=== PATIENT | male | born 1965 | race Caucasian/White ===

== ENCOUNTER → 2019-02-02 10:37 | Outpatient (CLI) | payer SELFPAY ==
[2019-02-02 12:38] LABS: ALB/GLOB Ratio 1.3 RATIO (0.9-2.4); AST(SGOT) 44 U/L (15-37); Alanine Aminotransfer ALT/SGPT 85 U/L (16-61); Albumin, Serum 4.2 g/dL (3.2-5.0); Alkaline Phosphatase 51 U/L (45-117); Anion Gap 8 (5-15); BUN 20 mg/dL (7-18); BUN/Creat Ratio 24.2 RATIO (10-20); Calcium,Total 8.8 mg/dL (8.5-10.1); Chloride 104 mmol/L (98-107); Cholesterol 224 mg/dL (200); Creatinine, Serum 0.82 mg/dL (0.70-1.30); EST Glomerular Filtration Rate 104 mL/min (>60); Est Glom Filt Rate - Afr Amer 126 mL/min (>60); Globulin 3.2 g/dL (2.2-4.2); Glucose 120 mg/dL (74-106); High Density Lipoprotein 38 mg/dL; Potassium 3.9 mmol/L (3.5-5.1); Protein, Total 7.4 g/dL (6.4-8.2); Sodium Level 138 mmol/L (136-145); Triglycerides 345 mg/dL; Very Low Density Lipoprotein 69 mg/dL (5-40)
== END ==
PROVIDERS: Family Provider Family Medicine; PCP Family Medicine; Referring Provider Family Medicine; Visit Provider Family Medicine
DX: I10 Essential (primary) hypertension (principal)
CPT/HCPCS: 36415; 80053; 80061

== ENCOUNTER → 2019-08-06 10:39 | Outpatient (CLI) | payer MEDICARE, SELFPAY ==
[2019-08-06 12:42] LABS: Anion Gap 9 (5-15); BUN 15 mg/dL (7-18); BUN/Creat Ratio 15.7 RATIO (10-20); Chloride 101 mmol/L (98-107); Cholesterol 200 mg/dL (200); Creatinine, Serum 0.96 mg/dL (0.70-1.30); EST Glomerular Filtration Rate 88 mL/min (>60); Est Glom Filt Rate - Afr Amer 106 mL/min (>60); Glucose 120 mg/dL (74-106); High Density Lipoprotein 38 mg/dL; Magnesium 2.1 mg/dL (1.6-2.6); Sodium Level 139 mmol/L (136-145); Triglycerides 286 mg/dL; Very Low Density Lipoprotein 57 mg/dL (5-40)
== END ==
PROVIDERS: Family Provider Family Medicine; PCP Family Medicine; Referring Provider Family Medicine; Visit Provider Family Medicine
DX: I10 Essential (primary) hypertension (principal)
CPT/HCPCS: 36415; 80048; 80061; 83735

== ENCOUNTER 2019-08-11 09:50 | Day surgery (SDC) | payer MEDICARE, SELFPAY ==
[2019-08-11] VITALS (7 sets, daily range): BP systolic 111–137; BP diastolic 75–92; PULSE 55–65; RESP 6–16; TEMP 36.2–36.4; O2SAT 96–100; BMI 24.7
[2019-08-11] MEDS: Lactated Ringers 1,000 ML 100 ML IV (10:14)
--- NOTE | 2019-08-11 10:58 | H&P.OPEN ---
History of Present Illness Date of Admission: 08/11/19 The patient is a 53 year old M here for screening colonoscopy. The patient reports that he is never had a colonoscopy in the past. He denies any abdominal pain or blood in stool. He has no family history of colon cancer. Past Medical/Surgical History - Planned Operation Planned Operative Procedure/s: colonoscopy Date of Operative Procedure: 08/11/19 Permit Signed: No S.O.S: No Is This Patient Having a Total Joint: No - Previous Hospitalizations/Surgeries HX Hospitalizations: No HX of Surgeries: BEATA. HERNIA-. GENITAL RECONSTRUCTIVE SURGERY . 2015 back surgery Any Problems With Anesthesia: No You/Your Family Experience Fever (Hyperthermia) With Anes: No Cholinesterase deficiency: No - Cardiovascular Hx Chest Pain within Last 2 months: No Hx of Irregular Heartbeat and/or Afib: No Hx Heart Attack: No Hx Congestive Heart Failure: No Hx Rheumatic Fever: No Hx Hypertension: Yes - states controlled with meds Hx Internal Defibrillator: No Hx Pacemaker: No Hx Cardiac Catheterization: No Hx Cardiac Surgery/Stents/Etc.: No Hx Stress Test: Yes - echo 2012. states neg HX Edema: No Hx Pain in Legs when Walking/Leg Cramps: No - Respiratory Chronic Cough: No HX of Shortness of Breath: Yes - slightly sob with 2 flights stairs Hoarseness: No Hx Chronic Obstructive Pulmonary Disease (COPD): No Hx Asthma: No Hx Emphysema: No Hx Sleep Apnea: No CPAP: No BIPAP: No Hx Oxygen Use at Home: No Hx Respiratory Tract Infection/Cold (presently): No Do You Snore Loudly (louder than talking or can be heard): Yes Do You Often Feel Tired/ Fatigued/ Sleepy Dring Daytime?: Yes Has Anyone Observed You Stop Breathing During Sleep?: No Result (for STOP score): Positive Hx Smoking: Yes - quit 2006 Smoking Status: Former smoker - Gastrointestinal Hx Gastroesophageal Reflux: Yes - occas Controlled With Meds: Yes - otc tums as needed Hx Gastrointestinal Disorders: No Hx Gastrointestinal Bleed: No Hx Ulcer: No Hx Hiatal Hernia: No Difficulty Chewing/Swallowing: No Recent Onset of Swallowing Problems: No Special diet followed at home: No Hx Unplanned Weight Loss of 20#: No HX Unplanned Weight Gain of 20#: No - Neurological Hx Seizures: No HX Syncope/Blackout Spells/Unconsciousness: No Hx CVA/Stroke: No Hx Transient Ischemic Attacks (TIA): No Hx Multiple Sclerosis: No Hx Parkinson's Disease: No Hx Head/Neck Injury: Yes - hx injury as child, not recent Hx Headaches: No Hx Back Injury/Pain: Yes - hx back surgery/ back pain/nerve damage Recent Onset of Speech Difficulty: No Restless Legs: Yes - occas Does patient have nerve stimulator: No Patient instructed to have device shut off: No Rep notified?: No - Blood Disorder Hx Leukemia: No Bleeding Tendencies: No Hx Deep Vein Thrombosis: No Hx High Cholesterol: Yes - on med Blood Transmitted Disease: No Hx Hepatitis: No Hx Cirrhosis: No Hx Anemia: No Hx Blood Disorders: No - Genitourinary Hx Renal Disease: No - uti per hx Hx Dialysis: No - Musculoskeletal Hx Arthritis: Yes - back/shoulders/knees Hx Rheumatoid Arthritis: No Hx Gout: No Recent Onset of an Orthopedic Problem: No - chronic pain - Endocrine Hx Diabetes: No Insulin: No Thyroid Disease: No Hx Steroid Therapy: No - Psycho/Social Hx Substance Use: No Hx Alcohol Use: No Hx Anxiety: Yes - on med Hx Depression: Yes Mental Illness: No Hx Dementia: No - Miscellaneous Hx Cancer: No Recent Exposure to Contagious Disease: No Active MRSA: No Hx of C-Diff: No Any Loose Teeth: Yes - loose tooth, top left Allergies [place] Allergy (Uncoded 08/11/19 10:04) Unknown Maternal Diabetes, Hypertension Paternal No pertinent history - Discharge Is Pt Admitted From a [facility], or a [facility]: No Who Could Help: Special Equipment Used at Home: cane After D/C, Where Do you Plan to Go: Return Home - Physical Exam Vitals/I&O's: Vital Signs Temp Pulse Resp BP Pulse Ox 97.6 F L 64 15 137/92 H 100 08/11/19 10:05 08/11/19 10:05 08/11/19 10:05 08/11/19 10:05 08/11/19 10:05 Oxygen Delivery Method Room Air Weight: 177 lb 4.026 oz Body Mass Index (BMI) 24.7 General: Alert, Oriented x3 Lungs: Normal air movement Cardiovascular: Regular rate, Regular Rhythm Abdomen: Soft, Non Tender, Non-Distended Current Medications Lactated Ringer's () 1,000 mls @ 100 mls/hr IV .Q10H SARKIS Last Admin: 08/11/19 10:14 Dose: 100 mls/hr Documented by: Assessment/Plan 53-year-old male screening colon cancer 1. I explained endoscopy in detail to the patient. I explained the risks including but not limited to stroke or heart attack with anesthesia, perforation of the GI tract, bleeding, infection. I explained that any of these could necessitate further emergency surgery. The patient understands and all questions were answered sufficiently. The patient wishes to proceed with procedure. Harshad De La Rosa MD Pager: [facility] [address] [place] [address], [address] [place] [address] Office: Surgery Risks - Colonoscopy Risks Include but are not Limited To: Risks include but are not limited to: Bleeding, perforation requiring further surgery, inability to complete colonoscopy requiring barium enema.
--- NOTE | 2019-08-11 11:26 | OP.COLON_ITS ---
Patient Name: King Edmondson Procedure Date: 08/11/2019 11:03 AM Date of : 1965 Age: 53 Procedure: Colonoscopy Indications: Screening for colorectal malignant neoplasm Providers: Harshad De La Rosa MD Referring MD: Charlie Handy Medicines: Monitored Anesthesia Care Patient Profile: This is a 53 year old male. Refer to note in patient chart for documentation of history and physical. Last Colonoscopy: none. The patient's first colonoscopy is today. Complications: No immediate complications. Estimated blood loss: None. Procedure: Pre-Anesthesia Assessment: - Prior to the procedure, a History and Physical was performed, and patient medications and allergies were reviewed. The patient's tolerance of previous anesthesia was also reviewed. The risks and benefits of the procedure and the sedation options and risks were discussed with the patient. All questions were answered, and informed consent was obtained. Prior Anticoagulants: The patient has taken no previous anticoagulant or antiplatelet agents. After reviewing the risks and benefits, the patient was deemed in satisfactory condition to undergo the procedure. After I obtained informed consent, the scope was passed under direct vision. Throughout the procedure, the patient's blood pressure, pulse, and oxygen saturations were monitored continuously. The pediatric colonoscope was introduced through the anus and advanced to the cecum, identified by appendiceal orifice and ileocecal valve. The colonoscopy was performed without difficulty. The patient tolerated the procedure well. The quality of the bowel preparation was good. Scope In: 11:11:59 AM Scope Withdrawal Time 0 hours 6 minutes 46 seconds Scope Out: 11:23:08 AM Total Procedure Duration Time 0 hours 11 minutes 9 seconds Findings: The entire examined colon appeared normal on direct and retroflexion views. Impression: - The entire examined colon is normal on direct and retroflexion views. - No specimens collected. Recommendation: - Discharge patient to home. - Resume previous diet. - Continue present medications. - Repeat colonoscopy in 10 years for screening purposes. Procedure Code(s): --- Professional --- 89540, Colonoscopy, flexible; diagnostic, including collection of specimen(s) by brushing or washing, when performed (separate procedure) Diagnosis Code(s): --- Professional --- Z12.11, Encounter for screening for malignant neoplasm of colon CPT copyright 2017 [employer]. All rights reserved. 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 Harshad De La Rosa MD 08/11/2019 11:26:13 AM This report has been signed electronically. Number of Addenda: 0 Note Initiated On: 08/11/2019 11:03 AM
== END 2019-08-11 12:05 | disposition home or self-care (01) ==
LOC: EN 09:54 → AC 10:00
PROVIDERS: Family Provider Family Medicine; PCP Family Medicine; Referring Provider Family Medicine; Visit Provider Surgery
PROC: 0DJD8ZZ Inspection of Lower Intestinal Tract, Via Natural or Artificial Opening Endoscopic (ICD-10-PCS; CPT 45378; principal; 2019-08-11 10:55)
DX: Z12.11 Encounter for screening for malignant neoplasm of colon (principal); I10 Essential (primary) hypertension; E78.00 Pure hypercholesterolemia, unspecified; F32.9 Major depressive disorder, single episode, unspecified; F41.9 Anxiety disorder, unspecified; Z79.899 Other long term (current) drug therapy; Z87.891 Personal history of nicotine dependence
CPT/HCPCS: G0121; J7120

== ENCOUNTER → 2019-10-28 13:54 | Outpatient (CLI) | payer MEDICARE, SELFPAY ==
[2019-08-11 10:05] VITALS: BMI 24.7
--- NOTE | 2019-10-28 14:12 | RAD_ITS ---
HISTORY: PAIN, NKI EXAMINATION/TECHNIQUE: XR Hips Bilateral with Pelvis when performed; 5 images: AP pelvis, 2 views left hip, and 2 views of the right hip. COMPARISON: None FINDINGS: PELVIC BONES: No displaced fracture, destructive or sclerotic lesions. Note that overlapping bowel shadows may however obscure fine detail. Sacroiliac joints are unremarkable. No widening of the pubic symphisis. HIPS: The articular structures are unremarkable. No displaced fracture seen in this frontal view. SOFT TISSUES: No soft tissue swelling or gas. Springlike metallic devices are present superimposed over the pelvis related to hernia repair RAD/Hips B/L min 2 views w/ Pelvis IMPRESSION: No evidence of displaced pelvic or hip fracture. at 0602 Reported and signed by: Milan Barajas MD Electronically Signed: Milan Barajas MD at 6:01 EST Tel , Service support ,
== END ==
LOC: MTLAB 14:00 → MTRAD 14:01
PROVIDERS: PCP Family Medicine
DX: R10.30 Lower abdominal pain, unspecified (principal)
CPT/HCPCS: 73521

== ENCOUNTER → 2020-03-23 | Outpatient (CLI) | payer MEDICARE, SELFPAY ==
[2019-08-11 10:05] VITALS: BMI 24.7
[2020-03-23 10:58] LABS: ALB/GLOB Ratio 1.2 RATIO (0.9-2.4); AST(SGOT) 30 U/L (15-37); Alanine Aminotransfer ALT/SGPT 84 U/L (16-61); Alkaline Phosphatase 47 U/L (45-117); Anion Gap 8 (5-15); BUN 16 mg/dL (7-18); BUN/Creat Ratio 19.6 RATIO (10-20); Calcium,Total 8.8 mg/dL (8.5-10.1); Chloride 103 mmol/L (98-107); Cholesterol 160 mg/dL (200); Creatinine, Serum 0.82 mg/dL (0.70-1.30); EST Glomerular Filtration Rate 105 mL/min (>60); Est Glom Filt Rate - Afr Amer 127 mL/min (>60); Globulin 3.3 g/dL (2.2-4.2); Glucose 110 mg/dL (74-106); High Density Lipoprotein 42 mg/dL; PSA,Total - Annual Screen 0.45 ng/mL (0.00-4.00); Potassium 3.7 mmol/L (3.5-5.1); Protein, Total 7.3 g/dL (6.4-8.2); Sodium Level 137 mmol/L (136-145); Triglycerides 146 mg/dL; Very Low Density Lipoprotein 29 mg/dL (5-40)
== END | disposition home or self-care (01) ==
LOC: MFPLAB 09:24
PROVIDERS: PCP Family Medicine; Visit Provider Family Medicine
DX: Z00.00 Encounter for general adult medical examination without abnormal findings (principal); I10 Essential (primary) hypertension; Z12.5 Encounter for screening for malignant neoplasm of prostate
CPT/HCPCS: 36415; 80053; 80061; 84153; G0103

== ENCOUNTER → 2020-12-01 12:17 | Outpatient (CLI) | payer MEDICARE, SELFPAY ==
[2020-12-01 15:06] LABS: Absolute Lymphocyte Count 2.73 X10^3/uL (0.83-4.51); Absolute Neutrophil Count 3.8 X10^3/uL (2.0-7.7); Basophil# 0.05 X10^3/uL; Basophil% 0.6 % (0-1); Eosinophil# 0.38 X10^3/uL; Eosinophils% 4.9 % (0-5); Hematocrit 51.8 % (40-54); Hemoglobin 17.3 g/dL (13.0-16.5); Lymphocyte # 2.73 X10^3/ul (4.0); Lymphocyte % 35.3 % (19-41); Mean Corp Hgb Conc 33.4 g/dL (32-36); Mean Corpuscular Hgb 32.8 pg (27.0-32.0); Mean Corpuscular Volume 98.1 fL (80-94); Mean Platelet Vol. 9.7 fl (6.2-12.0); Monocyte# 0.69 X10^3/uL; Monocyte% 8.9 % (0-10); NRBC Flagged by Analyzer 0 % (0-5); Neutrophil # 3.81 X10^3/uL (2.7-7.7); Neutrophil % 49.4 % (47-70); Platelet Count 217 K/mm3 (150-450); RBC Distribution Width CV 12.5 % (11.6-14.6); RBC Distribution Width SD 45.1 fl (35.1-43.9); Red Blood Count 5.28 M/mm3 (4.6-6.2); White Blood Count 7.7 K/mm3 (4.4-11.0)
[2020-12-01 15:27] LABS: Erythrocyte Sedimentation Rate 6 mm/hr (0-20)
[2020-12-01 16:11] LABS: ALB/GLOB Ratio 1.2 RATIO (0.9-2.4); AST(SGOT) 52 U/L (15-37); Alanine Aminotransfer ALT/SGPT 147 U/L (16-61); Albumin, Serum 4.2 g/dL (3.2-5.0); Alkaline Phosphatase 69 U/L (45-117); Anion Gap 8 (5-15); BUN 14 mg/dL (7-18); BUN/Creat Ratio 16.9 RATIO (10-20); CRP, High Sensitivity Cardiac 5.35 mg/L; Calcium,Total 9.3 mg/dL (8.5-10.1); Chloride 100 mmol/L (98-107); Creatinine, Serum 0.83 mg/dL (0.70-1.30); EST Glomerular Filtration Rate 103 mL/min (>60); Est Glom Filt Rate - Afr Amer 125 mL/min (>60); Globulin 3.4 g/dL (2.2-4.2); Glucose 146 mg/dL (74-106); Potassium 4.1 mmol/L (3.5-5.1); Protein, Total 7.6 g/dL (6.4-8.2); Sodium Level 137 mmol/L (136-145); Thyroid Stim Hormone (TSH) 4.02 uIU/mL (0.358-3.74)
[2020-12-05 09:41] LABS: Free T3 3.3 pg/mL (2.18-3.98); T4 Free Direct 0.94 ng/dL (0.76-1.46)
== END ==
PROVIDERS: PCP Internal Medicine; Referring Provider Internal Medicine; Visit Provider Internal Medicine
DX: G62.9 Polyneuropathy, unspecified (principal); F41.9 Anxiety disorder, unspecified; E78.5 Hyperlipidemia, unspecified; I10 Essential (primary) hypertension; R51.9 Headache, unspecified; E55.9 Vitamin D deficiency, unspecified; E78.1 Pure hyperglyceridemia
CPT/HCPCS: 36415; 80053; 82306; 84443; 85025; 85652; 86141

== ENCOUNTER → 2020-12-01 12:44 | Outpatient (CLI) | payer MEDICARE, SELFPAY ==
--- NOTE | 2020-12-01 12:46 | CT_ITS ---
STUDY: CT BRAIN WITHOUT CONTRAST REASON FOR EXAM: Male, 55 years old. HEADACHE RADIATION DOSAGE (If Supplied By Facility): CTDIvol = ( 44.99 ) mGy, DLP = ( 779.24 ) mGycm TECHNIQUE: Transaxial CT imaging of the brain was performed without administration of intravenous contrast material. Individualized dose optimization techniques were used for this CT. COMPARISON: No relevant priors. FINDINGS: Normal soft tissue structures. Normal calvarium. Normal size ventricles and extra-axial spaces for the patient''s age. Normal white matter tracts of the cerebral hemispheres. Normal basal ganglia and thalami. Normal brainstem. Normal cerebellum. There is no intracranial hemorrhage. There are no findings of an acute ischemic infarction. Normal visualized paranasal sinuses. CT/Brain/Head without Contrast IMPRESSION: Normal unenhanced CT scan of the brain. Electronically Signed: Horacio Sánchez MD at 13:08 EST , Service support ,
== END ==
PROVIDERS: PCP Internal Medicine; Referring Provider Internal Medicine; Visit Provider Internal Medicine
DX: R51.9 Headache, unspecified (principal); G62.9 Polyneuropathy, unspecified; F41.9 Anxiety disorder, unspecified; E78.5 Hyperlipidemia, unspecified; I10 Essential (primary) hypertension; E55.9 Vitamin D deficiency, unspecified; E78.1 Pure hyperglyceridemia
CPT/HCPCS: 36415; 70450; 80053; 82306; 84439; 84443; 84481; 85025; 85652; 86141

== ENCOUNTER → 2020-12-28 12:25 | Outpatient (CLI) | payer MEDICARE, SELFPAY ==
--- NOTE | 2020-12-28 12:26 | MRI_ITS ---
STUDY: MRI BRAIN WITHOUT CONTRAST REASON FOR EXAM: Male, 55 years old. New onset KIM TECHNIQUE: Standardized multiplanar fat and water weighted pulse sequences were obtained. COMPARISON: 12/01/2020 FINDINGS: Normal size of the ventricles and extra-axial spaces for the patient''s age. There are a limited number of small white matter hyperintensities, distributed throughout the deep white matter tracts of the cerebral hemispheres, consistent with mild chronic white matter ischemic changes. Normal bilateral basal ganglia. There is no extra-axial fluid accumulation. Normal sella turcica, pituitary gland, infundibular stalk, optic chiasm and hypothalamus. Normal tectal plate and pineal gland. Normal midbrain, holger and medulla. Normal cerebellum. Normal basal cisterns. Normal bilateral temporal bones. MRI/Brain without Contrast IMPRESSION: No acute intracranial abnormality. Electronically Signed: Sariah Carrero MD at 12:12 EDT Tel , Service support ,
== END ==
PROVIDERS: PCP Internal Medicine; Referring Provider Internal Medicine; Visit Provider Internal Medicine
DX: R51.9 Headache, unspecified (principal)
CPT/HCPCS: 70551

== ENCOUNTER → 2021-01-09 16:11 | Outpatient (CLI) | payer MEDICARE, SELFPAY ==
[2021-01-09 15:06] VITALS: BMI 27.3
[2021-01-09 16:17] LABS: Bacteria 0 SEEN /hpf (None Seen); Mucous, Urine 0 SEEN /hpf (<or=2+); Red Blood Cells-Urine 0 SEEN /hpf (0-5); Squamous Epithelial Cells - UA 0 SEEN /hpf (0-5); White Blood Cells 0 SEEN /hpf (0-5)
[2021-01-09 17:03] LABS: Color, Urine Yellow (Yellow); Glucose, Dipstick Normal (Normal); Ketone-Dipstick Negative (Negative); Leukocyte Esterase-Dipstick Negative /ul (Negative); Nitrite-Dipstick Negative (Negative); Occult Blood-Urine 10 /ul (Negative); Protein-Dipstick Negative (Negative); Specific Gravity, Urine 1.015 (1.002-1.030); Urine Bilirubin Dipstick Negative (Negative); Urine Clarity Clear (Clear); Urine Urobilinogen Normal (Normal); Urine pH 6.5 (5.0 - 8.0)
== END ==
PROVIDERS: PCP Internal Medicine; Visit Provider Internal Medicine
DX: R10.9 Unspecified abdominal pain (principal); R82.90 Unspecified abnormal findings in urine
CPT/HCPCS: 81001

== ENCOUNTER → 2021-01-13 11:54 | Outpatient (CLI) | payer MEDICARE, SELFPAY ==
[2021-01-09 15:06] VITALS: BMI 27.3
--- NOTE | 2021-01-13 11:55 | US_ITS ---
STUDY: RENAL ULTRASOUND - COMPLETE REASON FOR EXAM: Male, 55 years old. Abnormal urine finding, flank discomfort . Bilateral flank pain. TECHNIQUE: Ultrasound evaluation of the kidneys was performed with real-time and static raymond-scale imaging. COMPARISON: None. FINDINGS: RIGHT KIDNEY: Normal location of the right kidney, which is normal in size. The right kidney measures 12.4 cm x 6.8 cm x 6 cm. There is a normal cortex of the right kidney. The renal cortex measures 1.8 cm. There is no right renal mass or cyst. There are no right renal calculi. There is no right hydronephrosis. DISTAL RIGHT URETER: There is non-visualization of the distal right ureter. There is no demonstrated right ureterovesical junction calculus. There is a visualized right ureteral jet. LEFT KIDNEY: Normal location of the left kidney, which is normal in size. The left kidney measures 12.8 cm x 5.4 cm x 6.4 cm. There is a normal cortex of the left kidney. The renal cortex measures 2.0 cm. There is no left renal mass or cyst. There are no left renal calculi. There is no left hydronephrosis. DISTAL LEFT URETER: There is non-visualization of the distal left ureter. There is no demonstrated left ureterovesical junction calculus. There is a visualized left ureteral jet. BLADDER: The distended urinary bladder has a volume of 268 ml. There is a normal wall thickness of the distended urinary bladder. There is no demonstrated mass within the urinary bladder. There are no demonstrated bladder calculi. US/Kidney and Bladder IMPRESSION: Normal ultrasound of the kidneys and urinary bladder. Electronically Signed: Horacio Sánchez MD at 14:25 EDT , Service support ,
== END ==
PROVIDERS: PCP Internal Medicine; Referring Provider Internal Medicine; Visit Provider Internal Medicine
DX: R10.9 Unspecified abdominal pain (principal); R82.90 Unspecified abnormal findings in urine
CPT/HCPCS: 76770

== ENCOUNTER → 2021-03-21 11:58 | Outpatient (CLI) | payer MEDICARE, SELFPAY ==
[2021-01-09 15:06] VITALS: BMI 27.3
--- NOTE | 2021-03-21 12:01 | RAD_ITS ---
STUDY: X-RAY - LEFT SHOULDER REASON FOR EXAM: Male, 55 years old. SHOULDER PAIN TECHNIQUE: 4 view(s) of the shoulder. COMPARISON: None. FINDINGS: Normal glenohumeral articulation. Normal acromioclavicular joint. Normal acromion. Normal humeral head and visualized proximal humerus. The soft tissue structures are unremarkable. Normal visualized pulmonary apex. RAD/Shoulder min 2 Views IMPRESSION: Normal x-ray examination of the shoulder. Electronically Signed: Lee Boudreaux MD at 17:27 EDT Tel , Service support ,
--- NOTE | 2021-03-21 12:10 | RAD_ITS ---
STUDY: X-RAY - RIGHT SHOULDER REASON FOR EXAM: Male, 55 years old. SHOULDER PAIN TECHNIQUE: 4 view(s) of the shoulder. COMPARISON: None. FINDINGS: Normal glenohumeral articulation. Normal acromioclavicular joint. Normal acromion. Normal humeral head and visualized proximal humerus. The soft tissue structures are unremarkable. Normal visualized pulmonary apex. RAD/Shoulder min 2 Views IMPRESSION: Normal x-ray examination of the shoulder. Electronically Signed: Lee Boudreaux MD at 17:28 EDT Tel , Service support ,
== END ==
PROVIDERS: PCP Internal Medicine
DX: M25.511 Pain in right shoulder (principal); M25.512 Pain in left shoulder
CPT/HCPCS: 73030

== ENCOUNTER → 2021-04-04 11:07 | Outpatient (CLI) | payer MEDICARE, SELFPAY ==
[2021-01-09 15:06] VITALS: BMI 27.3
[2021-04-04 12:09] LABS: Absolute Lymphocyte Count 2.61 X10^3/uL (0.83-4.51); Absolute Neutrophil Count 3.6 X10^3/uL (2.0-7.7); Basophil# 0.03 X10^3/uL; Basophil% 0.4 % (0-1); Eosinophil# 0.17 X10^3/uL; Eosinophils% 2.5 % (0-5); Hematocrit 45.7 % (40-54); Hemoglobin 15.8 g/dL (13.0-16.5); Lymphocyte # 2.61 X10^3/ul (0.83-4.51); Lymphocyte % 37.8 % (19-41); Mean Corp Hgb Conc 34.6 g/dL (32-36); Mean Corpuscular Hgb 33.3 pg (27.0-32.0); Mean Corpuscular Volume 96.2 fL (80-94); Mean Platelet Vol. 9.8 fl (6.2-12.0); Monocyte# 0.44 X10^3/uL; Monocyte% 6.4 % (0-10); NRBC Flagged by Analyzer 0 % (0-5); Neutrophil # 3.63 X10^3/uL (2.7-7.7); Neutrophil % 52.5 % (47-70); Platelet Count 225 K/mm3 (150-450); RBC Distribution Width CV 12.2 % (11.6-14.6); RBC Distribution Width SD 43.5 fl (35.1-43.9); Red Blood Count 4.75 M/mm3 (4.6-6.2); White Blood Count 6.9 K/mm3 (4.4-11.0)
[2021-04-04 12:45] LABS: Anion Gap 5 (5-15); BUN 17 mg/dL (7-18); BUN/Creat Ratio 19.4 RATIO (10-20); CRP < 2.90 mg/L (0.0-3.0); Chloride 103 mmol/L (98-107); Creatinine, Serum 0.88 mg/dL (0.70-1.30); EST Glomerular Filtration Rate 96 mL/min (>60); Est Glom Filt Rate - Afr Amer 117 mL/min (>60); Glucose 190 mg/dL (74-106); Potassium 3.8 mmol/L (3.5-5.1); Rheumatoid Factor < 10.0 IU/mL (<15); Sodium Level 137 mmol/L (136-145)
[2021-04-04 12:57] LABS: Erythrocyte Sedimentation Rate 6 mm/hr (0-20)
[2021-04-06 07:41] LABS: CCP IgG Antibodies 4 units (0-19)
== END ==
PROVIDERS: PCP Internal Medicine
DX: M25.511 Pain in right shoulder (principal); G89.29 Other chronic pain; M25.512 Pain in left shoulder
CPT/HCPCS: 36415; 80048; 85025; 85652; 86140; 86200; 86431

== ENCOUNTER → 2021-09-25 14:42 | Outpatient (CLI) | payer MEDICARE, SELFPAY ==
--- NOTE | 2021-09-25 14:44 | RAD_ITS ---
STUDY: X-RAY - LEFT HUMERUS REASON FOR EXAM: Male, 55 years old. fall, proximal 1/3 pain of upper arm TECHNIQUE: 2 view(s) of the humerus. COMPARISON: None. FINDINGS: Normal visualized humerus. There is no demonstrated fracture or osseous destructive process. There is no demonstrated soft tissue abnormality. RAD/Humerus min 2 Views IMPRESSION: Normal x-ray examination of the humerus. Electronically Signed: Lee Boudreaux MD at 15:47 EST Tel , Service support ,
--- NOTE | 2021-09-25 14:50 | RAD_ITS ---
STUDY: X-RAY - LEFT SHOULDER REASON FOR EXAM: Male, 55 years old. fall, shoulder pain TECHNIQUE: 4 view(s) of the shoulder. COMPARISON: 03/21/2021 FINDINGS: Normal glenohumeral articulation. Normal acromioclavicular joint. Normal acromion. Normal humeral head and visualized proximal humerus. The soft tissue structures are unremarkable. Normal visualized pulmonary apex. RAD/Shoulder min 2 Views IMPRESSION: Normal x-ray examination of the shoulder. Electronically Signed: Lee Boudreaux MD at 15:47 EST Tel , Service support ,
== END ==
PROVIDERS: PCP Internal Medicine; Referring Provider Physician Assistant; Visit Provider Physician Assistant
DX: M25.519 Pain in unspecified shoulder (principal); M79.602 Pain in left arm; W19.XXXA Unspecified fall, initial encounter
CPT/HCPCS: 73030; 73060

== ENCOUNTER 2021-10-20 06:33 | Outpatient (CLI) | payer MEDICARE, SELFPAY ==
--- NOTE | 2021-10-20 08:51 | STRESSREP_ITS ---
Stress Test Report Date: 10-20-2021 Procedure: Pharmacologic stress nuclear imaging study Indications: Chest pain; dyspnea on exertion; arthritis musculoskeletal issues Consent: Per the patient Procedure: The patient underwent pharmacologic (Regadenoson 0.4mg ) evaluation with a peak heart rate of 101 beats per minute (61%predicted maximal heart rate) and a peak blood pressure of 154/94 mmHg. The baseline ECG demonstrated normal sinus rhythm. The peak pharmacologic ECG demonstrated no obvious ECG changes. There were no cardiac dysrhythmias pretest, during pharmacologic infusion, or recovery. There was no complaint of chest discomfort during pharmacologic infusion or recovery. The examination was discontinued secondary to completion of protocol. Impression: 1. Pharmacologic (Regadenoson) evaluation 2. Peak pharmacologic ECG with no obvious ECG change. 3. There were no cardiac dysrhythmias pretest, during pharmacologic infusion, or recovery. 4. Nuclear images pending Myocardial perfusion imaging study: Technique: The patient was injected with 11.6 millicuries of technetium 99m Cardiolite and subsequently rest SPECT Cardiolite nuclear imaging was obtained in the horizontal long, vertical long, and short axis views. The patient underwent pharmacologic (Regadenoson) evaluation with a peak heart rate of 101 beats per minute (61% percent predicted maximal heart rate) and a peak blood pressure of 154/94 mmHg. The patient was injected with 34.3 millicuries of technetium 99m Cardiolite and subsequently stress SPECT Cardiolite nuclear imaging was obtained in the horizontal long, vertical long, and short axis views. A gated Cardiolite study at peak stress was obtained. Interpretation: Rest and stress SPECT Cardiolite nuclear imaging status post realignment and normalization demonstrate the appearance of subtle diminished tracer uptake in portions of the basal towards mid inferior segments which appears to be somewhat more prominent at rest as opposed to stress. There is end systolic thickening and brightening. The gated Cardiolite study demonstrates myocardial thickening and inward wall motion. The reported LVEF is 72%. Impression: 1. Rest and stress SPECT current nuclear imaging demonstrate subtle diminished myocardial perfusion/tracer uptake in the basal towards mid inferior segments which appears to be more prominent at rest as opposed to stress appearing compatible with shifting soft tissue attenuation/artifact with no myocardial perfusion changes considered diagnostic for associated stress-induced myocardial ischemia. 2. The gated Cardiolite study reports an LVEF of 72 %. This note was generated with [employer] software. It may contain incorrect words, spelling, and punctuation that were not noted in checking the note before signing.
== END 2021-10-20 23:59 | disposition short-term general hospital (02) ==
PROVIDERS: PCP Internal Medicine; Referring Provider Internal Medicine; Visit Provider Internal Medicine
DX: R07.89 Other chest pain (principal); E78.1 Pure hyperglyceridemia; I10 Essential (primary) hypertension; E78.5 Hyperlipidemia, unspecified; R06.00 Dyspnea, unspecified
CPT/HCPCS: 78452; 93017; A9500; A4216; J2785

== ENCOUNTER 2021-12-01 10:06 | Outpatient (CLI) | payer MEDICARE, SELFPAY ==
[2021-12-01 11:40] LABS: Absolute Lymphocyte Count 2.72 X10^3/uL (0.83-4.51); Absolute Neutrophil Count 4.3 X10^3/uL (2.0-7.7); Basophil# 0.04 X10^3/uL; Basophil% 0.5 % (0-1); Eosinophil# 0.31 X10^3/uL; Eosinophils% 3.9 % (0-5); Hematocrit 49.8 % (40-54); Hemoglobin 17.7 g/dL (13.0-16.5); Lymphocyte # 2.72 X10^3/ul (0.83-4.51); Lymphocyte % 33.9 % (19-41); Mean Corp Hgb Conc 35.5 g/dL (32-36); Mean Corpuscular Hgb 34.5 pg (27.0-32.0); Mean Corpuscular Volume 97.1 fL (80-94); Mean Platelet Vol. 9.9 fl (6.2-12.0); Monocyte# 0.62 X10^3/uL; Monocyte% 7.7 % (0-10); NRBC Flagged by Analyzer 0 % (0-5); Neutrophil # 4.31 X10^3/uL (2.7-7.7); Neutrophil % 53.6 % (47-70); Platelet Count 251 K/mm3 (150-450); RBC Distribution Width SD 43.3 fl (35.1-43.9); Red Blood Count 5.13 M/mm3 (4.6-6.2)
[2021-12-01 12:02] LABS: Hemoglobin A1c 6.4 % (3.8-5.6)
[2021-12-01 12:13] LABS: ALB/GLOB Ratio 1.1 RATIO (0.9-2.4); AST(SGOT) 35 U/L (15-37); Alanine Aminotransfer ALT/SGPT 84 U/L (16-61); Alkaline Phosphatase 61 U/L (45-117); Anion Gap 6 (5-15); BUN 17 mg/dL (7-18); BUN/Creat Ratio 18.6 RATIO (10-20); Calcium,Total 9.4 mg/dL (8.5-10.1); Chloride 103 mmol/L (98-107); Cholesterol 199 mg/dL (200); Creatinine, Serum 0.92 mg/dL (0.70-1.30); EST Glomerular Filtration Rate 91 mL/min (>60); Est Glom Filt Rate - Afr Amer 111 mL/min (>60); Free T3 2.8 pg/mL (2.18-3.98); Globulin 3.5 g/dL (2.2-4.2); Glucose 129 mg/dL (74-106); High Density Lipoprotein 37 mg/dL; PSA,Total - Annual Screen 0.42 ng/mL (0.00-4.00); Potassium 4.1 mmol/L (3.5-5.1); Protein, Total 7.5 g/dL (6.4-8.2); Sodium Level 138 mmol/L (136-145); T4 Free Direct 0.83 ng/dL (0.76-1.46); Thyroid Stim Hormone (TSH) 1.68 uIU/mL (0.358-3.74); Triglycerides 291 mg/dL; Very Low Density Lipoprotein 58 mg/dL (5-40)
[2021-12-01 12:30] LABS: Vitamin D,25 Hydroxy 18.9 ng/mL
== END 2021-12-01 23:59 | disposition home or self-care (01) ==
PROVIDERS: PCP Internal Medicine; Referring Provider Internal Medicine; Visit Provider Internal Medicine
DX: R73.9 Hyperglycemia, unspecified (principal); R06.00 Dyspnea, unspecified; E78.1 Pure hyperglyceridemia; I10 Essential (primary) hypertension; F41.9 Anxiety disorder, unspecified; E78.5 Hyperlipidemia, unspecified; E55.9 Vitamin D deficiency, unspecified; Z12.5 Encounter for screening for malignant neoplasm of prostate
CPT/HCPCS: 36415; 80053; 80061; 82306; 83036; 84153; 84439; 84443; 84481; 85025; G0103

== ENCOUNTER 2022-01-04 15:30 | Outpatient (RCR) | payer MEDICARE, SELFPAY ==
--- NOTE | 2022-01-01 16:00 | HP.PTEVAL_ITS ---
Patient's Visit Information IFTIKHAR FLEMING is a 56 year old M referred to Physical Therapy by CÉSAR Parks with a diagnosis of L shoulder impingement. Date of Evaluation: 01/01/22 Physical Therapist: Marcelo Piña, PT, ATC - Visit Plan Frequency: 1x/Week Duration: 2 Weeks Plan: Issue and instruct pt on HEP of rotator cuff and scap stab ex's over the next 2 visits. - Subjective Pt report he fell on his L shoulder in August of 2021. Pt reports he had x- rays which revealed no fractures at that time. Pt reports he had an injection that has taken his pain away, but he feels weak at this time. Pt notes he is R hand dominant. Pt denies tingling or numbness at this time. Pt reports he had significant sleep difficulty until receiving the injection. Pt reports he has had this same pain in the past in both of his shoulders. Pt reports he is on disability at this time secondary to the state of his low back. Pt currently reports 0/10 pain while sitting at rest, 6/10 pain at worst. - Objective Neuro: B UE sensation is WNL to light touch. B bicepital reflex= 2/3. Palpation: Pt is sore along the distribution of the supraspinatus. No obvious deformity present. ROM: R shoulder flex= 160, abd= 160, ER= 75, IR WNL; L shoulder flex= 150, abd= 125, ER= 55. MMT: R shoulder flex= 20, abd= 20, ER= 20, IR= 22 #F: L shoulder flex= 19, abd= 20,ER= 18, IR= 21. Special tests: Minor pain with empty can and HK - Balance/Special Test Scores Quick DASH Score: 63.6350 - Goals Goal 1:: I with HEP in 1-2 visits - Rehabilitation Potential Physical Therapy Diagnosis: Pt has a Hx of L shoulder pain, weakness, and limited ROM secondary to L shoulder impingement Rehabilitation Potential: Good - Anticipated Interventions Patient/Client Instruction: Educate patient on: Condition, Plan of Care For the Purpose of:: To improve self management Therapeutic Exercise to Include: Strength training, Scapular Strength/Stabilization For the Purpose of:: To decrease pain, To improve muscle performance and motor function Cryotherapy (ice pack, ice massage): Yes For the Purpose of:: To decrease pain Thank you for the opportunity to evaluate your patient. For Medicare and Medicare HMO plans, please review the plan of care and approve it. It will need to be FAXED BACK to us at [phone] for Medicare purposes. For Medicare only, by signing this I certify the plan of care. Please let me know if there are questions or concerns regarding this plan of care. Physician Signature: Date:
--- NOTE | 2022-03-14 13:04 | HP.PT.NRP ---
IFTIKHAR FLEMING was seen in my office for initial evaluation on 01/01/22. The following Plan of Care was established for this patient: Initial Frequency: 1x/Week Initial Duration: 2 Weeks Patient/Client Instruction: Educate patient on: Condition, Plan of Care For the Purpose of:: To improve self management Therapeutic Exercise to Include: Strength training, Scapular Strength/Stabilization For the Purpose of:: To decrease pain, To improve muscle performance and motor function Cryotherapy (ice pack, ice massage): Yes For the Purpose of:: To decrease pain This patient was last seen in our office . Pertinent comments regarding their Physical therapy will appear below: Pt was treated for 2 PT visits for L shoulder pain through the date of 01/12/22. Pt has not returned through this date and is discontinued at this time. At this point I will be discontinuing this patient from physical therapy. I would be happy to see this patient again in the future if found appropriate by the physician. Thank you! Marcelo Piña, PT, ATC Balance/Gait/Functional tests - Balance/Special Test Scores Quick DASH Score: 63.6322
== END 2022-01-04 19:00 | disposition home or self-care (01) ==
LOC: PT 15:30
PROVIDERS: PCP Internal Medicine; Referring Provider Physician Assistant; Visit Provider Physician Assistant
DX: M75.42 Impingement syndrome of left shoulder (principal)
CPT/HCPCS: 97110; 97161

== ENCOUNTER → 2022-05-18 | Outpatient (CLI) | payer MEDICARE, SELFPAY ==
--- NOTE | 2022-05-18 12:36 | MRI_ITS ---
EXAM: MR LUMBAR SPINE WITHOUT AND WITH INTRAVENOUS CONTRAST CLINICAL INDICATION: pain TECHNIQUE: Multiplanar and multisequence MR images of the lumbar spine without and with intravenous contrast. This report was created using [employer] technology. CONTRAST: 17 cc of Dotarem IV. COMPARISON: 07/02/2016. FINDINGS: VERTEBRAE: Unremarkable. Vertebral body heights are preserved. Normal vertebral bodies and posterior elements. Normal alignment. No spondylolisthesis. There is preservation of the normal lumbar lordosis. SPINAL CORD: Unremarkable. Normal position and signal intensity of the conus medullaris. SOFT TISSUES: Unremarkable. DISCS/SPINAL CANAL/NEURAL FORAMINA: L1-L2: Unremarkable. Normal disc height and morphology. Normal spinal canal and lateral recesses. Normal neuroforamina. L2-L3: Mild disc space narrowing and broad-based bulge. Moderate facet arthropathy bilaterally left greater than right with prominent thickened left ligamentum flavum causing moderate left lateral recess narrowing. Canal diameter measures 10 mm. No focal nerve root impingement. Moderate left neural foraminal narrowing. No change since previous exam. L3-L4: Mild disc space narrowing and broad-based disc bulge. Mild facet arthropathy bilaterally. No significant spinal canal, lateral recess, or foraminal stenosis. L4-L5: Left L4 laminotomy. Moderate facet arthropathy bilaterally. No change left lateral recess scar with some encroachment upon the L5 nerve root. Mild bilateral facet arthropathy. Mild neural foraminal narrowing bilaterally with some encroachment upon the L4 nerve roots. Findings are similar to the prior exam. L5-S1: Left L5 laminotomy. Mild facet arthropathy bilaterally. Marked disc space narrowing with mild broad-based bulge. No significant spinal canal or lateral recess stenosis. Mild neural foraminal narrowing bilaterally. Findings are similar to the prior exam. MRI/Spine Lumbar W/WO Contrast IMPRESSION: 1. Left L4 laminotomy. Mild enhancing scar tissue left lateral recess with some encroachment upon the left L5 nerve root. Bilateral neural foraminal narrowing at L4-5. Findings are unchanged since the previous exam. 2. Left L5 laminotomy. No significant spinal canal or lateral recess stenosis. Mild neural foraminal narrowing bilaterally. No significant change since the previous exam. 3. Prominent left-sided facet arthropathy L2-L3 with thickened ligamentum flavum causes moderate narrowing of the left lateral recess. Finding is unchanged since previous exam. Electronically Signed: Juancho Jha MD at 5:43 EDT ,
[2022-05-18 13:15] LABS: CREATININE FINGERSTICK < 0.9 mg/dL (0.70-1.30); EGFR FINGERSTICK > 60.0000 mL/min (>60)
== END | disposition home or self-care (01) ==
PROVIDERS: PCP Internal Medicine; Referring Provider Orthopaedic Surgery; Visit Provider Orthopaedic Surgery
DX: M51.16 Intervertebral disc disorders with radiculopathy, lumbar region (principal)
CPT/HCPCS: 72158; A9575

== ENCOUNTER → 2022-08-01 | Outpatient (CLI) | payer MEDICARE, SELFPAY ==
--- NOTE | 2022-08-01 15:41 | NEURO ---
NCS and/or EMG Patient Report Ordering Doctor: Leonardo Baez DATE OF SERVICE: 08/01/22 King presents for electrodiagnostic testing of the lower limbs. He reports numbness and tingling in both legs. Electrodiagnostic findings: Peroneal motor nerve demonstrates normal distal latency, amplitude and conduction velocity bilaterally. Normal tibial motor response bilaterally. Normal peroneal and tibial F waves. H reflex is prolonged bilaterally. Prolonged left and right sural latency. Prolonged right superficial peroneal latency. Normal medial plantar response bilaterally. On needle EMG, all muscles tested in the lower limbs, as well as lumbar paraspinals showed no evidence of denervation with normal motor unit action potentials. Electrodiagnostic impression: This is an abnormal study in the lower limbs 1. Electrodiagnostic findings suggestive of peripheral polyneuropathy, sensory greater than motor. Etiology of this condition is known. 2. No electrodiagnostic evidence is noted for lumbosacral radiculopathy.
== END | disposition home or self-care (01) ==
LOC: PSN 09:00
PROVIDERS: PCP Internal Medicine; Referring Provider Orthopaedic Surgery; Visit Provider Orthopaedic Surgery
DX: G62.9 Polyneuropathy, unspecified (principal); R20.0 Anesthesia of skin
CPT/HCPCS: 95886; 95912

== ENCOUNTER → 2022-08-20 | Outpatient (CLI) | payer MEDICARE, SELFPAY ==
[2022-08-20 12:20] LABS: Hematocrit 46.9 % (40-54); Hemoglobin 16.1 g/dL (13.0-16.5); Mean Corp Hgb Conc 34.3 g/dL (32-36); Mean Corpuscular Hgb 32.9 pg (27.0-32.0); Mean Corpuscular Volume 95.9 fL (80-94); Mean Platelet Vol. 9.7 fl (6.2-12.0); Platelet Count 243 K/mm3 (150-450); RBC Distribution Width SD 42.5 fl (35.1-43.9); Red Blood Count 4.89 M/mm3 (4.6-6.2); White Blood Count 6.2 K/mm3 (4.4-11.0)
[2022-08-20 12:46] LABS: Vitamin B12 356 pg/mL (211-911)
[2022-08-20 12:58] LABS: ALB/GLOB Ratio 1.2 RATIO (0.9-2.4); AST(SGOT) 32 U/L (15-37); Alanine Aminotransfer ALT/SGPT 64 U/L (16-61); Alkaline Phosphatase 57 U/L (45-117); Anion Gap 6 (5-15); BUN 16 mg/dL (7-18); BUN/Creat Ratio 18.7 RATIO (10-20); Chloride 101 mmol/L (98-107); Creatinine, Serum 0.85 mg/dL (0.70-1.30); EST Glomerular Filtration Rate 99 mL/min (>60); Est Glom Filt Rate - Afr Amer 119 mL/min (>60); Globulin 3.2 g/dL (2.2-4.2); Glucose 119 mg/dL (74-106); Potassium 4.1 mmol/L (3.5-5.1); Protein, Total 7.2 g/dL (6.4-8.2); Sodium Level 136 mmol/L (136-145); Thyroid Stim Hormone (TSH) 1.76 uIU/mL (0.358-3.74)
[2022-08-20 13:04] LABS: Hemoglobin A1c 5.8 % (3.8-5.6)
[2022-08-23 11:08] LABS: Albumin 4.2 g/dL (2.9-4.4); Alpha-1-Globulins 0.2 g/dL (0.0-0.4); Alpha-2-Globulins 0.8 g/dL (0.4-1.0); Gamma Globulin 0.8 g/dL (0.4-1.8); Immunoglobulin A 212 mg/dL (90-386); Immunoglobulin G 766 mg/dL (603-1613); Immunoglobulin M 46 mg/dL (20-172); PROEL- TOTAL PROTEIN 6.9 g/dL (6.0-8.5)
[2022-08-23 20:43] LABS: Vitamin B1, Thiamine 140.2 nmol/L (66.5-200.0)
== END | disposition home or self-care (01) ==
PROVIDERS: PCP Internal Medicine; Referring Provider Psychiatry & Neurology Neurology; Visit Provider Psychiatry & Neurology Neurology
DX: I10 Essential (primary) hypertension (principal); G62.9 Polyneuropathy, unspecified; R73.9 Hyperglycemia, unspecified
CPT/HCPCS: 80053; 82607; 82746; 82784; 83036; 84165; 84425; 84443; 85027; 86334

== ENCOUNTER 2022-10-03 10:00 | Outpatient (RCR) | payer MEDICARE, SELFPAY ==
--- NOTE | 2022-08-22 09:13 | HP.PTEVAL ---
Patient's Visit Information IFTIKHAR FLEMING is a 56 year old M referred to Physical Therapy by Dr. Kenan Loya MD with a diagnosis of LOW BACK PAIN ,RADICULOPATHY LUMBAR. Date of Evaluation: 08/22/22 Physical Therapist: Felice Sharma, PT, Cert MDT, OCS - Visit Plan Frequency: 2x /Week Duration: 4 Weeks Plan: PT INTERVETIONS AQUATIC THERAPY ,DLS, BLE FLEXABLITY , BLE STRENGTHNEING ,POSTURAL EX'S AND FUNCTIONAL STRENGTHENING - Subjective This 56 y/o male presents to physical therapy with with lumbar radiculopathy. Patient has had low back pain radicular symptoms left February 2016. Patient has been recently diagnosis with polyneuropathy in legs with patient ENG nerve testing. Patient will have ENG testing in arms. Location of symptoms left LS with radicular symptoms left lateral hips. Aggravating factors walking/standing, bending ,lifting. Alleviating factors rest ,laying. Patient c/o paresthesia in feet left > right lower leg. Coughing/sneezing-.Bowel/bladder -. Patient has balance issues thus uses cane balance and pain. Patient has difficulty sleeping due to symptoms. Patient had recent MRI L4-S1 spinal stenosis/bulging discs. Patient was recommended ant-inflammatory. Patient condition affects QOL and function. SOCAIL: . VOCATION: disablity. - Pain Left Back Pain Intensity (Out of 10): 4 Pain Intensity Range: 10, N/A Left Lower Extremity Pain Intensity (Out of 10): 8 Pain Intensity Range: 10 - Objective POSTURE: mild forward posture. GAIT: ambulates with straight antalgic gait mild forward posture. NEURO: c/o paresthesia/tingling ,reflexes L3-4,L4-5,L5-S1 3/3 hyperreflexia ,light touch intact. SYMMTRIES: align. PALPATION: left LS. MMT: quads/hams 4/5 ,(peak force ) left 17.6 .right 18.9 ,ankle 4/5. LUMBAR ROM: flexion mod loss ,extension severe loss ,side glides min/mod loss. FLEXABLITY: hamstrings mod loss - Special Tests L/S Slump test left side: Negative L/S Slump test right side: Negative L/S Left Straight Leg Raise: Negative L/S Right Straight Leg Raise: Negative Lumbar Standing: Flexion - Mechanical Response: No effect Lumbar Standing: Flexion - Symptoms During Testing: Increases Lumbar Standing: Flexion - Symptoms After Testing: No worse Lumbar Standing: Extension - Mechanical Response: No effect Lumbar Standing: Extension - Symptoms During Testing: Increases Lumbar Standing: Extension - Symptoms After Testing: No worse Lumbar Standing: Right Side Glides - Mechanical Response: No effect Lumbar Standing: Right Side [place] - Symptoms During Testing: No effect Lumbar Standing: Right Side [place] - Symptoms After Testing: No effect Lumbar Standing: Left Side [place] - Mechanical Response: No effect Lumbar Standing: Left Side [place] - Symptoms During Testing: No effect Lumbar Standing: Left Side [place] - Symptoms After Testing: No effect - Balance/Special Test Scores Oswestry Low Back Score: 34 - Goals Goal 1:: Patient to be I with Aquatic therapy program for back Goal Time Frame: 4-6 Weeks Goal 2:: Patient to demonstrate 50% improvement with decrease pain and improved function Goal Time Frame: 4-6 Weeks Goal 3:: Patient improve lumbar ROM for function of recovery to put on shoes Goal Time Frame: 4-6 Weeks Goal 4:: Patient to improve peak force of hips by 5 to improve gait Goal Time Frame: 4-6 Weeks Goal 5:: Patient to improve back oswestry score by 5 points or> to improve QOL and function. - Rehabilitation Potential Physical Therapy Diagnosis: This patient has lumbar radiculopathy due to possible lateral stenosis with MRI showing stenosis with pain with positioning and motion testing worse with extension needs acne for gait thus needs skilled PT . Rehabilitation Potential: Good - Anticipated Interventions Patient/Client Instruction: Educate patient on: Condition, Plan of Care For the Purpose of:: To decrease pain, To increase ROM, To improve muscle performance and motor function, To improve ability to perform ADL's, To increase tolerance to activity/condition/position, To improve ability of physical actions for home/community/work/leisure, To improve gait and locomotor functions, To improve health of tissue, To decrease soft tissue restriction, To increase flexibility/ROM, To prevent re-injury Therapeutic Exercise to Include: Strength training, Endurance training, Body mechanics, Postural training, Flexibilty training, In an aquatic setting, Dynamic Lumbar Stabilization Comment: BLE For the Purpose of:: To decrease pain, To increase ROM, To improve muscle performance and motor function, To improve ability to perform ADL's, To increase tolerance to activity/condition/position, To improve ability of physical actions for home/community/work/leisure, To improve gait and locomotor functions, To improve health of tissue, To decrease soft tissue restriction, To increase flexibility/ROM, To prevent re-injury Thank you for the opportunity to evaluate your patient. For Medicare and Medicare HMO plans, please review the plan of care and approve it. It will need to be FAXED BACK to us at [phone] for Medicare purposes. For Medicare only, by signing this I certify the plan of care. Please let me know if there are questions or concerns regarding this plan of care. Physician Signature: Date:
--- NOTE | 2022-10-03 10:43 | HP.PTREVAL_ITS ---
Dr. Kenan Loya MD, It has been my pleasure to treat IFTIKHAR FLEMING over the last 10 visits for LOW BACK PAIN ,RADICULOPATHY LUMBAR. Please see the progress note below for an update on the physical therapy plan of care! Subjective: Patient has pain with certain activities with stepping ,lifting and bending aggravates radicular symptoms and standing < 10 mins. Walking can aggravates radicular symptoms . Goal increase overall strength and flexibility and core . Intermittent left leg. Patient needs lumbar surgery in the future. Patient has polyneuropathy Objective/Function: POSTURE: mild forward posture. GAIT: reciprocal pattern 2 point with cane. LUMBAR ROM: flexion mod loss ,extension loss severe loss pain. FLEXABLITY: hamstrings mod tight. MMT: quad 4-/5 ,hamstrings 4/5,hip flexion 4-/5 ,ankle 4/5 Plan Plan: CONT WITH POC WITH PT INTERVETIONS AQUATIC THERAPY ,DLS, BLE FLEXABLITY , BLE STRENGTHNEING ,POSTURAL EX'S AND FUNCTIONAL STRENGTHENING Balance/Gait/Functional tests - Balance/Special Test Scores Oswestry Low Back Score: 34 Goals Goal 1:: Patient to be I with Aquatic therapy program for back Goal Time Frame: 4-6 Weeks Goal Progress: Progressing Goal 2:: Patient to demonstrate 50% improvement with decrease pain and improved function Goal Time Frame: 4-6 Weeks Goal Progress: Progressing Goal 3:: Patient improve lumbar ROM for function of recovery to put on shoes Goal Time Frame: 4-6 Weeks Goal Progress: Progressing Goal 4:: Patient to improve peak force of hips by 5 to improve gait Goal Time Frame: 4-6 Weeks Goal Progress: Progressing Goal 5:: Patient to improve back oswestry score by 5 points or> to improve QOL and function. Goal Progress: Progressing Anticipated Interventions Patient/Client Instruction: Educate patient on: Condition, Plan of Care For the Purpose of:: To decrease pain, To increase ROM, To improve muscle performance and motor function, To improve ability to perform ADL's, To increase tolerance to activity/condition/position, To improve ability of physical actions for home/community/work/leisure, To improve gait and locomotor functions, To improve health of tissue, To decrease soft tissue restriction, To increase flexibility/ROM, To prevent re-injury Therapeutic Exercise to Include: Strength training, Endurance training, Body mechanics, Postural training, Flexibilty training, In an aquatic setting, Dynamic Lumbar Stabilization Comment: BLE For the Purpose of:: To decrease pain, To increase ROM, To improve muscle performance and motor function, To improve ability to perform ADL's, To increase tolerance to activity/condition/position, To improve ability of physical actions for home/community/work/leisure, To improve gait and locomotor functions, To improve health of tissue, To decrease soft tissue restriction, To increase flexibility/ROM, To prevent re-injury Please do not hesitate to contact me at [phone] by phone or Fax: if you have questions or concerns regarding this new plan of care! Sincerely, Felice Sharma, PT, Cert MDT, OCS
--- NOTE | 2023-01-31 15:38 | HP.PTDCSUM ---
It has been my pleasure to treat IFTIKHAR FLEMING referred by Dr. Kenan Loya MD, with the diagnosis of LOW BACK PAIN ,RADICULOPATHY LUMBAR for a total of 10 visit(s). Discharge Date: Please see the following information for a summary of their discharge status. Subjective: Patient has pain with certain activities with stepping ,lifting and bending aggravates radicular symptoms and standing < 10 mins. Walking can aggravates radicular symptoms . Goal increase overall strength and flexibility and core . Intermittent left leg. Patient needs lumbar surgery in the future. Patient has polyneuropathy Left Back Pain Intensity (Out of 10): 5 Left Lower Extremity Pain Intensity (Out of 10): 5 feet Pain Intensity (Out of 10): 5 % Improvement: 10 Objective/Function: POSTURE: mild forward posture. GAIT: reciprocal pattern 2 point with cane. LUMBAR ROM: flexion mod loss ,extension loss severe loss pain. FLEXABLITY: hamstrings mod tight. MMT: quad 4-/5 ,hamstrings 4/5,hip flexion 4-/5 ,ankle 4/5 Goal 1:: Patient to be I with Aquatic therapy program for back Goal Progress: Progressing Goal 2:: Patient to demonstrate 50% improvement with decrease pain and improved function Goal Progress: Progressing Goal 3:: Patient improve lumbar ROM for function of recovery to put on shoes Goal Progress: Progressing Goal 4:: Patient to improve peak force of hips by 5 to improve gait Goal Progress: Progressing Goal 5:: Patient to improve back oswestry score by 5 points or> to improve QOL and function. Goal Progress: Progressing Plan: d/c If there are questions or concerns regarding this patient's physical therapy, please feel free to call me at [phone]. Thank you for the referral of this patient. Sincerely, Feilce Sharma, PT, Cert MDT, OCS Balance/Gait/Functional tests - Balance/Special Test Scores Oswestry Low Back Score: 34
== END 2022-10-03 19:00 | disposition home or self-care (01) ==
LOC: PT 10:00
PROVIDERS: PCP Internal Medicine; Referring Provider Psychiatry & Neurology Neurology; Visit Provider Psychiatry & Neurology Neurology
DX: M54.16 Radiculopathy, lumbar region
CPT/HCPCS: 97113; 97162; 97530

== ENCOUNTER → 2022-10-17 | Outpatient (CLI) | payer MEDICARE, SELFPAY ==
--- NOTE | 2022-10-17 15:42 | NEURO ---
NCS and/or EMG Patient Report Ordering Doctor: Kenan Loya DATE OF SERVICE: 10/17/22 King presents for electrodiagnostic testing of the upper limbs. He reports aching in both arms with weakness. Electrodiagnostic Findings: Median motor nerve demonstrates prolonged distal latency with normal amplitude and borderline reduced conduction velocity. Left median motor nerve demonstrates mildly prolonged distal latency with normal amplitude and borderline reduced conduction velocity. Sensory responses are within normal limits. Ulnar motor response normal bilaterally. Normal median ulnar F waves. On needle EMG, all muscles tested in the upper limbs showed no evidence of denervation with normal motor unit action potentials. Electrodiagnostic impression: This is an abnormal study in the upper limbs. 1. 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 This is consistent with a mild bilateral carpal tunnel syndrome.
== END | disposition home or self-care (01) ==
PROVIDERS: PCP Internal Medicine; Visit Provider Psychiatry & Neurology Neurology
DX: M54.2 Cervicalgia (principal); R29.898 Other symptoms and signs involving the musculoskeletal system
CPT/HCPCS: 95886; 95913

== ENCOUNTER → 2022-12-17 | Outpatient (CLI) | payer MEDICARE, SELFPAY ==
[2022-12-17 17:52] LABS: Hemoglobin A1c 5.9 % (3.8-5.6)
== END | disposition home or self-care (01) ==
LOC: MTLAB 14:50
PROVIDERS: PCP Internal Medicine; Referring Provider Psychiatry & Neurology Neurology; Visit Provider Psychiatry & Neurology Neurology
DX: R73.9 Hyperglycemia, unspecified (principal)
CPT/HCPCS: 36415; 83036

== ENCOUNTER → 2023-01-16 | Outpatient (CLI) | payer MEDICARE, SELFPAY ==
[2023-01-16 10:21] LABS: Absolute Lymphocyte Count 2.61 X10^3/uL (0.83-4.51); Absolute Neutrophil Count 4.9 X10^3/uL (2.0-7.7); Basophil# 0.05 X10^3/uL; Basophil% 0.6 % (0-1); Eosinophil# 0.24 X10^3/uL; Eosinophils% 2.8 % (0-5); Hematocrit 48.5 % (40-54); Hemoglobin 16.4 g/dL (13.0-16.5); Lymphocyte # 2.61 X10^3/ul (0.83-4.51); Lymphocyte % 30.4 % (19-41); Mean Corp Hgb Conc 33.8 g/dL (32-36); Mean Corpuscular Volume 97.6 fL (80-94); Mean Platelet Vol. 9.7 fl (6.2-12.0); Monocyte# 0.76 X10^3/uL; Monocyte% 8.8 % (0-10); NRBC Flagged by Analyzer 0 % (0-5); Neutrophil # 4.89 X10^3/uL (2.7-7.7); Neutrophil % 56.9 % (47-70); Platelet Count 252 K/mm3 (150-450); RBC Distribution Width CV 12.9 % (11.6-14.6); RBC Distribution Width SD 45.6 fl (35.1-43.9); Red Blood Count 4.97 M/mm3 (4.6-6.2); White Blood Count 8.6 K/mm3 (4.4-11.0)
[2023-01-16 10:32] LABS: Vitamin D,25 Hydroxy 15.3 ng/mL
[2023-01-16 10:47] LABS: ALB/GLOB Ratio 1.2 RATIO (0.9-2.4); AST(SGOT) 46 U/L (15-37); Alanine Aminotransfer ALT/SGPT 101 U/L (16-61); Albumin, Serum 3.8 g/dL (3.2-5.0); Alkaline Phosphatase 82 U/L (45-117); Anion Gap 7 (5-15); BUN 23 mg/dL (7-18); BUN/Creat Ratio 28.3 RATIO (10-20); Calcium,Total 8.8 mg/dL (8.5-10.1); Chloride 103 mmol/L (98-107); Cholesterol 205 mg/dL (200); Creatinine, Serum 0.81 mg/dL (0.70-1.30); EST Glomerular Filtration Rate 104 mL/min (>60); Est Glom Filt Rate - Afr Amer 126 mL/min (>60); Globulin 3.1 g/dL (2.2-4.2); Glucose 145 mg/dL (74-106); High Density Lipoprotein 36 mg/dL; PSA,Total - Annual Screen 0.43 ng/mL (0.00-4.00); Protein, Total 6.9 g/dL (6.4-8.2); Sodium Level 138 mmol/L (136-145); Thyroid Stim Hormone (TSH) 2.02 uIU/mL (0.358-3.74); Triglycerides 322 mg/dL; Very Low Density Lipoprotein 64 mg/dL (5-40)
== END | disposition home or self-care (01) ==
LOC: MTLAB 07:42
PROVIDERS: PCP Internal Medicine; Referring Provider Internal Medicine; Visit Provider Internal Medicine
DX: Z00.00 Encounter for general adult medical examination without abnormal findings (principal); I10 Essential (primary) hypertension; R53.83 Other fatigue; F32.A Depression, unspecified; R73.9 Hyperglycemia, unspecified; E78.5 Hyperlipidemia, unspecified; E55.9 Vitamin D deficiency, unspecified; Z12.5 Encounter for screening for malignant neoplasm of prostate
CPT/HCPCS: 36415; 80053; 80061; 82306; 84153; 84443; 85025; G0103

== ENCOUNTER → 2023-01-19 | Outpatient (CLI) | payer MEDICARE, SELFPAY ==
--- NOTE | 2023-01-19 08:03 | US_ITS ---
STUDY: ABDOMINAL ULTRASOUND - RIGHT UPPER QUADRANT REASON FOR VISIT: Male, 57 years old Elevated LFTs TECHNIQUE: Ultrasound evaluation of the right upper quadrant was performed with real-time and static augustin-scale imaging. TECHNICAL QUALITY: Adequate. COMPARISON: None. FINDINGS: Liver: The liver measures 17.5 cm. There is increased echogenicity consistent with fatty infiltration. The bile ducts are within normal limits. There is hepatic color flow. The direction of portal flow is hepatopetal. There is no demonstrated mass lesion. Gallbladder: Normal distended gallbladder. The gallbladder wall measures 2 mm. There is a negative sonographic Santos''s sign. There is no pericholecystic fluid. There are multiple echogenic structures within the gallbladder, consistent with multiple gallstones. Common Bile Duct (C.B.D.): The common bile duct measures 4 mm. Pancreas: Normal size of the head, body and tail of the pancreas. There is normal echogenicity of the pancreas. There is no demonstrated pancreatic mass or cyst. Right Kidney: Normal size of the right kidney. The right kidney measures 12.4 x 7.6 x 6.4 cm. Normal renal cortex. The right cortex measures 2.4 cm. There is no demonstrated renal mass or cyst. There is no right hydronephrosis. US/Liver IMPRESSION: Fatty liver, no discrete lesion Cholelithiasis, no sonographic evidence of acute cholecystitis Electronically Signed: Hollis Carr MD at 13:50 EDT ,
== END | disposition home or self-care (01) ==
PROVIDERS: PCP Internal Medicine; Referring Provider Internal Medicine; Visit Provider Internal Medicine
DX: R79.89 Other specified abnormal findings of blood chemistry (principal)
CPT/HCPCS: 76705

== ENCOUNTER → 2023-02-21 | Outpatient (CLI) | payer MEDICARE, SELFPAY ==
[2023-02-21 15:18] LABS: Erythrocyte Sedimentation Rate 4 mm/hr (0-20)
[2023-02-21 15:23] LABS: Hemoglobin A1c 6.1 % (3.8-5.6)
[2023-02-21 15:36] LABS: Absolute Lymphocyte Count 2.92 X10^3/uL (0.83-4.51); Absolute Neutrophil Count 3.5 X10^3/uL (2.0-7.7); Basophil# 0.06 X10^3/uL; Basophil% 0.8 % (0-1); Eosinophil# 0.26 X10^3/uL; Eosinophils% 3.5 % (0-5); Lymphocyte # 2.92 X10^3/ul (0.83-4.51); Lymphocyte % 39.6 % (19-41); Mean Corp Hgb Conc 35.6 g/dL (32-36); Mean Corpuscular Hgb 33.8 pg (27.0-32.0); Mean Corpuscular Volume 95.1 fL (80-94); Mean Platelet Vol. 9.4 fl (6.2-12.0); Monocyte# 0.62 X10^3/uL; Monocyte% 8.4 % (0-10); NRBC Flagged by Analyzer 0 % (0-5); Neutrophil # 3.49 X10^3/uL (2.7-7.7); Neutrophil % 47.4 % (47-70); Platelet Count 229 K/mm3 (150-450); RBC Distribution Width CV 11.9 % (11.6-14.6); RBC Distribution Width SD 41.7 fl (35.1-43.9); Red Blood Count 4.73 M/mm3 (4.6-6.2); White Blood Count 7.4 K/mm3 (4.4-11.0)
[2023-02-21 15:49] LABS: ALB/GLOB Ratio 1.3 RATIO (0.9-2.4); AST(SGOT) 42 U/L (15-37); Alanine Aminotransfer ALT/SGPT 86 U/L (16-61); Albumin, Serum 4.3 g/dL (3.2-5.0); Alkaline Phosphatase 80 U/L (45-117); Anion Gap 6 (5-15); BUN 21 mg/dL (7-18); BUN/Creat Ratio 21.8 RATIO (10-20); CPK Total, Creatine Kinase 267 U/L (39-308); CRP < 2.90 mg/L (0.0-3.0); Calcium,Total 9.4 mg/dL (8.5-10.1); Chloride 100 mmol/L (98-107); Creatinine, Serum 0.96 mg/dL (0.70-1.30); EST Glomerular Filtration Rate 86 mL/min (>60); Est Glom Filt Rate - Afr Amer 104 mL/min (>60); Ferritin 1442 ng/mL (26-388); Globulin 3.2 g/dL (2.2-4.2); Glucose 114 mg/dL (74-106); LDH 179 U/L (87-241); Protein, Total 7.5 g/dL (6.4-8.2); Sodium Level 136 mmol/L (136-145)
[2023-02-21 16:03] LABS: HIV - WCH Non-Reactive (Nonreactive)
[2023-02-22 10:55] LABS: Platelet Count 234 K/mm3 (150-450); RET-HE 35.8 pg (30-35); Reticulocyte Count 2.25 % (0.5-1.5)
[2023-02-22 10:59] LABS: Iron 279 ug/dL (65-175); Iron Binding Capacity,Total 314 ug/dL (250-450); PERCENT IRON SATURATION 88.9 % (15.0-55.0)
[2023-02-26 15:08] LABS: Endomysial Antibody IgA Negative (Negative); Immunoglobulin A 196 mg/dL (90-386); t-Transglutaminase IgA <2 U/mL (0-3)
[2023-02-27 02:07] LABS: Anti-Centromere B Ab <0.2 AI (0.0-0.9); Anti-Chromatin <0.2 AI (0.0-0.9); Anti-Jo <0.2 AI (0.0-0.9); Anti-Mitochondrial AB <20.0 Units (0.0-20.0); Anti-Scleroderma-70 AB <0.2 AI (0.0-0.9); Anti-dsDNA Ab <1 IU/mL (0-9); Beef <0.10 kU/L (Class 0); Chocolate <0.10 kU/L (Class 0); Clam <0.10 kU/L (Class 0); Codfish <0.10 kU/L (Class 0); Corn <0.10 kU/L (Class 0); Egg, White <0.10 kU/L (Class 0); Egg, Whole <0.10 kU/L (Class 0); Milk (Cow) <0.10 kU/L (Class 0); Peanut <0.10 kU/L (Class 0); Pork <0.10 kU/L (Class 0); RNP Ab 0.2 AI (0.0-0.9); SCALLOP <0.10 kU/L (Class 0); SESAME SEED <0.10 kU/L (Class 0); SJOGREN'S Anti-SS-A test < 0.2 AI (0.0-0.9); SJOGREN'S Anti-SS-B test < 0.2 AI (0.0-0.9); Shrimp <0.10 kU/L (Class 0); Smith Ab <0.2 AI (0.0-0.9); Soybean <0.10 kU/L (Class 0); Walnut, (Food) <0.10 kU/L (Class 0); Wheat <0.10 kU/L (Class 0)
[2023-02-27 10:09] LABS: Albumin 4.3 g/dL (2.9-4.4); Alpha-1-Globulins 0.2 g/dL (0.0-0.4); Alpha-2-Globulins 0.8 g/dL (0.4-1.0); Angiotensin Convert Enzyme < 15 U/L (14-82); Anti-Smooth Muscle ABS 5 Units (0-19); Ceruloplasmin 17.6 mg/dL (16.0-31.0); Copper, Serum or Plasma 85 ug/dL (69-132); Cytoplasmic Ab (C-ANCA) <1:20 titer (Neg:<1:20); Gamma Globulin 0.6 g/dL (0.4-1.8); Gastrin, Serum 62 pg/mL (0-115); HEPATITIS B SURFACE AG Negative (Negative); Haptoglobin 105 mg/dL (29-370); Hep C Antibodies Non Reactive (Non Reactive); Hepatitis A IgM Antibody Negative (Negative); Hepatitis B Core AB IgM Negative (Negative); Immunoglobulin A 192 mg/dL (90-386); Immunoglobulin E 234 IU/mL (6-495); Immunoglobulin G 788 mg/dL (603-1613); Immunoglobulin M 34 mg/dL (20-172); PROEL- TOTAL PROTEIN 6.9 g/dL (6.0-8.5); Perinuclear Ab (P-ANCA) <1:20 titer (Neg:<1:20)
== END | disposition home or self-care (01) ==
LOC: LAB 14:21
PROVIDERS: PCP Internal Medicine; Referring Provider Internal Medicine Gastroenterology; Visit Provider Internal Medicine Gastroenterology
DX: R79.89 Other specified abnormal findings of blood chemistry (principal); G62.9 Polyneuropathy, unspecified; R53.83 Other fatigue; R07.89 Other chest pain; R73.9 Hyperglycemia, unspecified; Z87.19 Personal history of other diseases of the digestive system; I10 Essential (primary) hypertension
CPT/HCPCS: 36415; 80053; 80074; 82140; 82164; 82390; 82525; 82550; 82728; 82784; 82785; 82941; 83010; 83036; 83516; 83540; 83550; 83615; 84165; 85025; 85045; 85610; 85652; 86003; 86005; 86140; 86225; 86235; 86255; 86256; 86334; 86703

== ENCOUNTER → 2023-02-28 | Outpatient (CLI) | payer MEDICARE, SELFPAY ==
[2023-03-01 21:07] LABS: Pancreatic Elastase, Fecal 122 (>200)
[2023-03-08 17:07] LABS: Calprotectin, Stool 42 ug/g (0-120); Fats, Neutral Normal (.); Fats, Total Normal (.)
== END | disposition home or self-care (01) ==
LOC: LABSPEC 10:53
PROVIDERS: PCP Internal Medicine; Referring Provider Internal Medicine Gastroenterology; Visit Provider Internal Medicine Gastroenterology
DX: Z87.19 Personal history of other diseases of the digestive system (principal); R79.89 Other specified abnormal findings of blood chemistry
CPT/HCPCS: 36415; 82274; 82653; 82705; 83630; 83993; 87177; 87209; 87329; 87493

== ENCOUNTER → 2023-03-02 | Outpatient (CLI) | payer MEDICARE, SELFPAY | END | disposition home or self-care (01) | LOC: LAB 09:46 | PROVIDERS: PCP Internal Medicine; Referring Provider Internal Medicine Gastroenterology; Visit Provider Internal Medicine Gastroenterology | DX: E83.119 Hemochromatosis, unspecified (principal) | CPT/HCPCS: 36415 ==

== ENCOUNTER → 2023-03-08 | Outpatient (CLI) | payer MEDICARE, SELFPAY ==
--- NOTE | 2023-03-08 09:07 | US_ITS ---
STUDY: ABDOMINAL ULTRASOUND - ELASTOGRAPHY REASON FOR VISIT: Male, 57 years old. Fatty infiltration of the liver. Elevated liver function tests. TECHNIQUE: Liver stiffness measurements were obtained on a [employer]box RS 85 ultrasound machine using a CA 1-7 probe following the SRU guidelines. 3 measurements were obtained using a 2-D-SWE method. TheIQR/M was 22% suggesting a quality data set. TECHNICAL QUALITY: Adequate. COMPARISON: None. FINDINGS: Liver: There is no demonstrated mass lesion. Median liver stiffness measured 12.3 kPa. Abdomen: There is no demonstrated mass lesion. US/Elastography Parenchyma/Organ IMPRESSION: Liver stiffness measures 12.3 kPa compatible with F2-F3 (Mild to moderate liver fibrosis) Metavir score. Electronically Signed: Horacio Sánchez MD at 14:33 EDT ,
== END | disposition home or self-care (01) ==
LOC: US 09:07
PROVIDERS: PCP Internal Medicine; Referring Provider Internal Medicine Gastroenterology; Visit Provider Internal Medicine Gastroenterology
DX: R79.89 Other specified abnormal findings of blood chemistry (principal); Z87.19 Personal history of other diseases of the digestive system
CPT/HCPCS: 76981

== ENCOUNTER → 2023-03-14 | Outpatient (CLI) | payer MEDICARE, SELFPAY ==
[2023-03-14 08:15] LABS: Absolute Lymphocyte Count 2.64 X10^3/uL (0.83-4.51); Absolute Neutrophil Count 5.3 X10^3/uL (2.0-7.7); Basophil# 0.06 X10^3/uL; Basophil% 0.7 % (0-1); Eosinophils% 3.3 % (0-5); Hematocrit 49.4 % (40-54); Hemoglobin 17.2 g/dL (13.0-16.5); Lymphocyte # 2.64 X10^3/ul (0.83-4.51); Lymphocyte % 28.8 % (19-41); Mean Corp Hgb Conc 34.8 g/dL (32-36); Mean Corpuscular Volume 94.8 fL (80-94); Mean Platelet Vol. 9.3 fl (6.2-12.0); Monocyte# 0.83 X10^3/uL; Monocyte% 9.1 % (0-10); NRBC Flagged by Analyzer 0 % (0-5); Neutrophil # 5.26 X10^3/uL (2.7-7.7); Neutrophil % 57.3 % (47-70); Platelet Count 289 K/mm3 (150-450); RBC Distribution Width SD 41.8 fl (35.1-43.9); Red Blood Count 5.21 M/mm3 (4.6-6.2); White Blood Count 9.2 K/mm3 (4.4-11.0)
[2023-03-14 08:30] LABS: Ferritin 1524 ng/mL (26-388)
[2023-03-14 08:31] LABS: Iron 133 ug/dL (65-175); Iron Binding Capacity,Total 331 ug/dL (250-450); PERCENT IRON SATURATION 40.2 % (15.0-55.0)
== END | disposition home or self-care (01) ==
PROVIDERS: Internal Medicine Hematology & Oncology; PCP Internal Medicine; Referring Provider Internal Medicine Gastroenterology; Visit Provider Internal Medicine Gastroenterology
DX: E83.119 Hemochromatosis, unspecified (principal); R79.89 Other specified abnormal findings of blood chemistry
CPT/HCPCS: 36415; 82728; 83540; 83550; 85025

== ENCOUNTER → 2023-04-04 | Outpatient (CLI) | payer MEDICARE, SELFPAY | END | disposition home or self-care (01) | LOC: SL 19:57 | PROVIDERS: PCP Internal Medicine; Referring Provider Internal Medicine; Visit Provider Internal Medicine | DX: G47.30 Sleep apnea, unspecified (principal) | CPT/HCPCS: 95810 ==

== ENCOUNTER → 2023-05-01 | Outpatient (CLI) | payer MEDICARE, SELFPAY ==
[2023-05-01] VITALS (9 sets, daily range): BP systolic 101–146; BP diastolic 59–87; PULSE 66–75; RESP 12–16; TEMP 36.4; O2SAT 93–98; BMI 26.5
--- NOTE | 2023-05-01 | LIV_PTH ---
PATIENT: IFTIKHAR FLEMING LOC: [place] U#:[id number] AGE/SX: 57/M ROOM: RE05/01/[address]: Dr. Guanaco Guerin DO : 1965 BED: DIS: 05/01/2023 SPEC #: [id number] RECD: 05/01/23 09:58 STATUS: CATARINA BERNARDINO #: [id number] JUDIT: 05/01/23 00:[address]: Guanaco Guerin DEPT: SURGICAL PATHOLOGY RECD BY: Philip Monique ENTERED: 05/01/23 09:58 SP TYPE: LIVER RES OTHR DR: Dr. Zeinab Dumont MD Tissues: Liver, NOS Procedures: PAS with Diastase (control) Trichrome (control) Special Stain Group II PAS Stain (control) Surgery Specimen Level V Retic (control) Iron Stain (control) HEADER OPERATION: Liver biopsy PRE-OP DIAGNOSIS: Hereditary hemochromatosis TISSUE SUBMITTED: Liver MICROSCOPIC DIAGNOSIS Liver, core biopsy: Liver parenchymal tissue with extensive macrovesicular steatosis and marked iron deposition (4+ in hepatocytes). See microscopic description and comment. SJ:ronny 05/02/2023 COMMENT The findings are consistent with clinical impression of hemochromatosis. Correlation with clinical, radiologic findings, laboratory findings and appropriate follow up are necessary. MICROSCOPIC DESCRIPTION Slides are reviewed. The specimen shows liver parenchymal tissue with preserved lobular architecture. Hepatocytes show mild reactive changes and extensive macrovesicular steatosis. Portal area shows mild chronic inflammation predominantly consists of lymphocytes and a few eosinophils. Mild interface inflammation is noted. Iron stain shows 4+ iron deposition in hepatocytes. Reticulin stain show preserved lobular architecture. Trichrome stain shows mild portal fibrosis and focal bridging fibrosis. Obvious cirrhosis is not seen. PAS stain with and without diastase do not show any abnormal accumulation of protein. All stains are performed with appropriate matched controls. GROSS DESCRIPTION Received in fixative is one container labeled with the patient's name and designated liver. The specimen consists of multiple elongated fragments of light barrow soft tissue that in aggregate measure 1.5 x 0.5 x <0.1 cm. The specimen is totally submitted in one cassette. / AM:ronny 05/01/2023 TC:5 CPT: 66204, 94956 x5
--- NOTE | 2023-05-01 07:43 | CT_ITS ---
PROCEDURE: CT DIRECTED CORE LIVER BIOPSY INDICATION: Male, 57 years old. Fatty infiltration of the liver. PHYSICIAN: CONSENT: Written informed consent was obtained having explained the risks, benefits and alternatives in detail with the patient who accepted the risks and agreed to proceed. Laboratory review and clinical assessment was performed. CONSCIOUS SEDATION PROTOCOL: The Drugs used were: 2 mg Versed, IV., and 50 mcg Fentanyl, IV. The sedation time was: 18 minutes. Conscious sedation was started at 8:42 AM and terminated at 9:00 AM. The conscious sedation protocol was independently monitored. RADIATION DOSAGE (If Supplied By Facility): CTDIvol = ( 17 ) mGy, DLP = ( 345.70 ) mGycm Individualized dose optimization techniques were used for this CT. TECHNIQUE: Using CT image guidance with image documentation, a suitable location in the left lobe of the liver was identified. Using an anterior approach, puncture of the liver was uneventful with an 18-gauge core needle system. Four, 18-gauge core samples were obtained, and submitted in formalin to the pathologist for further assessment. Followup CT scan revealed no distinct sequelae. CT/Biopsy/Inj or Needle Placement IMPRESSION: 1. CT directed core needle biopsy of the liver, using CT image guidance with image documentation as described. 2. Conscious Sedation protocol utilized with independent monitoring. Electronically Signed: Horacio Sánchez MD at 9:38 EDT ,
[2023-05-01 08:05] LABS: Absolute Lymphocyte Count 2.04 X10^3/uL (0.83-4.51); Absolute Neutrophil Count 5.2 X10^3/uL (2.0-7.7); Basophil# 0.04 X10^3/uL; Basophil% 0.5 % (0-1); Eosinophil# 0.13 X10^3/uL; Eosinophils% 1.6 % (0-5); Hematocrit 43.6 % (40-54); Lymphocyte # 2.04 X10^3/ul (0.83-4.51); Lymphocyte % 25.3 % (19-41); Mean Corp Hgb Conc 34.4 g/dL (32-36); Mean Corpuscular Hgb 32.8 pg (27.0-32.0); Mean Corpuscular Volume 95.4 fL (80-94); Mean Platelet Vol. 9.2 fl (6.2-12.0); Monocyte# 0.57 X10^3/uL; Monocyte% 7.1 % (0-10); NRBC Flagged by Analyzer 0 % (0-5); Neutrophil # 5.23 X10^3/uL (2.7-7.7); Neutrophil % 64.9 % (47-70); Platelet Count 261 K/mm3 (150-450); RBC Distribution Width CV 12.5 % (11.6-14.6); Red Blood Count 4.57 M/mm3 (4.6-6.2); White Blood Count 8.1 K/mm3 (4.4-11.0)
[2023-05-01 08:13] LABS: Prothrombin Time (Protime)PT. 12.9 SECONDS (11.7-14.9)
[2023-05-01 08:14] LABS: Partial Thromboplast Time 25.9 Seconds (24.1-36.2)
[2023-05-01] MEDS: Midazolam 2 MG/2 ML Syringe IV (08:42)
[2023-05-01] MEDS: fentaNYL 100 MCG/2 ML Ampul IV (08:43)
[2023-05-01] MEDS: Lidocaine 2% (20 ml mdv) 20 ML Vial INFILT (08:55)
== END | disposition home or self-care (01) ==
PROVIDERS: PCP Internal Medicine; Referring Provider Internal Medicine Gastroenterology; Visit Provider Internal Medicine Gastroenterology
DX: E83.110 Hereditary hemochromatosis (principal)
CPT/HCPCS: 47000; 36415; 77012; 85025; 85610; 85730; 88307; 88313; 99156; J7050

== ENCOUNTER 2023-05-22 05:23 | Day surgery (SDC) | payer MEDICARE, SELFPAY ==
[2023-05-22] VITALS (8 sets, daily range): BP systolic 79–152; BP diastolic 53–77; PULSE 50–57; RESP 16–18; TEMP 36.1–36.4; O2SAT 93–100; BMI 26.2
--- NOTE | 2023-05-22 | IMM_PTH ---
PATIENT: IFTIKHAR FLEMING LOC: EN U#:[id number] AGE/SX: 57/M ROOM: RE05/22/[address]: Dr. Guanaco Guerin DO : 1965 BED: DIS: 05/22/2023 SPEC #: [id number] RECD: 05/23/23 06:06 STATUS: CATARINA REQ #: [id number] JUDIT: 05/22/23 00:[address]: Guanaco Guerin DEPT: IMMUNOHISTOCHEMISTRY RECD BY: Angela Broderick ENTERED: 05/23/23 06:07 SP TYPE: IMMUNO OTHR DR: Dr. Zeinab Dumont MD Tissues: Gastric mucous membrane Procedures: H Pylori (initial) PHYSICIAN & INSTITUTION [facility] [id number] SPECIMEN INFORMATION: Tissue Source: Gastric body Clinical Info: History of IBS, elevated LFT's Specimen Number: [id number] CPT code: 24282 METHODOLOGY: Deparaffinized sections of prefer/formalin-fixed tissue or PAP/DQ stained slides are incubated with monoclonal/polyclonal antibodies/oligonucleotide probes. Localization is made via biotin free immunoperoxidase method. Appropriate controls are performed and reacted as expected. Results on target cell population are indicated in the following table: RESULTS: ANTIBODY / CLONE RESULT H Pylori (polyclonal) negative These tests were developed and their performance characteristics determined by [facility]. They may not have been cleared or approved by the U.S. Food and Drug Administration. The FDA has determined that such clearance or approval is not necessary. The above immunohistochemical/dualISH markers are ordered and reviewed by the Pathologist. INTERPRETATION: Gastric body, biopsy: Negative for Helicobacter pylori organisms. SJ:melissa 05/23/23
[2023-05-22] MEDS: Lactated Ringers 1,000 ML 15 ML IV (06:07)
--- NOTE | 2023-05-22 06:30 | EGD_PTH ---
PATIENT: IFTIKHAR FLEMING LOC: EN U#:[id number] AGE/SX: 57/M ROOM: RE05/22/[address]: Dr. Guanaco Guerin DO : 1965 BED: DIS: 05/22/2023 SPEC #: [id number] RECD: 05/22/23 08:30 STATUS: CATARINA REPerez #: [id number] JUDIT: 05/22/23 06:[address]: Guanaco Guerin DEPT: SURGICAL PATHOLOGY RECD BY: Lashay Vences ENTERED: 05/22/23 09:29 SP TYPE: EGD BIOPSY OT DR: Dr. Zeinab Dumont MD Tissues: A - Gastric mucous membrane B - Gastric mucous membrane C - Duodenum, NOS D - Esophagus, NOS E - Ileum, NOS F - COLON BIOPSY G - Sigmoid colon biopsy Procedures: Special Stain Group II Surgery Specimen Level IV Alcian Blue/PAS (control) HEADER OPERATION: Colonoscopy, EGD PRE-OP DIAGNOSIS: History of IBS, elevated LFT TISSUE SUBMITTED: A. Gastric body, B. gastric cardia, C. Duodenum, D. Distal esophagus, E. Terminal ileum, F. Random colonic, G. Sigmoid MICROSCOPIC DIAGNOSIS A. Gastric body, Biopsy: Fragments of gastric mucosa with focal ulceration, acute and chronic inflammation. See comment. B. gastric cardia, biopsy: Fragments of gastric mucosa with focal superficial erosion, acute and chronic inflammation. C. Duodenum, biopsy: A fragment of small intestinal mucosa, no pathologic diagnosis. D. Distal esophagus, biopsy: Fragments of gastroesophageal mucosa with chronic inflammation. Intestinal metaplasia (goblet cell metaplasia) not identified. See comment. E. Terminal ileum, biopsy: Fragments of small intestinal mucosa, no pathologic diagnosis. F. Random colonic, Fragments of colonic mucosa, no pathologic diagnosis. G. Sigmoid colon, biopsy: Tubular adenoma. SJ: 05/23/2023 COMMENT A. The results of immunohistochemistry for Helicobacter pylori will be reported separately ([id number]). D. Alcian blue/PAS stain with matched control is used in the evaluation of the specimen. MICROSCOPIC DESCRIPTION Slides are reviewed. GROSS DESCRIPTION A. Received is one container labeled with the patient name and designated gastric body. The specimen consists of multiple irregular fragments of light barrow soft tissue that in aggregate measure 0.5 x 0.3 x 0.1 cm. The specimen is totally submitted in one cassette. B. Received is one container labeled with the patient name and designated gastric cardia. The specimen consists of multiple irregular fragments of light barrow soft tissue that in aggregate measure 0.6 x 0.5 x 0.1 cm. The specimen is totally submitted in one cassette. C. Received is one container labeled with the patient name and designated duodenum. The specimen consists of two irregular fragments of light barrow soft tissue that in aggregate measure 0.5 x 0.5 x 0.1 cm. The specimen is totally submitted in one cassette. D. Received is one container labeled with the patient name and designated distal esophagus. The specimen consists of two irregular fragments of light barrow soft tissue that in aggregate measure 0.8 x 0.5 x 0.1 cm. The specimen is totally submitted in one cassette. E. Received is one container labeled with the patient name and designated terminal ileum. The specimen consists of two irregular fragments of light barrow soft tissue that in aggregate measure 0.8 x 0.6 x 0.1 cm. The specimen is totally submitted in one cassette. F. Received is one container labeled with the patient name and designated random colonic. The specimen consists of multiple irregular fragments of light barrow soft tissue that in aggregate measure 1.5 x 0.8 x 0.1 cm. The specimen is totally submitted in one cassette. G. Received is one container labeled with the patient name and designated sigmoid. The specimen consists of two irregular fragments of light barrow soft tissue that in aggregate measure 0.5 x 0.5 x 0.1 cm. The specimen is totally submitted in one cassette. / AM:cc 05/22/23 TC: 1 CPT:08142x 7, 10875
--- NOTE | 2023-05-22 06:32 | PCM.HP.BLA ---
History and Physical Date of Admission: 05/22/23 IFTIKHAR FLEMING, is a 57 M who presents to the office today for PCP OV 4.6.23 for wellness noting chronic issues of chronic back pain, HTN, neuropathy (neurology, Effexor), depression, hypertriglyceridemia, anxiety. ? Biochemical CBC, CMP, Vit D25, lipid, PSA, TSH without pertinent abnormality. ? AST H46-ALT H101- AP82, triglyceride H322, cholesterol H205 *BGI established 5.25.23 with lower abdominal pain, bloating, loose/watery stools which can get better and worse: severe symptoms present approximately every 3-4 months with chronic diarrhea on a daily basis minimally 4 times. Cymbalta attempted for anxiety/depression though felt it caused GI distress and was stopped. Probiotic attempted and felt it caused abdominal pain. Recalls a medication in the past that was taken for this that he had a reaction to. ROS Const Constitutional: No body ache, chills, excessive sweating, fatigue, fever(s), frequent falls, headache(s), snoring, weakness, weight change, sleep problems or change in appetite Eyes Eyes: No blurry vision, change in vision, eye pain or Light sensitivity ENT ENT: No abnormal hearing, ear or mastoid pain, tinnitus, nasal congestion, headache(s), neck pain or sore throat Resp Respiratory: No cough, shortness of breath, snoring or wheezing Cardio Cardiology: No chest pain at rest, chest pain with exertion, excessive sweating, shortness of breath, dyspnea on exertion, lightheadedness, orthopnea or palpitations Gastro GI: No abdominal pain, change in bowel habits, constipation, cramping, diarrhea, Vomiting blood/hematemesis, vomiting or other Genitourinary Male: No burning urination, painful urination, urinary incontinence or blood in urine Musc Musculoskeletal: Positive for back pain (left hip and leg chronic); No abnormal gait, joint pain, limited range of motion, neck pain, numbness or tingling Skin Skin: No dry skin, redness, lesions, itchy eyes, rash or wounds Breast Breast: No change in breast shape, breast lump, breast pain, breast skin changes, breast swelling, nipple discharge or other Neuro Neurology: No abnormal gait, abnormal hearing, abnormal speech, dizziness, weakness, frequent falls, headache(s), memory loss, numbness or tingling Psych Psychiatric: No anxiety, No change in appetite, No depression, No memory loss and No Thoughts of harming yourself/Others Endo Endocrine: No cold intolerance, excessive sweating, fatigue, flushing, heat intolerance, increased thirst/drinking, increased hunger or weight change Aller/Imm Allergy/Immunologic: No itchy eyes, seasonal allergy symptoms, hives or wheezing Regulo/Lymp Hematologic/Lymphatic: No easy bleeding, easy bruising, enlarged lymph nodes or other Exam Const General: cooperative, comfortable and no acute distress Orientation: alert and oriented x3 Limitations: mental status not altered HENWV Head: normal to inspection, normocephalic and atraumatic Ears: hearing grossly normal bilaterally Eyes General: appearance normal, both eyes and all related structures Neck Neck: normal visual inspection Resp Effort & Inspection: normal respiratory effort, able to speak in complete sentences, normal respiratory pattern and no cough Auscultation: Bilateral: Clear to Auscultation Cardio Rate: regular rate Rhythm: regular rhythm Heart Sounds: no gallops, no murmurs and no rubs Pulses: radial pulses present Musc Musculoskeletal: Yes decreased range of motion (Left shoulder due to pain); No joint redness or joint warmth Skin General: no rashes or lesions noted Trauma: no lacerations or abrasions Wounds: no wounds Neuro General: patient alert, patient oriented x3 and moves all extremities Cognition: normal cognition Speech: speech normal Extrem General: normal to inspection Other: Tenderness to palpation of the left medial deltoid. Psych Appearance: grossly normal Mental Status: mental status grossly normal Mood: congruent mood Affect: normal affect Speech and Movement: speech and movement normal Attitude: cooperative Quality Reporting Tobacco Screening ([facility]) Smoking Status: Never smoker Assessment and Plan Assessment and Plan (1) History of IBS: Status: Chronic Plan: He has a history of IBS with diarrhea. Differential diagnosis for him would be celiac disease with associated microscopic colitis, lymphocytic colitis, collagenous colitis, inflammatory bowel disease, exocrine pancreatic insufficiency. He should undergo colonoscopy with biopsies of the lower GI tract along with stool samples for fecal calprotectin, stool lactoferrin, stool culture and C. difficile (2) Elevated LFTs: Status: Chronic Plan: Differential diagnosis for his cholestatic hepatitis does include alcoholic hepatitis, less likely autoimmune hepatitis, celiac disease, transaminitis secondary to underlying muscle disease, viral hepatitis, IgG associated disease. He will undergo biochemical testing and we will get a FibroScan. I have examined the patient and the H&P has been reviewed. There are no clinical changes since date of exam.
--- NOTE | 2023-05-22 07:18 | OP.EGD_ITS ---
Patient Name: King Edmondson Procedure Date: 05/22/2023 6:24 AM Date of : 1965 Age: 57 Procedure: Upper GI endoscopy Indications: Epigastric abdominal pain, Heartburn Providers: Guanaco Guerin DO Referring MD: Zeinab Dumont Medicines: Monitored Anesthesia Care Patient Profile: This is a 57 year old male. Refer to note in patient chart for documentation of history and physical. Patient has symptoms of chronic epigastric abdominal pain, chronic dyspepsia and chronic heartburn. Complications: No immediate complications. Procedure: Pre-Anesthesia Assessment: - Prior to the procedure, a History and Physical was performed, and patient medications and allergies were reviewed. The patient is competent. The risks and benefits of the procedure and the sedation options and risks were discussed with the patient. All questions were answered and informed consent was obtained. Patient identification and proposed procedure were verified by the physician in the pre-procedure area. Mental Status Examination: alert and oriented. Airway Examination: normal oropharyngeal airway and neck mobility. Respiratory Examination: clear to auscultation. CV Examination: normal. Prophylactic Antibiotics: The patient does not require prophylactic antibiotics. Prior Anticoagulants: The patient has taken no anticoagulant or antiplatelet agents. ASA Grade Assessment: II - A patient with mild systemic disease. After reviewing the risks and benefits, the patient was deemed in satisfactory condition to undergo the procedure. The anesthesia plan was to use monitored anesthesia care (MAC). Immediately prior to administration of medications, the patient was re-assessed for adequacy to receive sedatives. The heart rate, respiratory rate, oxygen saturations, blood pressure, adequacy of pulmonary ventilation, and response to care were monitored throughout the procedure. The physical status of the patient was re-assessed after the procedure. After obtaining informed consent, the endoscope was passed under direct vision. Throughout the procedure, the patient's blood pressure, pulse, and oxygen saturations were monitored continuously. The Colonoscope was introduced through the mouth, and advanced to the second part of duodenum. The upper GI endoscopy was accomplished without difficulty. The patient tolerated the procedure well. Scope In: 6:42:05 AM Scope Out: 6:48:20 AM Total Procedure Duration Time 0 hours 6 minutes 15 seconds Findings: There were esophageal mucosal changes suspicious for short-segment Holcomb's esophagus present in the lower third of the esophagus. The maximum longitudinal extent of these mucosal changes was 3 cm in length. Mucosa was biopsied with a cold forceps for histology in a targeted manner at intervals of 1 cm in the lower third of the esophagus. One specimen bottle was sent to pathology. Verification of patient identification for the specimen was done. Estimated blood loss was minimal. Few non-bleeding linear gastric ulcers with no stigmata of bleeding were found in the cardia and in the gastric body. The largest lesion was 6 mm in largest dimension. Biopsies were taken with a cold forceps for histology. Verification of patient identification for the specimen was done. Estimated blood loss was minimal. No gross lesions were noted in the second portion of the duodenum. Biopsies were taken with a cold forceps for histology. Verification of patient identification for the specimen was done. Estimated blood loss was minimal. 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 Biopsied. - Non-bleeding gastric ulcers with no stigmata of bleeding. Biopsied. - No gross lesions in the second portion of the duodenum. Biopsied. Recommendation: - Discharge patient to home. - Resume previous diet. - Continue present medications. - Await pathology results. - Repeat upper endoscopy to check healing. - Use Prilosec (omeprazole) 40 mg PO BID for 8 weeks. - Use sucralfate tablets 1 gram PO BID for 4 weeks. Procedure Code(s): --- Professional --- 67638, Esophagogastroduodenoscopy, flexible, transoral; with biopsy, single or multiple CPT copyright 2021 [employer]. All rights reserved. The codes documented in this report are preliminary and upon property field inspector review may be revised to meet current compliance requirements. Guanaco Guerin DO 05/22/2023 7:18:16 AM This report has been signed electronically. Number of Addenda: 0 Note Initiated On: 05/22/2023 6:24 AM
--- NOTE | 2023-05-22 07:19 | OP.CCLET_ITS ---
05/22/2023 Zeinab Dumont [facility] [address] [place] [address] Re : Upper GI endoscopy procedure for King Edmondson Dear Dr. Dumont This procedure was performed on Monday, May 22, 2023. My impressions and recommendations are as follows: Impressions : - Esophageal mucosal changes suspicious for short-segment Holcomb's esophagus. Biopsied. - Non-bleeding gastric ulcers with no stigmata of bleeding. Biopsied. - No gross lesions in the second portion of the duodenum. Biopsied. Recommendations : - Discharge patient to home. - Resume previous diet. - Continue present medications. - Await pathology results. - Repeat upper endoscopy to check healing. - Use Prilosec (omeprazole) 40 mg PO BID for 8 weeks. - Use sucralfate tablets 1 gram PO BID for 4 weeks. My findings are described in the full procedure note, which is enclosed. If I can be of further assistance, please feel free to contact me at . Sincerely, Guanaco Guerin, 05/22/2023 7:18:16 AM This report has been signed electronically.
--- NOTE | 2023-05-22 07:21 | OP.CCLET_ITS ---
05/22/2023 Zeinab Dumont [facility] [address] [place] [address] Re : Colonoscopy procedure for King Edmondson Dear Dr. Dumont This procedure was performed on Monday, May 22, 2023. My impressions and recommendations are as follows: Impressions : - Diverticulosis in the recto-sigmoid colon and in the sigmoid colon. - One 8 mm polyp in the sigmoid colon, removed with a cold snare. Resected and retrieved. - Congested mucosa in the sigmoid colon, in the descending colon, at the splenic flexure and in the ascending colon. Biopsied. - The examined portion of the ileum was normal. Biopsied. Recommendations : - Discharge patient to home. - Resume previous diet. - Continue present medications. - Await pathology results. - Repeat colonoscopy in 5 years for surveillance. - Return to GI office. My findings are described in the full procedure note, which is enclosed. If I can be of further assistance, please feel free to contact me at . Sincerely, Guanaco Guerin, 05/22/2023 7:21:04 AM This report has been signed electronically.
--- NOTE | 2023-05-22 07:21 | OP.COLON_ITS ---
Patient Name: King Edmondson Procedure Date: 05/22/2023 6:48 AM Date of : 1965 Age: 57 Procedure: Colonoscopy Indications: Clinically significant diarrhea of unexplained origin Providers: Guanaco Guerin DO Referring MD: Zeinab Dumont Medicines: Monitored Anesthesia Care Patient Profile: This is a 57 year old male. Refer to note in patient chart for documentation of history and physical. Patient has symptoms of chronic epigastric abdominal pain, chronic dyspepsia and chronic heartburn. Last Colonoscopy: date unknown. Unable to locate last colonoscopy report. Complications: No immediate complications. Procedure: Pre-Anesthesia Assessment: - Prior to the procedure, a History and Physical was performed, and patient medications and allergies were reviewed. The patient is competent. The risks and benefits of the procedure and the sedation options and risks were discussed with the patient. All questions were answered and informed consent was obtained. Patient identification and proposed procedure were verified by the physician in the pre-procedure area. Mental Status Examination: alert and oriented. Airway Examination: normal oropharyngeal airway and neck mobility. Respiratory Examination: clear to auscultation. CV Examination: normal. Prophylactic Antibiotics: The patient does not require prophylactic antibiotics. Prior Anticoagulants: The patient has taken no anticoagulant or antiplatelet agents. ASA Grade Assessment: II - A patient with mild systemic disease. After reviewing the risks and benefits, the patient was deemed in satisfactory condition to undergo the procedure. The anesthesia plan was to use monitored anesthesia care (MAC). Immediately prior to administration of medications, the patient was re-assessed for adequacy to receive sedatives. The heart rate, respiratory rate, oxygen saturations, blood pressure, adequacy of pulmonary ventilation, and response to care were monitored throughout the procedure. The physical status of the patient was re-assessed after the procedure. After I obtained informed consent, the scope was passed under direct vision. Throughout the procedure, the patient's blood pressure, pulse, and oxygen saturations were monitored continuously. The Colonoscope was introduced through the anus and advanced to the terminal ileum. The colonoscopy was performed without difficulty. The patient tolerated the procedure well. The quality of the bowel preparation was adequate. The terminal ileum, ileocecal valve, appendiceal orifice, and rectum were photographed. Scope In: 6:50:16 AM Scope Withdrawal Time 0 hours 14 minutes 46 seconds Scope Out: 7:08:25 AM Total Procedure Duration Time 0 hours 18 minutes 9 seconds Findings: The perianal and digital rectal examinations were normal. A few small-mouthed diverticula were found in the recto-sigmoid colon and sigmoid colon. An 8 mm polyp was found in the sigmoid colon. The polyp was sessile. The polyp was removed with a cold snare. Resection and retrieval were complete. Verification of patient identification for the specimen was done. Estimated blood loss was minimal. An area of mildly congested mucosa was found in the sigmoid colon, in the descending colon, at the splenic flexure and in the ascending colon. Biopsies were taken with a cold forceps for histology. Verification of patient identification for the specimen was done. Estimated blood loss was minimal. The terminal ileum appeared normal. Biopsies were taken with a cold forceps for histology. Verification of patient identification for the specimen was done. Estimated blood loss was minimal. Impression: - Diverticulosis in the recto-sigmoid colon and in the sigmoid colon. - One 8 mm polyp in the sigmoid colon, removed with a cold snare. Resected and retrieved. - Congested mucosa in the sigmoid colon, in the descending colon, at the splenic flexure and in the ascending colon. Biopsied. - The examined portion of the ileum was normal. Biopsied. Recommendation: - Discharge patient to home. - Resume previous diet. - Continue present medications. - Await pathology results. - Repeat colonoscopy in 5 years for surveillance. - Return to GI office. Procedure Code(s): --- Professional --- 54588, Colonoscopy, flexible; with removal of tumor(s), polyp(s), or other lesion(s) by snare technique 42232, 59, Colonoscopy, flexible; with biopsy, single or multiple CPT copyright 2021 [employer]. All rights reserved. The codes documented in this report are preliminary and upon professional fee coder review may be revised to meet current compliance requirements. Guanaco Guerin DO 05/22/2023 7:21:04 AM This report has been signed electronically. Number of Addenda: 0 Note Initiated On: 05/22/2023 6:48 AM
== END 2023-05-22 08:03 | disposition home or self-care (01) ==
LOC: EN 05:29 → AC 05:59
PROVIDERS: PCP Internal Medicine; Referring Provider Internal Medicine; Visit Provider Internal Medicine Gastroenterology
PROC: 0DJD8ZZ Inspection of Lower Intestinal Tract, Via Natural or Artificial Opening Endoscopic (ICD-10-PCS; CPT 45378; principal; 2023-05-22 06:25)
DX: K25.3 Acute gastric ulcer without hemorrhage or perforation (principal); D12.5 Benign neoplasm of sigmoid colon; K57.30 Diverticulosis of large intestine without perforation or abscess without bleeding; G89.29 Other chronic pain; M54.9 Dorsalgia, unspecified; I10 Essential (primary) hypertension; K21.9 Gastro-esophageal reflux disease without esophagitis; K76.0 Fatty (change of) liver, not elsewhere classified; K63.89 Other specified diseases of intestine; Z79.899 Other long term (current) drug therapy; Z87.891 Personal history of nicotine dependence
CPT/HCPCS: 45385; 45380; 43239; 88305; 88313; 88342; J2405

== ENCOUNTER → 2023-05-23 | Outpatient (CLI) | payer MEDICARE, SELFPAY ==
--- NOTE | 2023-05-23 11:02 | ECHOD_ITS ---
Reason For Study: DYSPNEA Procedure This was a 2D Doppler, Color Flow transthoracic echocardiogram. Exam performed in department. Left Ventricle Normal size and thickness. The left ventricular ejection fraction is 65 %. Normal diastology for age. Right Ventricle Normal right ventricle. Atria The left and right atria are normal. Bubble contrast study is negative for PFO/ASD. Mitral Valve Trivial mitral valve insufficiency. Tricuspid Valve Trivial tricuspid valve insufficiency. Normal pulmonary artery pressure. Aortic Valve Trisinus/trileaflet aortic valve. Trivial aortic valve insufficiency. Pulmonic Valve The pulmonic valve is not well visualized. Great Vessels Normal sized aortic root. Pericardium/Pleural No pericardial effusion. Medication Performed a rapid injection of agitated mix of 9 cc saline and 1cc air to assess for atrial septal defect. MMode/2D Measurements & Calculations LVIDd: 4.9 cm IVSd: 0.80 cm Ao root diam: 3.3 cm LVIDs: 3.4 cm LVPWd: 0.92 cm RVDd: 3.6 cm FS: 31.0 % LAV(MOD-bp): 39.2 ml EDV(MOD-sp4): 112.5 ml EDV(MOD-sp2): 130.1 ml LAV(MOD-bp) Indexed: 19.4 ml/m2 ESV(MOD-sp4): 48.3 ml ESV(MOD-sp2): 39.9 ml LAV(MOD-sp2): 42.1 ml EF(MOD-sp4): 57.1 % EF(MOD-sp2): 69.3 % LAV(MOD-sp4): 35.8 ml SV(MOD-sp4): 64.3 ml SV(MOD-sp2): 90.1 ml LA A4 area: 14.3 cm2 LA dimension(2D): 4.0 cm RA A4 area: 10.4 cm2 Time Measurements MV dec time: 0.22 sec Doppler Measurements & Calculations MV E max tripp: 61.6 cm/sec Lat Peak E' Tripp: 10.6 cm/sec Med Peak E' Tripp: 8.2 cm/sec MV A max tripp: 60.2 cm/sec E/E' lat: 5.8 E/E' med: 7.5 MV E/A: 1.0 Ao V2 max: 109.7 cm/sec LV V1 max: 95.4 cm/sec MV dec slope: 274.7 cm/sec2 Ao max P.8 mmHg LV V1 max P.6 mmHg Ao V2 mean: 76.7 cm/sec LV V1 mean P.8 mmHg Ao mean P.7 mmHg LV V1 mean: 60.6 cm/sec Ao V2 VTI: 25.3 cm LV V1 VTI: 20.8 cm AV (velocity ratio): 0.82 PA V2 max: 115.9 cm/sec TR max tripp: 215.6 cm/sec PA V2 mean: 74.0 cm/sec TR max P.6 mmHg ECHO/Echo Complete Interpretation Summary The left ventricular ejection fraction is 65 %. Ordering Physician: Blake Goins Referring Physician: Zeinab Dumont Performed By: Brittany [place], TAL, RVT
== END | disposition home or self-care (01) ==
LOC: CVS 11:01
PROVIDERS: PCP Internal Medicine; Referring Provider Internal Medicine Cardiovascular Disease; Visit Provider Internal Medicine Cardiovascular Disease
DX: R06.00 Dyspnea, unspecified (principal); R07.9 Chest pain, unspecified; R53.83 Other fatigue; I10 Essential (primary) hypertension
CPT/HCPCS: 93306; A4216

== ENCOUNTER → 2023-06-06 | Outpatient (CLI) | payer MEDICARE, SELFPAY ==
--- NOTE | 2023-06-06 13:48 | STE_ITS ---
Reason For Study: Chest Pain Stress Results Protocol: Stress Echocardiogram-Noah Protocol Maximum Predicted HR: 164 bpm Target HR: 139 bpm % Maximum Predicted HR: 84 % DurationHeart Rate Stage (mm:ss) (bpm) BP Comment Baseline 61 154/86 Patient denies chest pain Stage 1 3:00 93 174/88 Patient denies chest pain Stage 2 3:00 106 186/88 Patient denies chest pain Stage 3 3:00 121 202/92 Leg fatigue and shortness of breath. Patient denies chest pain. Stage 4 1:30 137 230/106Increased fatigue, and shortness of breath. Denies chest pain Recovery 76 154/88 Patient denies chest pain Stress Duration: 10:30 mm:ss Maximum Stress HR: 137 bpm Baseline Echocardiogram Findings Stress Echo Wall motion Data Resting WM Intermediate WM Stress WM Resting Wall Motion Wall Motion Stress No regional wall motion All segments Hyperkinetic. abnormalities noted. ECHO/Stress Test Echo w/o Contrast Interpretation Summary 1. 84% of maximal predicted heart rate achieved. 2. Baseline ECG normal sinus rhythm. No ischemic changes with exercise or in re covery. 3. Normal augmentation of all LV wall segments postexercise. No evidence of isc hemia on echo images. Ordering Physician: Blake Gonis Referring Physician: Blake Goins Performed By: Cristóbal Hess RCS
== END | disposition home or self-care (01) ==
LOC: CVS 13:46
PROVIDERS: PCP Internal Medicine; Referring Provider Internal Medicine Cardiovascular Disease; Visit Provider Internal Medicine Cardiovascular Disease
DX: R07.9 Chest pain, unspecified (principal); R06.00 Dyspnea, unspecified; R53.83 Other fatigue; I10 Essential (primary) hypertension
CPT/HCPCS: 93017; 93350

== ENCOUNTER → 2023-07-02 | Outpatient (CLI) | payer MEDICARE, SELFPAY ==
[2023-07-08 14:08] LABS: Pancreatic Elastase, Fecal > 500 (>200)
== END | disposition home or self-care (01) ==
LOC: LAB 09:56
PROVIDERS: PCP Internal Medicine; Referring Provider Internal Medicine Gastroenterology; Visit Provider Internal Medicine Gastroenterology
DX: R19.7 Diarrhea, unspecified (principal); K58.9 Irritable bowel syndrome, unspecified
CPT/HCPCS: 82653; 82705; 83993; 87177; 87209; 87329; 87493; 87506

== ENCOUNTER → 2023-08-13 | Outpatient (CLI) | payer MEDICARE, SELFPAY | END | disposition home or self-care (01) | LOC: SL 11:38 | PROVIDERS: PCP Internal Medicine; Referring Provider Internal Medicine Critical Care Medicine; Visit Provider Internal Medicine Critical Care Medicine | DX: G47.33 Obstructive sleep apnea (adult) (pediatric) (principal) | CPT/HCPCS: 98960; G0463 ==

== ENCOUNTER → 2023-09-09 | Outpatient (CLI) | payer MEDICARE, SELFPAY ==
[2023-09-09 09:58] LABS: Absolute Lymphocyte Count 1.87 X10^3/uL (0.83-4.51); Absolute Neutrophil Count 3.9 X10^3/uL (2.0-7.7); Basophil# 0.05 X10^3/uL; Basophil% 0.8 % (0-1); Eosinophil# 0.19 X10^3/uL; Eosinophils% 2.9 % (0-5); Hematocrit 48.1 % (40-54); Hemoglobin 16.1 g/dL (13.0-16.5); Lymphocyte # 1.87 X10^3/ul (0.83-4.51); Lymphocyte % 28.4 % (19-41); Mean Corp Hgb Conc 33.5 g/dL (32-36); Mean Corpuscular Hgb 31.8 pg (27.0-32.0); Mean Corpuscular Volume 95.1 fL (80-94); Mean Platelet Vol. 9.3 fl (6.2-12.0); Monocyte% 9.1 % (0-10); NRBC Flagged by Analyzer 0 % (0-5); Neutrophil # 3.86 X10^3/uL (2.7-7.7); Neutrophil % 58.5 % (47-70); Platelet Count 237 K/mm3 (150-450); RBC Distribution Width CV 12.1 % (11.6-14.6); RBC Distribution Width SD 42.6 fl (35.1-43.9); Red Blood Count 5.06 M/mm3 (4.6-6.2); White Blood Count 6.6 K/mm3 (4.4-11.0)
[2023-09-09 10:14] LABS: Vitamin D,25 Hydroxy 47.3 ng/mL
[2023-09-09 10:19] LABS: ALB/GLOB Ratio 1.2 RATIO (0.9-2.4); AST(SGOT) 26 U/L (15-37); Alanine Aminotransfer ALT/SGPT 59 U/L (16-61); Alkaline Phosphatase 78 U/L (45-117); Anion Gap 6 (5-15); BUN 20 mg/dL (7-18); Calcium,Total 9.2 mg/dL (8.5-10.1); Chloride 101 mmol/L (98-107); Cholesterol 204 mg/dL (200); Creatinine, Serum 0.91 mg/dL (0.70-1.30); EST Glomerular Filtration Rate 91 mL/min (>60); Est Glom Filt Rate - Afr Amer 110 mL/min (>60); Globulin 3.2 g/dL (2.2-4.2); Glucose 122 mg/dL (74-106); High Density Lipoprotein 38 mg/dL; Magnesium 2.1 mg/dL (1.6-2.6); Potassium 3.9 mmol/L (3.5-5.1); Protein, Total 7.2 g/dL (6.4-8.2); Sodium Level 135 mmol/L (136-145); Thyroid Stim Hormone (TSH) 1.47 uIU/mL (0.358-3.74); Triglycerides 174 mg/dL; Very Low Density Lipoprotein 35 mg/dL (5-40)
== END | disposition home or self-care (01) ==
LOC: MTLAB 07:20
PROVIDERS: PCP Internal Medicine; Referring Provider Internal Medicine; Visit Provider Internal Medicine
DX: G47.33 Obstructive sleep apnea (adult) (pediatric) (principal); R19.8 Other specified symptoms and signs involving the digestive system and abdomen; I10 Essential (primary) hypertension; E78.1 Pure hyperglyceridemia; E55.9 Vitamin D deficiency, unspecified
CPT/HCPCS: 36415; 80053; 80061; 82306; 83735; 84443; 85025

== ENCOUNTER → 2023-10-22 | Outpatient (CLI) | payer MEDICARE, SELFPAY ==
--- NOTE | 2023-10-22 07:50 | CT_ITS ---
STUDY: CT ABDOMEN AND PELVIS WITH CONTRAST REASON FOR EXAM: Male, 58 years old. Diarrhea, lower abdominal pain -- with oral and IV contrast. History of prior hernia repair. RADIATION DOSAGE (If Supplied By Facility): CTDIvol = ( 14.83 ) mGy, DLP = ( 992.29 ) mGycm TECHNIQUE: Transaxial images were obtained from the dome of the diaphragm to the symphysis pubis with oral contrast. Oral and amp; IV Readi-CAT and amp; 100mL Isovue-370 was administered. Sagittal and coronal images were reconstructed. Individualized dose optimization techniques were used for this CT. COMPARISON: None. FINDINGS: Mild degree of scarring at the right lung base. The visualized portions of the heart are within normal limits. There is decreased attenuation of the liver consistent with steatosis. There are multiple small layering gallstones along the dependent portion of the gallbladder lumen. Normal spleen. Normal pancreas. Normal bilateral adrenal glands. Normal right kidney. Normal left kidney. There is a small hiatal hernia. Normal small intestine. Normal colon. The appendix is visualized and appears normal. Normal abdominal aorta. Normal inferior vena cava. Normal retroperitoneum. Multiple small lymph nodes are seen in the root of the mesentery. Normal urinary bladder. There is enlargement of the prostate gland. This causes indentation of the bladder base. Central prostatic calcification. Evidence of prior bilateral inguinal hernia repair. This space narrowing at the L5-S1 level. CT/Abdomen/Pelvis WITH Contrast IMPRESSION: Multiple small layering gallstones. Diffuse fatty infiltration of the liver. Multiple small lymph nodes are seen in the root of the mesentery. This is a nonspecific finding. Evidence of prior bilateral inguinal hernia repair. Prostatic enlargement with indentation of the bladder base and central prostatic calcification. Electronically Signed: Horacio Sánchez MD at 13:52 EST ,
--- OUTSIDE RECORDS SUMMARY | 2023-10-22 08:06 | XMS RPT_ITS | CCD ---
Author Name Unknown Address [id number] [place] [address] Organization [facility] Care Team Providers Care Educational Assistant Name Role Phone PROVIDER, UNKNOWN Attending Unavailable PROVIDER, UNKNOWN Admitting Unavailable Miguel Angel SNOWDEN, Anastasiia Unavailable [phone] Anastasiia Michelle MD Unavailable Anastasiia Michelle MD Unavailable Unavailable Primary Care Provider UnavailMary Su MD Primary Care Provider ROQUEJOSE Attending Unavailable SELF, SELF Referring Unavailable ROQUE, JOSE K Attending Unavailable ROQUE, JOSE K Referring Unavailable ROQUE, JOSE K Referring Unavailable ROQUE, JOSE K Attending Unavailable MARY DUMONT Referring Unavailable ROQUE, JOSE K Attending Unavailable ROQUE, JOSE K Referring Unavailable ROQUE, JOSE K Attending Unavailable ROQUE, JOSE K Attending Unavailable MARY DUMONT Primary Care Unavailable SELF, SELF Referring Unavailable ROQUE, JOSE K Referring Unavailable ROQUE, JOSE K Attending Unavailable Allergies Allergy Classification Reported Allergen(s) Allergy Type Date of Onset Reaction(s) Facility (6 sources) VIANNEY REYES; Translations: [VIANNEY REYES] Propensity to adverse reactions to drug (disorder) [facility] ([facility] DULoxetine Drug Allergy 3 [facility] Medications Current Medications Medication Drug Class(es) Dates Sig (Normalized) Sig (Original) citalopram 20 mg oral tablet (7 sources) Serotonin Reuptake Inhibitor Start: 09-30-2017 Citalopram 20 MG tablet fenofibrate 54 mg oral tablet (12 sources) Peroxisome Proliferator Receptor alpha Agonist Start: 09-01-2019 take 1 tablet by mouth twice daily fenofibrate (TRICOR) 54 MG tablet Take 54 mg by mouth 2 times daily. 0 09/01/2019 Active Completed/Discontinued Medications Medication Drug Class(es) Dates Sig (Normalized) Sig (Original) gadoterate Meglumine (DOTAREM) 5 MMOL/10ML injection 3-60 mL (1 source) Start: 05-30-2023 End: 05-30-2023 gadoterate Meglumine (DOTAREM) 5 MMOL/10ML injection 3-60 mL 20 ml sodium chloride 9 mg/ml injection (1 source) Start: 05-30-2023 End: 05-30-2023 Sodium chloride (PF) 0.9 % injection 1-100 mL Problems Active Problems Problem Classification Problem Date Documented Da te Episodic/Chronic Anxiety disorders (5 sources) Generalized anxiety disorder; Translations: [Generalized anxiety disorder] Onset: 10-06-2019 10-06-2019 Chronic Disorders of lipid metabolism (5 sources) Hyperlipidemia; Translations: [Hyperlipidemia, unspecified] Onset: 10-06-2019 10-06-2019 Chronic Disorders usually diagnosed in infancy, childhood, or adolescence (5 sources) Attention deficit hyperactivity disorder, predominantly inattentive type; Translations: [Other specified behavioral and emotional disorders with onset usually occurring in childhood and adolescence] Onset: 08-18-2007 10-06-2019 Chronic Essential hypertension (5 sources) Essential hypertension; Translations: [Essential (primary) hypertension] Onset: 08-18-2007 10-06-2019 Chronic Mood disorders (5 sources) Depressive disorder; Translations: [Depression] Onset: 12-19-2009 10-06-2019 Chronic Other gastrointestinal disorders (5 sources) Irritable bowel syndrome; Translations: [Irritable bowel syndrome without diarrhea] Onset: 10-04-2010 10-06-2019 Chronic Other inflammatory condition of skin (5 sources) Psoriasis; Translations: [Other psoriasis] Onset: 04-23-2006 10-06-2019 Chronic Other male genital disorders (5 sources) Induratio penis plastica; Translations: [Induration penis plastica] Onset: 03-02-2013 10-06-2019 Chronic Other nervous system disorders (2 sources) Spinal cord disease; Translations: [Disease of spinal cord, unspecified] 05-08-2023 Chronic Other nervous system disorders (3 sources) Cervical myelopathy; Translations: [Disease of spinal cord, unspecified] 06-11-2023 Chronic Other nervous system disorders (2 sources) Disease of spinal cord, unspecified; Translations: [Disease of spinal cord, unspecified] Onset: 10-02-2023 Chronic Other nervous system disorders (2 sources) Polyneuropathy, unspecified; Translations: [Polyneuropathy, unspecified] Onset: 04-08-2023 Chronic Other nervous system disorders (1 source) Numbness and tingling sensation of skin; Translations: [Anesthesia of skin] 06-12-2023 Episodic Spondylosis; intervertebral disc disorders; other back problems (12 sources) Degeneration of lumbar intervertebral disc; Translations: [Other intervertebral disc degeneration, lumbar region] Onset: 06-12-2023 05-07-2023 Chronic Spondylosis; intervertebral disc disorders; other back problems (15 sources) Spinal stenosis of lumbar region; Translations: [Spinal stenosis, lumbar region with neurogenic claudication] Onset: 04-08-2023 05-08-2023 Episodic Past or Other Problems Problem Classification Problem Date Documented Da te Episodic/Chronic Abdominal hernia (5 sources) Right inguinal hernia ; Translations: [Unilateral inguinal hernia, without obstruction or gangrene, not specified as recurrent] Onset: 03-21-2012 10-06-2019 Episodic Cardiac dysrhythmias (5 sources) Palpitations; Translations: [Palpitations] Onset: 12-27-2009 10-06-2019 Episodic Nonspecific chest pain (5 sources) Atypical chest pain; Translations: [Other chest pain] Onset: 11-21-2010 10-06-2019 Episodic Other connective tissue disease (5 sources) Pain in limb; Translations: [Pain in unspecified limb] Onset: 10-04-2008 10-06-2019 Episodic Other connective tissue disease (5 sources) Lateral epicondylitis; Translations: [Lateral epicondylitis, unspecified elbow] Onset: 04-10-2010 10-06-2019 Episodic Other fractures (5 sources) Closed fracture of five ribs; Translations: [Multiple fractures of ribs, unspecified side, initial encounter for closed fracture] Onset: 09-16-2008 10-06-2019 Episodic Other liver diseases (5 sources) Elevated liver enzymes level; Translations: [Abnormal levels of other serum enzymes] Onset: 09-20-2011 10-06-2019 Episodic Other nervous system disorders (2 sources) Anesthesia of skin; Translations: [Anesthesia of skin] Onset: 06-12-2023 Episodic Other nervous system disorders (2 sources) Paresthesia of skin; Translations: [Paresthesia of skin] Onset: 06-12-2023 Episodic Other skin disorders (5 sources) Skin tag; Translations: [Other hypertrophic disorders of the skin] Onset: 12-19-2009 10-06-2019 Episodic Sprains and strains (10 sources) Strain of rotator cuff of shoulder; Translations: [Strain of muscle(s) and tendon(s) of the rotator cuff of unspecified shoulder, initial encounter] Onset: 01-02-2010 10-06-2019 Episodic Results Test Name Value Interpretation Reference Range Facil ity Vital Signs Date Time Vital Sign Value Performing Clinician Faci lity 10-02-2023 10:53-0500 Body height 177.8 cm Jose JAFFE Work Phone: [facility] 10-02-2023 10:53-0500 Body temperature 96.69 [degF] Jose JAFFE Work Phone: [facility] 10-02-2023 10:53-0500 Heart rate 69 /min Jose JAFFE Work Phone: [facility] 10-02-2023 10:53-0500 SaO2% (BldA) [Mass fraction] 97 % Jose JAFFE Work Phone: [facility] 05-30-2023 08:41-0400 Body height 177.8 cm Jose JAFFE Work Phone: [facility] 05-30-2023 08:41-0400 Diastolic blood pressure 77 mm[Hg] Jose JAFFE Work Phone: [facility] 05-30-2023 08:41-0400 Heart rate 58 /min Jose JAFFE Work Phone: [facility] 05-30-2023 08:41-0400 Systolic blood pressure 167 mm[Hg] Jose JAFFE Work Phone: [facility] Encounters Encounter Date Encounter Type Care Provider Facility Start: 10-02-2023 ambulatory JOSE ROQUE Facility: [facility] Start: 10-02-2023 End: 10-02-2023 Office outpatient visit 15 minutes Jose JAFFE Work Phone: [facility] Procedures Date Procedure Procedure Detail Performing Clinician Start: 06-12-2023 Radex spine cervical 4 or 5 views Jose JAFFE Work Phone: Start: 05-08-2023 Radex spine lumbosac ral minimum 4 views Jose JAFFE Work Phone: Plan of Treatment Date Care Activity Detail Author Start: 05-28-2026 Tetanus vaccination [facility] Start: 03-23-2025 Lipid panel Cholesterol [facility] Start: 06-12-2023 End: 06-12-2023 Patient encounter procedure 06/12/2023 1:00 PM EDT Office Visit [facility] [place] [address] [place] [address] Jose Roque MBBS [address] [facility] [address] [place] [address] [facility] [place] Start: 05-31-2023 Influenza vaccination INFLUENZA VACCINE (#1) [facility] Start: 05-30-2023 End: 05-30-2023 Patient encounter procedure [facility] [place] Start: 05-08-2023 End: 05-08-2024 MR Cervical spine WO contrast MRI SPINE CERVICAL WITHOUT CONTRAST Imaging Routine Myelopathy Expected: 05/08/2023, Expires: 05/08/2024 [facility] Immunizations Immunization Date Immunization Notes Care Provider Fa cility 07-28-2021 Seasonal, quadrivale nt, recombinant, injectable influenza vaccine, preservative free Anastasiia Michelle MD Work Phone: [facility] 07-28-2021 influenza virus vacc ine, unspecified formulation Anastasiia Michelle MD Work Phone: [facility] 06-25-2016 influenza, seasonal, injectable Anastasiia Michelle MD Work Phone: [facility] 05-28-2016 tetanus toxoid, redu elen diphtheria toxoid, and acellular pertussis vaccine, adsorbed Anastasiia Michelle MD Work Phone: [facility] 07-29-2015 influenza, seasonal, injectable [facility]asiia Michelle MD [facility] 09-27-2014 influenza, seasonal, injectable Anastasiia Michelle MD Work Phone: [facility] 06-18-2013 influenza, seasonal, injectable Anastasiia Michelle MD Work Phone: [facility] 09-20-2011 influenza virus vacc ine, unspecified formulation Anastasiia Michelle MD Work Phone: [facility] 08-18-2007 influenza virus vacc ine, unspecified formulation Anastasiia Michelle MD Work Phone: [facility] Payers Date Payer Category Payer Medicare [id number] 2022 Medicare [id number] 2019 Medicare [id number] 2019 Medicare [id number] 1966 Unknown [id number] 2. [id number] 1966 Unknown [id number] 2. [id number] 1966 Unknown [id number] 2. [id number] 1966 Unknown [id number] 2. [id number] 1966 Unknown [id number] 2.16 [id number] 1966 Unknown [id number] 2.16 [id number] 1966 Unknown [id number] 2.16 [id number] 1966 Unknown [id number] 2.16. [id number] 1966 Unknown [id number] 2.16. [id number] 1966 Unknown [id number] 2.16. [id number] 1966 Unknown [id number] 2.16. [id number] 1966 Unknown [id number] 2.16. [id number] Social History Date Type Detail Facility Start: 10-06-2019 Tobacco smoking status [facility] Start: 10-06-2019 Tobacco use and exposure Smokeless tobacco non-user [facility] Start: 1965 Sex Assigned At Male [facility] History of tobacco use Current smoker [facility] Start: 05-08-2023 Tobacco smoking status [facility] Tobacco smoking consumption unknown [facility] Start: 1965 Sex Assigned At Not on file [facility] Start: 02-08-2021 Gender identity Identifies as male gender (finding) [facility] Sexual orientation Not on file [facility] Start: 02-08-2021 Sexual orientation Heterosexual (finding) [facility] History of Present illness Narrative 10-02-2023 LD Mendenhall - 10/02/2023 10:45 AM EST Note Date & Type Note Facility 10-02-2023 History of Present illness Narrative Follow-up Visit: Chief Complaint/HPI: Iftikhar Fleming is a 57 y.o. male who presents with follow-up to discuss his further treatment plan. He is symptoms of chronic low back pain with left lower extremity radiculopathy as well as symptoms of cervical stenosis and myelopathy, including gait imbalance as well as hand dexterity issues. Denies any significant change in his symptoms since the last visit. Denies any significant neck pain. He is here today to discuss his cervical spine surgery and want to proceed. Chart notes and referral notes reviewed. Chart review of systems was reviewed prior to the interview. Social History: Smoking No Physical Exam: No acute distress Psych: A+Ox3, Affect is appropriate Gait: broad based Tandem gait: positive Romberg sign: positive Peripheral Vascular: LE swelling none Cap refill < 2 seconds Skin: Previous incision well healed Spine: Patient s spine is well aligned without evidence of tenderness, masses, or muscle spasms. Muscle tone and bulk are normal. Range of motion of the cervical spine is diminished range of motion in flexion, extension, lateral bending and rotation. Range of motion of the lumbar spine is diminished range of motion in flexion, extension, lateral bending, and rotation. Dysraphism (neural tube defect) none, Prior surgical scars well healed Neuro: MOTOR: Delt C5 Bic C5,6 WE C6 Triceps C7 Graphite Pan Drier Tender C8 Intrinsics T1 Reference Right 5 5 5 5 5 5 5=Normal Left 5 5 5 5 5 5 3=against gravity SENSORY C5 C6 C7 C8 T1 Reference Right 2 2 2 2 2 2=Normal Left 2 2 2 2 2 1=Presend but decreased MOTOR: IP L1 Quad L3,4 TA L4 EHL L5 GS S1 Reference Right 5 5 5 5 5 5=Normal Left 5 5 5 5 5 3=against gravity SENSORY L2 L3 L4 L5 S1 Reference Right 2 2 2 2 2 2=Normal Left 2 2 2 2 2 1=Presend but decreased Reflexes Biceps BR Triceps Patella Achilles Reference Right 2 2 2 2 2 3=Increased, 0=Absent Left 2 2 2 3 2 1=Decreased decreased Spinal Cord Eval Ortiz Clonus Balance walking Straight Leg Raise Test Reference Right Neg Pres Unsteady Normal Normal=Absent Connor, Clonus Left Pos Pres Unsteady Pos Imaging Independent review MRI cerivcal spine (05/30/23): Demonstrates severe central canal stenosis at C5/6 and C6/7 with associated myelomalacia. MRI lumbar spine (05/30/23): Demonstrates severe central canal stenosis at L2/3 as well as diffuse spondylotic changes. Clinical impression: Patient is a 57 y.o. male who presents today with follow-up for - Chronic cervical myelopathy with severe stenosis and myelomalacia on MRI 2. Chronic lumbar stenosis with left lower extremity radiculopathy Plan: The natural history and course of the symptomatology of cervical stenosis and myelopathy was again discussed in detail with the patient. Diagnostics were reviewed with the patient and the results were discussed .I answered all questions regarding the mode of onset, pathophysiology, symptoms, imaging findings, treatment options (both non-operative and operative) regarding his diagnosis. He wants to proceed with surgical intervention as discussed in last visit. Surgical Consent/Risk Discussion: 1. The natural history of symptomatic cervical disc herniation, Cervical Stenosis and Myelopathy and associated arm pain as well neurological symptoms were discussed at length. The potential risks, benefits and complications of the various management options including continued conservative measures as well as surgical intervention were thoroughly discussed as well. Given the severe and unremitting nature of his symptoms, I discussed with Iftikhar Fleming that surgery is a reasonable option for him. I specifically discussed that the primary indication for surgical intervention is to decompress his cervical spine, protect his neural elements, and help alleviate his pain syndrome. No specific guarantees were given with regard to management of potential chronic axial neck pain issues. The specifics of a decompression and fusion procedure were discussed and all his questions were answered. The risks described included but were not limited to persistent pain, incomplete relief or worsening of symptoms, fusion or hardware failure, development of adjacent segment disease, need for repeat surgeries, failure to improve, swallowing and/or speech disturbance, infection, CSF leak, bleeding (varying from a small amount to extensive and life threatening), DVT, damage to nerve root and limb weakness including quadriparesis and/or quadriplegia, medical complications including the possibility of . he verbally agreed and consented with the plan formulated today. A written informed consent will be obtained once admitted, and after answering again all his questions for the procedure : Anterior cervical decompression and instrumented fusion (ACDF) C5-7. We did discuss that he may potentially need some form of surgical intervention for adjacent levels in future if they keep worsening 2. Surgery scheduling: Mr. Fleming will be scheduled for surgery. 3. Preop Screening: he will be referred to Anesthesia/OPAC 4. Additional Discussion/Instructions: Mr. Fleming will receive day of surgery instruction from clinic. Plan of care discussed. All questions answered. The patient verbalized understanding of the disease process and agreed to the treatment plan formulated for this visit. Patient Counseling: Again,I discussed with the patient about the spinal mechanics and the importance of staying as active as possible. We discussed about preferred and ideal BMI range as well as weight loss including diet and lifestyle modifications, and it's role in overall spine-related pain and health issues. We discussed that building a core muscle group and strengthening is crucial for sustained improvement. We discussed at length the signs and symptoms of myelopathy to include but not limited to: difficulty with dexterity, frequent falling, dropping objects, difficulty negotiating stairs, Urine or bowels control problems. Such findings indicate spinal cord compression and myelopathy and the downward stepwise fashion deterioration and patient was advised to follow up closely with us. I also recommended a home based exercise program Follow-up: 2 weeks after surgery with XOA no The total [id number]-[id number] time spent on this visit was at least greater than 20 minutes, with the majority (>50%) of the time spent in counseling, discussing pathology and management options, and coordination of care. Jose Roque MD documented in this encounter [facility] History of Present illness Narrative 06-12-2023 LD Mendenhall - 06/12/2023 1:00 PM Gonzalo Arciniega MD - 06/12/2023 1:00 PM EDT Note Date & Type Note Facility 06-12-2023 History of Present illness Narrative I have personally seen and examined Iftikhar Fleming and reviewed the relevant images. Following my extensive edits, I agree with the clinical history, physical examination, and management plan detailed in the Fellow's note. I have personally discussed the diagnosis and management with the patient. The total [id number]-ve-[id number] time spent on this visit was greater than 30 minutes, with the majority (>50%) of the time spent in counseling, discussing pathology and management options, and coordination of care. Jose Roque MD Follow-up Visit: Chief Complaint / Reason for Visit : Follow-up for cervical and lumbar MRIs HPI: Iftikhar Fleming is a right Hand Dominant 57 y.o. male who presents with follow-up of cervical and lumbar MRIs. He was last seen in clinic on 05/08/23 for chronic LLE radiculopathy following a surgery in [place] in 2016 where he was found to have UMN signs/symptoms. He states that he continues to have let leg pain and states that recently has been experiencing bilateral thigh pain with activity. He states that his gait and balance continue to be affected and he requires a cane for ambulation. He denies changes in his dexterity and bowel and bladder issues. He denies significant neck pain and arm pain. But does complain of hand dexterity issues including cramping and tiredness. Medications: Outpatient Medications Prior to Visit Medication Sig Dispense Refill Citalopram 20 MG tablet Fenofibrate Micronized (ANTARA) 130 MG Cap take 130 mg by mouth daily.. fluoxetine 10 MG Cap take 10 mg by mouth daily.. hydrochlorothiazide 25 MG Tab take 25 mg by mouth daily.. lisinopril 40 MG tablet Take 1 tablet by mouth daily. Metoprolol 50 MG tab regular release TAKE 1 TABLET BY MOUTH TWICE DAILY FOR HYPERTENSION. omeprazole [address] capsule Take 1 capsule by mouth daily. Sucralfate 1 g tablet No facility-administered medications prior to visit. Physical Exam: General: There were no vitals filed for this visit. No acute distress Psych: A+Ox3, Affect is appropriate Gait: broad based Tandem gait: positive Romberg sign: positive Peripheral Vascular: LE swelling none Cap refill < 2 seconds Skin: Previous incision well healed Spine: Patient s spine is well aligned without evidence of tenderness, masses, or muscle spasms. Muscle tone and bulk are normal. Range of motion of the cervical spine is diminished range of motion in flexion, extension, lateral bending and rotation. Range of motion of the lumbar spine is diminished range of motion in flexion, extension, lateral bending, and rotation. Dysraphism (neural tube defect) none, Prior surgical scars well healed Neuro: MOTOR: Delt C5 Bic C5,6 WE C6 Triceps C7 Graphite Pan Drier Tender C8 Intrinsics T1 Reference Right 5 5 5 5 5 5 5=Normal Left 5 5 5 5 5 5 3=against gravity SENSORY C5 C6 C7 C8 T1 Reference Right 2 2 2 2 2 2=Normal Left 2 2 2 2 2 1=Presend but decreased MOTOR: IP L1 Quad L3,4 TA L4 EHL L5 GS S1 Reference Right 5 5 5 5 5 5=Normal Left 5 5 5 5 5 3=against gravity SENSORY L2 L3 L4 L5 S1 Reference Right 2 2 2 2 2 2=Normal Left 2 2 2 2 2 1=Presend but decreased Reflexes Biceps BR Triceps Patella Achilles Reference Right 2 2 2 2 2 3=Increased, 0=Absent Left 2 2 2 3 2 1=Decreased decreased Spinal Cord Eval Ortiz Clonus Balance walking Straight Leg Raise Test Reference Right Neg Pres Unsteady Normal Normal=Absent Connor, Clonus Left Pos Pres Unsteady Pos Imaging Independent review MRI cerivcal spine (05/30/23): Demonstrates severe central canal stenosis at C5/6 and C6/7 with associated myelomalacia. MRI lumbar spine (05/30/23): Demonstrates severe central canal stenosis at L2/3 as well as diffuse spondylotic changes. Clinical impression: Patient is a 57 y.o. male who presents today with follow-up for - 1. Lumbar stenosis with LLE radiculopathy 2. Cervical myelopathy Plan: The natural history and course of the symptomatology of Cervical myelopathy was again discussed in detail with the patient. Diagnostics were reviewed with the patient and the results were discussed .I answered all questions regarding the mode of onset, pathophysiology, symptoms, imaging findings, treatment options (both non-operative and operative) regarding his diagnosis. - Recommended surgical intervention in form of ACDF C5-C7, along with risks, benefits and complications, given the progressive nature of cervical myelopathy as well as unreliable recovery of function even with surgery. We also discussed that he may need surgical intervention of lumbar spine, likely a multilevel decompression, in the future we do not improve significantly with nonsurgical management Patient understood diagnosis and recommendation and would like more time think about his treatment options. Plan of care discussed. All questions answered. The patient verbalized understanding of the disease process and agreed to the treatment plan formulated for this visit. The total ofex-cf-qide time spent on this visit was greater than 20 minutes, with the majority (>50%) of the time spent in counseling, discussing pathology and management options, and coordination of care. Patient Counseling: Again,I discussed with the patient about the spinal mechanics and the importance of staying as active as possible. We discussed about preferred and ideal BMI range as well as weight loss including diet and lifestyle modifications, and it's role in overall spine-related pain and health issues. We discussed that building a core muscle group and strengthening is crucial for sustained improvement. We discussed at length the signs and symptoms of myelopathy to include but not limited to: difficulty with dexterity, frequent falling, dropping objects, difficulty negotiating stairs, Urine or bowels control problems. Such findings indicate spinal cord compression and myelopathy and the downward stepwise fashion deterioration and patient was advised to follow up closely with us. I also recommended a home based exercise program. Follow-up: Patient will follow up as needed once he has made a decision regarding treatment The total time spent on this visit was greater than 30 minutes, with the majority of the time was on face to face interaction and at least >50% time was spent in counseling, discussing pathology and management options, and coordination of care. Harshad Arciniega MD Orthopaedic Spine Fellow documented in this encounter [facility] History of Present illness Narrative 05-08-2023 Vijay Brizuela MD - 05/08/2023 1:15 PM EDTLD [place] - 05/08/2023 1:15 PM EDT Note Date & Type Note Facility 05-08-2023 History of Present illness Narrative Referring Physician: Dr. Dumont Chief Complaint / Reason for Visit : left leg radiculopathy Occupation: retired HPI: Patient is a 57 y.o. male who presents with long-standing left leg greater than axial symptoms. He has a history of a left-sided diaz laminectomy in [place] in 2015 for left lower extremity radiculopathy without weakness according to the patient. He states that after surgery he did not do well. He had continued numbness and tingling of his left lower extremity going down his buttock into his dorsal foot. He also has developed fatigable weakness of the left thigh and left foot in dorsiflexion over the past 6 years. Never truly got better after the original surgery. He did see Dr. Maldonado back in 2017 in wounds tear according to the patient. Dr. Maldonado did discuss a fusion or repeat decompression surgery for the patient but they decided against this and went with a continued conservative management with physical therapy, no injections, nerve medications including gabapentin and Lyrica which she has been on. Patient has done physical therapy specifically aqua therapy approximately a year ago. Would like to know his surgical options for his left lower extremity radiculopathy and fatigability. Does describe symptoms of neurogenic claudication. He also describes issues with balance. States that he is unsteady on his feet and has had several falls. Denies any problems with buttoning his shirt. Does state that he has increased fatigability in his hands when doing repetitive motions. Denies any new bowel or bladder incontinence. Patient takes medications as per chart. Nonsmoker, history of familial hematochromatosis, sleep apnea, polyneuropathy of unknown cause (thought to be due to possible prediabetes or hematochromatosis) Chart notes and referral notes reviewed. Review of Systems: Chart review of systems was reviewed prior to the interview. A subset of that information is presented below. Constitutional: - Unexplained Weight Loss - No - Fever/chills - No Chest: - Chest Pain -No - Shortness of Breath -No - Abdominal Pain- No Musculoskeletal: -spine or extremity pain -yes GI/: - Bowel incontinence - No - Bladder incontinence No Past Medical History: Past Medical History: Diagnosis Date Anxiety Asthma Bipolar disorder (HCC) Depression HTN (hypertension) PTSD (post-traumatic stress disorder) Past Surgical History: Past Surgical History: Procedure Laterality Date LAMINECTOMY VERTEBRAL SEGMENT LUMBAR 02/2016 HERNIA REPAIR 2012 Social History: Smoking No, ETOH no Social History Occupational History Not on file Tobacco Use Smoking status: Not on file Smokeless tobacco: Not on file Substance and Sexual Activity Alcohol use: Not on file Drug use: Not on file Sexual activity: Not on file Family History: No family history on file. Medications: Outpatient Medications Prior to Visit Medication Sig Dispense Refill Citalopram 20 MG tablet Fenofibrate Micronized (ANTARA) 130 MG Cap take 130 mg by mouth daily.. fluoxetine 10 MG Cap take 10 mg by mouth daily.. hydrochlorothiazide 25 MG Tab take 25 mg by mouth daily.. lisinopril 40 MG tablet Take 1 tablet by mouth daily. Metoprolol 50 MG tab regular release TAKE 1 TABLET BY MOUTH TWICE DAILY FOR HYPERTENSION. omeprazole [address] capsule Take 1 capsule by mouth daily. No facility-administered medications prior to visit. Allergies: is allergic to cymbalta [duloxetine hcl]. Physical Exam: General: There were no vitals filed for this visit. No acute distress Psych: A+Ox3, Affect is appropriate Gait: Gait: broad based gait pattern Heel and toe walking is intact- slightly weak left heel walk but is able to do it. Patient states that if he is walking for long time of pill that he would hardly be able to lift his left foot. Tandem gait- positive Rhomberg sign: not tested Skin: Lesions on Skin - No Spine: No skin lesions, ulcers noted. normal spine posture noted. Tenderness to palpation in lumbar Spine- paraspinal more left sided. Spine Muscle tone and bulk are normal. Range of motion of the lumbar spine is full range with pain in flexion, extension, lateral bending, and rotation . Dysraphism (neural tube defect) - No, Prior surgical scars yes, midline and well-healed Neuro: MOTOR: IP L1 Quad L3,4 TA L4 EHL L5 GS S1 Reference Right 5 5 5 5 5 5=Normal Left 5 5 5 5+ 5 3=against gravity SENSORY L2 L3 L4 L5 S1 Reference Right 2 2 2 1 2 2=Normal Left 2 2 2 2 2 1=Presend but decreased Reflexes Biceps BR Triceps Patella Achilles Reference Right 3 3 3 3 3 3=Increased, 0=Absent Left 3 3 3 3 3 1=Decreased decreased Spinal Cord Eval Ortiz Clonus Balance walking Straight Leg Raise Test Reference Right Neg + decreased Normal Normal=Absent Connor, Clonus Left + + Normal Normal Imaging Independent review Plain xrays Lumbar Spine (05/08/23): Degenerative disc disease and facet arthropathy most severe at L5/S1 and L4/L5. No instability with flexion or extension. Possible laminectomy defect at inferior L4 on the left MRI Lumbar Spine (05/18/23): Status post partial laminectomy inferior left L4 and superior left L5 to access the L4/L5 disc space. He does have significant severe spinal stenosis and lateral recess stenosis at L2/3, L3/4, L4/5, and L5/S1. Clinical impression: Patient is a 57 y.o. male who presents with- 1.Lumbar stenosis and LLE radiculopathy (L5) after prior surgery 2.Symptoms of myelopathy Plan: The natural history and course of the symptomatology of Lumbar stenosis and myelopathy was discussed in detail with the patient. Diagnostics were reviewed with the patient and the results were discussed .I answered all questions regarding the mode of onset, pathophysiology, symptoms, imaging findings, treatment options (both non-operative and operative) regarding his diagnosis. - Recommend physical therapy again and that it has been about a year since he has completed this. This will help with strengthening his core and back.. - Recommend due to his old MRI being over a year old, we would recommend an updated lumbar MRI as we were considering surgery for his neurogenic claudication and left lower extremity radiculopathy. Due to his symptoms of myelopathy, we would recommend an MRI of his cervical spine without contrast since this is a diagnosis that could significantly alter bodily function. . Plan of care discussed. All questions answered. The patient verbalized understanding of the disease process and agreed to the treatment plan formulated for this visit. Patient Counseling: I also discussed with the patient about the spinal mechanics and the importance of staying as active as possible. We discussed about preferred and ideal BMI range as well as weight loss including diet and lifestyle modifications, and it's role in overall spine-related pain and health issues. We discussed that building a core muscle group and strengthening is crucial for sustained improvement. I also recommended a home based exercise program Follow-up: - 6 weeks after PT and MRIs , with XOA -cervical spine Vijay Brizuela MD Orthopaedic Surgery, PGY5 Pager #[phone] I have personally seen and examined Iftikhar Fleming and reviewed the relevant images. Following my extensive edits, I agree with the clinical history, physical examination, and management plan detailed in the resident's note. I have personally discussed the diagnosis and management with the patient. The total [id number] time spent on this visit was greater than 30 minutes, with the majority (>50%) of the time spent in counseling, discussing pathology and management options, and coordination of care. Jose Roque MD documented in this encounter [facility] Evaluation note Note Date & Type Note Facility documented in this encounter [facility] Evaluation note Note Date & Type Note Facility documented in this encounter [facility] Evaluation note Note Date & Type Note Facility documented in this encounter [facility] Evaluation note Note Date & Type Note Facility documented in this encounter [facility] Evaluation note Note Date & Type Note Facility documented in this encounter [facility] Evaluation note Note Date & Type Note Facility documented in this encounter [facility] Evaluation note Note Date & Type Note Facility documented in this encounter [facility] Summary Purpose Family History No Family History Records FoundNo Family History Records Found Advance Directives No Advanced Directives Records FoundNo Advanced Directives Records Found Reason for Referral Specialty Diagnoses / Procedures Referred By Contac t Referred To Contact Diagnoses Myelopathy Procedures MRI SPINE CERVICAL WITHOUT CONTRAST [place] [facility], CERV SPINE Jose Roque MBBS [address] [place] [address] Referral ID Status Reason Start Date Expiration Date V isits Requested Visits Authorized [id number] Auth Not Needed 05/08/2023 06/01/2024 1 1 Specialty Diagnoses / Procedures Referred By Contac t Referred To Contact Diagnoses Degenerative disc disease, lumbar Spinal stenosis of lumbar region with neurogenic claudication Procedures MRI SPINE LUMBAR WITH AND WITHOUT CONTRAST [place] [facility], LUMBAR SPINE COMBO Jose Roque MBBS [address] [place] [address] Referral ID Status Reason Start Date Expiration Date V isits Requested Visits Authorized [id number] Auth Not Needed 05/08/2023 06/01/2024 1 1 Specialty Diagnoses / Procedures Referred By Contact Referred To Contact Sports Medicine and Rehabilitation Diagnoses Degenerative disc disease, lumbar Spinal stenosis of lumbar region with neurogenic claudication Myelopathy Jose Roque MBBS [address] [place] [address] Referral ID Status Reason Start Date Expiration Date V isits Requested Visits Authorized [id number] New Request 05/08/2023 06/01/2024 1 1 Referral ID Status Reason Start Date Expiration Date Visits Re quested Visits Authorized [id number] Closed 05/08/2023 06/01/2024 1 1 Referral ID Status Reason Start Date Expiration Date Visits Re quested Visits Authorized [id number] Closed 05/08/2023 06/01/2024 1 1 Specialty Diagnoses / Procedures Referred By Contac t Referred To Contact PreOp Diagnoses Cervical myelopathy Osteoarthritis of cervical spine with myelopathy Spinal stenosis of cervical region Cervical disc disease Jose Roque MBBS [address] [place] [address] Referral ID Status Reason Start Date Expiration Date V isits Requested Visits Authorized [id number] New Request 10/02/2023 10/26/2024 1 1 Additional Source Comments (unrecognized sect ion and content) No Status Records FoundNo Status Records Found INFORMATION SOURCE (unrecogn ized section and content) DATE CREATED AUTHOR AUTHOR'S ORGANIZ ATION 10/06/2023 [facility] Care Teams (unrecognized sec tion and content) Educational Assistant Relationship Specialty Start Date End Date Anastasiia Michelle MD [address] [place] [address] Physician Rheumatology 07/05/20 Educational Assistant Relationship Specialty Start Date End Date Anastasiia Michelle MD [address] [place] [address] Physician Rheumatology 07/05/20 Educational Assistant Relationship Specialty Start Date End Date Mary Dumont MD [address] [place] [phone] PCP - General Pulmonary Disease 10/02/23 Reason for Visit (unrecogniz ed section and content) Specialty Diagnoses / Procedures Referred By Contac t Referred To Contact Orthopaedics Diagnoses Lumbar radiculopathy Polyneuropathy, unspecified Dorsopathy, unspecified Mary Dumont MD [address] [place] [address] [facility] [address] [place] [address] Referral ID Status Reason Start Date Expiration Date V isits Requested Visits Authorized [id number] Pending Review 04/08/2023 05/02/2024 1 1 Specialty Diagnoses / Procedures Referred By Contac t Referred To Contact Diagnoses Myelopathy Procedures MRI SPINE CERVICAL WITHOUT CONTRAST [place] [facility], CERV SPINE Jose Roque MBBS [address] [facility] [place] [address] Referral ID Status Reason Start Date Expiration Date Visits Re quested Visits Authorized [id number] Closed 05/08/2023 06/01/2024 1 1 Specialty Diagnoses / Procedures Referred By Ratna t Referred To Contact Diagnoses Degenerative disc disease, lumbar Spinal stenosis of lumbar region with neurogenic claudication Procedures MRI SPINE LUMBAR WITH AND WITHOUT CONTRAST [place] [facility], LUMBAR SPINE Jose Carpenter, LD [address] [facility] [address] [place] [address] Referral ID Status Reason Start Date Expiration Date Visits Re quested Visits Authorized [id number] Closed 05/08/2023 06/01/2024 1 1 Reason Comments MRI Results Reason Comments Follow-up MRI FOR RECORDS PERTAINING TO PATIENTS WHO ARE OR HAVE BEEN ENROLLED IN A CHEMICAL DEPENDENCY/SUBSTANCEABUSE PROGRAM, SOME INFORMATION MAY BE OMITTED. This clinical summary was aggregated from multiple sources. Caution should be exercised in using it in the provision of clinical care. This summary normalizes information from multiple sources, and as a consequence, information in this document may materially change the coding, format and clinical context of patient data. In addition, data may be omitted in some cases. CLINICAL DECISIONS SHOULD BE BASED ON THE PRIMARY CLINICAL RECORDS. [employer] provides no warranty or guarantee of the accuracy or completeness of information in this document.
== END | disposition home or self-care (01) ==
PROVIDERS: PCP Internal Medicine; Referring Provider Internal Medicine; Visit Provider Internal Medicine
DX: R19.7 Diarrhea, unspecified (principal); R10.9 Unspecified abdominal pain
CPT/HCPCS: 74177; Q9967

== ENCOUNTER → 2023-11-05 | Outpatient (CLI) | payer MEDICARE, SELFPAY ==
--- OUTSIDE RECORDS SUMMARY | 2023-11-05 12:31 | XMS RPT_ITS | CCD ---
Author Name Unknown Address [address] [facility] [place] [address] Organization [facility] Care Team Providers Care Sifting Operator Name Role Phone PROVIDER, UNKNOWN Attending Unavailable PROVIDER, UNKNOWN Admitting Unavailable Anastasiia Michelle MD Unavailable [phone] Anastasiia Michelle MD Unavailable Anastasiia Michelle MD Unavailable Unavailable Primary Care Provider UnavailMary Su MD Primary Care Provider ROQUE JOSE K Attending Unavailable SELF, SELF Referring Unavailable MARY DUMONT Primary Care Unavailable ROQUE, JOSE K Attending Unavailable ROQUE, JOSE K Referring Unavailable ROQUE, JOSE K Attending Unavailable SELF, SELF Referring Unavailable ROQUE, JOSE K Attending Unavailable ROQUE, JOSE K Referring Unavailable ORQUE, JOSE K Attending Unavailable ROQUE, JOSE K Referring Unavailable ROQUE, JOSE K Attending Unavailable ROQUE, JOSE K Referring Unavailable ROQUE, JOSE K Attending Unavailable MARY DUMONT Primary Care Unavailable ROQUE, JOSE K Admitting Unavailable MARY DUMONT Referring Unavailable ROQUE, JOSE K Attending Unavailable Allergies Allergy Classification Reported Allergen(s) Allergy Type Date of Onset Reaction(s) Facility (6 sources) VIANNEY REYES; Translations: [VIANNEY REYES] Propensity to adverse reactions to drug (disorder) 5 [facility] DULoxetine Drug Allergy 3 [facility] Medications Current Medications Medication Drug Class(es) Dates [...] Translations: [Disease of spinal cord, unspecified] Onset: 11-08-2023 Chronic Other nervous system disorders (2 sources) [...] height 177.8 cm Jose JAFFE Work Phone: [facility] 10-02-2023 10:53-0500 Body temperature 96.69 [degF] Jose JAFFE Work Phone: [facility] 10-02-2023 10:53-0500 Heart rate 69 /min Jose JAFFE Work Phone: [facility] 10-02-2023 10:53-0500 SaO2% (BldA) [Mass fraction] 97 % Jose JAFFE Work Phone: [facility] 05-30-2023 08:41-0400 Body height 177.8 cm Jose JAFFE Work Phone: [facility] 05-30-2023 08:41-0400 Diastolic blood pressure 77 mm[Hg] Jose JAFFE Work Phone: [facility] 05-30-2023 08:41-0400 Heart rate 58 /min Jose JAFFE Work Phone: [facility] 05-30-2023 08:41-0400 Systolic blood pressure 167 mm[Hg] Jose JAFFE Work Phone: [facility] Encounters Encounter Date Encounter Type Care Provider Facility Start: 11-08-2023 ambulatory JOSE ROQUE Facility: [facility] Start: 10-02-2023 ambulatory JOSE ROQUE Facility: [facility] Start: 10-02-2023 End: 10-02-2023 Office outpatient visit [...] vaccination [facility] Start: 03-23-2025 Lipid panel [facility] Start: 06-12-2023 End: 06-12-2023 Patient encounter procedure 06/12/2023 1:00 PM EDT Office Visit [facility] [address] [place] [address] Jose Roque, [place] [address] [place] [address] [address] [place] [address] [facility] Start: 05-31-2023 Influenza vaccination INFLUENZA VACCINE (#1) [facility] Start: 05-30-2023 End: 05-30-2023 Patient encounter procedure [facility] Start: 05-08-2023 End: 05-08-2024 MR Cervical spine WO contrast MRI SPINE CERVICAL WITHOUT CONTRAST Imaging Routine Myelopathy Expected: 05/08/2023, Expires: 05/08/2024 [facility] Immunizations Immunization Date Immunization Notes Care Provider Fa cility 07-28-2021 Seasonal, quadrivale nt, recombinant, injectable influenza vaccine, preservative free Anastasiia Michelle MD Work Phone: [facility] 07-28-2021 influenza virus vacc ine, unspecified formulation Anastasiia Michelle MD Work Phone: [facility] 06-25-2016 influenza, seasonal, injectable Anastasiia Michelle MD Work Phone: [facility] 05-28-2016 tetanus toxoid, redu elen diphtheria toxoid, and acellular pertussis vaccine, adsorbed Anastasiia Michelle MD Work Phone: [facility] 07-29-2015 influenza, seasonal, injectable Anastasiia Michelle MD Work Phone: [facility] 09-27-2014 influenza, seasonal, injectable Anastasiia Michelle MD Work Phone: [facility] 06-18-2013 influenza, seasonal, injectable Anastasiia Michelle MD Work Phone: [facility] 09-20-2011 influenza virus vacc ine, unspecified formulation Anastasiia Michelle MD Work Phone: [facility] 08-18-2007 influenza virus vacc ine, unspecified formulation Anastasiia Michelle MD Work Phone: [facility] Payers Date Payer Category Payer Medicare [id number] 2022 Medicare [id number] 2019 Medicare [id number] 2019 Medicare [id number] 1966 Unknown [id number] 2. [id number] 1966 Unknown [id number] 1966 Unknown [id number] [id number] 1966 Unknown [id number] 2. [id number] 1966 Unknown [id number] 2. [id number] 1966 Unknown [id number] 2. [id number] 1966 Unknown [id number] 2.16. [id number] 1966 Unknown [id number] 2.16. [id number] 1966 Unknown [id number] 2.16. [id number] 1966 Unknown [id number] 2.16. [id number] 1966 Unknown [id number] 2.16. [id number] 1966 Unknown [id number] 2.16. [id number] 1966 Unknown [id number] 2.16. [id number] Social History Date Type Detail Facility Start: 10-06-2019 Tobacco smoking status [facility] Start: 10-06-2019 Tobacco use and exposure Smokeless tobacco [facility] Start: 1965 Sex Assigned At Male [facility] History of tobacco use Current smoker [facility] Start: 05-08-2023 Tobacco smoking status [facility] Tobacco smoking consumption unknown [facility] Start: 1965 Sex Assigned At Not on file [facility] Start: 02-08-2021 Gender identity Identifies as male gender (finding) [facility] Sexual orientation Not on file [facility] Start: 02-08-2021 Sexual orientation Heterosexual (finding) [facility] History of Present illness Narrative 10-02-2023 LD [place] - 10/02/2023 10:45 AM EST Note Date & Type Note Facility 10-02-2023 History of Present illness Narrative Follow-up Visit: Chief Complaint/HPI: King Edmondson is a 57 y.o. male who presents [...] C5 Bic C5,6 WE C6 Triceps C7 Make Up Arranger C8 Intrinsics T1 Reference Right 5 5 [...] nature of his symptoms, I discussed with King Edmondson that surgery is a reasonable option for [...] they keep worsening 2. Surgery scheduling: Mr. Edmondson will be scheduled for surgery. 3. Preop Screening: he will be referred to Anesthesia/OPAC 4. Additional Discussion/Instructions: Mr. Edmondson will receive day of surgery instruction from [...] after surgery with XOA no The total ltlx-tq-bmlw time spent on this visit was at least greater than 20 minutes, with the majority (>50%) of the time spent in counseling, discussing pathology and management options, and coordination of care. Jose Roque MD documented in this encounter [facility] History of Present illness Narrative 06-12-2023 LD [place] - 06/12/2023 1:00 PM Gonzalo Arciniega MD - 06/12/2023 1:00 PM EDT Note Date & Type Note Facility 06-12-2023 History of Present illness Narrative I have personally seen and examined King Edmondson and reviewed the relevant images. Following my extensive edits, I agree with the clinical history, physical examination, and management plan detailed in the Fellow's note. I have personally discussed the diagnosis and management with the patient. The total qqzz-vl-hpbu time spent on this visit was greater than 30 minutes, with the majority (>50%) of the time spent in counseling, discussing pathology and management options, and coordination of care. Jose Roque MD Follow-up Visit: Chief Complaint / Reason for Visit : Follow-up for cervical and lumbar MRIs HPI: King Edmondson is a right Hand Dominant 57 y.o. male who presents with follow-up of cervical and lumbar MRIs. He was last seen in clinic on 05/08/23 for chronic LLE radiculopathy following a surgery in [place] in 2016 where he was found to [...] C5 Bic C5,6 WE C6 Triceps C7 Make Up Arranger C8 Intrinsics T1 Reference Right 5 5 [...] plan formulated for this visit. The total swhu-ag-xcwv time spent on this visit was greater [...] Orthopaedic Spine Fellow documented in this encounter [facility] History of Present illness Narrative 05-08-2023 [...] history of a left-sided diaz laminectomy in [place] in 2016 for left lower extremity radiculopathy without weakness [...] Vijay Brizuela MD Orthopaedic Surgery, PGY5 Pager #[phone] I have personally seen and examined King Edmondson and reviewed the relevant images. Following my extensive edits, I agree with the clinical history, physical examination, and management plan detailed in the resident's note. I have personally discussed the diagnosis and management with the patient. The total ysvq-fb-omta time spent on this visit was greater than 30 minutes, with the majority (>50%) of the time spent in counseling, discussing pathology and management options, and coordination of care. Jose Roque MD documented in this encounter [facility] Evaluation note Note Date & Type Note Facility documented in this encounter [facility] Evaluation note Note Date & Type Note Facility documented in this encounter [facility] Evaluation note Note Date & Type Note Facility documented in this encounter [facility] Evaluation note Note Date & Type Note Facility documented in this encounter [facility] Evaluation note Note Date & Type Note Facility documented in this encounter [facility] Evaluation note Note Date & Type Note Facility documented in this encounter [facility] Evaluation note Note Date & Type Note Facility documented in this encounter [facility] Summary Purpose Family History No Family History Records FoundNo Family History Records Found Advance Directives No Advanced Directives Records FoundNo Advanced Directives Records Found Reason for Referral Specialty Diagnoses / Procedures Referred By Contac t Referred To Contact Diagnoses Myelopathy Procedures MRI SPINE CERVICAL WITHOUT CONTRAST AR MRI, CERV SPINE Jose Roque MBBS [address] [place] [address] Referral ID Status Reason Start Date Expiration Date V isits Requested Visits Authorized [id number] Auth Not Needed 05/08/2023 06/01/2024 1 1 Specialty Diagnoses / Procedures Referred By Contac t Referred To Contact Diagnoses Degenerative disc disease, lumbar Spinal stenosis of lumbar region with neurogenic claudication Procedures MRI SPINE LUMBAR WITH AND WITHOUT CONTRAST AR MRI, LUMBAR SPINE COMBO Jose Roque MBBS [address] [place], [place] [id number] Referral ID Status Reason Start Date Expiration Date V isits Requested Visits Authorized [id number] Auth Not Needed 05/08/2023 06/01/2024 1 1 Specialty Diagnoses / Procedures Referred By Contact Referred To Contact Sports Medicine and Rehabilitation Diagnoses Degenerative disc disease, lumbar Spinal stenosis of lumbar region with neurogenic claudication Myelopathy Jose Roque MBBS [address] [place] [address] Referral ID Status Reason Start Date Expiration Date V isits Requested Visits Authorized [id number] New Request 05/08/2023 06/01/2024 1 1 Referral ID Status Reason Start Date Expiration Date Visits Re quested Visits Authorized [id number] Closed 05/08/2023 06/01/2024 1 1 Referral ID Status Reason Start Date Expiration Date Visits Re quested Visits Authorized [id number] Closed 05/08/2023 06/01/2024 1 1 Specialty Diagnoses / Procedures Referred By Contac t Referred To Contact PreOp Diagnoses Cervical myelopathy Osteoarthritis of cervical spine with myelopathy Spinal stenosis of cervical region Cervical disc disease Jose Roque, LD [address] [facility] [address] [place] [address] Referral ID Status Reason Start Date Expiration Date V isits Requested Visits Authorized [id number] New Request 10/02/2023 10/26/2024 1 1 Additional Source Comments (unrecognized sect ion and content) No Status Records FoundNo Status Records Found INFORMATION SOURCE (unrecogn ized section and content) DATE CREATED AUTHOR AUTHOR'S ORGANIZ ATION 10/24/2023 [facility] Care Teams (unrecognized sec tion and content) Sifting Operator Relationship Specialty Start Date End Date Anastasiia Michelle MD [address] [place], [place] [phone] Physician Rheumatology 07/05/20 Sifting Operator Relationship Specialty Start Date End Date Anastasiia Michelle MD [address] [place] [address] Physician Rheumatology 07/05/20 Sifting Operator Relationship Specialty Start Date End Date Mary Dumont MD [address] [place] [address] PCP - General Pulmonary Disease 10/02/23 Reason for Visit (unrecogniz ed section and content) Specialty Diagnoses / Procedures Referred By Contac t Referred To Contact Orthopaedics Diagnoses Lumbar radiculopathy Polyneuropathy, unspecified Dorsopathy, unspecified Mary Dumont MD [address] [place] [address] [facility] [address] [place] [address] Referral ID Status Reason Start Date Expiration Date V isits Requested Visits Authorized [id number] Pending Review 04/08/2023 05/02/2024 1 1 Specialty Diagnoses / Procedures Referred By Contac t Referred To Contact Diagnoses Myelopathy Procedures MRI SPINE CERVICAL WITHOUT CONTRAST AR MRI, CERV SPINE Jose Roque, LD [address] [facility] [place] [address] Referral ID Status Reason Start Date Expiration Date Visits Re quested Visits Authorized [id number] Closed 05/08/2023 06/01/2024 1 1 Specialty Diagnoses / Procedures Referred By Contac t Referred To Contact Diagnoses Degenerative disc disease, lumbar Spinal stenosis of lumbar region with neurogenic claudication Procedures MRI SPINE LUMBAR WITH AND WITHOUT CONTRAST AR MRI, LUMBAR SPINE COMBO Jose Roque, LD [address] [place] [address] Referral ID Status Reason Start Date Expiration Date Visits Re quested Visits Authorized [id number] Closed 05/08/2023 06/01/2024 1 1 Reason Comments [...] BE BASED ON THE PRIMARY CLINICAL RECORDS. [employer] provides no warranty or guarantee of the accuracy or completeness of information in this document.
== END | disposition home or self-care (01) ==
LOC: PSN 10:38
PROVIDERS: PCP Internal Medicine; Referring Provider Nurse Practitioner Acute Care; Visit Provider Nurse Practitioner Acute Care
DX: R06.00 Dyspnea, unspecified (principal)
CPT/HCPCS: 94060; 94726; 94729

== ENCOUNTER → 2023-11-12 | Outpatient (CLI) | payer MEDICARE, SELFPAY ==
--- OUTSIDE RECORDS SUMMARY | 2023-11-12 20:58 | XMS RPT_ITS | CCD ---
Author Name Unknown Address [address] [place] [address] Organization [facility] Care Team Providers Care Cracker Sprayer Name Role Phone PROVIDER, UNKNOWN Attending Unavailable PROVIDER, UNKNOWN Admitting Unavailable Anastasiia Michelle MD Unavailable [phone] Anastasiia Michelle MD Unavailable [phone] Anastasiia Michelle MD Unavailable Unavailable Primary Care [...] adverse reactions to drug (disorder) 5 [facility] (7 sources) DULoxetine Drug Allergy 3 [facility] Medications Current Medications Medication Drug Class(es) [...] height 177.8 cm Jose JAFFE Work Phone: [facility] 10-02-2023 10:53-0500 Body temperature 96.69 [degF] Jose JAFFE Work Phone: [facility] 10-02-2023 10:53-0500 Heart rate 69 /min Jose JAFFE Work Phone: [facility] 10-02-2023 10:53-0500 SaO2% (BldA) [Mass fraction] 97 % Jose JAFFE Work Phone: [facility] 05-30-2023 08:41-0400 Body height 177.8 cm Jose JAFFE Work Phone: [facility] 05-30-2023 08:41-0400 Diastolic blood pressure 77 mm[Hg] Jose JAFFE Work Phone: [facility] 05-30-2023 08:41-0400 Heart rate 58 /min Jose JAFFE Work Phone: [facility] 05-30-2023 08:41-0400 Systolic blood pressure 167 mm[Hg] Jose JAFFE Work Phone: [facility] Encounters Encounter Date Encounter Type Care Provider Facility Start: 11-08-2023 ambulatory JOSE ROQUE Facility: [facility] Start: 10-02-2023 ambulatory JOSE ROQUE Facility: [facility] Start: 10-02-2023 End: 10-02-2023 Office outpatient visit [...] vaccination [facility] Start: 03-23-2025 Lipid panel [facility] Start: 06-12-2023 End: 06-12-2023 Patient encounter procedure 06/12/2023 1:00 PM EDT Office Visit [facility] [place] [address] Jeff[address] [place] [address] Jose Roque, [place] [address] [place] [address] [address] [place] [address] [facility] Start: 05-31-2023 Influenza vaccination INFLUENZA VACCINE (#1) [facility] Start: 05-30-2023 End: 05-30-2023 Patient encounter procedure [facility] [place] Start: 05-08-2023 End: 05-08-2024 MR Cervical spine WO contrast MRI SPINE CERVICAL WITHOUT CONTRAST Imaging Routine Myelopathy Expected: 05/08/2023, Expires: 05/08/2024 [facility] Immunizations Immunization Date Immunization Notes Care Provider Fa cility 07-28-2021 Seasonal, quadrivale nt, recombinant, injectable influenza vaccine, preservative free Anastasiia Michelle MD Work Phone: [facility] 07-28-2021 influenza virus vacc ine, unspecified formulation Anastasiia Michelle MD Work Phone: [facility] 06-25-2016 influenza, seasonal, injectable Anastasiia Michelle MD Work Phone: [facility] 05-28-2016 tetanus toxoid, redu elen diphtheria toxoid, and acellular pertussis vaccine, adsorbed Anastasiia Michelle MD Work Phone: [facility] 07-29-2015 influenza, seasonal, injectable Anastasiia Michelle MD Work Phone: [facility] 09-27-2014 influenza, seasonal, injectable Anastasiia Michelle MD Work Phone: [facility] 06-18-2013 influenza, seasonal, injectable Anastasiia Michelle MD Work Phone: [facility] 09-20-2011 influenza virus vacc ine, unspecified formulation Anastasiia Michelle MD Work Phone: [facility] 08-18-2007 influenza virus vacc ine, unspecified formulation Anastasiia Michelle MD Work Phone: [facility] Payers Date Payer Category Payer Medicare [id number] 2022 Medicare [id number] 2019 Medicare [id number] 2019 Medicare [id number] 1966 Unknown [id number] 2. [id number] 1966 Unknown [id number] 1966 Unknown [id number] [id number] 1966 Unknown [id number] 2. [id number] 1966 Unknown [id number] 2. [id number] 1966 Unknown [id number] 2. [id number] 1966 Unknown [id number] 2.16. [id number] 1966 Unknown [id number] 2.16. [id number] 1966 Unknown [id number] 2.16. [id number] 1966 Unknown [id number] 2.16. [id number] 1966 Unknown [id number] 2.16. [id number] 1966 Unknown [id number] 2.16. [id number] 1966 Unknown [id number] 2.16. [id number] Social History Date Type Detail Facility Start: 10-06-2019 Tobacco smoking status [facility] Start: 10-06-2019 Tobacco use and exposure Smokeless tobacco [facility]-user [facility] Start: 1965 Sex Assigned At Male [facility] History of tobacco use Current smoker [facility] Start: 05-08-2023 Tobacco smoking status [facility] Tobacco smoking consumption unknown [facility] Start: 1965 Sex Assigned At Not on file [facility] Start: 02-08-2021 Gender identity Identifies as male gender (finding) [facility] Sexual orientation Not on file [facility] Start: 02-08-2021 Sexual orientation Heterosexual (finding) [facility] History of Present illness Narrative 10-02-2023 [...] C5 Bic C5,6 WE C6 Triceps C7 Senior Media Planner C8 Intrinsics T1 Reference Right 5 5 [...] after surgery with XOA no The total ymdi-df-rxvh time spent on this visit was at least greater than 20 minutes, with the majority (>50%) of the time spent in counseling, discussing pathology and management options, and coordination of care. Jose Roque MD documented in this encounter [facility] History of Present illness Narrative 06-12-2023 [...] and management with the patient. The total noal-oe-grbp time spent on this visit was greater [...] chronic LLE radiculopathy following a surgery in [place] in 2016 where he was found to [...] C5 Bic C5,6 WE C6 Triceps C7 Senior Media Planner C8 Intrinsics T1 Reference Right 5 5 [...] plan formulated for this visit. The total atzd-nm-eagc time spent on this visit was greater [...] Spine Fellow documented in this encounter [facility] History of Present illness Narrative 05-08-2023 [...] history of a left-sided diaz laminectomy in [place] in 2016 for left lower extremity radiculopathy [...] Vijay Brizuela MD Orthopaedic Surgery, PGY5 Pager #[phone] I have personally seen and examined King Edmondson and reviewed the relevant images. Following my extensive edits, I agree with the clinical history, physical examination, and management plan detailed in the resident's note. I have personally discussed the diagnosis and management with the patient. The total iwof-rh-imsi time spent on this visit was greater than 30 minutes, with the majority (>50%) of the time spent in counseling, discussing pathology and management options, and coordination of care. Jose Roque MD documented in this encounter [facility] Evaluation note Note Date & Type Note Facility documented in this encounter [facility] Evaluation note Note Date & Type Note Facility documented in this encounter [facility] Evaluation note Note Date & Type Note Facility documented in this encounter [facility] Evaluation note Note Date & Type Note Facility documented in this encounter [facility] Evaluation note Note Date & Type Note Facility documented in this encounter [facility] Evaluation note Note Date & Type Note Facility documented in this encounter [facility] Evaluation note Note Date & Type Note Facility documented in this encounter [facility] Summary Purpose Family History No Family History Records FoundNo Family History Records Found Advance Directives No Advanced Directives Records FoundNo Advanced Directives Records Found Reason for Referral Specialty Diagnoses / Procedures Referred By Contac t Referred To Contact Diagnoses Myelopathy Procedures MRI SPINE CERVICAL WITHOUT CONTRAST NM MRI, CERV SPINE Jose Roque MBBS [address] [place] [address] Referral ID Status Reason Start Date Expiration Date V isits Requested Visits Authorized [id number] Auth Not Needed 05/08/2023 06/01/2024 1 1 Specialty Diagnoses / Procedures Referred By Contac t Referred To Contact Diagnoses Degenerative disc disease, lumbar Spinal stenosis of lumbar region with neurogenic claudication Procedures MRI SPINE LUMBAR WITH AND WITHOUT CONTRAST NM MRI, LUMBAR SPINE COMBO Jose Roque MBBS [address] [place], [place] [id number] Referral ID Status Reason Start Date Expiration Date V isits Requested Visits Authorized [id number] Auth Not Needed 05/08/2023 06/01/2024 1 1 Specialty Diagnoses / Procedures Referred By Contact Referred To Contact Sports Medicine and Rehabilitation Diagnoses Degenerative disc disease, lumbar Spinal stenosis of lumbar region with neurogenic claudication Myelopathy Jose Roque MBBS [address] [place] [address] Referral ID Status Reason Start Date Expiration Date V isits Requested Visits Authorized [id number] New Request 05/08/2023 06/01/2024 1 1 Referral ID Status Reason Start Date Expiration Date Visits Re quested Visits Authorized [id number] Closed 05/08/2023 06/01/2024 1 1 Referral ID Status Reason Start Date Expiration Date Visits Re quested Visits Authorized [id number] Closed 05/08/2023 06/01/2024 1 1 Specialty Diagnoses / Procedures Referred By Contac t Referred To Contact PreOp Diagnoses Cervical myelopathy Osteoarthritis of cervical spine with myelopathy Spinal stenosis of cervical region Cervical disc disease Jose Roque, [place] [address] [facility] [address] [place] [address] Referral ID Status Reason Start Date Expiration Date V isits Requested Visits Authorized [id number] New Request 10/02/2023 10/26/2024 1 1 Additional Source Comments (unrecognized sect ion and content) No Status Records FoundNo Status Records Found INFORMATION SOURCE (unrecogn ized section and content) DATE CREATED AUTHOR AUTHOR'S ORGANIZ ATION 10/24/2023 [facility] Care Teams (unrecognized sec tion and content) Cracker Sprayer Relationship Specialty Start Date End Date Anastasiia Michelle MD [address] [place], [place] [id number] Physician Rheumatology 07/05/20 Cracker Sprayer Relationship Specialty Start Date End Date Anastasiia Michelle MD [address] [place] [address] Physician Rheumatology 07/05/20 Cracker Sprayer Relationship Specialty Start Date End Date Mary Dumont MD [address] [place] [address] PCP - General Pulmonary Disease 10/02/23 Reason for Visit (unrecogniz ed section and content) Specialty Diagnoses / Procedures Referred By Contac t Referred To Contact Orthopaedics Diagnoses Lumbar radiculopathy Polyneuropathy, unspecified Dorsopathy, unspecified Mary Dumont MD [address] [place] [address] [facility] [address] [place] [address] Referral ID Status Reason Start Date Expiration Date V isits Requested Visits Authorized [id number] Pending Review 04/08/2023 05/02/2024 1 1 Specialty Diagnoses / Procedures Referred By Contac t Referred To Contact Diagnoses Myelopathy Procedures MRI SPINE CERVICAL WITHOUT CONTRAST NM MRI, CERV SPINE Jose Roque, LD [address] [facility] [place] [address] Referral ID Status Reason Start Date Expiration Date Visits Re quested Visits Authorized [id number] Closed 05/08/2023 06/01/2024 1 1 Specialty Diagnoses / Procedures Referred By Contac t Referred To Contact Diagnoses Degenerative disc disease, lumbar Spinal stenosis of lumbar region with neurogenic claudication Procedures MRI SPINE LUMBAR WITH AND WITHOUT CONTRAST NM MRI, LUMBAR SPINE COMBO Jose Roque, LD [address] [place] [address] Referral ID Status Reason Start Date Expiration Date Visits Re quested Visits Authorized [id number] Closed 05/08/2023 06/01/2024 1 1 Reason Comments [...] BE BASED ON THE PRIMARY CLINICAL RECORDS. [employer] provides no warranty or guarantee of the accuracy or completeness of information in this document.
== END | disposition home or self-care (01) ==
LOC: SL 19:57
PROVIDERS: PCP Internal Medicine; Visit Provider Nurse Practitioner Acute Care
DX: G47.33 Obstructive sleep apnea (adult) (pediatric) (principal)
CPT/HCPCS: 95811

== ENCOUNTER 2023-12-30 11:03 | Emergency (ER) | payer MEDICARE, SELFPAY ==
[2023-12-30 11:05] VITALS: BP 170/86; PULSE 66; RESP 16; TEMP 36.2; O2SAT 97; BMI 25.5
--- NOTE | 2023-12-30 11:25 | EKG12_ITS ---
Test Reason : Blood Pressure : / mmHG Vent. Rate : 059 BPM Atrial Rate : 059 BPM P-R Int : 174 ms QRS Dur : 094 ms QT Int : 420 ms P-R-T Axes : 043 -04 016 degrees QTc Int : 415 ms Sinus bradycardia Cannot rule out Inferior infarct , age undetermined Abnormal ECG Confirmed by Juancho Casey ([id number]), editor trade journal RADHA JUÁREZ ([id number]) on 12/31/2023 10:16:28 AM Referred By: CEDRIC Confirmed By:Juancho Casey
--- NOTE | 2023-12-30 11:26 | EDS_ITS ---
HPI History of Present Illness Chief Complaint: Hypertension Informant: patient Onset/Context/Timing Onset: Days Context: Gradual Onset Timing: Intermittent Current Severity: Mild Maximum Severity: Mild Narrative Narrative: 58-year-old male history of hypertension on hydrochlorothiazide, lisinopril and metoprolol. He had neck fusion of C5, 6 and 7 done at [facility] on 12/19/2023. He has been doing well. He states his blood pressure has been running higher than his normal. Today is 170/86. He has had intermittent headaches and he wanted evaluated. He denies any vomiting. No fever. No weakness. He said prior to the surgery he was having tingling and numbness in his hands that is improving. Prior similar symptoms: Yes Recent Illness/Hospitalization: Yes PFSH [facility] Medical History Abdominal pain Ambulates with cane Anxiety Arthritis Back pain Back problem Cardiology follow-up encounter Cervical myelopathy Chest pain Chronic lumbar radiculopathy CPAP (continuous positive airway pressure) dependence Depression Diarrhea Difficulty swallowing Dyslipidemia Dyspnea on exertion Elevated LFTs Encounter for wellness examination in adult Fatigue Fatty liver Former smoker Gastric reflux Gastrointestinal problem Hand weakness Hereditary hemochromatosis High cholesterol History of IBS History of stress test Hyperammonemia Hyperglycemia Hyperlipidemia Hypertension Hypertension Hypertriglyceridemia Idiopathic peripheral neuropathy Impingement syndrome, shoulder, left Left chest pressure Left temporomandibular joint disorder, unspecified Leg cramps Low back pain Neck and shoulder pain Neck pain Neuropathy New onset of headaches Numbness and tingling of both legs MADELEINE (obstructive sleep apnea) Polyneuropathy Psoriasis Seasonal allergies Shortness of breath on exertion Skin lesion of back Sleep apnea Sleep apnea Vitamin d deficiency Wears glasses Home Medications Handicap Placard #1 ea 01/03/23 [Rx Last Taken Unknown] lisinopril 40 mg tablet 40 mg PO DAILY #90 tabs 05/20/23 [Rx Last Taken 05/22/23] hydrochlorothiazide 25 mg tablet 25 mg PO DAILY htn #90 tabs 08/05/23 [Rx Last Taken Unknown] cholecalciferol (vitamin D3) 1,250 mcg (50,000 unit) capsule 1,250 mcg PO .QOWEEK 09/11/23 [History Last Taken Unknown] omeprazole 40 mg capsule,delayed release 40 mg PO DAILY 10/14/23 [History Last Taken Unknown] fenofibrate 54 mg tablet 54 mg PO DAILY #90 tabs 12/02/23 [Rx Last Taken Unknown] metoprolol tartrate 50 mg tablet 50 mg PO BID htn #180 tabs 12/02/23 [Rx Last Ta joselito Unknown] citalopram 20 mg tablet 20 mg PO DAILY #30 tabs 12/23/23 [Rx Last Taken Unknown] hydroxyzine pamoate 25 mg capsule 25 mg PO TID PRN anxiety #90 caps 12/23/23 [Rx Last Taken Unknown] lorazepam 1 mg tablet 1 mg PO DAILY PRN Anxiety #30 tabs 12/24/23 [Rx Last Taken Unknown] cyclobenzaprine 5 mg tablet 5 mg PO TID PRN 12/25/23 [History Last Taken Unknown] oxycodone-acetaminophen 5 mg-325 mg tablet (Percocet) 1 tab PO Q6H PRN 12/25/23 [History Last Taken Unknown] Allergy/AdvReac Type Severity Reaction Status Date / Time tree and shrub pollen Allergy Unknown Verified 12/30/23 11:07 duloxetine [From Cymbalta] AdvReac Severe Other Verified 12/30/23 11:07 amlodipine AdvReac Intermediate Lips Verified 12/30/23 11:07 tingling, feels strange nifedipine AdvReac Intermediate Palpitations, Verified 12/30/23 11:07 SOB, depressed mood Family History Sister MADELEINE (obstructive sleep apnea) Other Alcoholism Depression Diabetes Hypertension Myocardial infarction Surgical History History of back surgery History of colonoscopy History of hernia surgery History of surgery History of tonsillectomy Social History Smoking Status: Former smoker second hand exposure: No alcohol intake: never substance use type: does not use what type of physical activity do you participate in: none jordan/judaism: None seatbelt use: always ROS ROS ED ROS Narrative Headache. Review of Systems ROS Unobtainable: Denies due to encephalopathy Constitutional Constitutional ED: Denies chills or fever(s) Eyes Eyes: Denies blurry vision ENT ENT ED: Denies ear pain Cardiovascular Cardiovascular: Denies chest pain Respiratory/Chest Respiratory/Chest: Denies cough or dyspnea Gastrointestinal Gastrointestinal: Denies abdominal pain Genitourinary Genitourinary ED: Denies dysuria or hematuria Musculoskeletal Musculoskeletal: Denies arthralgias Integumentary Denies abscess or Abrasions Neurologic Neurologic: Reports headache(s); Denies paresthesias Psychiatric Psychiatric: Denies anxiety or depression Endocrine Endocrinology: Denies cold intolerance Hematologic/Lymphatic Hematologic/Lymphatic: Reports none Allergic/Immunologic Allergic/Immunologic ED: Denies mouth swelling, tongue swelling or urticaria EXAM Physical Exam Narrative Exam Narrative: Well-appearing 58-year-old male vital signs stable afebrile. Sitting upright in bed. Initial blood pressure 170/86. He is in no distress. H EENT exam pupils are round and reactive light extra motions are intact. No facial droop. Normal speech. Neck well-healing anterior surgical approach. Bandage in place. No erythema. No discharge or drainage. Posterior C-spine unremarkable. Lungs clear to auscultation bilaterally. Heart regular rhythm no murmur rate about 66. Chest wall and ribs nontender. Abdomen soft nontender. Moving all 4 extremities. 5-5 electrical appliance servicer strength. Dorsi plantarflexion intact. Normal sensation. Neurologically is awake and alert with no focal motor deficits. NIH is 0. Const Vital Signs: 12/30/23 11:05 12/30/23 11:05 12/30/23 11:20 Temperature 97.1 F L 97.1 F L Temperature Source Temporal Temporal Pulse Rate 66 66 Respiratory Rate 16 16 Respiratory Effort Normal Respiratory Pattern Normal Blood Pressure 170/86 H 170/86 H Blood Pressure Mean 114 114 Pulse Ox 97 97 Oxygen Delivery Method Room Air Room Air Positive well nourished and well developed; Negative for obese, cachectic, contractures or unkempt General Appearance ED: well developed and NAD; Negative for unkempt, cachectic, contractures, cyanotic, diaphoretic or pallor Nutritional Appearance: Negative for cachectic or obese HEENT Reports moist mucous membranes; Denies dry mucous membranes Negative for trauma or tenderness Mouth ED: No dry mucous membranes Mouth: No dry mucous membranes Eyes PERRL and EOMs intact bilaterally General Eye ED: Negative for pale conjunctiva or scleral icterus Neck no lymphadenopathy, supple and no JVD Neck Narrative: Well-healing anterior surgical incision. General: Negative for tenderness Chest Wall inspection of chest normal and palpation of chest normal Chest: Negative for other Resp normal respiratory effort and clear to auscultation bilaterally Effort and Inspection: Negative for retractions Auscultation: Negative for rales, rhonchi or wheezes Cardio regular rate, regular rhythm, S1 normal heart sound, S2 normal heart sound and no murmurs Palpation: Negative for palpable S3 or palpable S4 Rate: Negative for bradycardia or tachycardic Rhythm: Negative for abnormal rhythm GI normal to inspection, nondistended, normoactive bowel sounds, non-tender, non- distended and no masses Inspection: Negative for abdominal distention Auscultation: normoactive bowel sounds Palpation: soft; Negative for tender or guarding Back/Spine no CVA tenderness Cervical Spine: Negative for cervical spine tenderness Thoracic Spine / Upper Back: Negative for thoracic spinal tenderness or paraspinal muscle tenderness Lumbar Spine / Lower Back: Negative for lumbar spinal tenderness Extremity normal to inspection General Extremety ED: Negative for edema or tenderness General Extremity: Negative for edema Neuro oriented x3, CN's II-XII intact bilaterally and no sensory deficits noted Sensorium / Orientation: alert; Negative for orientation impaired, lethargic or stuporous Motor Exam: strength 5/5 throughout; Negative for general weakness or strength abnormal Psych mental status grossly normal Appearance: Negative for unkempt Attitude: No agitated Mood & Affect: Negative for depressed, anxious or tearful Skin no rashes or lesions noted, no wounds and skin turgor normal General Skin Exam: elasticity normal; Negative for jaundice or pallor Lesions: No lesion noted Rashes: No rashes noted Trauma: Negative for abrasion Wounds: Negative for wounds noted MDM MDM MDM Narrative Medical decision making narrative: 58-year-old male status post anterior neck fusion complaining of acute on chronic hypertension. He is also had headaches. CAT scan of his brain to rule out hypertensive bleed. EKG. Otherwise exam is normal his neurologic exam is normal. I suspect he will be able to be discharged home continue his current blood pressure medications and follow-up to see if they need to alter the dosages or changes medication. Repeat exam patient is doing well at 12:20 PM. He will be discharged home with outpatient follow-up. We went over his EKG and CAT scan results. History & Record Review Discussion w/independent historian: Patient and Family Additional record(s) reviewed:: Prior inpatient record, Prior outpatient record, Prior ED visit, Prior labs and No prior records Radiography Diagnostic Testing: Clinical Impression(s) from Imaging Studies Brain CT 12/30/23 11:34 IMPRESSION: No acute intracranial process. Electronically Signed: Melvi Velazquez MD at 11:49 EDT , Rhythm Strip Rhythm Strip: Sinus Rhythm Rate: 59 Ectopy: None EKG Initial EKG: Attestation: I personally reviewed and interpreted this EKG as follows: Interpretation: Sinus Rhythm and Sinus Bradycardia Comments: Sinus bradycardia rate of 59 no acute signs of NH, ischemia or dysrhythmia. Discharge Plan Triage Chief Complaint: Hypertension ED Provider: Evens Luciano Dx/Rx/DC Orders Clinical Impression: History of neck surgery, Hypertension Instructions: ED Hypertension, Established Prescriptions: No Action (DME) Handicap Placard See Rx Instructions .Route .MEDSUPPLY Qty: 1 0RF Rx Instructions: As directed RX good 5 years 01/03/23-01/04/28 omeprazole 40 mg capsule,delayed release(DR/EC) 40 mg PO DAILY cholecalciferol (vitamin D3) 1,250 mcg (50,000 unit) capsule 1,250 mcg PO .QOWEEK citalopram 20 mg tablet 20 mg PO DAILY Qty: 30 6RF hydroxyzine pamoate 25 mg capsule 25 mg PO TID PRN (Reason: anxiety) Qty: 90 6RF oxycodone-acetaminophen [Percocet] 5-325 mg tablet 1 tab PO Q6H PRN cyclobenzaprine 5 mg tablet 5 mg PO TID PRN lisinopril 40 mg tablet 40 mg PO DAILY Qty: 90 3RF hydrochlorothiazide 25 mg tablet 25 mg PO DAILY Qty: 90 3RF fenofibrate 54 mg tablet 54 mg PO DAILY Qty: 90 1RF metoprolol tartrate 50 mg tablet 50 mg PO BID Qty: 180 3RF lorazepam 1 mg tablet 1 mg PO DAILY PRN (Reason: Anxiety) Qty: 30 0RF Primary Care Provider: Zeinab Dumont Referrals: Zeinab Dumont MD [Primary Care Provider] - 1 Week if not improving Activity Restrictions/Additional Instructions: Log your blood pressure twice daily. Show there is your primary care physician when you follow-up with him next week. Take your blood pressure medications as prescribed. Disposition Disposition: Home, Self Care
--- NOTE | 2023-12-30 11:34 | CT_ITS ---
INDICATION: htn and headache EXAMINATION: CT BRAIN - CT Head or Brain W/O Contrast Injection TECHNIQUE: Multiple axial images were obtained of the head without intravenous contrast. A radiation dose optimization technique was used for this scan. IV Contrast dosage and agent: None. RADIATION DOSAGE (If Supplied By Facility): CTDIvol = ( 44.99 ) mGy, DLP = ( 829.85 ) mGycm COMPARISON: December 01, 2020 and MRI dated December 28, 2020 FINDINGS: BRAIN PARENCHYMA: No intra- or extra-axial hemorrhage. No evidence of acute infarct. No intracranial mass or mass effect. There is preservation of the augustin/white matter interface. Posterior fossa structures are unremarkable. CSF SPACES: Appropriate for age. No hydrocephalus. Basal cisterns are patent. CALVARIUM, SKULL BASE, PARANASAL SINUSES AND MASTOID AIR CELLS: Clear. No discrete lytic or blastic abnormalities. ORBITS: Both globes, extraocular muscles, optic nerves and retrobulbar fat appear unremarkable. ASPECTS Score for Acute Strokes: 10 CT/Brain/Head without Contrast IMPRESSION: No acute intracranial process. Electronically Signed: Melvi Velazquez MD at 11:49 EDT ,
--- NOTE | 2023-12-30 11:41 | ED.RN ---
NO OLD EKG
[2023-12-30 12:28] VITALS: BP 178/90; PULSE 72; RESP 16; O2SAT 100
== END 2023-12-30 12:29 | disposition home or self-care (01) ==
PROVIDERS: Emergency Provider Emergency Medicine; PCP Internal Medicine; Visit Provider Emergency Medicine
DX: I10 Essential (primary) hypertension (principal); G47.33 Obstructive sleep apnea (adult) (pediatric); Z87.891 Personal history of nicotine dependence
CPT/HCPCS: 70450; 93005; 99282

== ENCOUNTER → 2024-01-16 | Outpatient (CLI) | payer MEDICARE, SELFPAY ==
[2024-01-16 08:50] LABS: Absolute Lymphocyte Count 1.86 X10^3/uL (0.83-4.51); Basophil# 0.03 X10^3/uL; Basophil% 0.5 % (0-1); Eosinophil# 0.36 X10^3/uL; Eosinophils% 6.2 % (0-5); Hematocrit 44.3 % (40-54); Hemoglobin 15.3 g/dL (13.0-16.5); Lymphocyte # 1.86 X10^3/ul (0.83-4.51); Lymphocyte % 32.2 % (19-41); Mean Corp Hgb Conc 34.5 g/dL (32-36); Mean Corpuscular Hgb 31.9 pg (27.0-32.0); Mean Corpuscular Volume 92.3 fL (80-94); Mean Platelet Vol. 9.3 fl (6.2-12.0); Monocyte# 0.54 X10^3/uL; Monocyte% 9.3 % (0-10); NRBC Flagged by Analyzer 0 % (0-5); Neutrophil # 2.98 X10^3/uL (2.7-7.7); Neutrophil % 51.6 % (47-70); Platelet Count 236 K/mm3 (150-450); RBC Distribution Width CV 12.2 % (11.6-14.6); RBC Distribution Width SD 41.9 fl (35.1-43.9); White Blood Count 5.8 K/mm3 (4.4-11.0)
[2024-01-16 09:42] LABS: International Normalized Ratio 1.1; Prothrombin Time (Protime)PT. 14.3 SECONDS (11.7-14.9)
[2024-01-16 09:57] LABS: PSA,Total - Annual Screen 0.64 ng/mL (0.00-4.00)
[2024-01-16 10:06] LABS: ALB/GLOB Ratio 1.2 RATIO (0.9-2.4); AST(SGOT) 29 U/L (15-37); Alanine Aminotransfer ALT/SGPT 45 U/L (16-61); Albumin, Serum 3.9 g/dL (3.2-5.0); Alkaline Phosphatase 82 U/L (45-117); Anion Gap 4 (5-15); BUN 19 mg/dL (7-18); BUN/Creat Ratio 23.5 RATIO (10-20); CRP < 2.90 mg/L (0.0-3.0); Calcium,Total 9.2 mg/dL (8.5-10.1); Chloride 100 mmol/L (98-107); Cholesterol 199 mg/dL (200); Creatinine, Serum 0.81 mg/dL (0.70-1.30); EST Glomerular Filtration Rate 105 mL/min (>60); Est Glom Filt Rate - Afr Amer 126 mL/min (>60); Ferritin 273 ng/mL (26-388); Globulin 3.2 g/dL (2.2-4.2); Glucose 129 mg/dL (74-106); High Density Lipoprotein 40 mg/dL; Iron 249 ug/dL (65-175); Iron Binding Capacity,Total 314 ug/dL (250-450); Lipase 45 U/L (13-75); PERCENT IRON SATURATION 79.3 % (15.0-55.0); Potassium 4.1 mmol/L (3.5-5.1); Protein, Total 7.1 g/dL (6.4-8.2); Sodium Level 133 mmol/L (136-145); Triglycerides 186 mg/dL; Very Low Density Lipoprotein 37 mg/dL (5-40)
[2024-01-17 15:08] LABS: AFP, Tumor Marker < 1.8 ng/mL (0.0-8.4); Cytoplasmic Ab (C-ANCA) <1:20 titer (Neg:<1:20); Perinuclear Ab (P-ANCA) <1:20 titer (Neg:<1:20); Transferrin 244 mg/dL (177-329)
[2024-01-23 13:08] LABS: Giardia Lamblia, Stool EIA Negative (Negative); H. PYLORI STOOL AG Negative (Negative); Pancreatic Elastase, Fecal 383 (>200)
[2024-01-25 00:06] LABS: Fats, Neutral Normal (.); Fats, Total Normal (.)
== END | disposition home or self-care (01) ==
PROVIDERS: PCP Internal Medicine; Referring Provider Internal Medicine; Visit Provider Internal Medicine
DX: E83.110 Hereditary hemochromatosis (principal); R19.7 Diarrhea, unspecified; I10 Essential (primary) hypertension; E78.5 Hyperlipidemia, unspecified; Z12.5 Encounter for screening for malignant neoplasm of prostate
CPT/HCPCS: 36415; 80053; 80061; 82105; 82274; 82653; 82705; 82728; 83540; 83550; 83630; 83690; 84153; 84466; 85025; 85610; 86140; 86256; 87329; 87338; G0103

== ENCOUNTER 2024-02-12 07:18 | Day surgery (SDC) | payer MEDICARE, SELFPAY ==
[2024-02-12 07:37] VITALS: BP 134/80; PULSE 69; RESP 16; TEMP 36.5; O2SAT 98; BMI 25.6
[2024-02-12] MEDS: Lactated Ringers 1,000 ML 15 ML IV (07:49)
--- NOTE | 2024-02-12 08:30 | EGD_PTH ---
PATIENT: IFTIKHAR FLEMING LOC: EN U#:[id number] AGE/SX: 58/M ROOM: RE02/12/[address]: Dr. Guanaco Guerin DO : 1965 BED: DIS: 02/12/2024 SPEC #: [id number] RECD: 02/12/24 09:44 STATUS: CATARINA BERNARDINO #: [id number] JUDIT: 02/12/24 08:[address]: Guanaco Guerin DEPT: SURGICAL PATHOLOGY RECD BY: Angela Broderick ENTERED: 02/12/24 12:19 SP TYPE: EGD BIOPSY ISSAC DR: Dr. Zeinab Dumont MD Tissues: Esophagus, NOS Procedures: Special Stain Group II Surgery Specimen Level IV Alcian Blue/PAS (control) HEADER OPERATION: EGD with biopsy PRE-OP DIAGNOSIS: Hereditary hemochromatosis, diarrhea TISSUE SUBMITTED: Distal esophagus biopsy MICROSCOPIC DIAGNOSIS Distal esophagus, biopsy: Fragments of gastroesophageal mucosa with chronic inflammation. Intestinal metaplasia (goblet cell metaplasia) not identified. See comment. / 02/13/2024 COMMENT Alcian blue/PAS stain with matched control is used in the evaluation of the specimen. MICROSCOPIC DESCRIPTION Slides are reviewed. GROSS DESCRIPTION Received in fixative is one container labeled with the patient's name and designated Distal esophagus biopsy. The specimen consists of multiple irregular fragments of light barrow soft tissue that in aggregate measure 1.0 x 0.3 x 0.1 cm. The specimen is totally submitted in one cassette. / 02/12/2024 TC:3 CPT:76616,62271
--- NOTE | 2024-02-12 08:37 | PCM.HP.BLA ---
History and Physical Date of Admission: 02/12/24 HPI Chief Complaint: RLQ pain Details: IFTIKHAR FLEMING, is a 58 M who presents to the office today for follow up. Hereditary Hemochromatosis Elevated [facility] PCP OV 01.03.23 for wellness noting chronic issues of chronic back pain, HTN, neuropathy (neurology, Effexor), depression, hypertriglyceridemia, anxiety. Biochemical 01.16.23 CBC, CMP, Vit D25, TSH AST-ALT-AP Triglycerides Cholesterol 3.04.22 [phone] 199 4.19.23 [phone] US RUQ .. hepatic measurement 17.5cm with fatty infiltration. *BGI established 5.. with lower abdominal pain, bloating, loose/watery stools which can get better and worse: severe symptoms present approximately every 3-4 months with chronic diarrhea on a daily basis minimally 4 times. Cymbalta attempted for anxiety/depression though felt it caused GI distress and was stopped. Probiotic attempted and felt it caused abdominal pain. Recalls a medication in the past that was taken for this that he had a reaction to. Biochemical CBC, ESR, coag, CMP, LDH, CRP, HIV, RAST, EMELIA, copper, ceruloplasmin, haptoglobin, hepatitis, AMA, ASM, ELIDA comp, ANCA, GAME, EDISON, celiac, gastrin, TIBC without pertinent abnormality. A1c H6.1, ferritin H1442, AST H42-ALT H86-AP 80, ammonia H38, retic H2.25, Iron H279, iron sat H88.9, transferrin sat calculation H88% Stool calprotectin, lactoferrin, EP, blood, O/P giardia WNL. C.difficile ag A/B+, Elastase L122 Elastography 03.08.23 stiffness 12.3kPa Contact 03.01.23 with bloodwork results and C.difficile results. Recommend additional bloodwork, hematology referral and start of vancomycin. Contact 03.12.23 has been taking vancomycin continues to have loose stools frequently; previously used probiotics in the past and felt bloated and uncomfortable. Recommend fiber with prebiotic as he does not have an issue with this. Seeing Dr. Hawley tomorrow and will determine GI plan after that workup has been underway. [facility] OV hematology 03.13.23 bloodwork. Biochemical CBC (hgb 17.2), Iron, TIBC, iron sat without pertinent abnormality Ferritin H1524, hemochromatosis homozygous C282Y GI workup: Liver biopsy 05.01.23 extensive macrovesicular steatosis with marked iron deposits 4+, consistent with hemochromatosis. No obvious cirrhosis. Contact 05.06.23 with liver biopsy results; continue management with hematology and low-iron diet. 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 H.Pylori neg Colonoscopy diverticulosis; 8mm TA polyp; congested mucosa. Contact 05.28.23 with endoscopy results. OV 07.01.23 bloating and loose stools have been a difficulty for the last few months. Doxycycline was initially very helpful with bloating, stopped for a couple of weeks (completed) and new prescription started last week with some improvement. [facility] hematology with goals for ferritin and iron saturation with phlebotomy management; start dietary changes. With phlebotomy he has had a decrease in iron levels; will continue with therapy for the next few months and then recheck. OV 10.14.23-patient had phlebotomy In hematology clinic. Last ferritin 587 in May 2023. Iron saturation 48.3%, serum iron 152. Patient complained of diarrhea and bloating and lower abdominal discomfort. He said last Saturday about 2- 3 days ago he had a vomiting mainly brownish color. Currently complains of loose watery yellow stool with no blood for about 3 weeks to 1 month for last 1 week. Is mainly complaining of diarrhea and bloating and lower abdominal discomfort which is mild. CT abd/pel w/ contrast 10.22.23- Multiple small gallstones, diffuse fatty infiltration of liver, small lymph nodes seen in the root of the mesentery, Prostatic enlargement with indentation of bladder base and central prostatic calcification. Contact 11.08.23- Diarrhea improved since holding fenofibrate, has had issues with statins. Advised to start back on Fenofibrate 54mg with 2 caps of probiotic. OV 01.15.24- Pt stable since last visit. Since going back on Fenofibrate states stools are better but still loose. Will have solid stools in the morning but will turn loose during the day about 1-2/day. Patient also complaining of mild pain in the epigastric region feels like stabbing ROS Const Constitutional: Positive for headache(s) and weakness; No fatigue ENT ENT: Positive for headache(s); No difficulty swallowing Cardio Cardiology: Positive for leg pain with exertion Gastro GI: Positive for diarrhea; No abdominal pain, belching, bloating, change in bowel habits, change in stool character, coffee ground emesis, constipation, cramping, heartburn, difficulty swallowing, feeling full early, excessive flatus, incontinent of stools, Vomiting blood/hematemesis, Blood in stool, loose stools, Black,tarry stools, nausea/dyspepsia, pain with swallowing, vomiting or other Musc Musculoskeletal: Positive for abnormal gait, joint pain, back pain, muscle weakness, stiffness, Arthritis, sciatica, leg pain with exertion and other (Uses cane.) Skin Skin: No yellowing of the eye or itchy eyes Neuro Neurology: Positive for abnormal gait, weakness and headache(s) Psych Psychiatric: No anxiety and No depression Endo Endocrine: No fatigue Aller/Imm Allergy/Immunologic: No itchy eyes Regulo/Lymp Hematologic/Lymphatic: No easy bleeding or easy bruising Exam Const General: cooperative, no acute distress and well developed Nutritional Appearance: average body habitus Orientation: alert, awake and oriented x3 HENMT Head: normocephalic and atraumatic Nose: external nose normal Face and sinus: normal facial exam Mouth: moist mucous membranes Eyes Pupils: PERRL EOM: EOM intact bilaterally Neck Neck: normal visual inspection, no meningeal signs and trachea midline Carotids: no bruits Chest Chest palpation & inspection: normal inspection of the chest Resp Effort & Inspection: normal respiratory effort and symmetric chest movement Auscultation: Bilateral: Clear to Auscultation Cardio Palpation: normal PMI Rate: regular rate Rhythm: regular rhythm Heart Sounds: S1 normal and S2 normal GI Auscultation: normal bowel sounds Percussion: normal to percussion Palpation: soft, no hepatosplenomegaly and no guarding Other: Mild tenderness in epigastric region on deep palpation. Liver not enlarged. Spleen not palpable. No rebound tenderness in abdomen. No guarding or rigidity. No palpable mass. No clinically palpable ascites, negative fluid thrill/shifting dullness. General: bimanual renal exam normal bilaterally, bladder normal to inspection and bladder normal to palpation Musc Musculoskeletal: No joint tenderness, joint redness, joint warmth or decreased range of motion Thoracic/Lumbar Spine: thor and lumb spine abnorm to inspection Skin General: rashes and/or lesions noted, turgor normal and no erythema Wounds: wound noted Neuro General: patient alert, patient awake, patient oriented x3 and no focal motor deficits Speech: speech normal Motor: muscle tone normal throughout Extrem General: normal exam except as noted Psych Appearance: grossly normal Mood: congruent mood Affect: normal affect Attitude: cooperative Quality Reporting Tobacco Screening ([facility] 138) Smoking Status: Former smoker Assessment and Plan Assessment and Plan (1) Hereditary hemochromatosis: Status: Chronic Comment: homozygous for C282Y Plan: Patient follows Dr. Hawley in hematology clinic for therapeutic phlebotomy. Last ferritin 587 in May 2023. Iron saturation 48.3%, serum iron 152. Repeat iron profile shows serum iron 121, TIBC 321 normal. Iron saturation 37.7%. Transferrin 272 and ferritin 385. Total bilirubin normal. ALT 65 rest liver chemistry normal. Liver biopsy again reviewed with the patient. Lobular architecture maintained. Shows 4+ iron deposition. Obvious cirrhosis not seen. He might have F1 F2 liver fibrosis. Serum ferritin and transferrin saturation is well-controlled. Transferrin saturation goal less than 50% and ferritin less than 500. Ultrasound imaging shows increased liver echogenicity with fatty infiltration otherwise biliary ducts, GB wall thickness portal flow normal. Normal CBD. Multiple gallstones. (2) Diarrhea: Status: Chronic Plan: The patient has diarrhea during previous visit in June 2023. There is suspicion of clinical IBS with diarrhea. Differential diagnosis usually celiac disease, IBD and infectious cause giardiasis and pancreatic insufficiency should be ruled out before diagnosis of IBS. His workup in February and June 2023 shows this to neutral flat normal, total fat normal and repeat not reportable, stool pancreatic elastase 122, low and 500 normal. Ultrasound liver right upper quadrant shows normal size of head body and tail of pancreas with normal echogenicity. No pancreatic mass or cyst. Celiac panel negative Stool for calprotectin normal In the meantime he also had CT abdomen with IV contrast and oral contrast on 10/22/2019 that shows fatty liver and gallstones. Small hiatus hernia. Normal spleen and pancreas. Normal small assessment testing and normal colon. Management plan CT abdomen did not show any bowel issues or pancreatic structural problem. During previous study, stool test ordered enteric bacteriology panel, stool for C. difficile ordered, elastase test were ordered but not done. Continue conservative methods including dietary habits suggested like early breakfast, avoid hot beverages in empty stomach, early dinner and staying upright for 3 to 4 hours after supper. Change omeprazole to pantoprazole. Schedule EGD with Dr. Guerin. (3) Hypertriglyceridemia: Status: Chronic Plan: The patient had resumed fenofibrate lower dose 45 mg daily after he had started. Diarrhea came back but better than before. Advised to repeat fasting profile Last lipid profile in September 2023 shows triglyceride 695, total cholesterol 227, LDL VLDL could not be calculated because of high triglyceride. Advised to repeat fasting profile. May be I will consider stopping fenofibrate and considering Vascepa Orders: Orders Fecal Fat, Qualitative 1 Month R19.7 - Diarrhea, unspecified Pancreatic Elastase, Fecal 1 Month R19.7 - Diarrhea, unspecified Lipase 1 Month R19.7 - Diarrhea, unspecified Comprehensive Metabolic Profil 1 Month R19.7 - Diarrhea, unspecified CBC W/Diff, Automated 1 Month I10 - Essential (primary) hypertension, R19.7 - Diarrhea, unspecified AFP, Tumor Marker 1 Month E83.110 - Hereditary hemochromatosis, R19.7 - Diarrhea, unspecified Lipid Profile 1 Month E78.5 - Hyperlipidemia, unspecified, I10 - Essential (primary) hypertension, R19.7 - Diarrhea, unspecified Prothrombin Time w/INR 1 Month E83.110 - Hereditary hemochromatosis, R19.7 - Diarrhea, unspecified CRP 1 Month R19.7 - Diarrhea, unspecified Ferritin 1 Month E83.110 - Hereditary hemochromatosis, R19.7 - Diarrhea, unspecified Transferrin 1 Month E83.110 - Hereditary hemochromatosis, R19.7 - Diarrhea, unspecified ANCA 1 Month R19.7 - Diarrhea, unspecified Iron+Iron Binding Capacity 1 Month R19.7 - Diarrhea, unspecified Medications: New pantoprazole 40 mg PO QAM 1 month 30 tabs 4RF acid reflux Discontinued omeprazole Discontinued Reason: Discontinued by PCP/other physicians 40 mg PO DAILY Coding Level of Care Code Established Pt Off vis,est,level 4 Patient Type Established History Detailed Exam Detailed Medical Decision Making Moderate Complexity Diagnoses Hereditary hemochromatosis E83.110 Diarrhea R19.7 Hypertriglyceridemia E78.1 I have examined the patient and the H&P has been reviewed. There are no clinical changes since date of exam.
--- NOTE | 2024-02-12 08:52 | OP.EGD_ITS ---
Patient Name: King Edmondson Procedure Date: 02/12/2024 8:37 AM Date of : 1965 Age: 58 Procedure: Upper GI endoscopy Indications: Heartburn, Follow-up of Holcomb's esophagus Providers: Guanaco Guerin DO Referring MD: Zeinab Dumont Medicines: Monitored Anesthesia Care Patient Profile: This is a 58 year old male. Refer to note in patient chart for documentation of history and physical. Patient has symptoms of chronic epigastric abdominal pain and acute heartburn. Complications: No immediate complications. Procedure: Pre-Anesthesia Assessment: - Prior to the procedure, a History and Physical was performed, and patient medications and allergies were reviewed. The patient is competent. The risks and benefits of the procedure and the sedation options and risks were discussed with the patient. All questions were answered and informed consent was obtained. Patient identification and proposed procedure were verified by the physician in the pre-procedure area. Mental Status Examination: alert and oriented. Airway Examination: normal oropharyngeal airway and neck mobility. Respiratory Examination: clear to auscultation. CV Examination: normal. Prophylactic Antibiotics: The patient does not require prophylactic antibiotics. Prior Anticoagulants: The patient has taken no anticoagulant or antiplatelet agents except for NSAID medication. ASA Grade Assessment: II - A patient with mild systemic disease. After reviewing the risks and benefits, the patient was deemed in satisfactory condition to undergo the procedure. The anesthesia plan was to use monitored anesthesia care (MAC). Immediately prior to administration of medications, the patient was re-assessed for adequacy to receive sedatives. The heart rate, respiratory rate, oxygen saturations, blood pressure, adequacy of pulmonary ventilation, and response to care were monitored throughout the procedure. The physical status of the patient was re-assessed after the procedure. After obtaining informed consent, the endoscope was passed under direct vision. Throughout the procedure, the patient's blood pressure, pulse, and oxygen saturations were monitored continuously. The Endoscope was introduced through the mouth, and advanced to the second part of duodenum. The upper GI endoscopy was accomplished without difficulty. The patient tolerated the procedure well. Scope In: 8:46:16 AM Scope Out: 8:48:52 AM Total Procedure Duration Time 0 hours 2 minutes 36 seconds Findings: The Z-line was irregular and was found 40 cm from the incisors. Biopsies were taken with a cold forceps for histology. Verification of patient identification for the specimen was done. Estimated blood loss was minimal. A large amount of a phytobezoar was found in the entire examined stomach. No gross lesions were noted in the duodenal bulb. Impression: - Z-line irregular, 40 cm from the incisors. Biopsied. - A large amount of a phytobezoar in the stomach. - No gross lesions in the duodenal bulb. Recommendation: - Discharge patient to home. - Resume previous diet. - Continue present medications. - Await pathology results. - Gastric emptying study Procedure Code(s): --- Professional --- 20881, Esophagogastroduodenoscopy, flexible, transoral; with biopsy, single or multiple CPT copyright 2021 [employer]. All rights reserved. The codes documented in this report are preliminary and upon jewelry enameler review may be revised to meet current compliance requirements. Guanaco Guerin DO 02/12/2024 8:52:28 AM This report has been signed electronically. Number of Addenda: 0 Note Initiated On: 02/12/2024 8:37 AM
--- NOTE | 2024-02-12 08:53 | OP.CCLET_ITS ---
02/12/2024 Zeinab Dumont [facility] [address] [place] [address] Re : Upper GI endoscopy procedure for King Edmondson Dear Dr. Dumont This procedure was performed on Monday, February 12, 2024. My impressions and recommendations are as follows: Impressions : - Z-line irregular, 40 cm from the incisors. Biopsied. - A large amount of a phytobezoar in the stomach. - No gross lesions in the duodenal bulb. Recommendations : - Discharge patient to home. - Resume previous diet. - Continue present medications. - Await pathology results. - Gastric emptying study My findings are described in the full procedure note, which is enclosed. If I can be of further assistance, please feel free to contact me at . Sincerely, Guanaco Guerin, 02/12/2024 8:52:28 AM This report has been signed electronically.
[2024-02-12 08:55] VITALS: BP 106/74; BP 134/80; PULSE 72; RESP 16; TEMP 36.9; O2SAT 99
[2024-02-12 09:00] VITALS: BP 104/74; BP 134/80; PULSE 67; RESP 16; O2SAT 96
[2024-02-12 09:04] VITALS: BP 116/71; BP 134/80; PULSE 67; RESP 16; TEMP 36.3; O2SAT 97
[2024-02-12 09:18] VITALS: BP 134/80
== END 2024-02-12 09:24 | disposition home or self-care (01) ==
LOC: EN 07:18 → AC 07:19
PROVIDERS: PCP Internal Medicine; Referring Provider Internal Medicine; Visit Provider Internal Medicine Gastroenterology
PROC: 0DJ08ZZ Inspection of Upper Intestinal Tract, Via Natural or Artificial Opening Endoscopic (ICD-10-PCS; CPT 43235; principal; 2024-02-12 08:25)
DX: E83.110 Hereditary hemochromatosis (principal); K52.9 Noninfective gastroenteritis and colitis, unspecified; I10 Essential (primary) hypertension; Z79.899 Other long term (current) drug therapy; E78.1 Pure hyperglyceridemia; K22.89 Other specified disease of esophagus
CPT/HCPCS: 43239; 88305; 88313; J7120

== ENCOUNTER → 2024-03-06 | Outpatient (CLI) | payer MEDICARE, SELFPAY ==
--- NOTE | 2024-03-06 10:07 | NM_ITS ---
CLINICAL: 58-year-old male with history of abdominal pain-bloating. SEMI-SOLID PHASE 99m Tc SULFUR COLLOID GASTRIC EMPTYING STUDY COMPARISON: None available FINDINGS: The patient was administered 1.0 mCi of 99m Tc sulfur colloid mixed with oatmeal and consumed per os. Image acquisitions in the anterior-posterior projections were obtained for 60 minutes. There is prompt visualization of the stomach. There is no gastroesophageal reflux identified. Zero order kinetics are maintained throughout the duration of the acquisitions. The T ? raw data emptying was calculated to be 9.63 minutes, (Normal: 12-56 minutes). NM/Gastric Emptying Study IMPRESSION: 1. There is accelerated semi-solid phase gastric emptying compared to normal controls. (Cassidy et al, J Nucl Med Tech 38: 186, 2010). Electronically Signed: Lee Nevarez DO at 13:39 EDT ,
== END | disposition home or self-care (01) ==
LOC: NM 10:07
PROVIDERS: PCP Internal Medicine; Referring Provider Internal Medicine Gastroenterology; Visit Provider Internal Medicine Gastroenterology
DX: R14.0 Abdominal distension (gaseous) (principal)
CPT/HCPCS: 78264; A9541

== ENCOUNTER 2024-05-26 09:18 | Outpatient (RCR) | payer SELFPAY | END 2024-05-30 23:59 | LOC: NS 09:18 | PROVIDERS: PCP Internal Medicine; Referring Provider Internal Medicine; Visit Provider Internal Medicine | DX: Z71.3 Dietary counseling and surveillance (principal); E66.3 Overweight; E78.1 Pure hyperglyceridemia; Z68.28 Body mass index [BMI] 28.0-28.9, adult | CPT/HCPCS: 97802 ==

== ENCOUNTER → 2024-06-09 | Outpatient (CLI) | payer MEDICARE, SELFPAY ==
--- NOTE | 2024-06-09 13:24 | CT_ITS ---
STUDY: CT ABDOMEN WITH AND WITHOUT CONTRAST REASON FOR EXAM: Male, 58 years old. R/O HCC, high risk of HCC RADIATION DOSAGE (If Supplied By Facility): CTDIvol = ( 21.46 ) mGy, DLP = ( 1905.50 ) mGycm TECHNIQUE: Transaxial images were obtained pre and post I.V. administration of IV 100mL Isovue-370, and without oral contrast. Sagittal and coronal images were reconstructed. Individualized dose optimization techniques were used for this CT. COMPARISON: Comparison is made with prior study dated April 21, 2024. FINDINGS: The visualized lung bases are unremarkable. The visualized portions of the heart are within normal limits. There is decreased attenuation of the liver consistent with steatosis. Mild hepatomegaly. Multiple small layering gallstones are seen along the dependent portion of the gallbladder lumen. Normal spleen. Normal pancreas. Normal bilateral adrenal glands. Normal right kidney. Normal left kidney. Normal visualized stomach. Normal small intestine. Normal colon. The appendix is visualized and appears normal. There is scattered atherosclerotic calcification of the abdominal aorta, without a demonstrated aneurysm. Normal inferior vena cava. Normal retroperitoneum. Nonspecific increased markings in the mesenteric fat in the root of the mesentery with small lymph nodes. This is a nonspecific finding. This is unchanged. Normal abdominal wall. Disc space narrowing at the L5-S1 level. CT/Abdomen W/WO IV Contrast IMPRESSION: Mild hepatomegaly and diffuse fatty infiltration of the liver. Multiple small layering gallstones along the dependent portion of the gallbladder lumen. Stable increased density in the root of the mesenteric fat with multiple small lymph nodes. Electronically Signed: Horacio Sánchez MD at 14:05 EDT ,
== END | disposition home or self-care (01) ==
LOC: CT 13:23
PROVIDERS: PCP Internal Medicine; Referring Provider Internal Medicine; Visit Provider Internal Medicine
DX: R19.7 Diarrhea, unspecified (principal); I10 Essential (primary) hypertension; E78.1 Pure hyperglyceridemia; E83.110 Hereditary hemochromatosis
CPT/HCPCS: 74170; Q9967

== ENCOUNTER 2024-07-10 09:30 | Outpatient (RCR) | payer MEDICARE, SELFPAY ==
--- NOTE | 2024-05-22 09:50 | HP.PTEVAL_ITS ---
Patient's Visit Information Visit Information Visit Information: IFTIKHAR FLEMING is a 58 year old M referred to Physical Therapy by JOSE ROQUE with a diagnosis of cervical fusion 11/2023. Date of Evaluation: 05/22/24 Physical Therapist: Edwin Grace, DPT, OCS, CSCS Visit Plan Frequency: 1x/Week Duration: 4-6 Weeks Plan: weekly(pt choice) for 4-6 IE: HEP of bridging 3x10 adn c/s supine iso retraction 2x10 and recumbent interval training 15 min given today Please instruct in gym based core stregnth and LE, postural strength to I each time adding 4-5 exericses, wrok on weight shift balance with ex instruct, work on moving to WB CV ex ellitpical if tolerated . End up with final gym program for 3x/week membership Subjective Subjective: c456 fusion in November. Symptoms prior were balance issues and arm and hand weakness. Weakness may require c23 surgical intervention. Also had back discectomy in 2012 and may need another one. That gives him neuropathy in Legs and balance. Surgeon wanted to work on neck and core strength. Surgery helped meuropathy in legs. L leg still gives issues with pinched nerves. Pain in neck is gone, arm and weakness but only R achyness distally and there prior to surgery . Balance is better since surgery, fell one time since turning left and lost balance as L leg gave out, did not get hurt. Sleep is not bad nowadays, started cpap 10 months ago. Not employed, on disability due to spine issues. 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 Does silver sneakers but not lately. Basic ADLs dress, bathroom, shower all I. Steps at home fatigues easily and inclines of driveway hurts legs. Pain arms achy: Pain Intensity (Out of 10): 0 Pain Intensity Range: 0 and 7 Objective Objective: Walks into PT I, slow and short steps avoiding FW weight shift and lean butI.Trasnfers slow and careful but I. steps recirpocal with one rail up and down. cervical aROM 40 ext, 50 rotation B, no pain. head os protruded adn lacks full retraction. Incisions anterior and healed well . UE AROM WFL but slow end range of elevation. LB AROM ext max limited and does not like to ext in WB but will slightly extend in prone with just slight pain central, PA pressure is painful centrally throughout lumbar. SB is min limited and no pain, flexion is slow and mod limited.Hands help back up. reflexes 1/3 bi and tri and 2/3 patella and achillesB Sensation UE and LE WNL to gross light touch. strength is 4 in ankles, 4 in knees, 3 in hip ext adn abd, 3+ in flexion with core weakness. UE are 4-/5 without pain but scapula wing slightly B. Balance/Special Test Scores Functional Gait Assessment Score: 25 % Disability: 16.6700 Oswestry Neck Score: 23 30 Second Chair Rise Test Seconds: 12 Goals Goal 1:: I appropriate gym program to limit future spinal problems Goal Time Frame: 4-6 Weeks Goal 2:: FGA to llimit fall risk Goal Time Frame: 4-6 Weeks Goal 3:: Pt feel 75% better in overall pain and balance. Goal Time Frame: 4-6 Weeks Goal 4:: Neck oswestry 8 or better Goal Time Frame: 4-6 Weeks Rehabilitation Potential Physical Therapy Diagnosis: imbalance and weakness after multiple spinal problems limiting fucniton Rehabilitation Potential: Fair Anticipated Interventions Patient/Client Instruction: Educate patient on: Condition and Plan of Care For the Purpose of:: To decrease pain, To increase ROM, To improve nutrient delivery to tissue, To improve muscle performance and motor function, To increase tolerance to activity/condition/position and To improve gait and locomotor functions Therapeutic Exercise to Include: Strength training, Balance training, Postural training, Dynamic Lumbar Stabilization and Scapular Strength/Stabilization For the Purpose of:: To decrease pain, To increase ROM, To improve nutrient delivery to tissue, To improve muscle performance and motor function, To increase tolerance to activity/condition/position, To improve ability of physical actions for home/community/work/leisure and To improve gait and locomotor functions Text: Thank you for the opportunity to evaluate your patient. For Medicare and Medicare HMO plans, please review the plan of care and approve it. It will need to be FAXED BACK to us at [phone] for Medicare purposes. For Medicare only, by signing this I certify the plan of care. Please let me know if there are questions or concerns regarding this plan of care. Physician Si gnature: Date:
--- NOTE | 2024-07-10 09:51 | HP.PTDCSUM ---
Discharge Summary D/C summary: It has been my pleasure to treat IFTIKHAR FLEMING referred by JOSE ROQUE, with the diagnosis of cervical fusion 11/2023 for a total of 6 visit(s). Discharge Date: 07/10/24 Please see the following information for a summary of their discharge status. Subjective Subjective: Saw doctor a couple days ago and thinks spinal cord is still bruised at neck and will heal. needs LB surgery and will revisit in september. Is doing workout in gym and takes it easy sometimes. No neck pain, hands can still feel weak and this is likely due to the bruising of spinal cord. LBP L sided pain and into L buttock and down leg intermittent with walking immediately, sitting feels better. Lying down is best. Has done pulling and pushing exercises. Neck better and stronger, LB no change. Pain arms achy: Pain Intensity (Out of 10): 0 L leg pain: Pain Intensity (Out of 10): 2 Overall Improvement % Improvement: 20 Objective Objective/Function: cervical AROM 50 B rotation and 45 ext, tightn but no pain. UE AROM WFL. FGa is +2 from initial. gait is still L antalgic and not improving. Pt can continue I gym program from this point. Goals Goal 1:: I appropriate gym program to limit future spinal problems Goal Progress: Goal Met Goal 2:: FGA to llimit fall risk Goal Progress: Progressing Goal 3:: Pt feel 75% better in overall pain and balance. Goal Progress: Not Progressing Goal 4:: Neck oswestry 8 or better Goal Progress: Progressing Plan Plan: d/c D/C Information Discharge Comments: Pt to continue in gym I and possibly seek lumbar surgery after holidays. d/c sentence: If there are questions or concerns regarding this patient's physical therapy, please feel free to call me at [phone]. Thank you for the referral of this patient. Sincerely, Edwin Grace, DPT, OCS, CSCS Balance/Gait/Functional tests Balance/Special Test Scores Functional Gait Assessment Score: 27 % Disability: 10.0000 Oswestry Neck Score: 17 30 Second Chair Rise Test Seconds: 12 Improvement % Improvement: 20
== END 2024-07-10 19:00 | disposition home or self-care (01) ==
LOC: PT 09:30
PROVIDERS: PCP Internal Medicine
DX: Z98.1 Arthrodesis status (principal)
CPT/HCPCS: 97110; 97161

== ENCOUNTER → 2024-10-15 | Outpatient (CLI) | payer MEDICARE, SELFPAY ==
--- NOTE | 2024-10-15 08:51 | US_ITS ---
STUDY: ABDOMINAL ULTRASOUND - RIGHT UPPER QUADRANT; ELASTOGRAPHY REASON FOR VISIT: Male, 58 years old. NAFLD TECHNIQUE: Ultrasound evaluation of the right upper quadrant was performed with real-time and static augustin-scale imaging. Point quantification shear wave elastography was performed ([employer]). TECHNICAL QUALITY: Adequate. COMPARISON: Comparison is made with prior study dated January 19, 2023. FINDINGS: Liver: The liver measures 17.2 cm. There is increased echogenicity consistent with fatty infiltration. The bile ducts are within normal limits. There is hepatic color flow. The direction of portal flow is hepatopetal. There is no demonstrated mass lesion. Median liver stiffness measured 9.5 kPa. Gallbladder: Normal distended gallbladder. The gallbladder wall measures 2 mm. There is a negative sonographic Santos''s sign. There is no pericholecystic fluid. There are multiple echogenic structures within the gallbladder, consistent with multiple gallstones. Common Bile Duct (C.B.D.): The common bile duct measures 3 mm. Pancreas: There is normal echogenicity of the visualized pancreas. There is no demonstrated pancreatic mass or cyst. Right Kidney: Normal size of the right kidney. The right kidney measures 12.5 cm x 6.5 cm x 6 cm. Normal renal cortex. The right cortex measures 1.7 cm. There is no demonstrated renal mass or cyst. There is no right hydronephrosis. IMPRESSION: 1. Liver stiffness measures 9.5 kPa compatible with F2-F3 (Mild to moderate liver fibrosis) Metavir score. 2. Multiple gallstones. Electronically Signed: Horacio Sánchez MD at 11:38 EST , STUDY: ABDOMINAL ULTRASOUND - LEFT UPPER QUADRANT REASON FOR EXAM: Male, 58 years old. NAFLD, HH -- including spleen TECHNIQUE: Transabdominal ultrasound was performed with real-time and static augustin scale imaging. TECHNICAL QUALITY: Adequate. COMPARISON: None. FINDINGS: Spleen: Normal size of the spleen. The spleen measures 12.2 cm x 6.6 cm x 5.1 cm. US/ABD Limited w/ Elastography IMPRESSION: No evidence of splenomegaly. Electronically Signed: Horacio Sánchez MD at 11:38 EST ,
[2024-10-15 09:16] LABS: Absolute Lymphocyte Count 1.77 X10^3/uL (0.83-4.51); Absolute Neutrophil Count 4.7 X10^3/uL (2.0-7.7); Basophil# 0.05 X10^3/uL; Basophil% 0.7 % (0-1); Eosinophil# 0.24 X10^3/uL; Eosinophils% 3.2 % (0-5); Hematocrit 48.1 % (40-54); Lymphocyte # 1.77 X10^3/ul (0.83-4.51); Lymphocyte % 23.9 % (19-41); Mean Corp Hgb Conc 35.3 g/dL (32-36); Mean Corpuscular Hgb 31.4 pg (27.0-32.0); Mean Corpuscular Volume 88.9 fL (80-94); Monocyte# 0.63 X10^3/uL; Monocyte% 8.5 % (0-10); NRBC Flagged by Analyzer 0 % (0-5); Neutrophil # 4.69 X10^3/uL (2.7-7.7); Neutrophil % 63.2 % (47-70); Platelet Count 237 K/mm3 (150-450); RBC Distribution Width CV 12.1 % (11.6-14.6); RBC Distribution Width SD 39.4 fl (35.1-43.9); Red Blood Count 5.41 M/mm3 (4.6-6.2); White Blood Count 7.4 K/mm3 (4.4-11.0)
[2024-10-15 09:33] LABS: Prothrombin Time (Protime)PT. 12.9 SECONDS (11.7-14.9)
[2024-10-15 10:19] LABS: ALB/GLOB Ratio 1.2 RATIO (0.9-2.4); AST(SGOT) 30 U/L (15-37); Alanine Aminotransfer ALT/SGPT 53 U/L (16-61); Alkaline Phosphatase 85 U/L (45-117); Anion Gap 9 (5-15); BUN 14 mg/dL (7-18); BUN/Creat Ratio 18.1 RATIO (10-20); CRP < 2.90 mg/L (0.0-3.0); Calcium,Total 9.1 mg/dL (8.5-10.1); Chloride 101 mmol/L (98-107); Cholesterol 223 mg/dL (200); Creatinine, Serum 0.78 mg/dL (0.70-1.30); EST Glomerular Filtration Rate 110 mL/min (>60); Est Glom Filt Rate - Afr Amer 133 mL/min (>60); Ferritin 26 ng/mL (26-388); Globulin 3.4 g/dL (2.2-4.2); Glucose 159 mg/dL (74-106); High Density Lipoprotein 40 mg/dL; Potassium 3.9 mmol/L (3.5-5.1); Protein, Total 7.4 g/dL (6.4-8.2); Sodium Level 134 mmol/L (136-145); T4 Free Direct 0.79 ng/dL (0.76-1.46); Triglycerides 279 mg/dL; Very Low Density Lipoprotein 56 mg/dL (5-40)
[2024-10-15 11:11] LABS: Hemoglobin A1c 6.4 % (3.8-5.6)
[2024-10-16 04:07] LABS: AFP, Tumor Marker 1.9 ng/mL (0.0-8.4); Haptoglobin 93 mg/dL (29-370); Transferrin 257 mg/dL (177-329)
== END | disposition home or self-care (01) ==
PROVIDERS: PCP Internal Medicine; Referring Provider Internal Medicine; Visit Provider Internal Medicine
DX: E83.110 Hereditary hemochromatosis (principal); E11.8 Type 2 diabetes mellitus with unspecified complications; R19.7 Diarrhea, unspecified; E78.5 Hyperlipidemia, unspecified; N52.9 Male erectile dysfunction, unspecified
CPT/HCPCS: 36415; 76705; 76981; 80053; 80061; 82105; 82728; 83010; 83036; 84439; 84443; 84466; 85025; 85610; 86140

== ENCOUNTER → 2024-10-28 | Outpatient (CLI) | payer MEDICARE, SELFPAY ==
--- NOTE | 2024-10-28 11:47 | US_ITS ---
PROCEDURE: TESTICULAR WITH ARTERIAL FLOW REASON FOR EXAM: Small testes; rotatory hemochromatosis; pronates disease; status post cecectomy. TECHNIQUE: Phillips scale imaging of the scrotal contents. COMPARISON: None. FINDINGS: RIGHT testicle: 3.8 x 3.0 x 2.4 cm. Homogeneous echotexture. No intratesticular mass. Right epididymis: Right epididymal head 7 mm cyst. Normal echogenicity and vascular flow. Tubular e ctasia status post vasectomy. LEFT testicle: 4.0 x 3.0 x 1.9 cm. Crescentic hypoechoic 4 x 3 x 9 mm region. Left epididymis: Left epididymal head 6 mm cyst. Normal echogenicity and vascular flow. Other findings: No hydrocele or large varicocele. US/Testicular with Arterial Flow IMPRESSION: Left testicle crescentic hypoechoic region which may represent prior vascular c ompromise. Short interval follow-up ultrasound is recommended. Right tubular ectasia. Reading Location: [id number]
== END | disposition home or self-care (01) ==
LOC: US 11:46
PROVIDERS: PCP Internal Medicine; Referring Provider Internal Medicine; Visit Provider Internal Medicine
DX: N52.9 Male erectile dysfunction, unspecified (principal); E83.110 Hereditary hemochromatosis; N48.6 Induration penis plastica; K75.81 Nonalcoholic steatohepatitis (NASH)
CPT/HCPCS: 76870; 93976

== ENCOUNTER → 2024-12-03 | Outpatient (CLI) | payer MEDICARE, SELFPAY | END | disposition home or self-care (01) | LOC: SL 11:44 | PROVIDERS: PCP Internal Medicine; Referring Provider Nurse Practitioner Acute Care; Visit Provider Nurse Practitioner Acute Care | DX: Z00.00 Encounter for general adult medical examination without abnormal findings (principal) ==

== ENCOUNTER → 2024-12-09 | Outpatient (CLI) | payer MEDICARE, SELFPAY | END | disposition home or self-care (01) | LOC: PSN 08:01 | PROVIDERS: PCP Internal Medicine; Referring Provider Internal Medicine Cardiovascular Disease; Visit Provider Internal Medicine Cardiovascular Disease | DX: R00.2 Palpitations (principal) | CPT/HCPCS: 93225; 93226 ==

== ENCOUNTER → 2024-12-22 | Outpatient (CLI) | payer MEDICARE, SELFPAY ==
[2024-12-22 14:52] LABS: Amphetamine Urine NEGATIVE (<1000 ng/mL); Barbiturate Urine NEGATIVE (< 200 ng/mL); Benzodiazepine Urine PRESUMPTIVE POSITIVE (< 200 ng/mL); Buprenorphine Urine NEGATIVE (< 200 ng/mL); Cocaine Urine NEGATIVE (< 300 ng/mL); Fentanyl, Urine NEGATIVE; Methadone Urine NEGATIVE (< 300 ng/mL); Opiates Urine NEGATIVE (< 300 ng/mL); Oxycodone, Urine NEGATIVE (< 100 ng/mL); PCP Urine NEGATIVE (< 25 ng/mL); THC Urine PRESUMPTIVE POSITIVE (< 50 ng/mL)
== END | disposition home or self-care (01) ==
PROVIDERS: PCP Internal Medicine; Referring Provider Anesthesiology; Visit Provider Anesthesiology
DX: F11.20 Opioid dependence, uncomplicated (principal)
CPT/HCPCS: 80307

== ENCOUNTER → 2025-01-07 | Outpatient (CLI) | payer MEDICARE, SELFPAY ==
[2025-01-07 16:07] LABS: Amphetamine Urine NEGATIVE (<1000 ng/mL); Barbiturate Urine NEGATIVE (< 200 ng/mL); Benzodiazepine Urine NEGATIVE (< 200 ng/mL); Buprenorphine Urine NEGATIVE (< 200 ng/mL); Cocaine Urine NEGATIVE (< 300 ng/mL); Fentanyl, Urine NEGATIVE; Methadone Urine NEGATIVE (< 300 ng/mL); Opiates Urine NEGATIVE (< 300 ng/mL); Oxycodone, Urine NEGATIVE (< 100 ng/mL); PCP Urine NEGATIVE (< 25 ng/mL); THC Urine NEGATIVE (< 50 ng/mL)
== END | disposition home or self-care (01) ==
LOC: LAB 12:42
PROVIDERS: PCP Internal Medicine; Referring Provider Anesthesiology; Visit Provider Anesthesiology
DX: F11.20 Opioid dependence, uncomplicated (principal)
CPT/HCPCS: 80307

== ENCOUNTER → 2025-02-15 | Outpatient (CLI) | payer MEDICARE, SELFPAY ==
[2025-02-15 08:16] LABS: Absolute Lymphocyte Count 2.07 X10^3/uL (0.83-4.51); Absolute Neutrophil Count 4.9 X10^3/uL (2.0-7.7); Basophil# 0.04 X10^3/uL; Basophil% 0.5 % (0-1); Eosinophil# 0.23 X10^3/uL; Eosinophils% 2.9 % (0-5); Hematocrit 44.9 % (40-54); Hemoglobin 15.8 g/dL (13.0-16.5); Lymphocyte # 2.07 X10^3/ul (0.83-4.51); Lymphocyte % 25.7 % (19-41); Mean Corp Hgb Conc 35.2 g/dL (32-36); Mean Corpuscular Hgb 32.2 pg (27.0-32.0); Mean Corpuscular Volume 91.4 fL (80-94); Mean Platelet Vol. 8.8 fl (6.2-12.0); Monocyte# 0.83 X10^3/uL; Monocyte% 10.3 % (0-10); NRBC Flagged by Analyzer 0 % (0-5); Neutrophil # 4.85 X10^3/uL (2.7-7.7); Neutrophil % 60.2 % (47-70); Platelet Count 206 K/mm3 (150-450); RBC Distribution Width CV 12.8 % (11.6-14.6); RBC Distribution Width SD 42.8 fl (35.1-43.9); Red Blood Count 4.91 M/mm3 (4.6-6.2); White Blood Count 8.1 K/mm3 (4.4-11.0)
[2025-02-15 08:48] LABS: ALB/GLOB Ratio 1.7 RATIO (0.9-2.4); AST(SGOT) 27 U/L (<=37); Alanine Aminotransfer ALT/SGPT 25 U/L (<=46); Albumin, Serum 4.6 g/dL (3.5-5.0); Alkaline Phosphatase 71 U/L (40-129); Anion Gap 10 (5-15); BUN 20 mg/dL (4-19); BUN/Creat Ratio 26.4 RATIO (10-20); CRP 4.69 mg/L (0.0-3.0); Calcium,Total 9.5 mg/dL (7.6-11.0); Carbon Dioxide 26.5 mmol/L (21.0-32.0); Chloride 97 mmol/L (98-108); Cholesterol 216 mg/dL (<=200); Creatinine, Serum 0.77 mg/dL (0.70-1.20); EST Glomerular Filtration Rate 104 (>60); Globulin 2.6 g/dL (2.2-4.2); Glucose 134 mg/dL (70-99); High Density Lipoprotein 43 mg/dL; Low Density Lipoprotein Calc. 150 mg/dL; Potassium 4.4 mmol/L (3.3-5.1); Protein, Total 7.2 g/dL (5.9-8.4); Sodium Level 133 mmol/L (133-145); Total Bilirubin 0.41 mg/dL (0.00-1.30); Triglycerides 114 mg/dL; Very Low Density Lipoprotein 23 mg/dL (5-40); cholesterol:hdl ratio screen 4.99
[2025-02-15 09:46] LABS: Prothrombin Time (Protime)PT. 13.6 SECONDS (11.7-14.9)
== END | disposition home or self-care (01) ==
LOC: PAVLAB 08:03
PROVIDERS: PCP Internal Medicine; Referring Provider Internal Medicine; Visit Provider Internal Medicine
DX: K75.81 Nonalcoholic steatohepatitis (NASH) (principal); E83.110 Hereditary hemochromatosis; E78.1 Pure hyperglyceridemia
CPT/HCPCS: 80053; 80061; 85025; 85610; 86140

== ENCOUNTER → 2025-02-16 | Outpatient (CLI) | payer MEDICARE, SELFPAY ==
[2025-02-16 12:16] LABS: Hemoglobin A1c 6.1 % (<=5.6)
== END | disposition home or self-care (01) ==
LOC: LAB 11:06
PROVIDERS: PCP Internal Medicine; Referring Provider Internal Medicine; Visit Provider Internal Medicine
DX: R73.03 Prediabetes (principal)
CPT/HCPCS: 36415; 83036

== ENCOUNTER → 2025-05-17 | Outpatient (CLI) | payer MEDICARE, SELFPAY ==
--- NOTE | 2025-05-17 10:53 | RAD_ITS ---
PROCEDURE: SHOULDER MIN 2 VIEWS 05/17/2025 REASON FOR EXAM: BILATERAL SHOULDER PAIN TECHNIQUE: Four view right shoulder series and four view left shoulder series (combined dictation). COMPARISON: Left shoulder study 09/25/2021. RAD/Shoulder min 2 Views IMPRESSION: In the edge of imaging, prior lower cervical surgery is seen. Frlt-wj-[id number] degenerative changes of the visualized spine are seen. The right acromioclavicular joint demonstrates xzzb-at-nxbsxygh degenerative ch anges. Minimal right glenohumeral joint degenerative changes are noted. No acute fracture or dislocation is seen. The left acromioclavicular joint demonstrates moderate degenerative changes, pr ogressed since 2020. Minimal left glenohumeral joint degenerative changes are noted. No acute fracture or dislocation is seen. Reading Location: [place] [id number]
--- NOTE | 2025-05-17 11:00 | RAD_ITS ---
PROCEDURE: SHOULDER MIN 2 VIEWS 05/17/2025 REASON FOR EXAM: BILATERAL SHOULDER PAIN TECHNIQUE: Four view right shoulder series and four view left shoulder series (combined dictation). COMPARISON: Left shoulder study 09/25/2021. RAD/Shoulder min 2 Views IMPRESSION: In the edge of imaging, prior lower cervical surgery is seen. Nzgb-hx-yxtlbwcp degenerative changes of the visualized spine are seen. The right acromioclavicular joint demonstrates vuni-xl-xrsvroox degenerative ch anges. Minimal right glenohumeral joint degenerative changes are noted. No acute fracture or dislocation is seen. The left acromioclavicular joint demonstrates moderate degenerative changes, pr ogressed since 2020. Minimal left glenohumeral joint degenerative changes are noted. No acute fracture or dislocation is seen. Reading Location: [place] [id number]
== END | disposition home or self-care (01) ==
LOC: MTRAD 10:53
PROVIDERS: PCP Internal Medicine; Referring Provider Psychiatry & Neurology Neurology; Visit Provider Psychiatry & Neurology Neurology
DX: M25.511 Pain in right shoulder (principal); M25.512 Pain in left shoulder
CPT/HCPCS: 73030

== ENCOUNTER → 2025-08-02 | Outpatient (CLI) | payer MEDICARE, SELFPAY ==
[2025-08-02 09:18] LABS: Hematocrit 46.8 % (40-54); Hemoglobin 16.3 g/dL (13.0-16.5); Immature Granulocytes Count 0.130 X10^3/uL (0.0-0.0); Mean Corp Hgb Conc 34.8 g/dL (32-36); Mean Corpuscular Volume 91.9 fL (80-94); Mean Platelet Vol. 9.0 fl (6.2-12.0); NRBC Flagged by Analyzer 0 % (0-5); Platelet Count 224 K/mm3 (150-450); RBC Distribution Width CV 13.1 % (11.6-14.6); RBC Distribution Width SD 43.9 fl (35.1-43.9); Red Blood Count 5.09 M/mm3 (4.6-6.2); White Blood Count 8.9 K/mm3 (4.4-11.0)
[2025-08-02 09:26] LABS: Prothrombin Time (Protime)PT. 12.3 SECONDS (11.7-14.9)
[2025-08-02 10:11] LABS: Cholesterol 233 mg/dL (<=200); Ferritin 48 ng/mL (37-417); Low Density Lipoprotein Calc. 143 mg/dL; Triglycerides 273 mg/dL; Very Low Density Lipoprotein 55 mg/dL (5-40); cholesterol:hdl ratio screen 5.81
[2025-08-02 10:29] LABS: Iron Binding Capacity,Total 324 ug/dL (250-450)
[2025-08-02 10:37] LABS: AST(SGOT) 22 U/L (<=37); Alanine Aminotransfer ALT/SGPT 27 U/L (<=46); Albumin, Serum 4.6 g/dL (3.5-5.0); Alkaline Phosphatase 46 U/L (40-129); Anion Gap 9 (5-15); BUN 19 mg/dL (4-19); BUN/Creat Ratio 27.2 RATIO (10-20); Calcium,Total 9.5 mg/dL (7.6-11.0); Carbon Dioxide 28.2 mmol/L (21.0-32.0); Chloride 94 mmol/L (98-108); Globulin 2.6 g/dL (2.2-4.2); Glucose 128 mg/dL (70-99); Iron 126 ug/dL (65-175); Iron Binding Capacity,Unsat 198 ug/dL (228-428); Potassium 4.7 mmol/L (3.3-5.1)
[2025-08-02 10:38] LABS: Magnesium 2.2 mg/dL (1.5-2.2)
[2025-08-03 08:08] LABS: Transferrin 267 mg/dL (177-329)
== END | disposition home or self-care (01) ==
LOC: LAB 07:59
PROVIDERS: Student in an Organized Health Care Education/Training Program; PCP Internal Medicine; Referring Provider Internal Medicine; Visit Provider Internal Medicine
DX: K75.81 Nonalcoholic steatohepatitis (NASH) (principal); E83.110 Hereditary hemochromatosis; E78.5 Hyperlipidemia, unspecified; R00.2 Palpitations
CPT/HCPCS: 36415; 80053; 80061; 82728; 83540; 83550; 83735; 84443; 84466; 85025; 85610

== ENCOUNTER → 2025-08-27 | Outpatient (CLI) | payer MEDICARE, SELFPAY ==
--- NOTE | 2025-08-27 12:28 | CT_ITS ---
PROCEDURE: LIMITED CHEST CT CARDIAC ONLY 08/27/2025 REASON FOR EXAM: CHEST PAIN TECHNIQUE: Procedure Code: [id number] Modality: CT Procedure: LIMITED CHEST CT CARDIAC ONLY CONTRAST: None. One or more dose reduction techniques were used (e.g., Automated exposure control, adjustment of the mA and/or kV according to patient size, use of iterative reconstruction technique). RADIATION DOSE SUMMARY: CTDlvol: 12.19 mGy DLP: 219.42 mGycm COMPARISON: None FINDINGS: Coronary artery calcification. The heart is nonenlarged. Small benign-appearing mediastinal lymph nodes. Fibrocalcific scarring in the posterolateral aspect of the right lower lobe. CT/Limited Chest CT Cardiac Only IMPRESSION: Coronary artery calcification. Reading Location: [place] [address]
--- OUTSIDE RECORDS SUMMARY | 2025-08-27 12:35 | XMS RPT_ITS | CCD ---
Author Organization [facility] Care Team Providers Care Authorization Representative Name Role Phone PROVIDER, UNKNOWN Attending Unavailable PROVIDER, UNKNOWN Admitting Unavailable Miguel Angel SNOWDEN, Anastasiia Unavailable Dr. Mary Dumont Primary Care Provider Dr. Mary Dumont Attending Provider [phone]) Dr. Mary Dumont Referring Provider 1(330) CÉSAR Yen Attending Provider 1(330) Dr. Tirso Horne Attending Provider 1(330) Dr. Mary Dumont Primary Care Provider Dr. Mary Dumont Attending Provider 1(330) Dr. Mary Dumont Referring Provider 1(330) Dr. Leonardo Baez Attending Provider [phone] Dr. Tirso Horne Attending Provider 1(330) Anastasiia Haywood MD Unavailable [phone] Dr. Mary Dumont Primary Care Provider Dr. Mary Dumont Attending Provider 1(330) Dr. Mary Dumont Referring Provider 1(330) Dr. Leonardo Baez Attending Provider [phone] Dr. Tirso Horne Attending Provider 1(330) Dr. Mary Dumont Primary Care Provider Dr. Mary Dumont Referring Provider 1(330) Dr. Mary Dumont Attending Provider 1(330) Dr. Kenan Loya Attending Provider Dr. Mary Dumont Primary Care Provider Dr. Mary Dumont Referring Provider Dr. Kenan Loya Attending Provider Dr. Kenan Loya Referring Provider Dr. Mary Dumont Attending Provider Miguel Angel SNOWDEN, Anastasiia Unavailable Dr. Mary Dumont Referring Provider Dr. Guanaco Guerin Attending Provider Dr. Mary Dumont Primary Care Provider Dr. Mary Dumont Attending Provider Dr. Mary Dumont Referring Provider Dr. Sara Hawley Attending Provider Dr. Mary Dumont Primary Care Provider Dr. Kenan Loya Attending Provider Dr. Mary Dumont Attending Provider Cornell LOAD PLANNER, LOAD PLANNER-C Shamika Attending Provider Unavailable Primary Care Provider Dr. Blake Almonte Attending Provider Dr. Guanaco Guerin Other Provider [facility] LOAD PLANNER, LOAD PLANNER-C Iftikhar Jackson Attending Provider Dr. Mary Dumont Primary Care Provider Dr. Kenan Loya Attending Provider Dr. Kenan Loya Referring Provider Mary Dumont MD Primary Care Provider Dr. Mary Dumont Primary Care Provider Dr. Mary Dumont Referring Provider Dr. Markel Osborn Attending Provider Dr. Kenan Loya Attending Provider Dr. Mary Dumont Attending Provider [phone] Wyatt Briones Attending Provider Dr. Sara Hawley Attending Provider Cornell LOAD PLANNER, LOAD PLANNER-C Shamika Attending Provider Dr. Blake Goins Attending Provider Dr. Mary Dumont Primary Care Provider Dr. Mary Dumont Attending Provider Dr. Mary Dumont Referring Provider [phone] Wyatt Briones Attending Provider Dr. Sara Hawley Attending Provider Cornell LOAD PLANNER, LOAD PLANNER-C Shamika Attending Provider [phone] Dr. Blake Goins Attending Provider Dr. Harry Hill Attending Provider Dr. Kenan Loya Attending Provider Julia SNOWDEN, Mary Primary Care Provider [phone] MCCRARY, JOSE K Attending Unavailable MCCRARY, JOSE K Admitting Unavailable CONSULT, GENERAL MEDICINE Consulting Unavai jenny DUMONT, MARY Primary Care Unavailable JULIA, MARY Primary Care Unavailable MCCRARY, JOSE K Attending Unavailable MCCRARY, JOSE K Referring Unavailable MCCRARY, JOSE K Referring Unavailable RUMERKAYLIE R Attending Unavailable JULIA, MARY Primary Care Unavailable SELF, SELF Referring Unavailable MCCRARY, JOSE K Attending Unavailable JULIA, MARY Primary Care Unavailable SELF, SELF Referring Unavailable MCCRARY, JOSE K Attending Unavailable JULIA, MARY Primary Care Unavailable SELF, SELF Referring Unavailable RACHELL STOLL JR. Attending Unavailable JULIA, MARY Primary Care Unavailable MCCRARY, JOSE K Referring Unavailable RUMERKAYLIE R Attending Unavailable JULIA, MARY Primary Care Unavailable KAYLIE YI R Attending Unavailable NASREEN KAYLIE R Referring Unavailable JULIA, MARY Primary Care Unavailable JULIA, MARY Primary Care Unavailable TANIKA MCCLELLAN Referring Unavailable JOSE MCCRARY Attending Unavailable SELF, SELF Referring Unavailable DODIE DAS, RACHELL Nicholas Attending Unavailable JULIA, MARY Primary Care Unavailable DODIE DAS, RACHELL Nicholas Attending Unavailable DODIE DAS, RACHELL Nicholas Referring Unavailable JULIA, MARY Primary Care Unavailable Dr. Mary Dumont Primary Care Provider Dr. Mary Dumont Referring Provider [phone] Guaanco Guerin Attending Provider Dr. Guanaco Guerin Other Provider Dr. Blake Goins Attending Provider [phone] [phone] LOAD PLANNER, LOAD PLANNER-C Iftikhar Jackson Attending Provider [phone] Dr. Kenan Loya Attending Provider [phone] Dr. Kenan Loya Referring Provider [phone] Mauri LOAD PLANNER, LOAD PLANNER-C Mone Attending Provider Dr. Sara Hawley Attending Provider Julia, Mary Primary Care Unavailable Julia, Mary Referring Unavailable Helene LOAD PLANNER, Aleida Attending Unavailable Julia, Mary Primary Care Unavailable Julia, Mary Referring Unavailable Jose Luis Smith Attending Unavailable Julia, Mary Primary Care Unavailable Julia, Mary Referring Unavailable Kenan Loya Attending Unavailable Julia, Mary Referring Unavailable Juancho Casey Attending Unavailable Julia, Mary Primary Care Unavailable Julia, Mary Primary Care Unavailable Anselmo, Wyatt Referring Unavailable Anselmo, Wyatt Attending Unavailable Julia, Mary Primary Care Unavailable Anselmo, Wyatt Referring Unavailable Anselmo, Wyatt Attending Unavailable Julia, Mary Attending Unavailable Julia, Mary Primary Care Unavailable Juancho Casey Referring Unavailable Juancho Casey Attending Unavailable Julia, Mary Primary Care Unavailable Julia, Mary Referring Unavailable Helene LOAD PLANNER, Aleida Attending Unavailable Julia, Mary Primary Care Unavailable Julia, Mary Referring Unavailable Helene LOAD PLANNER, Aleida Attending Unavailable Julia, Mary Primary Care Unavailable Julia, Mary Primary Care Unavailable Julia, Mary Referring Unavailable Hood Orourke Attending Unavailable Julia, Mary Primary Care Unavailable Anselmo, Wyatt Referring Unavailable Anselmo, Wyatt Attending Unavailable Julia, Mary Primary Care Unavailable Kenan Loya Referring Unavailable Kenan Loya Attending Unavailable Juancho aCsey Referring Unavailable Casey, Juancho Attending Unavailable Julia, Mary Primary Care Unavailable Julia, Mary Primary Care Unavailable Anselmo, Wyatt Referring Unavailable Anselmo, Wyatt Attending Unavailable Julia, Mary Primary Care Unavailable Anselmo, Wyatt Referring Unavailable Anselmo, Wyatt Attending Unavailable Julia, Mary Primary Care Unavailable Julia, Mary Referring Unavailable Anselmo, Wyatt Attending Unavailable Julia, Mary Referring Unavailable Julia, Mary Primary Care Unavailable Sarabia LOAD PLANNER, Shamika Attending Unavailable Prayson, Bernabe Referring Unavailable Prayson, Bernabe Attending Unavailable Julia, Mary Primary Care Unavailable Prayson, Bernabe Referring Unavailable Prayson, Bernabe Attending Unavailable Julia, Mary Primary Care Unavailable Julia, Mary Primary Care Unavailable Sarabia LOAD PLANNER, Shamika Referring Unavailable Sarabia LOAD PLANNER, Shamika Attending Unavailable Julia, Mary Referring Unavailable Julia, Mary Primary Care Unavailable Anselmo, Wyatt Attending Unavailable Julia, Mary Referring Unavailable Kenan Loya Attending Unavailable Julia, Mary Primary Care Unavailable Julia, Mary Primary Care Unavailable Julia, Mary Referring Unavailable Helene LOAD PLANNER, Aleida Attending Unavailable Julia, Mary Attending Unavailable Julia, Mary Primary Care Unavailable Julia, Mary Primary Care Unavailable Julia, Mary Referring Unavailable Anselmo, Wyatt Attending Unavailable Julia, Mary Primary Care Unavailable Anselmo, Wyatt Consulting Unavailable Isckarus, Mansour Referring Unavailable Isckarus, Mansour Attending Unavailable Allergies Allergy Classification Reported Allergen(s) Allergy Type Date of Onset Reaction(s) Facility (8 sources) [place]; Translations: [[place]] Propensity to adverse reactions to drug (disorder) [facility] Tree and shrub pollen; Translations: [tree and shrub pollen] Allergy to substance 3 NEEDS FOLLOW-UP, Unknown [facility] (15 sources) DULoxetine Drug Allergy 3 [facility] (15 sources) amLODIPine Drug Allergy 3 Palpitations [facility] (4 sources) DULoxetine Drug Allergy 3 Other [facility] (1 source) NIFEdipine Drug Allergy 4 Palpitations, SOB, depressed mood [facility] (1 source) amLODIPine Drug Allergy 5 [facility] Repository (1 source) buPROPion Drug Allergy 5 [facility] Repository (1 source) DULoxetine Drug Allergy 5 [facility] Repository (1 source) NIFEdipine Drug Allergy 5 [facility] Repository Medications Current Medications Medication Drug Class(es) Dates Sig (Normalized) Sig (Original) acetaminophen 325 mg / oxyCODONE hydrochloride 5 mg oral tablet (1 source) Opioid Agonist Start: 12-25-2023 take 1 tablet by mouth every six hours Oxycodone-Acetamin ophen (Percocet) 5-325 mg tablet Active 1 TABLET PO EVERY 6 HOURS December 25, 2023 12:00am citalopram 20 mg oral tablet (20 sources) Serotonin Reuptake Inhibitor Start: 09-09-2023 End: 12-23-2023 take 40 mg by mouth once daily Citalopram Discontinued 40 MG PO DAILY September 09, 2023 1:00am December 23, 2023 8:48am Start: 08-26-2023 End: 09-09-2023 take 30 mg by mouth once daily Citalopram Discontinued 30 MG PO DAILY August 26, 2023 1:00am September 09, 2023 5:02pm Start: 06-04-2023 End: 08-26-2023 take 10 mg by mouth once daily Citalopram Discontinued 10 MG PO DAILY June 04, 2023 12:00am August 26, 2023 9:47am Start: 04-24-2021 End: 02-22-2022 take 10 mg by mouth once daily Citalopram Discontinued 10 MG PO DAILY October 04, 2021 4:47pm February 22, 2022 10:23am Start: 09-30-2017 End: 06-04-2023 take 20 mg by mouth once daily Citalopram Discontinued 20 MG PO DAILY February 04, 2023 11:00pm June 04, 2023 9:27am cyclobenzaprine hydrochloride 5 mg oral tablet (7 sources) Muscle Relaxant Start: 12-25-2023 take 5 mg by mouth three times daily Cyclobenzaprine Active 5 MG PO THREE TIMES A DAY December 25, 2023 12:00am Start: 12-20-2023 End: 12-25-2023 take 1 tablet by mouth every eight hours as needed Cyclobenzaprine 5 MG tablet Take 1 tablet by mouth every 8 hours as needed for Muscle spasms for up to 5 days. 15 tablet 12/20/2023 Active Start: 12-19-2023 End: 12-20-2023 take 5 mg by mouth three times daily as needed for muscle spasms 5 mg, Oral, 3 TIMES DAILY NEEDED, Starting on Sat12/19/23 at 1641, Until Sat12/20/23 at 1446, Muscle spasms, Post-op/Post-Proc docusate sodium 100 mg oral capsule (7 sources) Start: 12-20-2023 take 1 capsule by mouth twice daily as needed for constipation Docusate 100 MG capsule Take 1 capsule by mouth 2 times daily as needed for Constipation. 14 capsule 12/20/2023 Active fenofibrate 54 mg oral tablet (20 sources) Peroxisome Proliferator Receptor alpha Agonist Start: 11-11-2023 End: 12-02-2023 take 54 mg by mouth once daily Fenofibrate Active 54 MG PO DAILY December 02, 2023 9:27am Start: 10-21-2023 End: 10-24-2023 take 54 mg by mouth once daily Fenofibrate Discontinue d 54 MG PO DAILY October 21, 2023 1:00am October 24, 2023 2:16pm Start: 08-10-2019 End: 10-21-2023 take 1 tablet by mouth twice daily fenofibrate (TRICOR) 54 MG tablet Take 54 mg by mouth 2 times daily. 09/01/2019 Active take 1 tablet by kanwal th every twenty-four hours Fenofibrate 48 MG tablet Take 1 tablet by mouth every evening. Active End: 12-05-2023 take 1 capsule by mouth once daily Fenofibrate Micronized (ANTARA) 130 MG Cap Take 1 capsule by mouth daily. 12/05/2023 Discontinued (Formulary change) Handicap Placard (16 sources) Start: 01-03-[address] Active 0 .Route .MEDSUPPLY January 02, 2023 11:00pm As directed RX good 5 years 01/03/23-01/04/28 Start: 01-03-[address] Active 0 .Route .MEDSUPPLY January 03, 2023 12:00am As directed RX good 5 years 01/03/23-01/04/28 hydroCHLOROthiazide 25 mg oral tablet (20 sources) Thiazide Diuretic Start: 09-03-2014 End: 08-05-2023 take 1 tablet by mouth once daily hydrochlorothiazide (HYDRODIURIL) 25 MG tablet Take 25 mg by mouth daily. 07/20/2019 Active hydrOXYzine pamoate 25 mg oral capsule (1 source) Antihistamine Start: 12-23-2023 take 25 mg by mouth three times daily Hydroxyzine Pamoate Active 25 MG PO THREE TIMES A DAY December 23, 2023 12:00am losartan potassium 25 mg oral tablet (20 sources) Angiotensin 2 Receptor Marco A Start: 09-30-2019 End: 10-04-2021 losartan (COZAAR) 25 MG tablet 09/30/2019 Active Start: 08-10-2019 End: 01-09-2021 take 25 mg by mouth once daily Losartan Discontinued 2 5 MG PO DAILY December 23, 2020 3:06pm January 09, 2021 2:20pm metoprolol tartrate 50 mg oral tablet (20 sources) beta-Adrenergic Marco A Start: 09-03-2014 End: 12-20-2023 take 1 tablet by mouth twice daily metoprolol (LOPRESSOR) 50 MG tablet Take 50 mg by mouth 2 times daily. 07/20/2019 Active naloxone hydrochloride 40 mg/ml nasal spray (5 sources) Opioid Antagonist Start: 12-20-2023 End: 12-20-2023 naloxone 4 MG/0.1ML 1 spray by Nasal route once for 1 dose. [place] into the nose as directed. Call 911. If no response in 2 minutes use a new nasal spray in other nostril. Repeat until help arrives. 1 Each 12/20/2023 Active omega-3 acid ethyl esters (fpc) 1000 mg oral capsule (8 sources) take 1 capsule by mouth once daily at lunch omega-3 acid ethyl esters 1 g capsule Take 1 capsule by mouth daily with lunch. Active omeprazole 40 mg delayed release oral capsule (20 sources) Proton Pump Inhibitor Start: 10-14-2023 take 40 mg by mouth once daily Omeprazole Active 40 MG PO DAILY October 14, 2023 10:02am Start: 09-11-2023 End: 10-14-2023 take 40 mg by mouth twice daily Omeprazole Discontinue d 40 MG PO TWICE A DAY September 11, 2023 12:29pm October 14, 2023 10:04am Start: 05-22-2023 End: 09-11-2023 Omeprazole Discontinued 40 M G PO .q12 60 56 September 09, 2023 1:23pm September 11, 2023 11:30am Start: 02-22-2023 take 2 capsules by m outh once daily omeprazole [address] capsule Take 2 capsules by mouth daily. 0 02/22/2023 Active Start: 08-16-2022 End: 06-04-2023 take 20 mg by mouth once daily Omeprazole Discontinued 20 MG PO DAILY January 31, 2023 6:28pm June 04, 2023 9:27am oxyCODONE hydrochloride 5 mg oral tablet (7 sources) Opioid Agonist Start: 01-03-2024 End: 01-10-2024 take 1 tablet by mouth every eight hours as needed for pain oxyCODONE 5 MG tablet Indications: Cervical myelopathy , S/P cervical spinal fusion , Myelomalacia Take 1 tablet by mouth every 8 hours as needed for Severe Pain (max 2/ day) for up to 7 days. 14 tablet 01/03/2024 Active Start: 12-27-2023 End: 01-03-2024 take 1 tablet by mouth every six hours as needed for pain oxyCODONE 5 MG tablet Indications: Cervical vertebral fusion Take 1 tablet by mouth every 6 hours as needed for Severe Pain or Pain (breakthrough) (hold for sedation; max of 3 per day) for up to 7 days. 21 tablet 12/27/2023 01/03/2024 Active Start: 12-20-2023 End: 12-27-2023 take 1 tablet by mouth every four hours as needed for pain oxyCODONE 5 MG tablet Indications: Cervical vertebral fusion Take 1 tablet by mouth every 4 hours as needed for Moderate Pain or Severe Pain for up to 7 days. 28 tablet 12/20/2023 12/27/2023 Active Start: 12-19-2023 End: 12-20-2023 take 1 tablet by mouth every four hours as needed oxyCODONE (ROXICODONE) tablet 5 mg pantoprazole 40 mg delayed release oral tablet (5 sources) Proton Pump Inhibitor take 1 tablet by mouth once daily Pantoprazole [address] tablet DR Take 1 tablet by mouth daily. Active vitamin e 180 mg oral capsule (8 sources) take 1 capsule by mouth once daily at lunch vitamin E 400 units capsule Take 1 capsule by mouth daily with lunch. Active Completed/Discontinued Medications Medication Drug Class(es) Dates Sig (Normalized) Sig (Original) acetaminophen 325 mg oral tablet (2 sources) Start: 12-19-2023 End: 12-20-2023 975 mg, Oral, EVERY 6 HOURS, First dose on Sat12/19/23 at 1800, Until Discontinued, Maximum dose of acetaminophen is 4000 mg from all sources in 24 hours., Post-op/Post-Proc Start: 12-19-2023 End: 12-19-2023 take 4000 mg by mouth every twenty-four hours 975 mg, Oral, ONCE, 1 dose, On Carline 12/19/23 at 1200, Maximum dose of acetaminophen is 4000 mg from all sources in 24 hours., Pre-op/Pre-Proc aluminum hydroxide 40 mg/ml / magnesium hydroxide 40 mg/ml / simethicone 4 mg/ml oral suspension (1 source) Start: 12-19-2023 End: 12-20-2023 take 30 mL by mouth every six hours as needed 30 mL, Oral, EVERY 6 HOURS NEEDED, Starting on Sat12/19/23 at 1641, Until Sat12/20/23 at 1446, Other, heartburn, Per 5 mL is equivalent to: (Alum-Mag Hydroxide 200-225 mg and Simethicone 20 mg) and (Alum-Mag Hydroxide 200-200 mg and Simethicone 20 mg), Post-op/Post-Proc amLODIPine 5 mg oral tablet (14 sources) Dihydropyridine Calcium Channel Marco A Start: 05-10-2023 End: 05-13-2023 take 2.5 mg by mouth once daily Amlodipine Discontinued 2.5 MG PO DAILY 90 May 10, 2023 4:50pm May 13, 2023 10:29am Start: 05-09-2023 End: 05-10-2023 take 5 mg by mouth once daily Amlodipine Discontinued 5 MG PO DAILY May 09, 2023 12:00am May 10, 2023 4:50pm benzocaine 15 mg / menthol 3.6 mg oral lozenge (1 source) Standardized Chemical Allergen Start: 12-19-2023 End: 12-20-2023 1 lozenge, Oral, EVERY 2 HOURS NEEDED, Starting on Carline 12/19/23 at 1641, Until Sat12/20/23 at 1446, Sore Throat, Let lozenge dissolve slowly in mouth. Maximum of 8 lozenges per day. Due to product shortages and availability, 15-3.6 MG and 15-2.6 MG strengths of benzocaine-menthol (CEPACOL) lozenges may be used interchangeably at [facility]., Post-op/Post-Proc bisacodyl 10 mg rectal suppository (1 source) Stimulant Laxative Start: 12-19-2023 End: 12-20-2023 10 mg, Rectal, DAILY NEEDED, 2 doses, Starting on Carline 12/19/23 at 1641, Until Sat12/20/23 at 1446, Constipation 2nd Line, if no BM within 24h of milk of 1st line constipation medication, May repeat once. Give if Milk of Magnesia ineffective., Post-op/Post-Proc buPROPion hydrochloride 100 mg oral tablet (14 sources) Aminoketone Start: 01-31-2023 End: 02-05-2023 take 1 tablet by mouth once daily, then take 1 tablet by mouth twice daily Bupropion Hcl Discontinued 100 MG .ROUTE .COMPLEX 60 January 31, 2023 12:00am February 05, 2023 4:53pm Take 1 tablet PO daily for one week then 1 tablet twice daily thereafter. calcium chloride 0.0014 meq/ml / potassium chloride 0.004 meq/ml / sodium chloride 0.103 meq/ml / sodium lactate 0.028 meq/ml injectable solution (2 sources) Start: 12-19-2023 End: 12-20-2023 Intravenous, at 75 mL/hr, CONTINUOUS, Starting on Carline 12/19/23 at 1645, Until Sat12/20/23 at 0444, Post-op/Post-Proc ceFAZolin 2000 mg injection (1 source) Cephalosporin Antibacterial Start: 12-19-2023 End: 12-20-2023 2 g, Intravenous, Administer over 30 Minutes, EVERY 8 HOURS, 30 doses, First dose on Carline 12/19/23 at 2100, Last dose on Sat12/29/23 at 1400, Post-op/Post-Proc cholecalciferol 1.25 mg oral capsule (20 sources) Vitamin D Start: 01-31-2023 End: 09-11-2023 take 1250 ug by mouth every week Cholecalciferol (Vitamin D3) Discontinued 1250 MCG PO EVERY WEEK June 04, 2023 9:44am September 11, 2023 11:30am Start: 01-18-2023 End: 01-31-2023 take 25 ug by mouth once daily Cholecalciferol (Vitami n D3) Discontinued 25 MCG PO DAILY January 18, 2023 12:00am January 31, 2023 3:56pm take 1 capsule by [facility] once daily at lunch diazePAM 5 mg oral tablet (1 source) Benzodiazepine Start: 12-19-2023 End: 12-20-2023 take 1 tablet by mouth every six hours as needed 5 mg, Oral, EVERY 6 HOURS NEEDED, Starting on Sat12/19/23 at 1526, Until Sat12/20/23 at 1446, Muscle spasms doxycycline hyclate 100 mg oral capsule (11 sources) Tetracycline-class Drug Start: 06-25-2023 End: 07-25-2023 take 100 mg by mouth twice daily Doxycycline Hyclate Discontinued 100 MG PO TWICE A DAY 60 June 25, 2023 3:35pm July 25, 2023 1:04pm Start: 05-16-2023 End: 06-24-2023 take 100 mg by mouth twice daily Doxycycline Hyclate Discontinued 100 MG PO TWICE A DAY 60 May 16, 2023 12:00am June 24, 2023 2:39pm DULoxetine 30 mg delayed release oral capsule (20 sources) Serotonin and Norepinephrine Reuptake Inhibitor Start: 11-13-2022 End: 12-10-2022 take 30 mg by mouth once daily Duloxetine Discontinued 30 MG PO DAILY December 05, 2022 1:33pm December 10, 2022 7:45am Start: 11-13-2022 End: 12-05-2022 take 60 mg by mouth once daily Duloxetine Discontinued 60 MG PO DAILY November 13, 2022 1:00am December 05, 2022 2:33pm begin after completing one week course of duloxetine 30mg daily FLUoxetine 10 mg oral capsule (9 sources) Serotonin Reuptake Inhibitor End: 12-20-2023 fluoxetine 10 MG Cap take 10 mg by mouth daily.. 12/20/2023 Discontinued (Stop Taking at Discharge) gabapentin 100 mg oral capsule (20 sources) Anti-epileptic Agent Start: 12-19-2023 End: 12-20-2023 take 100 mg by mouth every eight hours 100 mg, Oral, EVERY 8 HOURS, First dose on Carline 12/19/23 at 1645, Until Discontinued, Post-op/Post-Proc Start: 08-10-2019 End: 10-03-2020 take 300 mg by mouth three times daily Gabapentin Discontinued 300 MG PO THREE TIMES A DAY August 10, 2019 1:00am October 03, 2020 12:23pm gadoterate Meglumine (DOTAREM) 5 MMOL/10ML injection 3-60 mL (1 source) Start: 05-30-2023 End: 05-30-2023 gadoterate Meglumine (DOTAREM) 5 MMOL/10ML injection 3-60 mL 1 ml haloperidol 5 mg/ml prefilled syringe (1 source) Typical Antipsychotic Start: 12-19-2023 End: 12-19-2023 1 mg, Intravenous, ONCE NEEDED, 1 dose, Starting on Carline 12/19/23 at 1536, Until Carline 12/19/23 at 1551, Refractory Nausea/vomiting, Use if patient still experiencing nausea/vomiting after 1st and 2nd line medications. Do not administer within 6 hours of intra-operative dose., Recovery 1 ml HYDROmorphone hydrochloride 1 mg/ml cartridge (1 source) Opioid Agonist Start: 12-19-2023 End: 12-19-2023 0.5 mg, Intravenous, EVERY 10 MINUTES NEEDED, 8 doses, Starting on Carline 12/19/23 at 1536, Until Carline 12/19/23 at 1641, Moderate Pain, Severe Pain, May give a total of 4mg in PACU., Recovery lisinopril 40 mg oral tablet (20 sources) Angiotensin Converting Enzyme Inhibitor Start: 10-04-2021 End: 05-20-2023 take 40 mg by mouth once daily Lisinopril Discontinued 40 MG PO DAILY May 21, 2022 7:33am May 20, 2023 9:12am LORazepam 1 mg oral tablet (20 sources) Benzodiazepine Start: 10-03-2020 End: 12-24-2023 take 1 mg by mouth once daily Lorazepam Discontinued 1 MG PO DAILY February 06, 2023 6:57am August 12, 2023 9:34am Start: 09-03-2014 End: 10-03-2020 take 1 mg by mouth three times daily Lorazepam Discontinued 1 MG PO THREE TIMES A DAY September 03, 2014 1:00am October 03, 2020 1:27pm take 1 tablet by kanwal every six hours as needed LORazepam 1 MG tablet Take 1 tablet by mouth every 6 hours as needed for Anxiety. Active melatonin 3 mg oral tablet (1 source) Start: 12-19-2023 End: 12-20-2023 take 6 mg by mouth once daily at bedtime as needed 6 mg, Oral, DAILY AT BEDTIME NEEDED, Starting on Sat12/19/23 at 1641, Until Sat12/20/23 at 1446, Insomnia, Post-op/Post-Proc meloxicam 7.5 mg oral tablet (18 sources) Nonsteroidal Anti-inflammatory Drug Start: 08-16-2022 End: 12-17-2022 take 7.5 mg by mouth twice daily Meloxicam Discontinued 7.5 MG PO TWICE A DAY August 16, 2022 1:00am December 17, 2022 1:57pm 24 hr NIFEdipine 60 mg extended release oral tablet (2 sources) Dihydropyridine Calcium Channel Marco A Start: 11-12-2023 End: 11-20-2023 take 60 mg by mouth once daily Nifedipine Discontinued 60 MG PO DAILY November 12, 2023 1:00am November 20, 2023 4:55pm Ondansetron (11 sources) Serotonin-3 Receptor Antagonist Start: 12-19-2023 End: 12-20-2023 take 1 tablet by mouth every six hours as needed Ondansetron (ZOFRAN) tablet 4 mg Start: 12-10-2022 take 4 mg by mouth t hree times daily Ondansetron Hcl Active 4 MG PO THREE TIMES A DAY December 10, 2022 12:00am On Hold: pt no longer needs polyvinyl alcohol 0.014 ml/ml / povidone 6 mg/ml ophthalmic solution (1 source) Start: 12-19-2023 End: 12-20-2023 take 1 drop(s) into the eye(s) every two hours as needed 1 drop, Both Eyes, EVERY 2 HOURS NEEDED, Starting on Carline 12/19/23 at 1641, Until Sat12/20/23 at 1446, Dry Eyes, Patient may self-administer., Post-op/Post-Proc povidone-iodine (3M SKIN and NASAL ANTISEPTIC) 5 % topical solution 1 Application (1 source) Start: 12-19-2023 End: 12-19-2023 1 Application, Nasal, 60 MIN PRE-OP, 1 dose, On Carline 12/19/23 at 1200, (1) Use a tissue to clean the inside of both nostrils including the inside tip of the nostril. (2) Tilting the bottle slightly, dip one swab into solution and stir vigorously for 10 seconds. Withdraw the swab slowly to avoid wiping solution off during removal. (3) Insert swab comfortably into one nostril and rotate for 15 seconds covering all surfaces. Then focus on the inside tip of nostril and rotate for an additional 15 seconds. (4) Using a new swab, repeat steps 2 & 3 with the other nostril. (5) Repeat the application in both nostrils using a fresh swab each time. (6) Do not blow nose. If solution drips out of nose, it can be lightly dabbed with a tissue., Pre-op/Pre-Proc prochlorperazine 5 mg/ml injectable solution (1 source) Phenothiazine Start: 12-19-2023 End: 12-20-2023 take 10 mg intravenously every six hours as needed 10 mg, Intravenous, EVERY 6 HOURS NEEDED, Starting on Carline 12/19/23 at 1641, Until Sat12/20/23 at 1446, Nausea / Vomiting, 2nd Line, If unrelieved by Ondansetron. , Post-op/Post-Proc sennosides, fpc 8.6 mg oral tablet (1 source) Start: 12-19-2023 End: 12-20-2023 take 8.6 mg by mouth twice daily 8.6 mg, Oral, 2 TIMES DAILY, First dose on Sat12/19/23 at 1700, Until Discontinued, Post-op/Post-Proc 1000 ml sodium chloride 9 mg/ml injection (2 sources) Start: 12-19-2023 End: 12-20-2023 Intravenous, at 20 mL/hr, SEE ADMIN INSTRUCTIONS, Starting on Carline 12/19/23 at 1641, Until Sat12/20/23 at 1446, 250mL 0.9NS to be used as carrier fluid for intermittent small volume or piggyback medication administration as needed. Infusion rate of the carrier fluid should be set at 20 mL/hr unless the rate as the intermittent medication is less than 20 mL/hr. For intermittent medications with a rate less than 20 mL/hr set the carrier fluid at that rate of the intermittent or piggy back medication., Post-op/Post-Proc Start: 05-30-2023 End: 05-30-2023 Sodium chloride (PF) 0.9 % i njection 1-100 mL sucralfate 1000 mg oral tablet (12 sources) Aluminum Complex Start: 05-22-2023 End: 12-20-2023 Sucralfate 1 g tablet 05/22/2023 12/20/2023 Discontinued (Stop Taking at Discharge) Start: 05-22-2023 End: 06-24-2023 Sucralfate Discontinued 1 GM PO .q12 60 May 22, 2023 12:00am June 24, 2023 2:39pm tiZANidine 2 mg oral tablet (20 sources) Central alpha-2 Adrenergic Agonist Start: 04-24-2021 End: 10-04-2021 Tizanidine Discontinued TAB PO April 24, 2021 12:00am October 04, 2021 5:16pm traMADol hydrochloride 50 mg oral tablet (1 source) Opioid Agonist Start: 12-19-2023 End: 12-20-2023 take 1 tablet by mouth every six hours as needed 50 mg, Oral, EVERY 6 HOURS NEEDED, Starting on Carline 12/19/23 at 1641, Until Sat12/20/23 at 1446, Mild Pain, Post-op/Post-Proc vancomycin 125 mg oral capsule (13 sources) Glycopeptide Antibacterial Start: 03-01-2023 End: 03-15-2023 take 125 mg by mouth every six hours Vancomycin Discontinued 125 MG PO EVERY 6 HOURS 56 14 March 01, 2023 12:00am March 15, 2023 12:05am Vancomycin HCl in NaCl (Vancocin) 1,250 mg 287.5 ml premade IVPB (1 source) Start: 12-19-2023 End: 12-19-2023 1,250 mg (rounded from 1,284 mg = 15 mg/kg 85.6 kg Order-specific weight), Intravenous, Administer over 1 Hours, ELECT EQUIP MAINT ENG TO PROCEDURE, 1 dose, Starting on Carline 12/19/23 at 1147, Until Carline 12/19/23 at 1340, Other, Surgical Prophylaxis, Infusion must complete prior to surgical incision. Initiate antibiotic administration 60-120 minutes prior to surgical incision (depending on Administer Over Time)., Pre-op/Pre-Proc 24 hr venlafaxine 37.5 mg extended release oral capsule (20 sources) Serotonin and Norepinephrine Reuptake Inhibitor Start: 01-24-2023 End: 01-31-2023 take 37.5 mg by mouth once daily Venlafaxine Discontinued 37.5 MG PO DAILY January 24, 2023 12:00am January 31, 2023 3:53pm Start: 01-01-2023 End: 01-24-2023 take 75 mg by mouth once daily Venlafaxine Discontinue d 75 MG PO DAILY January 01, 2023 12:00am January 24, 2023 3:29pm Start: 12-17-2022 End: 01-01-2023 take 37.5 mg by mouth once daily Venlafaxine Discontinued 37.5 MG PO DAILY December 17, 2022 12:00am January 01, 2023 9:53am Problems Active Problems Problem Classification Problem Date Documented Da te Episodic/Chronic Abdominal pain (8 sources) Abdominal pain; Translations: [Unspecified abdominal pain] 11-01-2023 Episodic Anxiety disorders (20 sources) Generalized anxiety disorder; Translations: [Generalized anxiety disorder] Onset: 0 10-06-2019 Chronic Cardiac dysrhythmias (8 sources) Palpitations; Translations: [Palpitations] Onset: 0 10-06-2019 Episodic Disorders of lipid metabolism (20 sources) Hyperlipidemia; Translations: [Hyperlipidemia, unspecified] Onset: 0 10-06-2019 Chronic Disorders of teeth and jaw (20 sources) Temporomandibular joint disorder; Translations: [Left temporomandibular joint disorder, unspecified] Episodic Disorders usually diagnosed in infancy, childhood, or adolescence (7 sources) Attention deficit hyperactivity disorder, predominantly inattentive type; Translations: [Other specified behavioral and emotional disorders with onset usually occurring in childhood and adolescence] Onset: 7 10-06-2019 Chronic Esophageal disorders (11 sources) Gastroesophageal reflux disease; Translations: [Gastro-esophageal reflux disease without esophagitis] Onset: 4 12-05-2023 Chronic Essential hypertension (20 sources) Essential hypertension; Translations: [Essential (primary) hypertension] Onset: 7 10-06-2019 Chronic Headache; including migraine (20 sources) Headache; Translations: [New onset headache] 12-01-2020 Episodic Hepatitis (1 source) Nonalcoholic steatohepatitis (MARTINEZ); Translations: [Nonalcoholic steatohepatitis (MARTINEZ)] Onset: Chronic Malaise and fatigue (20 sources) Fatigue; Translations: [Other fatigue] 12-17-2022 Episodic Mood disorders (20 sources) Depressive disorder; Translations: [Depression] Onset: 0 10-06-2019 Chronic Nonspecific chest pain (20 sources) Atypical chest pain; Translations: [Other chest pain] Onset: 1 10-06-2019 Episodic Nutritional deficiencies (20 sources) Vitamin D deficiency; Translations: [Vitamin D deficiency, unspecified] 01-31-2023 Chronic Osteoarthritis (20 sources) Arthritis; Translations: [Unspecified osteoarthritis, unspecified site] 09-29-2020 Chronic Other circulatory disease (1 source) Elevated blood pressure; Translations: [Elevated blood-pressure reading, without diagnosis of hypertension] 12-25-2023 Episodic Other circulatory disease (1 source) Elevated blood-pressure reading, without diagnosis of hypertension; Translations: [Elevated blood pressure reading without diagnosis of hypertension] 12-25-2023 Episodic Other connective tissue disease (20 sources) Impingement syndrome of shoulder region; Translations: [Impingement syndrome of left shoulder] 12-20-2021 Episodic Other connective tissue disease (1 source) Impingement syndrome of left shoulder; Translations: [Other affections of shoulder region, not elsewhere classified] Episodic Other connective tissue disease (17 sources) Weakness of hand; Translations: [Other symptoms and signs involving the musculoskeletal system] 08-29-2022 Episodic Other connective tissue disease (6 sources) History of cervical spine fusion; Translations: [Arthrodesis status] 01-01-2024 Episodic Other connective tissue disease (2 sources) Arthrodesis status; Translations: [Arthrodesis status] Onset: 4 Episodic Other gastrointestinal disorders (7 sources) Irritable bowel syndrome; Translations: [Irritable bowel syndrome without diarrhea] Onset: 1 10-06-2019 Chronic Other gastrointestinal disorders (20 sources) Gastrointestinal tract problem; Translations: [Other specified symptoms and signs involving the digestive system and abdomen] 09-29-2020 Episodic Other gastrointestinal disorders (14 sources) History of irritable bowel syndrome; Translations: [Personal history of other diseases of the digestive system] 01-29-2023 Episodic Other gastrointestinal disorders (6 sources) Personal history of other diseases of the digestive system; Translations: [Personal history of other diseases of digestive system] 02-21-2023 Episodic Other gastrointestinal disorders (4 sources) Diarrhea; Translations: [Diarrhea, unspecified] 11-01-2023 Episodic Other inflammatory condition of skin (20 sources) Psoriasis; Translations: [Other psoriasis] Onset: 6 10-06-2019 Chronic Other lower respiratory disease (20 sources) Dyspnea on exertion; Translations: [Dyspnea, unspecified] 10-04-2021 Episodic Other lower respiratory disease (8 sources) Other forms of dyspnea; Translations: [Other respiratory abnormalities] 05-09-2023 Episodic Other male genital disorders (7 sources) Induratio penis plastica; Translations: [Induration penis plastica] Onset: 3 10-06-2019 Chronic Other male genital disorders (1 source) Male erectile dysfunction, unspecified; Translations: [Male erectile dysfunction, unspecified] Onset: 5 Chronic Other nervous system disorders (20 sources) Neuropathy; Translations: [Polyneuropathy, unspecified] 09-29-2020 Chronic Other nervous system disorders (20 sources) Polyneuropathy, unspecified; Translations: [Mononeuritis of unspecified site] Chronic Other nervous system disorders (19 sources) Idiopathic peripheral neuropathy; Translations: [Hereditary and idiopathic neuropathy, unspecified] 05-30-2022 Chronic Other nervous system disorders (4 sources) Hereditary and idiopathic neuropathy, unspecified; Translations: [Unspecified hereditary and idiopathic peripheral neuropathy] Chronic Other nervous system disorders (18 sources) Polyneuropathy; Translations: [Polyneuropathy, unspecified] 08-16-2022 Chronic Other nervous system disorders (2 sources) Spinal cord disease; Translations: [Disease of spinal cord, unspecified] 05-08-2023 Chronic Other nervous system disorders (19 sources) Cervical myelopathy; Translations: [Disease of spinal cord, unspecified] Onset: 4 06-11-2023 Chronic Other nervous system disorders (2 sources) Myelomalacia; Translations: [Other specified diseases of spinal cord] 01-01-2024 Chronic Other nervous system disorders (2 sources) Other specified diseases of spinal cord; Translations: [Other specified diseases of spinal cord] Onset: 4 Chronic Other nervous system disorders (3 sources) Disease of spinal cord, unspecified; Translations: [Cervical spondylosis with myelopathy] Onset: 4 Chronic Other nervous system disorders (19 sources) Paresthesia of lower extremity; Translations: [Anesthesia of skin] 07-13-2022 Episodic Other nervous system disorders (1 source) Numbness and tingling sensation of skin; Translations: [Anesthesia of skin] 06-12-2023 Episodic Other non-traumatic joint disorders (1 source) Pain in right shoulder; Translations: [Pain in right shoulder] Onset: 5 Episodic Other non-traumatic joint disorders (1 source) Pain in left shoulder; Translations: [Pain in left shoulder] Onset: 5 Episodic Other nutritional; endocrine; and metabolic disorders (19 sources) Hereditary hemochromatosis; Translations: [Hereditary hemochromatosis] Onset: 4 03-28-2023 Chronic Other nutritional; endocrine; and metabolic disorders (20 sources) Hereditary hemochromatosis; Translations: [Hereditary hemochromatosis] Onset: 4 03-28-2023 Chronic Other nutritional; endocrine; and metabolic disorders (5 sources) Hyperammonemia; Translations: [Disorder of urea cycle metabolism, unspecified] 06-04-2023 Chronic Other nutritional; endocrine; and metabolic disorders (3 sources) Disorder of urea cycle metabolism, unspecified; Translations: [Disorders of urea cycle metabolism] 06-04-2023 Chronic Other skin disorders (20 sources) Skin lesion; Translations: [Disorder of the skin and subcutaneous tissue, unspecified] 12-20-2021 Episodic Other upper respiratory disease (20 sources) Seasonal allergy; Translations: [Other seasonal allergic rhinitis] 09-29-2020 Chronic Residual codes; unclassified (8 sources) Sleep apnea; Translations: [Sleep apnea, unspecified] 04-19-2023 Chronic Residual codes; unclassified (3 sources) Sleep apnea, unspecified; Translations: [Unspecified sleep apnea] 04-19-2023 Chronic Residual codes; unclassified (13 sources) Obstructive sleep apnea syndrome; Translations: [Obstructive sleep apnea (adult) (pediatric)] Onset: 4 11-01-2023 Chronic Residual codes; unclassified (4 sources) Obstructive sleep apnea (adult) (pediatric); Translations: [Obstructive sleep apnea (adult)(pediatric)] Onset: 4 Chronic Residual codes; unclassified (2 sources) History of hernia repair; Translations: [Other specified postprocedural states] 11-11-2023 Episodic Residual codes; unclassified (3 sources) Other specified postprocedural states; Translations: [Other postprocedural status] 11-11-2023 Episodic Residual codes; unclassified (1 source) Family history of ischemic heart disease and other diseases of the circulatory system; Translations: [Family history of ischemic heart disease and other diseases of the circulatory system] Onset: 5 Episodic Spondylosis; intervertebral disc disorders; other back problems (20 sources) Degeneration of lumbar intervertebral disc; Translations: [Other intervertebral disc degeneration, lumbar region] Onset: 4 05-07-2023 Chronic Substance-related disorders (1 source) Opioid dependence, uncomplicated; Translations: [Opioid dependence, uncomplicated] Onset: 5 Chronic Past or Other Problems Problem Classification Problem Date Documented Da te Episodic/Chronic Abdominal hernia (7 sources) Right inguinal hernia ; Translations: [Unilateral inguinal hernia, without obstruction or gangrene, not specified as recurrent] Onset: 03-21-2012 10-06-2019 Episodic Diabetes mellitus without complication (20 sources) Hyperglycemia; Translations: [Hyperglycemia, unspecified] Onset: 12-05-2023 12-17-2022 Episodic Other connective tissue disease (7 sources) Pain in limb; Translations: [Pain in unspecified limb] Onset: 10-04-2008 10-06-2019 Episodic Other connective tissue disease (7 sources) Lateral epicondylitis; Translations: [Lateral epicondylitis, unspecified elbow] Onset: 04-10-2010 10-06-2019 Episodic Other fractures (7 sources) Closed fracture of five ribs; Translations: [Multiple fractures of ribs, unspecified side, initial encounter for closed fracture] Onset: 09-16-2008 10-06-2019 Episodic Other liver diseases (7 sources) Elevated liver enzymes level; Translations: [Abnormal levels of other serum enzymes] Onset: 09-20-2011 10-06-2019 Episodic Other screening for suspected conditions (not mental disorders or infectious disease) (20 sources) Other specified abnormal findings of blood chemistry; Translations: [Elevated liver function tests] Onset: 03-10-2025 01-17-2023 Episodic Other skin disorders (7 sources) Skin tag; Translations: [Other hypertrophic disorders of the skin] Onset: 12-19-2009 10-06-2019 Episodic Spondylosis; intervertebral disc disorders; other back problems (20 sources) Lumbar radiculopathy; Translations: [Radiculopathy, lumbar region] Onset: 12-05-2023 Episodic Sprains and strains (14 sources) Strain of rotator cuff of shoulder; Translations: [Strain of muscle(s) and tendon(s) of the rotator cuff of unspecified shoulder, initial encounter] Onset: 01-02-2010 10-06-2019 Episodic Results Test Name Value Interpretation Reference Range Facility Pulmonary Visit Reporton Pulmonary Visit Report [facility] Pulmonary Medicine [address] [place] [address] OFFICE VISIT Date of Service: 08/11/25 MR#: [id number] Acct: [id number] Name: IFTIKHAR FLEMING Rep #: [id number] : 1965 Provider: VIRY Sarabia Age/Sex: 59/M Location: [facility] Status: Signed Assessment and Plan Assessment and Plan (1) Sleep apnea: Status: Chronic Qualifiers: Sleep apnea type: obstructive Qualified Code(s): G47.33 - Obstructive sleep apnea (adult) (pediatric) Comment: AHI 25.8 Plan: He is using and benefiting from Pap therapy. No indication for titration study at this time. Contact the office for any new or worsening symptoms in the meantime. Follow-up in 1 year. (2) Depression: Status: Chronic Qualifiers: Depression Type: major depressive disorder Major depression recurrence: single episode Active/Remission status: currently active Major depression episode severity: unspecified Qualified Code(s): F32.9 - Major depressive disorder, single episode, unspecified Plan: Complicates exam, plan, care and prognosis. I believe that the patient's insomnia that he is experiencing is related to uncontrolled depression and anxiety as he is currently not on any medications. I did reach out to psychiatry to see if they could set the patient up with an appointment to be evaluated. He will contact our office if he has not heard anything in the next 2 weeks. (3) Anxiety: Status: Chronic Plan: Complicates exam, plan, care and prognosis. The patient decided to discontinue his antidepressant beginning of the year. He was symptomatically controlled for quite a while, however began having symptoms a few months ago. He shortly tried an alternative medication but had undesirable side effects. I have asked him to reach back out to psychiatry to see if there is something else he should be on. The patient is optimized from an obstructive sleep apnea standpoint, however if he is having fragmented sleep due to frequent awakenings this can contribute to daytime hypersomnia as well. Recently he has been using sleep aids which are causing him to feel hung over the next day. These are not optimal for long-term use. Plan This note was generated with [employer] dictation software. It may contain incorrect words, spelling, and punctuation that were not noted in checking the note before signing. Portions of this documentation have been copied and pasted from previous office visit notes to provide a cohesive continuity of the history. The note has been reviewed, edited, and updated, as necessary. I have spent 32 minutes today reviewing labs, records and history. Time includes coordinating care, interpretation of tests, discussion with patient's other health care providers via telephone. This also includes time I spent with the patient for exam, treatment plan and education as well as documenting clinical information. Plan Details Follow Up: 1 Year HPI 1 Y FU Chief Complaint: Routine follow-up HPI Comments Details: This patient presents to the office today for follow-up of his obstructive sleep apnea. He is ambulatory with use of a cane. He is on room air. He has not recently been seen in the ED or urgent care for any respiratory illness. He has not required any antibiotics or prednisone for any breathing problems. He denies any difficulty with shortness of breath. He denies any cough, sputum production or hemoptysis. He denies any wheezing, chest tightness, chest pain or palpitations. He also denies any fever, chills or body aches. He wakes feeling rested and refreshed. He reports that recently he has been having a difficult time falling asleep and staying asleep. He wakes up frequently throughout the night with palpitations. He is not sure if it is related to bad dreams anxiety. He discontinued his antidepressant earlier this year. He recently tried an alternative medication but had unwanted side effects. He denies difficulty with nocturia. He is not having difficulty with dry mouth or mask leaks. Compliance report for the past 30 days shows 100% compliance with average use of 9 hours and 12 minutes per night. Current setting is 7 cm of water with a residual AHI 0.1 events per hour. Leaks do not appear to be problematic. Intake Vital Signs 03/10/25 09:58 08/11/25 08:43 Height 5 ft 10 in 5 ft 10 in Weight: 181 lb BMI 25.9 BP 146/85 H Blood Pressure Location Lt brachial Position Sitting Respiration 18 Pulse 69 Pulse Source Monitor Temp 97.4 F L Temperature Source Temporal Artery Pulse Oximetry (%) 99 Oxygen Delivery Method room air Intake Visit Reasons: 1 Y FU Chief Complaint: bilateral shoulder pain Associate Medical Director Required: No DME Vendor: [employer] Accompanied by: Self Allergies bupropion Allergy (Severe, V (more content not included)... Normal [facility] Gastroenterology Visit Repor ton 08-05-2025 Gastroenterology Visit Report [facility] Gastroenterology [address] [place] [address] OFFICE VISIT Date of Service: 08/05/25 MR#: [id number] Acct: [id number] Name: AMMONIFTIKHAR RINCON LEVON Rep #: [id number] : 1965 Provider: Dr. Wyatt cabrera MD Age/Sex: 59/M Location: [facility] Status: Signed Intake Vital Signs 06/22/25 13:26 08/02/25 07:48 08/05/25 15:34 Height 5 ft 10 in 5 ft 10 in 5 ft 10 in Weight: 180 lb BMI 25.8 BP 137/71 H Blood Pressure Location Rt brachial Position Sitting Pulse 77 Pulse Oximetry (%) 96 Oxygen Delivery Method room air Intake Visit Reasons: Hereditary hemochromatosis Allergies bupropion Allergy (Severe, Verified 08/05/25 15:29) Chest tightness tree and shrub pollen Allergy (Verified 08/05/25 15:29) Unknown duloxetine (From Cymbalta) Adverse Reaction (Severe, Verified 08/05/25 15:29) Other amlodipine Adverse Reaction (Intermediate, Verified 08/05/25 15:29) Lips tingling, feels strange nifedipine Adverse Reaction (Intermediate, Verified 08/05/25 15:29) Palpitations, SOB, depressed mood Medications ???Medication ???Instructions ???Recorded ???Confirmed ???Type Handicap Placard #1 ea 01/03/23 08/05/25 Rx cyanocobalamin (B12)-cobamamide 1 danial sublingual DAILY 02/11/24 History 5,000 mcg-100 mcg sublingual lozenge (B12) calcium carbonate 600 mg PO DAILY 04/06/24 08/05/25 History metoprolol tartrate 50 mg tablet 50 mg PO BID htn #180 tabs 11/26/2 5 08/05/25 Rx diphenhydramine-zinc acetate 1 1 applic topical BID PRN 03/10/25 08/05/25 History %-0.1 % topical cream (Benadryl Itch Stopping) pantoprazole 40 mg tablet,delayed 40 mg PO QAM acid reflux 90 days 04/14/25 08/05/25 Rx release #90 tabs lisinopril 40 mg tablet 40 mg PO DAILY #90 tabs 05/10/25 1 10/05/24 Rx cholecalciferol (vitamin D3) 1,250 1,250 mcg PO .every other week # 6 05/18/25 08/05/25 Rx mcg (50,000 unit) capsule caps hydrochlorothiazide 25 mg tablet 25 mg PO DAILY htn #90 tabs 08/05/25 Rx icosapent ethyl 1 gram capsule 2 g (2 x 1 gram) PO BID 1 month 08/05/25 Rx (Vascepa) #120 caps lorazepam 1 mg tablet 1 mg PO DAILY PRN Anxiety #30 tabs 08/02/25 08/05/25 Rx PFSH Medical History Dental root implant present Polyneuropathy S/P neck surgery, follow-up exam Abdominal pain MADELEINE (obstructive sleep apnea) Diarrhea Cervical myelopathy Hyperammonemia Wears glasses Ambulates with cane Fatty liver High cholesterol Back pain Difficulty swallowing Gastric reflux CPAP (continuous positive airway pressure) dependence Sleep apnea Shortness of breath on exertion Former smoker Leg cramps Cardiology follow-up encounter History of stress test Dyslipidemia Chest pain Sleep apnea Hereditary hemochromatosis Vitamin d deficiency History of IBS Elevated LFTs Encounter for wellness examination in adult Fatigue Depression Hyperglycemia Hand weakness Neck pain Low back pain Numbness and tingling of both legs Left temporomandibular joint disorder, unspecified Idiopathic peripheral neuropathy Impingement syndrome, shoulder, left Skin lesion of back Left chest pressure Dyspnea on exertion Chronic lumbar radiculopathy Neck and shoulder pain New onset of headaches Neuropathy Hypertriglyceridemia Hypertension Gastrointestinal problem Back problem Arthritis Seasonal allergies Psoriasis Anxiety Surgical History History of surgery History of tonsillectomy History of hernia surgery History of colonoscopy History of back surgery Family History Sister MADELEINE (obstructive sleep apnea) Other Alcoholism Depression Diabetes Hypertension Myocardial infarction Social History Smoking Status: Former smoker second hand exposure: No alcohol intake: never substance use type: does not use what type of physical activity do you participate in: none jordan/bahai: None seatbelt use: always HPI HPI Details: IFTIKHAR FLEMING, is a 59 M who presents to the office today for follow up. *BGI established 5.25.23 with lower abdominal pain, bloating, loose/watery stools which can get better and worse: severe symptoms present approximately every 3-4 months with chronic diarrhea on a daily basis minimally 4 times. Cymbalta attempted for anxiety/depression though felt it caused GI distress and was stopped. Probiotic attempted and felt it caused abdominal pain. Recalls a medication in the past that was taken for this that he had a reaction to. Biochemical CBC, ESR, coag, CMP, LDH, CRP, HIV, RAST, EMELIA, copper, cerulop (more content not included)... Normal [facility] Transferrinon 08-03-2025 Transferrin [Mass/Vol] 267 mg/dL Normal 177-329 [facility] Comment on above: Result Comment: Perf ormed at: - [facility] [address] [id number] Manager Oncology: Ld Samaniego PhD, Phone: [phone] Performed By: #### L 505.5000, L3410.9998 #### [facility] [address] [place], [address] CBC W/Diff, Automatedon Absolute Lymph 2.24 X10 3/uL Normal 0.83-4.51 [facility] Comment on above: Performed By: #### L 505.5000, L3410.9998 #### [facility] [address] [place], [address] Absolute Neut 5.6 X10 3/uL Normal 2.0-7.7 [facility] Comment on above: Performed By: #### L 505.5000, L3410.9998 #### [facility] [address] [facility] [place], [address] Basophils/100 WBC (Bld) 0.7 % Normal 0-1 [facility] Comment on above: Performed By: #### L 505.5000, L3410.9998 #### [facility] [address] [facility] [place], [address] Eosinophils/100 WBC (Bld) 1.8 % Normal 0-5 [facility] Comment on above: Performed By: #### L 505.5000, L3410.9998 #### [facility] [address] [place], [address] Erythrocyte distribution width (RBC) [Ratio] 13.1 % Normal 11.6-14.6 [facility] Comment on above: Performed By: #### L 505.5000, L3410.9998 #### [facility] [address] [place], [address] Hematocrit (Bld) [Volume fraction] 46.8 % Normal 40-54 [facility] Comment on above: Performed By: #### L 505.5000, L3410.9998 #### [facility] [address] [place], [address] Hemoglobin (Bld) [Mass/Vol] 16.3 g/dL Normal 13.0-16.5 [facility] Comment on above: Performed By: #### L 505.5000, L3410.9998 #### [facility] [address] [place], [address] IG% 1.500 High 0.0-0.9 [facility] Comment on above: Result Comment: IG% - Immature Granulocytes (promyelocytes, myelocytes and metamyelocytes) > 1% indicates that a LEFT SHIFT is Present. Performed By: #### L 505.5000, L3410.9998 #### [facility] [address] [place], [address] Lymphocytes/100 WBC (Bld) 25.2 % Normal 19-41 [facility] Comment on above: Performed By: #### L 505.5000, L3410.9998 #### [facility] [address] [place], [address] MCH (RBC) [Entitic mass] 32.0 pg Normal 27.0-32.0 [facility] Comment on above: Performed By: #### L 505.5000, L3410.9998 #### [facility] [address] [place], [address] MCHC (RBC) [Mass/Vol] 34.8 g/dL Normal 32-36 [facility] Comment on above: Performed By: #### L 505.5000, L3410.9998 #### [facility] [address] [place], [address] MCV (RBC) [Entitic vol] 91.9 fL Normal 80-94 [facility] Comment on above: Performed By: #### L 505.5000, L3410.9998 #### [facility] [address] [place], [address] Monocytes/100 WBC (Bld) 7.5 % Normal 0-10 [facility] Comment on above: Performed By: #### L 505.5000, L3410.9998 #### [facility] [address] [place], [address] Neutrophils/100 WBC (Bld) 63.3 % Normal 47-70 [facility] Comment on above: Performed By: #### L 505.5000, L3410.9998 #### [facility] [address] [place], [address] Nucleated RBC (Bld) [#/Vol] 0 10*3/uL Normal 0-5 [facility] Comment on above: Performed By: #### L 505.5000, L3410.9998 #### [facility] [address] [place], [address] Platelet mean volume (Bld) [Entitic vol] 9.0 fL Normal 6.2-12.0 [facility] Comment on above: Performed By: #### L 505.5000, L3410.9998 #### [facility] [address] [place], [address] Platelets (Bld) [#/Vol] 224 10*3/uL Normal 150-450 [facility] Comment on above: Performed By: #### L 505.5000, L3410.9998 #### [facility] [address] [place], [address] RBC (Bld) [#/Vol] 5.09 10*6/uL Normal 4.6-6.2 [facility] Comment on above: Performed By: #### L 505.5000, L3410.9998 #### [facility] [address] [place], [address] RDW SD 43.9 fl Normal 35.1-43.9 [facility] Comment on above: Performed By: #### L 505.5000, L3410.9998 #### [facility] [address] [place], [address] WBC (Bld) [#/Vol] 8.9 10*3/uL Normal 4.4-11.0 [facility] Comment on above: Performed By: #### L 505.5000, L3410.9998 #### [facility] [address] [place], [address] Cardiology Visit Reporton Cardiology Visit Report [facility] [address] [place] [address] OFFICE VISIT Date of Service: 08/02/25 MR#: [id number] Acct: [id number] Name: IFTIKHAR FLEMING Rep #: [id number] : 1965 Provider: CÉSAR Small Age/Sex: 59/M Location: [facility] Status: Signed Agree with assessment and plan. HPI HPI History of Present Illness Details: Iftikhar Mir is a 59-year-old male who presents to office today for follow-up for monitoring his cardiovascular health. He has a history of hemochromatosis, obstructive sleep apnea treated with CPAP, hyperlipidemia and hypertension and palpitations. He has a significant family history of coronary artery disease. Upon presentation today, patient reports he was prescribed bupropion for anxiety and depression and noticed chest pain along with chest coolness that started an hour after taking the medication and resolved several hours later. He has since discontinue this medication and reports chest pain has resolved; however, the coolness sensation remains to be noticed and comes and goes. He reports episodes where he becomes short of breath, lightheaded and experiences left arm pain. He reports 2 of these episodes that symptoms were most noticed and these occurred while he was driving. These episodes are new since for starting his bupropion; however, did discontinue this on 22 July and had an episode yesterday. He also experience pounding heart palpitations and nighttime heart racing with this medication. He does note some palpitations at night time at baseline and was previously evaluated for this. He experienced nausea yesterday with his SOB episode. He stopped bupropion 07/22/25 and started fluoxetine 07/29/25. Further ROS below. Intake Vital Signs 06/22/25 13:26 08/02/25 07:48 08/02/25 12:53 Height 5 ft 10 in 5 ft 10 in Weight: 178 lb BMI 25.5 BP 144/86 H 122/88 H Blood Pressure Location Lt brachial Lt brachial Position Sitting Sitting Respiration 18 Pulse 63 Pulse Source Monitor Pulse Oximetry (%) 96 Oxygen Delivery Method room air Intake Visit Reasons: FU AND EKG PER RAYSA Whatley Associate Medical Director Required: No Accompanied by: Self Is patient in pain?: No Allergies bupropion Allergy (Severe, Verified 08/02/25 08:54) Chest tightness tree and shrub pollen Allergy (Verified 08/02/25 08:54) Unknown duloxetine (From Cymbalta) Adverse Reaction (Severe, Verified 08/02/25 08:54) Other amlodipine Adverse Reaction (Intermediate, Verified 08/02/25 08:54) Lips tingling, feels strange nifedipine Adverse Reaction (Intermediate, Verified 08/02/25 08:54) Palpitations, SOB, depressed mood Medications ???Medication ???Instructions ???Recorded ???Confirmed ???Type Handicap Placard #1 ea 01/03/23 06/22/25 Rx cyanocobalamin (B12)-cobamamide 1 danial sublingual DAILY 02/11/24 History 5,000 mcg-100 mcg sublingual lozenge (B12) calcium carbonate 600 mg PO DAILY 04/06/24 08/02/25 History metoprolol tartrate 50 mg tablet 50 mg PO BID htn #180 tabs 11/26/2 5 08/02/25 Rx diphenhydramine-zinc acetate 1 1 applic topical BID PRN 03/10/25 08/02/25 History %-0.1 % topical cream (Benadryl Itch Stopping) pantoprazole 40 mg tablet,delayed 40 mg PO QAM acid reflux 90 days 04/14/25 08/02/25 Rx release #90 tabs lisinopril 40 mg tablet 40 mg PO DAILY #90 tabs 05/10/25 1 10/02/24 Rx cholecalciferol (vitamin D3) 1,250 1,250 mcg PO .every other week # 6 05/18/25 08/02/25 Rx mcg (50,000 unit) capsule caps fluoxetine 10 mg capsule 10 mg PO QDAY 08/02/25 08/02/25 Hi story hydrochlorothiazide 25 mg tablet 25 mg PO DAILY htn #90 tabs 08/02/25 Rx icosapent ethyl 1 gram capsule 1 g PO BID 1 month #180 caps 08/0208/02/25 Rx (Vascepa) lorazepam 1 mg tablet 1 mg PO DAILY PRN Anxiety #30 tabs 08/02/25 08/02/25 Rx Ejection fraction %: 65 Have you fallen in the past year?: No Nurse's Note: Pt wears a CPAP, but pt has been abnormally tired lately. Had a cold feeling in his chest while taking bupropion. He stopped that and started taking fluoxetine about 5 days ago. Pt had an episode yesterday while driving. He had sudden onset SOB. He started to feel lightheaded and dizzy near syncope. 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 Pt has had a lot of stress and anxiety recently. Used to take citalopram, but is not taking it anymore. Has been feeling this way x2 months. [facility] Medical History (Updated 08/02/25 @ 12:57 by CÉSAR Small) Dental root implant present Polyneuropathy S/P neck surgery, follow-up exam Abdominal pain MADELEINE (obstructive sleep apnea) Diarrhea Cervical myelopathy Hyperammonemia Wears glasses Ambulates with cane Fatty liver High cholesterol Back pain Difficulty swallowing Gastric reflux CPAP (more content not included)... Normal [facility] Comprehensive Metabolic Prof ilon 08-02-2025 Albumin [Mass/Vol] 4.6 g/dL Normal 3.5-5.0 [facility] Comment on above: Performed By: #### L 505.5000, L3410.9998 #### [facility] [address] [place], [address] Albumin/Globulin [Mass ratio] 1.8 {ratio} Normal 0.9-2.4 [facility] Comment on above: Performed By: #### L 505.5000, L3410.9998 #### [facility] [address] [place], [address] ALK PHOS 46 U/L Normal 40-129 [facility] Comment on above: Performed By: #### L 505.5000, L3410.9998 #### [facility] [address] [place], [address] ALT [Catalytic activity/Vol] 27 U/L Normal <=46 [facility] Comment on above: Performed By: #### L 505.5000, L3410.9998 #### [facility] [address] [place], [address] AST [Catalytic activity/Vol] 22 U/L Normal <=37 [facility] Comment on above: Result Comment: Hemo lysis present, Results??could be affected. ?? Performed By: #### L 505.5000, L3410.9998 #### [facility] [address] [place], [address] Bilirubin [Mass/Vol] 0.47 mg/dL Normal 0.00-1.30 [facility] Comment on above: Performed By: #### L 505.5000, L3410.9998 #### [facility] [address] [place], [address] BUN/CRE 27.2 RATIO High 10-20 [facility] Comment on above: Performed By: #### L 505.5000, L3410.9998 #### [facility] [address] [place], [address] Calcium [Mass/Vol] 9.5 mg/dL Normal 7.6-11.0 [facility] Comment on above: Performed By: #### L 505.5000, L3410.9998 #### [facility] [address] [place], [address] Chloride [Moles/Vol] 94 mmol/L Low 98-108 [facility] Comment on above: Performed By: #### L 505.5000, L3410.9998 #### [facility] [address] [place], [address] CO2 [Moles/Vol] 28.2 mmol/L Normal 21.0-32.0 [facility] Comment on above: Performed By: #### L 505.5000, L3410.9998 #### [facility] [address] [place], [address] Creatinine [Mass/Vol] 0.71 mg/dL Normal 0.70-1.20 [facility] Comment on above: Performed By: #### L 505.5000, L3410.9998 #### [facility] [address] [place], [address] GAP 9 Normal 5-15 [facility] Comment on above: Performed By: #### L 505.5000, L3410.9998 #### [facility] [address] [place], [address] GFR/1.73 sq M.predicted among non-blacks MDRD (S/P/Bld) [Vol rate/Area] 106 mL/min/{1.73_m2} Normal >60 [facility] Comment on above: Result Comment: mL/m in/1.73m2 CKD-EPI Creatinine Equation (2020) Performed By: #### L 505.5000, L3410.9998 #### [facility] [address] [place], [address] Globulin (S) [Mass/Vol] 2.6 g/dL Normal 2.2-4.2 [facility] Comment on above: Performed By: #### L 505.5000, L3410.9998 #### [facility] [address] [place], [address] Glucose [Mass/Vol] 128 mg/dL High 70-99 [facility] Comment on above: Performed By: #### L 505.5000, L3410.9998 #### [facility] [address] [place], [address] Potassium [Moles/Vol] 4.7 mmol/L Normal 3.3-5.1 [facility] Comment on above: Result Comment: Hemo lysis present, Results??could be affected. ?? Performed By: #### L 505.5000, L3410.9998 #### [facility] [address] [place], [address] Sodium [Moles/Vol] 131 mmol/L Low 133-145 [facility] Comment on above: Performed By: #### L 505.5000, L3410.9998 #### [facility] [address] [place], [address] T PROT 7.1 g/dL Normal 5.9-8.4 [facility] Comment on above: Performed By: #### L 505.5000, L3410.9998 #### [facility] [address] [place], [address] Urea nitrogen [Mass/Vol] 19 mg/dL Normal 4-19 [facility] Comment on above: Performed By: #### L 505.5000, L3410.9998 #### [facility] [address] [place], [address] Ferritinon 08-02-2025 Ferritin [Mass/Vol] 48 ng/mL Normal 37-417 [facility] Comment on above: Performed By: #### L 505.5000, L3410.9998 #### [facility] [address] [place], [address] Iron+Iron Binding Capacityon 08-02-2025 Iron [Mass/Vol] 126 ug/dL Normal 65-175 [facility] Comment on above: Performed By: #### L 505.5000, L3410.9998 #### [facility] [address] [place], [address] UIBC 198 ug/dL Low 228-428 [facility] Comment on above: Result Comment: Hemo lysis present, Results??could be affected. ?? Performed By: #### L 505.5000, L3410.9998 #### [facility] [address] [place], [address] Lipid Profileon 08-02-2025 CHOL:HDL 5.81 Normal [facility] Comment on above: Performed By: #### L 505.5000, L3410.9998 #### [facility] [address] [place], [address] Cholesterol [Mass/Vol] 233 mg/dL High <=200 [facility] Comment on above: Result Comment: Chol esterol level, Desirable <200 mg/dL Borderline high cholesterol 200-239 mg/dL High cholesterol >=240 mg/dL Recommendations of the NCEP Adult Treatment Panel for the following risk-cutoff thresholds for the [place] population. Performed By: #### L 505.5000, L3410.9998 #### [facility] [address] [place], [address] Cholesterol in HDL [Mass/Vol] 40 mg/dL Normal [facility] Comment on above: Result Comment: Susy onal Cholesterol Education Program (NCEP) guidelines: <40 mg/dL: Low HDL-cholesterol (major risk factor for CHD) >= 60 mg/dL: High HDL-cholesterol (negative risk factor for CHD) HDL-cholesterol is affected by a number of factors, e.g. smoking, exercise, hormones, sex and age. Performed By: #### L 505.5000, L3410.9998 #### [facility] [address] [facility] [address] Cholesterol in LDL [Mass/Vol] 143 mg/dL Normal [facility] Comment on above: Result Comment: Bord kpqrzj=791-670 mg/dL Higher Lwss=086 mg/dL or greater Moreira Equation 2020 for LDL-C Performed By: #### L 505.5000, L3410.9998 #### [facility] [address] [facility] [address] Cholesterol in VLDL [Mass/Vol] 55 mg/dL High 5-40 [facility] Comment on above: Performed By: #### L 505.5000, L3410.9998 #### [facility] [address] [facility] [address] Triglyceride [Mass/Vol] 273 mg/dL High [facility] Comment on above: Result Comment: The drugs N-Acetylcysteine and Metamizole may falsely depress this assay. Normal range: <150 mg/dL Borderline High: 150-199 mg/dL High: 200-499 mg/dL Very High: >500 mg/dL Performed By: #### L 505.5000, L3410.9998 #### [facility] [address] [place], [address] Magnesiumon 08-02-2025 Magnesium [Mass/Vol] 2.2 mg/dL Normal 1.5-2.2 [facility] Comment on above: Performed By: #### L 505.5000, L3410.9998 #### [facility] [address] [place], [address] Prothrombin Time w/INRon INR Coag (PPP) [Relative time] 0.9 {INR} Normal [facility] Comment on above: Performed By: #### L 505.5000, L3410.9998 #### [facility] [address] [place], [address] PT Coag (PPP) [Time] 12.3 s Normal 11.7-14.9 [facility] Comment on above: Performed By: #### L 505.5000, L3410.9998 #### [facility] [address] [place], [address] Thyroid Stim Hormone (TSH)on 08-02-2025 TSH 2.130 uIU/mL Normal 0.300-4.200 [facility] Comment on above: Performed By: #### L 505.5000, L3410.9998 #### [facility] [address] [place], [address] Orthopedic Visit Reporton Orthopedic Visit Report [facility] [address] [place] [address] [address] [place] [address] OFFICE VISIT Date of Service: 06/22/25 MR#: [id number] Acct: [id number] Name: IFTIKHAR FLEMING Rep #: [id number] : 1965 Provider: Dr. Jose Luis bolden MD Age/Sex: 59/M Location: [facility] Status: Signed with Addenda ADDENDUM by TERRIE Blancas on 06/22/25 at 1352 Office Procedure Documentation entered by Eli Blancas MA 06/22/25 13:52: Ortho Injections Injections Yes Subacromial Injection Bilateral Is this a patient provided medication?: No Details: Obtained consent for injection. Under sterile conditions, injected the patients Bilateral shoulders with 2cc Kenalog, and 4cc Bupivacaine x2. The patient tolerated the injection well without any noted complication. Patient should call our office if redness develops, pain worsens or if they have any concerns. Office Meds Kenalog 40 mg/mL suspension for injection Performing Provider: Jose Luis Smith MD Performing Location: [facility] Administered by: Jose Luis Smith MD on 06/22/25 13:50 Dose Route Admin Location Dispensed Lot Number Expiration Date Package NDC NDC Facilitator 40 mg intra-articular bilateral shoulders 1 mL [id number] 09/30/26 [id number] [facility] Date cc: * Signed Intake Vital Signs 06/03/25 13:43 06/22/25 13:26 Height 5 ft 10 in 5 ft 10 in Weight: 180 lb 5 oz 180 lb BMI 25.8 25.8 BP 122/64 H Blood Pressure Location Lt brachial Position Sitting Respiration 18 Pulse 73 Pulse Source Monitor Temp 98.4 F Pulse Oximetry (%) 96 Oxygen Delivery Method room air Intake Visit Reasons: BILATERAL SHOULDERS Chief Complaint: bilateral shoulder pain Accompanied by: Self Is patient in pain?: Yes Pain scale (1-10): 4 Allergies tree and shrub pollen Allergy (Verified 06/22/25 13:30) Unknown duloxetine (From Cymbalta) Adverse Reaction (Severe, Verified 06/22/25 13:30) Other amlodipine Adverse Reaction (Intermediate, Verified 06/22/25 13:30) Lips tingling, feels strange nifedipine Adverse Reaction (Intermediate, Verified 06/22/25 13:30) Palpitations, SOB, depressed mood Medications ???Medication ???Instructions ???Recorded ???Confirmed ???Type Handicap Placard #1 ea 01/03/23 06/22/25 Rx cyanocobalamin (B12)-cobamamide 1 danial sublingual DAILY 02/11/24 History 5,000 mcg-100 mcg sublingual lozenge (B12) calcium carbonate 600 mg PO DAILY 04/06/24 06/22/25 History hydrochlorothiazide 25 mg tablet 25 mg PO DAILY htn #90 tabs 06/22/25 Rx icosapent ethyl 1 gram capsule 2 g (2 x 1 gram) PO BID 1 month 06/22/25 Rx (Vascepa) #120 caps metoprolol tartrate 50 mg tablet 50 mg PO BID htn #180 tabs 11/26/2 5 06/22/25 Rx diphenhydramine-zinc acetate 1 1 applic topical BID PRN 03/10/25 06/22/25 History %-0.1 % topical cream (Benadryl Itch Stopping) pantoprazole 40 mg tablet,delayed 40 mg PO QAM acid reflux 90 days 04/14/25 06/22/25 Rx release #90 tabs lisinopril 40 mg tablet 40 mg PO DAILY #90 tabs 05/10/25 0 06/22/25 Rx cholecalciferol (vitamin D3) 1,250 1,250 mcg PO .every other week # 6 05/18/25 06/22/25 Rx mcg (50,000 unit) capsule caps lorazepam 1 mg tablet 1 mg PO DAILY PRN Anxiety #30 tabs 06/14/25 06/22/25 Rx Have you fallen in the past year?: No PFSH Medical History Dental root implant present Polyneuropathy S/P neck surgery, follow-up exam Abdominal pain MADELEINE (obstructive sleep apnea) Diarrhea Cervical myelopathy Hyperammonemia Wears glasses Ambulates with cane Fatty liver High cholesterol Back pain Difficulty swallowing Gastric reflux CPAP (continuous positive airway pressure) dependence Sleep apnea Shortness of breath on exertion Former smoker Leg cramps Cardiology follow-up encounter History of stress test Dyslipidemia Chest pain Sleep apnea Hereditary hemochromatosis Vitamin d deficiency History of IBS Elevated LFTs Encounter for wellness examination in adult Fatigue Depression Hyperglycemia Hand weakness Neck pain Low back pain Numbness and tingling of both legs Left temporomandibular joint disorder, unspecified Idiopathic peripheral neuropathy Impingement syndrome, shoulder, left Skin lesion of back Left chest pressure Dyspnea on exertion Chronic lumbar radiculopathy Neck and shoulder pain New onset of headaches Neuropathy Hypertriglyceridemia Hypertension Gastrointestinal problem Back problem Arthritis Seasonal allergies Psoriasis Anxiety Hypertension Surgical History (Reviewed 06/22/25 @ 13:31 b (more content not included)... Normal [facility] Transferrinon 09-06-2025 Transferrin [Mass/Vol] 256 mg/dL Normal 177-329 [facility] Comment on above: Result Comment: Perf ormed at: [facility] [id number] Manager Oncology: Ld Samaniego PhD, Phone: [phone] Performed By: #### L 505.5000, L3472.9991 #### [facility] [address] [place], [address] CBC W/Diff, Automatedon 09-0 4-2024 Absolute Lymph 2.35 X10 3/uL Normal 0.83-4.51 [facility] Comment on above: Performed By: #### L 501.9985 #### [facility] [address] [place], [address] Absolute Neut 4.7 X10 3/uL Normal 2.0-7.7 [facility] Comment on above: Performed By: #### L [id number] #### [facility] [address] [place], [address] Basophils/100 WBC (Bld) 0.5 % Normal 0-1 [facility] Comment on above: Performed By: #### L [id number] #### [facility] [address] [place], [address] Eosinophils/100 WBC (Bld) 2.4 % Normal 0-5 [facility] Comment on above: Performed By: #### L [id number] #### [facility] [address] [place], [address] Erythrocyte distribution width (RBC) [Ratio] 12.9 % Normal 11.6-14.6 [facility] Comment on above: Performed By: #### L [id number] #### [facility] [address] [place], [address] Hematocrit (Bld) [Volume fraction] 46.4 % Normal 40-54 [facility] Comment on above: Performed By: #### L [id number] #### [facility] [address] [place], [address] Hemoglobin (Bld) [Mass/Vol] 16.2 g/dL Normal 13.0-16.5 [facility] Comment on above: Performed By: #### L 501.9985 #### [facility] [address] [place], [address] IG% 0.800 Normal 0.0-0.9 [facility] Comment on above: Result Comment: IG% - Immature Granulocytes (promyelocytes, myelocytes and metamyelocytes) > 1% indicates that a LEFT SHIFT is Present. Performed By: #### L 501.9985 #### [facility] [address] [place], [address] Lymphocytes/100 WBC (Bld) 30.1 % Normal 19-41 [facility] Comment on above: Performed By: #### L [id number] #### [facility] [address] [place], [address] MCH (RBC) [Entitic mass] 31.5 pg Normal 27.0-32.0 [facility] Comment on above: Performed By: #### L [id number] #### [facility] [address] [place], [address] MCHC (RBC) [Mass/Vol] 34.9 g/dL Normal 32-36 [facility] Comment on above: Performed By: #### L [id number] #### [facility] [address] [place], [address] MCV (RBC) [Entitic vol] 90.1 fL Normal 80-94 [facility] Comment on above: Performed By: #### L [id number] #### [facility] [address] [place], [address] Monocytes/100 WBC (Bld) 6.4 % Normal 0-10 [facility] Comment on above: Performed By: #### L [id number] #### [facility] [address] [place], [address] Neutrophils/100 WBC (Bld) 59.8 % Normal 47-70 [facility] Comment on above: Performed By: #### L [id number] #### [facility] [address] [place], [address] Nucleated RBC (Bld) [#/Vol] 0 10*3/uL Normal 0-5 [facility] Comment on above: Performed By: #### L [id number] #### [facility] [address] [place], [address] Platelet mean volume (Bld) [Entitic vol] 9.4 fL Normal 6.2-12.0 [facility] Comment on above: Performed By: #### L [id number] #### [facility] [address] [place], [address] Platelets (Bld) [#/Vol] 224 10*3/uL Normal 150-450 [facility] Comment on above: Performed By: #### L [id number] #### [facility] [address] [place], [address] RBC (Bld) [#/Vol] 5.15 10*6/uL Normal 4.6-6.2 [facility] Comment on above: Performed By: #### L [id number] #### [facility] [address] [place], [address] RDW SD 42.8 fl Normal 35.1-43.9 [facility] Comment on above: Performed By: #### L [id number] #### [facility] [address] [place], [address] WBC (Bld) [#/Vol] 7.8 10*3/uL Normal 4.4-11.0 [facility] Comment on above: Performed By: #### L [id number] #### [facility] [address] [place], [address] Comprehensive Metabolic Prof ilon 06-03-2025 Albumin [Mass/Vol] 4.5 g/dL Normal 3.5-5.0 [facility] Comment on above: Performed By: #### L [id number] #### [facility] [address] [place], [address] Albumin/Globulin [Mass ratio] 1.7 {ratio} Normal 0.9-2.4 [facility] Comment on above: Performed By: #### L [id number] #### [facility] [address] [place], [address] ALK PHOS 64 U/L Normal 40-129 [facility] Comment on above: Performed By: #### L [id number] #### [facility] [address] [place], [address] ALT [Catalytic activity/Vol] 30 U/L Normal <=46 [facility] Comment on above: Performed By: #### L [id number] #### [facility] [address] [place], [address] AST [Catalytic activity/Vol] 24 U/L Normal <=37 [facility] Comment on above: Performed By: #### L [id number] #### [facility] [address] [place], [address] Bilirubin [Mass/Vol] 0.57 mg/dL Normal 0.00-1.30 [facility] Comment on above: Performed By: #### L [id number] #### [facility] [address] [place], [address] BUN/CRE 23.2 RATIO High 10-20 [facility] Comment on above: Performed By: #### L [id number] #### [facility] [address] [place], [address] Calcium [Mass/Vol] 9.7 mg/dL Normal 7.6-11.0 [facility] Comment on above: Performed By: #### L [id number] #### [facility] [address] [place], [address] Chloride [Moles/Vol] 97 mmol/L Low 98-108 [facility] Comment on above: Performed By: #### L [id number] #### [facility] [address] [place], [address] CO2 [Moles/Vol] 26.6 mmol/L Normal 21.0-32.0 [facility] Comment on above: Performed By: #### L [id number] #### [facility] [address] [place], [address] Creatinine [Mass/Vol] 0.81 mg/dL Normal 0.70-1.20 [facility] Comment on above: Performed By: #### L [id number] #### [facility] [address] [place], [address] ECRCL 102.64 ml/min Normal 50-250 [facility] Comment on above: Performed By: #### L [id number] #### [facility] [address] [place], [address] GAP 11 Normal 5-15 [facility] Comment on above: Performed By: #### L [id number] #### [facility] [address] [place], [address] GFR/1.73 sq M.predicted among non-blacks MDRD (S/P/Bld) [Vol rate/Area] 102 mL/min/{1.73_m2} Normal >60 [facility] Comment on above: Result Comment: mL/m in/1.73m2 CKD-EPI Creatinine Equation (2020) Performed By: #### L [id number] #### [facility] [address] [place], [address] Globulin (S) [Mass/Vol] 2.7 g/dL Normal 2.2-4.2 [facility] Comment on above: Performed By: #### L [id number] #### [facility] [address] [place], [address] Glucose [Mass/Vol] 143 mg/dL High 70-99 [facility] Comment on above: Performed By: #### L [id number] #### [facility] [address] [place], [address] Potassium [Moles/Vol] 4.3 mmol/L Normal 3.3-5.1 [facility] Comment on above: Performed By: #### L [id number] #### [facility] [address] [place], [address] Sodium [Moles/Vol] 134 mmol/L Normal 133-145 [facility] Comment on above: Performed By: #### L [id number] #### [facility] [address] [place], [address] T PROT 7.2 g/dL Normal 5.9-8.4 [facility] Comment on above: Performed By: #### L [id number] #### [facility] [address] [place], [address] Urea nitrogen [Mass/Vol] 19 mg/dL Normal 4-19 [facility] Comment on above: Performed By: #### L [id number] #### [facility] [address] [place], [address] Ferritinon 06-03-2025 Ferritin [Mass/Vol] 40 ng/mL Normal 37-417 [facility] Comment on above: Performed By: #### L [id number] #### [facility] [address] [place], [address] Oncology Visit Reporton Oncology Visit Report [facility] [place] [facility] [address] [place] [address] OFFICE VISIT Date of Service: 06/03/25 1330 MR#: [id number] Acct: [id number] Name: IFTIKHAR FLEMING Rep #: [id number] : 1965 From: Aleida Narayan NP [employer] -C Age/Sex: 59/M Location: [facility] Status: Signed HPI Subjective Date of Service 06/03/25 Chief Complaint 3 m f/u History of Present Illness 59-year-old gentleman evaluated for abnormal liver enzymes and found to have elevated iron parameters, see lab. He was recently diagnosed with prediabetes, has nonspecific chronic back pain, erectile dysfunction but fathered a 30-year-old son and did not attempt for more children. No family history of hereditary hemochromatosis. 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 Underwent therapeutic phlebotomy last on December 14, 2024. Reports he experienced fatigue x 1 week after last phlebotomy. Follows with GI. [facility] Medical History Dental root implant present Polyneuropathy S/P neck surgery, follow-up exam Abdominal pain MADELEINE (obstructive sleep apnea) Diarrhea Cervical myelopathy Hyperammonemia Wears glasses Ambulates with cane Fatty liver High cholesterol Back pain Difficulty swallowing Gastric reflux CPAP (continuous positive airway pressure) dependence Sleep apnea Shortness of breath on exertion Former smoker Leg cramps Cardiology follow-up encounter History of stress test Dyslipidemia Chest pain Sleep apnea Hereditary hemochromatosis Vitamin d deficiency History of IBS Elevated LFTs Encounter for wellness examination in adult Fatigue Depression Hyperglycemia Hand weakness Neck pain Low back pain Numbness and tingling of both legs Left temporomandibular joint disorder, unspecified Idiopathic peripheral neuropathy Impingement syndrome, shoulder, left Skin lesion of back Left chest pressure Dyspnea on exertion Chronic lumbar radiculopathy Neck and shoulder pain New onset of headaches Neuropathy Hypertriglyceridemia Hypertension Gastrointestinal problem Back problem Arthritis Seasonal allergies Psoriasis Anxiety Hypertension Surgical History History of surgery History of tonsillectomy History of hernia surgery History of colonoscopy History of back surgery Family History Sister MADELEINE (obstructive sleep apnea) Other Alcoholism Depression Diabetes Hypertension Myocardial infarction Social History Smoking Status: Former smoker second hand exposure: No alcohol intake: never substance use type: does not use what type of physical activity do you participate in: none jordan/bahai: None seatbelt use: always ROS ROS Narrative Negative except as documented in the interval HPI Intake Vital Signs 03/08/25 13:57 06/03/25 13:31 06/03/25 13:43 Height 5 ft 10 in 5 ft 10 in 5 ft 10 in Weight: 180 lb 5 oz BMI 25.8 BP 122/64 H Blood Pressure Location Lt brachial Position Sitting Respiration 18 Pulse 73 Pulse Source Monitor Temp 98.4 F Temperature Source Temporal Artery Pulse Oximetry (%) 96 Oxygen Delivery Method room air Intake Is patient in pain?: No Allergies tree and shrub pollen Allergy (Verified 06/03/25 13:39) Unknown duloxetine (From Cymbalta) Adverse Reaction (Severe, Verified 06/03/25 13:39) Other amlodipine Adverse Reaction (Intermediate, Verified 06/03/25 13:39) Lips tingling, feels strange nifedipine Adverse Reaction (Intermediate, Verified 06/03/25 13:39) Palpitations, SOB, depressed mood Medications ???Medication ???Instructions ???Recorded ???Confirmed ???Type Handicap Placard #1 ea 01/03/23 06/03/25 Rx cyanocobalamin (B12)-cobamamide 1 danial sublingual DAILY 02/11/24 History 5,000 mcg-100 mcg sublingual lozenge (B12) calcium carbonate 600 mg PO DAILY 04/06/24 06/03/25 History hydrochlorothiazide 25 mg tablet 25 mg PO DAILY htn #90 tabs 06/03/25 Rx icosapent ethyl 1 gram capsule 2 g (2 x 1 gram) PO BID 1 month 06/03/25 Rx (Vascepa) #120 caps metoprolol tartrate 50 mg tablet 50 mg PO BID htn #180 tabs 11/26/2 5 06/03/25 Rx diphenhydramine-zinc acetate 1 1 applic topical BID PRN 03/10/25 06/03/25 History %-0.1 % topical cream (Benadryl Itch Stopping) lorazepam 1 mg tablet 1 mg PO DAILY PRN Anxiety #30 tabs 03/24/25 06/03/25 Rx pantoprazole 40 mg tablet,delayed 40 mg PO QAM acid reflux 90 days 04/14/2506/03 (more content not included)... Normal [facility] Neurology Visit Reporton Neurology Visit Report [facility] [address] [place] [address], [address] [place] [address] OFFICE VISIT Date of Service: 05/17/25 MR#: [id number] Acct: [id number] Name: IFTIKHAR FLEMING Rep #: [id number] : 1965 Provider: Dr. Kenan jesus MD Age/Sex: 59/M Location: [facility]. Status: Signed HPI HPI Chief Complaint: 4m f/u Details: Interim History: Iftikhar returns for follow-up visit. He has a history of hypertension, borderline diabetes mellitus, depression and anxiety. In 2015, he underwent a left L4-5 lumbar microdiscectomy. He had low back pain and left lower extremity radicular pain extending to the foot, preoperatively. Postoperatively, his distal left lower extremity pain diminished significantly however he has continued to experience low back pain, left gluteal region pain and also noted having numbness over the lateral aspect of the left calf and left foot. The symptoms have persisted. His back and left gluteal region pain are worsened with walking. He uses a cane. His discomfort has limited his walking range. Gabapentin for his pain was not well-tolerated (caused agitation). Later in 2015, following his lumbar surgery, he also began to experience an electric type sensation in the left foot and left leg distally (below the knee) and then began to experience a similar sensation in the right foot and right leg distally. The electric type sensation is present at rest and with movement. Since 2019, he has been experiencing intermittent aching and a feeling of weakness in the hands and this worsened over time. He had chronic neck pain. He was evaluated by a neurosurgeon following his lumbar surgery in 2015 and further lumbar surgery was recommended. He was seen by Dr. Baez, an orthopedic surgeon, in [address] Baez did not feel that surgery would alleviate his lower extremity symptoms. He has subsequently seen an orthopedic surgeon at [facility]. 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 The patient states that he was offered lumbar surgery on his orthopedic evaluation in 2023, however the patient has decided not to pursue this. He underwent a C5-6 and C6-7 anterior cervical discectomies and fusion in November 2023. His neck pain diminished. He had some initial improvement of the feeling of weakness in the hands though subsequently he felt that his hands again felt weak. He experiences some aching pain in the hands. He states that on orthopedic evaluation later in 2023 at [facility], at that further cervical spine surgery was not recommended at that time though it was felt that he may possibly need some further cervical spine surgery in the future. He reports having bilateral shoulder pain. He had a left shoulder joint injection in the past and this was of benefit for pain in this region. He reports increased subjective weakness in the upper extremities recently. Citalopram was of some benefit for his depression and anxiety but was not of benefit for his neuropathic pain. He is no longer experiencing anxiety and depression. Citalopram was briefly switched to escitalopram. He experienced a vague head pressure when the switch to escitalopram was made. He then discontinued escitalopram after several days and his head pressure symptoms resolved. He did not feel anxious or depressed and did not resume citalopram. Duloxetine (at a dose of 30 mg daily) caused nausea. Venlafaxine ER at doses of 75 mg daily and reduced doses of 37.5 mg daily, prescribed in 2022, was not well-tolerated (caused confusion and feeling of unwellness). He has used lorazepam infrequently. Prior use of quetiapine, buspirone (caused tiredness), sertraline, zolpidem and divalproex were not well-tolerated. Hydroxyzine was not of benefit for his anxiety. Prior use of Viibryd, Fetzima, fluoxetine and aripiprazole were not of benefit. He previously took bupropion for smoking sensation and had tolerated this medication well. He had prior [facility] testing (results reviewed on 12/17/2022). He reported having some intermittent difficulty swallowing foods and liquids that began in the spring 2021 and had occasional dyspepsia. 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 The patient stated that he has also been diagnosed with dumping syndrome. He previously took omeprazole and sucralfate. He now takes pantoprazole. He has a history of headaches that began around 2018. His hea (more content not included)... Normal [facility] Shoulder min 2 Viewson 05-17 Shoulder min 2 Views [facility] [address] [place] [address] Shoulder min 2 Views MR#: [id number] Acct: [id number] Name: IFTIKHAR FLEMING Rep #: [id number] : 1965 M 59 From: Doyle Cabrera PCP: Dr. Mary Dumont MD Status: [facility] CLI Study: Shoulder min 2 Views Date of Exam: 05/17/25 Exam# [id number] Ordering Dr: Kenan Loya MD PROCEDURE: SHOULDER MIN 2 VIEWS 05/17/2025 REASON FOR EXAM: BILATERAL SHOULDER PAIN TECHNIQUE: Four view right shoulder series and four view left shoulder series (combined dictation). COMPARISON: Left shoulder study 09/25/2021. RAD/Shoulder min 2 Views IMPRESSION: In the edge of imaging, prior lower cervical surgery is seen. Voll-qx-huvmkxmk degenerative changes of the visualized spine are seen. The right acromioclavicular joint demonstrates mxjy-nz-frbzslgj degenerative changes. Minimal right glenohumeral joint degenerative changes are noted. No acute fracture or dislocation is seen. The left acromioclavicular joint demonstrates moderate degenerative changes, progressed since 2020. Minimal left glenohumeral joint degenerative changes are noted. No acute fracture or dislocation is seen. Reading Location: [place] [address] CC: Dr. Mary Dumont MD; Dr. Kenan Loya MD Product Safety Head: Signed Normal [facility] Shoulder min 2 Views [facility] [address] [place], [place] [address] Shoulder min 2 Views MR#: [id number] Acct: [id number] Name: IFTIKHAR FLEMING Rep #: [id number] : 1965 M Karine From: Doyle Cabrera PCP: Dr. Mary Dumont MD Status: REG CLI Study: Shoulder min 2 Views Date of Exam: 05/17/25 Exam# [id number] Ordering Dr: Kenan Loya MD PROCEDURE: SHOULDER MIN 2 VIEWS 05/17/2025 REASON FOR EXAM: BILATERAL SHOULDER PAIN TECHNIQUE: Four view right shoulder series and four view left shoulder series (combined dictation). COMPARISON: Left shoulder study 09/25/2021. RAD/Shoulder min 2 Views IMPRESSION: In the edge of imaging, prior lower cervical surgery is seen. Bdtw-ul-xcdhfohe degenerative changes of the visualized spine are seen. The right acromioclavicular joint demonstrates qtwq-pm-qjlgqlga degenerative changes. Minimal right glenohumeral joint degenerative changes are noted. No acute fracture or dislocation is seen. The left acromioclavicular joint demonstrates moderate degenerative changes, progressed since 2020. Minimal left glenohumeral joint degenerative changes are noted. No acute fracture or dislocation is seen. Reading Location: [place] [address] CC: Dr. Mary Dumont MD; Dr. Kenan Loya MD Product Safety Head: Signed Normal [facility] MR/BMS.IMBon 03-10-2025 MR/BMS.IMB [facility] [address] [place] [address] OFFICE VISIT Date of Service: 03/10/25 MR#: [id number] Acct: [id number] Name: IFTIKHAR FLEMING Rep #: [id number] : 1965 Provider: Dr. 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 Required: No Accompanied by: Self Is patient in pain?: Yes (Bilateral legs, arms, back ) Pain scale (1-10): 4 Allergies tree and shrub pollen Allergy (Verified 03/10/25 09:51) Unknown duloxetine (From Cymbalta) Adverse Reaction (Severe, Verified 03/10/25 09:51) Other amlodipine Adverse Reaction (Intermediate, Verified 03/10/25 09:51) Lips tingling, feels strange nifedipine Adverse Reaction (Intermediate, Verified 03/10/25 09:51) Palpitations, SOB, depressed mood Medications ???Medication ???Instructions ???Recorded ???Confirmed ???Type Handicap Placard #1 ea 01/03/23 03/10/25 Rx cyanocobalamin (B12)-cobamamide 1 danial sublingual DAILY 02/11/24 History 5,000 mcg-100 mcg sublingual lozenge (B12) calcium carbonate 600 mg PO DAILY 04/06/24 03/10/25 History lisinopril 40 mg tablet 40 mg PO DAILY #90 tabs 04/22/24 0 03/10/25 Rx hydrochlorothiazide 25 mg tablet 25 mg PO DAILY htn #90 tabs 03/10/25 Rx icosapent ethyl 1 gram capsule 2 g (2 x 1 gram) PO BID 1 month 03/10/25 Rx (Vascepa) #120 caps pantoprazole 40 mg tablet,delayed 40 mg PO QAM acid reflux 90 days 10/16/24 03/10/25 Rx release #90 tabs cholecalciferol (vitamin D3) 1,250 1,250 mcg PO .every other week # 6 11/17/24 03/10/25 Rx mcg (50,000 unit) capsule caps metoprolol tartrate 50 mg tablet 50 mg PO BID htn #180 tabs 5 03/10/25 Rx lorazepam 1 mg tablet 1 mg PO DAILY PRN Anxiety #30 tabs 01/04/25 03/10/25 Rx rosuvastatin 10 mg tablet 10 mg PO DAILY 1 month #30 tabs 03/10/25 Rx diphenhydramine-zinc acetate 1 1 applic topical BID PRN 03/10/25 History %-0.1 % topical cream (Benadryl Itch Stopping) [facility] Medical History Dental root implant present Polyneuropathy S/P neck surgery, follow-up exam Abdominal pain MADELEINE (obstructive sleep apnea) Diarrhea Cervical myelopathy Hyperammonemia Wears glasses Ambulates with cane Fatty liver High cholesterol Back pain Difficulty swallowing Gastric reflux CPAP (continuous positive airway pressure) dependence Sleep apnea Shortness of breath on exertion Former smoker Leg cramps Cardiology follow-up encounter History of stress test Dyslipidemia Chest pain Sleep apnea Hereditary hemochromatosis Vitamin d deficiency History of IBS Elevated LFTs Encounter for wellness examination in adult Fatigue Depression Hyperglycemia Hand weakness Neck pain Low back pain Numbness and tingling of both legs Left temporomandibular joint disorder, unspecified Idiopathic peripheral neuropathy Impingement syndrome, shoulder, left Skin lesion of back Left chest pressure Dyspnea on exertion Chronic lumbar radiculopathy Neck and shoulder pain New onset of headaches Neuropathy Hypertriglyceridemia Hypertension Gastrointestinal problem Back problem Arthritis Seasonal allergies Psoriasis Anxiety Hypertension Surgical History History of surgery History of tonsillectomy History of hernia surgery History of colonoscopy History of back surgery Family History Sister MADELEINE (obstructive sleep apnea) Other Alcoholism Depression Diabetes Hypertension Myocardial infarction Social History Smoking Status: Former smoker second hand exposure: No alcohol intake: never substance use type: does not use what type of physical activity do you participate in: none jordan/bahai: None seatbelt use: always HPI HPI Chief Complaint: 6 M FU Details: IFTIKHAR FLEMING, is a 59 M who presents to the office today for 6-month follow-up. 51-year-old gentleman has a history of sleep apnea, lumbar radiculopathy, chronic, status post surgery, following with [facility]. Likewise cervical radiculopathy, status post surgery, following with [facility]. He notes he has been having some increasing arm pains once aga (more content not included)... Normal [facility] CBC W/Diff, Automatedon 06-0 -2024 Absolute Lymph 2.08 X10 3/uL Normal 0.83-4.51 [facility] Comment on above: Performed By: #### L 503.6550, L500.4050, L100.0100 #### [facility] [address] [place], [address] Absolute Neut 8.8 X10 3/uL High 2.0-7.7 [facility] Comment on above: Performed By: #### L 503.6550, L500.4050, L100.0100 #### [facility] [address] [place], [address] Basophils/100 WBC (Bld) 0.4 % Normal 0-1 [facility] Comment on above: Performed By: #### L 503.6550, L500.4050, L100.0100 #### [facility] [address] [place], [address] Eosinophils/100 WBC (Bld) 1.8 % Normal 0-5 [facility] Comment on above: Performed By: #### L 503.6550, L500.4050, L100.0100 #### [facility] [address] [place], [address] Erythrocyte distribution width (RBC) [Ratio] 12.4 % Normal 11.6-14.6 [facility] Comment on above: Performed By: #### L 503.6550, L500.4050, L100.0100 #### [facility] [address] [place], [address] Hematocrit (Bld) [Volume fraction] 45.4 % Normal 40-54 [facility] Comment on above: Performed By: #### L 503.6550, L500.4050, L100.0100 #### [facility] [address] [place], [address] Hemoglobin (Bld) [Mass/Vol] 15.8 g/dL Normal 13.0-16.5 [facility] Comment on above: Performed By: #### L 503.6550, L500.4050, L100.0100 #### [facility] [address] [place], [address] IG% 0.400 Normal 0.0-0.9 [facility] Comment on above: Result Comment: IG% - Immature Granulocytes (promyelocytes, myelocytes and metamyelocytes) > 1% indicates that a LEFT SHIFT is Present. Performed By: #### L 503.6550, L500.4050, L100.0100 #### [facility] [address] [place], [address] Lymphocytes/100 WBC (Bld) 17.4 % Low 19-41 [facility] Comment on above: Performed By: #### L 503.6550, L500.4050, L100.0100 #### [facility] [address] [place], [address] MCH (RBC) [Entitic mass] 31.7 pg Normal 27.0-32.0 [facility] Comment on above: Performed By: #### L 503.6550, L500.4050, L100.0100 #### [facility] [address] [place], [address] MCHC (RBC) [Mass/Vol] 34.8 g/dL Normal 32-36 [facility] Comment on above: Performed By: #### L 503.6550, L500.4050, L100.0100 #### [facility] [address] [place], [address] MCV (RBC) [Entitic vol] 91.2 fL Normal 80-94 [facility] Comment on above: Performed By: #### L 503.6550, L500.4050, L100.0100 #### [facility] [address] [place], [address] Monocytes/100 WBC (Bld) 6.4 % Normal 0-10 [facility] Comment on above: Performed By: #### L 503.6550, L500.4050, L100.0100 #### [facility] [address] [place], [address] Neutrophils/100 WBC (Bld) 73.6 % High 47-70 [facility] Comment on above: Performed By: #### L 503.6550, L500.4050, L100.0100 #### [facility] [address] [place], [address] Nucleated RBC (Bld) [#/Vol] 0 10*3/uL Normal 0-5 [facility] Comment on above: Performed By: #### L 503.6550, L500.4050, L100.0100 #### [facility] [address] [place], [address] Platelet mean volume (Bld) [Entitic vol] 9.0 fL Normal 6.2-12.0 [facility] Comment on above: Performed By: #### L 503.6550, L500.4050, L100.0100 #### [facility] [address] [place], [address] Platelets (Bld) [#/Vol] 231 10*3/uL Normal 150-450 [facility] Comment on above: Performed By: #### L 503.6550, L500.4050, L100.0100 #### [facility] [address] [place], [address] RBC (Bld) [#/Vol] 4.98 10*6/uL Normal 4.6-6.2 [facility] Comment on above: Performed By: #### L 503.6550, L500.4050, L100.0100 #### [facility] [address] [place], [address] RDW SD 41.1 fl Normal 35.1-43.9 [facility] Comment on above: Performed By: #### L 503.6550, L500.4050, L100.0100 #### [facility] [address] [place], [address] WBC (Bld) [#/Vol] 12.0 10*3/uL High 4.4-11.0 [facility] Comment on above: Performed By: #### L 503.6550, L500.4050, L100.0100 #### [facility] [address] [place], [address] Comprehensive Metabolic Prof ilon 03-08-2025 Albumin [Mass/Vol] 4.5 g/dL Normal 3.5-5.0 [facility] Comment on above: Performed By: #### L 503.6550, L500.4050, L100.0100 #### [facility] [address] [place], [address] Albumin/Globulin [Mass ratio] 1.7 {ratio} Normal 0.9-2.4 [facility] Comment on above: Performed By: #### L 503.6550, L500.4050, L100.0100 #### [facility] [address] [place], [address] ALK PHOS 76 U/L Normal 40-129 [facility] Comment on above: Performed By: #### L 503.6550, L500.4050, L100.0100 #### [facility] [address] [place], [address] ALT [Catalytic activity/Vol] 34 U/L Normal <=46 [facility] Comment on above: Performed By: #### L 503.6550, L500.4050, L100.0100 #### [facility] [address] [place], [address] AST [Catalytic activity/Vol] 30 U/L Normal <=37 [facility] Comment on above: Performed By: #### L 503.6550, L500.4050, L100.0100 #### [facility] [address] [place], [address] Bilirubin [Mass/Vol] 0.36 mg/dL Normal 0.00-1.30 [facility] Comment on above: Performed By: #### L 503.6550, L500.4050, L100.0100 #### [facility] [address] [place], [address] BUN/CRE 21.5 RATIO High 10-20 [facility] Comment on above: Performed By: #### L 503.6550, L500.4050, L100.0100 #### [facility] [address] [place], [address] Calcium [Mass/Vol] 9.5 mg/dL Normal 7.6-11.0 [facility] Comment on above: Performed By: #### L 503.6550, L500.4050, L100.0100 #### [facility] [address] [place], [address] Chloride [Moles/Vol] 100 mmol/L Normal 98-108 [facility] Comment on above: Performed By: #### L 503.6550, L500.4050, L100.0100 #### [facility] [address] [place], [address] CO2 [Moles/Vol] 24.7 mmol/L Normal 21.0-32.0 [facility] Comment on above: Performed By: #### L 503.6550, L500.4050, L100.0100 #### [facility] [address] [place], [address] Creatinine [Mass/Vol] 0.80 mg/dL Normal 0.70-1.20 [facility] Comment on above: Performed By: #### L 503.6550, L500.4050, L100.0100 #### [facility] [address] [place], [address] ECRCL 103.92 ml/min Normal 50-250 [facility] Comment on above: Performed By: #### L 503.6550, L500.4050, L100.0100 #### [facility] [address] [place], [address] GAP 12 Normal 5-15 [facility] Comment on above: Performed By: #### L 503.6550, L500.4050, L100.0100 #### [facility] [address] [place], [address] GFR/1.73 sq M.predicted among non-blacks MDRD (S/P/Bld) [Vol rate/Area] 103 mL/min/{1.73_m2} Normal >60 [facility] Comment on above: Result Comment: mL/m in/1.73m2 CKD-EPI Creatinine Equation (2020) Performed By: #### L 503.6550, L500.4050, L100.0100 #### [facility] [address] [place], [address] Globulin (S) [Mass/Vol] 2.6 g/dL Normal 2.2-4.2 [facility] Comment on above: Performed By: #### L 503.6550, L500.4050, L100.0100 #### [facility] [address] [place], [address] Glucose [Mass/Vol] 116 mg/dL High 70-99 [facility] Comment on above: Performed By: #### L 503.6550, L500.4050, L100.0100 #### [facility] [address] [place], [address] Potassium [Moles/Vol] 4.2 mmol/L Normal 3.3-5.1 [facility] Comment on above: Performed By: #### L 503.6550, L500.4050, L100.0100 #### [facility] [address] [place], [address] Sodium [Moles/Vol] 137 mmol/L Normal 133-145 [facility] Comment on above: Performed By: #### L 503.6550, L500.4050, L100.0100 #### [facility] [address] [place], [address] T PROT 7.2 g/dL Normal 5.9-8.4 [facility] Comment on above: Performed By: #### L 503.6550, L500.4050, L100.0100 #### [facility] [address] [place], [address] Urea nitrogen [Mass/Vol] 17 mg/dL Normal 4-19 [facility] Comment on above: Performed By: #### L 503.6550, L500.4050, L100.0100 #### [facility] [address] [place], [address] Ferritinon 03-08-2025 Ferritin [Mass/Vol] 34 ng/mL Low 37-417 [facility] Comment on above: Performed By: #### L 505.5000, L3410.9998 #### [facility] [address] [place], [address] Oncology Visit Reporton Oncology Visit Report [facility] [address] [place] [address] OFFICE VISIT Date of Service: 03/08/25 1350 MR#: [id number] Acct: [id number] Name: IFTIKHAR FLEMING Rep #: [id number] : 1965 From: Aleida Narayan NP LO[employer]NER -C Age/Sex: 59/M Location: [facility] [place] Status: Signed HPI Subjective Date of Service 03/08/25 Chief Complaint HH History of Present Illness 59-year-old gentleman evaluated for abnormal liver enzymes and found to have elevated iron parameters, see lab. He was recently diagnosed with prediabetes, has nonspecific chronic back pain, erectile dysfunction but fathered a 30-year-old son and did not attempt for more children. No family history of hereditary hemochromatosis. 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 Underwent therapeutic phlebotomy last on December 14, 2024. Reports he experienced fatigue x 1 week after last phlebotomy. Follows with GI. [facility] Medical History Dental root implant present Polyneuropathy S/P neck surgery, follow-up exam Abdominal pain MADELEINE (obstructive sleep apnea) Diarrhea Cervical myelopathy Hyperammonemia Wears glasses Ambulates with cane Fatty liver High cholesterol Back pain Difficulty swallowing Gastric reflux CPAP (continuous positive airway pressure) dependence Sleep apnea Shortness of breath on exertion Former smoker Leg cramps Cardiology follow-up encounter History of stress test Dyslipidemia Chest pain Sleep apnea Hereditary hemochromatosis Vitamin d deficiency History of IBS Elevated LFTs Encounter for wellness examination in adult Fatigue Depression Hyperglycemia Hand weakness Neck pain Low back pain Numbness and tingling of both legs Left temporomandibular joint disorder, unspecified Idiopathic peripheral neuropathy Impingement syndrome, shoulder, left Skin lesion of back Left chest pressure Dyspnea on exertion Chronic lumbar radiculopathy Neck and shoulder pain New onset of headaches Neuropathy Hypertriglyceridemia Hypertension Gastrointestinal problem Back problem Arthritis Seasonal allergies Psoriasis Anxiety Hypertension Surgical History History of surgery History of tonsillectomy History of hernia surgery History of colonoscopy History of back surgery Family History Sister MADELEINE (obstructive sleep apnea) Other Alcoholism Depression Diabetes Hypertension Myocardial infarction Social History Smoking Status: Former smoker second hand exposure: No alcohol intake: never substance use type: does not use what type of physical activity do you participate in: none jordan/bahai: None seatbelt use: always ROS ROS Narrative Negative except as documented in the interval HPI Intake Vital Signs 12/14/24 14:03 03/08/25 13:51 03/08/25 13:57 Height 5 ft 10 in 5 ft 10 in 5 ft 10 in Weight: 179 lb 2 oz BMI 25.7 BP 132/79 H Blood Pressure Location Lt brachial Position Sitting Respiration 16 Pulse 70 Pulse Source Monitor Temp 98.4 F Temperature Source Temporal Artery Pulse Oximetry (%) 98 Oxygen Delivery Method room air Intake Is patient in pain?: No Allergies tree and shrub pollen Allergy (Verified 03/08/25 13:58) Unknown duloxetine (From Cymbalta) Adverse Reaction (Severe, Verified 03/08/25 13:58) Other amlodipine Adverse Reaction (Intermediate, Verified 03/08/25 13:58) Lips tingling, feels strange nifedipine Adverse Reaction (Intermediate, Verified 03/08/25 13:58) Palpitations, SOB, depressed mood Medications ???Medication ???Instructions ???Recorded ???Confirmed ???Type Handicap Placard #1 ea 01/03/23 03/08/25 Rx cyanocobalamin (B12)-cobamamide 1 danial sublingual DAILY 02/11/24 History 5,000 mcg-100 mcg sublingual lozenge (B12) calcium carbonate 600 mg PO DAILY 04/06/24 03/08/25 History diphenhydramine-zinc acetate 1 1 applic topical BID #28.3 grams 0 04/22/24 03/08/25 Rx %-0.1 % topical cream (Benadryl Itch Stopping) lisinopril 40 mg tablet 40 mg PO DAILY #90 tabs 04/22/24 0 03/08/25 Rx hydrochlorothiazide 25 mg tablet 25 mg PO DAILY htn #90 tabs 03/08/25 Rx icosapent ethyl 1 gram capsule 2 g (2 x 1 gram) PO BID 1 month 03/08/25 Rx (Vascepa) #120 caps pantoprazole 40 mg tablet,delayed 40 mg PO QAM acid reflux 90 days 10/16/24 03/08/25 Rx release #90 tabs cholecalciferol (vitamin D3) 1,250 1,250 mcg PO .every other week (more content not included)... Normal [facility] L3410.9992on 02-18-2025 [facility]. COMMENT Normal . [facility] Comment on above: Order Comment: [id number] URINE TOX Result Comment: Test Ordered: [id number] Enhanced Liver Fibrosis (ELF) ELF(TM) Score 9.51 Reference Range: <9.80 ELF(TM) Score Interpretation: Risk cut-offs to assess the likelihood of progression to cirrhosis and liver-related clinical events within 3.9 years following baseline ELF score (IQR: 14.0-22.4 months)*: Lower risk < 9.80 Mid risk 9.80 - 11.29 Higher risk >11.29 Note: The ELF(TM) Score is a unitless numerical value. *Yogesh SANTORO, Dirk NORRIS, Sim T, et al. Selonsertib for patients with bridging fibrosis or compensated cirrhosis due to MARTINEZ: Results from randomized phase III STELLAR trials. J Hepatol. 2020 Mar;73(1):26-39. Performed at: [facility] [id number] Manager Oncology: Jerman Ibanez MD, Phone: [phone] Performed at: [facility] [id number] Manager Oncology: Ld Samaniego PhD, Phone: [phone] Performed By: #### L 505.5000, L3410.9998 #### [facility] [address] [place], [place], [id number] Gastroenterology Visit Repor ton 02-16-2025 Gastroenterology Visit Report [facility] [address] [place] [address] OFFICE VISIT Date of Service: 02/16/25 MR#: [id number] Acct: [id number] Name: IFTIKHAR FLEMING Rep #: [id number] : 1965 Provider: Dr. Wyatt cabrera MD Age/Sex: 59/M [place] [facility] [place] Status: Signed Intake Vital Signs 12/07/24 13:59 12/14/24 14:59 02/16/25 10:24 Height 5 ft 10 in 5 ft 10 in 5 ft 10 in Weight: 176 lb BMI 25.2 BP 137/90 H Blood Pressure Location Rt brachial Position Sitting Pulse 62 Pulse Oximetry (%) 95 Intake Visit Reasons: 4 M FU Allergies tree and shrub pollen Allergy (Verified 02/16/25 09:29) Unknown duloxetine (From Cymbalta) Adverse Reaction (Severe, Verified 02/16/25 09:29) Other amlodipine Adverse Reaction (Intermediate, Verified 02/16/25 09:29) Lips tingling, feels strange nifedipine Adverse Reaction (Intermediate, Verified 02/16/25 09:29) Palpitations, SOB, depressed mood Medications ???Medication ???Instructions ???Recorded ???Confirmed ???Type Handicap Placard #1 ea 01/03/23 02/16/25 Rx cyanocobalamin (B12)-cobamamide 1 danial sublingual DAILY 02/11/24 History 5,000 mcg-100 mcg sublingual lozenge (B12) magnesium 200 mg tablet 200 mg PO DAILY 02/11/24 02/16/25 History calcium carbonate 600 mg PO DAILY 04/06/24 02/16/25 History diphenhydramine-zinc acetate 1 1 applic topical BID #28.3 grams 0 04/22/24 02/16/25 Rx %-0.1 % topical cream (Benadryl Itch Stopping) lisinopril 40 mg tablet 40 mg PO DAILY #90 tabs 04/22/24 0 02/16/25 Rx hydrochlorothiazide 25 mg tablet 25 mg PO DAILY htn #90 tabs 02/16/25 Rx icosapent ethyl 1 gram capsule 2 g (2 x 1 gram) PO BID 1 month 02/16/25 Rx (Vascepa) #120 caps pantoprazole 40 mg tablet,delayed 40 mg PO QAM acid reflux 90 days 10/16/24 02/16/25 Rx release #90 tabs cholecalciferol (vitamin D3) 1,250 1,250 mcg PO .every other week # 6 11/17/24 02/16/25 Rx mcg (50,000 unit) capsule caps metoprolol tartrate 50 mg tablet 50 mg PO BID htn #180 tabs 5 02/16/25 Rx lorazepam 1 mg tablet 1 mg PO DAILY PRN Anxiety #30 tabs 01/04/25 02/16/25 Rx rosuvastatin 10 mg tablet 10 mg PO DAILY 1 month #30 tabs 02/16/25 Rx PFSH Medical History Dental root implant present Polyneuropathy S/P neck surgery, follow-up exam Abdominal pain MADELEINE (obstructive sleep apnea) Diarrhea Cervical myelopathy Hyperammonemia Wears glasses Ambulates with cane Fatty liver High cholesterol Back pain Difficulty swallowing Gastric reflux CPAP (continuous positive airway pressure) dependence Sleep apnea Shortness of breath on exertion Former smoker Leg cramps Cardiology follow-up encounter History of stress test Dyslipidemia Chest pain Sleep apnea Hereditary hemochromatosis Vitamin d deficiency History of IBS Elevated LFTs Encounter for wellness examination in adult Fatigue Depression Hyperglycemia Hand weakness Neck pain Low back pain Numbness and tingling of both legs Left temporomandibular joint disorder, unspecified Idiopathic peripheral neuropathy Impingement syndrome, shoulder, left Skin lesion of back Left chest pressure Dyspnea on exertion Chronic lumbar radiculopathy Neck and shoulder pain New onset of headaches Neuropathy Hypertriglyceridemia Hypertension Gastrointestinal problem Back problem Arthritis Seasonal allergies Psoriasis Anxiety Hypertension Surgical History History of surgery History of tonsillectomy History of hernia surgery History of colonoscopy History of back surgery Family History Sister MADELEINE (obstructive sleep apnea) Other Alcoholism Depression Diabetes Hypertension Myocardial infarction Social History Smoking Status: Former smoker second hand exposure: No alcohol intake: never substance use type: does not use what type of physical activity do you participate in: none jordan/bahai: None seatbelt use: always HPI HPI Details: IFTIKHAR FLEMING, is a 59 M who presents to the office today for follow up. *BGI established 5.25.23 with lower abdominal pain, bloating, loose/watery stools which can get better and worse: severe symptoms present approximately every 3-4 months with chronic diarrhea on a daily basis minimally 4 times. Cymbalta attempted for anxiety/depression though felt it caused GI distress and was stopped. Probiotic attempted and felt it caused abdominal pain. Recalls a medication in the past that was taken for this that he had a reaction to. Biochemical CBC, ESR, coa (more content not included)... Normal [facility] Hemoglobin A1con 02-16-2025 HbA1c (Bld) [Mass fraction] 6.1 % High <=5.6 [facility] Comment on above: Result Comment: Norm al < 5.7 % Prediabetic 5.7 - 6.4 % Diabetic >or= 6.5 % Please note range changes. Performed By: #### L 887.9200 #### [facility] [address] [place], [address] CBC W/Diff, Automatedon 01-28 Absolute Lymph 2.07 X10 3/uL Normal 0.83-4.51 [facility] Comment on above: Performed By: #### L 505.5000, L3410.9998 #### [facility] [address] [place], [address] Absolute Neut 4.9 X10 3/uL Normal 2.0-7.7 [facility] Comment on above: Performed By: #### L 505.5000, L3410.9998 #### [facility] [address] [place], [address] Basophils/100 WBC (Bld) 0.5 % Normal 0-1 [facility] Comment on above: Performed By: #### L 505.5000, L3410.9998 #### [facility] [address] [place], [address] Eosinophils/100 WBC (Bld) 2.9 % Normal 0-5 [facility] Comment on above: Performed By: #### L 505.5000, L3410.9998 #### [facility] [address] [place], [address] Erythrocyte distribution width (RBC) [Ratio] 12.8 % Normal 11.6-14.6 [facility] Comment on above: Performed By: #### L 505.5000, L3410.9998 #### [facility] [address] [place], [address] Hematocrit (Bld) [Volume fraction] 44.9 % Normal 40-54 [facility] Comment on above: Performed By: #### L 505.5000, L3410.9998 #### [facility] [address] [place], [address] Hemoglobin (Bld) [Mass/Vol] 15.8 g/dL Normal 13.0-16.5 [facility] Comment on above: Performed By: #### L 505.5000, L3410.9998 #### [facility] [address] [place], [address] IG% 0.400 Normal 0.0-0.9 [facility] Comment on above: Result Comment: IG% - Immature Granulocytes (promyelocytes, myelocytes and metamyelocytes) > 1% indicates that a LEFT SHIFT is Present. Performed By: #### L 505.5000, L3410.9998 #### [facility] [address] [place], [address] Lymphocytes/100 WBC (Bld) 25.7 % Normal 19-41 [facility] Comment on above: Performed By: #### L 505.5000, L3410.9998 #### [facility] [address] [place], [address] MCH (RBC) [Entitic mass] 32.2 pg High 27.0-32.0 [facility] Comment on above: Performed By: #### L 505.5000, L3410.9998 #### [facility] [address] [place], [address] MCHC (RBC) [Mass/Vol] 35.2 g/dL Normal 32-36 [facility] Comment on above: Performed By: #### L 505.5000, L3410.9998 #### [facility] [address] [place], [address] MCV (RBC) [Entitic vol] 91.4 fL Normal 80-94 [facility] Comment on above: Performed By: #### L 505.5000, L3410.9998 #### [facility] [address] [place], [address] Monocytes/100 WBC (Bld) 10.3 % High 0-10 [facility] Comment on above: Performed By: #### L 505.5000, L3410.9998 #### [facility] [address] [place], [address] Neutrophils/100 WBC (Bld) 60.2 % Normal 47-70 [facility] Comment on above: Performed By: #### L 505.5000, L3410.9998 #### [facility] [address] [place], [address] Nucleated RBC (Bld) [#/Vol] 0 10*3/uL Normal 0-5 [facility] Comment on above: Performed By: #### L 505.5000, L3410.9998 #### [facility] [address] [place], [address] Platelet mean volume (Bld) [Entitic vol] 8.8 fL Normal 6.2-12.0 [facility] Comment on above: Performed By: #### L 505.5000, L3410.9998 #### [facility] [address] [place], [address] Platelets (Bld) [#/Vol] 206 10*3/uL Normal 150-450 [facility] Comment on above: Performed By: #### L 505.5000, L3410.9998 #### [facility] [address] [place], [address] RBC (Bld) [#/Vol] 4.91 10*6/uL Normal 4.6-6.2 [facility] Comment on above: Performed By: #### L 505.5000, L3410.9998 #### [facility] [address] [place], [address] RDW SD 42.8 fl Normal 35.1-43.9 [facility] Comment on above: Performed By: #### L 505.5000, L3410.9998 #### [facility] [address] [place], [address] WBC (Bld) [#/Vol] 8.1 10*3/uL Normal 4.4-11.0 [facility] Comment on above: Performed By: #### L 505.5000, L3410.9998 #### [facility] [address] [place], [address] CRPon 02-15-2025 C-REACTIVE PROT 4.69 mg/L High 0.0-3.0 [facility] Comment on above: Performed By: #### L 505.5000, L3410.9998 #### [facility] [address] [place], [address] Comprehensive Metabolic Prof ilon 02-15-2025 Albumin [Mass/Vol] 4.6 g/dL Normal 3.5-5.0 [facility] Comment on above: Order Comment: UNK Performed By: #### L 505.5000, L3410.9998 #### [facility] [address] [place], [address] Albumin/Globulin [Mass ratio] 1.7 {ratio} Normal 0.9-2.4 [facility] Comment on above: Order Comment: UNK Performed By: #### L 505.5000, L3410.9998 #### [facility] [address] [place], [address] ALK PHOS 71 U/L Normal 40-129 [facility] Comment on above: Order Comment: UNK Performed By: #### L 505.5000, L3410.9998 #### [facility] [address] [place], [address] ALT [Catalytic activity/Vol] 25 U/L Normal <=46 [facility] Comment on above: Order Comment: UNK Performed By: #### L 505.5000, L3410.9998 #### [facility] [address] [place], [address] AST [Catalytic activity/Vol] 27 U/L Normal <=37 [facility] Comment on above: Order Comment: UNK Performed By: #### L 505.5000, L3410.9998 #### [facility] [address] [place], [address] Bilirubin [Mass/Vol] 0.41 mg/dL Normal 0.00-1.30 [facility] Comment on above: Order Comment: UNK Performed By: #### L 505.5000, L3410.9998 #### [facility] [address] [place], [address] BUN/CRE 26.4 RATIO High 10-20 [facility] Comment on above: Order Comment: UNK Performed By: #### L 505.5000, L3410.9998 #### [facility] [address] [place], [address] Calcium [Mass/Vol] 9.5 mg/dL Normal 7.6-11.0 [facility] Comment on above: Order Comment: UNK Performed By: #### L 505.5000, L3410.9998 #### [facility] [address] [place], [address] Chloride [Moles/Vol] 97 mmol/L Low 98-108 [facility] Comment on above: Order Comment: UNK Performed By: #### L 505.5000, L3410.9998 #### [facility] [address] [place], [address] CO2 [Moles/Vol] 26.5 mmol/L Normal 21.0-32.0 [facility] Comment on above: Order Comment: UNK Performed By: #### L 505.5000, L3410.9998 #### [facility] [address] [place], [address] Creatinine [Mass/Vol] 0.77 mg/dL Normal 0.70-1.20 [facility] Comment on above: Order Comment: UNK Performed By: #### L 505.5000, L3410.9998 #### [facility] [address] [place], [address] GAP 10 Normal 5-15 [facility] Comment on above: Order Comment: UNK Performed By: #### L 505.5000, L3410.9998 #### [facility] [address] [place], [address] GFR/1.73 sq M.predicted among non-blacks MDRD (S/P/Bld) [Vol rate/Area] 104 mL/min/{1.73_m2} Normal >60 [facility] Comment on above: Order Comment: UNK Result Comment: mL/m in/1.73m2 CKD-EPI Creatinine Equation (2020) Performed By: #### L 505.5000, L3410.9998 #### [facility] [address] [place], [address] Globulin (S) [Mass/Vol] 2.6 g/dL Normal 2.2-4.2 [facility] Comment on above: Order Comment: UNK Performed By: #### L 505.5000, L3410.9998 #### [facility] [address] [place], [address] Glucose [Mass/Vol] 134 mg/dL High 70-99 [facility] Comment on above: Order Comment: UNK Performed By: #### L 505.5000, L3410.9998 #### [facility] [address] [place], [address] Potassium [Moles/Vol] 4.4 mmol/L Normal 3.3-5.1 [facility] Comment on above: Order Comment: UNK Performed By: #### L 505.5000, L3410.9998 #### [facility] [address] [place], [address] Sodium [Moles/Vol] 133 mmol/L Normal 133-145 [facility] Comment on above: Order Comment: UNK Performed By: #### L 505.5000, L3410.9998 #### [facility] [address] [place], [address] T PROT 7.2 g/dL Normal 5.9-8.4 [facility] Comment on above: Order Comment: UNK Performed By: #### L 505.5000, L3410.9998 #### [facility] [address] [place], [address] Urea nitrogen [Mass/Vol] 20 mg/dL High 01-16 [facility] Comment on above: Order Comment: UNK Performed By: #### L 505.5000, L3410.9998 #### [facility] [address] [place], [address] Lipid Profileon 02-15-2025 CHOL:HDL 4.99 Normal [facility] Comment on above: Performed By: #### L 505.5000, L3410.9998 #### [facility] [address] [place], [address] Cholesterol [Mass/Vol] 216 mg/dL High <=200 [facility] Comment on above: Result Comment: Chol esterol level, Desirable <200 mg/dL Borderline high cholesterol 200-239 mg/dL High cholesterol >=240 mg/dL Recommendations of the NCEP Adult Treatment Panel for the following risk-cutoff thresholds for the [place] population. Performed By: #### L 505.5000, L3410.9998 #### [facility] [address] [place], [address] Cholesterol in HDL [Mass/Vol] 43 mg/dL Normal [facility] Comment on above: Result Comment: Susy onal Cholesterol Education Program (NCEP) guidelines: <40 mg/dL: Low HDL-cholesterol (major risk factor for CHD) >= 60 mg/dL: High HDL-cholesterol (negative risk factor for CHD) HDL-cholesterol is affected by a number of factors, e.g. smoking, exercise, hormones, sex and age. Performed By: #### L 505.5000, L3410.9998 #### [facility] [address] [place], [address] Cholesterol in LDL [Mass/Vol] 150 mg/dL Normal [facility] Comment on above: Result Comment: Bord hspobv=175-812 mg/dL Higher Xipy=671 mg/dL or greater Performed By: #### L 505.5000, L3410.9998 #### [facility] [address] [place], [address] Cholesterol in VLDL [Mass/Vol] 23 mg/dL Normal 5-40 [facility] Comment on above: Performed By: #### L 505.5000, L3410.9998 #### [facility] [address] [place], [address] Triglyceride [Mass/Vol] 114 mg/dL Normal [facility] Comment on above: Result Comment: The drugs N-Acetylcysteine and Metamizole may falsely depress this assay. Normal range: <150 mg/dL Borderline High: 150-199 mg/dL High: 200-499 mg/dL Very High: >500 mg/dL Performed By: #### L 505.5000, L3410.9998 #### [facility] [address] [place], [address] Prothrombin Time w/INRon INR Coag (PPP) [Relative time] 1.0 {INR} Normal [facility] Comment on above: Performed By: #### L 505.5000, L3410.9998 #### [facility] [address] [place], [address] PT Coag (PPP) [Time] 13.6 s Normal 11.7-14.9 [facility] Comment on above: Performed By: #### L 505.5000, L3410.9998 #### [facility] [address] [place], [address] [facility] Misc.on 01-13-2025 [facility] Misc. Normal [facility] Comment on above: Order Comment: [id number] 3MEDTOX Result Comment: TEST RESULTS LIMITS 634262 [id number] Amphetamines Screen, Urine Negative ng/mL Dkkioe=873 Amphetamine test includes Amphetamine and Methamphetamine. Barbiturates Negative ng/mL Mplekj=311 Benzodiazepines Negative ng/mL Ynrteq=072 Cocaine (Metab.), Urine Negative ng/mL Zrjyoo=586 Opiates Negative ng/mL Fizwyr=244 Opiate test includes Codeine, Morphine, Hydromorphone, Hydrocodone. 6-Acetylmorphine, Urine Negative ng/mL Cutoff=10 Oxycodone/Oxymorphone, Urine Negative ng/mL Diyqni=751 Test includes Oxycodone and Oxymorphone PCP, Urine Negative ng/mL Cutoff=25 Methadone Screen, Urine Negative ng/mL Jsuxdu=756 Propoxyphene, Urine Negative ng/mL Autpxr=421 Fentanyl, Urine Negative ng/mL Cutoff=2.0 Test includes Fentanyl and Norfentanyl This test was developed and its performance characteristics determined by [facility]. It has not been cleared or approved by the Food and Drug Administration. Tramadol Negative ng/mL Zyibim=971 Buprenorphine, Urine Negative ng/mL Cutoff=10 Creatinine, Urine 68.8 mg/dL 20.0-300.0 pH, Urine 6.7 4.5-8.9 TESTING PERFORMED AT [facility]. ORIGINAL REPORT ON FILE IN LAB CONTAINS ADDITIONAL TEST SITE INFORMATION. Performed By: #### L 501.9985 #### [facility] [address] [place], [address] [facility].on 01-11-2025 [facility]. COMMENT Normal . [facility] Comment on above: Order Comment: 53674 8 TRAMEDOL Result Comment: Test Ordered: [id number] Tramadol, Urine Tramadol Screen, Urine Negative ng/mL UI Reference Range: Uttpsr=021 Performed at: - [facility] [address] [id number] Manager Oncology: Ld Samaniego PhD, Phone: [phone] Performed at: - [facility] [address] [place], [place] [id number] Manager Oncology: Melody Munoz PhD, Phone: [phone] Performed By: #### L 3410.9998 #### [facility] [address] [place], [address] Urine Drug Screen (VISTA)on 01-07-2025 AMPHETAMINES Negative Normal <1000 ng/mL [facility] Comment on above: Order Comment: UNK Performed By: #### L 501.9985 #### [facility] [address] [place], [address] BARBITIURATES Negative Normal < 200 ng/mL [facility] Comment on above: Order Comment: UNK Performed By: #### L 501.9985 #### [facility] [address] [place], [address] BENZODIAZIPINE Negative Normal < 200 ng/mL [facility] Comment on above: Order Comment: UNK Performed By: #### L 501.9985 #### [facility] [address] [place], [address] BUP Ur Drug Scr Negative Normal < 200 ng/mL [facility] Comment on above: Order Comment: UNK Performed By: #### L 501.9985 #### [facility] [address] [place], [address] COCAINE Negative Normal < 300 ng/mL [facility] Comment on above: Order Comment: UNK Performed By: #### L 501.9985 #### [facility] [address] [place], [address] Fentanyl Negative Normal [facility] Comment on above: Order Comment: UNK Performed By: #### L 501.9985 #### [facility] [address] [place], [address] METHADONE Negative Normal < 300 ng/mL [facility] Comment on above: Order Comment: UNK Performed By: #### L 501.9985 #### [facility] [address] [place], [address] OPIATES Negative Normal < 300 ng/mL [facility] Comment on above: Order Comment: UNK Performed By: #### L 501.9985 #### [facility] [address] [place], [address] OXYCODONE Negative Normal < 100 ng/mL [facility] Comment on above: Order Comment: UNK Performed By: #### L 501.9985 #### [facility] [address] [place], [address] PCP Negative Normal < 25 ng/mL [facility] Comment on above: Order Comment: UNK Performed By: #### L 501.9985 #### [facility] [address] [place], [address] THC Negative Normal < 50 ng/mL [facility] Comment on above: Order Comment: UNK Performed By: #### L 501.9985 #### [facility] [address] [place], [address] L3410.9998on 12-26-2024 [facility] Misc. COMMENT Normal . [facility] Comment on above: Order Comment: 53310 3 URINE TOX Result Comment: Test Ordered: [id number] 6+Oxycodone-Bund Amphetamines, Urine Negative ng/mL UI Reference Range: Kihyek=2885 Amphetamine test includes Amphetamine and Methamphetamine. Barbiturate Negative ng/mL UI Reference Range: Jghliv=492 Benzodiazepines Negative ng/mL UI Reference Range: Ibdyco=637 Cannabinoids Note: ng/mL UI See Final Results Reference Range: Cutoff=20 Cannabinoid Positive [A ] UI Reference Range: Cutoff=20 Carboxy THC Conf, MS, UR 16 ng/mL UI Reference Range: Cutoff=10 Cocaine (Metabolite) Negative ng/mL UI Reference Range: Zuktvd=879 Opiates Negative ng/mL UI Reference Range: Jsoiig=517 Opiate test includes Codeine, Morphine, Hydromorphone, Hydrocodone. Oxycodone/Oxymorphone, Urine Negative ng/mL UI Reference Range: Jyhuvm=291 Test includes Oxycodone and Oxymorphone Effective December 28, 2024, this test will be discontinued. Please contact your [facility] billing representative for suggested replacement test options. Performed at: [email or web address], [place], [place] [id number] Manager Oncology: Melody Munoz PhD, Phone: [phone] Performed at: [address] [id number] Manager Oncology: Ld Samaniego PhD, Phone: [phone] Performed By: #### L 505.5000, L3410.9998 #### [facility] [address] [facility] [place], [address] L3410.9998on 12-24-2024 [facility]. COMMENT Normal . [facility] Comment on above: Order Comment: 33456 8 TRAMADOL Result Comment: Test Ordered: [id number] Tramadol, Urine Tramadol Screen, Urine Negative ng/mL UI Reference Range: Lpuwen=810 Performed at: [facility] [email or web address], [place], [place] [id number] Manager Oncology: Melody Munoz PhD, Phone: [phone] Performed at: [address] [id number] Manager Oncology: Ld Samaniego PhD, Phone: [phone] Performed By: #### L 4670.9998 #### [facility] [address] [place], [address] Urine Drug Screen (VISTA)on 12-22-2024 AMPHETAMINES Negative Normal <1000 ng/mL [facility] Comment on above: Order Comment: UNK Performed By: #### L 505.5000, L3410.9998 #### [facility] [address] [place], [address] BARBITIURATES Negative Normal < 200 ng/mL [facility] Comment on above: Order Comment: UNK Performed By: #### L 505.5000, L3410.9998 #### [facility] [address] [place], [address] BENZODIAZIPINE Positive Normal < 200 ng/mL [facility] Comment on above: Order Comment: UNK Result Comment: If c onfirmation testing is needed, a separate order will be required to send out testing to the reference laboratory. Performed By: #### L 505.5000, L3410.9998 #### [facility] [address] [place], [address] BUP Ur Drug Scr Negative Normal < 200 ng/mL [facility] Comment on above: Order Comment: UNK Performed By: #### L 505.5000, L3410.9998 #### [facility] [address] [place], [address] COCAINE Negative Normal < 300 ng/mL [facility] Comment on above: Order Comment: UNK Performed By: #### L 505.5000, L3410.9998 #### [facility] [address] [place], [address] Fentanyl Negative Normal [facility] Comment on above: Order Comment: UNK Performed By: #### L 505.5000, L3410.9998 #### [facility] [address] [place], [address] METHADONE Negative Normal < 300 ng/mL [facility] Comment on above: Order Comment: UNK Performed By: #### L 505.5000, L3410.9998 #### [facility] [address] [place], [address] OPIATES Negative Normal < 300 ng/mL [facility] Comment on above: Order Comment: UNK Performed By: #### L 505.5000, L3410.9998 #### [facility] [address] [place], [address] OXYCODONE Negative Normal < 100 ng/mL [facility] Comment on above: Order Comment: UNK Performed By: #### L 505.5000, L3410.9998 #### [facility] [address] [place], [address] PCP Negative Normal < 25 ng/mL [facility] Comment on above: Order Comment: UNK Performed By: #### L 505.5000, L3410.9998 #### [facility] [address] [place], [address] THC Positive Normal < 50 ng/mL [facility] Comment on above: Order Comment: UNK Result Comment: If c onfirmation testing is needed, a separate order will be required to send out testing to the reference laboratory. Performed By: #### L 505.5000, L3410.9998 #### [facility] [address] [place], [address] CBC W/Diff, Automatedon 03- Absolute Lymph 1.90 X10 3/uL Normal 0.83-4.51 [facility] Comment on above: Order Comment: 03708 3 URINE TOX Performed By: #### L 505.5000, L3410.9998 #### [facility] [address] [place], [address] Absolute Neut 3.7 X10 3/uL Normal 2.0-7.7 [facility] Comment on above: Order Comment: 69779 3 URINE TOX Performed By: #### L 505.5000, L3410.9998 #### [facility] [address] [place], [address] Basophils/100 WBC (Bld) 0.5 % Normal 0-1 [facility] Comment on above: Order Comment: 55414 3 URINE TOX Performed By: #### L 505.5000, L3410.9998 #### [facility] [address] [place], [address] Eosinophils/100 WBC (Bld) 3.1 % Normal 0-5 [facility] Comment on above: Order Comment: 99151 3 URINE TOX Performed By: #### L 505.5000, L3410.9998 #### [facility] [address] [place], [address] Erythrocyte distribution width (RBC) [Ratio] 13.3 % Normal 11.6-14.6 [facility] Comment on above: Order Comment: 96360 3 URINE TOX Performed By: #### L 505.5000, L3410.9998 #### [facility] [address] [place], [address] Hematocrit (Bld) [Volume fraction] 46.4 % Normal 40-54 [facility] Comment on above: Order Comment: 37507 3 URINE TOX Performed By: #### L 505.5000, L3410.9998 #### [facility] [address] [place], [address] Hemoglobin (Bld) [Mass/Vol] 16.0 g/dL Normal 13.0-16.5 [facility] Comment on above: Order Comment: 10145 3 URINE TOX Performed By: #### L 505.5000, L3410.9998 #### [facility] [address] [place], [address] IG% 0.300 Normal 0.0-0.9 [facility] Comment on above: Order Comment: 68772 3 URINE TOX Result Comment: IG% - Immature Granulocytes (promyelocytes, myelocytes and metamyelocytes) > 1% indicates that a LEFT SHIFT is Present. Performed By: #### L 505.5000, L3410.9998 #### [facility] [address] [place], [address] Lymphocytes/100 WBC (Bld) 29.9 % Normal 19-41 [facility] Comment on above: Order Comment: 44839 3 URINE TOX Performed By: #### L 505.5000, L3410.9998 #### [facility] [address] [place], [address] MCH (RBC) [Entitic mass] 31.5 pg Normal 27.0-32.0 [facility] Comment on above: Order Comment: 30440 3 URINE TOX Performed By: #### L 505.5000, L3410.9998 #### [facility] [address] [place], [address] MCHC (RBC) [Mass/Vol] 34.5 g/dL Normal 32-36 [facility] Comment on above: Order Comment: 69360 3 URINE TOX Performed By: #### L 505.5000, L3410.9998 #### [facility] [address] [place], [address] MCV (RBC) [Entitic vol] 91.3 fL Normal 80-94 [facility] Comment on above: Order Comment: 96024 3 URINE TOX Performed By: #### L 505.5000, L3410.9998 #### [facility] [address] [place], [address] Monocytes/100 WBC (Bld) 8.5 % Normal 0-10 [facility] Comment on above: Order Comment: 02223 3 URINE TOX Performed By: #### L 505.5000, L3410.9998 #### [facility] [address] [place], [address] Neutrophils/100 WBC (Bld) 57.7 % Normal 47-70 [facility] Comment on above: Order Comment: 52848 3 URINE TOX Performed By: #### L 505.5000, L3410.9998 #### [facility] [address] [place], [address] Nucleated RBC (Bld) [#/Vol] 0 10*3/uL Normal 0-5 [facility] Comment on above: Order Comment: 13578 3 URINE TOX Performed By: #### L 505.5000, L3410.9998 #### [facility] [address] [place], [address] Platelet mean volume (Bld) [Entitic vol] 8.9 fL Normal 6.2-12.0 [facility] Comment on above: Order Comment: 01943 3 URINE TOX Performed By: #### L 505.5000, L3410.9998 #### [facility] [address] [place], [address] Platelets (Bld) [#/Vol] 203 10*3/uL Normal 150-450 [facility] Comment on above: Order Comment: 17359 3 URINE TOX Performed By: #### L 505.5000, L3410.9998 #### [facility] [address] [place], [address] RBC (Bld) [#/Vol] 5.08 10*6/uL Normal 4.6-6.2 [facility] Comment on above: Order Comment: 06751 3 URINE TOX Performed By: #### L 505.5000, L3410.9998 #### [facility] [address] [place], [address] RDW SD 45.0 fl High 35.1-43.9 [facility] Comment on above: Order Comment: [id number] 3 URINE TOX Performed By: #### L 505.5000, L3410.9998 #### [facility] [address] [place], [address] WBC (Bld) [#/Vol] 6.4 10*3/uL Normal 4.4-11.0 [facility] Comment on above: Order Comment: 94538 3 URINE TOX Performed By: #### L 505.5000, L3410.9998 #### [facility] [address] [place], [address] Ferritinon 12-14-2024 Ferritin [Mass/Vol] 62 ng/mL Normal 37-417 [facility] Comment on above: Order Comment: 12799 3 URINE TOX Performed By: #### L 505.5000, L3410.9998 #### [facility] [address] [place], [address] Iron+Iron Binding Capacityon 12-14-2024 Iron [Mass/Vol] 135 ug/dL Normal 65-175 [facility] Comment on above: Order Comment: [id number] 3 URINE TOX Performed By: #### L 505.5000, L3410.9998 #### [facility] [address] [place], [address] IRON SATURATION 48.0 Normal 9-55 [facility] Comment on above: Order Comment: 25306 3 URINE TOX Performed By: #### L 505.5000, [id number] #### [facility] [address] [place], [address] TIBC 283 ug/dL Normal 250-450 [facility] Comment on above: Order Comment: 16382 3 URINE TOX Performed By: #### L 505.5000, L3410.9998 #### [facility] [address] [place], [address] UIBC 148 ug/dL Low 228-428 [facility] Comment on above: Order Comment: 57954 3 URINE TOX Performed By: #### L 505.5000, [id number] #### [facility] [address] [place], [address] IRON Normal 65-175 [facility] Comment on above: Result Comment: DUPL ICATED ORDERS Performed By: #### L 503.6550, L503.6030 #### [facility] [address] [place], [address] IRON SATURATION Normal 9-55 [facility] Comment on above: Result Comment: DUPL ICATED ORDERS Performed By: #### L 503.6550, L503.6030 #### [facility] [address] [place], [address] TIBC Normal 250-450 [facility] Comment on above: Result Comment: DUPL ICATED ORDERS Performed By: #### L 503.6550, L503.6030 #### [facility] [address] [place], [address] UIBC Normal 228-428 [facility] Comment on above: Result Comment: DUPL ICATED ORDERS Performed By: #### L 503.6550, L503.6030 #### [facility] [address] [place], [address] Oncology Visit Reporton 11-28 Oncology Visit Report [facility] [address] [place] [address] OFFICE VISIT Date of Service: 12/14/24 1357 MR#: [id number] Acct: [id number] Name: IFTIKHAR FLEMING Rep #: [id number] : 1965 From: Aleida Narayan NP LOAD PLANNER -C Age/Sex: 59/M Location: [facility] Status: Signed HPI Subjective Date of Service 12/14/24 Chief Complaint HH History of Present Illness 58-year-old gentleman evaluated for abnormal liver enzymes and found to have elevated iron parameters, see lab. He was recently diagnosed with prediabetes, has nonspecific chronic back pain, erectile dysfunction but fathered a 30-year-old son and did not attempt for more children. No family history of hereditary hemochromatosis. 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 Underwent therapeutic phlebotomy on June 03 and July 29. Reports he tolerated phlebotomies well without complaints. BPs at home reported as 125/80. [facility] Medical History Dental root implant present Polyneuropathy S/P neck surgery, follow-up exam Abdominal pain MADELEINE (obstructive sleep apnea) Diarrhea Cervical myelopathy Hyperammonemia Wears glasses Ambulates with cane Fatty liver High cholesterol Back pain Difficulty swallowing Gastric reflux CPAP (continuous positive airway pressure) dependence Sleep apnea Shortness of breath on exertion Former smoker Leg cramps Cardiology follow-up encounter History of stress test Dyslipidemia Chest pain Sleep apnea Hereditary hemochromatosis Vitamin d deficiency History of IBS Elevated LFTs Encounter for wellness examination in adult Fatigue Depression Hyperglycemia Hand weakness Neck pain Low back pain Numbness and tingling of both legs Left temporomandibular joint disorder, unspecified Idiopathic peripheral neuropathy Impingement syndrome, shoulder, left Skin lesion of back Left chest pressure Dyspnea on exertion Chronic lumbar radiculopathy Neck and shoulder pain New onset of headaches Neuropathy Hypertriglyceridemia Hypertension Gastrointestinal problem Back problem Arthritis Seasonal allergies Psoriasis Anxiety Hypertension Surgical History History of surgery History of tonsillectomy History of hernia surgery History of colonoscopy History of back surgery Family History Sister MADELEINE (obstructive sleep apnea) Other Alcoholism Depression Diabetes Hypertension Myocardial infarction Social History Smoking Status: Former smoker second hand exposure: No alcohol intake: never substance use type: does not use what type of physical activity do you participate in: none jordan/bahai: None seatbelt use: always ROS ROS Narrative Negative except as documented in the interval HPI Intake Vital Signs 09/21/24 14:19 12/07/24 13:59 12/14/24 13:59 12/14/24 14:03 Height 5 ft 10 in 5 ft 10 in 5 ft 10 in 5 ft 10 in Weight: 182 lb 8 oz BMI 26.2 BP 132/85 H Blood Pressure Location Lt brachial Position Sitting Respiration 16 Pulse 65 Pulse Source Monitor Temp 97.9 F Temperature Source Temporal Artery Pulse Oximetry (%) 99 Oxygen Delivery Method room air Intake Allergies tree and shrub pollen Allergy (Verified 12/14/24 14:02) Unknown duloxetine (From Cymbalta) Adverse Reaction (Severe, Verified 12/14/24 14:02) Other amlodipine Adverse Reaction (Intermediate, Verified 12/14/24 14:02) Lips tingling, feels strange nifedipine Adverse Reaction (Intermediate, Verified 12/14/24 14:02) Palpitations, SOB, depressed mood Medications ???Medication ???Instructions ???Recorded ???Confirmed ???Type Handicap Placard #1 ea 01/03/23 12/14/24 Rx cyanocobalamin (B12)-cobamamide 1 danial sublingual DAILY 02/11/24 History 5,000 mcg-100 mcg sublingual lozenge (B12) magnesium 200 mg tablet 200 mg PO DAILY 02/11/24 12/14/24 History vitamin E 268 mg (400 unit) capsule 268 mg PO DAILY 02/11/24 History calcium carbonate 600 mg PO DAILY 04/06/24 12/14/24 History diphenhydramine-zinc acetate 1 1 applic topical BID #28.3 grams 0 04/22/24 12/14/24 Rx %-0.1 % topical cream (Benadryl Itch Stopping) lisinopril 40 mg tablet 40 mg PO DAILY #90 tabs 04/22/24 0 12/14/24 Rx metformin 500 mg tablet 500 mg PO BID 90 days #180 tabs 12/14/24 Rx Held on 07/29/24. Instructions: patient holding at this time hydrochlorothiazide 25 mg tablet 25 mg PO DAILY htn (more content not included)... Normal [facility] Cardiology Visit Reporton Cardiology Visit Report [facility] [address] [place] [address] OFFICE VISIT Date of Service: 12/07/24 MR#: [id number] Acct: [id number] Name: IFTIKHAR FLEMING Rep #: [id number] : 1965 Provider: Dr. Juancho licona MD Age/Sex: 59/M Location: [facility] Status: Signed HPI HPI History of Present Illness Details: Patient is a 59-year-old white male that comes today for monitoring of his cardiovascular status. Carries a history of hemochromatosis obstructive sleep apnea which is treated with CPAP, hyperlipidemia managed through the primary service hypertension which is well-controlled. The patient has a significant family history of coronary disease and he had a negative ischemic workup in 2022. The patient has been purposely trying to increase his activity which is limited by orthopedic issues with his back. He denies any progressive dyspnea on exertion and he has been able to drop some weight with his increased activity levels. The patient does report that he is having palpitations especially in the evening hours when he lays down. He denies any carla syncope denies any definitive lightheadedness. Patient reports that his iron studies show his iron down from 1500 to 50. This is after multiple phlebotomies. He does report he has had some and liver involvement with his hemochromatosis. His stress echocardiogram did not show any evidence of restrictive heart disease his LV ejection fraction was normal at 65% on his formal echo April 2023. The patient denies any signs or symptoms of congestive failure. Patient denies any PND orthopnea denies any lower extremity edema. Blood pressure is 135/84 in the office today with a heart rate of 82 and regular 95% saturated on room air. Intake Vital Signs 11/17/24 09:52 12/07/24 13:59 Height 5 ft 10 in 5 ft 10 in Weight: 184 lb 181 lb BMI 26.4 25.9 BP 148/84 H 135/84 H Blood Pressure Location Lt brachial Lt brachial Position Sitting Sitting Respiration 15 18 Pulse 62 82 Pulse Source Monitor Monitor Temp 97.7 F L Pulse Oximetry (%) 96 95 Oxygen Delivery Method room air room air Intake Visit Reasons: O/D FOR FU Associate Medical Director Required: No Accompanied by: Self Is patient in pain?: No Allergies tree and shrub pollen Allergy (Verified 12/07/24 14:16) Unknown duloxetine (From Cymbalta) Adverse Reaction (Severe, Verified 12/07/24 14:16) Other amlodipine Adverse Reaction (Intermediate, Verified 12/07/24 14:16) Lips tingling, feels strange nifedipine Adverse Reaction (Intermediate, Verified 12/07/24 14:16) Palpitations, SOB, depressed mood Ejection fraction %: 65 Have you fallen in the past year?: No [facility] Medical History Dental root implant present Polyneuropathy S/P neck surgery, follow-up exam Abdominal pain MADELEINE (obstructive sleep apnea) Diarrhea Cervical myelopathy Hyperammonemia Wears glasses Ambulates with cane Fatty liver High cholesterol Back pain Difficulty swallowing Gastric reflux CPAP (continuous positive airway pressure) dependence Sleep apnea Shortness of breath on exertion Former smoker Leg cramps Cardiology follow-up encounter History of stress test Dyslipidemia Chest pain Sleep apnea Hereditary hemochromatosis Vitamin d deficiency History of IBS Elevated LFTs Encounter for wellness examination in adult Fatigue Depression Hyperglycemia Hand weakness Neck pain Low back pain Numbness and tingling of both legs Left temporomandibular joint disorder, unspecified Idiopathic peripheral neuropathy Impingement syndrome, shoulder, left Skin lesion of back Left chest pressure Dyspnea on exertion Chronic lumbar radiculopathy Neck and shoulder pain New onset of headaches Neuropathy Hypertriglyceridemia Hypertension Gastrointestinal problem Back problem Arthritis Seasonal allergies Psoriasis Anxiety Hypertension Surgical History History of surgery History of tonsillectomy History of hernia surgery History of colonoscopy History of back surgery Family History Sister MADELEINE (obstructive sleep apnea) Other Alcoholism Depression Diabetes Hypertension Myocardial infarction Social History Smoking Status: Former smoker second hand exposure: No alcohol intake: never substance use type: does not use what type of physical activity do you participate in: none jordan/bahai: None seatbelt use: always ROS Const Const: Positive for fatigue; Negative for weakness ENT ENT: Negative for dizziness or balance problems Cardio Chest Pain: No Palp (more content not included)... Normal [facility] Neurology Visit Reporton Neurology Visit Report [facility] [address] [place] [id number] OFFICE VISIT Date of Service: 11/17/24 MR#: [id number] Acct: [id number] Name: IFTIKHAR FLEMING Rep #: [id number] : 1965 Provider: Dr. Kenan jesus MD Age/Sex: 59/M Location: [facility] Status: Signed with Addenda ADDENDUM by Dr. Kenan Loya MD on 11/17/24 at 1453 Addendum Addendum (11/17/2024): At his 11/17/2024 office visit, the patient was advised to consider trying L-theanine and/or L- tyrosine for his anxiety. 11/17/241452 Date Kenan Loya MD cc: * Signed HPI HPI Chief Complaint: 4m f/u Details: Interim History: Iftikhar returns for follow-up visit. He has a history of hypertension, borderline diabetes mellitus, depression and anxiety. In 2015, he underwent a left L4-5 microdiscectomy. He had low back pain and left lower extremity radicular pain extending to the foot, preoperatively. Postoperatively, his distal left lower extremity pain diminished significantly however he has continued to experience low back pain, left gluteal region pain and also noted having numbness over the lateral aspect of the left calf and left foot. The symptoms have persisted. His back and left gluteal region pain are worsened with walking. He uses a cane. His discomfort has limited his walking range. Gabapentin for his pain was not well-tolerated (caused agitation). Later in 2015, following his lumbar surgery, he also began to experience an electric type sensation in the left foot and left leg distally (below the knee) and then began to experience a similar sensation in the right foot and right leg distally. The electric type sensation is present at rest and with movement. Since 2019, he has been experiencing intermittent aching and a feeling of weakness in the hands and this worsened over time. He had chronic neck pain. He was evaluated by a neurosurgeon following his lumbar surgery in 2015 and further lumbar surgery was recommended. He was seen by Dr. Baez, an orthopedic surgeon, in [address] Baez did not feel that surgery would alleviate his lower extremity symptoms. He has subsequently seen an orthopedic surgeon at [facility]. 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 The patient states that he was offered lumbar surgery on his orthopedic evaluation in 2023, however the patient has decided not to pursue this. He underwent a C5-6 and C6-7 anterior cervical discectomies and fusion in November 2023. He no longer has neck pain. He had some initial improvement of the feeling of weakness in the hands though subsequently he felt that his hands again felt weak. He experiences some aching pain in the hands. He states that on orthopedic evaluation later in 2023 at [facility], at that further cervical spine surgery was not recommended at that time though it was felt that he may possibly need some further cervical spine surgery in the future. Citalopram was of some benefit for his depression and anxiety but was not of benefit for his neuropathic pain; citalopram was increased to 40mg daily in August 2023 but causes apathy and this dose and he reduced his dose of citalopram to 20 mg daily; he is concerned that citalopram 20 mg daily may be contributing to his anxiety (he experienced a greater degree of anxiety when he was taking citalopram 40 mg daily). Duloxetine (at a dose of 30 mg daily) caused nausea. Venlafaxine ER at doses of 75 mg daily and reduced doses of 37.5 mg daily, prescribed in 2022, was not well- tolerated (caused confusion and feeling of unwellness). He uses lorazepam infrequently. Prior use of quetiapine, buspirone (caused tiredness), sertraline, zolpidem and divalproex were not well-tolerated. Hydroxyzine was not of benefit for his anxiety. Prior use of Viibryd, Fetzima, fluoxetine and aripiprazole were not of benefit. He previously took bupropion for smoking sensation in years past and had tolerated this medication well. He had prior [employer] testing (results reviewed on 12/17/2022). He reported having some intermittent difficulty swallowing foods and liquids that began in the spring 2021 and had occasional dyspepsia. 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 The patient states that he has also been diagnosed with dumping syndrome. He previously took omeprazole and (more content not included)... Normal [facility] Testicular with Arterial Markos won 10-28-2024 Testicular with Arterial Flow [facility] [address] [place] [address] Testicular with Arterial Flow MR#: [id number] Acct: [id number] Name: IFTIKHAR FLEMING Rep #: [id number] : 1965 M 59 From: Emiliano Schilling MD PCP: Dr. Mary Dumont MD Status: REG CLI Study: Testicular with Arterial Flow Date of Exam: Exam# [id number] Ordering Dr: Wyatt Briones MD PROCEDURE: TESTICULAR WITH ARTERIAL FLOW REASON FOR EXAM: Small testes; rotatory hemochromatosis; pronates disease; status post cecectomy. TECHNIQUE: Phillips scale imaging of the scrotal contents. COMPARISON: None. FINDINGS: RIGHT testicle: 3.8 x 3.0 x 2.4 cm. Homogeneous echotexture. No intratesticular mass. Right epididymis: Right epididymal head 7 mm cyst. Normal echogenicity and vascular flow. Tubular ectasia status post vasectomy. LEFT testicle: 4.0 x 3.0 x 1.9 cm. Crescentic hypoechoic 4 x 3 x 9 mm region. Left epididymis: Left epididymal head 6 mm cyst. Normal echogenicity and vascular flow. Other findings: No hydrocele or large varicocele. US/Testicular with Arterial Flow IMPRESSION: Left testicle crescentic hypoechoic region which may represent prior vascular compromise. Short interval follow-up ultrasound is recommended. Right tubular ectasia. Reading Location: [id number] CC: Dr. Mary Dumont MD; Dr. Wyatt Briones MD Product Safety Head: Signed Normal [facility] Gastroenterology Visit Repor ton 10-26-2024 Gastroenterology Visit Report [facility] [address] [place] [address] OFFICE VISIT Date of Service: 10/26/24 MR#: [id number] Acct: [id number] Name: IFTIKHAR FLEMING Rep #: [id number] : 1965 Provider: Dr. Wyatt cabrera MD Age/Sex: 59/M Location: [facility] Status: Signed Intake Vital Signs 06/23/24 11:51 09/21/24 14:19 10/26/24 09:32 Height 5 ft 10 in 5 ft 10 in 5 ft 10 in Weight: 195 lb 196 lb BMI 27.9 28.1 BP 159/93 H 165/82 H Blood Pressure Location Lt brachial Rt brachial Position Sitting Sitting Respiration 16 Pulse 57 L 64 Pulse Source Monitor Temp 97.4 F L Pulse Oximetry (%) 96 97 Oxygen Delivery Method room air room air Intake Visit Reasons: 4 M FU Chief Complaint: HH Allergies tree and shrub pollen Allergy (Verified 09/21/24 14:23) Unknown duloxetine (From Cymbalta) Adverse Reaction (Severe, Verified 09/21/24 14:23) Other amlodipine Adverse Reaction (Intermediate, Verified 09/21/24 14:23) Lips tingling, feels strange nifedipine Adverse Reaction (Intermediate, Verified 09/21/24 14:23) Palpitations, SOB, depressed mood PFSH Medical History (Updated 10/26/24 @ 10:[address] Wyatt Briones MD) Dental root implant present Polyneuropathy S/P neck surgery, follow-up exam Abdominal pain MADELEINE (obstructive sleep apnea) Diarrhea Cervical myelopathy Hyperammonemia Wears glasses Ambulates with cane Fatty liver High cholesterol Back pain Difficulty swallowing Gastric reflux CPAP (continuous positive airway pressure) dependence Sleep apnea Shortness of breath on exertion Former smoker Leg cramps Cardiology follow-up encounter History of stress test Dyslipidemia Chest pain Sleep apnea Hereditary hemochromatosis Vitamin d deficiency History of IBS Elevated LFTs Encounter for wellness examination in adult Fatigue Depression Hyperglycemia Hand weakness Neck pain Low back pain Numbness and tingling of both legs Left temporomandibular joint disorder, unspecified Idiopathic peripheral neuropathy Impingement syndrome, shoulder, left Skin lesion of back Left chest pressure Dyspnea on exertion Chronic lumbar radiculopathy Neck and shoulder pain New onset of headaches Neuropathy Hypertriglyceridemia Hypertension Gastrointestinal problem Back problem Arthritis Seasonal allergies Psoriasis Anxiety Hypertension Surgical History History of surgery History of tonsillectomy History of hernia surgery History of colonoscopy History of back surgery Family History Sister MADELEINE (obstructive sleep apnea) Other Alcoholism Depression Diabetes Hypertension Myocardial infarction Social History Smoking Status: Former smoker second hand exposure: No alcohol intake: never substance use type: does not use what type of physical activity do you participate in: none jordan/bahai: None seatbelt use: always HPI HPI Chief Complaint: HH Details: IFTIKHAR FLEMING, is a 59 M who presents to the office today for follow up.*BGI established 5.25.23 with lower abdominal pain, bloating, loose/watery stools which can get better and worse: severe symptoms present approximately every 3-4 months with chronic diarrhea on a daily basis minimally 4 times. Cymbalta attempted for anxiety/depression though felt it caused GI distress and was stopped. Probiotic attempted and felt it caused abdominal pain. Recalls a medication in the past that was taken for this that he had a reaction to. GI workup: Liver biopsy 8..23 extensive macrovesicular steatosis with marked iron deposits 4+, consistent with hemochromatosis. No obvious cirrhosis. EGD and colonoscopy 8..23 EGD short-segment Holcomb???s, no metaplasia on path; few linear gastric ulcers. H.Pylori neg Colonoscopy diverticulosis; 8mm TA polyp; congested mucosa. OV 10.2.23 bloating and loose stools have been a difficulty for the last few months. Doxycycline was initially very helpful with bloating, stopped for a couple of weeks (completed) and new prescription started last week with some improvement. [facility] hematology with goals for ferritin and iron saturation with phlebotomy management; start dietary changes. With phlebotomy he has had a decrease in iron levels; will continue with therapy for the next few months and then recheck. OV 1.15.24-patient had phlebotomy In hematology clinic. Last ferritin 587 in May 2023. Iron saturation 48.3%, serum iron 152. Patient complained of diarrhea and bloating and lower abdominal discomfort. He said last Saturday about 2- 3 days ago he had a vomiting mainly brownish color. Currently complains of loose wa (more content not included)... Normal [facility] AFP, Tumor Markeron 10-16-19 AFP TUMOR LANI 1.9 ng/mL Normal 0.0-8.4 [facility] Comment on above: Order Comment: N Result Comment: [facility] Electrochemiluminescence Immunoassay (ECLIA) Values obtained with different assay methods or kits cannot be used interchangeably. Results cannot be interpreted as absolute evidence of the presence or absence of malignant disease. This test is not interpretable in females. Performed By: #### L 501.9985 #### [facility] [address] [place], [place], [address] Haptoglobinon 10-16-2024 HAPTOGLOBIN 93 mg/dL Normal 29-370 [facility] Comment on above: Order Comment: N Performed By: #### L 100.0100 #### [facility] [address] [place], [place], [id number] Transferrinon 10-16-2024 Transferrin [Mass/Vol] 257 mg/dL Normal 177-329 [facility] Comment on above: Order Comment: N Result Comment: Perf ormed at: [facility] [id number] Manager Oncology: Ld Samaniego PhD, Phone: [phone] Performed By: #### L 501.9985 #### [facility] [address] [place], [place], [id number] ABD Limited w/ Elastographyo n 10-15-2024 ABD Limited w/ [facility] [address] [place], [place] [address] ABD Limited w/ Elastography MR#: [id number] Acct: [id number] Name: IFTIKHAR FLEMING Rep #: [id number] : [id number] M [id number] From: Horacio hernandez MD PCP: Dr. Mary Dumont MD Status: [facility] Study: ABD Limited w/ Elastography Date of Exam: 09/30 03/24 Exam# [id number] Ordering Dr: [place] [id number] STUDY: ABDOMINAL ULTRASOUND - RIGHT UPPER QUADRANT; ELASTOGRAPHY REASON FOR VISIT: Male, 58 years old. NAFLD TECHNIQUE: Ultrasound evaluation of the right upper quadrant was performed with real-time and static phillips-scale imaging. Point quantification shear wave elastography was performed ([employer]). TECHNICAL QUALITY: Adequate. COMPARISON: Comparison is made with prior study dated January 19, 2023. FINDINGS: Liver: The liver measures 17.2 cm. There is increased echogenicity consistent with fatty infiltration. The bile ducts are within normal limits. There is hepatic color flow. The direction of portal flow is hepatopetal. There is no demonstrated mass lesion. Median liver stiffness measured 9.5 kPa. Gallbladder: Normal distended gallbladder. The gallbladder wall measures 2 mm. There is a negative sonographic Santos''s sign. There is no pericholecystic fluid. There are multiple echogenic structures within the gallbladder, consistent with multiple gallstones. Common Bile Duct (C.B.D.): The common bile duct measures 3 mm. Pancreas: There is normal echogenicity of the visualized pancreas. There is no demonstrated pancreatic mass or cyst. Right Kidney: Normal size of the right kidney. The right kidney measures 12.5 cm x 6.5 cm x 6 cm. Normal renal cortex. The right cortex measures 1.7 cm. There is no demonstrated renal mass or cyst. There is no right hydronephrosis. IMPRESSION: 1. Liver stiffness measures 9.5 kPa compatible with F2-F3 (Mild to moderate liver fibrosis) Metavir score. 2. Multiple gallstones. Electronically Signed: Horacio Sánchez MD at 11:38 EST , [id number] STUDY: ABDOMINAL ULTRASOUND - LEFT UPPER QUADRANT REASON FOR EXAM: Male, 58 years old. NAFLD, HH -- including spleen TECHNIQUE: Transabdominal ultrasound was performed with real-time and static phillips scale imaging. TECHNICAL QUALITY: Adequate. COMPARISON: None. FINDINGS: Spleen: Normal size of the spleen. The spleen measures 12.2 cm x 6.6 cm x 5.1 cm. US/ABD Limited w/ Elastography IMPRESSION: No evidence of splenomegaly. Electronically Signed: Horacio Sánchez MD at 11:38 EST Reading Location ID and State: [address] [place] [address] , Service support , CC: Dr. Mary Dumont MD; Dr. Wyatt Briones MD Product Safety Head: Signed Normal [facility] CBC W/Diff, Automatedon 09-30 Absolute Lymph 1.77 X10 3/uL Normal 0.83-4.51 [facility] Comment on above: Performed By: #### L 100.0100 #### [facility] [address] [place], [address] Absolute Neut 4.7 X10 3/uL Normal 2.0-7.7 [facility] Comment on above: Performed By: #### L 100.0100 #### [facility] [address] [place], [address] Basophils/100 WBC (Bld) 0.7 % Normal 0-1 [facility] Comment on above: Performed By: #### L 100.0100 #### [facility] [address] [place], [address] Eosinophils/100 WBC (Bld) 3.2 % Normal 0-5 [facility] Comment on above: Performed By: #### L 100.0100 #### [facility] [address] [place], [address] Erythrocyte distribution width (RBC) [Ratio] 12.1 % Normal 11.6-14.6 [facility] Comment on above: Performed By: #### L 100.0100 #### [facility] [address] [place], [address] Hematocrit (Bld) [Volume fraction] 48.1 % Normal 40-54 [facility] Comment on above: Performed By: #### L 100.0100 #### [facility] [address] [place], [address] Hemoglobin (Bld) [Mass/Vol] 17.0 g/dL High 13.0-16.5 [facility] Comment on above: Performed By: #### L 100.0100 #### [facility] [address] [place], [address] IG% 0.500 Normal 0.0-0.9 [facility] Comment on above: Result Comment: IG% - Immature Granulocytes (promyelocytes, myelocytes and metamyelocytes) > 1% indicates that a LEFT SHIFT is Present. Performed By: #### L 100.0100 #### [facility] [address] [place], [address] Lymphocytes/100 WBC (Bld) 23.9 % Normal 19-41 [facility] Comment on above: Performed By: #### L 100.0100 #### [facility] [address] [place], [address] MCH (RBC) [Entitic mass] 31.4 pg Normal 27.0-32.0 [facility] Comment on above: Performed By: #### L 100.0100 #### [facility] [address] [place], [address] MCHC (RBC) [Mass/Vol] 35.3 g/dL Normal 32-36 [facility] Comment on above: Performed By: #### L 100.0100 #### [facility] [address] [place], [address] MCV (RBC) [Entitic vol] 88.9 fL Normal 80-94 [facility] Comment on above: Performed By: #### L 100.0100 #### [facility] [address] [place], [address] Monocytes/100 WBC (Bld) 8.5 % Normal 0-10 [facility] Comment on above: Performed By: #### L 100.0100 #### [facility] [address] [place], [address] Neutrophils/100 WBC (Bld) 63.2 % Normal 47-70 [facility] Comment on above: Performed By: #### L 100.0100 #### [facility] [address] [place], [address] Nucleated RBC (Bld) [#/Vol] 0 10*3/uL Normal 0-5 [facility] Comment on above: Performed By: #### L 100.0100 #### [facility] [address] [place], [address] Platelet mean volume (Bld) [Entitic vol] 9.0 fL Normal 6.2-12.0 [facility] Comment on above: Performed By: #### L 100.0100 #### [facility] [address] [place], [address] Platelets (Bld) [#/Vol] 237 10*3/uL Normal 150-450 [facility] Comment on above: Performed By: #### L 100.0100 #### [facility] [address] [place], [address] RBC (Bld) [#/Vol] 5.41 10*6/uL Normal 4.6-6.2 [facility] Comment on above: Performed By: #### L 100.0100 #### [facility] [address] [place], [address] RDW SD 39.4 fl Normal 35.1-43.9 [facility] Comment on above: Performed By: #### L 100.0100 #### [facility] [address] [place], [address] WBC (Bld) [#/Vol] 7.4 10*3/uL Normal 4.4-11.0 [facility] Comment on above: Performed By: #### L 100.0100 #### [facility] [address] [place], [address] CRPon 10-15-2024 C-REACTIVE PROT < 2.90 Normal 0.0-3.0 [facility] Comment on above: Result Comment: C-Re active Protein (CRP) provides useful information for the diagnosis, therapy and monitoring of inflammatory processes and associated diseases. For the evaluation of Relative Risk for Cardiovascular Disease, a High Sensitivity CRP (HSCRP) should be ordered. Performed By: #### L 100.0100 #### [facility] [address] [place], [address] Comprehensive Metabolic Prof ilon 10-15-2024 Albumin [Mass/Vol] 4.0 g/dL Normal 3.2-5.0 [facility] Comment on above: Performed By: #### L 100.0100 #### [facility] [address] [place], [address] Albumin/Globulin [Mass ratio] 1.2 {ratio} Normal 0.9-2.4 [facility] Comment on above: Performed By: #### L 100.0100 #### [facility] [address] [place], [address] ALK P 85 U/L Normal 45-117 [facility] Comment on above: Performed By: #### L 100.0100 #### [facility] [address] [place], [address] ALT [Catalytic activity/Vol] 53 U/L Normal 16-61 [facility] Comment on above: Performed By: #### L 100.0100 #### [facility] [address] [place], [address] AST [Catalytic activity/Vol] 30 U/L Normal 15-37 [facility] Comment on above: Performed By: #### L 100.0100 #### [facility] [address] [place], [address] Bilirubin [Mass/Vol] 0.60 mg/dL Normal 0.20-1.00 [facility] Comment on above: Result Comment: For patients on eltrombopag therapy, use of Dimension [place] TBIL is not recommended. Performed By: #### L 100.0100 #### [facility] [address] [place], [address] BUN/CRE 18.1 RATIO Normal 10-20 [facility] Comment on above: Performed By: #### L 100.0100 #### [facility] [address] [place], [address] CA,Total 9.1 mg/dL Normal 8.5-10.1 [facility] Comment on above: Performed By: #### L 100.0100 #### [facility] [address] [place], [address] Chloride [Moles/Vol] 101 mmol/L Normal 98-107 [facility] Comment on above: Performed By: #### L 100.0100 #### [facility] [address] [place], [address] CO2 [Moles/Vol] 24.0 mmol/L Normal 21.0-32.0 [facility] Comment on above: Performed By: #### L 100.0100 #### [facility] [address] [place], [address] Creatinine [Mass/Vol] 0.78 mg/dL Normal 0.70-1.30 [facility] Comment on above: Result Comment: The validity of the calculated GFR GFRAA in patients over 70 years has not been determined. Clinical correlation is essential. Performed By: #### L 100.0100 #### [facility] [address] [place], [address] EST GFR - AA 133 mL/min Normal >60 [facility] Comment on above: Result Comment: Afri can French GFR Calc Performed By: #### L 100.0100 #### [facility] [address] [place], [address] GAP 9 Normal 5-15 [facility] Comment on above: Performed By: #### L 100.0100 #### [facility] [address] [place], [address] GFR/1.73 sq M.predicted among non-blacks MDRD (S/P/Bld) [Vol rate/Area] 110 mL/min/{1.73_m2} Normal >60 [facility] Comment on above: Result Comment: Non- GFR Calc Performed By: #### L 100.0100 #### [facility] [address] [place], [address] Globulin (S) [Mass/Vol] 3.4 g/dL Normal 2.2-4.2 [facility] Comment on above: Performed By: #### L 100.0100 #### [facility] [address] [place], [address] Glucose [Mass/Vol] 159 mg/dL High 74-106 [facility] Comment on above: Result Comment: Fast ing Glucose result greater than or equal to 126 mg/dL suggests DIABETES MELLITUS per A.D.A. criteria. Performed By: #### L 100.0100 #### [facility] [address] [place], [address] Potassium [Moles/Vol] 3.9 mmol/L Normal 3.5-5.1 [facility] Comment on above: Performed By: #### L 100.0100 #### [facility] [address] [place], [address] Sodium [Moles/Vol] 134 mmol/L Low 136-145 [facility] Comment on above: Performed By: #### L 100.0100 #### [facility] [address] [place], [address] T PROT 7.4 g/dL Normal 6.4-8.2 [facility] Comment on above: Performed By: #### L 100.0100 #### [facility] [address] [place], [address] Urea nitrogen [Mass/Vol] 14 mg/dL Normal 7-18 [facility] Comment on above: Performed By: #### L 100.0100 #### [facility] [address] [place], [address] Ferritinon 10-15-2024 Ferritin [Mass/Vol] 26 ng/mL Normal 26-388 [facility] Comment on above: Performed By: #### L 100.0100 #### [facility] [address] [place], [address] Hemoglobin A1con 10-15-2024 HbA1c (Bld) [Mass fraction] 6.4 % High 3.8-5.6 [facility] Comment on above: Result Comment: Norm al < 5.7 % Prediabetic 5.7 - 6.4 % Diabetic >or= 6.5 % Please note range changes. Performed By: #### L 100.0100 #### [facility] [address] [place], [address] Lipid Profileon 10-15-2024 Cholesterol [Mass/Vol] 223 mg/dL High [facility] Comment on above: Result Comment: <200 mg/dL Desirable 200-240 mg/dL Borderline >240 mg/dL High Risk Performed By: #### L 100.0100 #### [facility] [address] [place], [address] Cholesterol in HDL [Mass/Vol] 40 mg/dL Normal [facility] Comment on above: Result Comment: The drugs N-Acetylcysteine and Metamizole may falsely depress this assay. Reference Range HDL <40 mg/dL Low HDL Cholesterol HDL >or= 60 mg/dL High HDL Cholesterol Performed By: #### L 100.0100 #### [facility] [address] [place], [address] Cholesterol in LDL [Mass/Vol] 127 mg/dL Normal 0-130 [facility] Comment on above: Performed By: #### L 100.0100 #### [facility] [address] [place], [address] Cholesterol in VLDL [Mass/Vol] 56 mg/dL High 5-40 [facility] Comment on above: Performed By: #### L 100.0100 #### [facility] [address] [place], [address] Triglyceride [Mass/Vol] 279 mg/dL High [facility] Comment on above: Result Comment: The drugs N-Acetylcysteine and Metamizole may falsely depress this assay. Serum Triglycerides Reference Interval Normal <150 mg/dL Borderline high 150 - 199 mg/dL High 200 - 499 mg/dL Very High > or = 500 mg/dL Performed By: #### L 100.0100 #### [facility] [address] [place], [address] Prothrombin Time w/INRon INR Coag (PPP) [Relative time] 1.0 {INR} Normal [facility] Comment on above: Performed By: #### L 100.0100 #### [facility] [address] [place], [address] PT Coag (PPP) [Time] 12.9 s Normal 11.7-14.9 [facility] Comment on above: Performed By: #### L 100.0100 #### [facility] [address] [place], [address] T4 Free Directon 10-15-2024 T4 FREE DIRECT 0.79 ng/dL Normal 0.76-1.46 [facility] Comment on above: Performed By: #### L 100.0100 #### [facility] [address] [place], [address] Thyroid Stim Hormone (TSH)on 10-15-2024 TSH 1.750 uIU/mL Normal 0.358-3.740 [facility] Comment on above: Performed By: #### L 100.0100 #### [facility] [address] [place], [address] CBC W/Diff, Automatedon 12-2 Absolute Neut Normal 2.0-7.7 [facility] Comment on above: Result Comment: OLD DUPLICATED ORDERS Performed By: #### L 539.9985 #### [facility] [address] [place], [address] HCT Normal 40-54 [facility] Comment on above: Result Comment: OLD DUPLICATED ORDERS Performed By: #### L 501.9985 #### [facility] [address] [place], [address] HGB Normal 13.0-16.5 [facility] Comment on above: Result Comment: OLD DUPLICATED ORDERS Performed By: #### L 501.9985 #### [facility] [address] [place], [address] MCH Normal 27.0-32.0 [facility] Comment on above: Result Comment: OLD DUPLICATED ORDERS Performed By: #### L 501.9985 #### [facility] [address] [place], [address] MCHC Normal 32-36 [facility] Comment on above: Result Comment: OLD DUPLICATED ORDERS Performed By: #### L 501.9985 #### [facility] [address] [place], [address] MCV Normal 80-94 [facility] Comment on above: Result Comment: OLD DUPLICATED ORDERS Performed By: #### L 501.9985 #### [facility] [address] [place], [address] NEUT% Normal 47-70 [facility] Comment on above: Result Comment: OLD DUPLICATED ORDERS Performed By: #### L 501.9985 #### [facility] [address] [place], [address] PLT Normal 150-450 [facility] Comment on above: Result Comment: OLD DUPLICATED ORDERS Performed By: #### L 501.9985 #### [facility] [address] [place], [address] RBC Normal 4.6-6.2 [facility] Comment on above: Result Comment: OLD DUPLICATED ORDERS Performed By: #### L 501.9985 #### [facility] [address] [place], [address] RDW CV Normal 11.6-14.6 [facility] Comment on above: Result Comment: OLD DUPLICATED ORDERS Performed By: #### L 501.9985 #### [facility] [address] [place], [address] RDW SD Normal 35.1-43.9 [facility] Comment on above: Result Comment: OLD DUPLICATED ORDERS Performed By: #### L 501.9985 #### [facility] [address] [place], [address] WBC Normal 4.4-11.0 [facility] Comment on above: Result Comment: OLD DUPLICATED ORDERS Performed By: #### L 501.9985 #### [facility] [address] [place], [address] Absolute Lymph 2.33 X10 3/uL Normal 0.83-4.51 [facility] Comment on above: Performed By: #### L 100.0100 #### [facility] [address] [place], [address] Absolute Neut 3.7 X10 3/uL Normal 2.0-7.7 [facility] Comment on above: Performed By: #### L 100.0100 #### [facility] [address] [place], [address] Basophils/100 WBC (Bld) 0.7 % Normal 0-1 [facility] Comment on above: Performed By: #### L 100.0100 #### [facility] [address] [place], [address] Eosinophils/100 WBC (Bld) 5.0 % Normal 0-5 [facility] Comment on above: Performed By: #### L 100.0100 #### [facility] [address] [place], [address] Erythrocyte distribution width (RBC) [Ratio] 11.9 % Normal 11.6-14.6 [facility] Comment on above: Performed By: #### L 100.0100 #### [facility] [address] [place], [address] Hematocrit (Bld) [Volume fraction] 46.3 % Normal 40-54 [facility] Comment on above: Performed By: #### L 100.0100 #### [facility] [address] [place], [address] Hemoglobin (Bld) [Mass/Vol] 16.1 g/dL Normal 13.0-16.5 [facility] Comment on above: Performed By: #### L 100.0100 #### [facility] [address] [place], [address] IG% 0.400 Normal 0.0-0.9 [facility] Comment on above: Result Comment: IG% - Immature Granulocytes (promyelocytes, myelocytes and metamyelocytes) > 1% indicates that a LEFT SHIFT is Present. Performed By: #### L 100.0100 #### [facility] [address] [place], [address] Lymphocytes/100 WBC (Bld) 32.7 % Normal 19-41 [facility] Comment on above: Performed By: #### L 100.0100 #### [facility] [address] [place], [address] MCH (RBC) [Entitic mass] 31.6 pg Normal 27.0-32.0 [facility] Comment on above: Performed By: #### L 100.0100 #### [facility] [address] [place], [address] MCHC (RBC) [Mass/Vol] 34.8 g/dL Normal 32-36 [facility] Comment on above: Performed By: #### L 100.0100 #### [facility] [address] [place], [address] MCV (RBC) [Entitic vol] 90.8 fL Normal 80-94 [facility] Comment on above: Performed By: #### L 100.0100 #### [facility] [address] [place], [address] Monocytes/100 WBC (Bld) 8.7 % Normal 0-10 [facility] Comment on above: Performed By: #### L 100.0100 #### [facility] [address] [place], [address] Neutrophils/100 WBC (Bld) 52.5 % Normal 47-70 [facility] Comment on above: Performed By: #### L 100.0100 #### [facility] [address] [place], [address] Nucleated RBC (Bld) [#/Vol] 0 10*3/uL Normal 0-5 [facility] Comment on above: Performed By: #### L 100.0100 #### [facility] [address] [place], [address] Platelet mean volume (Bld) [Entitic vol] 8.9 fL Normal 6.2-12.0 [facility] Comment on above: Performed By: #### L 100.0100 #### [facility] [address] [place], [address] Platelets (Bld) [#/Vol] 229 10*3/uL Normal 150-450 [facility] Comment on above: Performed By: #### L 100.0100 #### [facility] [address] [place], [address] RBC (Bld) [#/Vol] 5.10 10*6/uL Normal 4.6-6.2 [facility] Comment on above: Performed By: #### L 100.0100 #### [facility] [address] [place], [address] RDW SD 39.3 fl Normal 35.1-43.9 [facility] Comment on above: Performed By: #### L 100.0100 #### [facility] [address] [place], [address] WBC (Bld) [#/Vol] 7.1 10*3/uL Normal 4.4-11.0 [facility] Comment on above: Performed By: #### L 100.0100 #### [facility] [address] [place], [address] Ferritinon 09-21-2024 Ferritin [Mass/Vol] 30 ng/mL Normal 26-388 [facility] Comment on above: Order Comment: PLEAS E ADD TO BLOOD IN LAB. THANK YOU!! Performed By: #### L 503.6550, L503.6030 #### [facility] [address] [place], [address] Iron+Iron Binding Capacityon 09-21-2024 Iron [Mass/Vol] 109 ug/dL Normal 65-175 [facility] Comment on above: Order Comment: PLEAS E ADD TO BLOOD IN LAB. THANK YOU!! Performed By: #### L 503.6550, L503.6030 #### [facility] [address] [place], [address] IRON SATURATION 35.2 Normal 15.0-55.0 [facility] Comment on above: Order Comment: PLEAS E ADD TO BLOOD IN LAB. THANK YOU!! Performed By: #### L 503.6550, L503.6030 #### [facility] [address] [place], [address] TIBC 310 ug/dL Normal 250-450 [facility] Comment on above: Order Comment: PLEAS E ADD TO BLOOD IN LAB. THANK YOU!! Performed By: #### L 503.6550, L503.6030 #### [facility] [address] [place], [address] IRON Normal 65-175 [facility] Comment on above: Result Comment: OLD DUPLICATED ORDERS Performed By: #### L 501.9985 #### [facility] [address] [place], [address] IRON SATURATION Normal 15.0-55.0 [facility] Comment on above: Result Comment: OLD DUPLICATED ORDERS Performed By: #### L 501.9985 #### [facility] [address] [place], [address] TIB Normal 250-450 [facility] Comment on above: Result Comment: OLD DUPLICATED ORDERS Performed By: #### L 501.9985 #### [facility] [address] [place], [place], [address] Oncology Visit Reporton 08-31 Oncology Visit Report [facility] [address] [place] [address] OFFICE VISIT Date of Service: 09/21/24 1419 MR#: [id number] Acct: [id number] Name: IFTIKHAR FLEMING Rep #: [id number] : 1965 From: Aleida Dunaway Age/Sex: 58/M Location: [facility] Status: Signed with Addenda ADDENDUM by VIRY Narayan on 09/21/24 at 1451 Subjective Chief Complaint HH History of Present Illness Patient is presenting to clinic today for planned follow-up. Underwent therapeutic phlebotomy on June 03 and July 29. Reports he tolerated phlebotomies well without complaints. BPs at home reported as 125/80. Interval History Patient is presenting to clinic today for planned follow-up. Underwent therapeutic phlebotomy on June 03 and July 29. Reports he tolerated phlebotomies well without complaints. BPs at home reported as 125/80. 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 Advised to maintain a log and report to his pcp if remains elevated. 09/21/24 1451 Date Aleida Narayan NP cc: Dr. Mary Dumont MD * Signed HPI Subjective Date of Service 09/21/24 Chief Complaint HH History of Present Illness 58-year-old gentleman evaluated for abnormal liver enzymes and found to have elevated iron parameters, see lab. He was recently diagnosed with prediabetes, has nonspecific chronic back pain, erectile dysfunction but fathered a 30-year-old son and did not attempt for more children. No family history of hereditary hemochromatosis. 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 Underwent therapeutic phlebotomy on June 03 and July 29. Reports he tolerated phlebotomies well without complaints. BPs at home reported as 125/80. [facility] Medical History Dental root implant present Polyneuropathy S/P neck surgery, follow-up exam Abdominal pain MADELEINE (obstructive sleep apnea) Diarrhea Cervical myelopathy Hyperammonemia Wears glasses Ambulates with cane Fatty liver High cholesterol Back pain Difficulty swallowing Gastric reflux CPAP (continuous positive airway pressure) dependence Sleep apnea Shortness of breath on exertion Former smoker Leg cramps Cardiology follow-up encounter History of stress test Dyslipidemia Chest pain Sleep apnea Hereditary hemochromatosis Vitamin d deficiency History of IBS Elevated LFTs Encounter for wellness examination in adult Fatigue Depression Hyperglycemia Hand weakness Neck pain Low back pain Numbness and tingling of both legs Left temporomandibular joint disorder, unspecified Idiopathic peripheral neuropathy Impingement syndrome, shoulder, left Skin lesion of back Left chest pressure Dyspnea on exertion Chronic lumbar radiculopathy Neck and shoulder pain New onset of headaches Neuropathy Hypertriglyceridemia Hypertension Gastrointestinal problem Back problem Arthritis Seasonal allergies Psoriasis Hyperlipidemia Anxiety Hypertension Surgical History History of surgery History of tonsillectomy History of hernia surgery History of colonoscopy History of back surgery Family History Sister MADELEINE (obstructive sleep apnea) Other Alcoholism Depression Diabetes Hypertension Myocardial infarction Social History Smoking Status: Former smoker second hand exposure: No alcohol intake: never substance use type: does not use what type of physical activity do you participate in: none jordan/bahai: None seatbelt use: always ROS ROS Narrative Negative except as documented in the interval HPI Intake Vital Signs 06/03/24 14:02 09/09/24 10:05 09/21/24 14:19 Height 5 ft 10 in 5 ft 10 in 5 ft 10 in Weight: 197 lb 2 oz 195 lb BMI 28.3 27.9 BP 162/95 H 159/93 H Blood Pressure Location Lt brachial Lt brachial Position Sitting Sitting Respiration 16 16 Pulse 53 L 57 L Pulse Source Monitor Monitor Temp 98.2 F 97.4 F L Temperature Source Temporal Artery Pulse Oximetry (%) 97 96 Oxygen Delivery Method room air room air Intake Accompanied by: S (more content not included)... Normal [facility] MR/BMS.IMBon 09-09-2024 MR/BMS.IMB [facility] [address] [facility] [place] [address] OFFICE VISIT Date of Service: 09/09/24 MR#: [id number] Acct: [id number] Name: IFTIKHAR FLEMING Rep #: [id number] : 1965 Provider: Dr. 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 Required: No Accompanied by: Self Is patient in pain?: Yes (back, legs) Pain scale (1-10): 3 Allergies tree and shrub pollen Allergy (Verified 09/09/24 09:56) Unknown duloxetine (From Cymbalta) Adverse Reaction (Severe, Verified 09/09/24 09:56) Other amlodipine Adverse Reaction (Intermediate, Verified 09/09/24 09:56) Lips tingling, feels strange nifedipine Adverse Reaction (Intermediate, Verified 09/09/24 09:56) Palpitations, SOB, depressed mood Medications ???Medication ???Instructions ???Recorded ???Confirmed ???Type Handicap Placard #1 ea 01/03/23 09/09/24 Rx metoprolol tartrate 50 mg tablet 50 mg PO BID htn #180 tabs 12/02/23 09/09/24 Rx cyanocobalamin (B12)-cobamamide 1 danial sublingual DAILY 02/11/24 09/09/24 History 5,000 mcg-100 mcg sublingual lozenge (B12) magnesium 200 mg tablet 200 mg PO DAILY 02/11/24 09/09/24 History vitamin E 268 mg (400 unit) capsule 268 mg PO DAILY 02/11/24 09/09/24 History calcium carbonate 600 mg PO DAILY 04/06/24 09/09/24 History citalopram 10 mg tablet 10 mg PO DAILY #90 tabs 04/22/24 09/09/24 Rx diphenhydramine-zinc acetate 1 1 applic topical BID #28.3 grams 04/22/24 09/09/24 Rx %-0.1 % topical cream (Benadryl Itch Stopping) lisinopril 40 mg tablet 40 mg PO DAILY #90 tabs 04/22/24 09/09/24 Rx cholecalciferol (vitamin D3) 1,250 1,250 mcg PO .every other week #6 05/19/24 09/09/24 Rx mcg (50,000 unit) capsule caps pantoprazole 40 mg tablet,delayed 40 mg PO QAM acid reflux 1 month 06/12/24 09/09/24 Rx release #30 tabs metformin 500 mg tablet 500 mg PO BID 90 days #180 tabs 06/23/24 09/09/24 Rx icosapent ethyl 1 gram capsule 1 g PO BID #60 caps 07/22/24 09/09/24 Rx (Vascepa) lorazepam 1 mg tablet 1 mg PO DAILY PRN Anxiety #30 tabs 07/29/24 09/09/24 Rx hydrochlorothiazide 25 mg tablet 25 mg PO DAILY htn #90 tabs 08/05/24 09/09/24 Rx PFSH Medical History (Updated 09/09/24 @ 10:04 by Ita Torrez RN) Dental root implant present Polyneuropathy S/P neck surgery, follow-up exam Abdominal pain MADELEINE (obstructive sleep apnea) Diarrhea Cervical myelopathy Hyperammonemia Wears glasses Ambulates with cane Fatty liver High cholesterol Back pain Difficulty swallowing Gastric reflux CPAP (continuous positive airway pressure) dependence Sleep apnea Shortness of breath on exertion Former smoker Leg cramps Cardiology follow-up encounter History of stress test Dyslipidemia Chest pain Sleep apnea Hereditary hemochromatosis Vitamin d deficiency History of IBS Elevated LFTs Encounter for wellness examination in adult Fatigue Depression Hyperglycemia Hand weakness Neck pain Low back pain Numbness and tingling of both legs Left temporomandibular joint disorder, unspecified Idiopathic peripheral neuropathy Impingement syndrome, shoulder, left Skin lesion of back Left chest pressure Dyspnea on exertion Chronic lumbar radiculopathy Neck and shoulder pain New onset of headaches Neuropathy Hypertriglyceridemia Hypertension Gastrointestinal problem Back problem Arthritis Seasonal allergies Psoriasis Hyperlipidemia Anxiety Hypertension Surgical History History of surgery History of tonsillectomy History of hernia surgery History of colonoscopy History of back surgery Family History Sister MADELEINE (obstructive sleep apnea) Other Alcoholism Depression Diabetes Hypertension Myocardial infarction Social History Smoking Status: Former smoker second hand exposure: No alcohol intake: never substance use type: does not use what type of physical activity do you participate in: none jordan/bahai: None seatbelt use: always HPI HPI Chief Complaint: 5 m fu Details: IFTIKHAR FLEMING, is a 58 M who presents to the office today for 6-month follow-up. He has been having some (more content not included)... Normal [facility] XR Cervical spine 2 Viewson 07-07-2024 IMPRESSION: Stable postoperative changes from C5 through C7 ACDF. No hardware failure. Stable C4-5 degenerative disc disease. OLOGY EXAM: XR SPINE CERVI LIZZETH 2-3 VIEWS, 07/07/2024 09:32 AM COMPARISON: March 17, 2024 CLINICAL INDICATIONS: postop RELEVANT CLINICAL HISTORY: Z98.1:S/P cervical spinal fusion G95.9:Cervical myelopathy FINDINGS: 3 images obtained. Cervical Vertebral: Seven cervical vertebral bodies identified in anatomic alignment. Vertebral body height are maintained. Spinal canal is within normal limits. Postoperative changes from ACDF C5-C7. Hardware intact. Disc: Stable degenerative disc disease primarily at C4-5 Joint: Facet joints appear anatomically aligned. Soft Tissue: Prevertebral soft tissues are unremarkable. RADIOLOGY Philip Boudreaux MD - 07/07/2024 EXAM: XR SPINE CERVICAL 2-3 VIEWS, 07/07/2024 09:32 AM COMPARISON: March 17, 2024 CLINICAL INDICATIONS: postop RELEVANT CLINICAL HISTORY: Z98.1:S/P cervical spinal fusion G95.9:Cervical myelopathy FINDINGS: 3 images obtained. Cervical Vertebral: Seven cervical vertebral bodies identified in anatomic alignment. Vertebral body height are maintained. Spinal canal is within normal limits. Postoperative changes from ACDF C5-C7. Hardware intact. Disc: Stable degenerative disc disease primarily at C4-5 Joint: Facet joints appear anatomically aligned. Soft Tissue: Prevertebral soft tissues are unremarkable. IMPRESSION IMPRESSION: Stable postoperative changes from C5 through C7 ACDF. No hardware failure. Stable C4-5 degenerative disc disease. [facility] Radiology Study observation (narrative) [facility] XR Cervical spine 2 ViewsOrd ered By: Philip Boudreaux on 07-07-2024 [facility] Work Phone: XR SPINE CERVICAL 2-3 VIEWSo n 07-07-2024 XR SPINE CERVICAL 2-3 VIEWS EXAM: XR SPINE CERVICAL 2-3 VIEWS, 07/07/2024 09:32 AM COMPARISON: March 17, 2024 CLINICAL INDICATIONS: postop RELEVANT CLINICAL HISTORY: Z98.1:S/P cervical spinal fusion G95.9:Cervical myelopathy FINDINGS: 3 images obtained. Cervical Vertebral: Seven cervical vertebral bodies identified in anatomic alignment. Vertebral body height are maintained. Spinal canal is within normal limits. Postoperative changes from ACDF C5-C7. Hardware intact. Disc: Stable degenerative disc disease primarily at C4-5 Joint: Facet joints appear anatomically aligned. Soft Tissue: Prevertebral soft tissues are unremarkable. IMPRESSION: Stable postoperative changes from C5 through C7 ACDF. No hardware failure. Stable C4-5 degenerative disc disease. Normal [facility] XR Cervical spine 2 Viewson 03-17-2024 IMPRESSION: Stable anterior cervical fusion from C5 through C7. Intact hardware without acute osseous abnormality. OLOGY EXAM: XR SPINE CERVI LIZZETH 2-3 VIEWS, 03/17/2024 10:33 AM COMPARISON: 12/20/2023 CLINICAL INDICATIONS: h/o cervical fusion RELEVANT CLINICAL HISTORY: Z98.1:S/P cervical spinal fusion AP/Lateral; FINDINGS: 2 images obtained. Cervical Vertebral: Straightening of cervical lordotic curvature is noted. Previous anterior fusion from C5 through C7 is redemonstrated. Anterior plate with 2 screws at each level. Hardware is intact. Vertebral bodies are stable in height and alignment. Disc: Disc spaces are unchanged. Joint: Facet joints appear anatomically aligned. Soft Tissue: Prevertebral soft tissues are unremarkable. RADIOLOGY Toya Lechuga MD - 03/17/2024 EXAM: XR SPINE CERVICAL 2-3 VIEWS, 03/17/2024 10:33 AM COMPARISON: 12/20/2023 CLINICAL INDICATIONS: h/o cervical fusion RELEVANT CLINICAL HISTORY: Z98.1:S/P cervical spinal fusion AP/Lateral; FINDINGS: 2 images obtained. Cervical Vertebral: Straightening of cervical lordotic curvature is noted. Previous anterior fusion from C5 through C7 is redemonstrated. Anterior plate with 2 screws at each level. Hardware is intact. Vertebral bodies are stable in height and alignment. Disc: Disc spaces are unchanged. Joint: Facet joints appear anatomically aligned. Soft Tissue: Prevertebral soft tissues are unremarkable. IMPRESSION IMPRESSION: Stable anterior cervical fusion from C5 through C7. Intact hardware without acute osseous abnormality. [facility] Radiology Study [facility]narrative) [facility] 2 ViewsOrd ered By: Toya Lechuga on 03-17-2024 [facility] Work Phone: XR SPINE CERVICAL 2-3 VIEWSo n 03-17-2024 XR SPINE CERVICAL 2-3 VIEWS EXAM: XR SPINE CERVICAL 2-3 VIEWS, 03/17/2024 10:33 AM COMPARISON: 12/20/2023 CLINICAL INDICATIONS: h/o cervical fusion RELEVANT CLINICAL HISTORY: Z98.1:S/P cervical spinal fusion AP/Lateral; FINDINGS: 2 images obtained. Cervical Vertebral: Straightening of cervical lordotic curvature is noted. Previous anterior fusion from C5 through C7 is redemonstrated. Anterior plate with 2 screws at each level. Hardware is intact. Vertebral bodies are stable in height and alignment. Disc: Disc spaces are unchanged. Joint: Facet joints appear anatomically aligned. Soft Tissue: Prevertebral soft tissues are unremarkable. IMPRESSION: Stable anterior cervical fusion from C5 through C7. Intact hardware without acute osseous abnormality. Normal [facility] BASIC METABOLIC PANELon - Anion gap [Moles/Vol] 13 mmol/L 7 - 17 mmol/L [facility] Calcium [Mass/Vol] 9.0 mg/dL 8.6 - 10. 5 mg/dL [facility] Chloride [Moles/Vol] 101 mmol/L 98 - 10 8 mmol/L [facility] CO2 [Moles/Vol] 26 mmol/L 21 - 31 mmol/L [facility] Creatinine [Mass/Vol] 0.71 mg/dL 0.70 - 1.30 mg/dL [facility] eGFR, CKD-EPI, Male - PINF [facility] Comment on above: Reported eGFR is bas ed on the CKD-EPI 2020 equation using creatinine, age, and sex. Glucose [Mass/Vol] 124 mg/dL High 70 - 99 mg/dL [facility] Interpretation and review of laboratory results Abnormal [facility] Osmolality Calc [Osmolality] 287 [facility] Potassium [Moles/Vol] 4.0 mmol/L 3.5 - 5.0 mmol/L [facility] Sodium [Moles/Vol] 136 mmol/L 135 - 145 mmol/L [facility] Urea nitrogen [Mass/Vol] 13 mg/dL 7 - 25 mg/dL [facility] Urea nitrogen/Creatinine [Mass ratio] 18 mg/mg [facility] Anion gap [Moles/Vol] 13 mmol/L Normal 7-17 [facility] Comment on above: Performed By: #### C 7C #### [facility] (DEFAULT) [address] [place] [address] Calcium [Mass/Vol] 9.0 mg/dL Normal 8.6-10.5 [facility] Comment on above: Performed By: #### C 7C #### [facility] (DEFAULT) [address] [place] [address] Chloride [Moles/Vol] 101 mmol/L Normal 98-108 [facility] Comment on above: Performed By: #### C 7C #### [facility] (DEFAULT) [address] [place] [address] CO2 [Moles/Vol] 26 mmol/L Normal 21-31 [facility] Comment on above: Performed By: #### C 7C #### [facility] (DEFAULT) [address] [place] [address] Creatinine [Mass/Vol] 0.71 mg/dL Normal 0.70-1.30 [facility] Comment on above: Performed By: #### C 7C #### [facility] (DEFAULT) [address] [place] [address]34 eGFR, CKD-EPI, Male > Normal >=60 [facility] Comment on above: Result Comment: Repo rted eGFR is based on the CKD-EPI 2020 equation using creatinine, age, and sex. Performed By: #### C 7C #### [facility] (DEFAULT) [address] [place] [address] Glucose [Mass/Vol] 124 mg/dL High 70-99 [facility] Comment on above: Performed By: #### C 7C #### [facility] (DEFAULT) [address] [place] [address] Osmolality [Osmolality] 287 mosm/kg Normal 278-305 [facility] Comment on above: Performed By: #### C 7C #### [facility] (DEFAULT) [address] [place] [address] Potassium [Moles/Vol] 4.0 mmol/L Normal 3.5-5.0 [facility] Comment on above: Performed By: #### C 7C #### [facility] (DEFAULT) [address] [place] [address] Sodium [Moles/Vol] 136 mmol/L Normal 135-145 [facility] Comment on above: Performed By: #### C 7C #### [facility] (DEFAULT) [address] [place] [address] Urea nitrogen [Mass/Vol] 13 mg/dL Normal 7-25 [facility] Comment on above: Performed By: #### C 7C #### [facility] (DEFAULT) [address] [place] [address] Urea nitrogen/Creatinine [Mass ratio] 18 mg/mg Normal [facility] Comment on above: Performed By: #### C 7C #### [facility] (DEFAULT) [address] [place] [phone] CBC,PLATELETSon 12-20-2023 Erythrocyte distribution width (RBC) [Ratio] 12.2 % 10.9 - 14.3 % [facility] Hematocrit (Bld) [Volume fraction] 38.8 % Low 39.6 - 48.8 % [facility] Hemoglobin (Bld) [Mass/Vol] 13.6 g/dL 13.4 - 16.8 g/dL [facility] Interpretation and review of laboratory results Abnormal [facility] MCH (RBC) [Entitic mass] 32.5 pg 26.1 - 33.3 pg [facility] MCHC (RBC) [Mass/Vol] 35.1 g/dL 31.9 - 36.5 g/dL [facility] MCV (RBC) [Entitic vol] 92.6 fL 79.0 - 94.5 fL [facility] Platelet mean volume (Bld) [Entitic vol] 9.1 fL 8.7 - 12.3 fL [facility] Platelets (Bld) [#/Vol] 201 10*3/uL 146 - 337 K/uL [facility] RBC (Bld) [#/Vol] 4.19 10*6/uL Low [facility] WBC (Bld) [#/Vol] 14.55 10*3/uL High 3.73 - 10 .10 K/uL [facility] Hematocrit (Bld) [Volume fraction] 38.8 % Low 39.6-48.8 [facility] Comment on above: Performed By: #### H EMO #### [facility] (DEFAULT) [address] [address] Hemoglobin (Bld) [Mass/Vol] 13.6 g/dL Normal 13.4-16.8 [facility] Comment on above: Performed By: #### H EMO #### [facility] (DEFAULT) [address] [address] MCV (RBC) [Entitic vol] 92.6 fL Normal 79.0-94.5 [facility] Comment on above: Performed By: #### H EMOGC #### [facility] (DEFAULT) [address] [place] [address] Mean Cell Hgb 32.5 pg Normal 26.1-33.3 [facility] Comment on above: Performed By: #### H EMOGC #### [facility] (DEFAULT) [address] [address] Mean Cell Hgb Conc 35.1 g/dL Normal 31.9-36.5 [facility] Comment on above: Performed By: #### H EMOGC #### [facility] (DEFAULT) [address] [place] [address] Platelet mean volume (Bld) [Entitic vol] 9.1 fL Normal 8.7-12.3 [facility] Comment on above: Performed By: #### H EMOGC #### [facility] (DEFAULT) [address] [place] [address] Platelets (Bld) [#/Vol] 201 10*3/uL Normal 146-337 [facility] Comment on above: Performed By: #### H EMOGC #### [facility] (DEFAULT) [address] [place] [address] RBC (Bld) [#/Vol] 4.19 10*6/uL Low 4.38-5.83 [facility] Comment on above: Performed By: #### H EMOGC #### [facility] (DEFAULT) [address] [place] [address] RBC Distribution 12.2 % Normal 10.9-14.3 [facility] Comment on above: Performed By: #### H EMOGC #### [facility] (DEFAULT) [address] [place] [address] WBC (Bld) [#/Vol] 14.55 10*3/uL High 3.73-10.10 [facility] Comment on above: Performed By: #### H EMOGC #### [facility] (DEFAULT) [address] [place] [address] XR Cervical spine 2 Viewson 12-20-2023 IMPRESSION: Expected postoperative changes from ACDF C5-C7. No acute complication. OLOGY EXAM: XR SPINE CERVI LIZZETH 2-3 VIEWS, 12/20/2023 12:09 PM COMPARISON: June 12, 2023 CLINICAL INDICATIONS: AP/Lat s/p ACDF RELEVANT CLINICAL HISTORY: FINDINGS: 3 images obtained. Prevertebral soft tissue swelling with surgical drain in place. Status post ACDF C5-C7. Alignment is anatomic. Hardware is intact. Mild degenerative disc disease C4-5. No compression deformity. RADIOLOGY Philip Boudreaux MD - 12/20/2023 EXAM: XR SPINE CERVICAL 2-3 VIEWS, 12/20/2023 12:09 PM COMPARISON: June 12, 2023 CLINICAL INDICATIONS: AP/Lat s/p ACDF RELEVANT CLINICAL HISTORY: FINDINGS: 3 images obtained. Prevertebral soft tissue swelling with surgical drain in place. Status post ACDF C5-C7. Alignment is anatomic. Hardware is intact. Mild degenerative disc disease C4-5. No compression deformity. IMPRESSION IMPRESSION: Expected postoperative changes from ACDF C5-C7. No acute complication. [facility] Radiology Study observation (narrative) [facility] XR Cervical spine 2 ViewsOrd ered By: Philip Boudreaux on 12-20-2023 [facility] Work Phone: XR SPINE CERVICAL 2-3 VIEWSo n 12-20-2023 XR SPINE CERVICAL 2-3 VIEWS EXAM: XR SPINE CERVICAL 2-3 VIEWS, 12/20/2023 12:09 PM COMPARISON: June 12, 2023 CLINICAL INDICATIONS: AP/Lat s/p ACDF RELEVANT CLINICAL HISTORY: FINDINGS: 3 images obtained. Prevertebral soft tissue swelling with surgical drain in place. Status post ACDF C5-C7. Alignment is anatomic. Hardware is intact. Mild degenerative disc disease C4-5. No compression deformity. IMPRESSION: Expected postoperative changes from ACDF C5-C7. No acute complication. Normal [facility] ABORH TYPE RECONFIRMATIONon 12-19-2023 ABO/RH(D) TYPE Positive [facility] ABO/RH(D) TYPE Positive Normal [facility] Comment on above: Performed By: #### T YPEC #### [facility] (DEFAULT) [address] [place] [address] CARDIAC RHYTHM (SCANNED)on 0 12-19-2023 [facility] Absolute lymphocyte countOrd ered By: Sara Hawley on 12-16-2023 Lymphocytes Auto (Unsp spec) [#/Vol] 2.52 10*3/uL 0.83-4.51 [facility] Automated lymphocyte count a s percentage of total leukocytesOrdered By: Sara Hawley on 12-16-2023 Lymphocytes/100 WBC Auto (Unsp spec) 27.5 % 19-41 [facility] Basophil percentageOrdered B y: Sara Hawley on 12-16-2023 Basophils/100 WBC (Bld) 0.3 % 0-1 [facility] Eosinophils/100 WBC (Bld) 2.4 % 0-5 [facility] Hemoglobin (Bld) [Mass/Vol] 16.8 g/dL 13.0-16.5 [facility] Monocytes/100 WBC (Bld) 7.8 % 0-10 [facility] Neutrophils (Bld) [#/Vol] 5.7 10*3/uL 2.0-7.7 [facility] Neutrophils/100 WBC (Bld) 61.7 % 47-70 [facility] WBC (Bld) [#/Vol] 9.2 10*3/uL 4.4-11.0 [facility] Determination of erythrocyte mean corpuscular volume (MCV)Ordered By: Sara Hawley on 12-16-2023 MCV (RBC) [Entitic vol] 92.7 fL 80-94 [facility] Erythrocyte distribution wid th ratioOrdered By: [facility] on 12-16-2023 Erythrocyte distribution width (RBC) [Ratio] 12.4 % 11.6-14.6 [facility] Erythrocyte distribution wid th standard deviationOrdered By: [facility] Marleen on 12-16-2023 Erythrocyte distribution width (RBC) [Entitic vol] 42.4 fL 35.1-43.9 [facility] Hematocrit Auto (Bld) [Volum e fraction]Ordered By: [facility] Marleen on 12-16-2023 Hematocrit (Bld) [Volume fraction] 47.0 % 40-54 [facility] Immature granulocytes/100 WB C Auto (Bld)Ordered By: Sara Hawley on 12-16-2023 Immature granulocytes/100 WBC (Bld) 0.300 % 0.0-0.9 [facility] Comment on above: IG% - Immature Granu locytes (promyelocytes, myelocytes and metamyelocytes) > 1% indicates that a LEFT SHIFT is Present. Laboratory - Hematology and Cell countsOrdered By: Sara Hawley on 12-16-2023 MCH (RBC) [Entitic mass] 33.1 pg 27.0-32.0 [facility] MCHC (RBC) [Mass/Vol] 35.7 g/dL 32-36 [facility] Nucleated RBC/100 WBC (Bld) [Ratio] 0 % 0-5 [facility] Platelet mean volume (Bld) [Entitic vol] 8.9 fL 6.2-12.0 [facility] Platelets (Bld) [#/Vol] 223 10*3/uL 150-450 [facility] RBC Auto (Bld) [#/Vol]Ordere d By: Sara Hawley on 12-16-2023 RBC (Bld) [#/Vol] 5.07 10*6/uL 4.6-6.2 [facility] CBC AND ELECTRONIC DIFFon Basophils (Bld) [#/Vol] K/uL 0.00 - 0.09 K/uL [facility] Basophils/100 WBC (Bld) 0.4 % [facility] Differential cell count method Nom (Bld) Electronic Differential [facility] Eosinophils (Bld) [#/Vol] 0.25 10*3/uL 0.00 - 0.48 K/uL [facility] Eosinophils/100 WBC (Bld) 3.3 % [facility] Erythrocyte distribution width (RBC) [Ratio] 12.3 % 10.9 - 14.3 % [facility] Hematocrit (Bld) [Volume fraction] 48.8 % 39.6 - 48.8 % [facility] Hemoglobin (Bld) [Mass/Vol] 16.5 g/dL 13.4 - 16.8 g/dL [facility] Immature granulocytes (Bld) [#/Vol] K/uL NINF - 0.07 K/uL [facility] Immature granulocytes/100 WBC (Bld) 0.4 % [facility] Interpretation and review of laboratory results Abnormal [facility] Lymphocytes (Bld) [#/Vol] 2.53 10*3/uL 0.83 - 3.57 K/uL [facility] Lymphocytes/100 WBC (Bld) 33.1 % [facility] MCH (RBC) [Entitic mass] 32.2 pg 26.1 - 33.3 pg [facility] MCHC (RBC) [Mass/Vol] 33.8 g/dL 31.9 - 36.5 g/dL [facility] MCV (RBC) [Entitic vol] 95.1 fL High 79.0 - 94.5 fL [facility] Monocytes (Bld) [#/Vol] 0.62 10*3/uL 0.24 - 0.93 K/uL [facility] Monocytes/100 WBC (Bld) 8.1 % [facility] Neutrophils (Bld) [#/Vol] 4.18 10*3/uL 1.57 - 6.19 K/uL [facility] Nucleated RBC/100 WBC (Bld) [Ratio] 0.0 % [facility] Platelet mean volume (Bld) [Entitic vol] 9.5 fL 8.7 - 12.3 fL [facility] Platelets (Bld) [#/Vol] 220 10*3/uL 146 - 337 K/uL [facility] RBC (Bld) [#/Vol] 5.13 10*6/uL [facility] Segmented neutrophils/100 WBC (Bld) 54.7 % [facility] WBC (Bld) [#/Vol] 7.64 10*3/uL 3.73 - 10. 10 K/uL [facility] Abs Baso Auto < Normal 0.00-0.09 [facility] Comment on above: Performed By: #### L [id number] #### [facility] (DEFAULT) [address] [place] [address] Basophils/100 WBC (Bld) 0.4 % Normal [facility] Comment on above: Performed By: #### L [id number] #### [facility] (DEFAULT) [address] [place] [address] DIFF STATUS Electronic Differential Normal [facility] Comment on above: Performed By: #### L [id number] #### [facility] (DEFAULT) [address] [place] [address] Eosinophils (Bld) [#/Vol] 0.25 10*3/uL Normal 0.00-0.48 [facility] Comment on above: Performed By: #### L [id number] #### [facility] (DEFAULT) [address] [place] [address] Eosinophils/100 WBC (Bld) 3.3 % Normal [facility] Comment on above: Performed By: #### L [id number] #### [facility] (DEFAULT) [address] [place] [address] Hematocrit (Bld) [Volume fraction] 48.8 % Normal 39.6-48.8 [facility] Comment on above: Performed By: #### L [id number] #### [facility] (DEFAULT) [address] [place] [address] Hemoglobin (Bld) [Mass/Vol] 16.5 g/dL Normal 13.4-16.8 [facility] Comment on above: Performed By: #### L [id number] #### [facility] (DEFAULT) [address] [place] [address] Immature Grans % 0.4 % Normal [facility] Comment on above: Performed By: #### L [id number] #### [facility] (DEFAULT) [address] [place] [address] Immature Grans Absolute < Normal <=0.07 [facility] Comment on above: Performed By: #### L [id number] #### [facility] (DEFAULT) [address] [place] [address] Lymphocytes (Bld) [#/Vol] 2.53 10*3/uL Normal 0.83-3.57 [facility] Comment on above: Performed By: #### L [id number] #### [facility] (DEFAULT) [address] [place] [address] Lymphocytes/100 WBC (Bld) 33.1 % Normal [facility] Comment on above: Performed By: #### L [id number] #### [facility] (DEFAULT) [address] [place] [address] MCV (RBC) [Entitic vol] 95.1 fL High 79.0-94.5 [facility] Comment on above: Performed By: #### L [id number] #### [facility] (DEFAULT) [address] [address] Mean Cell Hgb 32.2 pg Normal 26.1-33.3 [facility] Comment on above: Performed By: #### L [id number] #### [facility] (DEFAULT) [address] [place] [address] Mean Cell Hgb Conc 33.8 g/dL Normal 31.9-36.5 [facility] Comment on above: Performed By: #### L [id number] #### [facility] (DEFAULT) [address] [address] Monocytes (Bld) [#/Vol] 0.62 10*3/uL Normal 0.24-0.93 [facility] Comment on above: Performed By: #### L [id number] #### [facility] (DEFAULT) [address] [place] [address] Monocytes/100 WBC (Bld) 8.1 % Normal [facility] Comment on above: Performed By: #### L [id number] #### [facility] (DEFAULT) [address] [address] Nucleated RBC 0.0 /100 WBC Normal <=0.2 [facility] Comment on above: Performed By: #### L [id number] #### [facility] (DEFAULT) [address] [address] Platelet mean volume (Bld) [Entitic vol] 9.5 fL Normal 8.7-12.3 [facility] Comment on above: Performed By: #### L [id number] #### [facility] (DEFAULT) [address] [place] [address] Platelets (Bld) [#/Vol] 220 10*3/uL Normal 146-337 [facility] Comment on above: Performed By: #### L [id number] #### [facility] (DEFAULT) [address] [place] [address] RBC (Bld) [#/Vol] 5.13 10*6/uL Normal 4.38-5.83 [facility] Comment on above: Performed By: #### L [id number] #### [facility] (DEFAULT) [address] [place] [address] RBC Distribution 12.3 % Normal 10.9-14.3 [facility] Comment on above: Performed By: #### L [id number] #### [facility] (DEFAULT) [address] [place] [address] Segs + Bands Auto 54.7 % Normal [facility] Comment on above: Performed By: #### L [id number] #### [facility] (DEFAULT) [address] [place] [address] Segs + Bands,Absolute Auto 4.18 K/uL Normal 1.57-6.19 [facility] Comment on above: Performed By: #### L [id number] #### [facility] (DEFAULT) [address] [place] [address] WBC (Bld) [#/Vol] 7.64 10*3/uL Normal 3.73-10.10 [facility] Comment on above: Performed By: #### L [id number] #### [facility] (DEFAULT) [address] [place] [address] COMPREHENSIVE METABOLIC PANE Adan 12-05-2023 Albumin [Mass/Vol] 4.5 g/dL 3.5 - 5.0 g/dL [facility] ALP [Catalytic activity/Vol] 75 U/L 32 - 126 U/L [facility] ALT [Catalytic activity/Vol] 37 U/L 10 - 52 U/L [facility] Anion gap [Moles/Vol] 11 mmol/L 7 - 17 mmol/L [facility] AST [Catalytic activity/Vol] 24 U/L 10 - 39 U/L [facility] Bilirubin [Mass/Vol] 0.3 mg/dL NINF - 1.5 mg/dL [facility] Calcium [Mass/Vol] 9.7 mg/dL 8.6 - 10. 5 mg/dL [facility] Chloride [Moles/Vol] 96 mmol/L Low 98 - 10 8 mmol/L [facility] CO2 [Moles/Vol] 31 mmol/L 21 - 31 mmol/L [facility] Creatinine [Mass/Vol] 0.77 mg/dL 0.70 - 1.30 mg/dL [facility] eGFR, CKD-EPI, Male - PINF [facility] Comment on above: Reported eGFR is bas ed on the CKD-EPI 2020 equation using creatinine, age, and sex. Glucose [Mass/Vol] 97 mg/dL 70 - 99 mg/dL [facility] Interpretation and review of laboratory results Abnormal [facility] Osmolality Calc [Osmolality] 283 [facility] Potassium [Moles/Vol] 4.4 mmol/L 3.5 - 5.0 mmol/L [facility] Protein [Mass/Vol] 7.1 g/dL 6.4 - 8.3 g/dL [facility] Sodium [Moles/Vol] 134 mmol/L Low 135 - 145 mmol/L [facility] Urea nitrogen [Mass/Vol] 15 mg/dL 7 - 25 mg/dL [facility] Urea nitrogen/Creatinine [Mass ratio] 19 mg/mg [facility] Albumin [Mass/Vol] 4.5 g/dL Normal 3.5-5.0 [facility] Comment on above: Performed By: #### C MPN #### [facility] (DEFAULT) [address] [place] [address] ALP [Catalytic activity/Vol] 75 U/L Normal 32-126 [facility] Comment on above: Performed By: #### C MPN #### [facility] (DEFAULT) [address] [place] [address] ALT [Catalytic activity/Vol] 37 U/L Normal 10-52 [facility] Comment on above: Performed By: #### C MPN #### [facility] (DEFAULT) [address] [place] [address] Anion gap [Moles/Vol] 11 mmol/L Normal 7-17 [facility] Comment on above: Performed By: #### C MPN #### [facility] (DEFAULT) [address] [place] [address] AST [Catalytic activity/Vol] 24 U/L Normal 10-39 [facility] Comment on above: Performed By: #### C MPN #### [facility] (DEFAULT) [address] [place] [address] Bilirubin [Mass/Vol] 0.3 mg/dL Normal <1.5 [facility] Comment on above: Performed By: #### C MPN #### [facility] (DEFAULT) [address] [place] [address] Calcium [Mass/Vol] 9.7 mg/dL Normal 8.6-10.5 [facility] Comment on above: Performed By: #### C MPN #### [facility] (DEFAULT) [address] [place] [address] Chloride [Moles/Vol] 96 mmol/L Low 98-108 [facility] Comment on above: Performed By: #### C MPN #### [facility] (DEFAULT) [address] [place] [address] CO2 [Moles/Vol] 31 mmol/L Normal 21-31 [facility] Comment on above: Performed By: #### C MPN #### [facility] (DEFAULT) [address] [address] Creatinine [Mass/Vol] 0.77 mg/dL Normal 0.70-1.30 [facility] Comment on above: Performed By: #### C MPN #### [facility] (DEFAULT) [address] [address] eGFR, CKD-EPI, Male > Normal >=60 [facility] Comment on above: Result Comment: Repo rted eGFR is based on the CKD-EPI 2020 equation using creatinine, age, and sex. Performed By: #### C MPN #### [facility] (DEFAULT) [address] [address] Glucose [Mass/Vol] 97 mg/dL Normal 70-99 [facility] Comment on above: Performed By: #### C MPN #### [facility] (DEFAULT) [address] [address] Osmolality [Osmolality] 283 mosm/kg Normal 278-305 [facility] Comment on above: Performed By: #### C MPN #### [facility] (DEFAULT) [address] [address] Potassium [Moles/Vol] 4.4 mmol/L Normal 3.5-5.0 [facility] Comment on above: Performed By: #### C MPN #### [facility] (DEFAULT) [address] [address] Protein [Mass/Vol] 7.1 g/dL Normal 6.4-8.3 [facility] Comment on above: Performed By: #### C MPN #### [facility] (DEFAULT) [address] [address] Sodium [Moles/Vol] 134 mmol/L Low 135-145 [facility] Comment on above: Performed By: #### C MPN #### [facility] (DEFAULT) [address] [place] [address] Urea nitrogen [Mass/Vol] 15 mg/dL Normal 7-25 [facility] Comment on above: Performed By: #### C MPN #### [facility] (DEFAULT) [address] [place] [address] Urea nitrogen/Creatinine [Mass ratio] 19 mg/mg Normal [facility] Comment on above: Performed By: #### C MPN #### [facility] (DEFAULT) [address] [place] [address] EXTRA LIGHT BLUE TOP DOUBLE SPINon 12-05-2023 Dummy LRR - Route to Double Spin Received [facility] HEMOGLOBIN A1Con 12-05-2023 Average glucose Estimated from glycated hemoglobin (Bld) [Mass/Vol] 123 mg/dL [facility] HbA1c (Bld) [Mass fraction] 5.9 % High 4.7 - 5.6 % [facility] Interpretation and review of laboratory results Abnormal [facility] Glucose [Mass/Vol] 123 mg/dL Normal [facility] Comment on above: Performed By: #### H EMO #### [facility] (DEFAULT) [address] [place] [address] Hemoglobin A1C HPLC 5.9 % High 4.7-5.6 [facility] Comment on above: Performed By: #### H EMOGC #### [facility] (DEFAULT) [address] [place] [address] PROTIME-INRon 12-05-2023 INR Coag (Bld) [Relative time] 1.0 {INR} 0.9 - 1.1 [facility] Interpretation and review of laboratory results Normal [facility] PT Coag (PPP) [Time] 12.7 s [facility] INR Coag (PPP) [Relative time] 1.0 {INR} Normal 0.9-1.1 [facility] Comment on above: Performed By: #### H EMOGC #### [facility] (DEFAULT) [address] [place] [address] PT Coag (PPP) [Time] 12.7 s Normal 11.9-14.2 [facility] Comment on above: Performed By: #### H EMOGC #### [facility] (DEFAULT) [address] [place] [address] PTT W/MIXING STUDY PERF ONLY Ordered By: Belle Ochoa on 12-05-2023 aPTT Coag (PPP) [Time] 26.0 s [facility] PTT Mixing Study With Normal Plasma Not Indicated [facility] PTT W/MIXING STUDY PERF ONLY on 12-05-2023 aPTT Coag (Bld) [Time] 26.0 s Normal 24.0-34.3 [facility] Comment on above: Performed By: #### H EMOGC #### [facility] (DEFAULT) [address] [place] [address] PTT Mixing Study With Normal Plasma Not Indicated Normal [facility] Comment on above: Performed By: #### H EMO #### [facility] (DEFAULT) [address] [address] SCREEN: MRSA/MSSAon 12-05-19 24 Methicillin Resistant S. Aureus By Pcr Negative Normal Negative [facility] Comment on above: Order Comment: This test was performed using a real time PCR assay. Results should be interpreted in conjunction with other clinical and laboratory findings. A positive result does not necessarily indicate the presence of viable organism. This test should not be used as a test of cure. For E-swab specimens, this test was developed and its performance characteristics determined by the Clinical Microbiology Laboratory at [facility]. It has not been cleared or approved by the FDA.The laboratory is regulated under CLIA as qualified to perform high-complexity testing. This test is used for clinical purposes. It should not be regarded as investigational or for research. Performed By: #### S CRSB #### [facility] (DEFAULT) [address] [address] Staphylococcus Aureus By Pcr Negative Normal Negative [facility] Comment on above: Order Comment: This test was performed using a real time PCR assay. Results should be interpreted in conjunction with other clinical and laboratory findings. A positive result does not necessarily indicate the presence of viable organism. This test should not be used as a test of cure. For E-swab specimens, this test was developed and its performance characteristics determined by the [facility] Micro[facility] at [facility]. It has not been cleared or approved by the FDA.The laboratory is regulated under CLIA as qualified to perform high-complexity testing. This test is used for clinical purposes. It should not be regarded as investigational or for research. Performed By: #### S CRSB #### [facility] (DEFAULT) [address] [address] TYPE AND SCREEN - PREADMISSI ONon 12-05-2023 ABO/RH(D) TYPE Positive Normal [facility] Comment on above: Performed By: #### X MPO #### [facility] (DEFAULT) [address] [place] [address] URINALYSIS REFLEX TO CULTURE PERFORMABLEOrdered By: Ale Chavez on 12-05-2023 Appearance (U) Clear Clear [facility] Bacteria LM Ql (Urine sed) TRACE Abnormal ABSENT [facility] Color (U) Yellow Yellow [facility] Epithelial cells.squamous LM Ql (Urine sed) 0-2/hpf 0-2/hpf, 3-5/hpf = 1+ [facility] Glucose Test strip (U) [Mass/Vol] Negative Negative [facility] Interpretation and review of laboratory results Abnormal [facility] Ketones (U) [Mass/Vol] Negative Negative [facility] Leukocyte esterase Test strip Ql (U) Negative [facility] Nitrite Ql (U) Negative [facility] pH (U) 6.0 [pH] 5.0 - 7.0 [facility] Protein (U) [Mass/Vol] Negative Negative [facility] RBC (U) [#/Vol] Trace [facility] LM.HPF (Urine sed) [#/Area] 3-5 Abnormal [facility] Specific gravity (U) [Rel density] 1.020 1.001 - 1.035 [facility] Urobilinogen (U) [Mass/Vol] 0.2 E.U./dL 0.2 E.U/dL, 1.0 E.U/dL [facility] WBC LM.HPF (Urine sed) [#/Area] 0 - 5 [facility] URINALYSIS REFLEX TO CULTURE PERFORMABLEon 12-05-2023 Appearance (U) Clear Normal Clear [facility] Comment on above: Performed By: #### U [id number] #### [facility] (DEFAULT) [address] [place] [address] Bacteria TRACE Abnormal ABSENT [facility] Comment on above: Performed By: #### U [id number] #### [facility] (DEFAULT) [address] [place] [address] Blood Urine Trace Abnormal Negative [facility] Comment on above: Performed By: #### U [id number] #### [facility] (DEFAULT) [address] [place] [address] Color (U) Yellow Normal Yellow [facility] Comment on above: Performed By: #### U [id number] #### [facility] (DEFAULT) [address] [place] [address] Glucose Ql (U) Negative Normal Negative [facility] Comment on above: Performed By: #### U [id number] #### [facility] (DEFAULT) [address] [place] [address] Ketones Ql (U) Negative Normal Negative [facility] Comment on above: Performed By: #### U [id number] #### [facility] (DEFAULT) [address] [place] [address] Leukocyte esterase Test strip Ql (U) Negative Normal Negative [facility] Comment on above: Performed By: #### U [id number] #### [facility] (DEFAULT) [address] [place] [address] Nitrites Urine Negative Normal Negative [facility] Comment on above: Performed By: #### U [id number] #### [facility] (DEFAULT) [address] [place] [address] pH (U) 6.0 [pH] Normal 5.0-7.0 [facility] Comment on above: Performed By: #### U [id number] #### [facility] (DEFAULT) [address] [place] [address] Protein Urine Negative Normal Negative [facility] Comment on above: Performed By: #### U [id number] #### [facility] (DEFAULT) [address] [address] RBC Urine 3-5 Abnormal 0-2 [facility] Comment on above: Performed By: #### U [id number] #### [facility] (DEFAULT) [address] [address] Specific [place] Urine 1.020 Normal 1.001-1.035 [facility] Comment on above: Performed By: #### U [id number] #### [facility] (DEFAULT) [address] [place] [address] Squamous/Epithelial Cells 0-2/hpf Normal 0-2/hpf, 3-5/hpf = 1+ [facility] Comment on above: Performed By: #### U [id number] #### [facility] (DEFAULT) [address] [place] [address] Urobilinogen Urine 0.2 E.U./dL Normal 0.2 E.U/d L, 1.0 E.U/dL [facility] Comment on above: Performed By: #### U [id number] #### [facility] (DEFAULT) [address] [address] WBC Urine 0 - 5 Normal 0 - 5 [facility] Comment on above: Performed By: #### U [id number] #### [facility] ([facility]) [address] [place] [address] XR CHEST PA AND LATERAL 2 EWSon 12-05-2023 XR CHEST PA AND LATERAL 2 VIEWS EXAM: XR CHEST PA AND LATERAL 2 VIEWS, 12/05/2023 12:17 PM CLINICAL INDICATIONS: preop RELEVANT CLINICAL HISTORY: Z8:Preop exam for internal medicine G95.9:Cervical myelopathy 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 FINDINGS: Well-expanded and clear lungs. Normal heart size and mediastinal contours. No pulmonary edema. Normal bones. IMPRESSION: Normal chest radiographs. Normal [facility] XR Chest PA and Lateralon IMPRESSION: Normal chest radiographs. 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 FINDINGS: Well-expanded and clear lungs. Normal heart size and mediastinal contours. No pulmonary edema. Normal bones. 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 FINDINGS: Well-expanded and clear lungs. Normal heart size and mediastinal contours. No pulmonary edema. Normal bones. IMPRESSION IMPRESSION: Normal chest radiographs. [facility] Radiology Study observation (narrative) [facility] XR Chest PA and LateralOrder ed By: Prudencio Ham on 12-05-2023 [facility] Work Phone: Absolute lymphocyte countOrd ered By: Wyatt Briones on 10-21-2023 Lymphocytes Auto (Unsp spec) [#/Vol] 2.85 10*3/uL 0.83-4.51 [facility] Automated lymphocyte count a s percentage of total leukocytesOrdered By: Wyatt Briones on 10-21-2023 Lymphocytes/100 WBC Auto (Unsp spec) 31.7 % 19-41 [facility] Basophil percentageOrdered B y: Wyatt Briones on 10-21-2023 Basophils/100 WBC (Bld) 0.8 % 0-1 [facility] Bilirubin [Mass/Vol] 0.40 mg/dL 0.20-1.00 [facility] Comment on above: For patients on eltr ombopag therapy, use of Dimension [place] TBIL is not recommended. Chloride [Moles/Vol] 97 mmol/L 98-107 [facility] Cholesterol [Mass/Vol] 227 mg/dL <200 [facility] Comment on above: <200 mg/dL Desirable 200-240 mg/dL Borderline >240 mg/dL High Risk Eosinophils/100 WBC (Bld) 3.6 % 0-5 [facility] Glucose [Mass/Vol] 123 mg/dL 74-106 [facility] Comment on above: Fasting Glucose resu lt from 100 to 125 mg/dL suggests IMPAIRED HOMEOSTASIS per A.D.A. criteria. Hemoglobin (Bld) [Mass/Vol] 16.9 g/dL 13.0-16.5 [facility] Monocytes/100 WBC (Bld) 7.8 % 0-10 [facility] Neutrophils (Bld) [#/Vol] 5.0 10*3/uL 2.0-7.7 [facility] Neutrophils/100 WBC (Bld) 55.3 % 47-70 [facility] Potassium [Moles/Vol] 4.2 mmol/L 3.5-5.1 [facility] Comment on above: Moderate Hemolysis, Result may be falsely increased. Protein [Mass/Vol] 7.6 g/dL 6.4-8.2 [facility] Sodium [Moles/Vol] 130 mmol/L 136-145 [facility] Triglyceride [Mass/Vol] 695 mg/dL <199 [facility] Comment on above: The drugs N-Acetylcy steine and Metamizole may falsely depress this assay. TRIGLYCERIDE IS GREATER THAN 400 mg/dL. LDL RESULT IS INVALID AND WILL NOT BE REPORTED.Serum Triglycerides Reference Interval Normal <150 mg/dL Borderline high 150 - 199 mg/dL High 200 - 499 mg/dL Very High > or = 500 mg/dL WBC (Bld) [#/Vol] 9.0 10*3/uL 4.4-11.0 [facility] Determination of erythrocyte mean corpuscular volume (MCV)Ordered By: Wyatt Briones on 10-21-2023 MCV (RBC) [Entitic vol] 94.5 fL 80-94 [facility] Erythrocyte distribution wid th ratioOrdered By: Wyatt Briones on 10-21-2023 Erythrocyte distribution width (RBC) [Ratio] 12.4 % 11.6-14.6 [facility] Erythrocyte distribution wid th standard deviationOrdered By: Wyatt Briones on 10-21-2023 Erythrocyte distribution width (RBC) [Entitic vol] 43.5 fL 35.1-43.9 [facility] Hematocrit Auto (Bld) [Volum e fraction]Ordered By: Wyatt Briones on 10-21-2023 Hematocrit (Bld) [Volume fraction] 49.6 % 40-54 [facility] Immature granulocytes/100 WB C Auto (Bld)Ordered By: Wyatt Briones on 10-21-2023 Immature granulocytes/100 WBC (Bld) 0.800 % 0.0-0.9 [facility] Comment on above: IG% - Immature Granu locytes (promyelocytes, myelocytes and metamyelocytes) > 1% indicates that a LEFT SHIFT is Present. Iron measurement (mass/mass) Ordered By: Wyatt Briones on 10-21-2023 Iron (Unsp spec) [Mass/Mass] 121 ug/dL 65-175 [facility] Comment on above: Moderate Hemolysis, Result may be falsely increased. Laboratory - Chemistry and C hemistry - challengeOrdered By: Wyatt Briones on 10-21-2023 AFP.tumor marker [Mass/Vol] 2.2 ng/mL 0.0-8.4 [facility] Comment on above: [facility] El ectrochemiluminescence Immunoassay(ECLIA)Values obtained with different assay methods or kits cannotbe used interchangeably. Results cannot be interpreted asabsolute evidence of the presence or absence of malignantdisease.This test is not interpretable in females. Albumin/Globulin [Mass ratio] 1.1 {ratio} 0.9-2.4 [facility] ALP [Catalytic activity/Vol] 83 U/L 45-117 [facility] ALT [Catalytic activity/Vol] 65 U/L 16-61 [facility] Cholesterol in HDL (Body fld) [Mass/Vol] 36 mg/dL >40 [facility] Comment on above: The drugs N-Acetylcy steine and Metamizole may falsely depress this assay. Reference Range HDL <40 mg/dL Low HDL Cholesterol HDL >or= 60 mg/dL High HDL Cholesterol Cholesterol in LDL (Body fld) [Moles/Vol] [facility] Comment on above: Test not performed Cholesterol in VLDL Calc [Moles/Vol] [facility] Comment on above: Test not performed CO2 [Moles/Vol] 27.0 mmol/L 21.0-32.0 [facility] Ferritin [Mass/Vol] 385 ng/mL 26-388 [facility] Globulin (S) [Mass/Vol] 3.6 g/dL 2.2-4.2 [facility] Transferrin [Mass/Vol] 272 mg/dL 177-329 [facility] Comment on above: Performed at: [facility] [id number] [place], [place] [id number] Director: Ld Samaniego PhD, Phone: [phone] Urea nitrogen/Creatinine [Mass ratio] 23.4 mg/mg 10-20 [facility] Laboratory - CoagulationOrde red By: Wyatt Briones on 10-21-2023 PT Coag (PPP) [Time] 12.3 s 11.7-14.9 [facility] Laboratory - Hematology and Cell countsOrdered By: Wyatt Briones on 10-21-2023 MCH (RBC) [Entitic mass] 32.2 pg 27.0-32.0 [facility] MCHC (RBC) [Mass/Vol] 34.1 g/dL 32-36 [facility] Nucleated RBC/100 WBC (Bld) [Ratio] 0 % 0-5 [facility] Platelets (Bld) [#/Vol] 281 10*3/uL 150-450 [facility] Laboratory - Serology - non- microOrdered By: Wyatt Briones on 10-21-2023 Sjogrens syndrome-B extractable nuclear IgG Qn (S) Not Reportable [facility] No Panel InformationOrdered By: Wyatt Briones on 10-21-2023 Anti-Nuclear Antibody Screen Negative Negative [facility] Comment on above: Performed at: [facility] [address] [id number] Director: Ld Samaniego PhD, Phone: [phone] Centromere B Antibody Not Reportable [facility] Estimated Creatinine Clearance Calc 103.89 ml/min [facility] Estimated GFR (MDRD) Amer 126 mL/min >60 [facility] Comment on above: GFR Calc Estimated GFR (MDRD) Non-Af Amer 104 mL/min >60 [facility] Comment on above: Non- GFR Calc CHINA-1 Antibody Not Reportable [facility] TIRE BAGGER Antibody Not Reportable [facility] Total Iron Binding Capacity 321 ug/dL 250-450 [facility] Comment on above: Moderate Hemolysis, Result may be falsely increased. Platelet mean volume Nico-Ec ker (Bld) [Entitic vol]Ordered By: Wyatt Briones on 10-21-2023 Platelet mean volume (Bld) [Entitic vol] 9.0 fL 6.2-12.0 [facility] Platelet poor plasma interna tional normalized ratio (INR)Ordered By: Wyatt Briones on 10-21-2023 INR Coag (PPP) [Relative time] 0.9 {INR} [facility] RBC Auto (Bld) [#/Vol]Ordere d By: Wyatt Briones on 10-21-2023 RBC (Bld) [#/Vol] 5.25 10*6/uL 4.6-6.2 [facility] Serum DNA double strand anti body assay (units/volume)Ordered By: Wyatt Briones on 10-21-2023 DNA double strand Ab Qn (S) Not Reportable [facility] Serum Scl-70 antibody assay (units/volume)Ordered By: Wyatt Briones on 10-21-2023 SCL-70 extractable nuclear Ab Qn (S) Not Reportable [facility] Serum Aaron extractable nucl ear antibody titerOrdered By: Wyatt Briones on 10-21-2023 Aaron extractable nuclear Ab (S) [Titer] Not Reportable [facility] Serum or plasma calcium orlando urement (mass/volume)Ordered By: Wyatt Briones on 10-21-2023 Calcium [Mass/Vol] 8.9 mg/dL 8.5-10.1 [facility] Serum or plasma creatinine m easurement (mass/volume)Ordered By: Wyatt Briones on 10-21-2023 Creatinine [Mass/Vol] 0.81 mg/dL 0.70-1.30 [facility] Comment on above: The validity of the calculated GFR & GFRAA in patients over 70 years has not been determined. Clinical correlation is essential. Serum or plasma iron saturat ion measurement (mass fraction)Ordered By: Wyatt Briones on 10-21-2023 Iron saturation [Mass fraction] 37.7 % 15.0-55.0 [facility] Serum or plasma urea nitroge n measurement (mass/volume)Ordered By: Wyatt Briones on 10-21-2023 Urea nitrogen [Mass/Vol] 19 mg/dL 7-18 [facility] Thin prep Papanicolaou smear with manual screeningOrdered By: Wyatt Briones on 10-21-2023 Thin prep Papanicolaou smear with manual screening 4.0 g/dL 3.2-5.0 [facility] Thin prep Papanicolaou smear with manual screening 37 U/L 15-37 [facility] Comment on above: Moderate Hemolysis, Result may be falsely increased. Thin prep Papanicolaou smear with manual screening 6 5-15 [facility] Whole blood hemoglobin A1c/t otal hemoglobin ratio (mass fraction)Ordered By: Wyatt Briones on 10-21-2023 HbA1c (Bld) [Mass fraction] 5.7 % 3.8-5.6 [facility] Comment on above: Normal < 5.7 % Predi abetic 5.7 - 6.4 % Diabetic >or= 6.5 % Please note range changes. Absolute lymphocyte countOrd ered By: Mary Dumont on 09-09-2023 Lymphocytes Auto (Unsp spec) [#/Vol] 1.87 10*3/uL 0.83-4.51 [facility] Basophil percentageOrdered B y: Mary Dumont on 09-09-2023 Basophils/100 WBC (Bld) 0.8 % 0-1 [facility] Bilirubin [Mass/Vol] 0.20 mg/dL 0.20-1.00 [facility] Comment on above: For patients on eltr ombopag therapy, use of Dimension [place] TBIL is not recommended. Chloride [Moles/Vol] 101 mmol/L 98-107 [facility] Cholesterol [Mass/Vol] 204 mg/dL <200 [facility] Comment on above: <200 mg/dL Desirable 200-240 mg/dL Borderline >240 mg/dL High Risk Eosinophils/100 WBC (Bld) 2.9 % 0-5 [facility] Glucose [Mass/Vol] 122 mg/dL 74-106 [facility] Comment on above: Fasting Glucose resu lt from 100 to 125 mg/dL suggests IMPAIRED HOMEOSTASIS per A.D.A. criteria. Neutrophils (Bld) [#/Vol] 3.9 10*3/uL 2.0-7.7 [facility] Neutrophils/100 WBC (Bld) 58.5 % 47-70 [facility] Potassium [Moles/Vol] 3.9 mmol/L 3.5-5.1 [facility] Protein [Mass/Vol] 7.2 g/dL 6.4-8.2 [facility] Sodium [Moles/Vol] 135 mmol/L 136-145 [facility] Triglyceride [Mass/Vol] 174 mg/dL <199 [facility] Comment on above: The drugs N-Acetylcy steine and Metamizole may falsely depress this assay.Serum Triglycerides Reference Interval Normal <150 mg/dL Borderline high 150 - 199 mg/dL High 200 - 499 mg/dL Very High > or = 500 mg/dL WBC (Bld) [#/Vol] 6.6 10*3/uL 4.4-11.0 [facility] Blood erythrocytes count (nu mber/volume)Ordered By: Mary Dumont on 09-09-2023 RBC (Bld) [#/Vol] 5.06 10*6/uL 4.6-6.2 [facility] Blood hemoglobin measurement (mass/volume)Ordered By: Mary Dumont on 09-09-2023 Hemoglobin (Bld) [Mass/Vol] 16.1 g/dL 13.0-16.5 [facility] Blood lymphocytes/100 leukoc ytesOrdered By: Mary Dumont on 09-09-2023 Lymphocytes/100 WBC (Bld) 28.4 % 19-41 [facility] Blood monocytes/100 leukocyt esOrdered By: Mary Dumont on 09-09-2023 Monocytes/100 WBC (Bld) 9.1 % 0-10 [facility] Blood platelet mean volumeOr dered By: Mary Dumont on 09-09-2023 Platelet mean volume (Bld) [Entitic vol] 9.3 fL 6.2-12.0 [facility] Determination of erythrocyte mean corpuscular volume (MCV)Ordered By: Mary Dumont on 09-09-2023 MCV (RBC) [Entitic vol] 95.1 fL 80-94 [facility] Hematocrit Auto (Bld) [Volum e fraction]Ordered By: Mary Dumont on 09-09-2023 Hematocrit (Bld) [Volume fraction] 48.1 % 40-54 [facility] Laboratory - Chemistry and C hemistry - challengeOrdered By: Mary Dumont on 09-09-2023 ALP [Catalytic activity/Vol] 78 U/L 45-117 [facility] ALT [Catalytic activity/Vol] 59 U/L 16-61 [facility] CO2 [Moles/Vol] 28.0 mmol/L 21.0-32.0 [facility] Globulin (S) [Mass/Vol] 3.2 g/dL 2.2-4.2 [facility] Magnesium [Mass/Vol] 2.1 mg/dL 1.6-2.6 [facility] Urea nitrogen/Creatinine [Mass ratio] 22.0 mg/mg 10-20 [facility] Laboratory - Hematology and Cell countsOrdered By: Mary Dumont on 09-09-2023 Erythrocyte distribution width (RBC) [Entitic vol] 42.6 fL 35.1-43.9 [facility] Erythrocyte distribution width (RBC) [Ratio] 12.1 % 11.6-14.6 [facility] Immature granulocytes/100 WBC (Bld) 0.300 % 0.0-0.9 [facility] Comment on above: IG% - Immature Granu locytes (promyelocytes, myelocytes and metamyelocytes) > 1% indicates that a LEFT SHIFT is Present. MCH (RBC) [Entitic mass] 31.8 pg 27.0-32.0 [facility] Nucleated RBC/100 WBC (Bld) [Ratio] 0 % 0-5 [facility] MCHC Auto (RBC) [Mass/Vol]Or dered By: Mary Dumont on 09-09-2023 MCHC (RBC) [Mass/Vol] 33.5 g/dL 32-36 [facility] No Panel InformationOrdered By: Mary Dumont on 09-09-2023 Estimated GFR (MDRD) Amer 110 mL/min >60 [facility] Comment on above: GFR Calc Estimated GFR (MDRD) Non-Af Amer 91 mL/min >60 [facility] Comment on above: Non- GFR Calc Thyroid Stimulating Hormone (TSH) 1.47 uIU/mL 0.358-3.74 [facility] Vitamin D 25-Hydroxy 47.3 ng/mL [facility] Comment on above: Vitamin D 25(OH) Sta tus Range Deficiency <20 ng/mL (50nmol/L) Insufficiency 20 - 30 ng/mL (50 - 75 nmol/L) Sufficiency 30 - 100 ng/mL (75 - 250 nmol/L) Toxicity >100 ng/mL (>250 nmol/L) Platelets bldOrdered By: Joana Dumont on 09-09-2023 Platelets (Bld) [#/Vol] 237 10*3/uL 150-450 [facility] Serum or plasma albumin orlando urement (mass/volume)Ordered By: Mary Dumont on 09-09-2023 Albumin [Mass/Vol] 4.0 g/dL 3.2-5.0 [facility] Serum or plasma albumin/glob ulin mass ratioOrdered By: Mary Dumont on 09-09-2023 Albumin/Globulin [Mass ratio] 1.2 {ratio} 0.9-2.4 [facility] Serum or plasma calcium orlando urement (mass/volume)Ordered By: Mary Dumont on 09-09-2023 Calcium [Mass/Vol] 9.2 mg/dL 8.5-10.1 [facility] Serum or plasma cholesterol in HDL measurement (mass/volume)Ordered By: Mary Dumont on 09-09-2023 Cholesterol in HDL [Mass/Vol] 38 mg/dL >40 [facility] Comment on above: The drugs N-Acetylcy steine and Metamizole may falsely depress this assay. Reference Range HDL <40 mg/dL Low HDL Cholesterol HDL >or= 60 mg/dL High HDL Cholesterol Serum or plasma cholesterol in VLDL measurement (mass/volume)Ordered By: Mary Dumont on 09-09-2023 Cholesterol in VLDL [Mass/Vol] 35 mg/dL 5-40 [facility] Serum or plasma creatinine m easurement (mass/volume)Ordered By: Mary Dumont on 09-09-2023 Creatinine [Mass/Vol] 0.91 mg/dL 0.70-1.30 [facility] Comment on above: The validity of the calculated GFR & GFRAA in patients over 70 years has not been determined. Clinical correlation is essential. Serum or plasma low density lipoprotein (LDL) cholesterol measurement (mass/volume)Ordered By: Mary Dumont on 09-09-2023 Cholesterol in LDL [Mass/Vol] 131 mg/dL 0-130 [facility] Serum or plasma urea nitroge n measurement (mass/volume)Ordered By: Mary Dumont on 09-09-2023 Urea nitrogen [Mass/Vol] 20 mg/dL 7-18 [facility] Thin prep Papanicolaou smear with manual screeningOrdered By: Mary Dumont on 09-09-2023 Thin prep Papanicolaou smear with manual screening 26 U/L 15-37 [facility] Thin prep Papanicolaou smear with manual screening 6 5-15 [facility] Absolute lymphocyte countOrd ered By: Sara Hawley on 08-19-2023 Lymphocytes Auto (Unsp spec) [#/Vol] 2.80 10*3/uL 0.83-4.51 [facility] Basophil percentageOrdered B y: Sara Hawley on 08-19-2023 Basophils/100 WBC (Bld) 0.6 % 0-1 [facility] Eosinophils/100 WBC (Bld) 2.6 % 0-5 [facility] Neutrophils (Bld) [#/Vol] 4.3 10*3/uL 2.0-7.7 [facility] Neutrophils/100 WBC (Bld) 53.4 % 47-70 [facility] WBC (Bld) [#/Vol] 8.1 10*3/uL 4.4-11.0 [facility] Blood erythrocytes count (nu mber/volume)Ordered By: Sara Hawley on 08-19-2023 RBC (Bld) [#/Vol] 4.88 10*6/uL 4.6-6.2 [facility] Blood hemoglobin measurement (mass/volume)Ordered By: Sara Hawley on 08-19-2023 Hemoglobin (Bld) [Mass/Vol] 16.1 g/dL 13.0-16.5 [facility] Blood lymphocytes/100 leukoc ytesOrdered By: [facility] Hawley on 08-19-2023 Lymphocytes/100 WBC (Bld) 34.8 % 19-41 [facility] Blood monocytes/100 leukocyt esOrdered By: [facility] Hawley on 08-19-2023 Monocytes/100 WBC (Bld) 8.1 % 0-10 [facility] Blood platelet mean volumeOr dered By: Sara Hawley on 08-19-2023 Platelet mean volume (Bld) [Entitic vol] 8.9 fL 6.2-12.0 [facility] Determination of erythrocyte mean corpuscular volume (MCV)Ordered By: Sara Hawley on 08-19-2023 MCV (RBC) [Entitic vol] 94.3 fL 80-94 [facility] Hematocrit Auto (Bld) [Volum e fraction]Ordered By: [facility] Hawley on 08-19-2023 Hematocrit (Bld) [Volume fraction] 46.0 % 40-54 [facility] Laboratory - Hematology and Cell countsOrdered By: [facility] Hawley on 08-19-2023 Erythrocyte distribution width (RBC) [Entitic vol] 41.1 fL 35.1-43.9 [facility] Erythrocyte distribution width (RBC) [Ratio] 11.9 % 11.6-14.6 [facility] Immature granulocytes/100 WBC (Bld) 0.500 % 0.0-0.9 [facility] Comment on above: IG% - Immature Granu locytes (promyelocytes, myelocytes and metamyelocytes) > 1% indicates that a LEFT SHIFT is Present. MCH (RBC) [Entitic mass] 33.0 pg 27.0-32.0 [facility] Nucleated RBC/100 WBC (Bld) [Ratio] 0 % 0-5 [facility] MCHC Auto (RBC) [Mass/Vol]Or dered By: Sara Hawley on 08-19-2023 MCHC (RBC) [Mass/Vol] 35.0 g/dL 32-36 [facility] Platelets bldOrdered By: Yaw Hawley on 08-19-2023 Platelets (Bld) [#/Vol] 222 10*3/uL 150-450 [facility] No Panel InformationOrdered By: Guanaco Guerin on 07-02-2023 Giardia Antigen (ZACHERY) [facility] Stool Neutral Fats See comment [facility] Comment on above: TEST RESULTS LIMITS Fecal Fat, QualitativeFats, Neutral A, Normal Normal (<60 Droplets/HPF)Fats, Total A, Normal Normal (<100 Droplets/HPF)CommentsA: This test was developed and its performance characteristics determined by [facility]. It has not been cleared or approved by the Food and Drug Administration. TESTING PERFORMED AT [facility]. ORIGINAL REPORT ON FILE IN LAB CONTAINS ADDITIONAL TEST SITE INFORMATION. Stool Pancreatic Elastase > 500 >200 [facility] Comment on above: Result Units: ug [address] st./g Severe Pancreatic Insufficiency: <100 Moderate Pancreatic Insufficiency: 100 - 200 Normal: >200Performed at: [address] [id number] Director: Jerman Ibanez MD, Phone: [phone] Ova and parasitesOrdered By: Guanaco Guerin on 07-02-2023 Ova and parasites identified LM Nom (Unsp spec) [facility] Qualitative fecal fat or lip idsOrdered By: Guanaco Guerin on 07-02-2023 Fat Ql (Stl) Not Reportable [facility] Iron measurement (mass/mass) Ordered By: Sara Hawley on 06-24-2023 Iron (Unsp spec) [Mass/Mass] 152 ug/dL 65-175 [facility] No Panel InformationOrdered By: Sara Hawley on 06-24-2023 Total Iron Binding Capacity 315 ug/dL 250-450 [facility] Serum or plasma ferritin theresa surement (mass/volume)Ordered By: Sara Hawley on 06-24-2023 Ferritin [Mass/Vol] 587 ng/mL 26-388 [facility] Serum or plasma iron saturat ion measurement (mass fraction)Ordered By: Sara Hawley on 06-24-2023 Iron saturation [Mass fraction] 48.3 % 15.0-55.0 [facility] XR Cervical spine 4 Viewson 06-12-2023 IMPRESSION: Multilevel spondylotic changes, greatest at C5-6 and C6-7. 2 mm retrolisthesis C3 over C4 on extension. OLOGY EXAM: XR SPINE CERVI LIZZETH 4 VIEWS , 06/12/2023 13:19 PM COMPARISON: MRI dated May 30, 2023. CLINICAL INDICATIONS: neck pain RELEVANT CLINICAL HISTORY: G95.9:Cervical myelopathy AP, Lat, Flex, Ext; FINDINGS: 4 images obtained. Cervical Vertebral: Cervical vertebral body heights are maintained. There is 2 mm retrolisthesis of C3 over C4 on extension. Disc: Multilevel disc space narrowing, endplate sclerosis and osteophytosis, greatest at C5-6 and C6-7. Associated spinal canal encroachment. Joint: Multilevel facet arthrosis and uncovertebral joint arthropathy with multilevel neural foraminal encroachment. Soft Tissue: Prevertebral soft tissues are unremarkable. RADIOLOGY Harshad Peterson DO - 06/12/2023 EXAM: XR SPINE CERVICAL 4 VIEWS , 06/12/2023 13:19 PM COMPARISON: MRI dated May 30, 2023. CLINICAL INDICATIONS: neck pain RELEVANT CLINICAL HISTORY: G95.9:Cervical myelopathy AP, Lat, Flex, Ext; FINDINGS: 4 images obtained. Cervical Vertebral: Cervical vertebral body heights are maintained. There is 2 mm retrolisthesis of C3 over C4 on extension. Disc: Multilevel disc space narrowing, endplate sclerosis and osteophytosis, greatest at C5-6 and C6-7. Associated spinal canal encroachment. Joint: Multilevel facet arthrosis and uncovertebral joint arthropathy with multilevel neural foraminal encroachment. Soft Tissue: Prevertebral soft tissues are unremarkable. IMPRESSION IMPRESSION: Multilevel spondylotic changes, greatest at C5-6 and C6-7. 2 mm retrolisthesis C3 over C4 on extension. [facility] Radiology Study observation (narrative) [facility] XR Cervical spine 4 ViewsOrd ered By: Harshad Peterson on 06-12-2023 [facility] Work Phone: Absolute lymphocyte countOrd ered By: Sara Hawley on 06-11-2023 Lymphocytes Auto (Unsp spec) [#/Vol] 2.49 10*3/uL 0.83-4.51 [facility] Basophil percentageOrdered B y: Kenan Loya on 06-11-2023 Ammonia (P) [Moles/Vol] 31.0 umol/L 11-32 [facility] Basophil percentageOrdered B y: Sara Hawley on 06-11-2023 Basophils/100 WBC (Bld) 0.6 % 0-1 [facility] Eosinophils/100 WBC (Bld) 2.0 % 0-5 [facility] Neutrophils (Bld) [#/Vol] 3.7 10*3/uL 2.0-7.7 [facility] Neutrophils/100 WBC (Bld) 52.5 % 47-70 [facility] WBC (Bld) [#/Vol] 7.1 10*3/uL 4.4-11.0 [facility] Blood erythrocytes count (nu mber/volume)Ordered By: Sara Hawley on 06-11-2023 RBC (Bld) [#/Vol] 4.20 10*6/uL 4.6-6.2 [facility] Blood hemoglobin measurement (mass/volume)Ordered By: Sara Hawley on 06-11-2023 Hemoglobin (Bld) [Mass/Vol] 14.1 g/dL 13.0-16.5 [facility] Blood lymphocytes/100 leukoc ytesOrdered By: Sara Hawley on 06-11-2023 Lymphocytes/100 WBC (Bld) 35.1 % 19-41 [facility] Blood monocytes/100 leukocyt esOrdered By: Sara Hawley on 06-11-2023 Monocytes/100 WBC (Bld) 9.2 % 0-10 [facility] Blood platelet mean volumeOr dered By: Sara Hawley on 06-11-2023 Platelet mean volume (Bld) [Entitic vol] 9.6 fL 6.2-12.0 [facility] Determination of erythrocyte mean corpuscular volume (MCV)Ordered By: Sara Hawley on 06-11-2023 MCV (RBC) [Entitic vol] 99.8 fL 80-94 [facility] Hematocrit Auto (Bld) [Volum e fraction]Ordered By: Sara Hawley on 06-11-2023 Hematocrit (Bld) [Volume fraction] 41.9 % 40-54 [facility] Laboratory - Hematology and Cell countsOrdered By: Sara Hawley on 06-11-2023 Erythrocyte distribution width (RBC) [Entitic vol] 46.0 fL 35.1-43.9 [facility] Erythrocyte distribution width (RBC) [Ratio] 12.5 % 11.6-14.6 [facility] Immature granulocytes/100 WBC (Bld) 0.600 % 0.0-0.9 [facility] Comment on above: IG% - Immature Granu locytes (promyelocytes, myelocytes and metamyelocytes) > 1% indicates that a LEFT SHIFT is Present. MCH (RBC) [Entitic mass] 33.6 pg 27.0-32.0 [facility] Nucleated RBC/100 WBC (Bld) [Ratio] 0 % 0-5 [facility] MCHC Auto (RBC) [Mass/Vol]Or dered By: Sara Hawley on 06-11-2023 MCHC (RBC) [Mass/Vol] 33.7 g/dL 32-36 [facility] Platelets bldOrdered By: Yaw Hawley on 06-11-2023 Platelets (Bld) [#/Vol] 217 10*3/uL 150-450 [facility] Serum or plasma calcitriol m easurement (mass/volume)Ordered By: Kenan Loya on 06-11-2023 1,25-dihydroxyvitamin D3 [Mass/Vol] 81.3 pg/mL 24.8-81.5 [facility] Comment on above: Performed at: [address] [id number] Director: Jerman Ibanez MD, Phone: [phone] Absolute lymphocyte countOrd ered By: Sara Hawley on 05-27-2023 Lymphocytes Auto (Unsp spec) [#/Vol] 2.02 10*3/uL 0.83-4.51 [facility] Basophil percentageOrdered B y: Sara Hawley on 05-27-2023 Basophils/100 WBC (Bld) 0.5 % 0-1 [facility] Eosinophils/100 WBC (Bld) 2.4 % 0-5 [facility] Neutrophils (Bld) [#/Vol] 5.1 10*3/uL 2.0-7.7 [facility] Neutrophils/100 WBC (Bld) 63.2 % 47-70 [facility] WBC (Bld) [#/Vol] 8.1 10*3/uL 4.4-11.0 [facility] Blood erythrocytes count (nu mber/volume)Ordered By: Sara Hawley on 05-27-2023 RBC (Bld) [#/Vol] 4.15 10*6/uL 4.6-6.2 [facility] Blood hemoglobin measurement (mass/volume)Ordered By: Sara Hawley on 05-27-2023 Hemoglobin (Bld) [Mass/Vol] 14.1 g/dL 13.0-16.5 [facility] Blood lymphocytes/100 leukoc ytesOrdered By: Sara Hawley on 05-27-2023 Lymphocytes/100 WBC (Bld) 25.0 % 19-41 [facility] Blood monocytes/100 leukocyt esOrdered By: Sara Hawley on 05-27-2023 Monocytes/100 WBC (Bld) 8.4 % 0-10 [facility] Blood platelet mean volumeOr dered By: Sara Hawley on 05-27-2023 Platelet mean volume (Bld) [Entitic vol] 9.3 fL 6.2-12.0 [facility] Determination of erythrocyte mean corpuscular volume (MCV)Ordered By: Sara Hawley on 05-27-2023 MCV (RBC) [Entitic vol] 97.3 fL 80-94 [facility] Hematocrit Auto (Bld) [Volum e fraction]Ordered By: Hammadann marie Hawley on 05-27-2023 Hematocrit (Bld) [Volume fraction] 40.4 % 40-54 [facility] Laboratory - Hematology and Cell countsOrdered By: Hammadann marie Hawley on 05-27-2023 Erythrocyte distribution width (RBC) [Entitic vol] 45.1 fL 35.1-43.9 [facility] Erythrocyte distribution width (RBC) [Ratio] 12.7 % 11.6-14.6 [facility] Immature granulocytes/100 WBC (Bld) 0.500 % 0.0-0.9 [facility] Comment on above: IG% - Immature Granu locytes (promyelocytes, myelocytes and metamyelocytes) > 1% indicates that a LEFT SHIFT is Present. MCH (RBC) [Entitic mass] 34.0 pg 27.0-32.0 [facility] Nucleated RBC/100 WBC (Bld) [Ratio] 0 % 0-5 [facility] MCHC Auto (RBC) [Mass/Vol]Or dered By: Sara Hawley on 05-27-2023 MCHC (RBC) [Mass/Vol] 34.9 g/dL 32-36 [facility] Platelets bldOrdered By: Yaw Hawley on 05-27-2023 Platelets (Bld) [#/Vol] 218 10*3/uL 150-450 [facility] Absolute lymphocyte countOrd ered By: Hammadann marie Hawley on 05-13-2023 Lymphocytes Auto (Unsp spec) [#/Vol] 2.67 10*3/uL 0.83-4.51 [facility] Basophil percentageOrdered B y: Sara Hawley on 05-13-2023 Basophils/100 WBC (Bld) 0.4 % 0-1 [facility] Eosinophils/100 WBC (Bld) 2.9 % 0-5 [facility] Neutrophils (Bld) [#/Vol] 4.2 10*3/uL 2.0-7.7 [facility] Neutrophils/100 WBC (Bld) 55.2 % 47-70 [facility] WBC (Bld) [#/Vol] 7.6 10*3/uL 4.4-11.0 [facility] Blood erythrocytes count (nu mber/volume)Ordered By: [facility] on 05-13-2023 RBC (Bld) [#/Vol] 4.22 10*6/uL 4.6-6.2 [facility] Blood hemoglobin measurement (mass/volume)Ordered By: Sara Hawley on 05-13-2023 Hemoglobin (Bld) [Mass/Vol] 14.1 g/dL 13.0-16.5 [facility] Blood lymphocytes/100 leukoc ytesOrdered By: [facility] Marleen on 05-13-2023 Lymphocytes/100 WBC (Bld) 35.1 % 19-41 [facility] Blood monocytes/100 leukocyt esOrdered By: [facility] Marleen on 05-13-2023 Monocytes/100 WBC (Bld) 6.0 % 0-10 [facility] Blood platelet mean volumeOr dered By: [facility] Marleen on 05-13-2023 Platelet mean volume (Bld) [Entitic vol] 9.1 fL 6.2-12.0 [facility] Determination of erythrocyte mean corpuscular volume (MCV)Ordered By: [facility] Marleen on 05-13-2023 MCV (RBC) [Entitic vol] 98.3 fL 80-94 [facility] Hematocrit Auto (Bld) [Volum e fraction]Ordered By: [facility] Marleen on 05-13-2023 Hematocrit (Bld) [Volume fraction] 41.5 % 40-54 [facility] Laboratory - Hematology and Cell countsOrdered By: [facility] Marleen on 05-13-2023 Erythrocyte distribution width (RBC) [Entitic vol] 45.5 fL 35.1-43.9 [facility] Erythrocyte distribution width (RBC) [Ratio] 12.6 % 11.6-14.6 [facility] Immature granulocytes/100 WBC (Bld) 0.400 % 0.0-0.9 [facility] Comment on above: IG% - Immature Granu locytes (promyelocytes, myelocytes and metamyelocytes) > 1% indicates that a LEFT SHIFT is Present. MCH (RBC) [Entitic mass] 33.4 pg 27.0-32.0 [facility] Nucleated RBC/100 WBC (Bld) [Ratio] 0 % 0-5 [facility] Auto (RBC) [Mass/Vol]Or dered By: Sara Marleen on 05-13-2023 MCHC (RBC) [Mass/Vol] 34.0 g/dL 32-36 [facility] Platelets bldOrdered By: Yaw Hawley on 05-13-2023 Platelets (Bld) [#/Vol] 230 10*3/uL 150-450 [facility] XR Spine Lumbar and Sacrum 5 Viewson 05-08-2023 IMPRESSION: Degenerative disc disease and facet arthrosis most severe at L5-S1 and to a lesser extent L4-5. No instability with flexion or extension. OLOGY EXAM: XR SPINE LUMBOSACRAL 5 VIEWS VIEWS, 05/08/2023 13:13 PM COMPARISON: September 03, 2016 CLINICAL INDICATIONS: back pain RELEVANT CLINICAL HISTORY: M51.36:Degenerative disc disease, lumbar AP, lat, Flex , Ext views; FINDINGS: 5 images obtained including flexion and extension. Vertebral: There are 5 typical lumbar spine vertebral bodies in anatomic alignment. No compression deformity. No spondylolysis. No instability with flexion or extension. Disc: Diffuse degenerative disc disease most severe at L5-S1. Joint: Facet arthrosis L4-5 and L5-S1. RADIOLOGY Philip Boudreaux MD - 05/08/2023 EXAM: XR SPINE LUMBOSACRAL 5 VIEWS VIEWS, 05/08/2023 13:13 PM COMPARISON: September 03, 2016 CLINICAL INDICATIONS: back pain RELEVANT CLINICAL HISTORY: M51.36:Degenerative disc disease, lumbar AP, lat, Flex , Ext views; FINDINGS: 5 images obtained including flexion and extension. Vertebral: There are 5 typical lumbar spine vertebral bodies in anatomic alignment. No compression deformity. No spondylolysis. No instability with flexion or extension. Disc: Diffuse degenerative disc disease most severe at L5-S1. Joint: Facet arthrosis L4-5 and L5-S1. IMPRESSION IMPRESSION: Degenerative disc disease and facet arthrosis most severe at L5-S1 and to a lesser extent L4-5. No instability with flexion or extension. [facility] Radiology Study observation (narrative) [facility] XR Spine Lumbar and Sacrum 5 ViewsOrdered By: Philip Boudreaux on 05-08-2023 [facility] Work Phone: Absolute lymphocyte countOrd ered By: Guanaco Guerin on 05-01-2023 Lymphocytes Auto (Unsp spec) [#/Vol] 2.04 10*3/uL 0.83-4.51 [facility] Basophil percentageOrdered B y: Guanaco Guerin on 05-01-2023 Basophils/100 WBC (Bld) 0.5 % 0-1 [facility] Eosinophils/100 WBC (Bld) 1.6 % 0-5 [facility] Neutrophils (Bld) [#/Vol] 5.2 10*3/uL 2.0-7.7 [facility] Neutrophils/100 WBC (Bld) 64.9 % 47-70 [facility] WBC (Bld) [#/Vol] 8.1 10*3/uL 4.4-11.0 [facility] Blood erythrocytes count (nu mber/volume)Ordered By: Guanaco Guerin on 05-01-2023 RBC (Bld) [#/Vol] 4.57 10*6/uL 4.6-6.2 [facility] Blood hemoglobin measurement (mass/volume)Ordered By: Guanaco Guerin on 05-01-2023 Hemoglobin (Bld) [Mass/Vol] 15.0 g/dL 13.0-16.5 [facility] Blood lymphocytes/100 leukoc ytesOrdered By: Guanaco Guerin on 05-01-2023 Lymphocytes/100 WBC (Bld) 25.3 % 19-41 [facility] Blood monocytes/100 leukocyt esOrdered By: Guanaco Guerin on 05-01-2023 Monocytes/100 WBC (Bld) 7.1 % 0-10 [facility] Blood platelet mean volumeOr dered By: Guanaco Guerin on 05-01-2023 Platelet mean volume (Bld) [Entitic vol] 9.2 fL 6.2-12.0 [facility] Determination of erythrocyte mean corpuscular volume (MCV)Ordered By: Guanaco Guerin on 05-01-2023 MCV (RBC) [Entitic vol] 95.4 fL 80-94 [facility] Hematocrit Auto (Bld) [Volum e fraction]Ordered By: Guanaco Guerin on 05-01-2023 Hematocrit (Bld) [Volume fraction] 43.6 % 40-54 [facility] INR in Blood by Coagulation assayOrdered By: Guanaco Guerin on 05-01-2023 INR Coag (Bld) [Relative time] 1.0 {INR} [facility] Laboratory - CoagulationOrde red By: Guanaco Guerin on 05-01-2023 aPTT Coag (Bld) [Time] 25.9 s 24.1-36.2 [facility] PT Coag (PPP) [Time] 12.9 s 11.7-14.9 [facility] Laboratory - Hematology and Cell countsOrdered By: Guanaco Guerin on 05-01-2023 Erythrocyte distribution width (RBC) [Entitic vol] 43.0 fL 35.1-43.9 [facility] Erythrocyte distribution width (RBC) [Ratio] 12.5 % 11.6-14.6 [facility] Immature granulocytes/100 WBC (Bld) 0.600 % 0.0-0.9 [facility] Comment on above: IG% - Immature Granu locytes (promyelocytes, myelocytes and metamyelocytes) > 1% indicates that a LEFT SHIFT is Present. MCH (RBC) [Entitic mass] 32.8 pg 27.0-32.0 [facility] Nucleated RBC/100 WBC (Bld) [Ratio] 0 % 0-5 [facility] MCHC Auto (RBC) [Mass/Vol]Or dered By: Guanaco Guerin on 05-01-2023 MCHC (RBC) [Mass/Vol] 34.4 g/dL 32-36 [facility] Platelets bldOrdered By: David Guerin on 05-01-2023 Platelets (Bld) [#/Vol] 261 10*3/uL 150-450 [facility] Absolute lymphocyte countOrd ered By: Sara Hawley on 04-29-2023 Lymphocytes Auto (Unsp spec) [#/Vol] 2.85 10*3/uL 0.83-4.51 [facility] Basophil percentageOrdered B y: Sara Hawley on 04-29-2023 Basophils/100 WBC (Bld) 0.5 % 0-1 [facility] Eosinophils/100 WBC (Bld) 2.9 % 0-5 [facility] Neutrophils (Bld) [#/Vol] 4.2 10*3/uL 2.0-7.7 [facility] Neutrophils/100 WBC (Bld) 51.8 % 47-70 [facility] WBC (Bld) [#/Vol] 8.1 10*3/uL 4.4-11.0 [facility] Blood erythrocytes count (nu mber/volume)Ordered By: Sara Hawley on 04-29-2023 RBC (Bld) [#/Vol] 4.55 10*6/uL 4.6-6.2 [facility] Blood hemoglobin measurement (mass/volume)Ordered By: Sara Hawley on 04-29-2023 Hemoglobin (Bld) [Mass/Vol] 15.3 g/dL 13.0-16.5 [facility] Blood lymphocytes/100 leukoc ytesOrdered By: Sara Hawley on 04-29-2023 Lymphocytes/100 WBC (Bld) 35.3 % 19-41 [facility] Blood monocytes/100 leukocyt esOrdered By: Sara Hawley on 04-29-2023 Monocytes/100 WBC (Bld) 9.0 % 0-10 [facility] Blood platelet mean volumeOr dered By: Sara Hawley on 04-29-2023 Platelet mean volume (Bld) [Entitic vol] 9.2 fL 6.2-12.0 [facility] Determination of erythrocyte mean corpuscular volume (MCV)Ordered By: Sara Hawley on 04-29-2023 MCV (RBC) [Entitic vol] 95.6 fL 80-94 [facility] Hematocrit Auto (Bld) [Volum e fraction]Ordered By: Sara Hawley on 04-29-2023 Hematocrit (Bld) [Volume fraction] 43.5 % 40-54 [facility] Laboratory - Hematology and Cell countsOrdered By: Sara Hawley on 04-29-2023 Erythrocyte distribution width (RBC) [Entitic vol] 43.2 fL 35.1-43.9 [facility] Erythrocyte distribution width (RBC) [Ratio] 12.3 % 11.6-14.6 [facility] Immature granulocytes/100 WBC (Bld) 0.500 % 0.0-0.9 [facility] Comment on above: IG% - Immature Granu locytes (promyelocytes, myelocytes and metamyelocytes) > 1% indicates that a LEFT SHIFT is Present. MCH (RBC) [Entitic mass] 33.6 pg 27.0-32.0 [facility] Nucleated RBC/100 WBC (Bld) [Ratio] 0 % 0-5 [facility] MCHC Auto (RBC) [Mass/Vol]Or dered By: Saar Hawley on 04-29-2023 MCHC (RBC) [Mass/Vol] 35.2 g/dL 32-36 [facility] Platelets bldOrdered By: Yaw Hawley on 04-29-2023 Platelets (Bld) [#/Vol] 231 10*3/uL 150-450 [facility] Absolute lymphocyte countOrd ered By: Dr. Hawley on 03-14-2023 Lymphocytes Auto (Unsp spec) [#/Vol] 2.64 10*3/uL 0.83-4.51 [facility] Basophil percentageOrdered B y: Dr. Hawley on 03-14-2023 Basophils/100 WBC (Bld) 0.7 % 0-1 [facility] Eosinophils/100 WBC (Bld) 3.3 % 0-5 [facility] Neutrophils (Bld) [#/Vol] 5.3 10*3/uL 2.0-7.7 [facility] Neutrophils/100 WBC (Bld) 57.3 % 47-70 [facility] WBC (Bld) [#/Vol] 9.2 10*3/uL 4.4-11.0 [facility] Blood erythrocytes count (nu mber/volume)Ordered By: Dr. Hawley on 03-14-2023 RBC (Bld) [#/Vol] 5.21 10*6/uL 4.6-6.2 [facility] Blood hemoglobin measurement (mass/volume)Ordered By: Dr. Hawley on 03-14-2023 Hemoglobin (Bld) [Mass/Vol] 17.2 g/dL 13.0-16.5 [facility] Blood lymphocytes/100 leukoc ytesOrdered By: Dr. Hawley on 03-14-2023 Lymphocytes/100 WBC (Bld) 28.8 % 19-41 [facility] Blood monocytes/100 leukocyt esOrdered By: Dr. Hawley on 03-14-2023 Monocytes/100 WBC (Bld) 9.1 % 0-10 [facility] Blood platelet mean volumeOr dered By: Dr. Hawley on 03-14-2023 Platelet mean volume (Bld) [Entitic vol] 9.3 fL 6.2-12.0 [facility] Determination of erythrocyte mean corpuscular volume (MCV)Ordered By: Dr. Hawley on 03-14-2023 MCV (RBC) [Entitic vol] 94.8 fL 80-94 [facility] Hematocrit Auto (Bld) [Volum e fraction]Ordered By: Dr. Hawley on 03-14-2023 Hematocrit (Bld) [Volume fraction] 49.4 % 40-54 [facility] Iron measurement (mass/mass) Ordered By: Guanaco Guerin on 03-14-2023 Iron (Unsp spec) [Mass/Mass] 133 ug/dL 65-175 [facility] Comment on above: Slight Hemolysis, Re sult may be falsely increased. Laboratory - Hematology and Cell countsOrdered By: Dr. Hawley on 03-14-2023 Erythrocyte distribution width (RBC) [Entitic vol] 41.8 fL 35.1-43.9 [facility] Erythrocyte distribution width (RBC) [Ratio] 12.0 % 11.6-14.6 [facility] Immature granulocytes/100 WBC (Bld) 0.800 % 0.0-0.9 [facility] Comment on above: IG% - Immature Granu locytes (promyelocytes, myelocytes and metamyelocytes) > 1% indicates that a LEFT SHIFT is Present. MCH (RBC) [Entitic mass] 33.0 pg 27.0-32.0 [facility] Nucleated RBC/100 WBC (Bld) [Ratio] 0 % 0-5 [facility] Auto (RBC) [Mass/Vol]Or dered By: Dr. 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 Biochemical testing such as transferrin-iron saturation and/or serum ferritin studies is recommended to confirm a diagnosis. See Additional Information and Comments. Please Note: Additional Clinical Information:Hereditary hemochromatosis (HFE related) is an autosomal recessive iron storage disorder. Patients may have a genetic diagnosis of hereditary hemochromatosis and never show clinical symptoms. Clinical symptoms typically appear between 40 to 60 years in males and after menopause in females. Signs and symptoms may include organ damage, primarily in the liver, risk for hepatocellular carcinoma, diabetes, and heart disease due to iron accumulation. Life expectancy may be decreased in individuals who develop cirrhosis. Treatment for clinically symptomatic individuals may include therapeutic phlebotomy. Liver transplant may be used to treat end stage liver failure. For preventive care, monitoring for iron overload is recommended for patients who are homozygous for c.845G>A(p.Ugc131Mcp) and have yet to experience clinical symptoms.Comments:The most common HFE variants associated with hereditaryhemochromatosis are c.845G>A (p.Oco255Pzb), c.187C>G (p.Igj62Buy), c.193A>T (p.Tpo82Xke). While patients homozygous for c.845G>A (p.Zdj981Dsv) are the most likely to present clinical symptoms, less than 10% develop clinically significant iron overload with tissue and organ damage.Genetic counseling is recommended to discuss the potential clinical implications of positive results, as well as recommendations for testing family members.Genetic Coordinators are available for health care providers to discuss results at [phone] Details:Three variants analyzed:c.845G>A (p.Fuu493Bef), commonly referred to as C282Yc.187C>G (p.Mfd09Fyw), commonly referred to as H63Dc.193A>T (p.Oii24Zdk), commonly referred to as M13GLrhvlil/Limitations:DNA Analysis of the HFE gene (NM_[id number]) was performed by PCR amplification followed by restriction enzyme digestion analyses.Results must be combined with clinical information for the most accurate interpretation. Molecular-based testing is highly accurate, but as in any laboratory test, diagnostic errors may occur. False positive or false negative results may occur for reasons that include genetic variants, blood transfusions, bone marrow transplantation, somatic or tissue-specific mosaicism, mislabeledsamples, or erroneous representation of family relationships.This test was developed and its performance characteristicsdetermined by [facility]. It has not been cleared or approved by the Food and Drug Administration.References:Robbin BR, Simeon PC, Dulce Maria KV, Bakari LW, [employer] ; [employer] for [employer] Liver Diseases. Diagnosis and management of hemochromatosis: 2011 practice guideline by the [employer] Liver Diseases. Hepatology. 2011 Mar;54(1):328-43. doi: 10.1002/hep.32630. PMID: 85010037; PMCID: [id number].Jose G, Cristiane P, Mahesh PEREIRA, Ebenezer H, Georgina O, Gene S, Sung I, Erasmo M, Froy S. [facility] best practice guidelines for the molecular genetic diagnosis of hereditary hemochromatosis (HH). Eur J Hum Jessica. 2016 Dec;24(4):479-95. doi: 10.1038/ejhg.2015.128.Epub 2014Apr 06. PMID: 82942619; PMCID: SDQ6187304.Reviewed by: Alea Elias, PhD TESTING PERFORMED AT [facility]. ORIGINAL REPORT ON FILE IN LAB CONTAINS ADDITIONAL TEST SITE INFORMATION. Total Iron Binding Capacity 331 ug/dL 250-450 [facility] Platelets bldOrdered By: Dr. Hawley on 03-14-2023 Platelets (Bld) [#/Vol] 289 10*3/uL 150-450 [facility] Serum or plasma ferritin theresa surement (mass/volume)Ordered By: Dr. Hawley on 03-14-2023 Ferritin [Mass/Vol] 1524 ng/mL 26-388 [facility] Serum or plasma iron saturat ion measurement (mass fraction)Ordered By: Guanaco Guerin on 03-14-2023 Iron saturation [Mass fraction] 40.2 % 15.0-55.0 [facility] No Panel InformationOrdered By: Guanaco Guerin on 03-10-2023 Giardia Antigen (ZACHERY) [facility] Ova and parasitesOrdered By: Guanaco Guerin on 03-10-2023 Ova and parasites identified LM Nom (Unsp spec) [facility] No Panel InformationOrdered By: Guanaco Guerin on 02-28-2023 Giardia Antigen (ZACHERY) [facility] Stool Calprotectin 42 ug/g 0-120 [facility] Comment on above: Concentration Interp retation Follow-Up< 5 - 50 ug/g Normal None>50 -120 ug/g Borderline Re-evaluate in 4-6 weeks >120 ug/g Abnormal Repeat as clinically indicatedPerformed at: [facility] [id number] Director: Ld Samaniego PhD, Phone: [phone] at: [facility] [id number] Director: Jerman Ibanez MD, Phone: [phone] Stool Neutral Fats Normal . [facility] Comment on above: Normal (<60 Droplets /HPF) Stool Pancreatic Elastase 122 >200 [facility] Comment on above: Result Units: ug [address] st./g Severe Pancreatic Insufficiency: <100 Moderate Pancreatic Insufficiency: 100 - 200 Normal: >200Performed at: [facility] [id number] Director: Jerman Ibanez MD, Phone: [phone] Ova and parasitesOrdered By: Guanaco Guerin on 02-28-2023 Ova and parasites identified LM Nom (Unsp spec) [facility] Qualitative fecal fat or lip idsOrdered By: Guanaco Guerin on 02-28-2023 Fat Ql (Stl) Normal . [facility] Comment on above: Normal (<100 Droplet s/HPF) Stool Clostridium difficile detectionOrdered By: Guanaco Guerin on 02-28-2023 C. difficile Ql (Stl) [facility] Stool gastrointestinal hemog lobin detection by immunologic methodOrdered By: Guanaco Guerin on 02-28-2023 Lower GI hemoglobin IA Ql (Stl) [facility] Stool lactoferrin detection by immunoassayOrdered By: Guanaco Guerin on 02-28-2023 Lactoferrin IA Ql (Stl) [facility] Absolute lymphocyte countOrd ered By: Guanaco Guerin on 02-21-2023 Lymphocytes Auto (Unsp spec) [#/Vol] 2.92 10*3/uL 0.83-4.51 [facility] Atypical perinuclear antineu trophil cytoplasmic antibodies measurementOrdered By: Guanaco Guerin on 02-21-2023 Neutrophil cytoplasmic Ab.perinuclear.atypical IF (S) [Titer] <1:20 titer Neg:<1:20 [facility] Comment on above: The atypical pANCA p attern has been observed in asignificant percentage of patients with ulcerative colitis,primary sclerosing cholangitis and autoimmune hepatitis. Basophil percentageOrdered B y: Guanaco Guerin on 02-21-2023 Ammonia (P) [Moles/Vol] 38.0 umol/L - [facility] Basophil percentage < 0.2 AI 0.0-0.9 [facility] Basophils/100 WBC (Bld) 0.8 % 0-1 [facility] Bilirubin [Mass/Vol] 0.40 mg/dL 0.20-1.00 [facility] Comment on above: For patients on eltr ombopag therapy, use of Dimension [place] TBIL is not recommended. Chloride [Moles/Vol] 100 mmol/L 98-107 [facility] Eosinophils/100 WBC (Bld) 3.5 % 0-5 [facility] Glucose [Mass/Vol] 114 mg/dL 74-106 [facility] Comment on above: Fasting Glucose resu lt from 100 to 125 mg/dL suggests IMPAIRED HOMEOSTASIS per A.D.A. criteria. LDH [Catalytic activity/Vol] 179 U/L 87-241 [facility] Neutrophils (Bld) [#/Vol] 3.5 10*3/uL 2.0-7.7 [facility] Neutrophils/100 WBC (Bld) 47.4 % 47-70 [facility] Potassium [Moles/Vol] 4.0 mmol/L 3.5-5.1 [facility] Protein [Mass/Vol] 7.5 g/dL 6.4-8.2 [facility] Sodium [Moles/Vol] 136 mmol/L 136-145 [facility] WBC (Bld) [#/Vol] 7.4 10*3/uL 4.4-11.0 [facility] Blood erythrocytes count (nu mber/volume)Ordered By: Guanaco Guerin on 02-21-2023 RBC (Bld) [#/Vol] 4.73 10*6/uL 4.6-6.2 [facility] Blood hemoglobin measurement (mass/volume)Ordered By: Guanaco Guerin on 02-21-2023 Hemoglobin (Bld) [Mass/Vol] 16.0 g/dL 13.0-16.5 [facility] Blood lymphocytes/100 leukoc ytesOrdered By: Guanaco Guerin on 02-21-2023 Lymphocytes/100 WBC (Bld) 39.6 % 19-41 [facility] Blood monocytes/100 leukocyt esOrdered By: Guanaco Guerin on 02-21-2023 Monocytes/100 WBC (Bld) 8.4 % 0-10 [facility] Blood platelet mean volumeOr dered By: Guanaco Guerin on 02-21-2023 Platelet mean volume (Bld) [Entitic vol] 9.4 fL 6.2-12.0 [facility] Chocolate RASTOrdered By: Ra edwin Guerin on 02-21-2023 Chocolate IgE Qn (S) <0.10 kU/L Class 0 [facility] Comment on above: Performed at: - [facility] [employer] [address] [id number] Director: Ld Samaniego PhD, Phone: [phone] at: [address] [id number] Director: Jerman Ibanez MD, Phone: [phone] Determination of erythrocyte mean corpuscular volume (MCV)Ordered By: Guanaco Guerin on 02-21-2023 MCV (RBC) [Entitic vol] 95.1 fL 80-94 [facility] Erythrocyte sedimentation ra teOrdered By: Guanaco Guerin on 02-21-2023 ESR (Bld) [Velocity] 4 mm/h 0-20 [facility] HIV 1 and HIV-2 antibody ass ay with HIV-1 p24 antigen detectionOrdered By: Guanaco Guerin on 02-21-2023 HIV 1+2 Ab+HIV1 p24 Ag IA Ql Non-Reactive Nonreactive [facility] Hematocrit Auto (Bld) [Volum e fraction]Ordered By: Guanaco Guerin on 02-21-2023 Hematocrit (Bld) [Volume fraction] 45.0 % 40-54 [facility] Hemoglobin in reticulocytes (mass per reticulocyte)Ordered By: Guanaco Guerin on 02-21-2023 Hemoglobin (Reticulocytes) [Entitic mass] 35.8 pg 30-35 [facility] INR in Blood by Coagulation assayOrdered By: Guanaco Guerin on 02-21-2023 INR Coag (Bld) [Relative time] 1.0 {INR} [facility] Interpretation of serum or p lasma protein pattern by immunofixation (narrative resultOrdered By: Guanaco Guerin on 02-21-2023 Protein Fractions Immunofixation Hubert [Interp] See comment [facility] Comment on above: Result: Not Observed Iron measurement (mass/mass) Ordered By: Guanaco Guerin on 02-21-2023 Iron (Unsp spec) [Mass/Mass] 279 ug/dL 65-175 [facility] Laboratory - Chemistry and C hemistry - challengeOrdered By: Guanaco Guerin on 02-21-2023 ALP [Catalytic activity/Vol] 80 U/L 45-117 [facility] ALT [Catalytic activity/Vol] 86 U/L 16-61 [facility] CK [Catalytic activity/Vol] 267 U/L 39-308 [facility] CO2 [Moles/Vol] 30.0 mmol/L 21.0-32.0 [facility] Urea nitrogen/Creatinine [Mass ratio] 21.8 mg/mg 10-20 [facility] Laboratory - CoagulationOrde red By: Guanaco Guerin on 02-21-2023 PT Coag (PPP) [Time] 13.0 s 11.7-14.9 [facility] Laboratory - Hematology and Cell countsOrdered By: Guanaco Guerin on 02-21-2023 Erythrocyte distribution width (RBC) [Entitic vol] 41.7 fL 35.1-43.9 [facility] Erythrocyte distribution width (RBC) [Ratio] 11.9 % 11.6-14.6 [facility] Immature granulocytes/100 WBC (Bld) 0.300 % 0.0-0.9 [facility] Comment on above: IG% - Immature Granu locytes (promyelocytes, myelocytes and metamyelocytes) > 1% indicates that a LEFT SHIFT is Present. MCH (RBC) [Entitic mass] 33.8 pg 27.0-32.0 [facility] Nucleated RBC/100 WBC (Bld) [Ratio] 0 % 0-5 [facility] Laboratory - Miscellaneous t estsOrdered By: Guanaco Guerin on 02-21-2023 Service comment ([facility] spec) [Interp] Comment . [facility] Comment on above: Levels of Specific I gE Class Description of Class ----- < 0.10 0 Negative 0.10 - 0.31 0/I Equivocal/Low 0.32 - 0.55 I Low 0.56 - 1.40 II Moderate 1.41 - 3.90 III High 3.91 - 19.00 IV Very High 19.01 - 100.00 V Very High >100.00 Very High MCHC Auto (RBC) [Mass/Vol]Or dered By: Guanaco Friend on 02-21-2023 MCHC (RBC) [Mass/Vol] 35.6 g/dL 32-36 [facility] No Panel InformationOrdered By: Guanaco Friend on 02-21-2023 Addendum Document Comment . [facility] Comment on above: Protein electrophore sis scan will follow via computer,mail, or filler shredding machine loader delivery. Centromere B Antibody <0.2 AI 0.0-0.9 [facility] Ceruloplasmin 17.6 mg/dL 16.0-31.0 [facility] Endomysial IgA Antibody Negative Negative [facility] Estimated GFR (MDRD) Amer 104 mL/min >60 [facility] Comment on above: GFR Calc Estimated GFR (MDRD) Non-Af Amer 86 mL/min >60 [facility] Comment on above: Non- GFR Calc Haptoglobin 105 mg/dL 29-370 [facility] Comment on above: Performed at: [address] [id number] Director: Ld Samaniego PhD, Phone: [phone] at: [facility] [id number] Director: Jerman Ibanez MD, Phone: [phone] Hepatitis A IgM Antibody Negative Negative [facility] Hepatitis B Core IgM Antibody Negative Negative [facility] Hepatitis C Antibody (EIA) Non-Reactive Non Reactive [facility] Hepatitis C Antibody Comment Comment . [facility] Comment on above: Not infected with HC V unless early or acute infection issuspected (which may be delayed in an immunocompromisedindividual), or other evidence exists to indicate HCVinfection. Immature Reticulocyte Fraction 4.40 % 3.00-15.90 [facility] Immunoglobulin E 234 IU/mL 6-495 [facility] Reticulocyte Count 2.25 % 0.5-1.5 [facility] TIRE BAGGER Antibody 0.2 AI 0.0-0.9 [facility] Scallop Allergen <0.10 kU/L Class 0 [facility] Seafood Group Allergens (RAST) Negative . [facility] Comment on above: Allergens in this mi x are: Blue mussel Fish [place] Shrimp Tuna Sesame Seed Allergen IgE Antibody <0.10 kU/L Class 0 [facility] Shrimp Allergen <0.10 kU/L Class 0 [facility] Total Iron Binding Capacity 314 ug/dL 250-450 [facility] Platelets bldOrdered By: David Guerin on 02-21-2023 Platelets (Bld) [#/Vol] 229 10*3/uL 150-450 [facility] Serum DNA double strand anti body assay (units/volume)Ordered By: Guanaco Guerin on 02-21-2023 DNA double strand Ab Qn (S) [IU]/mL 0-9 [facility] Comment on above: Negative <5 Equivoca l 5 - 9 Positive >9 Serum [place]-1 antibody assay (u nits/volume)Ordered By: Guanaco Guerin on 02-21-2023 [place]-1 extractable nuclear Ab Qn (S) <0.2 AI 0.0-0.9 [facility] Serum Scl-70 extractable nuc lear antibody assay (units/volume)Ordered By: Guanaco Guerin on 02-21-2023 SCL-70 extractable nuclear Ab Qn (S) <0.2 AI 0.0-0.9 [facility] Serum Aaron extractable nucl ear antibody detectionOrdered By: Guanaco Guerin on 02-21-2023 Aaron extractable nuclear Ab Ql (S) <0.2 AI 0.0-0.9 [facility] Serum [id number] measu rement by electrophoresisOrdered By: Guanaco Guerin on 02-21-2023 Alpha 1 globulin Elph [Mass/Vol] 0.2 g/dL 0.0-0.4 [facility] Alpha 1 globulin Elph [Mass/Vol] 0.8 g/dL 0.4-1.0 [facility] Serum beef IgE antibody assa y (units/volume)Ordered By: Guanaco Guerin on 02-21-2023 Beef IgE Qn (S) <0.10 kU/L Class 0 [facility] Serum black walnut IgE antib dane assay (units/volume)Ordered By: Guanaco Guerin on 02-21-2023 Black [place] IgE Qn (S) <0.10 kU/L Class 0 [facility] Serum clam IgE antibody assa y (units/volume)Ordered By: Guanaco Guerin on 02-21-2023 Clam IgE Qn (S) <0.10 kU/L Class 0 [facility] Serum classic neutrophil cyt oplasmic antibody assay (units/volume)Ordered By: Guanaco Guerin on 02-21-2023 Neutrophil cytoplasmic Ab.classic Qn (S) <1:20 titer Neg:<1:20 [facility] Serum codfish IgE antibody a ssay (units/volume)Ordered By: Guanaco Guerin on 02-21-2023 Codfish IgE Qn (S) <0.10 kU/L Class 0 [facility] Serum corn IgE antibody assa y (units/volume)Ordered By: Guanaco Guerin on 02-21-2023 [place] IgE Qn (S) <0.10 kU/L Class 0 [facility] Serum cow milk IgE antibody assay (units/volume)Ordered By: Guanaco Guerin on 02-21-2023 Cow milk IgE Qn (S) <0.10 kU/L Class 0 [facility] Serum egg white IgE antibody assay (units/volume)Ordered By: Guanaco Guerin on 02-21-2023 Egg white IgE Qn (S) <0.10 kU/L Class 0 [facility] Serum globulin measurement ( mass/volume)Ordered By: Guanaco Guerin on 02-21-2023 Globulin (S) [Mass/Vol] 2.6 g/dL 2.2-3.9 [facility] Serum mitochondria antibody detectionOrdered By: Guanaco Guerin on 02-21-2023 Mitochondria Ab Ql (S) <20.0 Units 0.0-20.0 [facility] Comment on above: Negative 0.0 - 20.0 Equivocal 20.1 - 24.9 Positive >24.9Mitochondrial (M2) Antibodies are found in 90-96% ofpatients with primary biliary cirrhosis. Serum or plasma C reactive p rotein measurement (mass/volume)Ordered By: Guanaco Guerin on 02-21-2023 CRP [Mass/Vol] mg/L 0.0-3.0 [facility] Comment on above: C-Reactive Protein ( CRP) provides useful information for thediagnosis, therapy and monitoring of inflammatory processesand associated diseases. For the evaluation of Relative Riskfor Cardiovascular Disease, a High Sensitivity CRP (HSCRP)should be ordered. Serum or plasma IgA measurem ent (mass/volume)Ordered By: Guanaco Guerin on 02-21-2023 IgA [Mass/Vol] 192 mg/dL 90-386 [facility] Serum or plasma IgG measurem ent (mass/volume)Ordered By: Guanacooneil Guerin on 02-21-2023 IgG [Mass/Vol] 788 mg/dL 603-1613 [facility] Serum or plasma IgM measurem ent (mass/volume)Ordered By: Guanaco Guerin on 02-21-2023 IgM [Mass/Vol] 34 mg/dL 20-172 [facility] Serum or plasma actin IgG an tibody assay (units/volume)Ordered By: Guanaco Guerin on 02-21-2023 Actin IgG Qn 5 Units 0-19 [facility] Comment on above: Negative 0 - 19 Weak positive 20 - 30 Moderate to strong positive >30 Actin Antibodies are found in 52-85% of patients with autoimmune hepatitis or chronic active hepatitis and in 22% of patients with primary biliary cirrhosis. Serum or plasma albumin [place] urement (mass/volume)Ordered By: Guanaco Guerin on 02-21-2023 Albumin [Mass/Vol] 4.3 g/dL 2.9-4.4 [facility] Serum or plasma albumin/glob ulin mass ratioOrdered By: Guanacooneil Guerin on 02-21-2023 Albumin/Globulin [Mass ratio] 1.3 {ratio} 0.9-2.4 [facility] Serum or plasma angiotensin converting enzyme measurement (enzymatic activity/volume)Ordered By: Guanaco Guerin on 02-21-2023 Angiotensin converting enzyme [Catalytic activity/Vol] U/L 14-82 [facility] Serum or plasma beta globuli n measurement by electrophoresis (mass/volume)Ordered By: Guanaco Guerin on 05-25-2023 Beta globulin Elph [Mass/Vol] 1.0 g/dL 0.7-1.3 [facility] Serum or plasma calcium [place] urement (mass/volume)Ordered By: Guanaco Guerin on 02-21-2023 Calcium [Mass/Vol] 9.4 mg/dL 8.5-10.1 [facility] Serum or plasma creatinine m easurement (mass/volume)Ordered By: Guanaco Guerin on 02-21-2023 Creatinine [Mass/Vol] 0.96 mg/dL 0.70-1.30 [facility] Comment on above: The validity of the calculated GFR & GFRAA in patients over 70 years has not been determined. Clinical correlation is essential. Serum or plasma ferritin theresa surement (mass/volume)Ordered By: Guanaco Guerin on 02-21-2023 Ferritin [Mass/Vol] 1442 ng/mL 26-388 [facility] Serum or plasma gamma globul in measurement by electrophoresis (mass/volume)Ordered By: Guanaco Guerin on 02-21-2023 Gamma globulin Elph [Mass/Vol] 0.6 g/dL 0.4-1.8 [facility] Serum or plasma gastrin [place] urement (mass/volume)Ordered By: Guanaco Guerin on 02-21-2023 Gastrin [Mass/Vol] 62 pg/mL 0-115 [facility] Comment on above: Siemens Immulite 200 0 Immunochemiluminometric assay (ICMA)Values obtained with different assay methods or kits cannotbe used interchangeably. Results cannot be interpreted asabsolute evidence of the presence or absence of malignantdisease. Serum or plasma hepatitis B virus surface antigen detection by immunoassayOrdered By: Guanaco Guerin on 02-21-2023 HBV surface Ag IA Ql Negative Negative [facility] Serum or plasma immunoelectr ophoresis interpretation (nominal result)Ordered By: Guanaco Guerin on 02-21-2023 Interpretation IEP [Interp] Comment . [facility] Comment on above: No monoclonality det ected. Serum or plasma iron saturat ion measurement (mass fraction)Ordered By: Guanaco Guerin on 02-21-2023 Iron saturation [Mass fraction] 88.9 % 15.0-55.0 [facility] Serum or plasma urea nitroge n measurement (mass/volume)Ordered By: Guanaco Guerin on 02-21-2023 Urea nitrogen [Mass/Vol] 21 mg/dL 7-18 [facility] Serum peanut IgE antibody as say (units/volume)Ordered By: Guanaco Guerin on 02-21-2023 Peanut IgE Qn (S) <0.10 kU/L Class 0 [facility] Serum perinuclear neutrophil cytoplasmic antibody titer by immunofluorescenceOrdered By: Guanaco Guerin on 02-21-2023 Neutrophil cytoplasmic Ab.perinuclear IF (S) [Titer] <1:20 titer Neg:<1:20 [facility] Comment on above: The presence of posi tive fluorescence exhibiting P-ANCA orC-ANCA patterns alone is not specific for the diagnosis ofWegener's Granulomatosis (WG) or microscopic polyangiitis.Decisions about treatment should not be based solely onANCA IFA results. The [employer] ANCA Group Consensusrecommends follow up testing of positive sera with both KS-3 and MPO-ANCA enzyme immunoassays. As many as 5% serumsamples are positive only by EIA. Ref. AM J Clin Cnffxa1436;111:507-513. Serum pork IgE antibody assa y (units/volume)Ordered By: Guanaco Guerin on 02-21-2023 Pork IgE Qn (S) <0.10 kU/L Class 0 [facility] Serum soybean IgE antibody a ssay (units/volume)Ordered By: Guanaco Guerin on 02-21-2023 Soybean IgE Qn (S) <0.10 kU/L Class 0 [facility] Serum tissue transglutaminas e IgA antibody assay (units/volume)Ordered By: Guanaco Guerin on 02-21-2023 tTG IgA Qn (S) <2 U/mL 0-3 [facility] Comment on above: Negative 0 - 3 Weak Positive 4 - 10 Positive >10 Tissue Transglutaminase (tTG) has been identified as the endomysial antigen. Studies have demonstr- ated that endomysial IgA antibodies have over 99% specificity for gluten sensitive enteropathy. Serum wheat IgE antibody ass ay (units/volume)Ordered By: Guanaco Guerin on 02-21-2023 Wheat IgE Qn (S) <0.10 kU/L Class 0 [facility] Serum whole egg IgE antibody assay (units/volume)Ordered By: Guanaco Guerni on 02-21-2023 Whole Egg IgE Qn (S) <0.10 kU/L Class 0 [facility] Thin prep Papanicolaou smear with manual screeningOrdered By: Guanaco Guerin on 02-21-2023 Thin prep Papanicolaou smear with manual screening 42 U/L 15-37 [facility] Thin prep Papanicolaou smear with manual screening 6 5-15 [facility] Thin prep Papanicolaou smear with manual screening 1.7 0.7-1.7 [facility] Thin prep Papanicolaou smear with manual screening 85 ug/dL 69-132 [facility] Comment on above: Detection Limit = 5 Total protein bloodOrdered B y: Guanaco Guerin on 02-21-2023 Protein [Mass/Vol] 6.9 g/dL 6.0-8.5 [facility] Whole blood hemoglobin A1c/t otal hemoglobin ratio (mass fraction)Ordered By: Guanaco Guerin on 02-21-2023 HbA1c (Bld) [Mass fraction] 6.1 % 3.8-5.6 [facility] Comment on above: Normal < 5.7 % Predi abetic 5.7 - 6.4 % Diabetic >or= 6.5 % Please note range changes. Absolute lymphocyte countOrd ered By: Dr. Dumont on 01-16-2023 Lymphocytes Auto (Unsp spec) [#/Vol] 2.61 10*3/uL 0.83-4.51 [facility] Basophil percentageOrdered B y: Dr. Dumont on 01-16-2023 Basophils/100 WBC (Bld) 0.6 % 0-1 [facility] Bilirubin [Mass/Vol] 0.30 mg/dL 0.20-1.00 [facility] Comment on above: For patients on eltr ombopag therapy, use of Dimension [place] TBIL is not recommended. Chloride [Moles/Vol] 103 mmol/L 98-107 [facility] Cholesterol [Mass/Vol] 205 mg/dL <200 [facility] Comment on above: <200 mg/dL Desirable 200-240 mg/dL Borderline >240 mg/dL High Risk Eosinophils/100 WBC (Bld) 2.8 % 0-5 [facility] Glucose [Mass/Vol] 145 mg/dL 74-106 [facility] Comment on above: Fasting Glucose resu lt greater than or equal to 126 mg/dL suggests DIABETES MELLITUS per A.D.A. criteria. Neutrophils (Bld) [#/Vol] 4.9 10*3/uL 2.0-7.7 [facility] Neutrophils/100 WBC (Bld) 56.9 % 47-70 [facility] Potassium [Moles/Vol] 4.0 mmol/L 3.5-5.1 [facility] Protein [Mass/Vol] 6.9 g/dL 6.4-8.2 [facility] Sodium [Moles/Vol] 138 mmol/L 136-145 [facility] Triglyceride [Mass/Vol] 322 mg/dL <199 [facility] Comment on above: The drugs N-Acetylcy steine and Metamizole may falsely depress this assay.Serum Triglycerides Reference Interval Normal <150 mg/dL Borderline high 150 - 199 mg/dL High 200 - 499 mg/dL Very High > or = 500 mg/dL WBC (Bld) [#/Vol] 8.6 10*3/uL 4.4-11.0 [facility] Blood erythrocytes count (nu mber/volume)Ordered By: Dr. Dumont on 01-16-2023 RBC (Bld) [#/Vol] 4.97 10*6/uL 4.6-6.2 [facility] Blood hemoglobin measurement (mass/volume)Ordered By: Dr. Dumont on 01-16-2023 Hemoglobin (Bld) [Mass/Vol] 16.4 g/dL 13.0-16.5 [facility] Blood lymphocytes/100 leukoc ytesOrdered By: Dr. Dumont on 01-16-2023 Lymphocytes/100 WBC (Bld) 30.4 % 19-41 [facility] Blood monocytes/100 leukocyt esOrdered By: Dr. Dumont on 01-16-2023 Monocytes/100 WBC (Bld) 8.8 % 0-10 [facility] Blood platelet mean volumeOr dered By: Dr. Dumont on 01-16-2023 Platelet mean volume (Bld) [Entitic vol] 9.7 fL 6.2-12.0 [facility] Determination of erythrocyte mean corpuscular volume (MCV)Ordered By: Dr. Dumont on 01-16-2023 MCV (RBC) [Entitic vol] 97.6 fL 80-94 [facility] Hematocrit Auto (Bld) [Volum e fraction]Ordered By: Dr. Dumont on 01-16-2023 Hematocrit (Bld) [Volume fraction] 48.5 % 40-54 [facility] Laboratory - Chemistry and C hemistry - challengeOrdered By: Dr. Dumont on 01-16-2023 ALP [Catalytic activity/Vol] 82 U/L 45-117 [facility] ALT [Catalytic activity/Vol] 101 U/L 16-61 [facility] CO2 [Moles/Vol] 28.0 mmol/L 21.0-32.0 [facility] Globulin (S) [Mass/Vol] 3.1 g/dL 2.2-4.2 [facility] Urea nitrogen/Creatinine [Mass ratio] 28.3 mg/mg 10-20 [facility] Laboratory - Hematology and Cell countsOrdered By: Dr. Dumont on 01-16-2023 Erythrocyte distribution width (RBC) [Entitic vol] 45.6 fL 35.1-43.9 [facility] Erythrocyte distribution width (RBC) [Ratio] 12.9 % 11.6-14.6 [facility] Immature granulocytes/100 WBC (Bld) 0.500 % 0.0-0.9 [facility] Comment on above: IG% - Immature Granu locytes (promyelocytes, myelocytes and metamyelocytes) > 1% indicates that a LEFT SHIFT is Present. MCH (RBC) [Entitic mass] 33.0 pg 27.0-32.0 [facility] Nucleated RBC/100 WBC (Bld) [Ratio] 0 % 0-5 [facility] MCHC Auto (RBC) [Mass/Vol]Or dered By: Dr. Dumont on 01-16-2023 MCHC (RBC) [Mass/Vol] 33.8 g/dL 32-36 [facility] No Panel InformationOrdered By: Dr. Dumont on 01-16-2023 Estimated GFR (MDRD) Amer 126 mL/min >60 [facility] Comment on above: GFR Calc Estimated GFR (MDRD) Non-Af Amer 104 mL/min >60 [facility] Comment on above: Non- GFR Calc Prostate Specific Antigen Screen 0.43 ng/mL 0.00-4.00 [facility] Comment on above: This test was perfor med using the TPSA assay method for GLSS chemistry system. Values obtained with differentassay methods cannot be used interchangably.When changing PSA assays in the course of monitoring apatient, additional sequential testing should be carriedout to confirm baseline values. Thyroid Stimulating Hormone (TSH) 2.02 uIU/mL 0.358-3.74 [facility] Vitamin D 25-Hydroxy 15.3 ng/mL [facility] Comment on above: Vitamin D 25(OH) Sta tus Range Deficiency <20 ng/mL (50nmol/L) Insufficiency 20 - 30 ng/mL (50 - 75 nmol/L) Sufficiency 30 - 100 ng/mL (75 - 250 nmol/L) Toxicity >100 ng/mL (>250 nmol/L) Platelets bldOrdered By: Dr. Dumont on 01-16-2023 Platelets (Bld) [#/Vol] 252 10*3/uL 150-450 [facility] Serum or plasma albumin [place] urement (mass/volume)Ordered By: Dr. Dumont on 01-16-2023 Albumin [Mass/Vol] 3.8 g/dL 3.2-5.0 [facility] Serum or plasma albumin/glob ulin mass ratioOrdered By: Dr. Dumont on 01-16-2023 Albumin/Globulin [Mass ratio] 1.2 {ratio} 0.9-2.4 [facility] Serum or plasma calcium [place] urement (mass/volume)Ordered By: Dr. Dumont on 01-16-2023 Calcium [Mass/Vol] 8.8 mg/dL 8.5-10.1 [facility] Serum or plasma cholesterol in HDL measurement (mass/volume)Ordered By: Dr. Dumont on 01-16-2023 Cholesterol in HDL [Mass/Vol] 36 mg/dL >40 [facility] Comment on above: The drugs N-Acetylcy steine and Metamizole may falsely depress this assay. Reference Range HDL <40 mg/dL Low HDL Cholesterol HDL >or= 60 mg/dL High HDL Cholesterol Serum or plasma cholesterol in VLDL measurement (mass/volume)Ordered By: Dr. Dumont on 01-16-2023 Cholesterol in VLDL [Mass/Vol] 64 mg/dL 5-40 [facility] Serum or plasma creatinine m easurement (mass/volume)Ordered By: Dr. Dumont on 01-16-2023 Creatinine [Mass/Vol] 0.81 mg/dL 0.70-1.30 [facility] Comment on above: The validity of the calculated GFR & GFRAA in patients over 70 years has not been determined. Clinical correlation is essential. Serum or plasma low density lipoprotein (LDL) cholesterol measurement (mass/volume)Ordered By: Dr. Dumont on 01-16-2023 Cholesterol in LDL [Mass/Vol] 105 mg/dL 0-130 [facility] Serum or plasma urea nitroge n measurement (mass/volume)Ordered By: Dr. Dumont on 01-16-2023 Urea nitrogen [Mass/Vol] 23 mg/dL 7-18 [facility] Thin prep Papanicolaou smear with manual screeningOrdered By: Dr. Dumont on 01-16-2023 Thin prep Papanicolaou smear with manual screening 46 U/L 15-37 [facility] Thin prep Papanicolaou smear with manual screening 7 5-15 [facility] Whole blood hemoglobin A1c/t otal hemoglobin ratio (mass fraction)Ordered By: Dr. Loya on 12-17-2022 HbA1c (Bld) [Mass fraction] 5.9 % 3.8-5.6 [facility] Comment on above: Normal < 5.7 % Predi abetic 5.7 - 6.4 % Diabetic >or= 6.5 % Please note range changes. Albumin Elph [Mass/Vol]on Albumin [Mass/Vol] 4.2 g/dL 2.9-4.4 [facility] Work Phone: Basophil percentageon 2021 Bilirubin [Mass/Vol] 0.30 mg/dL 0.20-1.00 [facility] Work Phone: Comment on above: For patients on eltr ombopag therapy, use of Dimension [place] TBIL is not recommended. Chloride [Moles/Vol] 101 mmol/L 98-107 [facility] Work Phone: [phone] Glucose [Mass/Vol] 119 mg/dL 74-106 [facility] Work Phone: [phone] Comment on above: Fasting Glucose resu lt from 100 to 125 mg/dL suggests IMPAIRED HOMEOSTASIS per A.D.A. criteria. Potassium [Moles/Vol] 4.1 mmol/L 3.5-5.1 [facility] Work Phone: [phone] Protein [Mass/Vol] 7.2 g/dL 6.4-8.2 [facility] Work Phone: [phone] Sodium [Moles/Vol] 136 mmol/L 136-145 [facility] Work Phone: [phone] WBC (Bld) [#/Vol] 6.2 10*3/uL 4.4-11.0 [facility] Work Phone: [phone] Blood erythrocytes count (nu mber/volume)on 08-20-2022 RBC (Bld) [#/Vol] 4.89 10*6/uL 4.6-6.2 [facility] Work Phone: [phone] Blood hemoglobin measurement (mass/volume)on 08-20-2022 Hemoglobin (Bld) [Mass/Vol] 16.1 g/dL 13.0-16.5 [facility] Work Phone: [phone] Blood platelet mean volumeon 08-20-2022 Platelet mean volume (Bld) [Entitic vol] 9.7 fL 6.2-12.0 [facility] Work Phone: [phone] Determination of erythrocyte mean corpuscular volume (MCV)on 08-20-2022 MCV (RBC) [Entitic vol] 95.9 fL 80-94 [facility] Work Phone: [phone] Hematocrit Auto (Bld) [Volum e fraction]on 08-20-2022 Hematocrit (Bld) [Volume fraction] 46.9 % 40-54 [facility] Work Phone: [phone] Interpretation of serum or p lasma protein pattern by immunofixation (narrative resulton 08-20-2022 Protein Fractions Immunofixation Hubert [Interp] See comment [facility] Work Phone: [phone] Comment on above: NOT OBSERVED Laboratory - Chemistry and C hemistry - challengeon 08-20-2022 ALP [Catalytic activity/Vol] 57 U/L 45-117 [facility] Work Phone: [phone] ALT [Catalytic activity/Vol] 64 U/L 16-61 [facility] Work Phone: [phone] CO2 [Moles/Vol] 29.0 mmol/L 21.0-32.0 [facility] Work Phone: [phone] Cobalamin (Vitamin B12) [Mass/Vol] 356 pg/mL 211-911 [facility] Work Phone: [phone] Urea nitrogen/Creatinine [Mass ratio] 18.7 mg/mg 10-20 [facility] Work Phone: [phone] Laboratory - Hematology and Cell countson 08-20-2022 Erythrocyte distribution width (RBC) [Entitic vol] 42.5 fL 35.1-43.9 [facility] Work Phone: [phone] Erythrocyte distribution width (RBC) [Ratio] 12.0 % 11.6-14.6 [facility] Work Phone: [phone] MCH (RBC) [Entitic mass] 32.9 pg 27.0-32.0 [facility] Work Phone: [phone] MCHC Auto (RBC) [Mass/Vol]on 08-20-2022 MCHC (RBC) [Mass/Vol] 34.3 g/dL 32-36 [facility] Work Phone: [phone] No Panel Informationon 08-20 Addendum Document Comment . [facility] Work Phone: [phone] Comment on above: Protein electrophore sis scan will follow via computer,mail, or filler shredding machine loader delivery. Estimated GFR (MDRD) Amer 119 mL/min >60 [facility] Work Phone: Comment on above: GFR Calc Estimated GFR (MDRD) Non-Af Amer 99 mL/min >60 [facility] Work Phone: Comment on above: Non- GFR Calc Thyroid Stimulating Hormone (TSH) 1.76 uIU/mL 0.358-3.74 [facility] Work Phone: [phone] Whole Blood Vitamin B1 Level 140.2 nmol/L 66.5-200.0 [facility] Work Phone: Comment on above: Performed at: [employer] [facility] [address] [id number] Director: Ld Samaniego PhD, Phone: [phone] at: - [facility] [address] [id number] Director: Jerman Ibanez MD, Phone: [phone] Platelets bldon 08-20-2022 Platelets (Bld) [#/Vol] 243 10*3/uL 150-450 [facility] Work Phone: Serum [id number] measu rement by electrophoresison 08-20-2022 Alpha 1 globulin Elph [Mass/Vol] 0.2 g/dL 0.0-0.4 [facility] Work Phone: [phone] Alpha 1 globulin Elph [Mass/Vol] 0.8 g/dL 0.4-1.0 [facility] Work Phone: [phone] Serum globulin measurement ( mass/volume)on 08-20-2022 Globulin (S) [Mass/Vol] 2.7 g/dL 2.2-3.9 [facility] Work Phone: [phone] Serum or plasma IgA measurem ent (mass/volume)on 08-20-2022 IgA [Mass/Vol] 212 mg/dL 90-386 [facility] Work Phone: [phone] Serum or plasma IgG measurem ent (mass/volume)on 08-20-2022 IgG [Mass/Vol] 766 mg/dL [phone] [facility] Work Phone: Serum or plasma IgM measurem ent (mass/volume)on 08-20-2022 IgM [Mass/Vol] 46 mg/dL 20-172 [facility] Work Phone: Serum or plasma albumin [place] urement (mass/volume)on 08-20-2022 Albumin [Mass/Vol] 4.0 g/dL 3.2-5.0 [facility] Work Phone: Serum or plasma albumin/glob ulin mass ratioon 08-20-2022 Albumin/Globulin [Mass ratio] 1.2 {ratio} 0.9-2.4 [facility] Work Phone: Serum or plasma beta globuli n measurement by electrophoresis (mass/volume)on 08-20-2022 Beta globulin Elph [Mass/Vol] 1.0 g/dL 0.7-1.3 [facility] Work Phone: Serum or plasma calcium [place] urement (mass/volume)on 08-20-2022 Calcium [Mass/Vol] 9.0 mg/dL 8.5-10.1 [facility] Work Phone: Serum or plasma creatinine m easurement (mass/volume)on 08-20-2022 Creatinine [Mass/Vol] 0.85 mg/dL 0.70-1.30 [facility] Work Phone: Comment on above: The validity of the calculated GFR & GFRAA in patients over 70 years has not been determined. Clinical correlation is essential. Serum or plasma folate measu rement (mass/volume)on 08-20-2022 Folate [Mass/Vol] 15.00 ng/mL 3.1-55.4 [facility] Work Phone: Serum or plasma gamma globul in measurement by electrophoresis (mass/volume)on 08-20-2022 Gamma globulin Elph [Mass/Vol] 0.8 g/dL 0.4-1.8 [facility] Work Phone: Serum or plasma immunoelectr ophoresis interpretation (nominal result)on 08-20-2022 Interpretation IEP [Interp] Comment . [facility] Work Phone: Comment on above: No monoclonality det ected. Serum or plasma urea nitroge n measurement (mass/volume)on 08-20-2022 Urea nitrogen [Mass/Vol] 16 mg/dL 7-18 [facility] Work Phone: Thin prep Papanicolaou smear with manual screeningon 08-20-2022 Thin prep Papanicolaou smear with manual screening 32 U/L 15-37 [facility] Work Phone: Thin prep Papanicolaou smear with manual screening 6 5-15 [facility] Work Phone: [phone] Thin prep Papanicolaou smear with manual screening 1.6 0.7-1.7 [facility] Work Phone: Total protein bloodon 2021 Protein [Mass/Vol] 6.9 g/dL 6.0-8.5 [facility] Work Phone: [phone] Whole blood hemoglobin A1c/t otal hemoglobin ratio (mass fraction)on 08-20-2022 HbA1c (Bld) [Mass fraction] 5.8 % 3.8-5.6 [facility] Work Phone: Comment on above: Normal < 5.7 % Predi abetic 5.7 - 6.4 % Diabetic >or= 6.5 % Please note range changes. Basophil percentageon 2021 Basophil percentage < 0.9 mg/dL 0.70-1.30 [facility] Work Phone: No Panel Informationon 05-18 Bedside Estimated GFR (eGFR) > 60.0000 mL/min >60 [facility] Work Phone: Absolute lymphocyte counton 12-01-2021 Lymphocytes Auto (Unsp spec) [#/Vol] 2.72 10*3/uL 0.83-4.51 [facility] Work Phone: Basophil percentageon 2021 Basophils/100 WBC (Bld) 0.5 % 0-1 [facility] Work Phone: [phone] Bilirubin [Mass/Vol] 0.30 mg/dL 0.20-1.00 [facility] Work Phone: Comment on above: For patients on eltr ombopag therapy, use of [place] TBIL is not recommended. Chloride [Moles/Vol] 103 mmol/L 98-107 [facility] Work Phone: [phone] Cholesterol [Mass/Vol] 199 mg/dL <200 [facility] Work Phone: Comment on above: <200 mg/dL Desirable 200-240 mg/dL Borderline >240 mg/dL High Risk Eosinophils/100 WBC (Bld) 3.9 % 0-5 [facility] Work Phone: Glucose [Mass/Vol] 129 mg/dL 74-106 [facility] Work Phone: Comment on above: Fasting Glucose resu lt greater than or equal to 126 mg/dL suggests DIABETES MELLITUS per A.D.A. criteria. Neutrophils (Bld) [#/Vol] 4.3 10*3/uL 2.0-7.7 [facility] Work Phone: [phone] Neutrophils/100 WBC (Bld) 53.6 % 47-70 [facility] Work Phone: [phone] Potassium [Moles/Vol] 4.1 mmol/L 3.5-5.1 [facility] Work Phone: [phone] Protein [Mass/Vol] 7.5 g/dL 6.4-8.2 [facility] Work Phone: [phone] Sodium [Moles/Vol] 138 mmol/L 136-145 [facility] Work Phone: [phone] Triglyceride [Mass/Vol] 291 mg/dL <199 [facility] Work Phone: [phone] Comment on above: The drugs N-Acetylcy steine and Metamizole may falsely depress this assay.Serum Triglycerides Reference Interval Normal <150 mg/dL Borderline high 150 - 199 mg/dL High 200 - 499 mg/dL Very High > or = 500 mg/dL WBC (Bld) [#/Vol] 8.0 10*3/uL 4.4-11.0 [facility] Work Phone: Blood erythrocytes count (nu mber/volume)on 12-01-2021 RBC (Bld) [#/Vol] 5.13 10*6/uL 4.6-6.2 [facility]: Blood hemoglobin measurement (mass/volume)on 12-01-2021 Hemoglobin (Bld) [Mass/Vol] 17.7 g/dL 13.0-16.5 [facility] Work Phone: Blood lymphocytes/100 leukoc yteson 12-01-2021 Lymphocytes/100 WBC (Bld) 33.9 % 19-41 [facility] Work Phone: Blood monocytes/100 leukocyt eson 12-01-2021 Monocytes/100 WBC (Bld) 7.7 % 0-10 [facility] Work Phone: Blood platelet mean volumeon 12-01-2021 Platelet mean volume (Bld) [Entitic vol] 9.9 fL 6.2-12.0 [facility] Work Phone: Determination of erythrocyte mean corpuscular volume (MCV)on 12-01-2021 MCV (RBC) [Entitic vol] 97.1 fL 80-94 [facility] Work Phone: Hematocrit Auto (Bld) [Volum e fraction]on 12-01-2021 Hematocrit (Bld) [Volume fraction] 49.8 % 40-54 [facility] Work Phone: Laboratory - Chemistry and C hemistry - challengeon 12-01-2021 ALP [Catalytic activity/Vol] 61 U/L 45-117 [facility] Work Phone: ALT [Catalytic activity/Vol] 84 U/L 16-61 [facility] Work Phone: CO2 [Moles/Vol] 29.0 mmol/L 21.0-32.0 [facility] Work Phone: Free T4 [Mass/Vol] 0.83 ng/dL 0.76-1.46 [facility] Work Phone: [phone] Globulin (S) [Mass/Vol] 3.5 g/dL 2.2-4.2 [facility] Work Phone: [phone] Urea nitrogen/Creatinine [Mass ratio] 18.6 mg/mg 10-20 [facility] Work Phone: [phone] Laboratory - Hematology and Cell countson 12-01-2021 Erythrocyte distribution width (RBC) [Entitic vol] 43.3 fL 35.1-43.9 [facility] Work Phone: [phone] Erythrocyte distribution width (RBC) [Ratio] 12.0 % 11.6-14.6 [facility] Work Phone: [phone] Immature granulocytes/100 WBC (Bld) 0.400 % 0.0-0.9 [facility] Work Phone: [phone] Comment on above: IG% - Immature Granu locytes (promyelocytes, myelocytes and metamyelocytes) > 1% indicates that a LEFT SHIFT is Present. MCH (RBC) [Entitic mass] 34.5 pg 27.0-32.0 [facility] Work Phone: [phone] Nucleated RBC/100 WBC (Bld) [Ratio] 0 % 0-5 [facility] Work Phone: [phone] MCHC Auto (RBC) [Mass/Vol]on 12-01-2021 MCHC (RBC) [Mass/Vol] 35.5 g/dL 32-36 [facility] Work Phone: [phone] No Panel Informationon 12-01 Estimated GFR (MDRD) Amer 111 mL/min >60 [facility] Work Phone: [phone] Comment on above: GFR Calc Estimated GFR (MDRD) Non-Af Amer 91 mL/min >60 [facility] Work Phone: [phone] Comment on above: Non- GFR Calc Free Triiodothyronine (T3) pg/dL 2.8 pg/mL 2.18-3.98 [facility] Work Phone: [phone] Prostate Specific Antigen Screen 0.42 ng/mL 0.00-4.00 [facility] Work Phone: Comment on above: This test was perfor med using the TPSA assay method [facility]. Values obtained with differentassay methods cannot be used interchangably.When changing PSA assays in the course of monitoring apatient, additional sequential testing should be carriedout to confirm baseline values. Thyroid Stimulating Hormone (TSH) 1.68 uIU/mL 0.358-3.74 [facility] Work Phone: Vitamin D 25-Hydroxy 18.9 ng/mL [facility] Work Phone: Comment on above: Vitamin D 25(OH) Sta tus Range Deficiency <20 ng/mL (50nmol/L) Insufficiency 20 - 30 ng/mL (50 - 75 nmol/L) Sufficiency 30 - 100 ng/mL (75 - 250 nmol/L) Toxicity >100 ng/mL (>250 nmol/L) Platelets bldon 12-01-2021 Platelets (Bld) [#/Vol] 251 10*3/uL 150-450 [facility] Work Phone: Serum or plasma albumin [place]lando urement (mass/volume)on 12-01-2021 Albumin [Mass/Vol] 4.0 g/dL 3.2-5.0 [facility] Work Phone: Serum or plasma albumin/glob ulin mass ratioon 12-01-2021 Albumin/Globulin [Mass ratio] 1.1 {ratio} 0.9-2.4 [facility] Work Phone: [phone] Serum or plasma calcium [place] urement (mass/volume)on 12-01-2021 Calcium [Mass/Vol] 9.4 mg/dL 8.5-10.1 [facility] Work Phone: Serum or plasma cholesterol in HDL measurement (mass/volume)on 12-01-2021 Cholesterol in HDL [Mass/Vol] 37 mg/dL >40 [facility] Work Phone: Comment on above: The drugs N-Acetylcy steine and Metamizole may falsely depress this assay. Reference Range HDL <40 mg/dL Low HDL Cholesterol HDL >or= 60 mg/dL High HDL Cholesterol Serum or plasma cholesterol in VLDL measurement (mass/volume)on 12-01-2021 Cholesterol in VLDL [Mass/Vol] 58 mg/dL 5-40 [facility] Work Phone: Serum or plasma creatinine m easurement (mass/volume)on 12-01-2021 Creatinine [Mass/Vol] 0.92 mg/dL 0.70-1.30 [facility] Work Phone: Comment on above: The validity of the calculated GFR & GFRAA in patients over 70 years has not been determined. Clinical correlation is essential. Serum or plasma low density lipoprotein (LDL) cholesterol measurement (mass/volume)on 12-01-2021 Cholesterol in LDL [Mass/Vol] 104 mg/dL 0-130 [facility] Work Phone: Serum or plasma urea nitroge n measurement (mass/volume)on 12-01-2021 Urea nitrogen [Mass/Vol] 17 mg/dL 7-18 [facility] Work Phone: Thin prep Papanicolaou smear with manual screeningon 12-01-2021 Thin prep Papanicolaou smear with manual screening 35 U/L 15-37 [facility] Work Phone: Thin prep Papanicolaou smear with manual screening 6 5-15 [facility] Work Phone: Whole blood hemoglobin A1c/t otal hemoglobin ratio (mass fraction)on 12-01-2021 HbA1c (Bld) [Mass fraction] 6.4 % 3.8-5.6 [facility] Work Phone: Comment on above: Normal < 5.7 % Predi abetic 5.7 - 6.4 % Diabetic >or= 6.5 % Please note range changes. Progress Noteson 04-18-2021 [employer] Interface Message Text Rheumatology Note Recall: Iftikhar Fleming is a 55 year old male with PsO without PsA; remote back surgery for spinal stenosis Gabapentin- AE fogginess HPI: Over 1 month of bad pains: Shoulder pains most bothersome now. Can move shoulders a lot but not super painful but 90 deg abd. Flexion not as painful . Neck movement noisy but no arm pain w neck motion. Minimal movement of pain shooting into arms. Using no pillow at night bc of sleep discomfort. Mostly in front. Some trouble sleeping. No numbness/tingling in arms. Only in legs, some post-surgical but has progressed to both legs. Gabapentin- too much AE, brain fogginess. celexa stopping and some of the AE stopped too. Hasn't seen NSG in a few years. [place] [employer] retired. Had dry needling which did help in the past. Was not able to do PT or aquatic therapy bc of covid. 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 30 Tablet 0 * metoprolol (LOPRESSOR) 50 MG tablet Take 50 mg by mouth 2 times daily. * fenofibrate (TRICOR) 54 MG tablet Take 54 mg by mouth 2 times daily. * hydrochlorothiazide (HYDRODIURIL) 25 MG tablet Take 25 mg by mouth daily. * losartan (COZAAR) 25 MG tablet No current facility-administered medications for this visit. ROS: all ten systems are reviewed and negative except for pertinent positive and negative stated in the HPI Physical Exam Vitals reviewed. HENT: Head: Normocephalic and atraumatic. Eyes: Conjunctiva/sclera: Conjunctivae normal. Pupils: Pupils are equal, round, and reactive to light. Pulmonary: Effort: Pulmonary effort is normal. Musculoskeletal: Right shoulder: Tenderness present. No swelling, deformity or bony tenderness. Normal range of motion. Left shoulder: Tenderness present. No swelling, deformity or bony tenderness. Normal range of motion. Right upper arm: Normal. Left upper arm: Normal. Right elbow: Normal. No swelling. Left elbow: Normal. No swelling. Right wrist: Normal. No swelling. Left wrist: Normal. No swelling. Right hand: No swelling. Left hand: No swelling. Cervical back: Tenderness present. No torticollis or bony tenderness. Decreased range of motion. Thoracic back: Normal. Comments: hawkin's + john and jobes+ john Skin: General: Skin is warm and dry. Findings: Rash present. Comments: PsO erythematous plaques on scalp and john elbows Neurological: Mental Status: He is alert and oriented to person, place, and time. Sensory: Sensation is intact. Motor: Motor function is intact. Gait: Gait is intact. Deep Tendon Reflexes: Reflex Scores: Bicep reflexes are 1+ on the right side and 1+ on the left side. Brachioradialis reflexes are 1+ on the right side and 1+ on the left side. Comments: Ambulating w cane Psychiatric: Mood and Affect: Mood and affect normal. Cognition and Memory: Memory normal. Judgment: Judgment normal. Assessment/Plan: Iftikhar Fleming is a 55 year old male w long standing plaque psoriasis without inflammatory joint pains, spinal stenosis with LE paresthesias after lumbar decompression with Neck and shoulder pain #PsO- using topicals sparingly, active, moderate scale today #spinal stenosis- encourage NSG to establish #shoulder and neck pain; favor shoulder rtc tendonitis as etiology but likely spinal stenosis likely in neck as well, limited ROM, neuro ok today -start aquatic therapy -avoiding nsaids bc of fatty liver -encouarge spine clinic, PMR for eval pain mgmt -trial zanaflex 1-2mg at hs, discussed risks -discussed lyrica, hold for now, had reaction to crissy and wants to avoid -reviewed labs from [facility], bmp and cbc ok rtc in 3-6 months or prn Anastasiia Haywood MD Normal [facility] [employer] Interface Message Text Patient at risk for falls:No Falls Risk protocol implemented: No Normal [facility] Addendum Noteon 03-21-2021 [employer] Interface Message Text Addended by: ANASTASIIA HAYWOOD on: 03/21/2021 04:24 PM Modules accepted: Orders Normal [facility] Telephone Encounteron 2020 [employer] Interface Message Text Faxed in [facility] lab orders and cc patient mychart Normal [facility] Telephone Encounteron 2020 [employer] Interface Message Text From: Iftikhar Fleming To: Anastasiia Haywood MD Sent: 03/19/2021 10:08 AM EDT Subject: Non-Urgent Medical Question Hello Dr. Miguel Angel, i have an appointment with you next Month on the but am having severe pains in my upper arms near shoulders. I can't raise my arms up without pain. difficulty sleeping. My last visit with you was just before covid hit and I never got the shoulder x-rays you ordered. I was wondering if you could give me another order so i can go to [facility] and have them x-rayed prior to my visit with you next month, Thanks so much, Iftikhar Fleming Normal [facility] Vital Signs Date Time Vital Sign Value Performing Clinician Facility 07-07-2024 09:35-0400 Body height 177.8 cm Rachell Stoll Jr., PA-C Work Phone: [facility] 07-07-2024 09:35-0400 Body mass index (BMI) [Ratio] 27.98 kg/m2 Rachell Stoll Jr., PA-C Work Phone: [facility] 07-07-2024 09:35-0400 Body temperature 97.7 [degF] Rachell Stoll Jr., PA-C Work Phone: [facility] 07-07-2024 09:35-0400 Body weight 88.45 kg Rachell Stoll Jr., PA-C Work Phone: [facility] 07-07-2024 09:35-0400 Heart rate 66 /min Rachell Stoll Jr., PA-C Work Phone: [facility] 07-07-2024 09:35-0400 SaO2% (BldA) [Mass fraction] 96 % Rachell Stoll Jr., PA-C Work Phone: [facility] 03-17-2024 10:43-0400 Body height 179.1 cm Jose JAFFE Work Phone: [facility] 03-17-2024 10:43-0400 Body mass index (BMI) [Ratio] 25.75 kg/m2 Jose JAFFE Work Phone: [facility] 03-17-2024 10:43-0400 Body temperature 97 [degF] Jose PLASENCIA Work Phone: [facility] 03-17-2024 10:43-0400 Body weight 82.56 kg Jose JAFFE Work Phone: [facility] 03-17-2024 10:43-0400 Heart rate 66 /min Jose PLASENCIA Work Phone: [facility] 03-17-2024 10:43-0400 SaO2% (BldA) [Mass fraction] 98 % Jose JAFFE Work Phone: [facility] 01-29-2024 10:20-0400 Body height 179.1 cm Jose JAFFE Work Phone: [facility] 01-29-2024 10:20-0400 Body mass index (BMI) [Ratio] 25.46 kg/m2 Jose JAFFE Work Phone: [facility] 01-29-2024 10:20-0400 Body temperature 97.2 [degF] Jose PLASENCIA Work Phone: [facility] 01-29-2024 10:20-0400 Body weight 81.65 kg Jose JAFFE Work Phone: [facility] 01-29-2024 10:20-0400 Heart rate 69 /min Jose JAFFE Work Phone: [facility] 01-29-2024 10:20-0400 SaO2% (BldA) [Mass fraction] 97 % Jose JAFFE Work Phone: [facility] 01-01-2024 10:57-0400 Body height 179.1 cm Rachell Stoll Jr., [facility] Work Phone: [facility] 01-01-2024 10:57-0400 Body mass index (BMI) [Ratio] 25.46 kg/m2 Rachell Stoll Jr., PAC Work Phone: [facility] 01-01-2024 10:57-0400 Body temperature 97.39 [degF] Rachell Stoll Jr., PAC Work Phone: [facility] 01-01-2024 10:57-0400 Body weight 81.65 kg Rachell Stoll Jr., PAC Work Phone: [facility] 01-01-2024 10:57-0400 Heart rate 70 /min Rachell Stoll Jr., PAC Work Phone: [facility] 01-01-2024 10:57-0400 SaO2% (BldA) [Mass fraction] 95 % Rachell Stoll Jr., PAC Work Phone: [facility] 12-30-2023 12:28-0400 Diastolic blood pressure 90 mm[Hg] Dr. Mary Dumont Work Phone: [facility] 12-30-2023 12:28-0400 Heart rate 72 /min Dr. Mary Dumont Work Phone: [facility] 12-30-2023 12:28-0400 Respiratory rate 16 /min Dr. Mary Dumont Work Phone: [facility] 12-30-2023 12:28-0400 SaO2% (BldA) [Mass fraction] 100 % Dr. Mary Dumont Work Phone: [facility] 12-30-2023 12:28-0400 Systolic blood pressure 178 mm[Hg] Dr. Mary Dumont Work Phone: [facility] 12-30-2023 11:05-0400 Body height 177.[address] Mary Dumont Work Phone: [facility] 12-30-2023 11:05-0400 Body mass index (BMI) [Ratio] 25.5 kg/m2 Dr. Mary Dumont Work Phone: [facility] 12-30-2023 11:05-0400 Body temperature 97.1 [degF] Dr. Mary Dumont Work Phone: [facility] 12-30-2023 11:05-0400 Body weight 80.[address] Mary Dumont Work Phone: [facility] 12-25-2023 09:41-0400 Body mass index (BMI) [Ratio] 25.5 kg/m2 Dr. Mary Dumont Work Phone: [facility] 12-25-2023 09:41-0400 Body temperature 98 [degF] Dr. Mary Dumont Work Phone: [facility] 12-25-2023 09:41-0400 Body weight 80.[address] Mary Dumont Work Phone: [facility] 12-25-2023 09:41-0400 Diastolic blood pressure 99 mm[Hg] Dr. Mary Dumont Work Phone: [facility] 12-25-2023 09:41-0400 Heart rate 61 /min Dr. Mary Dumont Work Phone: [facility] 12-25-2023 09:41-0400 Respiratory rate 14 /min Dr. Mary Dumont Work Phone: [facility] 12-25-2023 09:41-0400 SaO2% (BldA) [Mass fraction] 97 % Dr. Mary Dumont Work Phone: [facility] 12-25-2023 09:41-0400 Systolic blood pressure 166 mm[Hg] Dr. Mary Dumont Work Phone: [facility] 12-23-2023 08:22-0400 Body temperature 98.4 [degF] Dr. Mary Dumont Work Phone: [facility] 12-23-2023 08:22-0400 Body weight 81.[address] Mary Dumont Work Phone: [facility] 12-23-2023 08:22-0400 Diastolic blood pressure 90 mm[Hg] Dr. Mary Dumont Work Phone: [facility] 12-23-2023 08:22-0400 Heart rate 76 /min Dr. Mary Dumont Work Phone: [facility] 12-23-2023 08:22-0400 Respiratory rate 14 /min Dr. Mary Dumont Work Phone: [facility] 12-23-2023 08:22-0400 SaO2% (BldA) [Mass fraction] 98 % Dr. Mary Dumont Work Phone: [facility] 12-23-2023 08:22-0400 Systolic blood pressure 145 mm[Hg] Dr. Mary Dumont Work Phone: [facility] 12-20-2023 10:47-0400 Diastolic blood pressure 81 mm[Hg] LD Howard MD Work Phone: [facility] 12-20-2023 10:47-0400 Systolic blood pressure 189 mm[Hg] LD Howard MD Work Phone: [facility] 12-20-2023 07:21-0400 Body temperature 99 [degF] LD Howard MD Work Phone: [facility] 12-20-2023 07:21-0400 Heart rate 74 /min LD Howard MD Work Phone: [facility] 12-20-2023 07:21-0400 Respiratory rate 16 /min LD Howard MD Work Phone: [facility] 12-20-2023 07:21-0400 SaO2% (BldA) [Mass fraction] 97 % LD Howard MD Work Phone: [facility] 12-19-2023 12:08-0400 Body height 179.1 cm LD Howard MD Work Phone: [facility] 12-19-2023 12:08-0400 Body mass index (BMI) [Ratio] 25.48 kg/m2 LD Howard MD Work Phone: [facility] 12-19-2023 12:08-0400 Body weight 81.69 kg LD Howard MD Work Phone: [facility] 12-16-2023 15:20-0400 Body temperature 97.7 [degF] Dr. Mary Dumont Work Phone: [facility] 12-16-2023 15:20-0400 Diastolic blood pressure 87 mm[Hg] Dr. Mary Dumont Work Phone: [facility] 12-16-2023 15:20-0400 Heart rate 64 /min Dr. Mary Dumont Work Phone: [facility] 12-16-2023 15:20-0400 Respiratory rate 16 /min Dr. Mary Dumont Work Phone: [facility] 12-16-2023 15:20-0400 SaO2% (BldA) [Mass fraction] 97 % Dr. Mary Dumont Work Phone: [facility] 12-16-2023 15:20-0400 Systolic blood pressure 148 mm[Hg] Dr. Mary Dumont Work Phone: [facility] 12-16-2023 15:02-0400 Body mass index (BMI) [Ratio] 26.5 kg/m2 Dr. Mary Dumont Work Phone: [facility] 12-16-2023 15:02-0400 Body weight 83.[address] Mary Dumont Work Phone: [facility] 12-05-2023 10:19-0500 Body height 179.1 cm Kaylie Yi STABLE ATTENDANT-SALES RECORD CLERK Work Phone: [facility] 12-05-2023 10:19-0500 Body mass index (BMI) [Ratio] 26.71 kg/m2 Kayliemartha Burker STABLE ATTENDANT-SALES RECORD CLERK Work Phone: [phone] [place] [address] 12-05-2023 10:19-0500 Body temperature 97.5 [degF] Kaylie uBrker STABLE ATTENDANT-SALES RECORD CLERK Work Phone: [phone] [address] 12-05-2023 10:19-0500 Body weight 85.64 kg Kayliemartha Burker STABLE ATTENDANT-SALES RECORD CLERK Work Phone: [phone] [place] [address] 12-05-2023 10:19-0500 Diastolic blood pressure 80 mm[Hg] Kaylie Burker STABLE ATTENDANT-SALES RECORD CLERK Work Phone: [facility] 12-05-2023 10:19-0500 Heart rate 56 /min Kayliemartha Burker STABLE ATTENDANT-SALES RECORD CLERK Work Phone: [facility] 12-05-2023 10:19-0500 Respiratory rate 18 /min Kaylie Burker STABLE ATTENDANT-SALES RECORD CLERK Work Phone: [facility] 12-05-2023 10:19-0500 SaO2% (BldA) [Mass fraction] 98 % Kayliemartha Burker STABLE ATTENDANT-SALES RECORD CLERK Work Phone: [facility] 12-05-2023 10:19-0500 Systolic blood pressure 136 mm[Hg] Kaylie Burker STABLE ATTENDANT-SALES RECORD CLERK Work Phone: [phone] [place] [address] 11-21-2023 14:52-0500 Body mass index (BMI) [Ratio] 26.4 kg/m2 Dr. Mary Dumont Work Phone: [facility] 11-21-2023 14:52-0500 Body temperature 97.4 [degF] Dr. Mary Dumont Work Phone: [facility] 11-21-2023 14:52-0500 Body weight 83.[address] Mary Dumont Work Phone: [facility] 11-21-2023 14:52-0500 Diastolic blood pressure 84 mm[Hg] Dr. Mary Dumont Work Phone: [facility] 11-21-2023 14:52-0500 Heart rate 67 /min Dr. Mary Dumont Work Phone: [facility] 11-21-2023 14:52-0500 Respiratory rate 18 /min Dr. Mary Dumont Work Phone: [facility] 11-21-2023 14:52-0500 SaO2% (BldA) [Mass fraction] 96 % Dr. Mary Dumont Work Phone: [facility] 11-21-2023 14:52-0500 Systolic blood pressure 154 mm[Hg] Dr. Mary Dumont Work Phone: [facility] 11-12-2023 08:51-0500 Body height 177.[address] Mary Dumont Work Phone: [facility] 11-12-2023 08:51-0500 Body mass index (BMI) [Ratio] 26.5 kg/m2 Dr. Mary Dumont Work Phone: [facility] 11-12-2023 08:51-0500 Body weight 83.[address] Mayr Dumont Work Phone: [facility] 11-12-2023 08:51-0500 Diastolic blood pressure 93 mm[Hg] Dr. Mary Dumont Work Phone: [facility] 11-12-2023 08:51-0500 Heart rate 57 /min Dr. Mary Dumont Work Phone: [facility] 11-12-2023 08:51-0500 Respiratory rate 16 /min Dr. Mary Dumont Work Phone: [facility] 11-12-2023 08:51-0500 Systolic blood pressure 148 mm[Hg] Dr. Mary Dumont Work Phone: [facility] 11-11-2023 13:03-0500 Body mass index (BMI) [Ratio] 26.6 kg/m2 Dr. Mary Dumont Work Phone: [facility] 11-11-2023 13:03-0500 Body temperature 98.3 [degF] Dr. Mary Dumont Work Phone: [facility] 11-11-2023 13:03-0500 Body weight 84.[address] Mary Dumont Work Phone: [facility] 11-11-2023 13:03-0500 Diastolic blood pressure 85 mm[Hg] Dr. Mary Dumont Work Phone: [facility] 11-11-2023 13:03-0500 Heart rate 62 /min Dr. Mary Dumont Work Phone: [facility] 11-11-2023 13:03-0500 Respiratory rate 16 /min Dr. Mary Dumont Work Phone: [facility] 11-11-2023 13:03-0500 SaO2% (BldA) [Mass fraction] 95 % Dr. Mary Dumont Work Phone: [facility] 11-11-2023 13:03-0500 Systolic blood pressure 132 mm[Hg] Dr. Mary Dumont Work Phone: [facility] 10-24-2023 07:57-0500 Body height 177.[address] Mary Dumont Work Phone: [facility] 10-24-2023 07:57-0500 Body mass index (BMI) [Ratio] 26.1 kg/m2 Dr. Mary Dumont Work Phone: [facility] 10-24-2023 07:57-0500 Body temperature 97.4 [degF] Dr. Mary Dumont Work Phone: [facility] 10-24-2023 07:57-0500 Body weight 82.[address] Mary Dumont Work Phone: [facility] 10-24-2023 07:57-0500 Diastolic blood pressure 86 mm[Hg] Dr. Mary Dumont Work Phone: [facility] 10-24-2023 07:57-0500 Heart rate 67 /min Dr. Mary Dumont Work Phone: [facility] 10-24-2023 07:57-0500 Respiratory rate 16 /min Dr. Mary Dumont Work Phone: [facility] 10-24-2023 07:57-0500 SaO2% (BldA) [Mass fraction] 98 % Dr. Mary Dumont Work Phone: [facility] 10-24-2023 07:57-0500 Systolic blood pressure 142 mm[Hg] Dr. Mary Dumont Work Phone: [facility] 10-21-2023 15:00-0500 Body temperature 96.6 [degF] Dr. Mary Dumont Work Phone: [facility] 10-21-2023 15:00-0500 Diastolic blood pressure 77 mm[Hg] Dr. Mary Dumont Work Phone: [facility] 10-21-2023 15:00-0500 Heart rate 64 /min Dr. Mary Dumont Work Phone: [facility] 10-21-2023 15:00-0500 Respiratory rate 16 /min Dr. Mary Dumont Work Phone: [facility] 10-21-2023 15:00-0500 SaO2% (BldA) [Mass fraction] 99 % Dr. Mary Dumont Work Phone: [facility] 10-21-2023 15:00-0500 Systolic blood pressure 141 mm[Hg] Dr. Mary Dumont Work Phone: [facility] 10-21-2023 14:03-0500 Body mass index (BMI) [Ratio] 27 kg/m2 Dr. Mary Dumont Work Phone: [facility] 10-21-2023 14:03-0500 Body temperature 98.1 [degF] Dr. Mary Dumont Work Phone: [facility] 10-21-2023 14:03-0500 Body weight 85.[address] Mary Dumont Work Phone: [facility] 10-21-2023 14:03-0500 Diastolic blood pressure 85 mm[Hg] Dr. Mary Dumont Work Phone: [facility] 10-21-2023 14:03-0500 Heart rate 58 /min Dr. Mary Dumont Work Phone: [facility] 10-21-2023 14:03-0500 Respiratory rate 18 /min Dr. Mary Dumont Work Phone: [facility] 10-21-2023 14:03-0500 SaO2% (BldA) [Mass fraction] 97 % Dr. Mary Dumont Work Phone: [facility] 10-21-2023 14:03-0500 Systolic blood pressure 137 mm[Hg] Dr. Mary Dumont Work Phone: [facility] 10-14-2023 08:03-0500 Body mass index (BMI) [Ratio] 26.8 kg/m2 Dr. Mary Dumont Work Phone: [facility] 10-14-2023 08:03-0500 Body weight 84.[address] Mary Dumont Work Phone: [facility] 10-14-2023 08:03-0500 Diastolic blood pressure 89 mm[Hg] Dr. Mary Dumont Work Phone: [facility] 10-14-2023 08:03-0500 Heart rate 63 /min Dr. Mary Dumont Work Phone: [facility] 10-14-2023 08:03-0500 SaO2% (BldA) [Mass fraction] 96 % Dr. Mary Dumont Work Phone: [facility] 10-14-2023 08:03-0500 Systolic blood pressure 148 mm[Hg] Dr. Mary Dumont Work Phone: [facility] 10-02-2023 10:53-0500 Body height 177.8 cm Jose PLASENCIA Work Phone: [facility] 10-02-2023 10:53-0500 Body temperature 96.69 [degF] Jose Mccrary [facility] Work Phone: [facility] 10-02-2023 10:53-0500 Heart rate 69 /min Jose Mccrary [facility] Work Phone: [facility] 10-02-2023 10:53-0500 SaO2% (BldA) [Mass fraction] 97 % Jose Mccrary [facility] Work Phone: [facility] 09-11-2023 11:25-0500 Body height 177.[address] Mary Dumont Work Phone: [facility] 09-11-2023 11:25-0500 Body temperature 98.2 [degF] Dr. Mary Dumont Work Phone: [facility] 09-11-2023 11:25-0500 Diastolic blood pressure 84 mm[Hg] Dr. Mary Dumont Work Phone: [facility] 09-11-2023 11:25-0500 Heart rate 66 /min Dr. Mary Dumont Work Phone: [facility] 09-11-2023 11:25-0500 SaO2% (BldA) [Mass fraction] 96 % Dr. Mary Dumont Work Phone: [facility] 09-11-2023 11:25-0500 Systolic blood pressure 148 mm[Hg] Dr. Mary Dumont Work Phone: [facility] 08-26-2023 08:24-0500 Body mass index (BMI) [Ratio] 27 kg/m2 Dr. Mary Dumont Work Phone: [facility] 08-26-2023 08:24-0500 Body temperature 98.2 [degF] Dr. Mary Dumont Work Phone: [facility] 08-26-2023 08:24-0500 Body weight 85.[address] Mary Dumont Work Phone: [facility] 08-26-2023 08:24-0500 Diastolic blood pressure 80 mm[Hg] Dr. Mary Dumont Work Phone: [facility] 08-26-2023 08:24-0500 Heart rate 71 /min Dr. Mary Dumont Work Phone: [facility] 08-26-2023 08:24-0500 Respiratory rate 17 /min Dr. Mary Dumont Work Phone: [facility] 08-26-2023 08:24-0500 SaO2% (BldA) [Mass fraction] 97 % Dr. Mary Dumont Work Phone: [facility] 08-26-2023 08:24-0500 Systolic blood pressure 138 mm[Hg] Dr. Mary Dumont Work Phone: [facility] 08-19-2023 14:55-0500 Body temperature 97 [degF] Dr. Mary Dumont Work Phone: [facility] 08-19-2023 14:55-0500 Diastolic blood pressure 87 mm[Hg] Dr. Mary Dumont Work Phone: [facility] 08-19-2023 14:55-0500 Heart rate 67 /min Dr. Mary Dumont Work Phone: [facility] 08-19-2023 14:55-0500 Respiratory rate 16 /min Dr. Mary Dumont Work Phone: [facility] 08-19-2023 14:55-0500 Systolic blood pressure 148 mm[Hg] Dr. Mary Dumont Work Phone: [facility] 08-19-2023 14:44-0500 Body mass index (BMI) [Ratio] 26.5 kg/m2 Dr. Mary Dumont Work Phone: [facility] 08-19-2023 14:44-0500 Body weight 83.[address] Mary Dumont Work Phone: [facility] 07-25-2023 12:06-0400 Body mass index (BMI) [Ratio] 26.6 kg/m2 Dr. Mary Dumont Work Phone: [facility] 07-25-2023 12:06-0400 Body temperature 97.9 [degF] Dr. Mary Dumont Work Phone: [facility] 07-25-2023 12:06-0400 Body weight 84.[address] Mary Dumont Work Phone: [facility] 07-25-2023 12:06-0400 Diastolic blood pressure 77 mm[Hg] Dr. Mary Dumont Work Phone: [facility] 07-25-2023 12:06-0400 Heart rate 67 /min Dr. Mary Dumont Work Phone: [facility] 07-25-2023 12:06-0400 Respiratory rate 16 /min Dr. Mary Dumont Work Phone: [facility] 07-25-2023 12:06-0400 SaO2% (BldA) [Mass fraction] 96 % Dr. Mary Dumont Work Phone: [facility] 07-25-2023 12:06-0400 Systolic blood pressure 137 mm[Hg] Dr. Mary Dumont Work Phone: [facility] 07-22-2023 14:46-0400 SaO2% (BldA) [Mass fraction] 97 % Dr. Mary Dumont Work Phone: [facility] 06-24-2023 14:41-0400 Body mass index (BMI) [Ratio] 26.5 kg/m2 Dr. Mary Dumont Work Phone: [facility] 06-24-2023 14:41-0400 Body temperature 98 [degF] Dr. Mary Dumont Work Phone: [facility] 06-24-2023 14:41-0400 Body weight 83.[address] Mary Dumont Work Phone: [facility] 06-24-2023 14:41-0400 Diastolic blood pressure 86 mm[Hg] Dr. Mary Dumont Work Phone: [facility] 06-24-2023 14:41-0400 Heart rate 57 /min Dr. Mary Dumont Work Phone: [facility] 06-24-2023 14:41-0400 Respiratory rate 14 /min Dr. Mary Dumont Work Phone: [facility] 06-24-2023 14:41-0400 SaO2% (BldA) [Mass fraction] 100 % Dr. Mary Dumont Work Phone: [facility] 06-24-2023 14:41-0400 Systolic blood pressure 135 mm[Hg] Dr. Mary Dumont Work Phone: [facility] 06-11-2023 14:33-0400 Body temperature 97.1 [degF] Dr. Mary Dumont Work Phone: [facility] 06-11-2023 14:33-0400 Diastolic blood pressure 80 mm[Hg] Dr. Mary Dumont Work Phone: [facility] 06-11-2023 14:33-0400 Heart rate 62 /min Dr. Mary Dumont Work Phone: [facility] 06-11-2023 14:33-0400 Respiratory rate 16 /min Dr. Mary Dumont Work Phone: [facility] 06-11-2023 14:33-0400 SaO2% (BldA) [Mass fraction] 97 % Dr. Mary Dumont Work Phone: [facility] 06-11-2023 14:33-0400 Systolic blood pressure 143 mm[Hg] Dr. Mary Dumont Work Phone: [facility] 06-11-2023 14:25-0400 Body height 177.[address] Mary Dumont Work Phone: [facility] 06-11-2023 14:25-0400 Body mass index (BMI) [Ratio] 26.5 kg/m2 Dr. Mary Dumont Work Phone: [facility] 06-11-2023 14:25-0400 Body weight 83.[address] Mary Dumont Work Phone: [facility] 06-04-2023 10:01-0400 Body mass index (BMI) [Ratio] 26.7 kg/m2 Dr. Mary Dumont Work Phone: [facility] 06-04-2023 10:01-0400 Body temperature 97.8 [degF] Dr. Mary Dumont Work Phone: [facility] 06-04-2023 10:01-0400 Body weight 84.[address] Mary Dumont Work Phone: [facility] 06-04-2023 10:01-0400 Diastolic blood pressure 70 mm[Hg] Dr. Mary Dumont Work Phone: [facility] 06-04-2023 10:01-0400 Heart rate 66 /min Dr. Mary Dumont Work Phone: [facility] 06-04-2023 10:01-0400 Respiratory rate 17 /min Dr. Mary Dumont Work Phone: [facility] 06-04-2023 10:01-0400 SaO2% (BldA) [Mass fraction] 97 % Dr. Mary Dumont Work Phone: [facility] 06-04-2023 10:01-0400 Systolic blood pressure 130 mm[Hg] Dr. Mary Dumont Work Phone: [facility] 05-30-2023 08:41-0400 Body height 177.8 cm Jose JAFFE Work Phone: [facility] 05-30-2023 08:41-0400 Diastolic blood pressure 77 mm[Hg] Jose JAFFE Work Phone: [facility] 05-30-2023 08:41-0400 Heart rate 58 /min Jose JAFFE Work Phone: [facility] 05-30-2023 08:41-0400 Systolic blood pressure 167 mm[Hg] Jose PLASENCIABS Work Phone: [facility] 05-27-2023 14:29-0400 Diastolic blood pressure 81 mm[Hg] Dr. Mary Dumont Work Phone: [facility] 05-27-2023 14:29-0400 Systolic blood pressure 139 mm[Hg] Dr. Mary Dumont Work Phone: [facility] 05-27-2023 14:14-0400 Body height 177.[address] Mary Dumont Work Phone: [facility] 05-27-2023 14:14-0400 Body temperature 97.2 [degF] Dr. Mary Dumont Work Phone: [facility] 05-27-2023 14:14-0400 Heart rate 64 /min Dr. Mary Dumont Work Phone: [facility] 05-27-2023 14:14-0400 Respiratory rate 16 /min Dr. Mary Dumont Work Phone: [facility] 05-27-2023 14:14-0400 SaO2% (BldA) [Mass fraction] 95 % Dr. Mary Dumont Work Phone: [facility] 05-22-2023 07:43-0400 Body temperature 97 [degF] Dr. Mary Duomnt Work Phone: [facility] 05-22-2023 07:43-0400 Diastolic blood pressure 76 mm[Hg] Dr. Mary Dumont Work Phone: [facility] 05-22-2023 07:43-0400 Heart rate 50 /min Dr. Mary Dumont Work Phone: [facility] 05-22-2023 07:43-0400 Respiratory rate 16 /min Dr. Mary Dumont Work Phone: [facility] 05-22-2023 07:43-0400 SaO2% (BldA) [Mass fraction] 99 % Dr. Mary Dumont Work Phone: [facility] 05-22-2023 07:43-0400 Systolic blood pressure 112 mm[Hg] Dr. Mary Dumont Work Phone: [facility] 05-22-2023 05:54-0400 Body height 177.[address] Mary Dumont Work Phone: [facility] 05-22-2023 05:54-0400 Body mass index (BMI) [Ratio] 26.2 kg/m2 Dr. Mary Dumont Work Phone: [facility] 05-22-2023 05:54-0400 Body weight [address] Mary Dumont Work Phone: [facility] 05-13-2023 14:16-0400 Diastolic blood pressure 74 mm[Hg] Dr. Mary Dumont Work Phone: [facility] 05-13-2023 14:16-0400 Heart rate 55 /min Dr. Mary Dumont Work Phone: [facility] 05-13-2023 14:16-0400 Respiratory rate 16 /min Dr. Mary Dumont Work Phone: [facility] 05-13-2023 14:16-0400 Systolic blood pressure 125 mm[Hg] Dr. Mary Dumont Work Phone: [facility] 05-13-2023 14:05-0400 SaO2% (BldA) [Mass fraction] 97 % Dr. Mary Dumont Work Phone: [facility] 05-09-2023 09:53-0400 Body weight 83.[address] Mary Dumont Work Phone: [facility] 05-09-2023 09:53-0400 Diastolic blood pressure 86 mm[Hg] Dr. Mary Dumont Work Phone: [facility] 05-09-2023 09:53-0400 Heart rate 56 /min Dr. Mary Dumont Work Phone: [facility] 05-09-2023 09:53-0400 Respiratory rate 18 /min Dr. Mary Dumont Work Phone: [facility] 05-09-2023 09:53-0400 Systolic blood pressure 148 mm[Hg] Dr. Mary Dumont Work Phone: [facility] 05-01-2023 10:08-0400 Diastolic blood pressure 75 mm[Hg] Dr. Mary Dumont Work Phone: [facility] 05-01-2023 10:08-0400 Heart rate 67 /min Dr. Mary Dumont Work Phone: [facility] 05-01-2023 10:08-0400 Respiratory rate 12 /min Dr. Mary Dumont Work Phone: [facility] 05-01-2023 10:08-0400 SaO2% (BldA) [Mass fraction] 98 % Dr. Mary Dumont Work Phone: [facility] 05-01-2023 10:08-0400 Systolic blood pressure 127 mm[Hg] Dr. Mary Dumont Work Phone: [facility] 05-01-2023 08:11-0400 Body height 177.[address] Mary Dumont Work Phone: [facility] 05-01-2023 08:11-0400 Body mass index (BMI) [Ratio] 26.5 kg/m2 Dr. Mary Dumont Work Phone: [facility] 05-01-2023 08:11-0400 Body temperature 97.6 [degF] Dr. Mary Dumont Work Phone: [facility] 05-01-2023 08:11-0400 Body weight 83.[address] Mary Dumont Work Phone: [facility] 04-29-2023 14:40-0400 Body temperature 97 [degF] Dr. Mary Dumont Work Phone: [facility] 04-29-2023 14:40-0400 Diastolic blood pressure 83 mm[Hg] Dr. Mary Dumont Work Phone: [facility] 04-29-2023 14:40-0400 Heart rate 59 /min Dr. Mary Dumont Work Phone: [facility] 04-29-2023 14:40-0400 Respiratory rate 14 /min Dr. Mary Dumont Work Phone: [facility] 04-29-2023 14:40-0400 SaO2% (BldA) [Mass fraction] 98 % Dr. Mary Dumont Work Phone: [facility] 04-29-2023 14:40-0400 Systolic blood pressure 148 mm[Hg] Dr. Mary Dumont Work Phone: [facility] 04-29-2023 14:29-0400 Body mass index (BMI) [Ratio] 26.5 kg/m2 Dr. Mary Dumont Work Phone: [facility] 04-29-2023 14:29-0400 Body weight 83.[address] Mary Dumont Work Phone: [facility] 04-19-2023 09:02-0400 Body mass index (BMI) [Ratio] 26.5 kg/m2 Dr. Mary Dumont Work Phone: [facility] 04-19-2023 09:02-0400 Body temperature 97.6 [degF] Dr. Mary Dumont Work Phone: [facility] 04-19-2023 09:02-0400 Body weight 83.[address] Mary Dumont Work Phone: [facility] 04-19-2023 09:02-0400 Diastolic blood pressure 86 mm[Hg] Dr. Mary Dumont Work Phone: [facility] 04-19-2023 09:02-0400 Heart rate 62 /min Dr. Mary Dumont Work Phone: [facility] 04-19-2023 09:02-0400 Respiratory rate 16 /min Dr. Mary Dumont Work Phone: [facility] 04-19-2023 09:02-0400 SaO2% (BldA) [Mass fraction] 97 % Dr. Mary Dumont Work Phone: [facility] 04-19-2023 09:02-0400 Systolic blood pressure 129 mm[Hg] Dr. Mary Dumont Work Phone: [facility] 03-28-2023 11:22-0400 Body height 177.[address] Mary Dumont Work Phone: [facility] 03-28-2023 11:22-0400 Body mass index (BMI) [Ratio] 26.6 kg/m2 Dr. Mary Dumont Work Phone: [facility] 03-28-2023 11:22-0400 Body temperature 98.2 [degF] Dr. Mary Dumont Work Phone: [facility] 03-28-2023 11:22-0400 Body weight 84.[address] Mary Dumont Work Phone: [facility] 03-28-2023 11:22-0400 Diastolic blood pressure 89 mm[Hg] Dr. Mary Dumont Work Phone: [facility] 03-28-2023 11:22-0400 Heart rate 59 /min Dr. Mary Dumont Work Phone: [facility] 03-28-2023 11:22-0400 Respiratory rate 16 /min Dr. Mary Dumont Work Phone: [facility] 03-28-2023 11:22-0400 SaO2% (BldA) [Mass fraction] 97 % Dr. Mary Dumont Work Phone: [facility] 03-28-2023 11:22-0400 Systolic blood pressure 153 mm[Hg] Dr. Mary Dumont Work Phone: [facility] 03-20-2023 08:29-0400 Body mass index (BMI) [Ratio] 26.7 kg/m2 Dr. Mary Dumont Work Phone: [facility] 03-20-2023 08:29-0400 Body temperature 97.2 [degF] Dr. Mary Dumont Work Phone: [facility] 03-20-2023 08:29-0400 Body weight 84.[address] Mary Dumont Work Phone: [facility] 03-20-2023 08:29-0400 Diastolic blood pressure 85 mm[Hg] Dr. Mary Dumont Work Phone: [facility] 03-20-2023 08:29-0400 Heart rate 59 /min Dr. Mary Dumont Work Phone: [facility] 03-20-2023 08:29-0400 Respiratory rate 18 /min Dr. Mary Dumont Work Phone: [facility] 03-20-2023 08:29-0400 SaO2% (BldA) [Mass fraction] 95 % Dr. Mary Dumont Work Phone: [facility] 03-20-2023 08:29-0400 Systolic blood pressure 149 mm[Hg] Dr. Mary Dumont Work Phone: [facility] 03-13-2023 15:51-0400 Body height 177.[address] Mary Dumont Work Phone: [facility] 03-13-2023 15:51-0400 Body mass index (BMI) [Ratio] 26.2 kg/m2 Dr. Mary Dumont Work Phone: [facility] 03-13-2023 15:51-0400 Body temperature 98.7 [degF] Dr. Mary Dumont Work Phone: [facility] 03-13-2023 15:51-0400 Body weight [address] Mary Dumont Work Phone: [facility] 03-13-2023 15:51-0400 Diastolic blood pressure 93 mm[Hg] Dr. Mary Dumont Work Phone: [facility] 03-13-2023 15:51-0400 Heart rate 68 /min Dr. Mary Dumont Work Phone: [facility] 03-13-2023 15:51-0400 Respiratory rate 16 /min Dr. Mary Dumont Work Phone: [facility] 03-13-2023 15:51-0400 SaO2% (BldA) [Mass fraction] 98 % Dr. Mary Dumont Work Phone: [facility] 03-13-2023 15:51-0400 Systolic blood pressure 146 mm[Hg] Dr. Mary Dumont Work Phone: [facility] 01-31-2023 15:11-0400 Body height 177.[address] Mary Dumont Work Phone: [facility] 01-31-2023 15:11-0400 Body mass index (BMI) [Ratio] 26.6 kg/m2 Dr. Mary Dumont Work Phone: [facility] 01-31-2023 15:11-0400 Body temperature 98 [degF] Dr. Mary Dumont Work Phone: [facility] 01-31-2023 15:11-0400 Body weight 84.[address] Mary Dumont Work Phone: [facility] 01-31-2023 15:11-0400 Diastolic blood pressure 80 mm[Hg] Dr. Mary Dumont Work Phone: [facility] 01-31-2023 15:11-0400 Heart rate 71 /min Dr. Mary Dumont Work Phone: [facility] 01-31-2023 15:11-0400 Respiratory rate 17 /min Dr. Mary Dumont Work Phone: [facility] 01-31-2023 15:11-0400 SaO2% (BldA) [Mass fraction] 97 % Dr. Mary Dumont Work Phone: [facility] 01-31-2023 15:11-0400 Systolic blood pressure 142 mm[Hg] Dr. Mary Dumont Work Phone: [facility] 01-03-2023 11:31-0400 Body temperature 97.5 [degF] Dr. Mary Dumont Work Phone: [facility] 01-03-2023 11:31-0400 Body weight 85.[address] Mary Dumont Work Phone: [facility] 01-03-2023 11:31-0400 Diastolic blood pressure 80 mm[Hg] Dr. Mary Dumont Work Phone: [facility] 01-03-2023 11:31-0400 Heart rate 63 /min Dr. Mary Dumont Work Phone: [facility] 01-03-2023 11:31-0400 Respiratory rate 16 /min Dr. Mary Dumont Work Phone: [facility] 01-03-2023 11:31-0400 SaO2% (BldA) [Mass fraction] 95 % Dr. Mary Dumont Work Phone: [facility] 01-03-2023 11:31-0400 Systolic blood pressure 130 mm[Hg] Dr. Mary Dumont Work Phone: [facility] 12-17-2022 13:55-0400 Body height 177.[address] Mary Dumont Work Phone: [facility] 12-17-2022 13:55-0400 Body mass index (BMI) [Ratio] 26.1 kg/m2 Dr. Mary Dumont Work Phone: [facility] 12-17-2022 13:55-0400 Body temperature 97.8 [degF] Dr. Mary Dumont Work Phone: [facility] 12-17-2022 13:55-0400 Body weight 82.[address] Mary Dumont Work Phone: [facility] 12-17-2022 13:55-0400 Diastolic blood pressure 82 mm[Hg] Dr. Mary Dumont Work Phone: [facility] 12-17-2022 13:55-0400 Heart rate 74 /min Dr. Mary Dumont Work Phone: [facility] 12-17-2022 13:55-0400 Respiratory rate 16 /min Dr. Mary Dumont Work Phone: [facility] 12-17-2022 13:55-0400 SaO2% (BldA) [Mass fraction] 96 % Dr. Mary Dumont Work Phone: [facility] 12-17-2022 13:55-0400 Systolic blood pressure 140 mm[Hg] Dr. Mary Dumont Work Phone: [facility] 07-12-2022 14:01-0400 Body temperature 976 [degF] Dr. Mary Dumont Work Phone: [facility] Work Phone: 07-12-2022 14:01-0400 Body weight 85.[address] Mary Dumont Work Phone: [facility] Work Phone: 07-12-2022 14:01-0400 Diastolic blood pressure 76 mm[Hg] Dr. Mary Dumotn Work Phone: [facility] Work Phone: 07-12-2022 14:01-0400 Heart rate 61 /min Dr. Mary Dumont Work Phone: [facility] Work Phone: 07-12-2022 14:01-0400 Respiratory rate 16 /min Dr. Mary Dumont Work Phone: [facility] Work Phone: 07-12-2022 14:01-0400 SaO2% (BldA) [Mass fraction] 96 % Dr. Mary Dumont Work Phone: [facility] Work Phone: 07-12-2022 14:01-0400 Systolic blood pressure 118 mm[Hg] Dr. Mary Dumont Work Phone: [facility] Work Phone: 07-11-2022 09:24-0400 Body height 177.[address] Mary Dumont Work Phone: [facility] Work Phone: 05-30-2022 13:37-0400 Body mass index (BMI) [Ratio] 25.8 kg/m2 Dr. Mary Dumont Work Phone: [facility] Work Phone: 05-30-2022 13:37-0400 Body weight 81.[address] Mary Dumont Work Phone: [facility] Work Phone: 04-16-2022 11:06-0400 Body height 177.[address] Mary Dumont Work Phone: [facility] Work Phone: 04-16-2022 11:06-0400 Body mass index (BMI) [Ratio] 27.1 kg/m2 Dr. Mary Dumont Work Phone: [facility] Work Phone: 04-16-2022 11:06-0400 Body temperature 97.8 [degF] Dr. Mary Dumont Work Phone: [facility] Work Phone: 04-16-2022 11:06-0400 Body weight 85.[address] Mary Dumont Work Phone: [facility] Work Phone: 04-16-2022 11:06-0400 Diastolic blood pressure 74 mm[Hg] Dr. Mary Dumont Work Phone: [facility] Work Phone: 04-16-2022 11:06-0400 Heart rate 55 /min Dr. Mary Dumont Work Phone: [facility] Work Phone: 04-16-2022 11:06-0400 Respiratory rate 16 /min Dr. Mary Dumont Work Phone: [facility] Work Phone: 04-16-2022 11:06-0400 SaO2% (BldA) [Mass fraction] 99 % Dr. Mary Dumont Work Phone: [facility] Work Phone: 04-16-2022 11:06-0400 Systolic blood pressure 128 mm[Hg] Dr. Mary Dumont Work Phone: [facility] Work Phone: 12-25-2021 10:24-0400 Body height 177.[address] Mary Dumont Work Phone: [facility] Work Phone: 12-25-2021 10:24-0400 Body mass index (BMI) [Ratio] 27.5 kg/m2 Dr. Mary Dumont Work Phone: [facility] Work Phone: 12-25-2021 10:24-0400 Body weight 87.[address] Mary Dumont Work Phone: [facility] Work Phone: 12-20-2021 14:35-0400 Body temperature 96.7 [degF] Dr. Mary Dumont Work Phone: [facility] Work Phone: 12-20-2021 14:35-0400 Diastolic blood pressure 88 mm[Hg] Dr. Mary Dumont Work Phone: [facility] Work Phone: 12-20-2021 14:35-0400 Heart rate 64 /min Dr. Mary Dumont Work Phone: [facility] Work Phone: 12-20-2021 14:35-0400 Respiratory rate 16 /min Dr. Mary Dumont Work Phone: [facility] Work Phone: 12-20-2021 14:35-0400 SaO2% (BldA) [Mass fraction] 99 % Dr. Mary Dumont Work Phone: [facility] Work Phone: 12-20-2021 14:35-0400 Systolic blood pressure 170 mm[Hg] Dr. Mary Dumont Work Phone: [facility] Work Phone: Encounters Encounter Date Encounter Type Care Provider Facility Start: 08-11-2025 End: 08-11-2025 ambulatory Mary Julia Facility:[facility] Start: 08-05-2025 End: 08-05-2025 ambulatory Mary Julia Facility:[facility] Start: 08-02-2025 End: 08-02-2025 ambulatory Mary Julia Facility:[facility] Start: 08-02-2025 End: 08-02-2025 [facility] Facility:[facility] Start: 07-31-2025 End: 07-31-2025 Letter encounter Anastasiia Haywood MD Work Phone: [facility] Start: 06-22-2025 End: 06-22-2025 ambulatory Mary Julia Facility:[facility] Start: 06-03-2025 End: 06-03-2025 ambulatory Mary Julia Facility:[facility] Start: 05-17-2025 End: 05-17-2025 ambulatory Mary Julia Facility:[facility] Start: 05-17-2025 End: 05-17-2025 [facility] Julia Facility:[facility] Start: 04-24-2025 End: 04-24-2025 Letter encounter Anastasiia Haywood MD Work Phone: [facility] Start: 03-10-2025 End: 03-10-2025 ambulatory Mary Julia Facility:[facility] Start: 03-08-2025 End: 03-08-2025 ambulatory Mary Julia Facility:[facility] Start: 02-16-2025 End: 02-16-2025 ambulatory Mary Julia Facility:[facility] Start: 02-16-2025 End: [facility]-16-[facility] Start: 02-15-2025 End: 02-15-2025 ambulatory Mary Dumont Facility:[facility] Start: 01-07-2025 End: 01-07-2025 ambulatory Bernabe Pramaddie Facility:[facility] Start: 12-22-2024 End: 12-22-2024 ambulatory [facility] Facility:[facility] Start: 12-16-2024 Encounter for genera l adult medical examination without abnormal findings Shamika Sarabia NP [facility] Start: 12-14-2024 End: 12-14-2024 ambulatory Mary Dumont Facility:[facility] Start: 12-09-2024 ambulatory Juancho Casey Facility :[facility] Start: 12-09-2024 End: 12-09-2024 ambulatory Juancho Casey Facility:[facility] Start: 12-07-2024 End: 12-07-2024 ambulatory Mary Dumont Facility:[facility] Start: 12-03-2024 End: 12-03-2024 ambulatory Mary Dumont Facility:[facility] Start: 11-17-2024 End: 11-17-2024 ambulatory Mary Dumont Facility:[facility] Start: 10-28-2024 End: 10-28-2024 ambulatory Mary Dumont Facility:[facility] Start: 10-26-2024 End: 10-26-2024 ambulatory Mary Dumont Facility:[facility] Start: 10-15-2024 End: 10-15-2024 ambulatory Maryharpreet Dumont Facility:[facility] Start: 09-21-2024 End: 09-21-2024 ambulatory Mary Dumont Facility:[facility] Start: 09-09-2024 End: 09-09-2024 ambulatory Mary Dumont Facility:[facility] Start: 07-07-2024 End: 07-07-2024 Office outpatient visit 15 minutes Rachell Stoll PA-C Work Phone: [facility] Comment on above: S/P cervical spinal fusion (Primary Dx); Cervical myelopathy; Myelomalacia Start: 07-07-2024 End: 07-07-2024 Subsequent hospital visit by physician Rachell Stoll PA-C Work Phone: [facility] Comment on above: Arrived Start: 07-07-2024 ambulatory RACHELL Nicholas DODIE DAS Fac ility:[facility] Start: 03-17-2024 End: 03-17-2024 Postop follow up visit related to original px Jose Black Hermann JAFFE Work Phone: [facility] Comment on above: S/P cervical spinal fusion (Primary Dx) Start: 03-17-2024 End: 03-17-2024 Subsequent hospital visit by physician Jose JAFFE Work Phone: [facility] Comment on above: Arrived Start: 03-17-2024 ambulatory MARY DUMONT Facility :[facility] Start: 01-29-2024 End: 01-29-2024 Postop follow up visit related to original px Jose K Hermann JAFFE Work Phone: [facility] Comment on above: S/P cervical spinal fusion (Primary Dx) Start: 01-29-2024 ambulatory SELF SELF Facility:[facility] Start: 01-01-2024 End: 01-01-2024 Postop follow up visit related to original px Rachell Stoll PAC Work Phone: [facility] Comment on above: Cervical myelopathy (Primary Dx); S/P cervical spinal fusion; Myelomalacia Start: 01-01-2024 ambulatory SELF SELF Facility:[facility] Start: 12-30-2023 End: 12-30-2023 Emergency department patient visit Dr. Mary Dumont Work Phone: [facility]-Emergency Department Work Phone: Start: 12-25-2023 End: 12-25-[address] Mary Dumont Work Phone: [facility] Work Phone: Start: 12-23-2023 End: 12-23-[address] Mary Dumont Work Phone: [facility] Work Phone: Start: 12-19-2023 End: 12-20-2023 ambulatory JOSE MCCRARY Facility:[facility] Start: 12-19-2023 End: 12-20-2023 Subsequent hospital visit by physician Jose Mccrary MD, MBBS Work Phone: [facility] Comment on above: Cervical vertebral f usion Start: 12-16-[address] Mary Dumont Work Phone: [facility] Start: 12-05-2023 Encounter for other preprocedural examination KAYLIE YI Facility:[facility] Start: 12-05-2023 ambulatory KAYLIE YI Facility :[facility] Start: 12-05-2023 End: 12-05-2023 Office consultation new/estab patient 60 min Kaylie Yi STABLE ATTENDANT-SALES RECORD CLERK Work Phone: Pre-Procedure Evaluation and Assessment [facility] Comment on above: Preop exam for inter nal medicine (Primary Dx); Cervical myelopathy; Osteoarthritis of cervical spine with myelopathy; Spinal stenosis, cervical region; Gastroesophageal reflux disease, unspecified whether esophagitis present; Cervical disc disease; MADELEINE (obstructive sleep apnea); Essential hypertension; Prediabetes; Hereditary hemochromatosis; Hypertriglyceridemia Start: 12-05-2023 End: 12-05-2023 Patient encounter status Kaylie Yi STABLE ATTENDANT-SALES RECORD CLERK Work Phone: [facility] Start: 12-05-2023 ambulatory JOSE MCCRARY Facility: [facility] Start: 11-21-2023 End: 11-21-[address] Mary Dumont Work Phone: [facility] Work Phone: Start: 11-12-2023 End: 11-12-[address] Mary Dumont Work Phone: [facility] Work Phone: Start: 11-12-2023 End: 11-12-[address] Mary Dumont Work Phone: [facility]-Sleep Lab Work Phone: Start: 11-12-2023 End: 11-12-[address] Mary Dumont Work Phone: [facility] Work Phone: Start: 11-11-2023 End: 11-11-[address] Mary Dumont Work Phone: [facility] Work Phone: Start: 11-05-2023 End: 11-05-[address] Mary Dumont Work Phone: [facility] Work Phone: Start: 11-05-2023 End: 11-05-[address] Mary Dumont Work Phone: [facility]-Pulmonary Services/Neurology Work Phone: Start: 10-24-2023 End: 10-24-[address] [facility] Dum[facility] Work Phone: Start: 10-22-2023 End: 10-22-[address] Mary Dumont Work Phone: [facility] Work Phone: Start: 10-21-[address] Mary Dumont Work Phone: [facility] Start: 10-21-2023 End: 10-21-[address] Mary Dumont Work Phone: [facility] Work Phone: Start: 10-14-2023 End: 10-14-[address] Mary Dumont Work Phone: [facility] Work Phone: Start: 10-02-2023 End: 10-02-2023 Office outpatient visit 15 minutes Jose K Mccrary MBBS Work Phone: [facility] Comment on above: Cervical myelopathy (Primary Dx); Osteoarthritis of cervical spine with myelopathy; Spinal stenosis of cervical region; Cervical disc disease Start: 10-02-2023 ambulatory SELF SELF Facility:[facility] Start: 09-11-2023 End: 09-11-[address] Mary Dumont Work Phone: [facility] Work Phone: Start: 09-09-2023 End: 09-09-[address] Mary Dumont Work Phone: [facility] Work Phone: Start: 09-09-2023 End: 09-09-[address] Mary Dumont [facility] Phone[facility] Work Phone: Start: 08-26-2023 End: 08-26-[address] Mary Dumont Work Phone: [facility] Work Phone: Start: 08-19-[address] Mary Dumont Work Phone: [facility] Start: 08-13-2023 End: 08-13-[address] Mary Dumont Work Phone: [facility]-Sleep Lab Work Phone: Start: 07-28-2023 Letter encounter Anastasiia wilhelm MD Work Phone: [facility] Start: 07-25-2023 End: 07-25-[address] Mary Dumont Work Phone: [facility]-Pulmonary Medicine [facility] Work Phone: Start: 07-02-2023 End: 07-02-[address] Mary Dumont Work Phone: [facility]-Laboratory Work Phone: Start: 07-01-2023 End: 07-01-[address] Mary Dumont Work Phone: [facility] Work Phone: Start: 06-24-2023 End: 06-24-[address] Mary Dumont Work Phone: [facility] Work Phone: Start: 06-12-2023 Non-patient / Non-visit Dr. Emily Dumont Work Phone: [facility] Work Phone: Start: 06-12-2023 End: 06-12-2023 Office outpatient visit 40 minutes Jose JAFFE Work Phone: [facility]opedics Outpatient [facility] Comment on above: Cervical myelopathy (Primary Dx); Spinal stenosis of lumbar region with neurogenic claudication; Degenerative disc disease, lumbar; Numbness and tingling; Foraminal stenosis of lumbar region Start: 06-12-2023 End: 06-12-2023 Subsequent hospital visit by physician Jose JAFFE Work Phone: Imaging [facility] Mammography [facility] Comment on above: Arrived Start: 06-11-[address] Mary Dumont Work Phone: [facility] Start: 06-06-2023 Non-patient / Non-visit Dr. Emily Dumont Work Phone: [facility] Start: 06-06-2023 End: 06-06-[address] Mary Dumont Work Phone: [facility] Work Phone: Start: 06-06-2023 End: 06-06-[address] [facility] Dum[facility] Work [facility] Start: 06-04-2023 End: 06-04-[address] Mary Dumont Work Phone: [facility] Work Phone: Start: 05-30-2023 End: 05-30-2023 Subsequent hospital visit by physician Jose JAFFE Work Phone: [facility] [place] Comment on above: Arrived Start: 05-27-[address] Mary Dumont Work Phone: [facility] Start: 05-23-2023 Non-patient / Non-visit Dr. Emily Dumont Work Phone: [facility] Work Phone: Start: 05-23-2023 Non-patient / Non-visit Dr. Emily Dumont Work Phone: [facility] Start: 05-23-2023 End: 05-23-[address] Mayr Dumont Work Phone: [facility] Work Phone: Start: 05-23-2023 End: 05-23-[address] Mary Dumont [facility] Work [facility]: Start: 05-22-2023 Non-patient / Non-visit Dr. Emily Dumont Work Phone: [facility] Start: 05-22-2023 End: 05-22-2023 Admission to same day surgery center Dr. Mary Dumont Work Phone: [facility]-Endoscopy Work Phone: Start: 05-22-2023 End: 05-22-[address] Mary Dumont Work Phone: [facility] Work Phone: Start: 05-13-[address] Mary Dumont Work Phone: [facility] Start: 05-09-2023 End: 05-09-[address] Mary Dumont Work Phone: [facility] Work Phone: Start: 05-08-2023 End: 05-08-2023 Office outpatient new 45 minutes Jose JAFFE Work Phone: [facility] Comment on above: Degenerative disc di sease, lumbar (Primary Dx); Spinal stenosis of lumbar region with neurogenic claudication; Myelopathy Start: 05-08-2023 End: 05-08-2023 Subsequent hospital visit by physician Jose JAFFE Work Phone: [facility] M[facility]ography [facility] Comment on above: Arrived Start: 05-01-2023 End: 05-01-[address] Mary Dumont Work Phone: [facility] Work Phone: Start: 05-01-2023 End: 05-01-[address] Mary Dumont Work Phone: [facility] Work Phone: Start: 04-29-[address] Mary Dumont Work Phone: [facility] Start: 04-19-2023 End: 04-19-[address] Mary Dumont Work Phone: [facility]Pulmonary [facility] Work Phone: Start: 04-04-2023 End: 04-04-[address] Mary Dmuont Work Phone: [facility] Work Phone: Start: 04-04-2023 End: 04-04-[address] Mary Dumont Work Phone: [facility]-Sleep Lab Work Phone: Start: 03-28-2023 End: 03-28-[address] Mary Dumont Work Phone: [facility] Work Phone: Start: 03-20-2023 End: 03-20-[address] Mary Dumont Work Phone: [facility] Work Phone: Start: 03-14-2023 End: 03-14-[address] Mary Dumont Work Phone: [facility] Work Phone: Start: 03-14-2023 End: 03-14-[address] Mary Dumont Work Phone: [facility] Start: 03-13-2023 End: 03-13-[address] Mary Dumont Work Phone: [facility] Start: 03-08-2023 End: 03-08-[address] Mary Dumont Work Phone: [facility], [facility] Start: 03-02-2023 End: 03-02-[address] Mary Dumont Work Phone: [facility] Work Phone: Start: 03-02-2023 End: 03-02-[address] Mary Dumont Work Phone: [facility] Start: 02-28-2023 End: 02-28-[address] Mary Dumont Work Phone: [facility] Work Phone: Start: 02-28-2023 End: 02-28-[address] [facility] Start: 02-21-2023 End: 02-21-[address] Mary Dumont Work Phone: [facility] Work Phone: Start: 02-21-2023 End: 02-21-[address] Mary Dum[facility] Start: 01-31-2023 End: 01-31-[address] Mary Dumont Work Phone: [facility] Start: 01-28-2023 Letter encounter Anastasiia wilhelm MD Work Phone: [facility] Start: 01-19-2023 End: 01-19-[address] Mary Dumont Work Phone: [facility] Work Phone: Start: 01-19-2023 End: 01-19-[address] Mary Dumont Work Phone: [facility], [facility] Start: 01-16-2023 End: 01-16-[address] Mary Dumont Work Phone: [facility] Work Phone: Start: 01-16-2023 End: 01-16-[address] Mary Dumont [facility] [place] Start: 01-03-2023 End: 01-03-2023 Encounter for general adult medical examination without abnormal findings Dr. Mary Dumont Work Phone: [facility] Start: 01-03-2023 End: 01-03-[address] Mary Dumont Work Phone: [facility] Start: 01-03-[address] Mary Dumont Work Phone: [facility] Start: 12-17-2022 End: 12-17-[address] Mary Dumont Work Phone: [facility] Work Phone: Start: 12-17-2022 End: 12-17-[address] Mary Dumont Work Phone: [facility] Start: 10-23-2022 Letter encounter Anastasiia wilhelm MD Work Phone: [facility] Start: 10-17-2022 End: 10-17-[address] Mary Dumont Work Phone: [facility]/Neurology Start: 10-03-[address] Mary Dumont Work Phone: [facility] Start: 08-22-[address] Mary Dumont Work Phone: [facility] Start: 08-20-2022 End: 08-20-[address] Mary Dumont Work Phone: [facility] Work Phone: Start: 08-20-2022 End: 08-20-[address] Mary Dumont Work Phone: [facility] Start: 08-16-2022 End: 08-16-[address] Mary Dumont Work Phone: [facility] Start: 08-06-2022 End: 08-06-[address] Mary Dumont Work Phone: [facility] Start: 08-01-2022 End: 08-01-[address] Mary Dumont Work Phone: [facility] Work Phone: Start: 08-01-2022 End: 08-01-[address] Mary Dumont Work Phone: [facility] Start: 07-24-2022 Letter encounter Anastasiia wilhelm MD Work Phone: [facility] Start: 07-12-2022 End: 07-12-[address] Mary Dumont Work Phone: [facility] Start: 05-30-2022 End: 05-30-[address] Mary Dumont Work Phone: [facility] Start: 05-18-2022 End: 05-18-[address] Mary Dumont Work Phone: [facility] Work Phone: Start: 05-18-2022 End: 05-18-[address] Mary Dumont Work Phone: [facility] Start: 04-30-2022 End: 04-30-[address] Mary Dumont Work Phone: [facility] Start: 04-16-2022 End: 04-16-[address] Mary Dumont Work Phone: [facility] Start: 01-22-2022 Letter encounter Anastasiia wilhelm MD Work Phone: [facility] Start: 01-04-2022 End: 01-04-[address] Mary Dumont Work Phone: [facility] Start: 12-25-2021 End: 12-25-[address] Mary Dumont Work Phone: [facility] Start: 12-20-2021 End: 12-20-[address] Mary Dumont Work Phone: [facility] Start: 12-01-2021 End: 12-01-[address] Mary Dumont Work Phone: [facility] Start: 04-18-2021 End: 04-18-2021 ambulatory UNKNOWN PROVIDER Facility:[facility] Procedures Date Procedure Procedure Detail Performing Clinician Start: 07-07-2024 Radex spine cervical 2 or 3 views Rachell Stoll PA-C Work Phone: Start: 03-17-2024 Radex spine cervical 2 or 3 views Tanika Mcclellan STABLE ATTENDANT-SALES RECORD CLERK Work Phone: Start: 12-30-2023 CT of head without contrast Dr. Mary Dumont Work Phone: Start: 12-20-2023 Radex spine cervical 2 or 3 views Harshad Arciniega MD Work Phone: Start: 12-20-2023 Basic metabolic pane l calcium total Harshad Arciniega MD Work Phone: Start: 12-19-2023 CARDIAC RHYTHM Other Ot her Start: 12-19-2023 ABORH TYPE RECONFIRMATION Vannessa Nieslon DO Work Phone: Start: 12-05-2023 Antibody screen JOSE S JAI Comment on above: Performed By: #### X MPO #### [facility] ([facility]) [address] [place] [id number] Start: 12-05-2023 CBC AND ELECTRONIC DIFF Kaylie Yi STABLE ATTENDANT-SALES RECORD CLERK Work Phone: Start: 12-05-2023 Complete blood count with white cell differential, automated Kaylie Yi STABLE ATTENDANT-SALES RECORD CLERK Work Phone: Start: 12-05-2023 Comprehensive metabo lic panel Kaylie Yi STABLE ATTENDANT-SALES RECORD CLERK Work Phone: Start: 03-07-2024 EXTRA LIGHT BLUE TOP As dariel Burker STABLE ATTENDANT-SALES RECORD CLERK Work Phone: Start: 12-05-2023 PTT WITH MIXING STUDY A tahira Yi STABLE ATTENDANT-SALES RECORD CLERK Work Phone: Start: 12-05-2023 Urnls dip stick/tabl et reagent auto microscopy Kaylie Yi STABLE ATTENDANT-SALES RECORD CLERK Work Phone: Start: 10-22-2023 Computed tomography of abdomen and pelvis with contrast Dr. Mary Dumont Work Phone: Start: 07-02-2023 Giardia Antigen (ZACHERY) Deborah Dumont Work Phone: Start: 07-02-20[address] parasites identification Dr. Mary Dumont Work Phone: Start: 06-12-2023 Radex spine cervical 4 or 5 views Jose Mccrary [facility] Work Phone: Start: 05-22-[address] Mary Dumont Work Phone: Start: 05-08-2023 Radex spine lumbosac ral minimum 4 views Jose Mccrary [facility] Work Phone: Start: 05-01-2023 Biopsy/Inj or Needle Placement Dr. Mary Dumont Work Phone: Start: 03-08-[address] Mary Dumont Work Phone: Start: 02-28-2023 Giardia Antigen (ZACHERY) Deborah Dumont Work Phone: Start: 02-28-[address] parasites identification Dr. Mary Dumont Work Phone: Start: 01-19-[address] Mary Dumont Work Phone: Start: 05-18-2022 MRI of lumbar spine with contrast Dr. Mary Dumont Work Phone: Start: 04-30-2022 X-ray of lumbar spin e, two or three views Dr. Mary Dumont Work Phone: Start: 12-25-2021 X-ray of cervical spine Dr. Mary Dumont Work Phone: Clostridium difficil e detection Dr. Mary Dumont Work Phone: Clostridium difficil e detection Dr. aMry Dumont Work Phone: Giardia Antigen (ZACHERY) Dr. Emily Dumont Work Phone: H/O: surgery History of neck surgery Dr. Mray Dumont Work Phone: Lactoferrin measurement Dr. Mary Dumont Work Phone: Measurement of occul t blood in stool specimen using immunoassay Dr. Mary Dumont Work Phone: O[facility] OR parasites identification Dr. Mary Dumont Work Phone: Plan of Treatment Date Care Activity Detail Author Start: 05-28-2026 Tetanus vaccination [facility] Start: 06-30-2025 Influenza vaccination Influenza Vaccine (#1) [facility] Start: 05-31-2025 COVID-19 Vaccine ( season) COVID-19 Vaccine ( season) [facility] Start: 05-31-2025 Influenza vaccination Influenza Vaccine (#1) [facility] Start: 03-23-2025 Lipid panel Cholesterol [facility] Start: 12-19-2024 Potassium [Moles/volume] in Serum or Plasma POTASSIUM [facility] Start: 12-04-2024 Potassium [Moles/volume] in Serum or Plasma POTASSIUM [facility] Start: 10-07-2024 End: 10-07-2024 Patient encounter procedure 10/07/2024 10:00 AM EST Office Visit [facility] [address] [place] [address] Jose Mccrary, LD [address] [facility] [address] [place] [address] [facility] Start: 06-17-2024 End: 06-17-2024 Patient encounter procedure 06/17/2024 10:00 AM EDT Office Visit [facility] [address] [place] [address] Rachell Stoll Jr., PA-C [address] [facility] [place] [address] [facility] Start: 05-31-2024 COVID-19 VACCINE () COVID-19 VACCINE () [facility] Start: 05-31-2024 COVID-19 Vaccine () COVID-19 Vaccine () [facility] Start: 05-31-2024 Influenza vaccination INFLUENZA VACCINE (#1) [facility] Start: 03-17-2024 End: 03-17-2024 Patient encounter procedure 03/17/2024 10:15 AM EDT Office Visit [facility] [address] [place] [id number] Jose Mccrary MBBS [address] [place] [address] [facility] Start: 02-10-2024 Phlebotomy [facility] Start: 01-29-2024 End: 01-29-2024 Patient encounter procedure 01/29/2024 11:00 AM EDT Office Visit [facility] [address] [place] [address] Jose Mccrary MD, MBBS [address] [facility] [place] [address] [facility] Start: 01-01-2024 End: 01-01-2024 Patient encounter procedure 01/01/2024 11:00 AM EDT Office Visit [facility] [address] [place] [address] Rachell Stoll Jr., PAC [address] [facility] [place] [address] Sp[facility] Care Outpatient [facility] Start: 12-30-2023 [facility] Start: 12-25-2023 Patient referral [facility] Work Phone: Start: 12-19-2023 End: 12-19-2023 Admission to same day surgery center 12/19/2023 1:22 PM EDT - 12/19/2023 4:58 PM EDT Surgery [facility] [address] [place] [address] Jose Mccrary MD, MBBS [address] [place] [address] FUSION ANTERIOR INTERBODY CERVICAL C5-7 [facility] Comment on above: FUSION ANTERIOR INTERBODY CERVICAL C5-7 Start: 12-19-2023 End: 12-19-2023 Anterior instrumentation 2-3 vertebral segments INSERTION SPINAL INSTRUMENTATION ANTERIOR ADD-ON PX Cervical myelopathy Osteoarthritis of cervical spine with myelopathy Spinal stenosis of cervical region Cervical disc disease 12/19/2023 1:22 PM EDT [facility] Start: 12-19-2023 End: 12-19-2023 Arthrd ant interbody decompress cervical belw c2 FUSION ANTERIOR INTERBODY CERVICAL Cervical myelopathy Osteoarthritis of cervical spine with myelopathy Spinal stenosis of cervical region Cervical disc disease 12/19/2023 1:22 PM EDT [facility] Start: 12-19-2023 End: 12-19-2023 Arthrd ant interdy cervcl belw c2 ea addl ntrspc FUSION ANTERIOR INTERBODY CERVICAL EACH ADDL INTERSPACE ADD-ON PX Cervical myelopathy Osteoarthritis of cervical spine with myelopathy Spinal stenosis of cervical region Cervical disc disease 12/19/2023 1:22 PM EDT [facility] Start: 12-19-2023 End: 12-19-2023 Insj biomchn dev intervertebral dsc spc w/arthrd APPLICATION INTERBODY/INTERVERTEBRAL BIOMECHANICAL DEVICE ADD-ON PX Cervical myelopathy Osteoarthritis of cervical spine with myelopathy Spinal stenosis of cervical region Cervical disc disease 12/19/2023 1:22 PM EDT [facility] Start: 12-19-2023 End: 12-19-2023 Ionm 1 on 1 in or w/attendance each 15 minutes MONITORING NEUROPHYSIOLOGY INTRAOPERATIVE ADD-ON PX Cervical myelopathy Osteoarthritis of cervical spine with myelopathy Spinal stenosis of cervical region Cervical disc disease 12/19/2023 1:22 PM EDT [facility] Start: 12-19-2023 End: 12-19-2023 Microsurg tqs req use operating microscope MICROSURGICAL TECHNIQUES W/ OPERATING MICROSCOPE ADD-ON PX Cervical myelopathy Osteoarthritis of cervical spine with myelopathy Spinal stenosis of cervical region Cervical disc disease 12/19/2023 1:22 PM EDT [facility] Start: 12-19-2023 Subsequent hospital visit by physician 12/19/2023 1:22 PM EDT Hospital Encounter [facility] [address] [place] [address] Jose Mccrary MD, MBBS [address] [facility] [facility] [address] [place] [address] Cervical myelopathy [facility] Comment on above: Cervical myelopathy Start: 12-16-2023 Phlebotomy [facility] Start: 12-05-2023 End: 02-03-2024 SCREEN: MRSA/MSSA [facility] Comment on above: Expected: 12/05/2023, Expires: 4 Start: 12-05-2023 End: 12-04-2024 TYPE AND SCREEN - PREADMISSION [facility] Comment on above: Expected: 12/05/2023, Expires: 5 Start: 12-05-2023 End: 02-03-2024 URINALYSIS REFLEX TO CULTURE [facility] Comment on above: Expected: 12/05/2023, Expires: 4 Start: 11-11-2023 Patient referral [facility] Work Phone: Start: 10-21-2023 Phlebotomy [facility] Start: 09-16-2023 Phlebotomy [facility] Start: 08-19-2023 Phlebotomy [facility] Start: 07-22-2023 Phlebotomy [facility] Start: 06-24-2023 Phlebotomy [facility] Start: 06-12-2023 End: 06-12-2023 Patient encounter procedure 06/12/2023 1:00 PM EDT Office Visit [facility] [place] [address] [place] [address] Jose Mccrary MBBS [address] [facility] [address] [place] [id number] Orthopedics Outpatient [facility] Start: 06-11-2023 Vitamin D, 1,25-dihydroxy measurement [facility] Start: 06-11-2023 [facility] Start: 06-11-2023 Phlebotomy [facility] Start: 05-31-2023 COVID-19 VACCINE ( season) COVID-19 VACCINE ( season) [facility] Start: 05-31-2023 Influenza vaccination INFLUENZA VACCINE (#1) [facility] Start: 05-30-2023 End: 05-30-2023 Patient encounter procedure [facility] M[facility] [place] Start: 05-27-2023 Phlebotomy [facility] Start: 05-22-2023 Colonoscopy w/biopsy single/multiple COLONOSCOPY AND BIOPSY [facility] Start: 05-22-2023 Colsc flx w/rmvl of tumor polyp lesion snare tq COLONOSCOPY W/LESION REMOVAL [facility] Start: 05-22-2023 Egd transoral biopsy single/multiple EGD BIOPSY SINGLE/MULTIPLE [facility] Start: 05-22-2023 Patient discharge [facility] Start: 05-13-2023 Phlebotomy [facility] Start: 05-08-2023 End: 05-08-2024 MR Cervical spine WO contrast MRI SPINE CERVICAL WITHOUT CONTRAST Imaging Routine Myelopathy Expected: 05/08/2023, Expires: 05/08/2024 [facility] Comment on above: Expected: 05/08/2023, Expires: Start: 05-08-2023 End: 05-08-2024 MR Lumbar spine WO and W contrast IV MRI SPINE LUMBAR WITH AND WITHOUT CONTRAST Imaging Routine Degenerative disc disease, lumbar Spinal stenosis of lumbar region with neurogenic claudication Expected: 05/08/2023, Expires: 05/08/2024 [facility] Comment on above: Expected: 05/08/2023, Expires: Start: 05-01-2023 Biopsy liver needle percutaneous NEEDLE BIOPSY OF LIVER [facility] Start: 05-01-2023 Following clinical pathway protocol [facility] Start: 05-01-2023 Catheterization of vein [facility] Start: 05-01-2023 Oxygen therapy [facility] Start: 05-01-2023 Patient discharge [facility] Start: 05-01-2023 Vital signs measurements [facility] Start: 03-28-2023 Phlebotomy [facility] Start: 02-28-2023 Fat [Presence] in Stool [facility] Start: 02-28-2023 Protein measurement [facility] Start: 02-28-2023 [facility] Start: 01-03-2023 Patient referral [facility] Work Phone: Start: 08-16-2022 Patient referral [facility] Work Phone: Start: 06-30-2022 Influenza vaccination Influenza Vaccine (#1) [facility] Start: 04-16-2022 Patient referral [facility] Work Phone: Start: 12-20-2021 Patient referral [facility] Work Phone: Start: 06-30-2020 Annual wellness visit Annual Wellness Visit ([id number]) [facility] Start: 2016 Measurement of occult blood in single stool specimen FIT [facility] Start: 2016 Pneumococcal vaccination Pneumococcal Vaccine(s) (50+ yrs) (1 of 1 - PCV) [facility] Start: 2016 Prostate specific antigen measurement PROSTATE CANCER SCREENING DISCUSSION [facility] Start: 2016 Screening for malignant neoplasm of colon CRC Screening [facility] Start: 2016 Shingles (RZV) Vaccine (1 of 2) Shingles (RZV) Vaccine (1 of 2) [facility] Start: 2016 Zoster vaccine hzv live for subcutaneous use ZOSTER (SHINGLES) VACCINE (1 of 2) [facility] Start: 2011 Screening for malignant neoplasm of colon [facility] Start: 2006 Lipid panel LIPID SCREENING [facility] Start: 2001 Lipid panel Cholesterol [facility] Start: 1985 Hepatitis A (HAV) Vaccine (optional start 19+ years) Hepatitis A (HAV) Vaccine (optional start 19+ years) [facility] Start: 1985 Hepatitis B vaccination [facility] Start: 1984 Hepatitis C screening Hepatitis C Antibody [facility] Start: 1981 HIV screening [facility] Start: 1971 COVID-19 Vaccine (1) COVID-19 Vaccine (1) [facility] Start: 04-19-1967 COVID-19 Vaccine (#1) COVID-19 Vaccine (#1) [facility] Start: 1966 Basic metabolic 2000 panel - Serum or Plasma Basic Metabolic Panel [facility] Start: 1966 Creatinine measurement Basic Metabolic Panel [facility] Start: 1966 Hepatitis B vaccination HEP B VACCINE (1 of 3 - 3-dose series) [facility] Start: 1966 Hepatitis C screening HEPATITIS C VIRUS SCREENING [facility] Start: 1966 Potassium [Moles/volume] in Serum or Plasma POTASSIUM [facility] Start: 1966 Screening for malignant neoplasm of colon [facility] Anterior instrumenta tion 2-3 vertebral segments INSERTION SPINAL INSTRUMENTATION ANTERIOR ADD-ON PX Cervical myelopathy Osteoarthritis of cervical spine with myelopathy Spinal stenosis of cervical region Cervical disc disease [facility] APPLICATION INTERBODY/INTERVERTEBRAL BIOMECHANICAL DEVICE ADD-ON PX APPLICATION INTERBODY/INTERVERTEBRAL BIOMECHANICAL DEVICE ADD-ON PX Cervical myelopathy Osteoarthritis of cervical spine with myelopathy Spinal stenosis of cervical region Cervical disc disease [facility] Arthrd ant interbody decompress cervical belw c2 FUSION ANTERIOR INTERBODY CERVICAL Cervical myelopathy Osteoarthritis of cervical spine with myelopathy Spinal stenosis of cervical region Cervical disc disease [facility] Arthrd ant interdy cervcl belw c2 ea addl ntrspc FUSION ANTERIOR INTERBODY CERVICAL EACH ADDL INTERSPACE ADD-ON PX Cervical myelopathy Osteoarthritis of cervical spine with myelopathy Spinal stenosis of cervical region Cervical disc disease [facility] CBC W Auto Different ial panel - Blood [facility] CBC W Auto Different ial panel - Blood [facility] CBC W Auto Different ial panel - Blood [facility] CBC W Auto Different ial panel - Blood [facility] Ecg routine ecg w/le ast 12 lds w/i&r KS ELECTROCARDIOGRAM, COMPLETE [place] - OFFICE PERFORMED Routine Preop exam for internal medicine Cervical myelopathy Osteoarthritis of cervical spine with myelopathy Spinal stenosis, cervical region Gastroesophageal reflux disease, unspecified whether esophagitis present Cervical disc disease MADELEINE (obstructive sleep apnea) Essential hypertension Prediabetes Hereditary hemochromatosis Hypertriglyceridemia [facility]: [facility] Comment on above: Ordered: 12/05/2023 Elastase, pancreatic (el-1), fecal; quantitative [facility] Elastase.pancreatic [Presence] in Stool [facility] EXTRA MICRO EXTRA MICRO Flui ds Routine Preop exam for internal medicine Cervical myelopathy Osteoarthritis of cervical spine with myelopathy Spinal stenosis, cervical region Gastroesophageal reflux disease, unspecified whether esophagitis present Cervical disc disease MADELEINE (obstructive sleep apnea) Essential hypertension Prediabetes Hereditary hemochromatosis Hypertriglyceridemia 12/05/2023 11:49 AM EST [facility] Fat [Mass/mass] in Stool [facility] Fat.neutral [Presenc e] in Stool [facility] Ferritin [Mass/volum e] in Serum or Plasma [facility] Ferritin [Mass/volum e] in Serum or Plasma [facility] Ferritin [Mass/volum e] in Serum or Plasma [facility] Gastrointestinal pathogens panel - Stool by MARGOTH with probe detection [facility] Giardia lamblia Ag [Presence] in Stool by Immunoassay [facility] Helicobacter pylori Ag [Presence] in Stool by Immunoassay [facility] Ionm 1 on 1 in or w/attendance each 15 minutes MONITORING NEUROPHYSIOLOGY INTRAOPERATIVE ADD-ON PX Cervical myelopathy Osteoarthritis of cervical spine with myelopathy Spinal stenosis of cervical region Cervical disc disease [facility] Iron and Iron bindin g capacity panel - Serum or Plasma [facility] Iron and Iron bindin g capacity panel - Serum or Plasma [facility] Iron and Iron bindin g capacity panel - Serum or Plasma [facility] Lactoferrin [Presenc e] in Stool by Immunoassay [facility] Measurement of occul t blood in stool specimen using immunoassay [facility] Microsurg tqs req us e operating microscope MICROSURGICAL TECHNIQUES W/ OPERATING MICROSCOPE ADD-ON PX Cervical myelopathy Osteoarthritis of cervical spine with myelopathy Spinal stenosis of cervical region Cervical disc disease [facility] End: 05-30-2023 MR Cervical spine WO contrast [facility] Comment on above: 1 Occurrences starting 05/30/2023 until 05/30/2023 End: 05-30-2023 MR Lumbar spine WO and W contrast IV [facility] Comment on above: 1 Occurrences starting 05/30/2023 until 05/30/2023 Ova and parasites identified in Unspecified specimen by Light microscopy [facility] Patient Education [facility] Work Phone: Patient referral [facility] Work Phone: Procedure [facility] Prostate specific antigen measurement [facility] End: 12-19-2023 RF Greater than 1 hour [facility] Comment on above: One Time for 1 Occurrences starting 11/29 until 12/19/2023 Stress echocardiography [facility] Ultrasound elastography [facility] US Abdomen limited [facility] US Heart [facility] Immunizations Immunization Date Immunization Notes Care Provider Shira meneses 07-25-2023 influenza, injectabl e, quadrivalent, preservative free Dr. Mary Dumont Work Phone: [facility] 07-25-2023 influenza virus vaccine, unspecified formulation Rachell Stoll Jr., PA-C Work Phone: [facility] 07-28-2021 Seasonal, quadrivalent, recombinant, injectable influenza vaccine, preservative free Anastasiia Haywood MD Work Phone: [facility] 07-28-2021 influenza virus vaccine, unspecified formulation Anastasiia Haywood MD Work Phone: [facility] 06-25-2016 influenza, seasonal, injectable Anastasiia Haywood MD Work Phone: [facility] 05-28-2016 tetanus toxoid, reduced diphtheria toxoid, and acellular pertussis vaccine, adsorbed Anastasiia Haywood MD Work Phone: [facility] 07-29-2015 influenza, seasonal, injectable Anastasiia Haywood MD Work Phone: [facility] 09-27-2014 influenza, seasonal, injectable Anastasiia Haywood MD Work Phone: [facility] 06-18-2013 influenza, seasonal, injectable Anastasiia Haywood MD Work Phone: [facility] 09-20-2011 influenza virus vaccine, unspecified formulation Anastasiia Haywood MD Work Phone: [facility] 08-18-2007 influenza virus vaccine, unspecified formulation Anastasiia Haywood MD Work Phone: [facility] Payers Date Payer Category Payer Self-pay [id number] 2023 Unknown [id number] 2019 Medicare [id number] 2019 Medicare [id number] 2019 Medicare (Managed Care) [facility] [id number] 2016 Unknown [id number] 1966 Unknown [id number] 2.16.840.1.225904.3.579.2. 732 1966 Unknown [id number] 2.16.840.1.504312.3.579.2. 594 1966 Unknown [id number] 2.16.840.1.718380.3.579.2. 594 1966 Unknown [id number] 2.16.840.1.378949.3.579.2. 594 1966 Unknown [id number] 2.16.840.1.612374.3.579.2. 594 1966 Unknown [id number] 2.16.840.1.113831.3.579.2. 594 1966 Unknown [id number] 2.16.840.1.200610.3.579.2. 594 1966 Unknown [id number] 2.16.840.1.877809.3.579.2. 594 1966 Unknown [id number] 2.16.840.1.974534.3.579.2. 594 1966 Unknown [id number] 2.16.840.1.027329.3.579.2. 594 1966 Unknown [id number] 2.16.840.1.401210.3.579.2. 594 1966 Unknown [id number] 2.16.840.1.848781.3.579.2. 594 Medicare [id number] Medicare [employer] MEDICARE HMO [id number] Private Health Insurance AETNA [facility] [id number] Private Health Insurance AETNA [facility] [id number] Unknown [id number] 2.16840.1.162759.3.579.2. 462 Unknown [id number] 2.840.1.919059.3.579.2. 462 Unknown [id number] 2.840.1.791645.3.579.2. 462 Unknown [id number] 2.840.1.060326.3.579.2. 462 Unknown [id number] 2.840.1.549137.3.579.2. 462 Unknown [id number] 2.840.1.334990.3.579.2. 462 Unknown [id number] 2.840.1.851361.3.579.2. 462 Unknown [id number] 2.840.1.204523.3.579.2. 462 Unknown [id number] 2.840.1.571539.3.579.2. 462 Unknown [id number] 2.840.1.901607.3.579.2. 462 Unknown [id number] .840.1.311629.3.579.2. 462 Unknown [id number] 2.840.1.492455.3.579.2. 462 Unknown [id number] 2.840.1.639812.3.579.2. 462 Unknown [id number] 2.840.1.726219.3.579.2. 462 Unknown [id number] 2.840.1.687725.3.579.2. 462 Unknown [id number] 2.840.1.287519.3.579.2. 462 Unknown [id number] 2.840.1.677687.3.579.2. 462 Unknown [id number] 2.840.1.543303.3.579.2. 462 Unknown [id number] 2.840.1.543759.3.579.2. 462 Unknown [id number] 2.16840.1.913878.3.579.2. 462 Unknown [id number] 2.16840.1.439797.3.579.2. 462 Unknown [id number] 2.16.840.1.093131.3.579.2. 462 Unknown [id number] 2.16.840.1.855686.3.579.2. 462 Unknown [id number] 2.16840.1.089370.3.579.2. 462 Unknown [id number] 2.16840.1.282519.3.579.2. 462 Unknown [id number] 2.840.1.486658.3.579.2. 462 Unknown [id number] 2.840.1.815809.3.579.2. 462 Social History Date Type Detail Facility Start: 10-06-2019 End: 12-19-2023 Tobacco smoking status WAIS Ex-smoker [facility] Start: 10-06-2019 End: 12-19-2023 Tobacco use and exposure Smokeless tobacco non-user [facility] Start: 1965 Sex Assigned At [facility] Start: 12-25-2021 End: 09-11-2023 Tobacco smoking status [facility] Unknown if ever smoked [facility] Start: 09-03-2014 None [facility] Start: 09-03-2014 Spouse/ Significant Other [facility] Start: 09-03-2014 Non-smoker [facility] History of tobacco use Current smoker [facility] Start: 1965 Sex Assigned At Not on file [facility] Start: 02-08-2021 Gender identity Identifies as male gender (finding) [facility] Start: 04-18-2021 End: 12-19-2023 Sexual orientation Not on file [facility] Start: 02-08-2021 Sexual orientation Heterosexual (finding) [facility] History of tobacco use Cigarette Smoker [facility] Start: 12-19-2023 End: 07-07-2024 Alcoholic beverage intake Ex-drinker (finding) [facility] Start: 04-18-2021 End: 12-19-2023 History of Social function [facility] Start: 07-31-2019 Sex Male (finding) [facility] Medical Equipment Procedure Code Equipment Code Equipment Origin al Text Equipment Identifier Dates Substitute Bone Graft 2.5cc Allograft Putty Syringe I Factor - [id number] Start: 12-19-2023 Screw Bone 18mm 3.5mm Self Drill Variable Angle [id number] - [id number] Start: 12-19-2023 Plate Bone 30mm 2 Level [id number] - [id number] Start: 12-19-2023 Screw Bone 18mm 3.5mm Self Drill Variable Angle [id number] - [id number] Start: 12-19-2023 Screw Bone 16mm 3.5mm Self Drill Variable Angle [id number] - [id number] Start: 12-19-2023 Screw Bone 16mm 3.5mm Self Drill Variable Angle [id number] - [id number] Start: 12-19-2023 Screw Bone 16mm 3.5mm Self Drill Variable Angle [id number] - [id number] Start: 12-19-2023 Screw Bone 16mm 3.5mm Self Drill Variable Angle [id number] - [id number] Start: 12-19-2023 Spacer Spinal 6m m Acis Medium Lordotic Proti 360 Sterile - [id number] Start: 12-19-2023 Sapcer Acis Pt36 0 Lord Std 7mm - [id number] Start: 12-19-2023 Goals Date Patient Goal Desired Activity /State Mental Status Date Assessment Result Facility 12-30-2023 Cognitive function Level Of Cons ciousness Awake;Alert;Appropriate;Follow s Commands [facility] Work Phone: 12-16-2023 Cognitive function Voice/Name [facility] Work Phone: 10-21-2023 Cognitive function Voice/Name [facility] Work Phone: 08-19-2023 Cognitive function Voice/Name [facility] Work Phone: 06-11-2023 Cognitive function Voice/Name [facility] Work Phone: 05-27-2023 Cognitive function Voice/Name [facility] Work Phone: 05-22-2023 Cognitive function Level Of Consciousness Sedated [facility] Work Phone: 05-22-2023 Cognitive function Patient Dylan jean-baptiste Person;Place;Time [facility] Work Phone: 05-13-2023 Cognitive function Voice/Name [facility] Work Phone: 05-01-2023 Cognitive function Awake [facility] Work Phone: 04-29-2023 Cognitive function Voice/Name [facility] Work Phone: Clinical Notes 05-08-2023 to 07-07-2024 Rachell Stoll Jr., HENRY - 07/07/2024 9:30 AM Teena Cantrell MA - 03/17/2024 10:15 AM LD Goddard - 03/17/2024 10:15 AM CJTJarad Vences MD - 01/29/2024 11:00 AM EDT Note Date & Type Note Facility 07-07-2024 History of Present illness Narrative 58 y/o RHD Iftikhar Mir is seen [facility]uated [facility]. Patient is status post anterior cervical decompression and fusion C5-7 with plate and cage construct completed for cervical myelopathy 12/19/2023. Clinically self reports 70% relief. Has no neck pain. He has been recently in therapy up there and [place] for his neck. He has subsequently stopped the pushing exercises as he feels that that was contributing to some increased cramping in the hands. His balance at this point is 50% improved. Feels that his balance at 1 point was 80-90% improved after his neck surgery. Once again denies any neck pain. That is nearly completely gone. He has had prior L4-5/L5-S1 laminectomy in the left. Has a history of severe L2/[address] Larry as discussed with the patient about further back surgery but patient at this point would like to hold off on that until next year/2024. Patient has a longstanding history of Holcomb's esophagitis. Patient last evaluated in clinic 03/17/[address] Mccrary. Patient has been utilizing cane in the right hand for the past 7 years. He is currently on disability. 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 He is not able to golf in the for the past 8 years. He is hoping to get back to gainful employment he had a light duty capacity after he gets his back surgery and relief of his leg symptoms. He was right anterior thigh symptoms he has chronic recurrent left leg pain down to the foot. Denies any bowel or bladder changes. Prior to surgery he was diagnosed with mono neuropathy of both arms idiopathic as well as polyneuropathy in the legs on an EMG. We do have his EMG records outside hospital from 2016 revealing left L5 radiculopathy. He has had a prior lumbar laminectomy [facility] in 2015 He has also been diagnosed with Holcomb's esophagitis. Scheduled for his annual upper GI scope in February. On omeprazole. Still can only walk for about 5 minutes due to urqz-vewujxu-ikdq-right leg pain. Appears the left leg symptoms are more down L4/5/S1 distribution right leg is more anterior thigh related to the L2-3 stenosis. He sits down and or bends forward for relief of his leg symptoms with walking. States that on day he had a near fall out in the garage the left foot get caught caught up. Fortunately the car was nearby and he primarily on his left shoulder. Did not his head or neck. Patient does not smoke cigarettes. Past Medical History: Diagnosis Date Anxiety Asthma Bipolar disorder Depression HTN (hypertension) Liver disease MADELEINE (obstructive sleep apnea) PTSD (post-traumatic stress disorder) Past Surgical History: Procedure Laterality Date FUSION ANTERIOR INTERBODY CERVICAL Midline 12/19/2023 Laterality: Midline; Surgeon: LD Mendenhall; Location[facility] MAIN OR FUSION ANTERIOR INTERBODY CERVICAL EACH ADDL INTERSPACEX [facility]line 12/19/2023 Laterality: Midline; Surgeon: LD Mendenhall; Location[facility] MA[facility] MONITORING NEUROPHYSIOLOGY INTRAOPERATIVE ADD-ON PX N/A 12/19/2023 Laterality: N/A; Surgeon: LD Mendenhall; Location: [facility] MAIN OR APPLICATION INTERBODY/INTERVERTEBRAL BIOMECHANICAL DEVICE ADD-ON PX Midline 12/19/2023 Laterality: Midline; Surgeon: LD Mendenhall; Location: [facility] MAIN OR INSERTION SPINAL INSTRUMENTATION ANTERIOR ADD-ON PX Midline 12/19/2023 Laterality: Midline; Surgeon: LD Mendenhall; Location: [facility] MAIN OR MICROSURGICAL TECHNIQUES W/ OPERATING MICROSCOPE ADD-ON PX N/A 12/19/2023 Laterality: N/A; Surgeon: LD Mendenhall; Location: [facility] MAIN OR LAMINECTOMY VERTEBRAL SEGMENT LUMBAR 02/2016 HERNIA REPAIR 2012 Current Outpatient Medications Medication Instructions Cholecalciferol (VITAMIN D-3 PO) 1 capsule, Oral, DAILY WITH LUNCH, Dose unknown at this time Citalopram (CELEXA) 20 mg, Oral, DAILY EVERY MORNING Cyclobenzaprine (FLEXERIL) 5 mg, Oral, EVERY 8 HOURS NEEDED Docusate (COLACE) 100 mg, Oral, 2 TIMES DAILY NEEDED Fenofibrate (TRICOR) 48 mg, Oral, EVERY EVENING hydroCHLOROthiazide (HYDRODIURIL) 25 mg, Oral, DAILY EVERY MORNING Lisinopril (PRINIVIL) 40 mg, Oral, DAILY EVERY MORNING LORazepam (ATIVAN) 1 mg, Oral, EVERY 6 HOURS NEEDED Metoprolol 50 MG tab regular release Take 1 tablet by mouth 2 times daily. naloxone 4 MG/0.1ML 1 spray, Nasal, ONCE, [place] into the nose as directed. Call 911. If no response in 2 minutes use a new nasal spray in other nostril. Repeat until help arrives. omega-3 acid ethyl esters (LOVAZA) 1 g, Oral, DAILY WITH LUNCH omeprazole (PRILOSEC) 20 mg, Oral, DAILY EVERY MORNING oxyCODONE (ROXICODONE) 5 mg, Oral, EVERY 8 HOURS NEEDED Pantoprazole (PROTONIX) 40 mg, Oral, DAILY vitamin E 400 Units, Oral, DAILY WITH LUNCH Allergies Allergen Reactions Amlodipine Palpitations Cymbalta [Duloxetine Hcl] History reviewed. No pertinent family history. Vitals: 07/07/24 0935 Pulse: 66 Temp: 97.7 F (36.5 C) SpO2: 96% BMI 27.98 Musculoskeletal exam: Anterior cervical incision well healed good voice quality noted today and normal conversational speech. Ambulates today with a cane in the right hand straight leg raise positive on the left no groin pain today with log rolling of the hips. Reflexes in the upper lowers are within normal limits Prince sign is absent able to place both arms above his head today. No calf tenderness swelling in the lowers. Arm and leg strength today 4/5 all major motor groups on bench testing. Negative Lhermitte's. No thoracic sensory level. Overall sagittal coronal spinal alignment with normal parameters. Radiographs: AP and lateral cervical radiographs were obtained interpreted. Stable appearance to his plate and cage construct noted C5-7 that failure migration. Assessment: -s/p C5-7 ACDF for myelopathy/stenosis/radiculopathy/ myelomalacia completed 12/19/2023 -L2/3 spinal stenosis with neurogenic claudication/ radiculopathy -s/p prior L4-5/L5-S1 lumbar laminectomy decompression -L5/S1 retrolisthesis 7 mm -MADELEINE on CPAP on setting of 8 -idiopathic neuropathy -L5/S1 advanced spondylosis -PTSD, BiPolar disorder Recommendations: -I have discussed the above findings today with the patient. -OARRs report reviewed. No red flags -prescription provided for gabapentin 100 mg to be taken as a membrane stabilizing agent. See if this will help with any of his lower extremity paresthesias/pain. In the past he was unable to tolerate higher doses such as 300 mg due to cognizant impairing side effects. -patient would like to give it further time and healing of the cervical spine prior to proceeding with any type of lumbar surgery. Prefers to have it completed next year. -patient will finish out his therapy. In the interim if his upper extremity cramping worsens then he will get back with us via telephone or [employer] message. He has been informed that the plain x-rays reveal solid fusion clinically he has virtually no neck pain. His gait changes may be on the basis of his severe L2/3 lumbar stenosis. However his upper extremity symptoms likely on the basis of myelomalacia and further neurologic healing/recovery should continue to experience symptoms that will improve/melt away. He has been informed he may indeed have long-term residual symptoms in the upper extremities hands. It May take 1.5 to 2 years to determine how much he will get in regards to long-term neurologic recovery. -patient to follow back up with Dr. Mccrary 10/07/2024 to discuss his lumbar surgery. Patient states he would like to have it prior to the springtime, ideally in October perhaps -all of his questions answered to satisfaction. He is amenable to this treatment algorithm M-Modal Voice Recognition System was used to compose patient's note. Attempts have been made to review dictation as it is transcribed, on occasion the spoken word may be misinterpreted by the technology, leading to omissions or inappropriate words or phrases. documented in this encounter [facility] 03-17-2024 History of Present illness Narrative This MA verified patients name and . Chief Complaint Patient presents with Follow up Visit Date of Surgery: 12/19/23 Procedure: ACDF C5-7 for cervical myelopathy, HPI: Iftikhar Fleming returns. his is now about 3 months s/p ACDF C5-7 for cervical myelopathy. he is doing well. his pain is well controlled. he is ambulatory without the use of an assistive-device. 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 he has not had an episode of urinary/bowel incontinence. he denies any fevers, chills or rigors. Denied any significant swallowing issues and is improving. His back and leg symptoms has been stable and states that he is not looking for any intervention at this time and wants to wait. Past medical history:I have reviewed and confirmed the past medical history in the chart. Medications: reviewed medication list in the chart Allergies: reviewed allergy section in the chart Review of Systems: Negative for chest pain and shortness of breath Review of all other systems is negative EXAM: There were no vitals taken for this visit. This is a well developed/well nourished 58 y.o.. y/o male, who does appear their stated age and was cooperative today in the office. Is alert, oriented x 3. There were no gait deficits observed. Incision - well healed RUE: 02/01 D/B/T/Wrst ext/Wrst flx/FF/FE/HI LUE: 02/01 D/B/T/Wrt ext/Wrst flx/FF/FE/HI RLE: 02/01 IP/H/Q/DF/PF/EHL LLE: 02/01 IP/H/Q/DF/PF/EHL Sensation intact to light touch and pinprick: BUE: C5-T1 BLE: L1-S1 2+ reflexes in BUE (biceps, triceps, brachioradialis) 2+ reflexes in BLE (patella, achilles) Negative Ortiz's BUE No clonus Babinski downgoing Seated SLR negative Toes/fingers warm, well perfused. IMAGING: X-rays cervical Spine (03/17/24 ): Stable hardware Assessment/Plan: 58 y.o. male with approximately 3 months Post-op ACDF C5-7 for cervical myelopathy,. Recovering well -activities as tolerated and should be limited by comfort. Avoid any aggressive bending, turning or twisting of neck -continue walking BID Q 30 min daily -no driving on narcotics - recommend physical therapy for neck and lower back and legs including core strengthening and balance training Follow-up: 3 months, with Rachell Gar in clinic or sooner if symptoms worsen Patient will need new X-rays at follow up visit: Yes Jose Mccrary MD Assistnat Professor of Clinical Orthopedics Division of Spine Surgery Department [place] [address] Parts/entire of this note was dictated via M*Modal using a microphone/Phone and there may be some remaining typographical/spelling/grammatical errors, in spite of my extensive editing. Please feel free to reach me back for any clarifications. documented in this encounter [facility] 01-29-2024 History of Present illness Narrative Chief Complaint Patient presents with Follow up Visit Date of Surgery: 12/19/23 Procedure: status post ACDF C5-7 HPI: Iftikhar Fleming returns. his is now about 6 weeks s/p ACDF C5-7. he is doing well. his pain is well controlled. he is ambulatory without the use of an assistive-device. Continues to have some very mild dysphagia with swallowing, but continuing to improve. he has not had an episode of urinary/bowel incontinence. he denies any fevers, chills or rigors. Past medical history:I have reviewed and confirmed the past medical history in the chart. Medications: reviewed medication list in the chart Allergies: reviewed allergy section in the chart Review of Systems: Negative for chest pain and shortness of breath Review of all other systems is negative EXAM: Pulse 69, temperature 97.2 F (36.2 C), height 1.791 m (5' 10.5), weight 81.6 kg (180 lb), SpO2 97%. This is a well developed/well nourished 58 y.o.. y/o male, who does appear their stated age and was cooperative today in the office. Is alert, oriented x 3. There were no gait deficits observed. Incision well healed RUE: 5/5 D/B/T/Wrst ext/Wrst flx/FF/FE/HI LUE: 5/5 D/B/T/Wrt ext/Wrst flx/FF/FE/HI RLE: 5/5 IP/H/Q/DF/PF/EHL LLE: 5/5 IP/H/Q/DF/PF/EHL Sensation intact to light touch and pinprick: BUE: C5-T1 BLE: L1-S1 2+ reflexes in BUE (biceps, triceps, brachioradialis) 2+ reflexes in BLE (patella, achilles) Negative Ortiz's BUE No clonus Babinski downgoing Seated SLR negative Toes/fingers warm, well perfused. IMAGING: No new imaging Assessment/Plan: 58 y.o. male with approximately 6 weeks Post-op status post ACDF C5-7 . Recovering well -no bending lifting twisting > 5lbs -ok to shower but no submersion -continue walking BID Q 30 min daily -no driving on narcotics Follow-up: 6 week(s) in clinic or sooner if symptoms worsen Patient will need new X-rays at follow up visit: yes Yimi Vences MD Orthopedic Surgery, PGY-4 I have personally seen and examined Iftikhar Fleming and reviewed the relevant images. Following my extensive edits, I agree with the clinical history, physical examination, and management plan detailed in the resident/Fellow's note. I have personally discussed the diagnosis and management with the patient. Jose Mccrary MD documented in this encounter [facility] 01-01-2024 History of Present illness Narrative 58 y/o RHD Iftikhar Perez is seen re-evaluated for his 2 week POV. Status post anterior cervical spinal cord decompression fusion C5-6, C6-7 with plate and cage/I factor construct completed for stenosis/myeloradiculopathy/myelom alacia 12/19/2023 with good postoperative early results. Has some intermittent symptoms down the left arm into the thumb and index. Has a known history of concentric moderate to severe stenosis L2/3. Clinically has sjrw-fuuxcnx-shxn-right leg associated symptoms with neurogenic claudication. Can walk about 5 minutes sits down for relief. Denies bowel bladder changes no fever or chills. Has some mild dysphagia which appears to be resolving. He had a normal meal today without any difficulties. Taking oxycodone 5 mg couple tablets daily in the process of weaning. Prior to surgery he was diagnosed with mono neuropathy of both arms idiopathic as well as polyneuropathy in the legs on an EMG. We do have his EMG records outside hospital from 2017 revealing left L5 radiculopathy. He has had a prior lumbar laminectomy [facility] in 2016 He has also been diagnosed with Holcomb's esophagitis. Scheduled for his annual upper GI scope in February. On omeprazole. Patient lives in [facility], just outside of [place] Patient reports that his hand strength is improved. Balance is unchanged. Arm pain much improved as well. States he has a prior history of liver abnormality incidental for tries to avoid acetaminophen. Typically takes 81 mg aspirin 2 tablets q.12 hours preop but has stopped them at this point due to cervical fusion to allow her early bone graft incorporation Past Medical History: Diagnosis Date Anxiety Asthma Bipolar disorder Depression HTN (hypertension) Liver disease MADELEINE (obstructive sleep apnea) PTSD (post-traumatic stress disorder) Past Surgical History: Procedure Laterality Date FUSION ANTERIOR INTERBODY CERVICAL Midline 12/19/2023 Laterality: Midline; Surgeon: Jose Mccrary MD, MBBS; Location: [facility] MAIN OR FUSION ANTERIOR INTERBODY CERVICAL EACH ADDL INTERSPACEX Midline 12/19/2023 Laterality: Midline; Surgeon: Jose Mccrary MD, MBBS; Location: [facility] MAIN OR MONITORING NEUROPHYSIOLOGY INTRAOPERATIVE ADD-ON PX N/A 12/19/2023 Laterality: N/A; Surgeon: Jose Mccrary MD, MBBS; Location: [facility] MAIN OR APPLICATION INTERBODY/INTERVERTEBRAL BIOMECHANICAL DEVICE ADD-ON PX [facility]line 12/19/2023 Laterality: Midline; Surgeon: Jose Mccrary MD, MBBS; Location: [facility] MAIN OR INSERTION SPINAL INSTRUMENTATION ANTERIOR ADD-ON PX Midline 12/19/2023 Laterality: Midline; Surgeon: Jose Mccrary MD, MBBS; Location: [facility] MAIN OR MICROSURGICAL TECHNIQUES W/ OPERATING MICROSCOPE ADD-ON PX N/A 12/19/2023 Laterality: N/A; Surgeon: Jose Mccrary MD, MBNAPOLEON; Location: [facility] MAIN OR LAMINECTOMY VERTEBRAL SEGMENT LUMBAR 02/2016 HERNIA REPAIR 2012 Current Outpatient Medications Medication Instructions Cholecalciferol (VITAMIN D-3 PO) 1 capsule, Oral, DAILY WITH LUNCH, Dose unknown at this time Citalopram (CELEXA) 20 mg, Oral, DAILY EVERY MORNING Cyclobenzaprine (FLEXERIL) 5 mg, Oral, EVERY 8 HOURS NEEDED Docusate (COLACE) 100 mg, Oral, 2 TIMES DAILY NEEDED Fenofibrate (TRICOR) 48 mg, Oral, EVERY EVENING hydroCHLOROthiazide (HYDRODIURIL) 25 mg, Oral, DAILY EVERY MORNING lisinopril (PRINIVIL) 40 mg, Oral, DAILY EVERY MORNING LORazepam (ATIVAN) 1 mg, Oral, EVERY 6 HOURS NEEDED Metoprolol 50 MG tab regular release Take 1 tablet by mouth 2 times daily. naloxone 4 MG/0.1ML 1 spray, Nasal, ONCE, [place] into the nose as directed. Call 911. If no response in 2 minutes use a new nasal spray in other nostril. Repeat until help arrives. omega-3 acid ethyl esters (LOVAZA) 1 g, Oral, DAILY WITH LUNCH omeprazole (PRILOSEC) 20 mg, Oral, DAILY EVERY MORNING oxyCODONE (ROXICODONE) 5 mg, Oral, EVERY 6 HOURS NEEDED vitamin E 400 Units, Oral, DAILY WITH LUNCH Allergies Allergen Reactions Amlodipine Palpitations Cymbalta [Duloxetine Hcl] No family history on file. Vitals: 01/01/24 1057 Pulse: 70 Temp: 97.4 F (36.3 C) SpO2: 95% BMI 25.46 Musculoskeletal exam: Left anterior cervical incision is well approximated Steri-Strips are in place good voice quality noted today and normal conversational speech. Upper lower extremity flexes within normal limits. Prince sign absent as is ankle clonus. Negative finger escape sign. Able to place both arms above his head today. C-spine range of motion is diminished in all planes difficulties at the far extreme as expected 50% normal at this point postop. Straight leg raise negative. No calf tenderness or swelling lowers. Ambulates today with the assistance of a cane left-hand. Radiographs: None obtained today. Assessment: -status post ACDF C5-7 for myelopathy/stenosis/radiculopathy/ myelomalacia with good early postoperative relief of neurologic symptoms completed 12/19/2023 -L2/3 spinal stenosis with neurogenic claudication/ radiculopathy -MADELEINE on CPAP 8mm/water -idiopathic neuropathy -L5/S1 advanced spondylosis Recommendations: -I have discussed the above findings today with the patient. He will follow up with surgeon 01/29/2024 cervical spine XOA -okay to shower no tub soaks no overhead activities no lifting more than 5 lbs -OAARs , no red flags. Small prescription provided for oxycodone primarily for restorative sleep -all of his questions answered to satisfaction. He is amenable to this treatment algorithm M-Modal Voice Recognition System was used to compose patient's note. Attempts have been made to review dictation as it is transcribed, on occasion the spoken word may be misinterpreted by the technology, leading to omissions or inappropriate words or phrases. documented in this encounter [facility] 12-20-2023 Hospital course Narrative Discharge Summary Name: Iftikhar Fleming Age: 58 y.o. Birthday: 1965 Admit Date: 12/19/2023 11:15 AM Discharge Date: 12/20/23 Discharge Time: Midday Discharge Unit: [facility] Admission Information Admitting Physician: Jose Mccrary MD, MBBS Discharge Information Discharge Physician: Jose Mccrary MD, MBBS Problem List Active Hospital Problems Diagnosis Cervical vertebral fusion Brief Summary of Hospital Course for Discharge Summary: Iftikhar Fleming is a 58 y.o. person with past medical history of anxiety, asthma, bipolar disorder, depression, HTN, liver disease, MADELEINE, PTSD, and body mass index 25.48 kg/m , who presented to [facility] with cervical myelopathy, osteoarthritis of cervical spine with myelopathy, spinal stenosis of cervical region, cervical disc disease. The patient elected to proceed with surgical intervention. The patient underwent the following procedure on 12/19/2023 by Jose Mccrary MD, LD: C5-7 ACDF. The patient tolerated the procedure well. Pain was controlled with oral pain medication. Home medications were also continued. Diet was advanced as tolerated. The patient was stable at discharge without any nausea or vomiting. The patient underwent evaluations with Physical Therapy and Occupational Therapy while hospitalized. Assessment proved stable. On day of discharge, the patient afebrile and hemodynamically stable, tolerating a diet with pain controlled on oral pain medication, mobilizing, and voiding spontaneously. Once approval was received, the patient was discharged in stable condition. Follow-up with Orthopedic Surgery is outlined in the discharge instructions. The patient was also instructed to follow-up with PCP outpatient. All other discharge instructions and follow-up information are in the patient After Visit Summary. Summary of last selected lab results and date obtained: Lab Results Component Value Date WBC 14.55 (H) 12/20/2023 HGB 13.6 12/20/2023 HCT 38.8 (L) 12/20/2023 PLATELET 201 12/20/2023 MCV 92.6 12/20/2023 Lab Results Component Value Date SODIUM 136 12/20/2023 POTASSIUM 4.0 12/20/2023 CHLORIDE 101 12/20/2023 CO2 26 12/20/2023 BUN 13 12/20/2023 CREATSERUM 0.71 12/20/2023 GLUCOSE 124 (H) 12/20/2023 Lab Results Component Value Date ALT 37 12/05/2023 AST 24 12/05/2023 ALKPHOS 75 12/05/2023 BILITOTAL 0.3 12/05/2023 Current Outpatient Meds: Medication List for when you go home START taking these medications Morning Afternoon Evening Bedtime As Needed Cyclobenzaprine 5 MG TABS Take 1 tablet by mouth every 8 hours as needed for Muscle spasms for up to 5 days. Commonly known as: FLEXERIL Docusate 100 MG CAPS Take 1 capsule by mouth 2 times daily as needed for Constipation. Commonly known as: COLACE naloxone 4 MG/0.1ML 1 spray by Nasal route once for 1 dose. [place] into the nose as directed. Call 911. If no response in 2 minutes use a new nasal spray in other nostril. Repeat until help arrives. Commonly known as: NARCAN oxyCODONE 5 MG TABS Take 1 tablet by mouth every 4 hours as needed for Moderate Pain or Severe Pain for up to 7 days. Commonly known as: ROXICODONE For diagnoses: Cervical vertebral fusion Last time this was given: 10 mg on December 20, 2023 10:47 AM CONTINUE taking these medications Morning Afternoon Evening Bedtime As Needed Citalopram 20 MG TABS Take 1 tablet by mouth daily every morning. Commonly known as: CELEXA Fenofibrate 48 MG TABS Take 1 tablet by mouth every evening. Commonly known as: TRICOR hydroCHLOROthiazide 25 MG TABS Take 1 tablet by mouth daily every morning. Commonly known as: HYDRODIURIL lisinopril 40 MG TABS Take 1 tablet by mouth daily every morning. Commonly known as: PRINIVIL LORazepam 1 MG TABS Take 1 tablet by mouth every 6 hours as needed for Anxiety. Commonly known as: ATIVAN Metoprolol 50 MG tab regular release Take 1 tablet by mouth 2 times daily. Commonly known as: LOPRESSOR omega-3 acid ethyl esters 1 g CAPS Take 1 capsule by mouth daily with lunch. Commonly known as: LOVAZA omeprazole [address] capsule Take 1 capsule by mouth daily every morning. Commonly known as: PRILOSEC VITAMIN D-3 PO Take 1 capsule by mouth daily with lunch. Dose unknown at this time vitamin E 400 units CAPS Take 1 capsule by mouth daily with lunch. STOP taking these medications FLUoxetine 10 MG CAPS Commonly known as: PROZAC Sucralfate 1 g TABS Commonly known as: CARAFATE Upcoming Appointments (up to five)-Some appointments for Medical Center outpatient clinics or diagnostic testing locations are not displayed below Provider Department Dept Phone 01/01/2024 11:00 AM Rachell Stoll Jr. [facility] Outpatient Care [facility] Arrive at: Arrive to 1st Floor, [facility] Spine Center Registration Desk [phone] 01/29/2024 11:00 AM Jose Mccrary Sp[facility] Outpatient Care [facility] Arrive at: Arrive to 1st Floor, [facility] Spine Center Registration Desk [phone] documented in this encounter [facility] 12-20-2023 History of Present illness Narrative Iftikhar Fleming is a 58 y.o. male 1 Day Post-Op s/p C5-7 ACDF. Patient sitting at side of bed, NAD, spouse at bedside. Pt denies fever, SOB, CP, or new upper / lower extremity numbness / tingling. Denies N/V. Tolerating diet. Denies flatus. Voiding spontaneously. Reports post-op surgical pain controlled with current regimen. Reports he feels there has had some improvement in BUE post-operatively, he feels his hands are stronger. Exam stable. Anterior cervical dressing CDI. All needs / questions addressed. Planning to discharge home, today. AVS reconciled this morning & oxycodone script provided by Harshad Arciniega MD. Printed prescription in folder, RN aware. I sent prescription for flexeril to preferred pharmacy. Vitals: 12/20/23 1047 BP: 189/81 Pulse: Resp: Temp: SpO2: Lab Results Component Value Date WBC 14.55 (H) 12/20/2023 HGB 13.6 12/20/2023 HCT 38.8 (L) 12/20/2023 PLATELET 201 12/20/2023 MCV 92.6 12/20/2023 Lab Results Component Value Date SODIUM 136 12/20/2023 POTASSIUM 4.0 12/20/2023 CHLORIDE 101 12/20/2023 CO2 26 12/20/2023 BUN 13 12/20/2023 CREATSERUM 0.71 12/20/2023 GLUCOSE 124 (H) 12/20/2023 Post-op education included but was not limited to: No bending, lifting (more than 5-10 lbs), or twisting. Opioid risks - including risk for addiction, respiratory depression, sedation, confusion, constipation. Constipation prevention. Driving restrictions. DVT prevention. Incisional dressing instructions. Patient / caregiver to perform hand hygiene before changing dressing. Showering instructions. Do not submerse incision until cleared in the office. Do not apply creams, lotions, or ointments to your incision until discussed with your surgeon. Do not take NSAIDs (Motrin, Advil, Ibuprofen, etc.) until cleared by your surgeon, possibly at 10-12 weeks. Do not take tobacco / nicotine products. Discussed scheduled follow up appointments. Complexity. Any conditions listed below are present on admission unless otherwise specified. . HTN - Discussed monitoring blood pressure at home. Discussed potential for post-op pain medications / flexeril to impact blood pressure. Will receive metoprolol before discharge. Discussed folding back in bp meds. VIRY Hickman Orthopaedic Surgery Pager [phone] Acute Occupational Therapy Evaluation Prior to Admission AM-PAC Score: PRIOR LEVEL AM-PAC Activity Raw Score: 24 Current AM-PAC score(s): CURRENT AM-PAC Activity Raw Score: 24 Based on the above AM-PAC score(s) and OT clinical judgment, discharge destination recommendation is: Home Barriers to discharge home: Patient needs assistance with IADLs (see note below) (PRN ADL assist) Mobility equipment available at home: straight cane, grab bars ADL equipment available at home: shower chair Equipment recommendations for discharge: none Current therapy frequency recommendation(s) in acute: no therapy warranted Precautions and Weightbearing Status: OT Existing Precautions/Restrictions: fall, spinal No critical lines at this time Patient Safety Communication Prior to Visit: Nursing Current brace/orthoses: (none ordered) Subjective: Pt agreeable to OT session and getting up and moving Pain: General Pain Documentation (Adult, OB, Peds) Presence of Pain: complains of pain/discomfort Pain Location: neck DVPRS (Defense and Veterans Pain Rating Scale) DVPRS: Rest: 6- moderate pain DVPRS: Activity: 6- moderate pain Home Setting Residence: House Lives With: spouse First floor setup: bedroom, walk-in shower Number of stairs to enter home: 4 Number of stairs in home: 0 Mobility Equipment Available: straight cane, grab bars ADL Equipment Available: shower chair Home Environment Details: can assist as needed Previous Level of Function Prior level ADL Overview: Independent with all ADLs Dominant Hand: Right Bed Mobility/Transfers: independent Ambulation Skills: independent Assistive Device: straight cane Level of Ambulation: community Prior Level of Function Details: pt drives, no falls recently IADL History IADLs: independent Objective/Observation: Vitals/Vitals Responses to Treatment: VSS O2 Device: room air Vision Screen Currently wearing corrective lenses: Yes Visual Impairments Observed?: No Speech Speech: no gross deficits noted Hearing Hearing: no gross deficits noted Cognition Overall Cognitive Status: Within Functional Limits Arousal/Alertness: Appropriate responses to stimuli ADLs: ADL Assessment: LE Dressing Deficit ADL Anticipated Performance (ADLs not directly observed this session): Eating, Grooming, Bathing, UE Dressing, Toileting Eating Assistance: Independent Grooming Assistance: Independent Bathing Assistance: Modified independent Bathing Location: seated on shower chair UE Dressing Assistance: Independent LE Dressing Assistance: Modified independent LE Dressing Intervention/Details: Educated on figure four technique and pt returns demonstration. pt also educated on use of this technique for bathing Toilet Assistance: Modified independent Extremity Assessments: RUE Assessment RUE Assessment: Within Functional Limits LUE Assessment LUE Assessment: Within Functional Limits Balance: Sitting Balance Static Sitting-Level of Assistance: Independent Dynamic Sitting-Level of Assistance: Independent Standing Balance Static Standing-Level of Assistance: Independent Dynamic Standing-Level of Assistance: Independent Neuro: Sensation Sensation Comments: baseline LLE sensation impairments but reports not related to spine and intact to light touch Gross Coordination Gross Coordination: bilat UE intact Fine Motor Coordination Left Hand, Manipulation of Objects: normal performance Right Hand, Manipulation of Objects: normal performance Skin and Edema: Skin Integrity Skin Integrity Description: Surgical incision Mobility Assessment: Supine to Sit Mobility Candler Level: Supine->Sit: supervision Bed Features/Set-up: Supine->Sit: Flat Skilled Rationale: Verbal cues, Positioning, Technique of activity Skilled Intervention/Details: Supine->Sit: cues for log roll technique and breathing strategies Sit to Supine Mobility Candler Level: Sit->Supine: supervision Bed Features/Set-up: Sit->Supine: Flat Skilled Rationale: Verbal cues Skilled Intervention/Details: Sit->Supine: required cues for reverse log roll vs extension of spine back to supine Transfer Assessment: Sit to Stand Transfer Candler Level: Sit->Stand: independent Assistive Device: Sit->Stand: gait belt, straight cane Stand to Sit Transfer Candler Level: Stand->Sit: independent Assistive Device: Stand->Sit: gait belt, straight cane Functional Mobility: Functional Mobility Candler Level: Functional Mobility/Gait: modified independence Assistive Device: Functional Mobility/Gait: gait belt, straight cane Functional Mobility Distance: Distance needed for common household mobility Functional Mobility Deficits: Pain Outcome Score(s): CURRENT [facility] Daily Activity Inpatient Short Form Putting on/Taking Off Lower Body Clothin - No Assistance Bathin - No Assistance Toiletin - No Assistance Putting on/Taking Off Upper Body Clothin - No Assistance Groomin - No Assistance Eatin - No Assistance CURRENT [facility] Activity Raw Score: 24 CURRENT -[facility] Activity Functional Limitation/Modifier: 0.00% Currently Impaired in Daily Activity - Interventions: Educated pt on spinal precautions, log roll, home discharge planning including equipment recommendations, removing throw rugs and other tripping hazards, modifying home ADL/IADL techniques to maximize independence, having someone place needed items at waist height to reduce bending and reaching, etc. Pt and engaged in conversation and verbalized understanding. Assessment & Plan: Patient was admitted for C5-7 ACDF and seen for therapy evaluation related to pain and spinal precautions affecting I in ADL/IADLs. Exam findings include impairments in: pain. These impairments contribute to occupational performance limitations including home management tasks, driving/transportation. The following factors impact the plan of care: none Patient Instruction/Education this session: Learners: Patient, Spouse Education provided: Discharge recommendations, Home management activities, Role of this discipline (spinal precautions) Teaching method: Verbal Education/Instruction Learner response: Applies knowledge Learning considerations: No barriers/ready to learn Plan for next session: No further skilled OT services warranted. OT to disch pt at this time Goal: Pt will demonstrate understanding of modified ADL/IADL techniques to adhere to spinal precautions and maximize I in ADL/IADLs for return home safely- goal met OT treatment consisted of the following to work and progress towards the above goal(s): OT Evaluation and Treatment Time OT Evaluation (Low) Time Entry: 14 Evaluating Therapist: Melvi Whiting OT Additional Details: OT Co-Eval/Treatment Information Co-evaluation/co-treatment performed?: No simultaneous skilled care performed OT Evaluation Complexity Occupational Profile and Client History: Moderate - expanded history Assessment of Occupational Performance: Low (1-3 performance deficits) Clinical Decision/Performance Deficits: Low (problem-focused assessments w/limited treatment options) Time In: 938 Time Out: 952 Total Visit Time: 14 minutes Total Treatment Time (skilled, billable minutes): 14 minutes PPE used during patient interaction: facemask, gloves Patient location at end of session: bed with head of bed elevated Alarms on at end of session: none Needs in reach. Upon discontinuation of Acute Care Occupational Therapy Services or patient discharge from the hospital this note represents the current Occupational Therapy Discharge Summary. Acute Physical Therapy Evaluation Prior to Admission AMPA score(s): PRIOR LEVEL AM-PAC Mobility Raw Score: 24 Current AM-PAC score(s): CURRENT AM-PAC Mobility Raw Score: 24 Based on the above AM-PAC score(s) and PT clinical judgment, patient is a good candidate for discharge to Home Barriers to discharge home: None Mobility equipment available at home: straight cane, grab bars ADL equipment available at home: shower chair Equipment needed for discharge: none Current therapy frequency recommendation in acute: Therapy Frequency: no therapy warranted Activity Recommendations for outside of rehab session: up ad rafi Precautions and Weightbearing Status: Existing Precautions/Restrictions: spinal (PIV) Patient Safety Communication Prior to Visit: Nursing Subjective: Im feeling good! Pain: General Pain Documentation (Adult, OB, Peds) Presence of Pain: complains of pain/discomfort Pain Location: neck DVPRS (Defense and Veterans Pain Rating Scale) DVPRS: Rest: 2- mild pain DVPRS: Activity: 2- mild pain Home Setting Residence: House Lives With: spouse First floor setup: bedroom, walk-in shower Number of stairs to enter home: 4 Number of stairs in home: 0 Mobility Equipment Available: straight cane, grab bars ADL Equipment Available: shower chair Previous Level of Function Prior level ADL Overview: Independent with all ADLs Bed Mobility/Transfers: independent Ambulation Skills: independent Assistive Device: straight cane Level of Ambulation: community Prior Level of Function Details: pt drives, no falls recently Objective/Observation: Vitals/Vitals Responses to Treatment: pt reporting no dizziness, lightheadedness or weakness during functional mobility today Cognition Overall Cognitive Status: Within Functional Limits Arousal/Alertness: Appropriate responses to stimuli Orientation Level: Oriented X4 Following Commands: Follows all commands and directions without difficulty Safety Judgment: Good awareness of safety precautions Awareness of Errors: Good awareness of errors made Deficits: Fully aware of deficits Attention Span: Appears intact Memory: Appears intact Problem Solving: Able to problem solve independently Cognition Comments: good safety awareness with precautions, appropriate safety questions asked Vision Screen Currently wearing corrective lenses: No Visual Impairments Observed?: No Speech Speech: no gross deficits noted Hearing Hearing: no gross deficits noted Extremity Assessments: RUE Assessment RUE Assessment: Within Functional Limits LUE Assessment LUE Assessment: Within Functional Limits RLE Assessment RLE Assessment: Exceptions to WFL Strength RLE R Hip Flexion: 3/5 R Knee Flexion: 3+/5 R Knee Extension: 5/5 R Ankle Dorsiflexion: 5/5 R Ankle Plantar Flexion: 5/5 LLE Assessment LLE Assessment: Exceptions to WFL Strength LLE L Hip Flexion: 4/5 L Knee Flexion: 5/5 L Knee Extension: 5/5 L Ankle Dorsiflexion: 5/5 L Ankle Plantar Flexion: 5/5 Sensation Overall Sensation: Intact Edema Edema: none noted Mobility Assessment: Supine to Sit Mobility Candler Level: Supine->Sit: independent Bed Features/Set-up: Supine->Sit: Flat Skilled Rationale: Maintain precautions Skilled Intervention/Details: Supine->Sit: pt educated on log roll and precaution adherence with good integration when performing task Sit to Supine Mobility Candler Level: Sit->Supine: not tested Balance: Sitting Balance Static Sitting-Level of Assistance: Independent Dynamic Sitting-Level of Assistance: Independent Standing Balance Static Standing-Level of Assistance: Independent Dynamic Standing-Level of Assistance: Independent Transfer Assessment: Sit to Stand Transfer Candler Level: Sit->Stand: independent Assistive Device: Sit->Stand: gait belt, straight cane Stand to Sit Transfer Candler Level: Stand->Sit: independent Assistive Device: Stand->Sit: gait belt, straight cane Gait/Functional Mobility: Gait Assessment Candler Level: Gait: independent Assistive Device: Gait: gait belt, straight cane Ambulation Distance (Feet): 150 Gait Deviations Identified: wide base of support Skilled Intervention/Details - Gait: functional gait pattern despite wide TINY Stairs: Stairs Assessment Candler Level: Stair Negotiation: independent Assistive Device: Stair Negotiation: gait belt, straight cane Number of stairs: 12 Skilled Intervention/Details - Stairs: reciprocal pattern with R rail while ascending, step to L leading pattern with L rail while descending Outcome Score(s): 5X Sit to Stand Test recorded time: 12.26 seconds Geriatrics Vestibular Disorders Parkinsons Disease > or = 12 seconds: further fall assessment needed1 > 15 seconds: fall risk3 > 16 seconds: fall risk4 > 15 seconds: recurrent falls2 1TieBeatriz yancey, Ye HBrendan, et al. (2008). The comparative ability of eight functional mobility tests for predicting falls in community-dwelling older people. Age and Ageing 37(4): 430-435. 2BBrandie torres, Janette Daniels, et al. (2010). A simple clinical scale to stratify risk of recurrent falls in community-dwelling adults aged 65 years and older. Physical Therapy 90(4): 550-560. 3BBrandie torres, Abdias Landrum, et al. (2008). Five times sit to stand test is a predictor of recurrent falls in healthy community-living subjects aged 65 and older. Journal of the [employer] Geriatrics [employer] 56(8): 9858-4427. 4DJacob estrada, Beatriz Villegas, et al. (2011). Five times uxm-hx-ttoko test performance in Parkinson's disease. Arch Phys Med Rehabil 92(9): 0760-0513. CURRENT [facility] Basic Mobility Inpatient Short Form Turning over in bed: 4 - No Assistance Moving from lying on back to sittin - No Assistance Moving to and from bed to chair: 4 - No Assistance Sitting/standing from chair: 4 - No Assistance Walk in hospital room: 4 - No Assistance Climbing 3-5 steps with a railin - No Assistance CURRENT [facility] Mobility Raw Score: 24 CURRENT AM-PAC Mobility Functional Limitation: 0.00% Impaired in Basic Mobility Assessment & Plan: Patient was admitted for C5-[address] Mccrary on 12/19/23 and seen for therapy evaluation related to homegoing needs, precaution education. Exam findings include impairments in: Other (see comments) (none). These impairments contribute to functional limitations including . pt demonstrating independent mobility with all tasks today and demonstrates appropriate safety awareness with precautions and pain management. All questions considering homegoing answered with safety recommendations in place. Pt does not require skilled PT while in house 11/01 this Current clinical presentation is Stable - unchanging or predictable (Low). Patient history factors impacting Plan Of Care include Cervical myelopathy, Osteoarthritis of cervical spine with myelopathy, Spinal stenosis, cervical region, Gastroesophageal reflux disease, unspecified whether esophagitis present, Cervical disc disease, MADELEINE (obstructive sleep apnea), Essential hypertension, Prediabetes , Hereditary hemochromatosis, Hypertriglyceridemia. Patient will benefit from skilled physical therapy to address these impairments, functional limitations, and participation restrictions and has rehab potential to achieve therapy goals. Patient Instruction/Education this session: Learners: Patient, Spouse Education provided: Activity outside of therapy, Bed mobility, Discharge recommendations, Pain management, Precautions/weight bearing status, Safety Teaching method: Verbal Education/Instruction Learner response: Applies knowledge, States/Identifies/Teaches back Learning preferences: Auditory Learning considerations: No barriers/ready to learn Plan for next session: Pt discharing from PT GOALS Pt will demonstrate low fall risk score on 5xSTS test with score < 15 seconds - MET PT treatment consisted of the following to progress towards the above goal(s): PT Evaluation and Treatment Time PT Evaluation (Low) Time Entry: 16 Evaluating Therapist: ANT Valdovinos Additional Details: PT Co-Eval/Treatment Information Co-evaluation/co-treatment performed?: No simultaneous skilled care performed Evaluation Complexity Components History: Moderate (1-2 personal factors and/or comorbidities) Body Systems Review: Low (Addressing 1-2 elements) Clinical Presentation: Stable - unchanging or predictable (Low) Clinical Decision Making: Time In: 735 Time Out: 0752 Total Visit Time: 16 minutes Total Treatment Time (skilled, billable minutes): 16 minutes Assisted by during session: RIOS Rojas PPE used during patient interaction: gloves Patient location at end of session: toilet, RN aware Alarms on at end of session: none, RN aware Needs in reach. Upon discontinuation of Acute Care Physical Therapy Services or patient discharge from the hospital this note represents the current Physical Therapy Discharge Summary. Associated attestation - Bob Medel, PT - 12/20/2023 9:20 AM EDT I agree with the PT student note and have made revisions as needed. Bob Medel PT, DPT License # [id number] Upon discontinuation of Acute Care Physical Therapy Services or patient discharge from the hospital this note represents the current Physical Therapy Discharge Summary. Orthopaedic Spine Surgery Progress Note: Iftikhar Fleming is a 58 y.o. male who is 1 Day Post-Op from C5-[address] Mccrary. Last 24 Hours No acute events overnight. Patient states that pain is well controlled. Denies new symptoms of numbness, tingling, or weakness. Vitals Vitals: 12/20/23 0304 BP: 105/51 Pulse: 68 Resp: 16 Temp: 98.2 F (36.8 C) SpO2: 95% Physical Exam GEN: AOx3, resting in bed, NAD HEENT: NCAT, PERRLA, EOMI CV: normotensive LUNGS: non-labored breathing Spine Exam Dressing CDI, HV in place holding suction Neuro: Upper Extremity Strength: Right Left Deltoids C5 5/5 5/5 Biceps C6 5/5 5/5 Wrist Extensors 5/5 5/5 Triceps C7 5/5 5/5 Finger Flexors C8 5/5 5/5 First Dorsal Interossei 5/5 5/5 Lower Extremity Strength: Right Left Hip Flexors L2 5/5 5/5 Quadriceps L3 5/5 5/5 Anterior Tibialis L4 5/5 5/5 EHL L5 5/5 5/5 Hamstrings 5/5 5/5 Gastrocsoleus S1 5/5 5/5 Sensation to light touch in the upper and lower extremities is grossly intact. Laboratory Studies Lab Results Component Value Date WBC 14.55 (H) 12/20/2023 HGB 13.6 12/20/2023 HCT 38.8 (L) 12/20/2023 PLATELET 201 12/20/2023 MCV 92.6 12/20/2023 Lab Results Component Value Date SODIUM 136 12/20/2023 POTASSIUM 4.0 12/20/2023 CHLORIDE 101 12/20/2023 CO2 26 12/20/2023 BUN 13 12/20/2023 CREATSERUM 0.71 12/20/2023 GLUCOSE 124 (H) 12/20/2023 Lab Results Component Value Date INR 1.0 12/05/2023 PT 12.7 12/05/2023 Imaging/Cultures/Drains New Imaging: Cervical spine plain films pending Assessment Iftikhar Fleming is a 58 y.o. male who is 1 Day Post-Op S/P C5-7 Plan Activity: tolerated Antibiotics: Ancef for 24 hours postoperatively or while drain is in place Blood: Hemoglobin, Glucose control with goal of <120 Brace: None Cultures: Diet: Liquid diet and progress to regular diet Drain: Hemovac drain sewn in place, monitor output Dressing: Island, change POD2 DVT Prophylaxis: SCD's Exercise: IS 10x/hr while awake, PT for mobilization (w/ or w/o walker TID), (walking QID) Peres: None Pain Regimen: Multimodal Xrays: AP/Lateral cervical spine standing Dispo: Anticipate discharge home today Follow-up: Follow up with Dr. Mccrary team 2 weeks from surgery for wound check Harshad Arciniega MD Orthopaedic Spine Fellow documented in this encounter [facility] 12-19-2023 Nurse Note Patient arrived at this time. Alert and oriented x 4. Noted small amount of shadow drainage on anterior neck dressing. Patient oriented to room, call light and restroom. [facility] Miscellaneous Notes Patient arrived at this time. Alert and oriented x 4. Noted small amount of shadow drainage on anterior neck dressing. Patient oriented to room, call light and restroom. Iftikhar Fleming ([id number]) PRE OPERATIVE DIAGNOSIS Cervical myelopathy [G95.9] Osteoarthritis of cervical spine with myelopathy [M47.12] Spinal stenosis of cervical region [M48.02] Cervical disc disease [M50.90] POST OPERATIVE DIAGNOSIS Cervical myelopathy [G95.9] Osteoarthritis of cervical spine with myelopathy [M47.12] Spinal stenosis of cervical region [M48.02] Cervical disc disease [M50.90] DATE OF SURGERY: 12/19/2023 TITLE OF OPERATION: 1. Anterior cervical diskectomy and fusion C5-C6 and C6-C7. 2. Use of interbody cages at C5-C6 and C6-C7 disc spaces 3. Use of anterior cervical plate and screws instrumentation C5-C7 4. Use of allograft ifactor 5. Use of intra-operative fluoroscopy. 6. Use of intra-operative neuro-monitoring SURGEON: Jose Mccrary MD MOLECULAR SPECTROSCOPIST: - Harshad Arciniega MD , Fellow ESTIMATED BLOOD LOSS: 20 mL. DRAINS: 10F COUNT: Correct at the end of the case. COMPLICATIONS: None. IMPLANTS: DePuy Coda Plate and screws. ProTi cages, ifactor Implant Name Type Inv. Item Serial No. Facilitator Lot No. LRB No. Used Action SCREW BONE 18MM 3.5MM SELF DRILL VARIABLE ANGLE [id number] - [id number] SCREW BONE 18MM 3.5MM SELF DRILL VARIABLE ANGLE [id number] JandJ/[employer]PU[employer] 12/19/23 N/A 1 Implanted PLATE BONE 30MM 2 LEVEL [id number] - [id number] PLATE BONE 30MM 2 LEVEL [id number] JandJ/[employer]PU[employer] 12/19/23 N/A 1 Implanted SCREW BONE 18MM 3.5MM SELF DRILL VARIABLE ANGLE [id number] - [id number] SCREW BONE 18MM 3.5MM SELF DRILL VARIABLE ANGLE [id number] JandJ/DEPUY 12/19/23 N/A 1 Implanted SCREW BONE 16MM 3.5MM SELF DRILL VARIABLE ANGLE [id number] - [id number] SCREW BONE 16MM 3.5MM SELF DRILL VARIABLE ANGLE [id number] JandJ/DEPU[employer] 12/19/23 N/A 1 Implanted SCREW BONE 16MM 3.5MM SELF DRILL VARIABLE ANGLE [id number] - [id number] SCREW BONE 16MM 3.5MM SELF DRILL VARIABLE ANGLE [id number] JandJ/DEPUY 12/19/23 N/A 1 Implanted SCREW BONE 16MM 3.5MM SELF DRILL VARIABLE ANGLE [id number] - [id number] SCREW BONE 16MM 3.5MM SELF DRILL VARIABLE ANGLE [id number] JandJ/DEPUY 12/19/23 N/A 1 Implanted SCREW BONE 16MM 3.5MM SELF DRILL VARIABLE ANGLE [id number] - [id number] SCREW BONE 16MM 3.5MM SELF DRILL VARIABLE ANGLE [id number] JandJ/DEPUY 12/19/23 N/A 1 Implanted SPACER SPINAL 6MM ACIS MEDIUM LORDOTIC PROTI 360 STERILE - [id number] SPACER SPINAL 6MM ACIS MEDIUM LORDOTIC PROTI 360 STERILE JandJ/DEPUY [id number] N/A 1 Implanted SAPCER ACIS PT360 LORD STD 7MM - [id number] SAPCER ACIS PT360 LORD STD 7MM JandJ/DEPUY [id number] N/A 1 Implanted SUBSTITUTE BONE GRAFT 2.5CC ALLOGRAFT PUTTY SYRINGE I FACTOR - [id number] Tissue SUBSTITUTE BONE GRAFT 2.5CC ALLOGRAFT PUTTY SYRINGE I FACTOR [employer] [id number] N/A 1 Implanted INDICATIONs: Cervical spondylosis with stenosis, worsening myelopathy. Patient failed conservative treatment without improvement of symptoms. Patient elected to have cervical decompression and fusion as a definitive treatment plan. Risks, alternatives, and benefits were discussed with the patient in detail. The natural history of the disease was discussed. Risks and benefits of surgical vs. nonsurgical options were discussed with the alternative options. Risks of the procedure including but not limited to, infection, bleeding, hematoma formation, vocal cord paralysis, hoarseness, dysphagia, mild or severe, transient or permanent to the extent of need of feeding tube, possibility of no improvement, neurological weakness, catastrophic complications to the extent of complete and permanent paralysis, hardware failure, adjacent segment degeneration, and the need for revision or repeat surgery, risk of anesthesia reaction, risk of medical complications, and risk of were all discussed in details. The plan is to perform at C5-C7 anterior cervical diskectomy and instrumented fusion. PROCEDURE: The patient Iftikhar Fleming MRN. [id number] was met in the preoperative holding area. The surgical site was marked. The consent form was reviewed and the patient was transferred to operating room. [place] protocol was performed and general anesthesia with endotracheal intubation was performed without any complications. IV antibiotics were started prior to skin incision. SCDs were applied to lower extremity for DVT prophylaxis. The patient was positioned supine onto the OR table. The patient's shoulders and arms were tucked by their side, and the shoulders were taped down to the table to clear the cervical spine. Neuromonitoring team placed their leads, and baseline signals were obtained and deemed reliable and detectable from all extremities. The anterior neck was prepped and draped in sterile usual fashion and the skin was marked overlying the levels to be operated on under fluoroscopy. A left transverse skin incision was made along the medial border of the left sternocleidomastoid muscle using a #15 blade. The dissection was carried down to the level of platysma, which was incised horizontaly and the plane was developed between the sternocleidomastoid laterally and strap muscles medially and more deeply between the carotid sheath laterally and the tracheoesophageal complex medially. The deep prevertebral fascia was identified, was dissected using peanut dissectors, exposing the anterior longitudinal ligament. Hemostasis was confirmed using bipolar and monopolar electrocautery. Intraoperative fluoroscopy confirmed the levels to be operated on, using a bent spinal needle marker. Bilateral subperiosteal dissection was carried out under the longus colli muscles then the Trim line retractor blades were placed medio-laterally after lifting off the longus coli muscles from the anterolateral aspects of the vertebral bodies. Dingle pins were placed anteriorly through the vertebral bodies above and below the C6-7 disc space and gentle distraction was carried sequentially, across thses levels. Severe hypertrophic anterior osteophytes were noted at C5-6 and C6-7 levels and were removed using pituitary and rongeurs. For each intervertebral level, diskectomy was begun using an annulotomy knife (#11 blade). Pituitary rongeurs, Kerrison rongeurs as well as a Lopez elevators and curettes were used to perform a complete diskectomy at the C6-7 level. Bilateral foraminotomy was also performed using #1, #2 Kerrison rongeurs. The posterior longitudinal and posterior disc osteophyte complex was excised and removed exposing the ventral aspect of the cervical dura. Nerve hooks and curettes were used to assist in elevating and the posterior longitudinal and hypertrophic posterior disc osteophyte complex from dura. On completion, excellent spinal cord and nerve root decompression was ensured at each levels. Once hemostasis was secured, I then set out to ensure perfectly rectangular spaces with the drill at both levels using an AM-8 bit. Each space was thereafter sized and an appropriately-sized lordotic interbody cage was chosen and tamped in, with the distraction posts still in place, so that it became flush with the anterior margin of the respective vertebral bodies. Each cage (ProTi) was pre-filled in its center with ifactor. At the C6-7 level, a 7 mm lordotic cage was positioned. As well, I ensured that the anterior osteophytes over these bodies were drilled away so that the entire anterior vertebral line was smooth The distraction posts were then removed and I confirmed that the grafts were fitted very tightly as they could not be dislodged whatsoever with a large nerve hook.The same procedure was repeated at C5-6 levels with interbody cages placed following appropriate diskectomies and foraminotomies. At the C5-6 level, a 6 mm lordotic interbody cage was positioned. The entire wound was thoroughly irrigated. The cervical plate was measured and placed carefully in good alingement and staying away as much as possible from the adjacent unfused discs. A 30-mm Depuy Coda plate was ultimately chosen and initially held in place into the C6 vertebral body using a temporary pin. Fourteen millimeter trajectories were initially drilled in the appropriate orientation over all the holes and self-tapping screws were, thereafter, placed at each position in the correct orientation into the C5, C6 and C7 vertebral bodies with carefull attention no to violate any soft tissue. For the C5 and C6 vertebral body, 16 mm screws while for C7, 18 mm screws were positioned. Good bony purchase was achieved throughout and the adequacy of the trajectories and screw lengths were confirmed using AP and lateral fluoroscopy and placed. The locking mechanism was thereafter activated for all 6 screws and the plate was tightly in place. A final AP- lateral fluoroscopy confirmed good positioning of the hardware. The wound was again thoroughly irrigated with few bulbs of saline and the wound examined for evidence of any bleeding small vessels. Meticulous hemostasis was ensured though a 10 F drain was put. Following confirmation of meticulous hemostasis, we set out to close the wound in the usual layers starting with a number of interrupted inverted 2-0 Vicryl sutures for the platysma and subcutaneous tissues followed by 3-0 Vicryl inverted interrupted sutures for the superficial layer. Finally, a running 3-0 Stratafix subcuticular suture was used for close reapproximation of the skin. The incision was cleaned, Steristrips applied, followed by a dry sterile occlusive dressing. The patient appeared to tolerate the entire procedure well and there were no complications. Throughout the case and at the end of the case the neuromonitoring signals remained stable and similar to baseline, without any significant or sustained changes. The patient was then extubated without any complication, and was transferred to the hospital bed. A brief neurological examination revealed antigravity power, as baseline and pre-op, over all four extremities. DISPOSITION: The patient was transferred to PACU in hemodynamically stable condition. ATTESTATION: I was present throughout the entire case and performed the naik elements of the surgery. 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] Spinal stenosis of cervical region [M48.02] Cervical disc disease [M50.90] PROCEDURE PERFORMED Procedure(s) (LRB): FUSION ANTERIOR INTERBODY CERVICAL C5-7 (Midline) FUSION ANTERIOR INTERBODY CERVICAL EACH ADDL INTERSPACE ADD-ON PX (Midline) MONITORING NEUROPHYSIOLOGY INTRAOPERATIVE ADD-ON PX (N/A) APPLICATION INTERBODY/INTERVERTEBRAL BIOMECHANICAL DEVICE ADD-ON PX (Midline) INSERTION SPINAL INSTRUMENTATION ANTERIOR ADD-ON PX (Midline) MICROSURGICAL TECHNIQUES W/ OPERATING MICROSCOPE ADD-ON PX (N/A) PRIMARY CLOSURE Yes INTRAOPERATIVE FINDINGS No significant abnormalities SURGEON Surgeons and Role: * Jose Mccrary MD, LD - Primary ANESTHESIOLOGIST Anesthesiologist: Geraldo Frost MD Crime Lab Technician: LAZ Bray SURGICAL STAFF [employer] Tier Off: Jane Sue RN; Herlinda Clark RN Relief Scrub: Cami Koehler; Rosalio Colon COMPLICATIONS None ESTIMATED BLOOD LOSS 25 ml SPECIMENS No specimen sent * No specimens in log * Harshad Arciniega MD December 19, 2023 12:16 PM Assessment 58 y.o. male, Day of Surgery S/P C5-[address] Mccrary on 12/19/23. Plan Activity: tolerated Antibiotics: Ancef for 24 hours postoperatively or while drain is in place Blood: Hemoglobin, Glucose control with goal of <120 Brace: None Cultures: Diet: Liquid diet and progress to regular diet Drain: Hemovac drain sewn in place, monitor output Dressing: [place], change POD2 DVT Prophylaxis: SCD's Exercise: IS 10x/hr while awake, PT for mobilization (w/ or w/o walker TID), (walking QID) Peres: None Pain Regimen: Multimodal Xrays: AP/Lateral cervical spine standing Dispo: Anticipate discharge home/SNF in next 1-2 days. Appreciate SW assistance in placement and PT recs. Follow-up: Follow up with Dr. Mccrary team 2 weeks from surgery for wound check Harshad Arciniega MD Orthopaedic Spine Fellow Pt called asking if he can take Ativan today before surgery. RN text kush Frost MD. RN told pt to bring the medication with him and RN will call patient [phone] Per MD Santosh pt is ok to take home ativan as prescribed. RN notified patient by phone. 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 Anterior cervical diskectomy and fusion C5-C6 and C6-C7. 2. Use of interbody cages at C5-C6 and C6-C7 disc spaces 3. Use of anterior cervical plate and screws instrumentation C5-C7 4. Use of allograft ifactor 5. Use of intra-operative fluoroscopy. 6. Use of intra-operative neuro-monitoring SURGEON: Jose Mccrary MD MOLECULAR SPECTROSCOPIST: - Harshad Arciniega MD , Fellow ESTIMATED BLOOD LOSS: 20 mL. DRAINS: 10F COUNT: Correct at the end of the case. COMPLICATIONS: None. IMPLANTS: DePuy Coda Plate and screws. ProTi cages, ifactor Implant Name Type Inv. Item Serial No. Facilitator Lot No. LRB No. Used Action SCREW BONE 18MM 3.5MM SELF DRILL VARIABLE ANGLE [id number] - [id number] SCREW BONE 18MM 3.5MM SELF DRILL VARIABLE ANGLE [id number] JandJ/DEPUY 12/19/23 N/A 1 Implanted PLATE BONE 30MM 2 LEVEL [id number] - [id number] PLATE BONE 30MM 2 LEVEL [id number] JandJ/DEPUY 12/19/23 N/A 1 Implanted SCREW BONE 18MM 3.5MM SELF DRILL VARIABLE ANGLE [id number] - [id number] SCREW BONE 18MM 3.5MM SELF DRILL VARIABLE ANGLE [id number] JandJ/DEPUY 12/19/23 N/A 1 Implanted SCREW BONE 16MM 3.5MM SELF DRILL VARIABLE ANGLE [id number] - [id number] SCREW BONE 16MM 3.5MM SELF DRILL VARIABLE ANGLE [id number] JandJ/DEPUY 12/19/23 N/A 1 Implanted SCREW BONE 16MM 3.5MM SELF DRILL VARIABLE ANGLE [id number] - [id number] SCREW BONE 16MM 3.5MM SELF DRILL VARIABLE ANGLE [id number] JandJ/DEPUY 12/19/23 N/A 1 Implanted SCREW BONE 16MM 3.5MM SELF DRILL VARIABLE ANGLE [id number] - [id number] SCREW BONE 16MM 3.5MM SELF DRILL VARIABLE ANGLE [id number] JandJ/DEPUY 12/19/23 N/A 1 Implanted SCREW BONE 16MM 3.5MM SELF DRILL VARIABLE ANGLE [id number] - [id number] SCREW BONE 16MM 3.5MM SELF DRILL VARIABLE ANGLE [id number] JandJ/DEPUY 12/19/23 N/A 1 Implanted SPACER SPINAL 6MM ACIS MEDIUM LORDOTIC PROTI 360 STERILE - [id number] SPACER SPINAL 6MM ACIS MEDIUM LORDOTIC PROTI 360 STERILE JandJ/DEPUY [id number] N/A 1 Implanted SAPCER ACIS PT360 LORD STD 7MM - [id number] SAPCER ACIS PT360 LORD STD 7MM JandJ/DEPUY [id number] N/A 1 Implanted SUBSTITUTE BONE GRAFT 2.5CC ALLOGRAFT PUTTY SYRINGE I FACTOR - [id number] Tissue SUBSTITUTE BONE GRAFT 2.5CC ALLOGRAFT PUTTY SYRINGE I FACTOR [employer] [id number] N/A 1 Implanted INDICATIONs: Cervical spondylosis with stenosis, worsening myelopathy. Patient failed conservative treatment without improvement of symptoms. Patient elected to have cervical decompression and fusion as a definitive treatment plan. Risks, alternatives, and benefits were discussed with the patient in detail. The natural history of the disease was discussed. Risks and benefits of surgical vs. nonsurgical options were discussed with the alternative options. Risks of the procedure including but not limited to, infection, bleeding, hematoma formation, vocal cord paralysis, hoarseness, dysphagia, mild or severe, transient or permanent to the extent of need of feeding tube, possibility of no improvement, neurological weakness, catastrophic complications to the extent of complete and permanent paralysis, hardware failure, adjacent segment degeneration, and the need for revision or repeat surgery, risk of anesthesia reaction, risk of medical complications, and risk of were all discussed in details. The plan is to perform at C5-C7 anterior cervical diskectomy and instrumented fusion. PROCEDURE: The patient Iftikhar Fleming MRN. [id number] was met in the preoperative holding area. The surgical site was marked. The consent form was reviewed and the patient was transferred to operating room. [place] protocol was performed and general anesthesia with endotracheal intubation was performed without any complications. IV antibiotics were started prior to skin incision. SCDs were applied to lower extremity for DVT prophylaxis. The patient was positioned supine onto the OR table. The patient's shoulders and arms were tucked by their side, and the shoulders were taped down to the table to clear the cervical spine. Neuromonitoring team placed their leads, and baseline signals were obtained and deemed reliable and detectable from all extremities. The anterior neck was prepped and draped in sterile usual fashion and the skin was marked overlying the levels to be operated on under fluoroscopy. A left transverse skin incision was made along the medial border of the left sternocleidomastoid muscle using a #15 blade. The dissection was carried down to the level of platysma, which was incised horizontaly and the plane was developed between the sternocleidomastoid laterally and strap muscles medially and more deeply between the carotid sheath laterally and the tracheoesophageal complex medially. The deep prevertebral fascia was identified, was dissected using peanut dissectors, exposing the anterior longitudinal ligament. Hemostasis was confirmed using bipolar and monopolar electrocautery. Intraoperative fluoroscopy confirmed the levels to be operated on, using a bent spinal needle marker. Bilateral subperiosteal dissection was carried out under the longus colli muscles then the Trim line retractor blades were placed medio-laterally after lifting off the longus coli muscles from the anterolateral aspects of the vertebral bodies. Dingle pins were placed anteriorly through the vertebral bodies above and below the C6-7 disc space and gentle distraction was carried sequentially, across thses levels. Severe hypertrophic anterior osteophytes were noted at C5-6 and C6-7 levels and were removed using pituitary and rongeurs. For each intervertebral level, diskectomy was begun using an annulotomy knife (#11 blade). Pituitary rongeurs, Kerrison rongeurs as well as a Lopez elevators and curettes were used to perform a complete diskectomy at the C6-7 level. Bilateral foraminotomy was also performed using #1, #2 Kerrison rongeurs. The posterior longitudinal and posterior disc osteophyte complex was excised and removed exposing the ventral aspect of the cervical dura. Nerve hooks and curettes were used to assist in elevating and the posterior longitudinal and hypertrophic posterior disc osteophyte complex from dura. On completion, excellent spinal cord and nerve root decompression was ensured at each levels. Once hemostasis was secured, I then set out to ensure perfectly rectangular spaces with the drill at both levels using an AM-8 bit. Each space was thereafter sized and an appropriately-sized lordotic interbody cage was chosen and tamped in, with the distraction posts still in place, so that it became flush with the anterior margin of the respective vertebral bodies. Each cage (ProTi) was pre-filled in its center with ifactor. At the C6-7 level, a 7 mm lordotic cage was positioned. As well, I ensured that the anterior osteophytes over these bodies were drilled away so that the entire anterior vertebral line was smooth The distraction posts were then removed and I confirmed that the grafts were fitted very tightly as they could not be dislodged whatsoever with a large nerve hook.The same procedure was repeated at C5-6 levels with interbody cages placed following appropriate diskectomies and foraminotomies. At the C5-6 level, a 6 mm lordotic interbody cage was positioned. The entire wound was thoroughly irrigated. The cervical plate was measured and placed carefully in good alingement and staying away as much as possible from the adjacent unfused discs. A 30-mm Depuy Coda plate was ultimately chosen and initially held in place into the C6 vertebral body using a temporary pin. Fourteen millimeter trajectories were initially drilled in the appropriate orientation over all the holes and self-tapping screws were, thereafter, placed at each position in the correct orientation into the C5, C6 and C7 vertebral bodies with carefull attention no to violate any soft tissue. For the C5 and C6 vertebral body, 16 mm screws while for C7, 18 mm screws were positioned. Good bony purchase was achieved throughout and the adequacy of the trajectories and screw lengths were confirmed using AP and lateral fluoroscopy and placed. The locking mechanism was thereafter activated for all 6 screws and the plate was tightly in place. A final AP- lateral fluoroscopy confirmed good positioning of the hardware. The wound was again thoroughly irrigated with few bulbs of saline and the wound examined for evidence of any bleeding small vessels. Meticulous hemostasis was ensured though a 10 F drain was put. Following confirmation of meticulous hemostasis, we set out to close the wound in the usual layers starting with a number of interrupted inverted 2-0 Vicryl sutures for the platysma and subcutaneous tissues followed by 3-0 Vicryl inverted interrupted sutures for the superficial layer. Finally, a running 3-0 Stratafix subcuticular suture was used for close reapproximation of the skin. The incision was cleaned, Steristrips applied, followed by a dry sterile occlusive dressing. The patient appeared to tolerate the entire procedure well and there were no complications. Throughout the case and at the end of the case the neuromonitoring signals remained stable and similar to baseline, without any significant or sustained changes. The patient was then extubated without any complication, and was transferred to the hospital bed. A brief neurological examination revealed antigravity power, as baseline and pre-op, over all four extremities. DISPOSITION: The patient was transferred to PACU in hemodynamically stable condition. ATTESTATION: I was present throughout the entire case and performed the naik elements of the surgery. Jose Mccrary MD [facility] Work Phone: 12-19-2023 Nurse Surgical operation note Report given to PACU. Pt extubated and on O2 prior to being transported to PACU [facility] 12-19-2023 Nurse Note Report given to PACU. Pt extubated and on O2 prior to being transported to PACU documented in this encounter [facility] 12-19-2023 Hospital Discharge instructions Elyssa Elam STABLE ATTENDANT-SALES RECORD CLERK - 12/19/2023 3:08 PM EDT DISCHARGE INSTRUCTIONS Cervical Fusion Surgery Dr. Mccrary YOUR COLLAR You will be given a cervical collar to wear post-operatively. You must wear the collar at all times until further instructed in the office at your first post-operative visit. NO SHOWERING FOR 2 WEEKS AFTER SURGERY Your wound is to be kept clean and dry. You may NOT shower for the first two weeks after surgery. After the first two weeks, if the incision is dry, then may shower covering the incision with waterproof dressing. For example, you can use plastic wrap to cover incision area during shower, then remove after shower, pat dry with gauze. Keep incision dry and out of direct stream of water for the first 3 weeks. NO tub baths, hot tubs or whirlpools for about 6 weeks and until seen in the office. EXERCISE You have unlimited walking and stair climbing privileges. Walking outside (in nice weather only) or walking on a treadmill (no incline) is also allowed. Do NOT lift anything weighing greater than 5lbs. Especially try to avoid lifting or reaching above your head. You should move your shoulders through full range of motion several times daily. INCISION Prior to any dressing changes, please ask your support person to wash hands thoroughly. Continue to change dry dressing daily for at least 5 days after surgery. After removing dressing, if there is drainage from the incision then please contact the surgeon's office and continue to change dry dressing at least daily. After the 5 days, may leave incision open to air if incision is dry and without drainage. Please cover incision as needed to prevent irritation. Do not take a bath or submerge incision in pool until 6 weeks after surgery or until cleared surgeon s office. Do not apply any cream or lotion to the incision until discussed with surgeon. Please make sure your incisions are checked at least twice daily for signs and symptoms of infection: If any of the below should occur, please call the office. Wound infection (fever greater than 101, drainage from the wound, opening of the wound, increased redness and/or tenderness) Urinary tract infection (fever greater than 101, burning on urination or increased frequency of urination) Lower extremity blood clots and pulmonary emboli (increased leg pain, swelling, warmth or redness, increased heart rate, shortness of breath, or chest pain) Nerve problems (inability to walk on your heels or toes, numbness/tingling, weakness of the arms or legs, loss of bowel or bladder control) If you have adelso or sutures (not tape) in your incision they may be removed 2 weeks following your surgery. This may be done by a visiting nurse, family physician or by making an appointment to come into the office. If you have steri strips, allow steri strips to fall off on own. If you take Xarelto, Eliquis, Plavix, Pradaxa, Brilinta, or Coumadin, do not resume until 3 days after surgery or otherwise instructed. SLEEPING You may sleep in any position that makes you comfortable as long as your collar is securely in place. Many patients find comfort sleeping in a recliner chair. It is normal to have difficulty sleeping for the first several weeks following your surgery. We recommend trying Benadryl or Tylenol PM (both are over the counter drugs at the drugstore). EATING It is normal to have a sore throat and some difficulty swallowing solid foods. This may persist for several weeks. Eating soft foods like yogurt, macaroni and mashed potatoes seem to help. PAIN Do NOT take any anti-inflammatory medication (Advil, Aleve, Motrin) for the first ten weeks following your surgery. If you feel you do need your pain medication, you may use regular or extra-strength Tylenol. To help alleviate persistent soreness around the bone graft site or between the shoulder blades, apply ice or warm moist compresses. It is normal for graft discomfort to persist for several weeks following your surgery. The best thing is to keep walking and strengthen the hip muscle. NO tobacco products. DRIVING You may NOT drive a car until told otherwise by your physician. You may be a passenger for short distances (20-30 minutes). If you must take a longer trip, make sure to make several pit stops so that you can walk around and stretch your legs. Reclining the passenger seat seems to be the most comfortable position for most patients. It is illegal to drive a car while wearing a cervical orthosis. FOLLOW-UP APPOINTMENTS Please make an appointment for 2-3 weeks from your surgery date, unless you need to have sutures or adelso removed. Please call [phone]. QUESTIONS or CONCERNS If you have any additional questions/concerns, please contact [phone] during regular business hours Saturday through Saturday. If it is after hours or weekend and an emergency, please call [facility] at [phone] and ask for the orthopedic spine resident community organization worker. documented in this encounter [facility] 12-19-2023 Surgery Postoperative evaluation and management note Iftikhar Fleming ([id number]) PRE OPERATIVE DIAGNOSIS Cervical myelopathy [G95.9] Osteoarthritis of cervical spine with myelopathy [M47.12] Spinal stenosis of cervical region [M48.02] Cervical disc disease [M50.90] POST OPERATIVE DIAGNOSIS Cervical myelopathy [G95.9] Osteoarthritis of cervical spine with myelopathy [M47.12] Spinal stenosis of cervical region [M48.02] Cervical disc disease [M50.90] PROCEDURE PERFORMED Procedure(s) (LRB): FUSION ANTERIOR INTERBODY CERVICAL C5-7 (Midline) FUSION ANTERIOR INTERBODY CERVICAL EACH ADDL INTERSPACE ADD-ON PX (Midline) MONITORING NEUROPHYSIOLOGY INTRAOPERATIVE ADD-ON PX (N/A) APPLICATION INTERBODY/INTERVERTEBRAL BIOMECHANICAL DEVICE ADD-ON PX (Midline) INSERTION SPINAL INSTRUMENTATION ANTERIOR ADD-ON PX (Midline) MICROSURGICAL TECHNIQUES W/ OPERATING MICROSCOPE ADD-ON PX (N/A) PRIMARY CLOSURE Yes INTRAOPERATIVE FINDINGS No significant abnormalities SURGEON Surgeons and Role: * Jose Mccrary MD, MBBS - Primary ANESTHESIOLOGIST Anesthesiologist: Geraldo Frost MD Crime Lab Technician: LAZ Bary SURGICAL STAFF [employer] Tier Off: Jane Sue RN; Herlinda Clark RN Relief Scrub: Cami Koehler; Rosalio Colon COMPLICATIONS None ESTIMATED BLOOD LOSS 25 ml SPECIMENS No specimen sent * No specimens in log * Harshad Arciniega MD December 19, 2023 12:16 PM [facility] 12-19-2023 Plan of care note Assessment 58 y.o. male, Day of Surgery S/P C5-[address] Mccrary on 12/19/23. Plan Activity: tolerated Antibiotics: Ancef for 24 hours postoperatively or while drain is in place Blood: Hemoglobin, Glucose control with goal of <120 Brace: None Cultures: Diet: Liquid diet and progress to regular diet Drain: Hemovac drain sewn in place, monitor output Dressing: Island, change POD2 DVT Prophylaxis: SCD's Exercise: IS 10x/hr while awake, PT for mobilization (w/ or w/o walker TID), (walking QID) Peres: None Pain Regimen: Multimodal Xrays: AP/Lateral cervical spine standing Dispo: Anticipate discharge home/SNF in next 1-2 days. Appreciate SW assistance in placement and PT recs. Follow-up: Follow up with Dr. Mccrary team 2 weeks from surgery for wound check Harshad Arciniega MD Orthopaedic Spine Fellow [facility] 12-19-2023 History and physical note PERIOPERATIVE SURGICAL HISTORY AND PHYSICAL UPDATE Pre-op Diagnoses: No chief complaint on file. Procedure(s): C5-7 ACDF Surgeon(s): Surgeon(s) and Role: Jose Mccrary MD, MBBS History and Physical Update: Mr. Fleming denies any significant changes to health or medications since last documented office visit. He also denies ED visits, chest pain, dyspnea, fevers, chills, nausea, vomiting, and diarrhea. There were no vitals taken for this visit. Gen: He is lying in bed NAD, conversant, A&Ox3 HEENT: NCAT, PERRLA Chest: no lesions, deformities, symmetric chest rise/fall Ext: wwp, no c/c, no edema. Peripheral pulses 2+ I have reviewed Mr. Fleming's medical, surgical and other pertinent history, and I have updated the medication and allergy information in the computerized patient record. I have examined the patient, reviewed the previously documented H&P with changes noted above. The surgical procedure was explained and the patient's questions were answered. Plan is to proceed to OR as planned today. Harshad Arciniega MD Orthopaedic Spine Fellow [facility] 12-19-2023 History and physical note PERIOPERATIVE SURGICAL HISTORY AND PHYSICAL UPDATE Pre-op Diagnoses: No chief complaint on file. Procedure(s): C5-7 ACDF Surgeon(s): Surgeon(s) and Role: Jose Mccrary MD, MBBS History and Physical Update: Mr. Fleming denies any significant changes to health or medications since last documented office visit. He also denies ED visits, chest pain, dyspnea, fevers, chills, nausea, vomiting, and diarrhea. There were no vitals taken for this visit. Gen: He is lying in bed NAD, conversant, A&Ox3 HEENT: NCAT, PERRLA Chest: no lesions, deformities, symmetric chest rise/fall Ext: wwp, no c/c, no edema. Peripheral pulses 2+ I have reviewed Mr. Fleming's medical, surgical and other pertinent history, and I have updated the medication and allergy information in the computerized patient record. I have examined the patient, reviewed the previously documented H&P with changes noted above. The surgical procedure was explained and the patient's questions were answered. Plan is to proceed to OR as planned today. Harshad Arciniega MD Orthopaedic Spine Fellow documented in this encounter [facility] 12-19-2023 Nurse Note Pt called asking if he can take Ativan today before surgery. RN text kush Frost MD. RN told pt to bring the medication with him and RN will call patient [phone] Per MD Santosh pt is ok to take home ativan as prescribed. RN notified patient by phone. [facility] 12-05-2023 History and physical note Images from the original note were not included. History of Present Illness Mr. Fleming is a 58 y.o. male is being evaluated in OPAC due to his medical condition(s) , which increases his risk for perioperative complications. Patient also has a history of 1. Preop exam for internal medicine 2. Cervical myelopathy 3. Osteoarthritis of cervical spine with myelopathy 4. Spinal stenosis, cervical region 5. Gastroesophageal reflux disease, unspecified whether esophagitis present 6. Cervical disc disease 7. MADELEINE (obstructive sleep apnea) 8. Essential hypertension 9. Prediabetes 10. Hereditary hemochromatosis 11. Hypertriglyceridemia which are all stable on medication. Name: Iftikhar Fleming Date of Surgery: 12/19/2023 Surgeon: Dr Mccarry Pre-Op Diagnosis: Cervical myelopathy, Osteoarthritis of cervical spine with myelopathy , Spinal stenosis of cervical region , Cervical disc disease Planned Procedure: ACDF C5-7 Do you take Aspirin? no Do you take OAC/Antiplatelet therapy?no Blood pressure 136/80, pulse 56, temperature 97.5 F (36.4 C), resp. rate 18, height 1.791 m (5' 10.5), weight 85.6 kg (188 lb 12.8 oz), SpO2 98%. ANESTHESIA/AIRWAY Anesthesia alerts - Known MADELEINE + CPAP Personal history of problems related to anesthesia (ex.Malignant Hyperthermia): no Family History of problems related to anesthesia (ex.Malignant Hyperthermia: no History difficult airway: no History PONV no Difficult IV no Seizures no Pacer/AICD: no Glaucoma: no Beta Marco A: yes Diabetic Mellitus: prediaebtes, diet controlled MADELEINE: yes Known MADELEINE + CPAP, Mediport: no BBF: no Neck circumference greater than 40 cm? - No Neck Circumference (cm): 39.5 BMI more then 35? - No Body mass index is 26.71 kg/m . Scoring Criteria: LOW RISK: yes to 0-2 questions INTERMEDIATE RISK: yes to 3-4 questions HIGH RISK: yes to 5-8 questions Mallampati class - 1 TM Distance - 3 FB Oral Opening - 3 FB Teeth - normal dentition for age Cervical range of motion - within normal limits Denies UE radiculopathy on exam. Cervical Xrays 06/12/2023 MRI cervical 05/30/2023 FINDINGS: There are 7 cervical type vertebral bodies. No listhesis. Vertebral bodies are within normal limits in height and marrow signal. Prevertebral and paraspinal soft tissues are within normal limits. Multilevel disc height loss, degenerative signal change, and endplate osteophytes. Mildly increased T2 signal in the spinal cord at the C5-C6 and C6-C7 levels. Craniocervical junction and visualized posterior fossa are within normal limits. By levels: C1-C2: Atlanto-axial relationship is within normal limits. C2-C3: No disc herniation, cervical stenosis, or foraminal stenosis. C3-C4: No disc herniation. Bilateral facet and uncovertebral arthrosis. No cervical stenosis. Moderate right foraminal stenosis. C4-C5: Small disc bulge. Bilateral facet and uncovertebral arthrosis. No cervical stenosis. Mild right foraminal stenosis. C5-C6: Right central disc protrusion indents the spinal cord. Bilateral facet and uncovertebral arthrosis. Moderate central canal stenosis. Mild bilateral foraminal stenosis. C6-C7: Disc bulge abuts the spinal cord and effaces the CSF. Bilateral facet and uncovertebral arthrosis. Severe central canal stenosis. Moderate left and mild right foraminal stenosis. C7-T1: No disc herniation. Bilateral facet and uncovertebral arthrosis. Mild bilateral foraminal stenosis. IMPRESSION IMPRESSION: Multilevel degenerative changes as above. 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 I personally viewed and interpreted these images and I have reviewed and approved this report. Neck circumference - Neck Circumference (cm): 39.5 Allergies and adverse drug reactions Allergies Allergen Reactions Amlodipine Palpitations Cymbalta [Duloxetine Hcl] Anesthesia/Airway A/P - Does pt meet criteria for liberalized NPO? no. If no, why? ASA 3 or more Patient denies any past complications with anesthesia. CARDIOVASCULAR Cardiovascular History: Denies CAD, RI, CHF, CVA/TIA, chest pain/pressure, palpitations/arrhythmias, AICD/PPM/stent placement, orthopnea, JIMENEZ. Functional status - : Fair: Walking more than 1 [address], c/o bilateral LE weakness/gait instability. Can climb 1 flight of stairs with no JIMENEZ or chest pain 1. HYPERTENSION Chronic/Stable; BP flowsheets reviewed and noted controlled on current home regimen. BP Readings from Last 3 Encounters: 12/05/23 136/80 05/30/23 167/77 2. HYPER TRIGLYCERIDES Chronic/Stable; He has been compliant with Fenofibrate. CARDIAC TESTING: EKG due to HYPERTENSION HYPERLIPIDEMIA AGE NATURE OF PROCEDURE ECG: personally reviewed NSR HR 62 BPM Pr interval 184 ms Stress test 06/06/2023 Personally reviewed Cardiology A/P: This patient is in a low risk category as calculated using the RCRI with 0 risk factors.RCRI score is 0 points placing his at a 3.9% cardiac risk in the perioperative setting No further cardiac follow up or testing required at this time PULMONARY Pulmonary history: Social History Tobacco Use Smoking Status Unknown Smokeless Tobacco Not on file E-cigarette/Vaping: denies Denies SOB, asthma, COPD, recent fevers/chills. Pulmonary Testing: CXR 12/05/2023 Pulmonary A/P - Denies history of lung disease or recent respiratory infections. No further pulmonary testing necessary. SUBSTANCE ABUSE Social History Substance and Sexual Activity Alcohol Use None Social History Substance and Sexual Activity Drug Use Not on file Substance Abuse A/P - Denies regular/DAILY consumption of alcohol. Encouraged to avoid ETOH 5 days prior to surgery. Denies history of llicit drug use. CLOTTING/BLEEDING History of DVT/PE - no Are you a Jehovah Witness? - no Have you received a blood products in the last 90 days? - no Have you been diagnosed with a clotting or bleeding disorder? - no In case of surgeons plan or unforseen emergency, are you okay with receiving blood products? - yes Clotting Bleeding A/P - Recommend standard DVT/PE prophylaxis postoperatively. DIABETES Diabetes A/P - prediabetes. On no current therapies. ADDITIONAL DIAGNOSES OF CONCERN L4-L5 microdiscectomy 2015. 2. Hereditary hemochromatosis Chronic/stable; Started on Phlebotomy in 03/22. Phlebotomy scheduled/completed every other month. Following with local imagery analyst Marleen from [facility]/Hepatology Dr Briones from [facility]. Planned for next Phlebotomy on 12/16/23.Encouraged to completed phlebotomy as scheduled. 3. GERD: Chronic/Stable he has been managed on Oemrapzole 20 mg daily. Reports he is able to lie flat without regurgitation symptoms. he feels it is controlled. Advised the continuation of PPI to reduce risk of aspiration related complications. Denies history kidney disease MEDICATIONS Current Outpatient Medications Medication Sig Cholecalciferol (VITAMIN D-3 PO) Take 1 capsule by mouth daily with lunch. Dose unknown at this time Citalopram 20 MG tablet Take 1 tablet by mouth daily every morning. Fenofibrate 48 MG tablet Take 1 tablet by mouth every evening. hydrochlorothiazide 25 MG Tab Take 1 tablet by mouth daily every morning. lisinopril 40 MG tablet Take 1 tablet by mouth daily every morning. Metoprolol 50 MG tab regular release Take 1 tablet by mouth 2 times daily. omega-3 acid ethyl esters 1 g capsule Take 1 capsule by mouth daily with lunch. omeprazole [address] capsule Take 1 capsule by mouth daily every morning. vitamin E 400 units capsule Take 1 capsule by mouth daily with lunch. fluoxetine 10 MG Cap take 10 mg by mouth daily.. Sucralfate 1 g tablet (Patient not taking: Reported on 10/02/2023) Medication A/P - Instructions for preoperative medications given to the patient in AVS. LABS Orders Placed This Encounter SCREEN: MRSA/MSSA XR CHEST PA AND LATERAL 2 VIEWS COMPREHENSIVE METABOLIC PANEL CBC, EDIF, PLATELET PROTIME-INR PTT WITH MIXING STUDY HEMOGLOBIN A1C CBC AND ELECTRONIC DIFF PTT W/MIXING STUDY PERF ONLY EXTRA LIGHT BLUE TOP DOUBLE SPIN Type and Cross -Preadmission URINALYSIS REFLEX TO CULTURE URINALYSIS REFLEX TO CULTURE PERFORMABLE EXTRA MICRO KS ECG, CLINIC PERFORMED Lab A/P - Labs ordered per surgeon preference Anesthesia/Medical Assessment/plan: Reviewed patient's history, assessment & ECG findings with Anesthesiologist Dr. Dasia Yi, STABLE ATTENDANT-SALES RECORD CLERK [facility] [address] Review of Systems Constitutional: Negative for chills, fatigue and fever. HENT: Negative for congestion, dental problem, hearing loss, rhinorrhea, sneezing, sore throat and trouble swallowing. Eyes: Negative for pain. Respiratory: Negative for apnea, cough, choking, chest tightness, shortness of breath and wheezing. Cardiovascular: Negative for chest pain, palpitations and leg swelling. Gastrointestinal: Negative for abdominal pain, constipation, diarrhea, nausea and vomiting. Endocrine: Negative for polyuria. Genitourinary: Negative for difficulty urinating, dysuria, frequency, hematuria and urgency. Musculoskeletal: Positive for back pain, gait problem and neck pain. Negative for arthralgias and myalgias. Skin: Negative for rash and wound. Allergic/Immunologic: Negative for food allergies. Neurological: Positive for weakness (bilateral UE) and numbness (tingling RUE> LUE). Negative for seizures and syncope. Hematological: Does not bruise/bleed easily. Psychiatric/Behavioral: Negative for sleep disturbance. The patient is not nervous/anxious. Physical Exam Constitutional: General: He is not in acute distress. Appearance: Normal appearance. He is normal weight. He is not ill-appearing, toxic-appearing or diaphoretic. HENT: Head: Normocephalic and atraumatic. Right Ear: External ear normal. Left Ear: External ear normal. Nose: Nose normal. No congestion or rhinorrhea. Mouth/Throat: Mouth: Mucous membranes are moist. Pharynx: Oropharynx is clear. No oropharyngeal exudate or posterior oropharyngeal erythema. Eyes: General: No scleral icterus. Right eye: No discharge. Left eye: No discharge. Conjunctiva/sclera: Conjunctivae normal. Neck: Vascular: No carotid bruit. Cardiovascular: Rate and Rhythm: Normal rate and regular rhythm. Pulses: Normal pulses. Heart sounds: Normal heart sounds. No murmur heard. Pulmonary: Effort: Pulmonary effort is normal. No respiratory distress. Breath sounds: No stridor. No wheezing, rhonchi or rales. Chest: Chest wall: No tenderness. Abdominal: General: Abdomen is flat. Bowel sounds are normal. There is no distension. Tenderness: There is no abdominal tenderness. Musculoskeletal: General: No swelling. Normal range of motion. Cervical back: Normal range of motion. No rigidity. No muscular tenderness. Right lower leg: No edema. Left lower leg: No edema. Skin: General: Skin is warm and dry. Capillary Refill: Capillary refill takes less than 2 seconds. Coloration: Skin is not jaundiced or pale. Findings: No bruising, erythema, lesion or rash. Neurological: General: No focal deficit present. Mental Status: He is alert. Mental status is at baseline. Psychiatric: Mood and Affect: Mood normal. Behavior: Behavior normal. Thought Content: Thought content normal. Past Medical History: Diagnosis Date Anxiety Asthma Bipolar disorder Depression HTN (hypertension) PTSD (post-traumatic stress disorder) Past Surgical History: Procedure Laterality Date LAMINECTOMY VERTEBRAL SEGMENT LUMBAR 02/2016 HERNIA REPAIR 2012 Patient Care Team: Mary Dumont MD as PCP - General (Pulmonary Disease) No family history on file. Social History Socioeconomic History Marital status: Tobacco Use Smoking status: Unknown [facility] 12-05-2023 History and physical note Images from the original note were not included. History of Present Illness Mr. Fleming is a 58 y.o. male is being evaluated in [facility] due to his medical condition(s) , which increases his risk for perioperative complications. Patient also has a history of 1. Preop exam for internal medicine 2. Cervical myelopathy 3. Osteoarthritis of cervical spine with myelopathy 4. Spinal stenosis, cervical region 5. Gastroesophageal reflux disease, unspecified whether esophagitis present 6. Cervical disc disease 7. MADELEINE (obstructive sleep apnea) 8. Essential hypertension 9. Prediabetes 10. Hereditary hemochromatosis 11. Hypertriglyceridemia which are all stable on medication. Name: Iftikhar Fleming Date of Surgery: 12/19/2023 Surgeon: Dr Mccrary Pre-Op Diagnosis: Cervical myelopathy, Osteoarthritis of cervical spine with myelopathy , Spinal stenosis of cervical region , Cervical disc disease Planned Procedure: ACDF C5-7 Do you take Aspirin? no Do you take OAC/Antiplatelet therapy?no Blood pressure 136/80, pulse 56, temperature 97.5 F (36.4 C), resp. rate 18, height 1.791 m (5' 10.5), weight 85.6 kg (188 lb 12.8 oz), SpO2 98%. ANESTHESIA/AIRWAY Anesthesia alerts - Known MADELEINE + CPAP Personal history of problems related to anesthesia (ex.Malignant Hyperthermia): no Family History of problems related to anesthesia (ex.Malignant Hyperthermia: no History difficult airway: no History PONV no Difficult IV no Seizures no Pacer/AICD: no Glaucoma: no Beta Marco A: yes Diabetic Mellitus: prediaebtes, diet controlled MADELEINE: yes Known MADELEINE + CPAP, Mediport: no BBF: no Neck circumference greater than 40 cm? - No Neck Circumference (cm): 39.5 BMI more then 35? - No Body mass index is 26.71 kg/m . Scoring Criteria: LOW RISK: yes to 0-2 questions INTERMEDIATE RISK: yes to 3-4 questions HIGH RISK: yes to 5-8 questions Mallampati class - 1 TM Distance - 3 FB Oral Opening - 3 FB Teeth - normal dentition for age Cervical range of motion - within normal limits Denies UE radiculopathy on exam. Cervical Xrays 06/12/2023 MRI cervical 05/30/2023 FINDINGS: There are 7 cervical type vertebral bodies. No listhesis. Vertebral bodies are within normal limits in height and marrow signal. Prevertebral and paraspinal soft tissues are within normal limits. Multilevel disc height loss, degenerative signal change, and endplate osteophytes. Mildly increased T2 signal in the spinal cord at the C5-C6 and C6-C7 levels. Craniocervical junction and visualized posterior fossa are within normal limits. By levels: C1-C2: Atlanto-axial relationship is within normal limits. C2-C3: No disc herniation, cervical stenosis, or foraminal stenosis. C3-C4: No disc herniation. Bilateral facet and uncovertebral arthrosis. No cervical stenosis. Moderate right foraminal stenosis. C4-C5: Small disc bulge. Bilateral facet and uncovertebral arthrosis. No cervical stenosis. Mild right foraminal stenosis. C5-C6: Right central disc protrusion indents the spinal cord. Bilateral facet and uncovertebral arthrosis. Moderate central canal stenosis. Mild bilateral foraminal stenosis. C6-C7: Disc bulge abuts the spinal cord and effaces the CSF. Bilateral facet and uncovertebral arthrosis. Severe central canal stenosis. Moderate left and mild right foraminal stenosis. C7-T1: No disc herniation. Bilateral facet and uncovertebral arthrosis. Mild bilateral foraminal stenosis. IMPRESSION IMPRESSION: Multilevel degenerative changes as above. 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 I personally viewed and interpreted these images and I have reviewed and approved this report. Neck circumference - Neck Circumference (cm): 39.5 Allergies and adverse drug reactions Allergies Allergen Reactions Amlodipine Palpitations Cymbalta [Duloxetine Hcl] Anesthesia/Airway A/P - Does pt meet criteria for liberalized NPO? no. If no, why? ASA 3 or more Patient denies any past complications with anesthesia. CARDIOVASCULAR Cardiovascular History: Denies CAD, RI, CHF, CVA/TIA, chest pain/pressure, palpitations/arrhythmias, AICD/PPM/stent placement, orthopnea, JIMENEZ. Functional status - : Fair: Walking more than 1 city block, c/o bilateral LE weakness/gait instability. Can climb 1 flight of stairs with no JIMENEZ or chest pain 1. HYPERTENSION Chronic/Stable; BP flowsheets reviewed and noted controlled on current home regimen. BP Readings from Last 3 Encounters: 12/05/23 136/80 05/30/23 167/77 2. HYPER TRIGLYCERIDES Chronic/Stable; He has been compliant with Fenofibrate. CARDIAC TESTING: EKG due to HYPERTENSION HYPERLIPIDEMIA AGE NATURE OF PROCEDURE ECG: personally reviewed NSR HR 62 BPM Pr interval 184 ms Stress test 06/06/2023 Personally reviewed Cardiology A/P: This patient is in a low risk category as calculated using the RCRI with 0 risk factors.RCRI score is 0 points placing his at a 3.9% cardiac risk in the perioperative setting No further cardiac follow up or testing required at this time PULMONARY Pulmonary history: Social History Tobacco Use Smoking Status Unknown Smokeless Tobacco Not on file E-cigarette/Vaping: denies Denies SOB, asthma, COPD, recent fevers/chills. Pulmonary Testing: CXR 12/05/2023 Pulmonary A/P - Denies history of lung disease or recent respiratory infections. No further pulmonary testing necessary. SUBSTANCE ABUSE Social History Substance and Sexual Activity Alcohol Use None Social History Substance and Sexual Activity Drug Use Not on file Substance Abuse A/P - Denies regular/DAILY consumption of alcohol. Encouraged to avoid ETOH 5 days prior to surgery. Denies history of llicit drug use. CLOTTING/BLEEDING History of DVT/PE - no Are you a Jehovah Witness? - no Have you received a blood products in the last 90 days? - no Have you been diagnosed with a clotting or bleeding disorder? - no In case of surgeons plan or unforseen emergency, are you okay with receiving blood products? - yes Clotting Bleeding A/P - Recommend standard DVT/PE prophylaxis postoperatively. DIABETES Diabetes A/P - prediabetes. On no current therapies. ADDITIONAL DIAGNOSES OF CONCERN L4-L5 microdiscectomy 2015. 2. Hereditary hemochromatosis Chronic/stable; Started on Phlebotomy in 03/22. Phlebotomy scheduled/completed every other month. Following with local imagery analyst Marleen from [facility]/Hepatology Dr Briones from [facility]. Planned for next Phlebotomy on 12/16/23.Encouraged to completed phlebotomy as scheduled. 3. GERD: Chronic/Stable he has been managed on Oemrapzole 20 mg daily. Reports he is able to lie flat without regurgitation symptoms. he feels it is controlled. Advised the continuation of PPI to reduce risk of aspiration related complications. Denies history kidney disease MEDICATIONS Current Outpatient Medications Medication Sig Cholecalciferol (VITAMIN D-3 PO) Take 1 capsule by mouth daily with lunch. Dose unknown at this time Citalopram 20 MG tablet Take 1 tablet by mouth daily every morning. Fenofibrate 48 MG tablet Take 1 tablet by mouth every evening. hydrochlorothiazide 25 MG Tab Take 1 tablet by mouth daily every morning. lisinopril 40 MG tablet Take 1 tablet by mouth daily every morning. Metoprolol 50 MG tab regular release Take 1 tablet by mouth 2 times daily. omega-3 acid ethyl esters 1 g capsule Take 1 capsule by mouth daily with lunch. omeprazole [address] capsule Take 1 capsule by mouth daily every morning. vitamin E 400 units capsule Take 1 capsule by mouth daily with lunch. fluoxetine 10 MG Cap take 10 mg by mouth daily.. Sucralfate 1 g tablet (Patient not taking: Reported on 10/02/2023) Medication A/P - Instructions for preoperative medications given to the patient in AVS. LABS Orders Placed This Encounter SCREEN: MRSA/MSSA XR CHEST PA AND LATERAL 2 VIEWS COMPREHENSIVE METABOLIC PANEL CBC, EDIF, PLATELET PROTIME-INR PTT WITH MIXING STUDY HEMOGLOBIN A1C CBC AND ELECTRONIC DIFF PTT W/MIXING STUDY PERF ONLY EXTRA LIGHT BLUE TOP DOUBLE SPIN Type and Cross -Preadmission URINALYSIS REFLEX TO CULTURE URINALYSIS REFLEX TO CULTURE PERFORMABLE EXTRA MICRO KS ECG, CLINIC PERFORMED Lab A/P - Labs ordered per surgeon preference Anesthesia/Medical Assessment/plan: Reviewed patient's history, assessment & ECG findings with Anesthesiologist Dr. Dasia Yi, STABLE ATTENDANT-SALES RECORD CLERK [facility] Per[facility] [address] [facility] [place] [facility] Review of Systems Constitutional: Negative for chills, fatigue and fever. HENT: Negative for congestion, dental problem, hearing loss, rhinorrhea, sneezing, sore throat and trouble swallowing. Eyes: Negative for pain. Respiratory: Negative for apnea, cough, choking, chest tightness, shortness of breath and wheezing. Cardiovascular: Negative for chest pain, palpitations and leg swelling. Gastrointestinal: Negative for abdominal pain, constipation, diarrhea, nausea and vomiting. Endocrine: Negative for polyuria. Genitourinary: Negative for difficulty urinating, dysuria, frequency, hematuria and urgency. Musculoskeletal: Positive for back pain, gait problem and neck pain. Negative for arthralgias and myalgias. Skin: Negative for rash and wound. Allergic/Immunologic: Negative for food allergies. Neurological: Positive for weakness (bilateral UE) and numbness (tingling RUE> LUE). Negative for seizures and syncope. Hematological: Does not bruise/bleed easily. Psychiatric/Behavioral: Negative for sleep disturbance. The patient is not nervous/anxious. Physical Exam Constitutional: General: He is not in acute distress. Appearance: Normal appearance. He is normal weight. He is not ill-appearing, toxic-appearing or diaphoretic. HENT: Head: Normocephalic and atraumatic. Right Ear: External ear normal. Left Ear: External ear normal. Nose: Nose normal. No congestion or rhinorrhea. Mouth/Throat: Mouth: Mucous membranes are moist. Pharynx: Oropharynx is clear. No oropharyngeal exudate or posterior oropharyngeal erythema. Eyes: General: No scleral icterus. Right eye: No discharge. Left eye: No discharge. Conjunctiva/sclera: Conjunctivae normal. Neck: Vascular: No carotid bruit. Cardiovascular: Rate and Rhythm: Normal rate and regular rhythm. Pulses: Normal pulses. Heart sounds: Normal heart sounds. No murmur heard. Pulmonary: Effort: Pulmonary effort is normal. No respiratory distress. Breath sounds: No stridor. No wheezing, rhonchi or rales. Chest: Chest wall: No tenderness. Abdominal: General: Abdomen is flat. Bowel sounds are normal. There is no distension. Tenderness: There is no abdominal tenderness. Musculoskeletal: General: No swelling. Normal range of motion. Cervical back: Normal range of motion. No rigidity. No muscular tenderness. Right lower leg: No edema. Left lower leg: No edema. Skin: General: Skin is warm and dry. Capillary Refill: Capillary refill takes less than 2 seconds. Coloration: Skin is not jaundiced or pale. Findings: No bruising, erythema, lesion or rash. Neurological: General: No focal deficit present. Mental Status: He is alert. Mental status is at baseline. Psychiatric: Mood and Affect: Mood normal. Behavior: Behavior normal. Thought Content: Thought content normal. Past Medical History: Diagnosis Date Anxiety Asthma Bipolar disorder Depression HTN (hypertension) PTSD (post-traumatic stress disorder) Past Surgical History: Procedure Laterality Date LAMINECTOMY VERTEBRAL SEGMENT LUMBAR 02/2016 HERNIA REPAIR 2012 Patient Care Team: Mary Dumont MD as PCP - General (Pulmonary Disease) No family history on file. Social History Socioeconomic History Marital status: Tobacco Use Smoking status: Unknown documented in this encounter [facility] 12-05-2023 History of Present illness Narrative Images from the original note were not included. The patient has been evaluated and discussed with Kaylie Yi CNP. ACDF C5-7 Concerns/Comments: 1.Airway---has MADELEINE and uses CPAP 06/12/23 XR SPINE FILMS IMPRESSION: Multilevel spondylotic changes, greatest at C5-6 and C6-7. 2 mm retrolisthesis C3 over C4 on extension. 2. CV--HTN, HLD. Patient denies CP, JIMENEZ, orthopnea, and palpitations. Has low moderate functional capacity. 06/06/23 Stress test 3. GI--GERD, takes omeprazole. Patient has hemochromatosis and has phlebotomy every other month. 4. Endocrine--diet controlled prediabetes Anesthesia Assessment:No contraindications to planned surgery. Pending review of the patient's labs.ECG reviewed. Vero Forman MD [facility] documented in this encounter [facility] 12-05-2023 Instructions Brittany Cisse LPN - 12/05/2023 10:30 AM EST Patient Medication Instructions: - Only take listed medications on the morning of surgery with a sip of water. Do not take any of your other medications on the morning of surgery. Current Outpatient Medications Medication Sig Instructions Cholecalciferol (VITAMIN D-3 PO) 1 capsule, Oral, DAILY WITH LUNCH, Dose unknown at this time Do not take morning of surgery Citalopram 20 MG tablet 20 mg, Oral, DAILY EVERY MORNING Take morning fos surgery Fenofibrate 48 MG tablet 48 mg, Oral, EVERY EVENING Take night before surgery hydrochlorothiazide 25 MG Tab 25 mg, Oral, DAILY EVERY MORNING Do not take morning of surgery lisinopril 40 MG tablet 40 mg, Oral, DAILY EVERY MORNING Do not take morning of surgery Metoprolol 50 MG tab regular release Take 1 tablet by mouth 2 times daily. Take morning of surgery omega-3 acid ethyl esters 1 g capsule 1 g, Oral, DAILY WITH LUNCH HOLD 2 weeks prior to surgery omeprazole [address] capsule 20 mg, Oral, DAILY EVERY MORNING Take morning of surgery vitamin E 400 units capsule 400 Units, Oral, DAILY WITH LUNCH HOLD 2 weeks prior to surgery If you use an Inhaler/Inhalers on a daily basis, then use your inhaler on the morning of surgery. Do NOT take herbal medications and supplements (including multi-vitamin, Fish Oil, garlic, Glucosamine - Chondroitin, gingko, ginseng, Vitamin E, Vitamin A, probiotics) 2 weeks before surgery, unless otherwise instructed above. Do NOT take Excedrin, ibuprofen, Advil, Voltaren (Diclofenac), Motrin, naproxen, or Aleve, Mobic (Meloxicam) for the 7-14 days before surgery. Acetaminophen (Tylenol) is ok to take up until the day of surgery. Patient Pre-Operative Instructions: Diet Instructions: -NO food or drink after 11 pm the night before surgery except for enough water to take your medications. (No Candy, Mints and/or Gum) - Do NOT wear any hearing aids, jewelry, watches, rings, hairpieces, makeup, glasses or contact lenses with you into your surgery. - Shower the night before and the morning of surgery. To lessen your chance of getting an infection after your surgery, you will need to wash your skin with a special soap called 4% Chlorhexidine Gluconate (CHG) before your surgery. Your nurse has given you CHG soap today and written instructions; Getting Your Skin Ready for Surgery. Please review the instructions carefully prior to your surgery. - Do NOT shave, or pluck hair from anywhere near the surgical site one week prior to surgery. - [place] your teeth and rinse your mouth the morning of surgery. - Do NOT bring your dentures or partials with you into surgery. They may be lost. Give them to someone to bring to you after surgery. Today we completed a nasal swab culture to check for a specific bacteria called MRSA or MSSA. This is a bacteria that can live in the nose and cause no symptoms or illness. If your culture is positive, we will contact you and send in a prescription for mupirocin to your pharmacy. You will be instructed to rub the ointment into each of your nostrils twice a day for 5 days prior to your surgery. Your nurse will also swab your nose with a betadine swab in the preoperative area on your day of surgery. Please notify the nurse if you have an iodine allergy. If you become ill, develop a fever, cough, or any type of infection within 14 days of your scheduled surgery, please call the surgeon's office. You may need to have your surgery moved, as we would not want to put you at risk for complications due to an illness. If you are placed on Antibiotics within 1 week of surgery, please notify our team immediately. Your anesthesia team request you avoid smoking, vaping and/or use of E cigarettes 24 hours prior to surgery unless otherwise instructed by your surgeons office - If you have Sleep apnea and have a CPAP or BIPAP, then bring your CPAP mask and machine with you to the hospital. Patient instructed to bring CPAP machine, with prescribed settings, and mask day of surgery. Patient Education handout MADELEINE Care after Sedation or Anesthesia given to patient. Please complete LABS and CHEST XRAY today If you are unable to complete your scheduled testing or appointments made by [facility] please contact [facility] at [phone]. Failure to do so could delay or cancel your surgery. AVS/BLS documented in this encounter [facility] 10-02-2023 History of Present illness Narrative Follow-up [...] C5 Bic C5,6 WE C6 Triceps C7 Cruise Director C8 Intrinsics T1 Reference Right 5 5 [...] Discussion/Instructions: Mr. Fleming will receive day of surgeryinstruction from clinic. Plan of care discussed. All [...] after surgery with XOA no The total [id number] time spent on this visit was at least greater than 20 minutes, with the majority (>50%) of the time spent in counseling, discussing pathology and management options, and coordination of care. Jose Mccrary MD documented in this encounter [facility] 06-12-2023 History of Present illness Narrative I have personally seen and examined Iftikhar Fleming and reviewed the relevant images. Following my extensive edits, I agree with the clinical history, physical examination, and management plan detailed in the Fellow's note. I have personally discussed the diagnosis and management with the patient. The total ghue-bp-chpe time spent on this visit was greater than 30 minutes, with the majority (>50%) of the time spent in counseling, discussing pathology and management options, and coordination of care. Jose Mccrary MD Follow-up Visit: Chief Complaint / Reason for Visit : Follow-up for cervical and lumbar MRIs HPI: Iftikhar Fleming is a right Hand Dominant 57 y.o. male who presents with follow-up of cervical and lumbar MRIs. He was last seen in clinic on 05/08/23 for chronic LLE radiculopathy following a surgery in [place] in 2016 where he was found to [...] C5 Bic C5,6 WE C6 Triceps C7 Cruise Director C8 Intrinsics T1 Reference Right 5 5 [...] plan formulated for this visit. The total [id number] time spent on this visit was greater [...] Spine Fellow documented in this encounter [facility] 05-22-2023 Procedure note [facility] 05-22-2023 Procedure note [facility] 05-22-2023 Procedure note [facility] 05-22-2023 Procedure note [facility] 05-08-2023 History of Present illness Narrative Referring Physician: Dr. Dumont Chief Complaint / Reason for Visit : left leg radiculopathy Occupation: retired HPI: Patient is a 57 y.o. male who presents with long-standing left leg greater than axial symptoms. He has a history of a left-sided diaz laminectomy in [place] in 2016 for left lower extremity radiculopathy [...] Vijay Brizuela MD Orthopaedic Surgery, PGY5 Pager #[phone] I have personally seen and examined Iftikhar Fleming and reviewed the relevant images. Following my extensive edits, I agree with the clinical history, physical examination, and management plan detailed in the resident's note. I have personally discussed the diagnosis and management with the patient. The total dxhm-ms-aout time spent on this visit was greater than 30 minutes, with the majority (>50%) of the time spent in counseling, discussing pathology and management options, and coordination of care. Jose Mccrary MD documented in this encounter [facility] Evaluation note Diagnosis Onset Date Impingement syndrome, shoulder, left acute [facility] Work Phone: Evaluation note* Diagnosis Onset Date Resolution Status Chronic lumbar radiculopathy chronic Hyperlipidemia chronic Hypertension chronic Chronic lumbar radiculopathy chronic Neuropathy chronic [facility] Work Phone: Evaluation note* Diagnosis Onset Date Resolution Status Chronic lumbar radiculopathy chronic Hyperlipidemia chronic Hypertension chronic Chronic lumbar radiculopathy chronic Neuropathy chronic Idiopathic peripheral neuropathy acute Left temporomandibular joint disorder, unspecified acute Idiopathic peripheral neuropathy acute [facility] Work Phone: Evaluation note* Diagnosis Onset Date Resolution Status Chronic lumbar radiculopathy chronic Neuropathy chronic Idiopathic peripheral neuropathy acute Left temporomandibular joint disorder, unspecified acute Idiopathic peripheral neuropathy acute Chronic lumbar radiculopathy chronic Low back pain chronic Polyneuropathy chronic [facility] Work Phone: Evaluation note* Diagnosis Onset Date Resolution Status Fatigue acute Anxiety chronic Chronic lumbar radiculopathy chronic Depression chronic Hyperglycemia chronic Low back pain chronic Polyneuropathy chronic [facility] Work Phone: Evaluation note* Diagnosis Onset Date Resolution Status Fatigue acute Anxiety chronic Chronic lumbar radiculopathy chronic Depression chronic Hyperglycemia chronic Low back pain chronic Polyneuropathy chronic Encounter for wellness examination in adult acute Anxiety chronic Depression chronic Hypertension chronic Hypertriglyceridemia chronic Polyneuropathy chronic [facility] Work Phone: Evaluation note* Diagnosis Onset Date Resolution Status Fatigue acute Anxiety chronic Chronic lumbar radiculopathy chronic Depression chronic Hyperglycemia chronic Low back pain chronic Polyneuropathy chronic Encounter for wellness examination in adult acute Anxiety chronic Depression chronic Hypertension chronic Hypertriglyceridemia chronic Polyneuropathy chronic Vitamin d deficiency acute Anxiety chronic Depression chronic Polyneuropathy chronic [facility] Work Phone: Evaluation note* Diagnosis Onset Date Resolution Status Fatigue acute Anxiety chronic Chronic lumbar radiculopathy chronic Depression chronic Hyperglycemia chronic Low back pain chronic Polyneuropathy chronic Encounter for wellness examination in adult acute Anxiety chronic Depression chronic Hypertension chronic Hypertriglyceridemia chronic Polyneuropathy chronic Vitamin d deficiency acute Anxiety chronic Depression chronic Polyneuropathy chronic Elevated LFTs chronic History of IBS chronic [facility] Work Phone: Evaluation note* Diagnosis Onset Date Resolution Status Fatigue acute Anxiety chronic Chronic lumbar radiculopathy chronic Depression chronic Hyperglycemia chronic Low back pain chronic Polyneuropathy chronic Encounter for wellness examination in adult acute Anxiety chronic Depression chronic Hypertension chronic Hypertriglyceridemia chronic Polyneuropathy chronic Vitamin d deficiency acute Anxiety chronic Depression chronic Polyneuropathy chronic Elevated LFTs chronic History of IBS chronic Fatigue acute Vitamin d deficiency acute Anxiety chronic Depression chronic Elevated LFTs chronic Hyperlipidemia chronic Hypertension chronic Hypertriglyceridemia chronic Polyneuropathy chronic Hereditary hemochromatosis c hronic [facility] Work Phone: Evaluation note* Diagnosis Onset Date Resolution Status Vitamin d deficiency acute Anxiety chronic Depression chronic Polyneuropathy chronic Elevated LFTs chronic History of IBS chronic Fatigue acute Vitamin d deficiency acute Anxiety chronic Depression chronic Elevated LFTs chronic Hyperlipidemia chronic Hypertension chronic Hypertriglyceridemia chronic Polyneuropathy chronic Hereditary hemochromatosis c [facility] Sleep apnea acute Hypertension chronic [facility] Work Phone: Evaluation note* Diagnosis Degenerative disc disease, lumbar- Primary Degeneration of lumbar or lumbosacral intervertebral disc Spinal stenosis of lumbar region with neurogenic claudication Spinal stenosis, lumbar region, with neurogenic claudication Myelopathy Unspecified disease of spinal cord Degenerative disc disease, lumbar Degeneration of lumbar or lumbosacral intervertebral disc [facility] Diagnosis Degenerative disc disease, lumbar Degeneration of lumbar or lumbosacral intervertebral disc [facility] Diagnosis Onset Date Resolution Status Fatigue acute Hyperlipidemia chronic Hypertension chronic Hypertriglyceridemia chronic Hereditary hemochromatosis c hronic Hypertension chronic Chest pain chronic Dyslipidemia chronic Dyspnea on exertion chronic Hereditary hemochromatosis c hronic Hypertension chronic [facility] Work Phone: Evaluation note* Diagnosis Myelopathy Unspecified disease of spinal cord [facility] Diagnosis Degenerative disc disease, lumbar Degeneration of lumbar or lumbosacral intervertebral disc Spinal stenosis of lumbar region with neurogenic claudication Spinal stenosis, lumbar region, with neurogenic claudication [facility] Diagnosis Onset Date Resolution Status Anxiety chronic Depression chronic Fatigue chronic Hyperlipidemia chronic Hypertension chronic Hypertriglyceridemia chronic Vitamin d deficiency chronic Hereditary hemochromatosis c hronic Hypertension chronic Chest pain chronic Dyslipidemia chronic Dyspnea on exertion chronic Hereditary hemochromatosis c hronic Hypertension chronic Hyperammonemia acute Anxiety chronic Depression chronic Fatigue chronic Vitamin d deficiency [facility] Work Phone: Evaluation note* Diagnosis Cervical myelopathy- Primary Cervical spondylosis with myelopathy Spinal stenosis of lumbar region with neurogenic claudication Spinal stenosis, lumbar region, with neurogenic claudication Degenerative disc disease, lumbar Degeneration of lumbar or lumbosacral intervertebral disc Numbness and tingling Disturbance of skin sensation Foraminal stenosis of lumbar region Spinal stenosis, lumbar region, without neurogenic claudication Cervical myelopathy Cervical spondylosis with myelopathy [facility] Diagnosis Cervical myelopathy Cervical spondylosis with myelopathy [facility] Diagnosis Cervical myelopathy- Primary Cervical spondylosis with myelopathy Osteoarthritis of cervical spine with myelopathy Spinal stenosis of cervical region Spinal stenosis in cervical region Cervical disc disease Other and unspecified disc disorder of cervical region [facility] Diagnosis Onset Date Resolution Status Anxiety chronic Depression chronic Fatigue chronic Vitamin d deficiency chronic Chronic lumbar radiculopathy chronic Dyslipidemia chronic Hereditary hemochromatosis c hronic Hyperlipidemia chronic Hypertension chronic 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 Dyspnea on exertion chronic [facility] Work Phone: Evaluation note* Diagnosis Onset Date Resolution Status Anxiety chronic Depression chronic Fatigue chronic Vitamin d deficiency chronic Chronic lumbar radiculopathy chronic Dyslipidemia chronic Hereditary hemochromatosis c hronic Hyperlipidemia chronic Hypertension chronic 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 Dyspnea on exertion chronic History of hernia surgery [place] [employer] [place] Right groin pain acute Sleep apnea acute Dyslipidemia chronic Dyspnea on exertion chronic Hereditary hemochromatosis c hronic Hypertension chronic [facility] Work Phone: Evaluation note* Diagnosis Preop exam for internal medicine- Primary Other specified pre-operative examination Cervical myelopathy Cervical spondylosis with myelopathy Osteoarthritis of cervical spine with myelopathy Spinal stenosis, cervical region Gastroesophageal reflux disease, unspecified whether esophagitis present Cervical disc disease Other and unspecified disc disorder of cervical region MADELEINE (obstructive sleep apnea) Obstructive sleep apnea (adult) (pediatric) Essential hypertension Unspecified essential hypertension Prediabetes Other abnormal glucose Hereditary hemochromatosis Hypertriglyceridemia Pure hyperglyceridemia Preop exam for internal medicine Other specified pre-operative examination Cervical myelopathy Cervical spondylosis with myelopathy Osteoarthritis of cervical spine with myelopathy Spinal stenosis, cervical region Gastroesophageal reflux disease, unspecified whether esophagitis present Cervical disc disease Other and unspecified disc disorder of cervical region MADELEINE (obstructive sleep apnea) Obstructive sleep apnea (adult) (pediatric) Essential hypertension Unspecified essential hypertension Prediabetes Other abnormal glucose Hereditary hemochromatosis Hypertriglyceridemia Pure hyperglyceridemia Cervical myelopathy Cervical spondylosis with myelopathy Osteoarthritis of cervical spine with myelopathy Spinal stenosis of cervical region Spinal stenosis in cervical region Cervical disc disease Other and unspecified disc disorder of cervical region [facility] Diagnosis Cervical vertebral fusion- Primary Klippel-Feil syndrome Cervical vertebral fusion Klippel-Feil syndrome [facility] Diagnosis Onset Date Resolution Status Chronic lumbar radiculopathy chronic Dyslipidemia chronic Hereditary hemochromatosis c hronic Hyperlipidemia chronic Hypertension chronic 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 Dyspnea on exertion chronic History of hernia surgery [place] [employer] [place] Right groin pain acute Sleep apnea acute Dyslipidemia chronic Dyspnea on exertion chronic Hereditary hemochromatosis c hronic Hypertension chronic History of hernia surgery [place] [employer] [place] Right groin pain acute Anxiety chronic Depression chronic Elevated blood pressure reading acute Anxiety chronic Hereditary hemochromatosis c hronic Hyperlipidemia chronic Hypertension chronic [facility] Work Phone: Evaluation note* Diagnosis Cervical myelopathy- Primary Cervical spondylosis with myelopathy S/P cervical spinal fusion Arthrodesis status Myelomalacia Other myelopathy [facility] Diagnosis S/P cervical spinal fusion- Primary Arthrodesis status [facility] Diagnosis S/P cervical spinal fusion- Primary Arthrodesis status [facility] Diagnosis S/P cervical spinal fusion Arthrodesis status [facility] Diagnosis S/P cervical spinal fusion- Primary Arthrodesis status Cervical myelopathy Cervical spondylosis with myelopathy Myelomalacia Other myelopathy S/P cervical spinal fusion Arthrodesis status Cervical myelopathy Cervical spondylosis with myelopathy [facility] Diagnosis S/P cervical spinal fusion Arthrodesis status Cervical myelopathy Cervical spondylosis with myelopathy [facility] Diagnosis Onset Date Resolution Status Hyperammonemia acute Anxiety chronic Depression chronic Fatigue chronic Vitamin d deficiency chronic 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 MADELEINE (obstructive sleep apnea) chronic Hyperammonemia acute Anxiety chronic Depression chronic Fatigue chronic Vitamin d deficiency chronic Cervical myelopathy acute Chronic lumbar radiculopathy chronic Dyslipidemia chronic Hereditary hemochromatosis c hronic Hyperlipidemia chronic Hypertension chronic MADELEINE (obstructive sleep apnea) chronic [facility] Work Phone: History and physical note Author Guanaco Guerin [facility] May 22, 2023 6:32am Note Date/Time May 22, 2023 6: 32am [facility] Medical Records Department [address] [place] [id number] History & Physical Exam 05/22/23 0632 MR#: [id number] Acct: [id number] Name: IFTIKHAR FLEMING Rep #:[id number] : 1965 57 From: Guanaco Guerin DO PCP: Dr. Mary Dumont MD Status:[facility] Location: [place] [address] History and Physical Date of Admission: 05/22/23 IFTIKHAR FLEMING, is a 57 M who presents to the office today for PCP OV 4.6.23 for wellness noting chronic issues of chronic back pain, HTN, neuropathy (neurology, Effexor), depression, hypertriglyceridemia, anxiety. ? Biochemical CBC, CMP, Vit D25, lipid, PSA, TSH without pertinent abnormality. ? AST H46-ALT H101- AP82, triglyceride H322, cholesterol H205 *BGI established 5.25.23 with lower abdominal pain, bloating, loose/watery stools which can get better and worse: severe symptoms present approximately every 3-4 months with chronic diarrhea on a daily basis minimally 4 times. Cymbalta attempted for anxiety/depression though felt it caused GI distress and was stopped. Probiotic attempted and felt it caused abdominal pain. Recalls a medication in the past that was taken for this that he had a reaction to. ROS Const Constitutional: No body ache, chills, excessive sweating, fatigue, fever(s), frequent falls, headache(s), snoring, weakness, weight change, sleep problems orchange in appetite Eyes Eyes: No blurry vision, change in vision, eye pain or Light sensitivity ENT ENT: No abnormal hearing, ear or mastoid pain, tinnitus, nasal congestion, headache(s), neck pain or sore throat Resp Respiratory: No cough, shortness of breath, snoring or wheezing Cardio Cardiology: No chest pain at rest, chest pain with exertion, excessive sweating,shortness of breath, dyspnea on exertion, lightheadedness, orthopnea or palpitations Gastro GI: No abdominal pain, change in bowel habits, constipation, cramping, diarrhea,Vomiting blood/hematemesis, vomiting or other Genitourinary Male: No burning urination, painful urination, urinary incontinence or blood in urine Musc Musculoskeletal: Positive for back pain (left hip and leg chronic); No abnormal gait, joint pain, limited range of motion, neck pain, numbness or tingling Skin Skin: No dry skin, redness, lesions, itchy eyes, rash or wounds Breast Breast: No change in breast shape, breast lump, breast pain, breast skin changes, breast swelling, nipple discharge or other Neuro Neurology: No abnormal gait, abnormal hearing, abnormal speech, dizziness, weakness, frequent falls, headache(s), memory loss, numbness or tingling Psych Psychiatric: No anxiety, No change in appetite, No depression, No memory loss and No Thoughts of harming yourself/Others Endo Endocrine: No cold intolerance, excessive sweating, fatigue, flushing, heat intolerance, increased thirst/drinking, increased hunger or weight change Aller/Imm Allergy/Immunologic: No itchy eyes, seasonal allergy symptoms, hives or wheezing Regulo/Lymp Hematologic/Lymphatic: No easy bleeding, easy bruising, enlarged lymph nodes or other Exam Const General: cooperative, comfortable and no acute distress Orientation: alert and oriented x3 Limitations: mental status not altered HENVT Head: normal to inspection, normocephalic and atraumatic Ears: hearing grossly normal bilaterally Eyes General: appearance normal, both eyes and all related structures Neck Neck: normal visual inspection Resp Effort & Inspection: normal respiratory effort, able to speak in complete sentences, normal respiratory pattern and no cough Auscultation: Bilateral: Clear to Auscultation Cardio Rate: regular rate Rhythm: regular rhythm Heart Sounds: no gallops, no murmurs and no rubs Pulses: radial pulses present Musc Musculoskeletal: Yes decreased range of motion (Left shoulder due to pain); No joint redness or joint warmth Skin General: no rashes or lesions noted Trauma: no lacerations or abrasions Wounds: no wounds Neuro General: patient alert, patient oriented x3 and moves all extremities Cognition: normal cognition Speech: speech normal Extrem General: normal to inspection Other: Tenderness to palpation of the left medial deltoid. Psych Appearance: grossly normal Mental Status: mental status grossly normal Mood: congruent mood Affect: normal affect Speech and Movement: speech and movement normal Attitude: cooperative Quality Reporting Tobacco Screening ([facility] 138) Smoking Status: Never smoker Assessment and Plan Assessment and Plan (1) History of IBS: Status: Chronic Plan: He has a history of IBS with diarrhea. Differential diagnosis for him would be celiac disease with associated microscopic colitis, lymphocytic colitis, collagenous colitis, inflammatory bowel disease, exocrine pancreatic insufficiency. He should undergo colonoscopy with biopsies of the lower GI tract along with stool samples for fecal calprotectin, stool lactoferrin, stool culture and C. difficile (2) Elevated LFTs: Status: Chronic Plan: Differential diagnosis for his cholestatic hepatitis does include alcoholic hepatitis, less likely autoimmune hepatitis, celiac disease, transaminitis secondary to underlying muscle disease, viral hepatitis, IgG associated disease. He will undergo biochemical testing and we will get a FibroScan. I have examined the patient and the H&P has been reviewed. There are no clinical changes since date of exam. 05/22/23 0632 <Electronically signed by Guanaco Guerin DO> Cosigner Signature (if applicable): CC: Dr. Mary Dumont MD; Guanaco Guerin DO~ Signed [facility] Work Phone: Hospital Discharge instructions Additional Instructions Log your blood pressure twice daily. Show there is your primary care physician when you follow-up with him next week. Take your blood pressure medications as prescribed.[facility] Work Phone: Reason for referral (narrative)* Unlisted Procedure Code (Routine) - New Request Specialty Diagnoses / Procedures Referred By Contac t Referred To Contact Procedures NO MECHANICAL DVT PROPHYLAXIS Jose Mccrary MD, MBBS [address] [facility] [address] [place] [address] Referral ID Status Reason Start Date Expiration Date V isits Requested Visits Authorized [id number] New Request 12/19/2023 01/12/2025 1 1 * Unlisted Procedure Code (Routine) - New Request Specialty Diagnoses / Procedures Referred By Contac t Referred To Contact Procedures LOW RISK - NO PHARMACOLOGICAL DVT PROPHYLAXIS Jose Mccrary MD, MBBS [address] [facility] [address] [place] [address] Referral ID Status Reason Start Date Expiration Date V isits Requested Visits Authorized [id number] New Request 12/19/2023 01/12/2025 1 1 * Unlisted Procedure Code (Routine) - New Request Specialty Diagnoses / Procedures Referred By Contac t Referred To Contact Procedures DVT/VTE RISK ASSESSMENT Jose Mccrary MD, MBBS [address] [place] [address] Referral ID Status Reason Start Date Expiration Date V isits Requested Visits Authorized [id number] New Request 12/19/2023 01/12/2025 1 1 * (Routine) Specialty Diagnoses / Procedures Referred By Contac t Referred To Contact [address] [place] [address] Referral ID Status Reason Start Date Expiration Date Visits Re quested Visits Authorized * Unlisted Procedure Code (Routine) - New Request Specialty Diagnoses / Procedures Referred By Contac t Referred To Contact Procedures NO MECHANICAL DVT PROPHYLAXIS Jose Mccrary MD, LD [address] [place] [address] Referral ID Status Reason Start Date Expiration Date V isits Requested Visits Authorized [id number] New Request 12/19/2023 01/12/2025 1 1 * Unlisted Procedure Code (Routine) - New Request Specialty Diagnoses / Procedures Referred By Contac t Referred To Contact Procedures LOW RISK - NO PHARMACOLOGICAL DVT PROPHYLAXIS Jose Mccrary MD, LD [address] [place] [address] Referral ID Status Reason Start Date Expiration Date V isits Requested Visits Authorized [id number] New Request 12/19/2023 01/12/2025 1 1 * Unlisted Procedure Code (Routine) - New Request Specialty Diagnoses / Procedures Referred By Contac t Referred To Contact Procedures DVT/VTE RISK ASSESSMENT Jose Mccrary MD, LD [address] [place] [address] Referral ID Status Reason Start Date Expiration Date V isits Requested Visits Authorized [id number] New Request 12/19/2023 01/12/2025 1 1 [facility] Summary Purpose Family History No Family History Records Found Relationship Condition Age at Onset Recorded Date/T to Not Specified Diabetes mellitus Unknown Alcoholism Unknown Depression Unknown Myocardial infarction Unknown Hypertension Unknown Relationship Condition Age at Onset Recorded Date/T to Not Specified Diabetes mellitus Unknown Alcoholism Unknown Depression Unknown Myocardial infarction Unknown Hypertension Unknown sister Obstructive sleep apnea syndrome Unknown Advance Directives No Advanced Directives Records Found Advance Directive Response Recorded Date/ Time Advance Directives No September 04, 2014 1:01am Living Will No August 10, 019 12:45pm Power of Childcare Provider Yes August 10, 2019 12:45pm Advance Directive Response Recorded Date/ Time Advance Directives No July 11, 2022 8:24am Living Will No July 11 8:24am Power of Childcare Provider Yes July 11, 2022 8:24am Advance Directive Response Recorded Date/ Time Advance Directives No July 11, 2022 9:24am Living Will No July 11 9:24am Power of Childcare Provider Yes July 11, 2022 9:24am Advance Directive Response Recorded Date/ Time Advance Directives No July 11, 2022 9:24am Living Will No May 20 3 12:04pm Power of Childcare Provider No May 20, 023 12:04pm Advance Directive Response Recorded Date/ Time Advance Directives No July 11, 2022 8:24am Living Will No May 20 3 11:04am Power of Childcare Provider No May 20, 023 11:04am Latest Code Status on File Code Status Date Activated Date Inactivated Comments Full Code 12/19/2023 4:41 PM Advance Directive Response Recorded Date/ Time Advance Directives No July 11, 2022 9:24am Living Will No December 30, 2023 11:20am Power of Childcare Provider No December 29 11:20am Latest Code Status on File Code Status Date Activated Date Inactivated Comments Full Code 12/19/2023 4:41 PM Date Activated Date Inactivated Comments 12/19/2023 4:41 PM Date Activated Date Inactivated Comments 12/19/2023 4:41 PM Chief Complaint and Reason for Visit Chief Complaint PAIN IN ARM, BP ISSU ES left shoulder xray LT ROTATOR CUFF/RX HERE Reason for Visit Impingement syndrome , shoulder, left Chief Complaint Discuss spine surgeo n options Lumbar pain xray LUMBAR RAD Reason for Visit Chronic lumbar radic ulopathy Hyperlipidemia Hypertension Chronic lumbar radiculopathy Neuropathy Chief Complaint Discuss spine surgeo n options Lumbar pain xray LUMBAR RAD Lumbar spine Lt Ear Pain, Feels like something inside BILAT LOWER EXT NEUROPATHY lumber spine Reason for Visit Chronic lumbar radic ulopathy Hyperlipidemia Hypertension Chronic lumbar radiculopathy Neuropathy Idiopathic peripheral neuropathy Left temporomandibular joint disorder, unspecified Idiopathic peripheral neuropathy Chief Complaint Lumbar pain xray LUMBAR RAD Lumbar spine Lt Ear Pain, Feels like something inside BILAT LOWER EXT NEUROPATHY lumber spine PERIPHERAL POLYNEUROPATHY EORDER LOW BACK PAIN, RADICULOPATHY RX HERE Reason for Visit Chronic lumbar radic ulopathy Neuropathy Idiopathic peripheral neuropathy Left temporomandibular joint disorder, unspecified Idiopathic peripheral neuropathy Chronic lumbar radiculopathy Low back pain Polyneuropathy Chief Complaint LOW BACK PAIN, RADIC ULOPATHY RX HERE BILAT UPPER HAND WEAKNESS 4 M FU EORDER Reason for Visit Fatigue Anxiety Chronic lumbar radiculopathy Depression Hyperglycemia Low back pain Polyneuropathy Chief Complaint LOW BACK PAIN, RADIC ULOPATHY RX HERE BILAT UPPER HAND WEAKNESS 4 M FU EORDER Annual EORDER ELEVATED LFT'S Reason for Visit Fatigue Anxiety Chronic lumbar radiculopathy Depression Hyperglycemia Low back pain Polyneuropathy Encounter for wellness examination in adult Anxiety Depression Hypertension Hypertriglyceridemia Polyneuropathy Chief Complaint BILAT UPPER HAND WEA KNESS 4 M FU EORDER Annual EORDER ELEVATED LFT'S MED CONCERNS Reason for Visit Fatigue Anxiety Chronic lumbar radiculopathy Depression Hyperglycemia Low back pain Polyneuropathy Encounter for wellness examination in adult Anxiety Depression Hypertension Hypertriglyceridemia Polyneuropathy Vitamin d deficiency Anxiety Depression Polyneuropathy Chief Complaint 4 M FU EORDER Annual EORDER ELEVATED LFT'S MED CONCERNS Consult EORDER EORDER Reason for Visit Fatigue Anxiety Chronic lumbar radiculopathy Depression Hyperglycemia Low back pain Polyneuropathy Encounter for wellness examination in adult Anxiety Depression Hypertension Hypertriglyceridemia Polyneuropathy Vitamin d deficiency Anxiety Depression Polyneuropathy Elevated LFTs History of IBS Chief Complaint 4 M FU EORDER Annual EORDER ELEVATED LFT'S MED CONCERNS Consult EORDER EORDER HX IBS, ELEVATED LFT'S NEW-HEMOCHROMATOSIS Reason for Visit Fatigue Anxiety Chronic lumbar radiculopathy Depression Hyperglycemia Low back pain Polyneuropathy Encounter for wellness examination in adult Anxiety Depression Hypertension Hypertriglyceridemia Polyneuropathy Vitamin d deficiency Anxiety Depression Polyneuropathy Elevated LFTs History of IBS Chief Complaint 4 M FU EORDER Annual EORDER ELEVATED LFT'S MED CONCERNS Consult EORDER EORDER HX IBS, ELEVATED LFT'S NEW-HEMOCHROMATOSIS 2 M FU REVIEW LABS SLEEP APNEA Reason for Visit Fatigue Anxiety Chronic lumbar radiculopathy Depression Hyperglycemia Low back pain Polyneuropathy Encounter for wellness examination in adult Anxiety Depression Hypertension Hypertriglyceridemia Polyneuropathy Vitamin d deficiency Anxiety Depression Polyneuropathy Elevated LFTs History of IBS Fatigue Vitamin d deficiency Anxiety Depression Elevated LFTs Hyperlipidemia Hypertension Hypertriglyceridemia Polyneuropathy Hereditary hemochromatosis Chief Complaint EORDER ELEVATED LFT'S MED CONCERNS Consult EORDER EORDER HX IBS, ELEVATED LFT'S NEW-HEMOCHROMATOSIS 2 M FU REVIEW LABS SLEEP APNEA Sleep problems LABS/PHLEBO LIVER HEREDITARY HEMOCHROMATOSIS Reason for Visit Vitamin d deficiency Anxiety Depression Polyneuropathy Elevated LFTs History of IBS Fatigue Vitamin d deficiency Anxiety Depression Elevated LFTs Hyperlipidemia Hypertension Hypertriglyceridemia Polyneuropathy Hereditary hemochromatosis Sleep apnea Hypertension Chief Complaint MED CONCERNS Consult EORDER EORDER HX IBS, ELEVATED LFT'S NEW-HEMOCHROMATOSIS 2 M FU REVIEW LABS SLEEP APNEA Sleep problems LIVER HEREDITARY HEMOCHROMATOSIS HTN / CP / JIMENEZ / FATIGUE (SELF) LABS/PHLEBO Reason for Visit Fatigue Hyperlipidemia Hypertension Hypertriglyceridemia Hereditary hemochromatosis Hypertension Chest pain Dyslipidemia Dyspnea on exertion Hereditary hemochromatosis Hypertension Chief Complaint MED CONCERNS Consult EORDER EORDER HX IBS, ELEVATED LFT'S NEW-HEMOCHROMATOSIS 2 M FU REVIEW LABS SLEEP APNEA Sleep problems LIVER HEREDITARY HEMOCHROMATOSIS HTN / CP / JIMENEZ / FATIGUE (SELF) DYSPNEA Amb Documentation LABS/PHLEBO Reason for Visit Fatigue Hyperlipidemia Hypertension Hypertriglyceridemia Hereditary hemochromatosis Hypertension Chest pain Dyslipidemia Dyspnea on exertion Hereditary hemochromatosis Hypertension Chief Complaint Consult EORDER EORDER HX IBS, ELEVATED LFT'S NEW-HEMOCHROMATOSIS 2 M FU REVIEW LABS SLEEP APNEA Sleep problems LIVER HEREDITARY HEMOCHROMATOSIS HTN / CP / JIMENEZ / FATIGUE (SELF) DYSPNEA Amb Documentation 4 month f/u CHEST PAIN LABS/PHLEBO Reason for Visit Anxiety Depression Fatigue Hyperlipidemia Hypertension Hypertriglyceridemia Vitamin d deficiency Hereditary hemochromatosis Hypertension Chest pain Dyslipidemia Dyspnea on exertion Hereditary hemochromatosis Hypertension Hyperammonemia Anxiety Depression Fatigue Vitamin d deficiency Chief Complaint 3 M FU MADELEINE; TR 07/25/23 NB APPROVED PAPED PROBLEMS WITH MEDS EORDER 6 M FU Hemochromatosis - 60 min 4 MO - LABS- PHLEBO? DOING LABS IN AM (FASTING) LABS/PHLEBO Diarrhea 3 M FU R06.00 DYSPENA Reason for Visit Anxiety Depression Fatigue Vitamin d deficiency Chronic lumbar radiculopathy Dyslipidemia Hereditary hemochromatosis Hyperlipidemia Hypertension Hereditary hemochromatosis Hereditary hemochromatosis Dyspnea on exertion Chief Complaint 3 M FU MADELEINE; TR 07/25/23 NB APPROVED PAPED PROBLEMS WITH MEDS EORDER 6 M FU Hemochromatosis - 60 min 4 MO - LABS- PHLEBO? DOING LABS IN AM (FASTING) LABS/PHLEBO Diarrhea 3 M FU R06.00 DYSPENA RT Groin Pain 6 M FU MADELEINE Reason for Visit Anxiety Depression Fatigue Vitamin d deficiency Chronic lumbar radiculopathy Dyslipidemia Hereditary hemochromatosis Hyperlipidemia Hypertension Hereditary hemochromatosis Hereditary hemochromatosis Dyspnea on exertion History of hernia surgery Right groin pain Sleep apnea Dyslipidemia Dyspnea on exertion Hereditary hemochromatosis Hypertension Chief Complaint EORDER 6 M FU Hemochromatosis - 60 min 4 MO - LABS- PHLEBO? DOING LABS IN AM (FASTING) Diarrhea 3 M FU R06.00 DYSPENA RT Groin Pain 6 M FU MADELEINE RLQ PAIN LABS/PHLEBO 4 M FU 4 M FU HTN Reason for Visit Chronic lumbar radic ulopathy Dyslipidemia Hereditary hemochromatosis Hyperlipidemia Hypertension Hereditary hemochromatosis Hereditary hemochromatosis Dyspnea on exertion History of hernia surgery Right groin pain Sleep apnea Dyslipidemia Dyspnea on exertion Hereditary hemochromatosis Hypertension History of hernia surgery Right groin pain Anxiety Depression Elevated blood pressure reading Anxiety Hereditary hemochromatosis Hyperlipidemia Hypertension Chief Complaint DYSPNEA Amb Documentation 4 month f/u CHEST PAIN Amb Documentation 3 MO - LABS (FASTING - DOING IN AM) - PHLEBO?? 2 WK FU INT LAB/SPEC 3 M FU MADELEINE; TR 07/25/23 NB APPROVED PAPED LABS/PHLEBO PROBLEMS WITH MEDS EORDER 6 M FU Reason for Visit Hyperammonemia Anxiety Depression Fatigue Vitamin d deficiency Hereditary hemochromatosis Hereditary hemochromatosis MADELEINE (obstructive sleep apnea) Hyperammonemia Anxiety Depression Fatigue Vitamin d deficiency Cervical myelopathy Chronic lumbar radiculopathy Dyslipidemia Hereditary hemochromatosis Hyperlipidemia Hypertension MADELEINE (obstructive sleep apnea) Reason for Referral Specialty Diagnoses / Procedures Referred By Ratna morales Referred To Contact Diagnoses Myelopathy Procedures MRI SPINE CERVICAL WITHOUT CONTRAST [place] MRI, CERV SPINE Jose Mccrary MBBS [address] [facility] [place] [address] Referral ID Status Reason Start Date Expiration Date V isits Requested Visits Authorized [id number] Auth Not Needed 05/08/2023 06/01/2024 1 1 Specialty Diagnoses / Procedures Referred By Contac t Referred To Contact Diagnoses Degenerative disc disease, lumbar Spinal stenosis of lumbar region with neurogenic claudication Procedures MRI SPINE LUMBAR WITH AND WITHOUT CONTRAST [place] MRI, LUMBAR SPINE COMBO Jose Mccrary MBBS [address] [facility] [place] [address] Referral ID Status Reason Start Date Expiration Date V isits Requested Visits Authorized [id number] Auth Not Needed 05/08/2023 06/01/2024 1 1 Specialty Diagnoses / Procedures Referred By Contact Referred To Contact Sports Medicine and Rehabilitation Diagnoses Degenerative disc disease, lumbar Spinal stenosis of lumbar region with neurogenic claudication Myelopathy Jose Mccrary MBBS [address] [place] [address] Referral ID Status Reason Start Date Expiration Date V isits Requested Visits Authorized [id number] New Request 05/08/2023 06/01/2024 1 1 Referral ID Status Reason Start Date Expiration Date Visits Re quested Visits Authorized [id number] Closed 05/08/2023 06/01/2024 1 1 Referral ID Status Reason Start Date Expiration Date Visits Re quested Visits Authorized [id number] Closed 05/08/2023 06/01/2024 1 1 Specialty Diagnoses / Procedures Referred By Contac t Referred To Contact PreOp Diagnoses Cervical myelopathy Osteoarthritis of cervical spine with myelopathy Spinal stenosis of cervical region Cervical disc disease Jose Mccrary MBBS [address] [place], [place] [address] Referral ID Status Reason Start Date Expiration Date V isits Requested Visits Authorized [id number] New Request 10/02/2023 10/26/2024 1 1 Specialty Diagnoses / Procedures Referred By Contac t Referred To Contact Physical Therapy Diagnoses S/P cervical spinal fusion Jose Mccrary MBBS [address] [place] [address] Referral ID Status Reason Start Date Expiration Date V isits Requested Visits Authorized [id number] New Request 03/17/2024 04/11/2025 1 1 Scheduling Instructions [facility] [place] (Orthopedic, Sports Rehab) [address], [address], [place] [address] Outpatient Care [place] (Burn, Neurological, Orthopedic, Pelvic Health, Sports Rehab) [address] [facility], [address] [address] Outpatient Care [facility] (Orthopedic Rehab) [address], [address], [place] [address] Outpatient Care [place] (Orthopedic, Pelvic Health, Sports) [address] [facility], [address], [place] [address] Outpatient Care [place] - Pelvic Health [address] [facility], [address], [place] [address] Outpatient Care [place] (Orthopedic, Pelvic Health, Sports Rehab) [address], [address], [place] [address] Outpatient Care [facility] [place] (Aquatic, Burn, Neurological, Orthopedic, Pelvic Health Rehab) [address], [facility] [address], [place] [address] Outpatient Care [place] (Burn, Neurological, Orthopedic, Pelvic Health, Sports Rehab) [address] , [address] [place] [address] Outpatient Rehabilitation [facility]Neurological, Orthopedic Rehab) [address] [facility] [place] [address] Outpatient Rehabilitation [facility] (Aquatic, Burn, Neurological, Orthopedic, Pelvic Health Rehab) [address], [place] [address] Outpatient Rehabilitation [place] (Burn, Neurological, Orthopedic Rehab) [address] [place] [address] Sports Medicine Rehabilitation [email or web address] (Orthopedic, Sports Rehab) [address] [facility], [place] [address] [facility], [facility]) [address] , [place] [address] [facility] (Orthopedic, Sports Rehab) [address], [place] [address] Sports Medicine Rehabilitation [facility] (Aquatic, Orthopedic, Pelvic Health, Sports Rehab) [address], [place] [address] Sports Medicine Rehabilitation [facility] (Orthopedic, Sports Rehab) [address] [place] [address] Sports Medicine Rehabilitation [facility] (Orthopedic, Sports Rehab) [address] [facility], [place] [address] Additional Source Comments (unrecognized sect ion and content) No Status Records FoundNo Status Records FoundNo Status Records Found INFORMATION SOURCE (unrecogn ized section and content) DATE CREATED AUTHOR 10/30/2021 [facility] [facility] DATE CREATED AUTHOR 'S ZAHEER ATTIFFANIE 07/08/2024 [facility] DATE CREATED AUTHOR AUTHOR'S ORGANIZ ATION 08/12/2025 [facility] Care Teams (unrecognized sec tion and content) Authorization Representative Relationship Specialty Start Date End Date Anastasiia Haywood MD [address] [place] [address] Physician Rheumatology 07/05/20 Authorization Representative Relationship Specialty Start Date End Date Anastasiia Haywood MD [address] [place] [address] Physician Rheumatology 07/05/20 Team Status: Active Member Role Status Dates Dr. Charlie Handy MD Family Provider Active Dr. Mary Dumont MD Primary Care Provider Active Team Status: Inactive Member Role Status Dates Dr. Mary Dumont MD Primary Care Provider, Referri ng Provider Active Dr. Kenan Loya MD Attending Provider Active Team Status: Active Member Role Status Dates Dr. Mary Dumont MD Primary Care Provider Active Dr. Kenan Loya MD Attending Provider, Referring Provider Active Team Status: Inactive Member Role Status Dates Dr. Mary Dumont MD Primary Care Provider Active Dr. Kenan Loya MD Attending Provider Active Team Status: Inactive Member Role Status Dates Dr. Mary Dumont MD Primary Care Provider Active Dr. Kenan Loya MD Attending Provider, Referring Provider Active Team Status: Inactive Member Role Status Dates Dr. Mary Dumont MD Primary Care Provider, Attendi ng Provider Active Team Status: Inactive Member Role Status Dates Dr. Mary Dumont MD Primary Care Pro vider, Attending Provider, Referring Provider Active Team Status: Active Member Role Status Dates Dr. Mary Dumont MD Primary Care Pro vider, Attending Provider, Referring Provider Active Team Status: Inactive Member Role Status Dates Dr. Mary Dumont MD Primary Care Provider, Referri ng Provider Active Dr. Guanaco Guerin DO Attending Provider Active Team Status: Active Member Role Status Dates Dr. Mary Dumont MD Primary Care Provider Active Dr. Guanaco Guerni DO Attending Provider, Referring Provider Active Team Status: Inactive Member Role Status Dates Dr. Mary Dumont MD Primary Care Provider Active Dr. Guanaco Guerin DO Attending Provider, Referring Provider Active Team Status: Inactive Member Role Status Dates Dr. Mary Dumont MD Primary Care Provider, Referri ng Provider Active Dr. Sara Hawley MD Attending Provider Active Team Status: Inactive Member Role Status Dates Dr. Sara Hawley MD Attending Provider Active Team Status: Inactive Member Role Status Dates Dr. Mary Dumont MD Primary Care Provider, Referri ng Provider Active Shamika Sarabia LOAD PLANNER, LOAD PLANNER-C Attending Provider Active Team Status: Active Member Role Status Dates Dr. Mary Dumont MD Primary Care Provider Active Dr. Sara Hawley MD Attending Provider, Referrin g Provider Active Team Status: Inactive Member Role Status Dates Dr. Mary Dumont MD Primary Care Provider, Referri ng Provider Active Dr. Blake Goins MD Attending Provider Active Team Status: Active Member Role Status Dates Dr. Mary Dumont MD Primary Care Provider, Referri ng Provider Active Dr. Guanaco Guerin DO Attending Provider, Other Prov ider Active Team Status: Active Member Role Status Dates Dr. Mary Dumont MD Primary Care Provider Active Dr. Blake Goins MD Attending Provider Active Team Status: Active Member Role Status Dates Dr. Mary Dumont MD Primary Care Provider Active Iftikhar Nina LOAD PLANNER, LOAD PLANNER-C Attending Provider Active Team Status: Inactive Member Role Status Dates Dr. Mary Dumont MD Primary Care Provider Active Dr. Blake Goins MD Attending Provider, Referring Pr ovider Active Authorization Representative Relationship Specialty Start Date End Date Anastasiia Haywood MD [address] [place] [address] Physician Rheumatology 07/05/20 Authorization Representative Relationship Specialty Start Date End Date Mary Dumont MD [address] [place] [id number] PCP - General Pulmonary Disease 10/02/23 Team Status: Inactive Member Role Status Dates Dr. Mary Dumont MD Primary Care Provider, Referri ng Provider Active Dr. Markel Osborn DO Attending Provider Active Team Status: Inactive Member Role Status Dates Dr. Mary Dumont MD Primary Care Provider, Referri ng Provider Active Dr. Wyatt Briones MD Attending Provider Active Team Status: Inactive Member Role Status Dates Dr. Mary Dumont MD Primary Care Provider Active Dr. Wyatt Briones MD Attending Provider, Referring P rovider Active Team Status: Inactive Member Role Status Dates Dr. Mary Dumont MD Primary Care Provider Active Shamika Sarabia LOAD PLANNER, LOAD PLANNER-C Attending Provider, Referrin g Provider Active Team Status: Inactive Member Role Status Dates Dr. Mary Dumont MD Primary Care Provider Active Dr. Markel Osborn DO Attending Provider, Referring Pro vider Active Team Status: Inactive Member Role Status Dates Dr. Mary Dumont MD Primary Care Provider Active Shamika Sarabia LOAD PLANNER, LOAD PLANNER-C Attending Provider Active Authorization Representative Relationship Specialty Start Date End Date Mary Dumont MD [address] [place] [address] PCP - General Pulmonary Disease 10/02/23 Authorization Representative Relationship Specialty Start Date End Date Mary Dumont MD [address] [place] [address] PCP - General Pulmonary Disease 10/02/23 Team Status: Inactive Member Role Status Dates Dr. Mary Dumont MD Primary Care Provider, Referri ng Provider Active Dr. Harry Hill MD Attending Provider Active Team Status: Inactive Member Role Status Dates Dr. Mary Dumont MD Primary Care Provider Active Dr. Evens Luciano MD Emergency Provider Active Authorization Representative Relationship Specialty Start Date End Date Mary Dumont MD PCP - General Pulmonary Disease 10/02/23 Authorization Representative Relationship Specialty Start Date End Date Mary Dumont MD PCP - General Pulmonary Disease 10/02/23 Authorization Representative Relationship Specialty Start Date End Date Mary Dumont MD PCP - General Pulmonary Disease 10/02/23 Authorization Representative Relationship Specialty Start Date End Date Mary Dumont MD PCP - General Pulmonary Disease 10/02/23 Authorization Representative Relationship Specialty Start Date End Date Mary Dumont MD PCP - General Pulmonary Disease 10/02/23 Authorization Representative Relationship Specialty Start Date End Date Mary Dumont MD PCP - General Pulmonary Disease 10/02/23 Team Status: Active Member Role Status Dates Dr. Mary Dumont MD Primary Care Provider Active Mone Dotson LOAD PLANNER, LOAD PLANNER-C Attending Provider Active Authorization Representative Relationship Specialty Start Date End Date Anastasiia Haywood MD [address] [place] [address] Physician Rheumatology 07/05/20 Goals (unrecognized section and content) Goals may be documented in a n alternate sectionGoals may be documented in an alternate sectionGoals may be documented in an alternate sectionGoals may be documented in an alternate sectionGoals may be documented in an alternate sectionGoals may be documented in an alternate sectionGoals may be documented in an alternate sectionGoals may be documented in an alternate sectionGoals may be documented in an alternate sectionGoals may be documented in an alternate sectionGoals may be documented in an alternate sectionGoals may be documented in an alternate sectionGoals may be documented in an alternate sectionGoals may be documented in an alternate sectionGoals may be documented in an alternate sectionGoals may be documented in an alternate sectionGoals may be documented in an alternate section Reason for Visit (unrecogniz ed section and content) Reason Comments Pain Left lower back and radiating into foot. Previous history of surgery in 2015 - start discussion of surgery. Specialty Diagnoses / Procedures Referred By Ratna t Referred To Contact Orthopaedics Diagnoses Lumbar radiculopathy Polyneuropathy, unspecified Dorsopathy, unspecified Mary Dumont MD [address] [place] [address] [facility] [address] [place] [address] Referral ID Status Reason Start Date Expiration Date V isits Requested Visits Authorized [id number] Pending Review 04/08/2023 05/02/2024 1 1 Specialty Diagnoses / Procedures Referred By Contac t Referred To Contact Diagnoses Myelopathy Procedures MRI SPINE CERVICAL WITHOUT CONTRAST [place] MRI, CERV SPINE Jose Mccrary MBBS [address] [place], [place] [address] Referral ID Status Reason Start Date Expiration Date Visits Re quested Visits Authorized [id number] Closed 05/08/2023 06/01/2024 1 1 Specialty Diagnoses / Procedures Referred By Contac t Referred To Contact Diagnoses Degenerative disc disease, lumbar Spinal stenosis of lumbar region with neurogenic claudication Procedures MRI SPINE LUMBAR WITH AND WITHOUT CONTRAST [place] MRI, LUMBAR SPINE COMBO Jose Mccrary MBBS [address] [place], [place] [address] Referral ID Status Reason Start Date Expiration Date Visits Re quested Visits Authorized [id number] Closed 05/08/2023 06/01/2024 1 1 Reason Comments MRI Results Reason Comments Follow-up MRI Reason Comments Pre-operative Consultation Specialty Diagnoses / Procedures Referred By Contac t Referred To Contact PreOp Diagnoses Cervical myelopathy Osteoarthritis of cervical spine with myelopathy Spinal stenosis of cervical region Cervical disc disease Jose Mccrary MD, LD [address] [place], [place] [address] Referral ID Status Reason Start Date Expiration Date V isits Requested Visits Authorized [id number] Pending Review 10/02/2023 10/26/2024 1 1 Specialty Diagnoses / Procedures Referred By Contac t Referred To Contact Diagnoses Cervical myelopathy Osteoarthritis of cervical spine with myelopathy Spinal stenosis of cervical region Cervical disc disease Cervical myelopathy [G95.9] Osteoarthritis of cervical spine with myelopathy [M47.12] Spinal stenosis of cervical region [M48.02] Cervical disc disease [M50.90] Procedures KS ARTHRODESIS ANT INTERBODY INC DISCECTOMY, CERVICAL BELOW C2 KS ARTHRODESIS ANT INTERBODY INC DISCECTOMY, CERVICAL BELOW C2 EACH ADDL KS IONM 1 ON 1 IN OR W/ATTENDANCE EACH 15 MINUTES KS INSERT VERT FIX DEV,ANT,2-3 SGMTS KS MICROSURG TECHNIQUES,REQ OPER MICROSCOPE KS INSJ BIOMCHN DEV INTERVERTEBRAL DSC SPC W/ARTHRD FUSION ANTERIOR INTERBODY CERVICAL FUSION ANTERIOR INTERBODY CERVICAL EACH ADDL INTERSPACE ADD-ON PX MONITORING NEUROPHYSIOLOGY INTRAOPERATIVE ADD-ON PX APPLICATION INTERBODY/INTERVERTEBRAL BIOMECHANICAL DEVICE ADD-ON PX INSERTION SPINAL INSTRUMENTATION ANTERIOR ADD-ON PX MICROSURGICAL TECHNIQUES W/ OPERATING MICROSCOPE ADD-ON PX Jose Mccrary MD, MBBS [address] [place] [address] [facility] [address] [place] [address] Referral ID Status Reason Start Date Expiration Date Visits Re quested Visits Authorized [id number] 1 1 Reason Comments Post Op Visit Follow-up Reason Comments Post Op Visit Patient reports fall ing a couple days ago and hit his head and so he's a little concerned about his neck. He also reports pain in neck when shaking his head. Pain in hip when walking Reason Comments Post Op Visit Scheduled Active and Recently Administ ered Medications (unrecognized section and content) Medication Order 12/18/2023 12/19/2023 12/20/2023 Acetaminophen (TYLENOL) tablet 975 mg (COMPLETED) 975 mg, Oral, ONCE, 1 dose, On Carline 12/19/23 at 1200, Maximum dose of acetaminophen is 4000 mg from all sources in 24 hours., Pre-op/Pre-Proc 1241 (Given - Provider: Ignacia Mccallum RN) Acetaminophen (TYLENOL) tablet 975 mg 975 mg, Oral, EVERY 6 HOURS, First dose on Carline 12/19/23 at 1800, Until Discontinued, Maximum dose of acetaminophen is 4000 mg from all sources in 24 hours., Post-op/Post-Proc 1731 (Given - Provider: Mari Parker RN)2321 (Given - Provider: Viraj Del Rio RN) 0545 (Given - Provider: Viraj Del Rio RN)1137 (Not Given - Provider: Hellen Madison RN - Reason: Patient/family refused) ceFAZolin (ANCEF) 2 g in dextrose 100 mL premix IVPB 2 g, Intravenous, Administer over 30 Minutes, EVERY 8 HOURS, 30 doses, First dose on Sat12/19/23 at 2100, Last dose on Sat12/29/23 at 1400, Post-op/Post-Proc 2133 ($$New Bag$$ - Provider: Viraj Del Rio RN)2203 (Stopped - Provider: Viraj Del Rio RN) 0548 ($$New Bag$$ - Provider: Viraj Del Rio RN)0618 (Stopped - Provider: Viraj Del Rio RN)1400 (Canceled Entry - Provider: System Discharge - Comment: Automatically canceled at discontinue of medication order) dexAMETHasone (DECADRON) injection 2 mg (COMPLETED)(Linked Group 1) 2 mg, Intravenous, ONCE, 1 dose, On Sat12/20/23 at 0015 2321 (Given - Provider: Viraj Del Rio RN) dexAMETHasone (DECADRON) injection 4 mg (COMPLETED)(Linked Group 1) 4 mg, Intravenous, ONCE, 1 dose, On Sat12/19/23 at 1615 1731 (Given - Provider: Mari Parker RN) Gabapentin (NEURONTIN) capsule 100 mg 100 mg, Oral, EVERY 8 HOURS, First dose on Sat12/19/23 at 1645, Until Discontinued, Post-op/Post-Proc 1731 (Given - Provider: Mari Parker RN)2135 (Given - Provider: Viraj Del Rio RN) 0545 (Given - Provider: Viraj Del Rio RN)1400 (Canceled Entry - Provider: System Discharge - Comment: Automatically canceled at discontinue of medication order) Metoprolol (LOPRESSOR) tablet 50 mg 50 mg, Oral, 2 TIMES DAILY, First dose on Sat12/20/23 at 1115, Until Discontinued 1135 (Given - Provid er: Hellen Madison RN) povidone-iodine (3M SKIN and NASAL ANTISEPTIC) 5 % topical solution 1 Application (COMPLETED) 1 Application, Nasal, 60 MIN PRE-OP, 1 dose, On Sat12/19/23 at 1200, (1) Use a tissue to clean the inside of both nostrils including the inside tip of the nostril. (2) Tilting the bottle slightly, dip one swab into solution and stir vigorously for 10 seconds. Withdraw the swab slowly to avoid wiping solution off during removal. (3) Insert swab comfortably into one nostril and rotate for 15 seconds covering all surfaces. Then focus on the inside tip of nostril and rotate for an additional 15 seconds. (4) Using a new swab, repeat steps 2 & 3 with the other nostril. (5) Repeat the application in both nostrils using a fresh swab each time. (6) Do not blow nose. If solution drips out of nose, it can be lightly dabbed with a tissue., Pre-op/Pre-Proc 1241 (Given - Provider: Ignacia Mccallum, RN) Senna (SENOKOT) tablet 8.6 mg 8.6 mg, Oral, 2 TIMES DAILY, First dose on Sat12/19/23 at 1700, Until Discontinued, Post-op/Post-Proc 1732 (Not Given - Provider: Mari Parker RN - Reason: Patient/family refused) 0900 (Not Given - Provider: Hellen Madison RN - Reason: Patient/family refused) Sodium chloride 0.9% IV solution 250 mL Intravenous, at 20 mL/hr, SEE ADMIN INSTRUCTIONS, Starting on Sat12/19/23 at 1641, Until Sat12/20/23 at 1446, 250mL 0.9NS to be used as carrier fluid for intermittent small volume or piggyback medication administration as needed. Infusion rate of the carrier fluid should be set at 20 mL/hr unless the rate as the intermittent medication is less than 20 mL/hr. For intermittent medications with a rate less than 20 mL/hr set the carrier fluid at that rate of the intermittent or piggy back medication., Post-op/Post-Proc Continuous Medication Order 12/18/2023 12/19/2023 12/20/2023 Lactated ringers IV solution (CANCELED) Intravenous, at 50 mL/hr, CONTINUOUS, Starting on Sat12/19/23 at 1200, Until Sat12/19/23 at 1641, Pre-op/Pre-Proc 1239 ($$New Bag$$ - Provider : Ignacia Mccallum, WALTER) Lactated ringers IV solution Intravenous, at 75 mL/hr, CONTINUOUS, Starting on Sat12/19/23 at 1645, Until 12/20/23 at 0444, Post-op/Post-Proc 1717 (Rate/Dose Verify - Provider: Mari Parker, WALTER)2209 (Rate/Dose Verify - Provider: Viraj Del Rio, RN)2330 (Stopped - Provider: Viraj Del Rio, RN) Phenylephrine (VAZCULEP) 60 mg in Sodium chloride 0.9% 250 mL IV infusion (CANCELED) 0-5 mcg/kg/min 85.6 kg Order-specific weight (0-107 mL/hr), Intravenous, CONTINUOUS, Starting on Carline 12/19/23 at 1200, Until Carline 12/19/23 at 1641, Extravasation Risk, Intra-op/Intra-Proc 1319 ($$New Bag$$ - Provider : LAZ Bray)1358 (Rate/Dose Change - Provider: LAZ Bray)1404 (Rate/Dose Change - Provider: LAZ Bray)1412 (Rate/Dose Change - Provider: LAZ Bray)1506 (Stopped - Provider: LAZ Bray) remifentanil (ULTIVA) 1 mg in 0.9% sodium chloride 25 mL premade syringe (CANCELED) 0.1-0.2 mcg/kg/min 86.5 kg Order-specific weight (12.975-25.95 mL/hr, rounded to 13-26 mL/hr), Intravenous, CONTINUOUS, Starting on Carline 12/19/23 at 1200, Until Carline 12/19/23 at 1641, concentration = 40 mcg/ml, Intra-op/Intra-Proc 1311 ($$New Bag$$ - Provider : LAZ Bray)1318 (Rate/Dose Change - Provider: LAZ Bray)1358 (Rate/Dose Change - Provider: LAZ Bray)1455 (Rate/Dose Change - Provider: LAZ Bray)1501 (Stopped - Provider: LAZ Bray) PRN Medication Order 12/18/2023 12/19/2023 12/20/2023 alum/mag hydrox.-simethicone oral suspension 30 mL 30 mL, Oral, EVERY 6 HOURS NEEDED, Starting on Carline 12/19/23 at 1641, Until Sat12/20/23 at 1446, Other, heartburn, Per 5 mL is equivalent to: (Alum-Mag Hydroxide 200-225 mg and Simethicone 20 mg) and (Alum-Mag Hydroxide 200-200 mg and Simethicone 20 mg), Post-op/Post-Proc Benzocaine-menthol (CEPACOL) 15-3.6 MG per lozenge 1 lozenge 1 lozenge, Oral, EVERY 2 HOURS NEEDED, Starting on Carline 12/19/23 at 1641, Until Sat12/20/23 at 1446, Sore Throat, Let lozenge dissolve slowly in mouth. Maximum of 8 lozenges per day. Due to product shortages and availability, 15-3.6 MG and 15-2.6 MG strengths of benzocaine-menthol (CEPACOL) lozenges may be used interchangeably at [facility]., Post-op/Post-Proc bisacodyl (DULCOLAX) suppository 10 mg 10 mg, Rectal, DAILY NEEDED, 2 doses, Starting on Carline 12/19/23 at 1641, Until Sat12/20/23 at 1446, Constipation 2nd Line, if no BM within 24h of milk of 1st line constipation medication, May repeat once. Give if Milk of Magnesia ineffective., Post-op/Post-Proc ceFAZolin (ANCEF) 2 g in dextrose 100 mL premix IVPB (COMPLETED) 2 g, Intravenous, Administer over 30 Minutes, ELECT EQUIP MAINT ENG TO PROCEDURE, 1 dose, Starting on Carline 12/19/23 at 1147, Until Carline 12/19/23 at 1311, Other, Surgical Prophylaxis, Initiate antibiotic administration 30-60 minutes prior to surgical incision and complete administration prior to surgical incision., Pre-op/Pre-Proc 1311 (Given - Provider: LAZ Bray) Cyclobenzaprine (FLEXERIL) tablet 5 mg 5 mg, Oral, 3 TIMES DAILY NEEDED, Starting on Carline 12/19/23 at 1641, Until Sat12/20/23 at 1446, Muscle spasms, Post-op/Post-Proc 1135 (Given - Provid er: Hellen Madison RN) Diazepam (VALIUM) tablet 5 mg 5 mg, Oral, EVERY 6 HOURS NEEDED, Starting on Carline 12/19/23 at 1526, Until Sat12/20/23 at 1446, Muscle spasms 1545 (Given - Provider: Dionna Soares RN) Haloperidol lactate (HALDOL) injection 1 mg (COMPLETED) 1 mg, Intravenous, ONCE NEEDED, 1 dose, Starting on Carline 12/19/23 at 1536, Until Carline 12/19/23 at 1551, Refractory Nausea/vomiting, Use if patient still experiencing nausea/vomiting after 1st and 2nd line medications. Do not administer within 6 hours of intra-operative dose., Recovery 1551 (Given - Provider: Dionna Soares RN) HYDROmorphone (DILAUDID) injection 0.5 mg (CANCELED) 0.5 mg, Intravenous, EVERY 10 MINUTES NEEDED, 8 doses, Starting on Carline 12/19/23 at 1536, Until Carline 12/19/23 at 1641, Moderate Pain, Severe Pain, May give a total of 4mg in PACU., Recovery 1544 (Given - Provider: Dionna Soares RN)1605 (Given - Provider: Dionna Soares RN) Melatonin tablet 6 mg 6 mg, Oral, DAILY AT BEDTIME NEEDED, Starting on Carline 12/19/23 at 1641, Until Sat12/20/23 at 1446, Insomnia, Post-op/Post-Proc Ondansetron (ZOFRAN) tablet 4 mg(Linked Group 2) 4 mg, Oral, EVERY 6 HOURS NEEDED, Starting on Carline 12/19/23 at 1641, Until Sat12/20/23 at 1446, Nausea / Vomiting, 1st Line, Post-op/Post-Proc Ondansetron 4mg/2ml (ZOFRAN) injection 4 mg(Linked Group 2) 4 mg, Intravenous, EVERY 6 HOURS NEEDED, Starting on Carline 12/19/23 at 1641, Until Sat12/20/23 at 1446, Nausea / Vomiting, 1st line, If patient unable to tolerate PO., Post-op/Post-Proc oxyCODONE (ROXICODONE) tablet 5 mg(Linked Group 3) 5 mg, Oral, EVERY 4 HOURS NEEDED, Starting on Carline 12/19/23 at 1641, Until 12/20/23 at 1446, Moderate Pain, Severe Pain, Use as initial dose. Higher dose may be administered if lower dose was previously documented as ineffective and did not result in adverse effects (RR<10, decrease in level of consciousness)., Post-op/Post-Proc 1730 (Given - Provider: Mari Parker, WALTER)2134 (Given - Provider: Viraj Del Rio, WALTER) 0544 (See Alternative - Provider: Viraj Del Rio RN)1047 (See Alternative - Provider: Hellen Madison RN) oxyCODONE HCl (ROXICODONE) tablet 10 mg(Linked Group 3) 10 mg, Oral, EVERY 4 HOURS NEEDED, Starting on Carline 12/19/23 at 1641, Until Sat12/20/23 at 1446, Moderate Pain, Severe Pain, Higher dose may be administered if lower dose was previously documented as ineffective and did not result in adverse effects (RR<10, decrease in level of consciousness). Decrease back to lower dose if patient has adverse effects, or no PRN used in previous 12 hours., Post-op/Post-Proc 1730 (See Alternative - Provider: Mari Parker RN)2134 (See Alternative - Provider: Viraj Del Rio, WALTER) 0544 (Given - Provider: Viraj Del Rio RN)1047 (Given - Provider: Hellen Madison, RN) Polyvinyl Alcohol-Povidone PF (REFRESH) ophthalmic solution 1 drop 1 drop, Both Eyes, EVERY 2 HOURS NEEDED, Starting on Carline 12/19/23 at 1641, Until Sat12/20/23 at 1446, Dry Eyes, Patient may self-administer., Post-op/Post-Proc Prochlorperazine (COMPAZINE) injection 10 mg 10 mg, Intravenous, EVERY 6 HOURS NEEDED, Starting on Carline 12/19/23 at 1641, Until Sat12/20/23 at 1446, Nausea / Vomiting, 2nd Line, If unrelieved by Ondansetron. , Post-op/Post-Proc thrombin (THROMBIN-JMI) epistaxis kit (CANCELED) NEEDED, Starting on Carline 12/19/23 at 1504, Until Carline 12/19/23 at 1527, Intra-op/Intra-Proc 1504 (Given - Provider: Jose Mccrary MD, MBBS - Comment: MIXED WITH 100CC NACL TO SOAK NEURO SPONGES) traMADol (ULTRAM) tablet 50 mg 50 mg, Oral, EVERY 6 HOURS NEEDED, Starting on Carline 12/19/23 at 1641, Until Sat12/20/23 at 1446, Mild Pain, Post-op/Post-Proc Vancomycin HCl in NaCl (Vancocin) 1,250 mg 287.5 ml premade IVPB (COMPLETED) 1,250 mg (rounded from 1,284 mg = 15 mg/kg 85.6 kg Order-specific weight), Intravenous, Administer over 1 Hours, ELECT EQUIP MAINT ENG TO PROCEDURE, 1 dose, Starting on Carline 12/19/23 at 1147, Until Carline 12/19/23 at 1340, Other, Surgical Prophylaxis, Infusion must complete prior to surgical incision. Initiate antibiotic administration 60-120 minutes prior to surgical incision (depending on Administer Over Time)., Pre-op/Pre-Proc 1240 ($$New Bag$$ - Provider: Ignacia Mccallum RN) Linked Groups Order Group 1: dexAMETHasone (DECADRON) injection 4 mg (COMPLETED)Jump to med 4 mg, Intravenous, ONCE, 1 dose, On Carline 12/19/23 at 1615 Followed by dexAMETHasone (DECADRON) injection 2 mg (COMPLETED)Jump to med 2 mg, Intravenous, ONCE, 1 dose, On Sat12/20/23 at 0015 Group 2: Ondansetron (ZOFRAN) tablet 4 mgJump to med 4 mg, Oral, EVERY 6 HOURS NEEDED, Starting on Carline 12/19/23 at 1641, Until Sat12/20/23 at 1446, Nausea / Vomiting, 1st Line, Post-op/Post-Proc Or Ondansetron 4mg/2ml (ZOFRAN) injection 4 mgJump to med 4 mg, Intravenous, EVERY 6 HOURS NEEDED, Starting on Carline 12/19/23 at 1641, Until Sat12/20/23 at 1446, Nausea / Vomiting, 1st line, If patient unable to tolerate PO., Post-op/Post-Proc Group 3: oxyCODONE (ROXICODONE) tablet 5 mgJump to med 5 mg, Oral, EVERY 4 HOURS NEEDED, Starting on Carline 3/21/24 at 1641, Until Sat12/20/23 at 1446, Moderate Pain, Severe Pain, Use as initial dose. Higher dose may be administered if lower dose was previously documented as ineffective and did not result in adverse effects (RR<10, decrease in level of consciousness)., Post-op/Post-Proc Or oxyCODONE HCl (ROXICODONE) tablet 10 mgJump to med 10 mg, Oral, EVERY 4 HOURS NEEDED, Starting on Carline 12/19/23 at 1641, Until Sat12/20/23 at 1446, Moderate Pain, Severe Pain, Higher dose may be administered if lower dose was previously documented as ineffective and did not result in adverse effects (RR<10, decrease in level of consciousness). Decrease back to lower dose if patient has adverse effects, or no PRN used in previous 12 hours., Post-op/Post-Proc FOR RECORDS PERTAINING TO PATIENTS WHO ARE [...] BE BASED ON THE PRIMARY CLINICAL RECORDS. [employer] provides no warranty or guarantee of the accuracy or completeness of information in this document.
[2025-08-27 12:38] VITALS: BP 132/76; PULSE 73; RESP 16; TEMP 36.5; O2SAT 95; BMI 25.8
[2025-08-27 12:57] VITALS: BP 132/76; PULSE 78
[2025-08-27] MEDS: Nitroglycerin SL (ED/IMG/CATH) 0.4 MG TABLET SL (12:57)
[2025-08-27 13:52] VITALS: BP 133/75; PULSE 84; RESP 16; O2SAT 94
--- NOTE | 2025-08-27 16:21 | CCTA.WCONT ---
CCTA w/Cont Coronary Arteries Date of Study:: 08/27/25 Chest pain Coronary Calcium Scoring: High-resolution Computed Tomographic imaging of the chest was performed on [08/27/2025], with particular attention paid to the coronary arteries. Intravenous contrast agent was administered per protocol and images reconstructed and displayed. There is fairly significant motion artifact present on the scan LEFT MAIN CORONARY ARTERY: Arises from the left main coronary cusp and bifurcates the left anterior descending artery left circumflex artery [] LEFT ANTERIOR DESCENDING CORONARY ARTERY: Left anterior descending artery is a medium size vessel. There is proximal mild calcification noted with mild stenosis the vessel and continues towards the apex of the ventricle with no high-grade stenosis present [] LEFT CIRCUMFLEX CORONARY ARTERY: Nondominant left circumflex artery with mild stenosis minimal calcification [] RIGHT CORONARY ARTERY: Dominant right coronary artery with mild atherosclerotic plaque and mild stenosis noted. [] THORACIC AORTA: [] PULMONARY ARTERY: [] LEFT ATRIUM/APPENDAGE: [] MITRAL VALVE: [] AORTIC VALVE: [] LEFT VENTRICLE: [] CORONARY CALCIUM SCORE: 124 [] Findings Coronary Artery Left Main (LM): 0 Left Anterior Descending (LAD): 93.2 Left Circumflex (LCX): 2.78 Right Coronary Artery (RCA): 28.4 Total Agatston Score: 124.38 Percentile Rankin-75 Calcium Scoring Interpretation: Different methods to categorize the overall amount of coronary plaque. Overall amount CAC SIS Visual of coronary plaque P1 Mild -100 <2 1-2 vessels with mild amount of plaque P2 Moderate 101-300 3-4 1-2 vessels with moderate amount, 3 vessels with mild amount of plaque P3 Severe 301-999 5-7 3 vessels with moderate amount, 1 vessel with severe amount of plaque P4 Extensive >1000 >8 2-3 vessels with severe amount of plaque Calcium Score: Moderate: 1-2 vessels w/moderate amt, 3 vessels w/mild amt of plaque Conclusion: Mild to moderate predominantly two-vessel plaque noted. There is mild atherosclerotic plaque present with no significant angiographic stenosis present.
== END | disposition home or self-care (01) ==
LOC: CT 12:27
PROVIDERS: PCP Internal Medicine; Referring Provider Student in an Organized Health Care Education/Training Program; Visit Provider Student in an Organized Health Care Education/Training Program
DX: R07.9 Chest pain, unspecified (principal); Z82.49 Family history of ischemic heart disease and other diseases of the circulatory system
CPT/HCPCS: 75571; 75574; 76380; Q9967